=== PATIENT | female | born 1960 | race African-American/Black ===

== ENCOUNTER 2018-06-10 22:26 | Inpatient (IN) | payer MEDICARE, MEDICAID | END 2018-06-14 14:00 | disposition home or self-care (01) | LOC: TELE-WESTW 22:26 | DX: I21.4 Non-ST elevation (NSTEMI) myocardial infarction (principal); I25.118 Atherosclerotic heart disease of native coronary artery with other forms of angina pectoris; I10 Essential (primary) hypertension; K22.4 Dyskinesia of esophagus; K29.00 Acute gastritis without bleeding ==

== ENCOUNTER 2018-07-08 05:13 | Inpatient (IN) | payer MEDICARE, MEDICAID | END 2018-07-11 11:03 | disposition home or self-care (01) | LOC: ER 05:13 → TELE 07:41 → TELE-CENTR 14:57 | DX: I21.4 Non-ST elevation (NSTEMI) myocardial infarction (principal); N39.0 Urinary tract infection, site not specified; I24.9 Acute ischemic heart disease, unspecified; E11.9 Type 2 diabetes mellitus without complications; I10 Essential (primary) hypertension; E78.00 Pure hypercholesterolemia, unspecified; M79.7 Fibromyalgia ==

== ENCOUNTER 2020-01-18 15:24 | Inpatient (IN) | payer MEDICARE, MEDICAID ==
[~2020-01-18] VITALS: Ht 165.1 cm; Wt 104.0 kg
[~2020-01-18 15:24] MED LIST: ALBUAER3 IN; ARIP1TAB5 PO; ATOR20TA50 PO; CELE200C PO; CLOP75TA41 PO; DIP005TP TOP; DOCU1CAP46 PO; HALO0.053 EX; LAMO100T44 PO; LORA0.5T20 PO; LOSA100T22 PO; METO25TA93 PO; MORP30TA5 PO; PANT40TA2 PO; PERCOT PO; VALS1TAB57 PO; VALS40TA2 PO
--- NOTE | 2020-01-18 15:39 | NUR ---
Direct Admit Note: CANDELARIA HOOVER admitted to Telemetry unit as a direct admit per MD order. Patient oriented to FRAN UMAÑA, RN primary RN, unit, room, bed, and unit policies regarding patient care and visiting hours. Patient now on continuous telemetry monitoring, tele box # 80 and telemetry reading on arrival to unit is SR 85. Patient placed on bedside oxygen 2 lpm, weighed by bedscale and encouraged to call if they need something. All questions and concerns addressed, patient verbalized understanding. MD notified of patients arrival and admit orders received.
[2020-01-18] MEDS ORDERED: NITROGLYCERIN 0.4 MG SL TAB SL PRN (16:00)
[2020-01-18] MEDS ORDERED: MORPHINE SULF INJ 2 MG/ML SYRINGE 1ML IV PRN (16:00)
[2020-01-18] MEDS ORDERED: ALUM & MAG HYDROX-SIMETH LIQ(MAALOX) 30 ML PO PRN (16:00)
[2020-01-18] MEDS ORDERED: METF750T54 PO (16:37)
[2020-01-18] MEDS ORDERED: HYDR-3682 PO (16:37)
[2020-01-18] MEDS ORDERED: MUPI2CRE17 EX (16:37)
[2020-01-18] MEDS ORDERED: MORP1CAP31 PO (16:37)
[2020-01-18] MEDS ORDERED: OXYC-102 PO (16:37)
[2020-01-18] MEDS ORDERED: NITR0.4D3 TD (16:37)
[2020-01-18] MEDS ORDERED: CHOL500023 PO (16:37)
[2020-01-18] MEDS ORDERED: NIFE1TAB30 PO (16:37)
[2020-01-18] MEDS ORDERED: CALC-317 PO (16:37)
[2020-01-18] MEDS ORDERED: ROSU1TAB13 PO (16:37)
[2020-01-18] MEDS ORDERED: CLON0.5T3 PO (16:37)
[2020-01-18 16:39] VITALS: BP 178/91
--- NOTE | 2020-01-18 16:40 | NUR ---
PER MD ORDER EKG OBTAINED.
[2020-01-18 17:00] VITALS: BP 178/91
--- NOTE | 2020-01-18 17:00 | NUR ---
WOUND PHOTOS OBTAINED
[2020-01-18 17:39] LABS: Basophils # (auto) 0 10 ^3/uL (0-0.2); Basophils % (auto) 0.7 % (0.0-2.0); Eosinophils # (auto) 0.1 10 ^3/uL (0-0.8); Hemoglobin 11.8 g/dL (12.2-16.2); Monocytes # (auto) 0.1 10 ^3/uL (0-1.3); Nucleated Red Blood Cells % 0.1 %; Red Cell Distribution Width 15.3 % (11.8-14.3); White Blood Cell 6.3 10^3/uL (4.4-10.8)
[2020-01-18 17:41] LABS: Eosinophils % (auto) 2.4 % (0.0-7.0); Lymphocytes # (auto) 0.8 10 ^3/uL (0.4-5.4); Lymphocytes % (auto) 13.5 % (10.0-50.0); Mean Corpuscular Hemoglobin 25.1 pg (28.0-32.0); Mean Corpuscular Hgb Conc. 31.8 g/dL (32.0-36.0); Mean Corpuscular Volume 78.8 fL (80.0-100.0); Monocytes % (auto) 2.2 % (0.0-12.0); Neutrophils # (auto) 5.1 10 ^3/uL (1.6-8.6); Neutrophils % (auto) 81.2 % (37.0-80.0); Platelet Count (auto) 229 10^3/uL (140-450)
[2020-01-18] MEDS ORDERED: hydrOXYzine HCL 25 MG/ML VL IM PRN (17:45)
[2020-01-18] MEDS ORDERED: ONDANSETRON HCL 4 MG/2 ML VIAL IV PRN (17:45)
--- NOTE | 2020-01-18 17:45 | NUR ---
PATIENT PROVIDED WITH SPECIMEN CUP FOR SPUTUM AND URINE
[2020-01-18 17:46] LABS: Albumin 3.7 g/dL (3.4-5.0); Calcium 8.6 mg/dL (8.5-10.1)
[2020-01-18 17:50] LABS: BUN/Creatinine Ratio 13.8
[2020-01-18 17:53] LABS: Bilirubin, Total 0.2 mg/dL (0.2-1.0); Total Protein 7.7 g/dL (6.4-8.2)
--- NOTE | 2020-01-18 18:19 | NUR ---
BP AT THIS TIME IS 178/91 NO PRN MEDICATIONS AVAILABLE. 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 AWAITING CALL BACK.
--- NOTE | 2020-01-18 18:37 | NUR ---
IV insertion: IV access obtained, via clean sterile technique by inserting 22 gauge catheter at left forearm after 2 attempt. IV secured properly. No trauma to site. Patient tolerated well.
--- NOTE | 2020-01-18 18:45 | NUR ---
CLOSING NOTE: PATIENT RESTING IN BED. NO S/S OF DISTRESS. CARE ENDORSED.
--- NOTE | 2020-01-18 19:00 | NUR ---
PAGED DR. CARDOZO AT THIS TIME REGARDING BP AWAITING CALL BACK.
[2020-01-18] MEDS: ALBUTEROL SULF 2.5 MG/0.5ML(0.5%) NEB SOLN NEB SCH (19:03)
[2020-01-18] MEDS ORDERED: VALSARTAN 80 MG TAB PO ONE (19:30)
--- NOTE | 2020-01-18 19:30 | NUR ---
Blood Pressure Medication Dr. Hammad cote and was updated on the patient Blood Pressure. Dr. Charles ordered Diovan 160 mg PO once. Repeat orders to verified.
--- NOTE | 2020-01-18 19:45 | NUR ---
Opening Shift Note Assumed care of patient, awake and alert. No S/S of distress/SOB or pain. Instructed on POC and to call for assist PRN, will continue to monitor for changes Q1hr and PRN.
[2020-01-18] MEDS: SOD CHL 0.45% 1,000 ML IV SCH (19:50)
--- NOTE | 2020-01-18 19:50 | NUR ---
Medication Refused Patient refused blood pressure medication due to normal blood pressure. Blood pressure taken twice 119/56 heart rate 68.Educated patient but still refused.
[2020-01-18] MEDS: OXYCODONE W/ ACETAMINOPHEN 5/325MG TABLET PO PRN (20:07)
[2020-01-18 20:45] VITALS: BP 119/56
[2020-01-18] MEDS: PANTOPRAZOLE 40 MG/10 ML VIAL INJ IV SCH (20:59)
[2020-01-18] MEDS: cefTRIAXone 1GM/50ML D5W 50 ML IV SCH (20:59)
[2020-01-18] MEDS: methylPREDNISolone SOD SUCC 40 MG/ML VL IV SCH (21:00)
[2020-01-18] MEDS: METOPROLOL TARTRATE 25 MG TAB PO SCH (21:01)
[2020-01-18] MEDS: lamoTRIgine 100 MG TAB PO SCH (21:01)
[2020-01-18] MEDS: PRAVASTATIN SODIUM 20 MG TAB PO SCH (21:02)
--- NOTE | 2020-01-18 21:20 | NUR ---
IV insertion IV access obtained, via clean sterile technique by inserting 22 gauge catheter at after 3 attempts. IV secured properly. No trauma to site. Patient tolerated well.
[2020-01-18 22:00] VITALS: BP 155/85
[2020-01-18] MEDS: PSEUDOEPHEDRINE HCL 30 MG TAB PO SCH (22:00)
[2020-01-18] MEDS: ALBUTEROL SULF 2.5 MG/0.5ML(0.5%) NEB SOLN NEB PRN (23:06)
[2020-01-18 23:38] LABS: Urine Amorphous Crystal FEW /hpf (None Seen); Urine Bacteria FEW /hpf (None Seen); Urine Blood Negative /uL (Negative); Urine Mucus FEW (None Seen); Urine Specific Gravity 1.019 (1.001-1.035); Urine WBC 21 /hpf (0 - 5)
[2020-01-19] MEDS: OXYCODONE W/ ACETAMINOPHEN 5/325MG TABLET PO PRN ×2 (04:08→17:17)
[2020-01-19] MEDS: ALBUTEROL SULF 2.5 MG/0.5ML(0.5%) NEB SOLN NEB PRN (04:22)
[2020-01-19 05:42] VITALS: BP 149/79
[2020-01-19] MEDS: PSEUDOEPHEDRINE HCL 30 MG TAB PO SCH ×4 (05:50→21:47)
[2020-01-19] MEDS: methylPREDNISolone SOD SUCC 40 MG/ML VL IV SCH ×4 (05:51→21:45)
[2020-01-19 06:10] LABS: Basophils # (auto) 0 10 ^3/uL (0-0.2); Basophils % (auto) 0.2 % (0.0-2.0); Eosinophils # (auto) 0 10 ^3/uL (0-0.8); Hematocrit 38.2 % (36.0-46.0); Hemoglobin 12.2 g/dL (12.2-16.2); Lymphocytes # (auto) 1.1 10 ^3/uL (0.4-5.4); Lymphocytes % (auto) 15.8 % (10.0-50.0); Mean Corpuscular Hemoglobin 25.1 pg (28.0-32.0); Mean Corpuscular Hgb Conc. 31.9 g/dL (32.0-36.0); Mean Corpuscular Volume 78.6 fL (80.0-100.0); Monocytes # (auto) 0.1 10 ^3/uL (0-1.3); Monocytes % (auto) 1.8 % (0.0-12.0); Neutrophils # (auto) 5.7 10 ^3/uL (1.6-8.6); Neutrophils % (auto) 82.2 % (37.0-80.0); Nucleated Red Blood Cells % 0.1 %; Platelet Count (auto) 240 10^3/uL (140-450); Red Blood Cells 4.86 10^6/uL (4.0-5.20); Red Cell Distribution Width 15.6 % (11.8-14.3)
[2020-01-19 06:34] LABS: Potassium 4.4 mmol/L (3.5-5.1)
[2020-01-19 06:38] LABS: BUN/Creatinine Ratio 18.6; Calcium 9.1 mg/dL (8.5-10.1)
[2020-01-19] MEDS: ALBUTEROL SULF 2.5 MG/0.5ML(0.5%) NEB SOLN NEB SCH ×3 (06:45→18:49)
--- NOTE | 2020-01-19 07:15 | NUR ---
Opening Shift Note: Assumed care of patient, awake and alert. No S/S of distress/SOB or pain. Patient states "I feel much better than I did yesterday." Bed in lowest locked position, side rails up x 2, call light within reach. Patient instructed on POC and to call for assist PRN, will continue to monitor for changes Q1hr and PRN.
[2020-01-19] MEDS: SOD CHL 0.45% 1,000 ML IV SCH ×2 (08:00→12:15)
[2020-01-19 09:00] VITALS: BP 141/75
[2020-01-19] MEDS: cefTRIAXone 1GM/50ML D5W 50 ML IV SCH (09:18)
[2020-01-19] MEDS: PANTOPRAZOLE 40 MG/10 ML VIAL INJ IV SCH ×2 (09:18→21:45)
[2020-01-19] MEDS: lamoTRIgine 100 MG TAB PO SCH ×2 (09:19→21:46)
[2020-01-19] MEDS: CLOPIDOGREL BISULFATE 75 MG TAB PO SCH (09:23)
[2020-01-19] MEDS: VALSARTAN 80 MG TAB PO SCH (09:23)
[2020-01-19] MEDS: METOPROLOL TARTRATE 25 MG TAB PO SCH (09:24)
--- NOTE | 2020-01-19 10:45 | NUR ---
WOUND CARE NOTE: NOTED WOUND PHOTOS FROM OVERNIGHT ASSESSMENT, TAKEN BY BEDSIDE NURSE. PATIENT ADMITTED TO [facility] WITH DIAGNOSIS OF COPD. CURRENT BRODY SCORE IS 21. PATIENT HAS HISTORY WITH EXCEMA, WITH MULTIPLE LESIONS NOTED. PATIENT HAS SCRATCHED OPEN A SMALL AREA ON HIS BACK AND RLE. PATIENT WOULD BENEFIT FROM EOD/PRN DRESSING CHANGE TO OPEN WOUNDS AT THIS TIME. SKIN/WOUND CARE PLAN IMPLEMENTED. NO FURTHER WOUND CARE NEEDED.
[2020-01-19] MEDS ORDERED: PATIENTS OWN MEDICATION (Cholecalciferol (Vitamin D3) 1 TAB) PO SCH (12:00)
[2020-01-19] MEDS ORDERED: hydrOXYzine 25 MG TAB or CAP PO ONE (12:00)
[2020-01-19] MEDS ORDERED: ALBUTEROL SULF HFA 90MCG INH 200DOSE IN SCH (12:00)
[2020-01-19] MEDS ORDERED: hydrOXYzine 25 MG TAB or CAP PO PRN (12:00)
[2020-01-19] MEDS ORDERED: ALBUTEROL SULF 2.5 MG/0.5ML(0.5%) NEB SOLN NEB PRN (12:30)
[2020-01-19 13:00] VITALS: BP 126/65
[2020-01-19 17:00] VITALS: BP 122/74
[2020-01-19] MEDS: INSULIN LISPRO (HUMAN) 100 UNITS/ML ML SC SCH ×2 (17:11→21:49)
[2020-01-19] MEDS: clonazePAM 0.5 MG TAB PO SCH (17:11)
[2020-01-19] MEDS: metFORMIN HYDROCHLORIDE 850 MG TAB PO SCH (17:11)
[2020-01-19] MEDS ORDERED: ALBUTEROL SULF 2.5 MG/0.5ML(0.5%) NEB SOLN NEB SCH (18:00)
[2020-01-19] MEDS ORDERED: PATIENTS OWN MEDICATION (Nifedipine (Nifedipine Er) 1 TAB) PO SCH (18:00)
--- NOTE | 2020-01-19 18:17 | NUR ---
PAGED DR. CARDOZO AT THIS TIME REGARDING PATIENT PAIN LEVEL. AWAITING CALL BACK.
--- NOTE | 2020-01-19 18:48 | NUR ---
RECEIVED CALL FROM DR. CARDOZO. NEW ORDERS, READ BACK AND VERIFIED.
--- NOTE | 2020-01-19 18:49 | NUR ---
CLOSING NOTE: PATIENT RESTING IN BED. NO DISTRESS NOTED.
[2020-01-19] MEDS ORDERED: KETOROLAC TROMETH 30 MG/ML 1ML VIAL IV ONE (19:15)
--- NOTE | 2020-01-19 19:55 | NUR ---
Opening Shift Note Assumed care of patient, awake and alert. No S/S of distress/SOB. Patient c/o pain 12/02. Instructed on POC and to call for assist PRN, will continue to monitor for changes Q1hr and PRN.
[2020-01-19 20:00] VITALS: BP 134/76
[2020-01-19] MEDS: PRAVASTATIN SODIUM 20 MG TAB PO SCH (21:47)
[2020-01-19] MEDS: MUPIROCIN 2% OINT 15gm or 22gm TOP SCH (21:48)
[2020-01-19] MEDS: METOPROLOL SUCCINATE XL 50 MG TAB PO SCH (21:48)
[2020-01-19 22:00] VITALS: BP 134/76
[2020-01-19] MEDS ORDERED: METFORMIN HYDROCHLORIDE PO SCH (22:00)
[2020-01-19] MEDS ORDERED: PATIENTS OWN MEDICATION (Metoprolol Succinate (Metoprolol Succinate Er) 1 TAB) PO SCH (22:00)
[2020-01-19] MEDS ORDERED: MUPIROCIN CALCIUM 2% EX SCH (22:00)
[2020-01-20 05:00] VITALS: BP 131/68
[2020-01-20] MEDS: methylPREDNISolone SOD SUCC 40 MG/ML VL IV SCH ×3 (06:15→21:30)
[2020-01-20] MEDS: PSEUDOEPHEDRINE HCL 30 MG TAB PO SCH ×3 (06:15→21:31)
[2020-01-20] MEDS: INSULIN LISPRO (HUMAN) 100 UNITS/ML ML SC SCH ×4 (06:28→21:50)
[2020-01-20] MEDS: ALBUTEROL SULF 2.5 MG/0.5ML(0.5%) NEB SOLN NEB SCH (07:12)
[2020-01-20 08:00] VITALS: BP 148/82
[2020-01-20] MEDS: KETOROLAC TROMETH 30 MG/ML 1ML VIAL IV PRN ×2 (08:28→14:51)
[2020-01-20] MEDS: metFORMIN HYDROCHLORIDE 850 MG TAB PO SCH ×2 (08:29→18:02)
[2020-01-20 09:00] VITALS: BP 148/82
[2020-01-20] MEDS: CALCIUM CARB 500 MG CHEW TAB PO SCH (09:34)
[2020-01-20] MEDS: METOPROLOL SUCCINATE XL 50 MG TAB PO SCH ×2 (09:35→21:30)
[2020-01-20] MEDS: NIFEdipine ER 30 MG TAB PO SCH (09:36)
[2020-01-20] MEDS: CLOPIDOGREL BISULFATE 75 MG TAB PO SCH (09:36)
[2020-01-20] MEDS: lamoTRIgine 100 MG TAB PO SCH ×2 (09:37→21:30)
[2020-01-20] MEDS: CELECOXIB 100 MG CAP PO SCH (09:38)
[2020-01-20] MEDS: VALSARTAN 80 MG TAB PO SCH (09:38)
[2020-01-20] MEDS: PANTOPRAZOLE 40 MG/10 ML VIAL INJ IV SCH ×2 (09:39→21:30)
[2020-01-20] MEDS: ABILIFY 10 MG PO SCH (09:40)
[2020-01-20] MEDS: MUPIROCIN 2% OINT 15gm or 22gm TOP SCH ×2 (09:41→21:31)
[2020-01-20] MEDS ORDERED: PATIENTS OWN MEDICATION (Aripiprazole (Abilify) 10 MG) PO SCH (10:00)
[2020-01-20] MEDS ORDERED: CALCIUM CARBONATE CHOLECALCIFE PO SCH (10:00)
[2020-01-20] MEDS ORDERED: CELECOXIB 200 MG PO SCH (10:00)
[2020-01-20] MEDS: SOD CHL 0.45% 1,000 ML IV SCH ×2 (12:15→13:40)
[2020-01-20 13:00] VITALS: BP 133/76
[2020-01-20] MEDS ORDERED: ALBUTEROL SULF 2.5 MG/0.5ML(0.5%) NEB SOLN NEB SCH (13:15)
[2020-01-20] MEDS ORDERED: DEXTROSE (50%) 50ML SYRG IV PRN (13:45)
[2020-01-20] MEDS: ACCU-CHEK COMFORT CURVE STRIP VI SCH ×2 (17:00→21:31)
[2020-01-20 17:34] VITALS: BP 132/76
[2020-01-20] MEDS: clonazePAM 0.5 MG TAB PO SCH (18:01)
--- NOTE | 2020-01-20 19:35 | NUR ---
Opening Shift Note Assumed care of patient, awake and alert. No S/S of distress/SOB. Updated on POC and to call for assist PRN, patient verbalized understanding. Bed in lowest position, call light within reach, will continue to monitor for changes Q1hr and PRN.
[2020-01-20] MEDS: ALBUTEROL SULF 2.5 MG/0.5ML(0.5%) NEB SOLN NEB PRN (19:41)
[2020-01-20] MEDS: OXYCODONE W/ ACETAMINOPHEN 5/325MG TABLET PO PRN (20:09)
[2020-01-20] MEDS: PRAVASTATIN SODIUM 20 MG TAB PO SCH (21:29)
[2020-01-21 05:00] VITALS: BP 134/59
[2020-01-21] MEDS: PSEUDOEPHEDRINE HCL 30 MG TAB PO SCH (06:01)
[2020-01-21] MEDS: ACCU-CHEK COMFORT CURVE STRIP VI SCH ×2 (06:02→11:30)
[2020-01-21] MEDS: INSULIN LISPRO (HUMAN) 100 UNITS/ML ML SC SCH ×2 (06:02→11:30)
--- NOTE | 2020-01-21 07:35 | NUR ---
Opening Shift Note Received report from noc shift rn, awake and alert, sitting up in bed and in good mood. Denies pain, no SOB or s/s distress noted. Patient verbalized readiness to go home. Plan of care discussed, encouraged to call for assist PRN. Bed in locked and lowest position with x2 rails up, call light and phone within reach. Will continue to monitor for changes Q1hr and PRN.
[2020-01-21 08:00] VITALS: BP 136/73
[2020-01-21] MEDS: metFORMIN HYDROCHLORIDE 850 MG TAB PO SCH (08:29)
[2020-01-21] MEDS: methylPREDNISolone SOD SUCC 40 MG/ML VL IV SCH (08:33)
[2020-01-21] MEDS: PANTOPRAZOLE 40 MG/10 ML VIAL INJ IV SCH (08:33)
[2020-01-21] MEDS: CLOPIDOGREL BISULFATE 75 MG TAB PO SCH (08:34)
[2020-01-21] MEDS: METOPROLOL SUCCINATE XL 50 MG TAB PO SCH (08:34)
[2020-01-21] MEDS: CELECOXIB 100 MG CAP PO SCH (08:35)
[2020-01-21] MEDS: NIFEdipine ER 30 MG TAB PO SCH (08:35)
[2020-01-21] MEDS: CALCIUM CARB 500 MG CHEW TAB PO SCH (08:36)
[2020-01-21] MEDS: VALSARTAN 80 MG TAB PO SCH (08:37)
[2020-01-21] MEDS: lamoTRIgine 100 MG TAB PO SCH (08:37)
[2020-01-21] MEDS: MUPIROCIN 2% OINT 15gm or 22gm TOP SCH (08:37)
[2020-01-21] MEDS: ABILIFY 10 MG PO SCH (08:38)
[2020-01-21 09:00] VITALS: BP 136/73
[2020-01-21] MEDS ORDERED: FLUT250M2 INH (11:32)
[2020-01-21] MEDS ORDERED: ALBU1.257 IN (11:32)
[2020-01-21] MEDS: SOD CHL 0.45% 1,000 ML IV SCH (12:19)
[2020-01-21 13:00] VITALS: BP 137/74
[2020-01-21 13:12] VITALS: BP 136/73
--- NOTE | 2020-01-21 14:00 | NUR ---
Patient discharged home per MD's order. A/O x4, no s/s distress. Verbalized understanding of discharge summary and follow up instructions. IV discontinued and tele monitor returned to ICU.
[2020-01-22] MEDS ORDERED: ERGOCALCIFEROL 50,000 UNIT(1.25MG) CAP PO SCH (12:30)
== END 2020-01-21 14:00 | disposition home or self-care (01) | DRG 202 ==
LOC: TELE-WESTW 15:24
PROVIDERS: ADMIT Specialist; ATTEND Specialist
DX: J45.901 Unspecified asthma with (acute) exacerbation (principal); J44.1 Chronic obstructive pulmonary disease with (acute) exacerbation; F11.20 Opioid dependence, uncomplicated; J06.9 Acute upper respiratory infection, unspecified; M79.7 Fibromyalgia; K22.4 Dyskinesia of esophagus; K21.9 Gastro-esophageal reflux disease without esophagitis; I10 Essential (primary) hypertension; E11.9 Type 2 diabetes mellitus without complications; E66.09 Other obesity due to excess calories; E86.1 Hypovolemia; F31.9 Bipolar disorder, unspecified; G89.29 Other chronic pain; I25.10 Atherosclerotic heart disease of native coronary artery without angina pectoris; I25.2 Old myocardial infarction; Z79.84 Long term (current) use of oral hypoglycemic drugs; Z82.49 Family history of ischemic heart disease and other diseases of the circulatory system; Z83.3 Family history of diabetes mellitus; Z86.73 Personal history of transient ischemic attack (TIA), and cerebral infarction without residual deficits; Z87.891 Personal history of nicotine dependence; Z68.37 Body mass index [BMI] 37.0-37.9, adult; Z88.8 Allergy status to other drugs, medicaments and biological substances; Z71.3 Dietary counseling and surveillance
CPT/HCPCS: 36415; 71045; 80048; 80053; 81001; 82962; 83036; 85025; 87070; 87205; 93005; 94640; C9113; G0378; J0696; J1815; J1885

== ENCOUNTER 2020-06-23 12:47 | Inpatient (IN) | payer MEDICARE, MEDICAID ==
[~2020-06-23] VITALS: Ht 165.1 cm; Wt 103.9 kg
[~2020-06-23 12:47] MED LIST changes: +ALBU1.257 IN; -ATOR20TA50 PO; +CALC-317 PO; +CHOL500023 PO; +CLON0.5T3 PO; -CLOP75TA41 PO; +CLOP75TA70 PO; -DIP005TP TOP; +FLUT250M2 INH; +HYDR-3682 PO; -LAMO100T44 PO; -LORA0.5T20 PO; -LOSA100T22 PO; +METF750T54 PO; +MORP1CAP31 PO; -MORP30TA5 PO; +MUPI2CRE17 EX; +NIFE1TAB30 PO; +NITR0.4D5 TD; +OXYC-102 PO; -PANT40TA2 PO; -PERCOT PO; +ROSU1TAB13 PO; -VALS1TAB57 PO; -VALS40TA2 PO
[2020-06-23] MEDS ORDERED: MORPHINE SULFATE 4 MG/ML SYR/VIAL IV ONE (13:30)
[2020-06-23] MEDS ORDERED: ONDANSETRON HCL 4 MG/2 ML VIAL IV ONE (13:30)
[2020-06-23 13:58] LABS: Eosinophils # (auto) 0.3 10 ^3/uL (0-0.8); Hemoglobin 11.6 g/dL (12.2-16.2); Lymphocytes # (auto) 0.9 10 ^3/uL (0.4-5.4); Monocytes # (auto) 0.5 10 ^3/uL (0-1.3); Neutrophils # (auto) 2.5 10 ^3/uL (1.6-8.6); Nucleated Red Blood Cells % 0.1 %; White Blood Cell 4.3 10^3/uL (4.4-10.8)
[2020-06-23 14:01] LABS: Basophils # (auto) 0.1 10 ^3/uL (0-0.2); Basophils % (auto) 1.4 % (0.0-2.0); Eosinophils % (auto) 6.9 % (0.0-7.0); Hematocrit 35.5 % (36.0-46.0); Lymphocytes % (auto) 21.1 % (10.0-50.0); Mean Corpuscular Hemoglobin 25.9 pg (28.0-32.0); Mean Corpuscular Hgb Conc. 32.7 g/dL (32.0-36.0); Mean Corpuscular Volume 79.2 fL (80.0-100.0); Monocytes % (auto) 12.8 % (0.0-12.0); Neutrophils % (auto) 57.8 % (37.0-80.0); Platelet Count (auto) 224 10^3/uL (140-450); Red Blood Cells 4.49 10^6/uL (4.0-5.20); Red Cell Distribution Width 15.3 % (11.8-14.3)
[2020-06-23 14:19] LABS: INR 0.98 (0.9-1.15); Partial Thromboplastin Time 28.1 sec (23.0-31.2)
[2020-06-23 14:24] LABS: Albumin 3.3 g/dL (3.4-5.0); Calcium 8.6 mg/dL (8.5-10.1); Magnesium 1.9 mg/dL (1.6-2.6); Potassium 4.1 mmol/L (3.5-5.1)
[2020-06-23 14:31] LABS: BUN/Creatinine Ratio 18.5; Bilirubin, Total 0.4 mg/dL (0.2-1.0); Total Protein 7.1 g/dL (6.4-8.2)
[2020-06-23] MEDS ORDERED: NITROGLYCERIN 0.4 MG SL TAB SL PRN (15:00)
[2020-06-23] MEDS ORDERED: DOCUSATE SOD 100 MG CAP PO PRN (15:00)
[2020-06-23] MEDS ORDERED: LORazepam 2MG/ML-1ML VIAL IV PRN (15:15)
[2020-06-23] MEDS ORDERED: ERGOCALCIFEROL 50,000 UNIT(1.25MG) CAP PO SCH (15:15)
[2020-06-23] MEDS ORDERED: SOD CHL 0.45% 1,000 ML IV ONE (15:15)
[2020-06-23] MEDS: MORPHINE SULF INJ 2 MG/ML SYRINGE 1ML IV PRN (16:43)
[2020-06-23] MEDS: INSULIN LISPRO (HUMAN) 100 UNITS/ML ML SC SCH ×2 (17:00→22:30)
[2020-06-23] MEDS: ACCU-CHEK COMFORT CURVE STRIP VI SCH ×2 (17:13→22:29)
[2020-06-23 17:16] VITALS: BP 123/51
[2020-06-23] MEDS ORDERED: ALBUTEROL SULF 90 MCG IN PRN (18:00)
[2020-06-23 18:11] VITALS: BP 137/80
[2020-06-23] MEDS: NIFEdipine ER 30 MG TAB PO SCH (18:49)
[2020-06-23] MEDS: clonazePAM 0.5 MG TAB PO SCH (18:49)
[2020-06-23] MEDS: HYDROmorphone HCL 2 MG/ML VL IV PRN (19:49)
[2020-06-23] MEDS: Fluticasone-Salmeterol (Advair Diskus 250/50) INHALER IN SCH (22:00)
[2020-06-23] MEDS: ACETAMINOPHEN PO SCH (22:00)
[2020-06-23] MEDS: OXYCODONE PO SCH (22:00)
[2020-06-23] MEDS: METOPROLOL SUCCINATE XL 50 MG TAB PO SCH (22:29)
[2020-06-23] MEDS: MUPIROCIN 2% OINT 15gm or 22gm TOP SCH (22:29)
[2020-06-24] MEDS: HYDROmorphone HCL 2 MG/ML VL IV PRN ×4 (02:50→22:19)
[2020-06-24 04:59] VITALS: BP 121/65
[2020-06-24] MEDS: OXYCODONE PO SCH ×3 (06:00→22:00)
[2020-06-24] MEDS: ACETAMINOPHEN PO SCH ×3 (06:00→22:00)
[2020-06-24 06:15] LABS: Basophils # (auto) 0 10 ^3/uL (0-0.2); Basophils % (auto) 0.8 % (0.0-2.0); Eosinophils # (auto) 0.3 10 ^3/uL (0-0.8); Hematocrit 34.8 % (36.0-46.0); Hemoglobin 11.3 g/dL (12.2-16.2); Lymphocytes # (auto) 1.1 10 ^3/uL (0.4-5.4); Lymphocytes % (auto) 31.5 % (10.0-50.0); Mean Corpuscular Hemoglobin 25.9 pg (28.0-32.0); Mean Corpuscular Hgb Conc. 32.6 g/dL (32.0-36.0); Mean Corpuscular Volume 79.7 fL (80.0-100.0); Monocytes # (auto) 0.6 10 ^3/uL (0-1.3); Monocytes % (auto) 15.5 % (0.0-12.0); Neutrophils # (auto) 1.6 10 ^3/uL (1.6-8.6); Neutrophils % (auto) 44.2 % (37.0-80.0); Nucleated Red Blood Cells % 0.1 %; Platelet Count (auto) 208 10^3/uL (140-450); Red Blood Cells 4.36 10^6/uL (4.0-5.20); Red Cell Distribution Width 15.4 % (11.8-14.3); White Blood Cell 3.6 10^3/uL (4.4-10.8)
[2020-06-24] MEDS: ACCU-CHEK COMFORT CURVE STRIP VI SCH ×4 (06:16→22:12)
[2020-06-24] MEDS: INSULIN LISPRO (HUMAN) 100 UNITS/ML ML SC SCH ×4 (06:16→22:00)
[2020-06-24 06:27] LABS: Potassium 4.1 mmol/L (3.5-5.1)
[2020-06-24 06:39] LABS: Albumin 3.2 g/dL (3.4-5.0); BUN/Creatinine Ratio 19.6; Bilirubin, Total 0.3 mg/dL (0.2-1.0); Calcium 8.5 mg/dL (8.5-10.1); Total Protein 6.6 g/dL (6.4-8.2)
[2020-06-24] MEDS: ALBUTEROL SULF 2.5 MG/0.5ML(0.5%) NEB SOLN NEB PRN (07:36)
[2020-06-24 08:48] VITALS: BP 118/53
[2020-06-24] MEDS: ROSUVASTATIN CALCIUM 10 MG PO SCH (10:00)
[2020-06-24] MEDS: Fluticasone-Salmeterol (Advair Diskus 250/50) INHALER IN SCH ×2 (10:00→22:00)
[2020-06-24] MEDS: CALCIUM CARBONATE CHOLECALCIFE PO SCH (10:00)
[2020-06-24] MEDS: cefTRIAXone 1GM/50ML D5W 50 ML IV SCH (10:20)
[2020-06-24] MEDS: NITROGLYCERIN 0.4MG/HR TOPICAL PATCH TD SCH (10:21)
[2020-06-24] MEDS: CLOPIDOGREL BISULFATE 75 MG TAB PO SCH (10:21)
[2020-06-24] MEDS: METOPROLOL SUCCINATE XL 50 MG TAB PO SCH ×2 (10:22→22:11)
[2020-06-24] MEDS: MUPIROCIN 2% OINT 15gm or 22gm TOP SCH ×2 (10:22→22:12)
[2020-06-24] MEDS ORDERED: KETOROLAC TROMETH 30 MG/ML 1ML VIAL IV ONE (10:30)
[2020-06-24 13:00] VITALS: BP 131/62
[2020-06-24] MEDS ORDERED: ALUM & MAG HYDROX-SIMETH LIQ(MAALOX) 30 ML PO PRN (15:30)
[2020-06-24] MEDS ORDERED: ALUM & MAG HYDROX-SIMETH LIQ(MAALOX) 30 ML PO ONE (15:30)
[2020-06-24] MEDS ORDERED: IOHEXOL 350 MG/ML 100ML IJ ONE (15:33)
[2020-06-24 16:51] VITALS: BP 134/68
[2020-06-24] MEDS ORDERED: KETOROLAC TROMETH 30 MG/ML 1ML VIAL IV PRN (18:30)
[2020-06-24] MEDS: clonazePAM 0.5 MG TAB PO SCH (18:33)
[2020-06-24] MEDS: NIFEdipine ER 30 MG TAB PO SCH (18:34)
[2020-06-24 22:09] VITALS: BP 124/62
[2020-06-24] MEDS: PANTOPRAZOLE 40 MG/10 ML VIAL INJ IV SCH (22:10)
[2020-06-25 05:00] VITALS: BP 132/76
[2020-06-25] MEDS: ACETAMINOPHEN PO SCH ×3 (05:55→21:28)
[2020-06-25] MEDS: OXYCODONE PO SCH ×3 (05:55→21:28)
[2020-06-25] MEDS: INSULIN LISPRO (HUMAN) 100 UNITS/ML ML SC SCH ×4 (06:29→21:29)
[2020-06-25] MEDS: ACCU-CHEK COMFORT CURVE STRIP VI SCH ×4 (06:31→21:31)
[2020-06-25] MEDS: ALBUTEROL SULF 2.5 MG/0.5ML(0.5%) NEB SOLN NEB PRN (07:58)
[2020-06-25 08:00] VITALS: BP 124/62
[2020-06-25] MEDS: HYDROmorphone HCL 2 MG/ML VL IV PRN ×2 (08:32→19:30)
[2020-06-25 09:00] VITALS: BP 133/76
[2020-06-25] MEDS: PANTOPRAZOLE 40 MG/10 ML VIAL INJ IV SCH ×2 (09:41→21:31)
[2020-06-25] MEDS: Fluticasone-Salmeterol (Advair Diskus 250/50) INHALER IN SCH ×2 (09:41→21:28)
[2020-06-25] MEDS: ROSUVASTATIN CALCIUM 10 MG PO SCH (09:42)
[2020-06-25] MEDS: CLOPIDOGREL BISULFATE 75 MG TAB PO SCH (09:42)
[2020-06-25] MEDS: CALCIUM CARBONATE CHOLECALCIFE PO SCH (09:42)
[2020-06-25] MEDS: cefTRIAXone 1GM/50ML D5W 50 ML IV SCH (09:42)
[2020-06-25] MEDS: NITROGLYCERIN 0.4MG/HR TOPICAL PATCH TD SCH (09:43)
[2020-06-25] MEDS: MUPIROCIN 2% OINT 15gm or 22gm TOP SCH ×2 (09:43→21:31)
[2020-06-25] MEDS: METOPROLOL SUCCINATE XL 50 MG TAB PO SCH ×2 (10:00→21:40)
[2020-06-25] MEDS ORDERED: CITALOPRAM HYDROBR 20 MG TAB PO ONE ×2 (11:30→11:45)
[2020-06-25 13:00] VITALS: BP 119/71
[2020-06-25] MEDS: clonazePAM 0.5 MG TAB PO SCH (16:58)
[2020-06-25 17:00] VITALS: BP 139/65
[2020-06-25] MEDS: NIFEdipine ER 30 MG TAB PO SCH (17:00)
[2020-06-25 22:00] VITALS: BP 132/76
[2020-06-26 05:13] VITALS: BP 117/61
[2020-06-26] MEDS: OXYCODONE PO SCH ×3 (06:00→21:18)
[2020-06-26] MEDS: ACETAMINOPHEN PO SCH ×3 (06:00→21:18)
[2020-06-26] MEDS: ACCU-CHEK COMFORT CURVE STRIP VI SCH ×4 (06:55→21:19)
[2020-06-26] MEDS: INSULIN LISPRO (HUMAN) 100 UNITS/ML ML SC SCH ×4 (06:55→21:18)
[2020-06-26 08:00] VITALS: BP 132/76
[2020-06-26] MEDS: MORPHINE SULF INJ 2 MG/ML SYRINGE 1ML IV PRN (08:52)
[2020-06-26 09:00] VITALS: BP 131/68
[2020-06-26] MEDS: Fluticasone-Salmeterol (Advair Diskus 250/50) INHALER IN SCH ×2 (09:17→21:17)
[2020-06-26] MEDS: NITROGLYCERIN 0.4MG/HR TOPICAL PATCH TD SCH (09:18)
[2020-06-26] MEDS: PANTOPRAZOLE 40 MG/10 ML VIAL INJ IV SCH ×2 (09:30→21:48)
[2020-06-26] MEDS: CITALOPRAM HYDROBR 20 MG TAB PO SCH (09:31)
[2020-06-26] MEDS: CLOPIDOGREL BISULFATE 75 MG TAB PO SCH (09:31)
[2020-06-26] MEDS: MUPIROCIN 2% OINT 15gm or 22gm TOP SCH ×2 (09:31→21:50)
[2020-06-26] MEDS: cefTRIAXone 1GM/50ML D5W 50 ML IV SCH (09:31)
[2020-06-26] MEDS: METOPROLOL SUCCINATE XL 50 MG TAB PO SCH ×2 (09:32→21:49)
[2020-06-26] MEDS: ROSUVASTATIN CALCIUM 10 MG PO SCH (10:00)
[2020-06-26] MEDS ORDERED: CITALOPRAM HYDROBR 20 MG TAB PO SCH (10:00)
[2020-06-26] MEDS: CALCIUM CARBONATE CHOLECALCIFE PO SCH (10:00)
[2020-06-26 13:00] VITALS: BP 153/82
[2020-06-26 17:00] VITALS: BP 129/94
[2020-06-26] MEDS: clonazePAM 0.5 MG TAB PO SCH (17:03)
[2020-06-26] MEDS: NIFEdipine ER 30 MG TAB PO SCH (17:05)
[2020-06-26] MEDS: HYDROmorphone HCL 2 MG/ML VL IV PRN ×2 (17:06→21:16)
[2020-06-26 21:55] VITALS: BP 141/79
[2020-06-27] VITALS (7 sets, daily range): BP systolic 107–145; BP diastolic 53–89
[2020-06-27] MEDS: ACETAMINOPHEN PO SCH ×2 (05:03→14:00)
[2020-06-27] MEDS: OXYCODONE PO SCH ×2 (05:03→14:00)
[2020-06-27] MEDS: INSULIN LISPRO (HUMAN) 100 UNITS/ML ML SC SCH ×2 (06:21→11:30)
[2020-06-27] MEDS: ACCU-CHEK COMFORT CURVE STRIP VI SCH ×2 (06:22→11:30)
[2020-06-27] MEDS: HYDROmorphone HCL 2 MG/ML VL IV PRN (08:41)
[2020-06-27] MEDS ORDERED: ADENOSINE 87 MG in GIVE UN-DILUTED 0 ML IV STA (08:44)
[2020-06-27] MEDS: CITALOPRAM HYDROBR 20 MG TAB PO SCH (10:00)
[2020-06-27] MEDS: ROSUVASTATIN CALCIUM 10 MG PO SCH (10:00)
[2020-06-27] MEDS: CALCIUM CARBONATE CHOLECALCIFE PO SCH (10:00)
[2020-06-27] MEDS: Fluticasone-Salmeterol (Advair Diskus 250/50) INHALER IN SCH (10:00)
[2020-06-27] MEDS ORDERED: ALBUTEROL SULF 2.5 MG/0.5ML(0.5%) NEB SOLN ONE (10:41)
[2020-06-27] MEDS: ALBUTEROL SULF 2.5 MG/0.5ML(0.5%) NEB SOLN NEB PRN (10:42)
[2020-06-27] MEDS: PANTOPRAZOLE 40 MG/10 ML VIAL INJ IV SCH (11:43)
[2020-06-27] MEDS: cefTRIAXone 1GM/50ML D5W 50 ML IV SCH (11:44)
[2020-06-27] MEDS: CLOPIDOGREL BISULFATE 75 MG TAB PO SCH (11:46)
[2020-06-27] MEDS: NITROGLYCERIN 0.4MG/HR TOPICAL PATCH TD SCH (11:47)
[2020-06-27] MEDS: METOPROLOL SUCCINATE XL 50 MG TAB PO SCH (11:47)
[2020-06-27] MEDS: MUPIROCIN 2% OINT 15gm or 22gm TOP SCH (11:48)
== END 2020-06-27 16:45 | disposition home or self-care (01) | DRG 303 ==
LOC: EDBD 12:47 → ER 12:47 → EDUNIT# 12:47 → TELE 12:48 → TELE-WESTW 17:50
PROVIDERS: ADMIT Specialist; ATTEND Specialist
DX: I25.119 Atherosclerotic heart disease of native coronary artery with unspecified angina pectoris (principal); N39.0 Urinary tract infection, site not specified; E11.9 Type 2 diabetes mellitus without complications; E78.00 Pure hypercholesterolemia, unspecified; I10 Essential (primary) hypertension; F31.9 Bipolar disorder, unspecified; M79.7 Fibromyalgia; E66.09 Other obesity due to excess calories; S41.102A Unspecified open wound of left upper arm, initial encounter; K22.4 Dyskinesia of esophagus; S41.101A Unspecified open wound of right upper arm, initial encounter; Z20.822 Contact with and (suspected) exposure to COVID-19; X58.XXXA Exposure to other specified factors, initial encounter; J44.9 Chronic obstructive pulmonary disease, unspecified; L30.9 Dermatitis, unspecified; Y93.89 Activity, other specified; Y92.89 Other specified places as the place of occurrence of the external cause; Y99.8 Other external cause status; Z68.34 Body mass index [BMI] 34.0-34.9, adult; Z88.2 Allergy status to sulfonamides; Z79.02 Long term (current) use of antithrombotics/antiplatelets; Z79.84 Long term (current) use of oral hypoglycemic drugs; Z79.899 Other long term (current) drug therapy; Z82.49 Family history of ischemic heart disease and other diseases of the circulatory system; Z83.3 Family history of diabetes mellitus; Z86.73 Personal history of transient ischemic attack (TIA), and cerebral infarction without residual deficits; Z79.82 Long term (current) use of aspirin; Z87.891 Personal history of nicotine dependence; Z90.710 Acquired absence of both cervix and uterus; Z91.14 Patient's other noncompliance with medication regimen; Z98.61 Coronary angioplasty status; I25.2 Old myocardial infarction
CPT/HCPCS: 36415; 71045; 78452; 78582; 80053; 80061; 82962; 83036; 83735; 83880; 84443; 84484; 85025; 85610; 85730; 87426; 93005; 93017; 93306; 94640; 96361; 96374; 96375; C9113; G0378; J0153; J0696; J2405

== ENCOUNTER 2020-07-11 19:49 | Inpatient (IN) | payer MEDICARE, MEDICAID ==
[~2020-07-11] VITALS: Ht 167.6 cm; Wt 104.4 kg
[~2020-07-11 19:49] MED LIST changes: -MUPI2CRE17 EX; +MUPI2CRE17 TOP
[2020-07-11 22:00] VITALS: BP 128/73
[2020-07-11] MEDS ORDERED: KETOROLAC TROMETH 30 MG/ML 1ML VIAL IV PRN (22:30)
[2020-07-11] MEDS ORDERED: ALBUTEROL SULF 2.5 MG/0.5ML(0.5%) NEB SOLN NEB PRN (22:30)
[2020-07-11] MEDS: methylPREDNISolone SOD SUCC 40 MG/ML VL IV SCH (22:49)
[2020-07-11] MEDS: SOD CHL 0.45% 1,000 ML IV SCH (22:50)
[2020-07-11] MEDS: cefTRIAXone 1GM/50ML D5W 50 ML IV SCH (22:50)
[2020-07-11 23:02] LABS: Basophils # (auto) 0.1 10 ^3/uL (0-0.2); Basophils % (auto) 1.4 % (0.0-2.0); Mean Corpuscular Hgb Conc. 31.7 g/dL (32.0-36.0); Monocytes # (auto) 0.7 10 ^3/uL (0-1.3); Neutrophils # (auto) 2.7 10 ^3/uL (1.6-8.6); Nucleated Red Blood Cells % 0.2 %
[2020-07-11 23:04] LABS: Eosinophils % (auto) 14.3 % (0.0-7.0); Hematocrit 37.7 % (36.0-46.0); Lymphocytes # (auto) 2.4 10 ^3/uL (0.4-5.4); Mean Corpuscular Hemoglobin 25.1 pg (28.0-32.0); Mean Corpuscular Volume 79.3 fL (80.0-100.0); Monocytes % (auto) 10.3 % (0.0-12.0); Platelet Count (auto) 257 10^3/uL (140-450); Red Blood Cells 4.76 10^6/uL (4.0-5.20); Red Cell Distribution Width 15.6 % (11.8-14.3); White Blood Cell 6.8 10^3/uL (4.4-10.8)
[2020-07-11 23:22] LABS: Albumin 3.4 g/dL (3.4-5.0); BUN/Creatinine Ratio 21.1; Calcium 8.3 mg/dL (8.5-10.1); Magnesium 1.9 mg/dL (1.6-2.6)
[2020-07-11 23:25] LABS: Bilirubin, Total 0.1 mg/dL (0.2-1.0); INR 1.02 (0.9-1.15); Partial Thromboplastin Time 28.4 sec (23.0-31.2); Total Protein 7.2 g/dL (6.4-8.2)
[2020-07-11] MEDS: HYDROmorphone HCL 2 MG/ML VL IV PRN (23:29)
[2020-07-12 02:31] LABS: Urine Bacteria NONE SEEN /hpf (None Seen); Urine Blood Negative /uL (Negative); Urine Mucus FEW (None Seen); Urine Specific Gravity 1.024 (1.001-1.035); Urine WBC 26 /hpf (0 - 5)
[2020-07-12] MEDS: ALBUTEROL SULF 2.5 MG/0.5ML(0.5%) NEB SOLN NEB SCH ×4 (02:51→21:39)
[2020-07-12 05:00] VITALS: BP 119/62
[2020-07-12] MEDS: methylPREDNISolone SOD SUCC 40 MG/ML VL IV SCH ×3 (05:06→22:11)
[2020-07-12] MEDS ORDERED: MORPHINE SULF INJ 2 MG/ML SYRINGE 1ML IV PRN (05:45)
[2020-07-12] MEDS ORDERED: NITROGLYCERIN 0.4 MG SL TAB SL PRN (05:45)
[2020-07-12 08:24] LABS: Basophils # (auto) 0 10 ^3/uL (0-0.2); Eosinophils # (auto) 0 10 ^3/uL (0-0.8); Eosinophils % (auto) 0.2 % (0.0-7.0); Lymphocytes # (auto) 0.9 10 ^3/uL (0.4-5.4); Monocytes # (auto) 0.1 10 ^3/uL (0-1.3); Neutrophils # (auto) 4.4 10 ^3/uL (1.6-8.6); White Blood Cell 5.4 10^3/uL (4.4-10.8)
[2020-07-12 08:26] LABS: Basophils % (auto) 0.5 % (0.0-2.0); Hematocrit 37.4 % (36.0-46.0); Lymphocytes % (auto) 16.3 % (10.0-50.0); Mean Corpuscular Hemoglobin 25.3 pg (28.0-32.0); Mean Corpuscular Hgb Conc. 32.2 g/dL (32.0-36.0); Mean Corpuscular Volume 78.7 fL (80.0-100.0); Monocytes % (auto) 1.4 % (0.0-12.0); Neutrophils % (auto) 81.6 % (37.0-80.0); Nucleated Red Blood Cells % 0.1 %; Platelet Count (auto) 253 10^3/uL (140-450); Red Blood Cells 4.75 10^6/uL (4.0-5.20); Red Cell Distribution Width 15.9 % (11.8-14.3)
[2020-07-12 08:45] LABS: Potassium 4.2 mmol/L (3.5-5.1)
[2020-07-12 08:52] LABS: Albumin 3.2 g/dL (3.4-5.0); Bilirubin, Total 0.3 mg/dL (0.2-1.0); Calcium 8.4 mg/dL (8.5-10.1)
[2020-07-12 09:15] VITALS: BP 135/85
[2020-07-12] MEDS: LORATADINE 10 MG TAB PO SCH (09:18)
[2020-07-12] MEDS: FLUTICASONE PROP NASAL SPR 0.05 % (50MCG) 16GM EACHNOSTRI SCH ×2 (09:18→22:21)
[2020-07-12] MEDS: levoFLOXacin 500 MG TAB PO SCH (09:19)
[2020-07-12] MEDS: HYDROmorphone HCL 2 MG/ML VL IV PRN ×2 (09:20→17:30)
[2020-07-12] MEDS ORDERED: ALBUTEROL SULF 2.5 MG/0.5ML(0.5%) NEB SOLN NEB SCH (10:00)
[2020-07-12] MEDS ORDERED: ESCI5TAB PO (10:11)
[2020-07-12] MEDS: PSEUDOEPHEDRINE HCL 30 MG TAB PO SCH ×2 (10:34→22:12)
[2020-07-12] MEDS ORDERED: PATIENTS OWN MEDICATION (Cholecalciferol (Vitamin D3) 1 TAB) PO SCH (11:45)
[2020-07-12] MEDS ORDERED: DOCUSATE SOD 100 MG CAP PO PRN (11:45)
[2020-07-12] MEDS ORDERED: ALBUTEROL SULF HFA 90MCG INH 200DOSE IN SCH (12:00)
[2020-07-12 13:00] VITALS: BP 131/89
[2020-07-12] MEDS: OXYCODONE W/ ACETAMINOPHEN 5/325MG TABLET PO SCH ×2 (13:49→22:10)
[2020-07-12] MEDS ORDERED: ACETAMINOPHEN PO SCH (14:00)
[2020-07-12] MEDS ORDERED: OXYCODONE PO SCH (14:00)
[2020-07-12] MEDS ORDERED: DEXTROSE (50%) 50ML SYRG IV PRN (14:00)
[2020-07-12 17:00] VITALS: BP 145/77
[2020-07-12] MEDS: ACCU-CHEK COMFORT CURVE STRIP VI SCH ×2 (17:06→22:13)
[2020-07-12] MEDS: InsuLIN REG 1unit/0.01ml Soln (100units/ml) SC SCH ×2 (17:07→22:04)
[2020-07-12] MEDS: NIFEdipine ER 30 MG TAB PO SCH (17:22)
[2020-07-12] MEDS ORDERED: ALBUTEROL SULF 2.5 MG/0.5ML(0.5%) NEB SOLN NEB PRN (18:00)
[2020-07-12] MEDS ORDERED: PATIENTS OWN MEDICATION (Nifedipine (Nifedipine Er) 1 TAB) PO SCH (18:00)
[2020-07-12] MEDS: cefTRIAXone 1GM/50ML D5W 50 ML IV SCH (19:54)
[2020-07-12] MEDS ORDERED: OXYC20TA69 PO (20:44)
[2020-07-12] MEDS ORDERED: QUET25TA46 PO (20:44)
[2020-07-12] MEDS ORDERED: MULT1TAB69 PO (20:44)
[2020-07-12] MEDS ORDERED: METO-289 PO (20:44)
[2020-07-12] MEDS ORDERED: PATIENTS OWN MEDICATION (Metoprolol Succinate (Metoprolol Succinate Er) 1 TAB) PO SCH (22:00)
[2020-07-12] MEDS ORDERED: METFORMIN HYDROCHLORIDE PO SCH (22:00)
[2020-07-12] MEDS: Fluticasone-Salmeterol (Advair Diskus 250/50) IN SCH (22:11)
[2020-07-12] MEDS: MUPIROCIN 2% OINT 15gm or 22gm TOP SCH (22:12)
[2020-07-12] MEDS: metFORMIN HYDROCHLORIDE 500 MG TAB PO SCH (22:12)
[2020-07-12] MEDS: HALOBETASOL PROPIONATE 0.05% TOP SCH (22:12)
[2020-07-12 22:14] VITALS: BP 143/82
[2020-07-12] MEDS: SOD CHL 0.45% 1,000 ML IV SCH (22:45)
[2020-07-13] MEDS: HYDROmorphone HCL 2 MG/ML VL IV PRN ×2 (01:28→13:15)
[2020-07-13] MEDS: ALBUTEROL SULF 2.5 MG/0.5ML(0.5%) NEB SOLN NEB SCH ×6 (02:00→22:11)
[2020-07-13] MEDS: OXYCODONE W/ ACETAMINOPHEN 5/325MG TABLET PO SCH ×2 (04:38→14:00)
[2020-07-13] MEDS: methylPREDNISolone SOD SUCC 40 MG/ML VL IV SCH ×4 (04:38→21:34)
[2020-07-13 05:30] VITALS: BP 119/64
[2020-07-13] MEDS: ACCU-CHEK COMFORT CURVE STRIP VI SCH ×4 (06:11→21:36)
[2020-07-13] MEDS: InsuLIN REG 1unit/0.01ml Soln (100units/ml) SC SCH ×4 (06:12→21:43)
[2020-07-13 09:00] VITALS: BP 144/87
[2020-07-13] MEDS: Fluticasone-Salmeterol (Advair Diskus 250/50) IN SCH ×2 (09:14→21:50)
[2020-07-13] MEDS: FLUTICASONE PROP NASAL SPR 0.05 % (50MCG) 16GM EACHNOSTRI SCH ×2 (09:14→21:50)
[2020-07-13] MEDS: ROSUVASTATIN CALCIUM 10 MG PO SCH (09:15)
[2020-07-13] MEDS: LORATADINE 10 MG TAB PO SCH (09:15)
[2020-07-13] MEDS: CELECOXIB 100 MG CAP PO SCH (09:15)
[2020-07-13] MEDS: HALOBETASOL PROPIONATE 0.05% TOP SCH ×2 (09:16→21:35)
[2020-07-13] MEDS: MUPIROCIN 2% OINT 15gm or 22gm TOP SCH ×2 (09:16→21:51)
[2020-07-13] MEDS: metFORMIN HYDROCHLORIDE 500 MG TAB PO SCH ×2 (09:16→21:50)
[2020-07-13] MEDS: CLOPIDOGREL BISULFATE 75 MG TAB PO SCH (09:16)
[2020-07-13] MEDS: levoFLOXacin 500 MG TAB PO SCH (09:16)
[2020-07-13] MEDS: PSEUDOEPHEDRINE HCL 30 MG TAB PO SCH ×2 (09:16→21:35)
[2020-07-13] MEDS ORDERED: ESCITALOPRAM OXALATE 5 MG PO SCH (10:00)
[2020-07-13] MEDS ORDERED: CHOLECALCIFEROL (VITD3) 2,000 UNIT CAP/TAB PO SCH (12:30)
[2020-07-13 13:00] VITALS: BP 143/77
[2020-07-13] MEDS ORDERED: ALUM & MAG HYDROX-SIMETH LIQ(MAALOX) 30 ML GT PRN (14:45)
[2020-07-13] MEDS: cefTRIAXone 1GM/50ML D5W 50 ML IV SCH ×2 (15:11→21:33)
[2020-07-13 17:00] VITALS: BP 149/86
[2020-07-13] MEDS: NIFEdipine ER 30 MG TAB PO SCH (17:40)
[2020-07-13] MEDS: PANTOPRAZOLE 40 MG/10 ML VIAL INJ IV SCH (21:34)
[2020-07-13] MEDS: KETOROLAC TROMETH 30 MG/ML 1ML VIAL IV PRN (21:37)
[2020-07-13 22:00] VITALS: BP 139/72
[2020-07-13] MEDS: SOD CHL 0.45% 1,000 ML IV SCH (22:39)
[2020-07-14] MEDS: ALBUTEROL SULF 2.5 MG/0.5ML(0.5%) NEB SOLN NEB SCH ×3 (02:00→09:57)
[2020-07-14 05:00] VITALS: BP 125/78
[2020-07-14] MEDS: ACCU-CHEK COMFORT CURVE STRIP VI SCH ×2 (06:31→11:35)
[2020-07-14] MEDS: InsuLIN REG 1unit/0.01ml Soln (100units/ml) SC SCH ×2 (06:33→11:30)
[2020-07-14 09:00] VITALS: BP 151/53
[2020-07-14] MEDS ORDERED: LORA-483 PO (09:16)
[2020-07-14] MEDS ORDERED: CEFA-122 PO ×2 (09:16→09:17)
[2020-07-14] MEDS ORDERED: FLUT110A INH (09:19)
[2020-07-14] MEDS ORDERED: FLUT50SP EACHNOSTRI (09:19)
[2020-07-14] MEDS: LORATADINE 10 MG TAB PO SCH (09:41)
[2020-07-14] MEDS: MUPIROCIN 2% OINT 15gm or 22gm TOP SCH (09:41)
[2020-07-14] MEDS: FLUTICASONE PROP NASAL SPR 0.05 % (50MCG) 16GM EACHNOSTRI SCH (09:41)
[2020-07-14] MEDS: CLOPIDOGREL BISULFATE 75 MG TAB PO SCH (09:42)
[2020-07-14] MEDS: PANTOPRAZOLE 40 MG/10 ML VIAL INJ IV SCH (09:42)
[2020-07-14] MEDS: CELECOXIB 100 MG CAP PO SCH (09:42)
[2020-07-14] MEDS: methylPREDNISolone SOD SUCC 40 MG/ML VL IV SCH (09:42)
[2020-07-14] MEDS: PSEUDOEPHEDRINE HCL 30 MG TAB PO SCH ×2 (09:43→09:53)
[2020-07-14] MEDS: KETOROLAC TROMETH 30 MG/ML 1ML VIAL IV PRN (09:43)
[2020-07-14] MEDS: ROSUVASTATIN CALCIUM 10 MG PO SCH (09:45)
[2020-07-14] MEDS: HALOBETASOL PROPIONATE 0.05% TOP SCH (09:45)
[2020-07-14] MEDS: Fluticasone-Salmeterol (Advair Diskus 250/50) IN SCH (09:45)
[2020-07-14 09:49] VITALS: BP 125/78
[2020-07-14] MEDS: metFORMIN HYDROCHLORIDE 500 MG TAB PO SCH (09:52)
[2020-07-14] MEDS ORDERED: ESCITALOPRAM OXALATE 5 MG PO SCH (10:00)
== END 2020-07-14 11:38 | disposition home or self-care (01) | DRG 191 ==
LOC: WEST WING 19:49
PROVIDERS: ADMIT Specialist; ATTEND Specialist
DX: J44.1 Chronic obstructive pulmonary disease with (acute) exacerbation (principal); N39.0 Urinary tract infection, site not specified; M79.7 Fibromyalgia; K22.4 Dyskinesia of esophagus; E11.9 Type 2 diabetes mellitus without complications; E66.09 Other obesity due to excess calories; L30.9 Dermatitis, unspecified; E86.0 Dehydration; Z20.822 Contact with and (suspected) exposure to COVID-19; I27.81 Cor pulmonale (chronic); I11.0 Hypertensive heart disease with heart failure; E78.00 Pure hypercholesterolemia, unspecified; F31.9 Bipolar disorder, unspecified; I25.10 Atherosclerotic heart disease of native coronary artery without angina pectoris; I25.2 Old myocardial infarction; Z79.02 Long term (current) use of antithrombotics/antiplatelets; Z79.84 Long term (current) use of oral hypoglycemic drugs; Z79.82 Long term (current) use of aspirin; Z79.899 Other long term (current) drug therapy; Z82.49 Family history of ischemic heart disease and other diseases of the circulatory system; Z83.3 Family history of diabetes mellitus; Z86.73 Personal history of transient ischemic attack (TIA), and cerebral infarction without residual deficits; Z87.891 Personal history of nicotine dependence; Z91.11 Patient's noncompliance with dietary regimen; Z91.14 Patient's other noncompliance with medication regimen; Z68.37 Body mass index [BMI] 37.0-37.9, adult
CPT/HCPCS: 36415; 71045; 80053; 81001; 82962; 83735; 85025; 85610; 85730; 87081; 87086; 87426; 94640; A4605; C9113; G0378; J0696; J1815; J1885

== ENCOUNTER 2020-08-27 06:15 | Inpatient (IN) | payer MEDICARE, MEDICAID ==
[~2020-08-27] VITALS: Ht 165.1 cm; Wt 104.5 kg
[~2020-08-27 06:15] MED LIST changes: -ALBU1.257 IN; -CALC-317 PO; +CEFA-122 PO; -CHOL500023 PO; -CLON0.5T3 PO; +ESCI5TAB PO; +FLUT110A INH; -FLUT250M2 INH; +FLUT50SP EACHNOSTRI; -HALO0.053 EX; +LORA-483 PO; +METO-289 PO; -METO25TA93 PO; -MORP1CAP31 PO; +MULT1TAB69 PO; -NIFE1TAB30 PO; -OXYC-102 PO; +OXYC20TA69 PO; +QUET25TA46 PO
[2020-08-27] MEDS ORDERED: ACETAMINOPHEN 500 MG TAB PO PRN ×2 (07:15→08:15)
[2020-08-27] MEDS ORDERED: ALBUTEROL SULF 2.5 MG/0.5ML(0.5%) NEB SOLN NEB PRN (07:15)
[2020-08-27] MEDS ORDERED: HYDROmorphone HCL 2 MG/ML VL IV PRN ×2 (07:15)
[2020-08-27] MEDS ORDERED: MORPHINE SULF INJ 2 MG/ML SYRINGE 1ML IV PRN (07:15)
[2020-08-27] MEDS ORDERED: NITROGLYCERIN 0.4 MG SL TAB SL PRN (07:15)
[2020-08-27] MEDS ORDERED: SOD CHL 0.45% 1,000 ML IV SCH ×2 (07:45→08:15)
[2020-08-27 08:59] LABS: Albumin 3.3 g/dL (3.4-5.0); BUN/Creatinine Ratio 30.5; Calcium 8.4 mg/dL (8.5-10.1); Potassium 3.7 mmol/L (3.5-5.1)
[2020-08-27 09:00] VITALS: BP 144/87
[2020-08-27] MEDS: cefTRIAXone 1GM/50ML D5W 50 ML IV SCH ×2 (09:00→11:15)
[2020-08-27 09:04] LABS: Bilirubin, Total 0.2 mg/dL (0.2-1.0); Total Protein 6.8 g/dL (6.4-8.2)
[2020-08-27 09:06] LABS: INR 0.97 (0.9-1.15); Partial Thromboplastin Time 26.4 sec (23.0-31.2)
[2020-08-27] MEDS: metFORMIN HYDROCHLORIDE 850 MG TAB PO SCH ×2 (09:11→17:31)
[2020-08-27] MEDS ORDERED: DEXTROSE (50%) 50ML SYRG IV PRN (09:30)
[2020-08-27] MEDS: VALSARTAN 80 MG TAB PO SCH (09:48)
[2020-08-27] MEDS: METOPROLOL SUCCINATE XL 50 MG TAB PO SCH ×2 (09:48→21:55)
[2020-08-27] MEDS: CLOPIDOGREL BISULFATE 75 MG TAB PO SCH (09:48)
[2020-08-27] MEDS: ENOXAPARIN SOD 40 MG/0.4 ML SYRINGE SC SCH (09:49)
[2020-08-27] MEDS: OXYCODONE W/ ACETAMINOPHEN 5/325MG TABLET PO PRN (09:49)
[2020-08-27] MEDS: CRESTOR 10MG PO SCH (09:51)
[2020-08-27] MEDS ORDERED: ZOCOR 20MG PO SCH (10:00)
[2020-08-27] MEDS: ALBUTEROL SULF 2.5 MG/0.5ML(0.5%) NEB SOLN NEB SCH ×4 (10:11→23:06)
[2020-08-27] MEDS: HYDROmorphone HCL 2 MG/ML VL IV PRN ×3 (11:15→23:36)
[2020-08-27] MEDS: ACCU-CHEK COMFORT CURVE STRIP VI SCH ×3 (11:23→21:55)
[2020-08-27] MEDS: INSULIN LISPRO (HUMAN) 100 UNITS/ML ML SC SCH ×2 (11:30→17:32)
[2020-08-27] MEDS ORDERED: INSULIN LISPRO (HUMAN) 100 UNITS/ML ML SC SCH ×3 (11:30→22:00)
[2020-08-27] MEDS: levoFLOXacin 500MG 100 ML IV SCH (12:24)
[2020-08-27 13:00] VITALS: BP 149/72
[2020-08-27] MEDS: methylPREDNISolone SOD SUCC 40 MG/ML VL IV SCH ×2 (13:58→21:54)
[2020-08-27] MEDS ORDERED: cloNIDine HCL 0.1 MG TAB PO ONE (14:15)
[2020-08-27 14:55] LABS: Urine Bacteria FEW /hpf (None Seen); Urine Blood TRACE /uL (Negative); Urine Mucus FEW (None Seen); Urine Specific Gravity 1.013 (1.001-1.035); Urine WBC 18 /hpf (0 - 5)
[2020-08-27 15:38] VITALS: BP 128/77
[2020-08-27 16:52] VITALS: BP 143/74
[2020-08-27] MEDS: SENNA 8.6 MG TAB PO SCH (21:54)
[2020-08-27 22:00] VITALS: BP 157/82
[2020-08-27 23:00] VITALS: BP 127/67
[2020-08-28 00:57] LABS: Basophils # (auto) 0 10 ^3/uL (0-0.2); Eosinophils # (auto) 0 10 ^3/uL (0-0.8); Eosinophils % (auto) 0.1 % (0.0-7.0); Monocytes # (auto) 0.2 10 ^3/uL (0-1.3); Red Cell Distribution Width 15.5 % (11.8-14.3); White Blood Cell 8.5 10^3/uL (4.4-10.8)
[2020-08-28 00:59] LABS: Basophils % (auto) 0.4 % (0.0-2.0); Hematocrit 38.3 % (36.0-46.0); Hemoglobin 12.4 g/dL (12.2-16.2); Lymphocytes # (auto) 1.1 10 ^3/uL (0.4-5.4); Lymphocytes % (auto) 12.6 % (10.0-50.0); Mean Corpuscular Hgb Conc. 32.3 g/dL (32.0-36.0); Mean Corpuscular Volume 80.5 fL (80.0-100.0); Monocytes % (auto) 2.5 % (0.0-12.0); Neutrophils # (auto) 7.1 10 ^3/uL (1.6-8.6); Neutrophils % (auto) 84.4 % (37.0-80.0); Nucleated Red Blood Cells % 0.1 %; Platelet Count (auto) 216 10^3/uL (140-450); Red Blood Cells 4.76 10^6/uL (4.0-5.20)
[2020-08-28] MEDS: ALBUTEROL SULF 2.5 MG/0.5ML(0.5%) NEB SOLN NEB SCH ×7 (01:52→22:00)
[2020-08-28] MEDS: SOD CHL 0.45% 1,000 ML IV SCH (02:32)
[2020-08-28] MEDS: HYDROmorphone HCL 2 MG/ML VL IV PRN ×3 (03:28→17:24)
[2020-08-28 05:00] VITALS: BP 142/70
[2020-08-28] MEDS: methylPREDNISolone SOD SUCC 40 MG/ML VL IV SCH ×3 (06:34→21:59)
[2020-08-28] MEDS: ACCU-CHEK COMFORT CURVE STRIP VI SCH ×4 (06:34→22:00)
[2020-08-28] MEDS: INSULIN LISPRO (HUMAN) 100 UNITS/ML ML SC SCH ×4 (06:45→22:00)
[2020-08-28 07:53] LABS: Basophils # (auto) 0 10 ^3/uL (0-0.2); Eosinophils # (auto) 0 10 ^3/uL (0-0.8); Hemoglobin 12.4 g/dL (12.2-16.2); Lymphocytes # (auto) 1.1 10 ^3/uL (0.4-5.4); Lymphocytes % (auto) 11.3 % (10.0-50.0); Mean Corpuscular Hemoglobin 25.8 pg (28.0-32.0); Monocytes # (auto) 0.4 10 ^3/uL (0-1.3); Monocytes % (auto) 4.1 % (0.0-12.0); Nucleated Red Blood Cells % 0.1 %; Red Cell Distribution Width 15.6 % (11.8-14.3)
[2020-08-28 07:54] LABS: Basophils % (auto) 0.5 % (0.0-2.0); Eosinophils % (auto) 0.1 % (0.0-7.0); Hematocrit 38.3 % (36.0-46.0); Mean Corpuscular Hgb Conc. 32.4 g/dL (32.0-36.0); Mean Corpuscular Volume 79.7 fL (80.0-100.0); Neutrophils # (auto) 8.5 10 ^3/uL (1.6-8.6); Platelet Count (auto) 230 10^3/uL (140-450); White Blood Cell 10.1 10^3/uL (4.4-10.8)
[2020-08-28 08:13] LABS: Albumin 3.2 g/dL (3.4-5.0); Calcium 8.8 mg/dL (8.5-10.1); Potassium 4.2 mmol/L (3.5-5.1)
[2020-08-28 08:18] LABS: BUN/Creatinine Ratio 18.1; Bilirubin, Total 0.2 mg/dL (0.2-1.0)
[2020-08-28] MEDS: metFORMIN HYDROCHLORIDE 850 MG TAB PO SCH ×2 (08:19→17:24)
[2020-08-28] MEDS: cefTRIAXone 1GM/50ML D5W 50 ML IV SCH (08:19)
[2020-08-28 09:00] VITALS: BP_SYST 101; BP_SYST 142; BP_DIAS 54; BP_DIAS 61
[2020-08-28] MEDS: OXYCODONE W/ ACETAMINOPHEN 5/325MG TABLET PO PRN (09:04)
[2020-08-28] MEDS: ESCITALOPRAM 5 MG PO SCH (09:44)
[2020-08-28] MEDS: CRESTOR 10MG PO SCH (09:44)
[2020-08-28] MEDS: levoFLOXacin 500MG 100 ML IV SCH (09:44)
[2020-08-28] MEDS: METOPROLOL SUCCINATE XL 50 MG TAB PO SCH ×2 (09:45→22:00)
[2020-08-28] MEDS: CLOPIDOGREL BISULFATE 75 MG TAB PO SCH (09:45)
[2020-08-28] MEDS: amLODIPine BESYLATE 5 MG TAB PO SCH (09:45)
[2020-08-28] MEDS: VALSARTAN 80 MG TAB PO SCH (09:45)
[2020-08-28] MEDS: ENOXAPARIN SOD 40 MG/0.4 ML SYRINGE SC SCH (09:46)
[2020-08-28 13:00] VITALS: BP 161/76
[2020-08-28] MEDS ORDERED: PANTOPRAZOLE 40 MG/10 ML VIAL INJ IV ONE (13:15)
[2020-08-28] MEDS ORDERED: ALUM & MAG HYDROX-SIMETH LIQ(MAALOX) 30 ML PO PRN (13:15)
[2020-08-28 16:56] VITALS: BP 124/62
[2020-08-28 21:58] VITALS: BP 126/65
[2020-08-28] MEDS: SENNA 8.6 MG TAB PO SCH (21:59)
[2020-08-29] MEDS: ALBUTEROL SULF 2.5 MG/0.5ML(0.5%) NEB SOLN NEB SCH ×5 (02:00→22:00)
[2020-08-29] MEDS: HYDROmorphone HCL 2 MG/ML VL IV PRN ×2 (02:07→16:56)
[2020-08-29] MEDS: SOD CHL 0.45% 1,000 ML IV SCH (02:34)
[2020-08-29 05:32] VITALS: BP 141/60
[2020-08-29 06:18] LABS: Basophils # (auto) 0.1 10 ^3/uL (0-0.2); Basophils % (auto) 0.4 % (0.0-2.0); Eosinophils # (auto) 0 10 ^3/uL (0-0.8); Hematocrit 38.2 % (36.0-46.0); Hemoglobin 12.5 g/dL (12.2-16.2); Lymphocytes # (auto) 1.2 10 ^3/uL (0.4-5.4); Lymphocytes % (auto) 9.9 % (10.0-50.0); Mean Corpuscular Hemoglobin 26.1 pg (28.0-32.0); Mean Corpuscular Hgb Conc. 32.8 g/dL (32.0-36.0); Mean Corpuscular Volume 79.4 fL (80.0-100.0); Monocytes # (auto) 0.8 10 ^3/uL (0-1.3); Monocytes % (auto) 6.4 % (0.0-12.0); Neutrophils # (auto) 10.3 10 ^3/uL (1.6-8.6); Neutrophils % (auto) 83.3 % (37.0-80.0); Platelet Count (auto) 235 10^3/uL (140-450); Red Blood Cells 4.81 10^6/uL (4.0-5.20); Red Cell Distribution Width 15.9 % (11.8-14.3); White Blood Cell 12.4 10^3/uL (4.4-10.8)
[2020-08-29] MEDS: methylPREDNISolone SOD SUCC 40 MG/ML VL IV SCH ×3 (06:20→23:00)
[2020-08-29] MEDS: ACCU-CHEK COMFORT CURVE STRIP VI SCH ×5 (06:22→22:45)
[2020-08-29] MEDS: INSULIN LISPRO (HUMAN) 100 UNITS/ML ML SC SCH ×5 (06:22→23:13)
[2020-08-29 06:38] LABS: Albumin 3.1 g/dL (3.4-5.0); Potassium 4.4 mmol/L (3.5-5.1)
[2020-08-29 06:41] LABS: BUN/Creatinine Ratio 22.1; Bilirubin, Total 0.2 mg/dL (0.2-1.0); Total Protein 6.8 g/dL (6.4-8.2)
[2020-08-29] MEDS: cefTRIAXone 1GM/50ML D5W 50 ML IV SCH (08:12)
[2020-08-29] MEDS: metFORMIN HYDROCHLORIDE 850 MG TAB PO SCH ×2 (08:12→17:17)
[2020-08-29 09:00] VITALS: BP 157/72
[2020-08-29] MEDS: levoFLOXacin 500MG 100 ML IV SCH (09:12)
[2020-08-29] MEDS: CRESTOR 10MG PO SCH (09:12)
[2020-08-29] MEDS: ESCITALOPRAM 5 MG PO SCH (09:12)
[2020-08-29] MEDS: amLODIPine BESYLATE 5 MG TAB PO SCH (09:13)
[2020-08-29] MEDS: CLOPIDOGREL BISULFATE 75 MG TAB PO SCH (09:13)
[2020-08-29] MEDS: VALSARTAN 80 MG TAB PO SCH (09:13)
[2020-08-29] MEDS: PANTOPRAZOLE 40 MG TAB PO SCH (09:14)
[2020-08-29] MEDS: METOPROLOL SUCCINATE XL 50 MG TAB PO SCH ×2 (09:14→23:00)
[2020-08-29] MEDS: ENOXAPARIN SOD 40 MG/0.4 ML SYRINGE SC SCH (09:15)
[2020-08-29 12:47] VITALS: BP 149/77
[2020-08-29 16:46] VITALS: BP 143/64
[2020-08-29] MEDS: OXYCODONE W/ ACETAMINOPHEN 5/325MG TABLET PO PRN (20:37)
[2020-08-29 22:00] VITALS: BP 157/80
[2020-08-29] MEDS: SENNA 8.6 MG TAB PO SCH (23:00)
[2020-08-30] VITALS (8 sets, daily range): BP systolic 136–179; BP diastolic 66–92
[2020-08-30] MEDS: HYDROmorphone HCL 2 MG/ML VL IV PRN ×3 (01:03→15:28)
[2020-08-30] MEDS: ALBUTEROL SULF 2.5 MG/0.5ML(0.5%) NEB SOLN NEB SCH ×7 (02:00→22:00)
[2020-08-30] MEDS: SOD CHL 0.45% 1,000 ML IV SCH ×2 (02:30→08:44)
[2020-08-30] MEDS: amLODIPine BESYLATE 5 MG TAB PO SCH (04:44)
[2020-08-30] MEDS: ACCU-CHEK COMFORT CURVE STRIP VI SCH ×4 (05:57→21:51)
[2020-08-30] MEDS: methylPREDNISolone SOD SUCC 40 MG/ML VL IV SCH ×3 (06:23→21:57)
[2020-08-30] MEDS: INSULIN LISPRO (HUMAN) 100 UNITS/ML ML SC SCH ×4 (06:41→21:55)
[2020-08-30] MEDS: metFORMIN HYDROCHLORIDE 850 MG TAB PO SCH ×2 (08:39→18:05)
[2020-08-30] MEDS: levoFLOXacin 500MG 100 ML IV SCH (08:39)
[2020-08-30] MEDS: cefTRIAXone 1GM/50ML D5W 50 ML IV SCH (08:39)
[2020-08-30] MEDS: ESCITALOPRAM 5 MG PO SCH (08:40)
[2020-08-30] MEDS: CRESTOR 10MG PO SCH (08:40)
[2020-08-30] MEDS: CLOPIDOGREL BISULFATE 75 MG TAB PO SCH (08:41)
[2020-08-30] MEDS: PANTOPRAZOLE 40 MG TAB PO SCH (08:41)
[2020-08-30] MEDS: ENOXAPARIN SOD 40 MG/0.4 ML SYRINGE SC SCH (08:43)
[2020-08-30] MEDS: VALSARTAN 80 MG TAB PO SCH (08:53)
[2020-08-30] MEDS: METOPROLOL SUCCINATE XL 50 MG TAB PO SCH ×2 (08:53→21:59)
[2020-08-30] MEDS ORDERED: CRESTOR 20MG PO SCH (18:00)
[2020-08-30] MEDS: OXYCODONE W/ ACETAMINOPHEN 5/325MG TABLET PO PRN (21:14)
[2020-08-30] MEDS: SENNA 8.6 MG TAB PO SCH (21:59)
[2020-08-31] MEDS: ALBUTEROL SULF 2.5 MG/0.5ML(0.5%) NEB SOLN NEB SCH ×4 (02:00→14:00)
[2020-08-31 05:00] VITALS: BP 170/98
[2020-08-31 05:35] VITALS: BP 139/71
[2020-08-31] MEDS: methylPREDNISolone SOD SUCC 40 MG/ML VL IV SCH ×2 (06:29→14:00)
[2020-08-31] MEDS: ACCU-CHEK COMFORT CURVE STRIP VI SCH ×2 (06:34→11:54)
[2020-08-31] MEDS: INSULIN LISPRO (HUMAN) 100 UNITS/ML ML SC SCH ×2 (06:48→11:30)
[2020-08-31] MEDS: metFORMIN HYDROCHLORIDE 850 MG TAB PO SCH (08:26)
[2020-08-31] MEDS: cefTRIAXone 1GM/50ML D5W 50 ML IV SCH (08:30)
[2020-08-31 09:00] VITALS: BP 137/69
[2020-08-31] MEDS: levoFLOXacin 500MG 100 ML IV SCH (10:14)
[2020-08-31] MEDS: ESCITALOPRAM 5 MG PO SCH (10:17)
[2020-08-31] MEDS: VALSARTAN 80 MG TAB PO SCH (10:18)
[2020-08-31] MEDS: CLOPIDOGREL BISULFATE 75 MG TAB PO SCH (10:21)
[2020-08-31] MEDS: PANTOPRAZOLE 40 MG TAB PO SCH (10:22)
[2020-08-31] MEDS: METOPROLOL SUCCINATE XL 50 MG TAB PO SCH (10:23)
[2020-08-31] MEDS: ENOXAPARIN SOD 40 MG/0.4 ML SYRINGE SC SCH (10:24)
[2020-08-31] MEDS: amLODIPine BESYLATE 5 MG TAB PO SCH (10:37)
[2020-08-31 13:00] VITALS: BP 141/74
== END 2020-08-31 16:18 | disposition home or self-care (01) | DRG 190 ==
LOC: TELE-WESTW 06:15
PROVIDERS: ADMIT Specialist; ATTEND Specialist
DX: J44.1 Chronic obstructive pulmonary disease with (acute) exacerbation (principal); I21.4 Non-ST elevation (NSTEMI) myocardial infarction; J45.901 Unspecified asthma with (acute) exacerbation; N39.0 Urinary tract infection, site not specified; M79.7 Fibromyalgia; Z20.822 Contact with and (suspected) exposure to COVID-19; E11.9 Type 2 diabetes mellitus without complications; E66.09 Other obesity due to excess calories; L30.9 Dermatitis, unspecified; E86.1 Hypovolemia; E86.0 Dehydration; I25.10 Atherosclerotic heart disease of native coronary artery without angina pectoris; E78.00 Pure hypercholesterolemia, unspecified; M19.90 Unspecified osteoarthritis, unspecified site; Z86.73 Personal history of transient ischemic attack (TIA), and cerebral infarction without residual deficits; Z79.84 Long term (current) use of oral hypoglycemic drugs; Z87.891 Personal history of nicotine dependence; Z88.8 Allergy status to other drugs, medicaments and biological substances; Z79.899 Other long term (current) drug therapy; Z68.36 Body mass index [BMI] 36.0-36.9, adult
CPT/HCPCS: 36415; 71046; 73562; 80053; 81001; 82962; 83880; 84443; 84484; 85025; 85610; 85730; 87426; 93306; 94640; C9113; G0378; J0696; J1815; J1956

== ENCOUNTER 2020-10-14 17:40 | Inpatient (IN) | payer MEDICARE, MEDICAID ==
[~2020-10-14] VITALS: Ht 165.1 cm; Wt 103.0 kg
[2020-10-14 22:00] VITALS: BP 130/65
[2020-10-14] MEDS ORDERED: ASPirin-EC 81 mg tab PO ONE (22:15)
[2020-10-14] MEDS ORDERED: cefTRIAXone 1GM/50ML D5W 50 ML IV ONE (22:15)
[2020-10-14] MEDS ORDERED: MORPHINE SULF INJ 2 MG/ML SYRINGE 1ML IV PRN ×2 (22:15)
[2020-10-14] MEDS ORDERED: NITROGLYCERIN 0.4 MG SL TAB SL PRN ×3 (22:15)
[2020-10-14] MEDS ORDERED: CLOPIDOGREL BISULFATE 75 MG TAB PO ONE (22:15)
[2020-10-14 22:36] VITALS: BP 130/65
[2020-10-14 22:41] LABS: Basophils # (auto) 0.1 10 ^3/uL (0-0.2); Eosinophils # (auto) 0.7 10 ^3/uL (0-0.8); Hemoglobin 11.9 g/dL (12.2-16.2); Monocytes # (auto) 0.8 10 ^3/uL (0-1.3); Neutrophils # (auto) 2.5 10 ^3/uL (1.6-8.6); Neutrophils % (auto) 38.5 % (37.0-80.0)
[2020-10-14 22:42] LABS: Basophils % (auto) 1.3 % (0.0-2.0); Lymphocytes # (auto) 2.4 10 ^3/uL (0.4-5.4); Lymphocytes % (auto) 37.3 % (10.0-50.0); Mean Corpuscular Hemoglobin 25.3 pg (28.0-32.0); Mean Corpuscular Hgb Conc. 32.2 g/dL (32.0-36.0); Mean Corpuscular Volume 78.7 fL (80.0-100.0); Monocytes % (auto) 12.9 % (0.0-12.0); Nucleated Red Blood Cells % 0.1 %; Red Cell Distribution Width 14.9 % (11.8-14.3); White Blood Cell 6.5 10^3/uL (4.4-10.8)
[2020-10-14 22:54] LABS: INR 1.04 (0.9-1.15); Partial Thromboplastin Time 28.8 sec (23.0-31.2)
[2020-10-14 22:58] LABS: Albumin 3.3 g/dL (3.4-5.0); BUN/Creatinine Ratio 21.7; Calcium 8.3 mg/dL (8.5-10.1); Potassium 3.4 mmol/L (3.5-5.1)
[2020-10-14 23:00] VITALS: BP 130/65
[2020-10-14 23:03] LABS: Bilirubin, Total 0.2 mg/dL (0.2-1.0); Total Protein 6.6 g/dL (6.4-8.2)
[2020-10-14] MEDS: MORPHINE SULF INJ 2 MG/ML SYRINGE 1ML IV PRN (23:03)
[2020-10-14] MEDS: SOD CHL 0.45% 1,000 ML IV SCH (23:03)
[2020-10-14] MEDS ORDERED: ONDANSETRON HCL 4 MG/2 ML VIAL IV PRN (23:45)
[2020-10-15] MEDS ORDERED: POTASSIUM CHL 20MEQ/100ML 100 ML IV ONE ×2 (02:15→08:30)
[2020-10-15] MEDS: KETOROLAC TROMETH 30 MG/ML 1ML VIAL IV PRN ×3 (02:55→17:17)
[2020-10-15 05:30] VITALS: BP 148/82
[2020-10-15 05:33] LABS: Urine Bacteria FEW /hpf (None Seen); Urine Blood 1+ /uL (Negative); Urine Hyaline Cast MOD /lpf (0 - 2); Urine Mucus MODERATE (None Seen); Urine Specific Gravity 1.027 (1.001-1.035); Urine WBC 693 /hpf (0 - 5); Urine WBC Clumps PRESENT /hpf (None Seen)
[2020-10-15] MEDS: SODIUM CHLOR 0.9% PF (SALINE LOCK) 10ML VIAL/SYR IV SCH ×3 (05:59→21:58)
[2020-10-15] MEDS: methylPREDNISolone SOD SUCC 40 MG/ML VL IV SCH ×3 (05:59→21:58)
[2020-10-15 08:10] LABS: Basophils # (auto) 0 10 ^3/uL (0-0.2); Lymphocytes # (auto) 1.6 10 ^3/uL (0.4-5.4); Monocytes # (auto) 0.5 10 ^3/uL (0-1.3); Neutrophils # (auto) 2.9 10 ^3/uL (1.6-8.6); Nucleated Red Blood Cells % 0.2 %; Red Cell Distribution Width 14.9 % (11.8-14.3); White Blood Cell 5.6 10^3/uL (4.4-10.8)
[2020-10-15 08:12] LABS: Basophils % (auto) 0.9 % (0.0-2.0); Eosinophils # (auto) 0.6 10 ^3/uL (0-0.8); Eosinophils % (auto) 9.9 % (0.0-7.0); Hematocrit 36.9 % (36.0-46.0); Hemoglobin 11.9 g/dL (12.2-16.2); Lymphocytes % (auto) 29.1 % (10.0-50.0); Mean Corpuscular Hemoglobin 25.5 pg (28.0-32.0); Mean Corpuscular Hgb Conc. 32.2 g/dL (32.0-36.0); Mean Corpuscular Volume 79.2 fL (80.0-100.0); Monocytes % (auto) 9.4 % (0.0-12.0); Neutrophils % (auto) 50.7 % (37.0-80.0); Red Blood Cells 4.65 10^6/uL (4.0-5.20)
[2020-10-15 08:28] LABS: Potassium 3.7 mmol/L (3.5-5.1)
[2020-10-15 08:38] LABS: BUN/Creatinine Ratio 35.3; Bilirubin, Total 0.2 mg/dL (0.2-1.0); Calcium 8.2 mg/dL (8.5-10.1); Total Protein 6.5 g/dL (6.4-8.2)
[2020-10-15 08:59] VITALS: BP 160/80
[2020-10-15] MEDS: cefTRIAXone 1GM/50ML D5W 50 ML IV SCH (09:32)
[2020-10-15] MEDS: ASPirin-EC 81 mg tab PO SCH (09:33)
[2020-10-15] MEDS: VALSARTAN 80 MG TAB PO SCH (09:33)
[2020-10-15] MEDS: CLOPIDOGREL BISULFATE 75 MG TAB PO SCH (09:33)
[2020-10-15] MEDS: METOPROLOL SUCCINATE XL 50 MG TAB PO SCH (09:34)
[2020-10-15] MEDS: PANTOPRAZOLE 40 MG TAB PO SCH (09:34)
[2020-10-15] MEDS: CITALOPRAM HYDROBR 20 MG TAB PO SCH (09:46)
[2020-10-15] MEDS ORDERED: PATIENTS OWN MEDICATION PO SCH (10:00)
[2020-10-15] MEDS: ABILIFY 10 MG PO SCH (10:00)
[2020-10-15] MEDS: BUDESONIDE (INHALATION) 0.5 MG/2 ML NEB NEB SCH ×2 (12:38→22:11)
[2020-10-15 13:00] VITALS: BP 148/88
[2020-10-15] MEDS ORDERED: oxyCODONE HCL 5MG TAB PO SCH (13:44)
[2020-10-15] MEDS ORDERED: POTASSIUM CHL 20 Meq TABLET PO ONE ×2 (13:45→16:30)
[2020-10-15] MEDS ORDERED: ACETAMINOPHEN 500 MG TAB PO PRN ×3 (13:45→16:45)
[2020-10-15 17:00] VITALS: BP 160/75
[2020-10-15] MEDS: SOD CHL 0.45% 1,000 ML IV SCH (17:18)
[2020-10-15 22:00] VITALS: BP 159/72
[2020-10-15] MEDS: ALBUTEROL SULF 2.5 MG/0.5ML(0.5%) NEB SOLN NEB PRN (22:11)
[2020-10-15 22:48] VITALS: BP 151/76
[2020-10-15] MEDS ORDERED: HCTZ 25 MG TAB PO ONE (23:15)
[2020-10-15] MEDS ORDERED: cloNIDine HCL 0.1 MG TAB PO ONE (23:15)
[2020-10-16] MEDS: MORPHINE SULF INJ 2 MG/ML SYRINGE 1ML IV PRN (00:20)
[2020-10-16 04:32] VITALS: BP 152/78
[2020-10-16] MEDS: SODIUM CHLOR 0.9% PF (SALINE LOCK) 10ML VIAL/SYR IV SCH ×3 (05:43→20:20)
[2020-10-16] MEDS: methylPREDNISolone SOD SUCC 40 MG/ML VL IV SCH ×2 (05:43→14:03)
[2020-10-16] MEDS: BUDESONIDE (INHALATION) 0.5 MG/2 ML NEB NEB SCH ×3 (05:59→18:19)
[2020-10-16 08:30] VITALS: BP 151/81
[2020-10-16] MEDS: cefTRIAXone 1GM/50ML D5W 50 ML IV SCH (09:55)
[2020-10-16] MEDS: ABILIFY 10 MG PO SCH (09:56)
[2020-10-16] MEDS: VALSARTAN 80 MG TAB PO SCH (09:56)
[2020-10-16] MEDS: cloNIDine HCL 0.1 MG TAB PO SCH ×2 (09:56→21:56)
[2020-10-16] MEDS: CITALOPRAM HYDROBR 20 MG TAB PO SCH (09:56)
[2020-10-16] MEDS: HCTZ 25 MG TAB PO SCH (09:57)
[2020-10-16] MEDS: METOPROLOL SUCCINATE XL 50 MG TAB PO SCH (09:57)
[2020-10-16] MEDS: ASPirin-EC 81 mg tab PO SCH (09:57)
[2020-10-16] MEDS: CLOPIDOGREL BISULFATE 75 MG TAB PO SCH (09:57)
[2020-10-16] MEDS: PANTOPRAZOLE 40 MG TAB PO SCH (09:57)
[2020-10-16] MEDS: ALBUTEROL SULF 2.5 MG/0.5ML(0.5%) NEB SOLN NEB PRN ×2 (12:49→18:19)
[2020-10-16 12:52] VITALS: BP 158/76
[2020-10-16] MEDS: SOD CHL 0.45% 1,000 ML IV SCH (14:04)
[2020-10-16] MEDS: KETOROLAC TROMETH 30 MG/ML 1ML VIAL IV PRN (16:33)
[2020-10-16 17:28] VITALS: BP 152/75
[2020-10-16] MEDS ORDERED: ENOXAPARIN SOD 40 MG/0.4 ML SYRINGE SC ONE (19:30)
[2020-10-16] MEDS ORDERED: methylPREDNISolone SOD SUCC 40 MG/ML VL IV ONE (20:00)
[2020-10-16] MEDS ORDERED: MORPHINE SULFATE 4 MG/ML SYR/VIAL IV ONE (20:00)
[2020-10-16] MEDS ORDERED: MORPHINE SULFATE 4 MG/ML SYR/VIAL IV PRN (20:15)
[2020-10-16 22:00] VITALS: BP 144/76
[2020-10-17 05:00] VITALS: BP 159/89
[2020-10-17] MEDS: SODIUM CHLOR 0.9% PF (SALINE LOCK) 10ML VIAL/SYR IV SCH ×3 (05:40→21:05)
[2020-10-17] MEDS: BUDESONIDE (INHALATION) 0.5 MG/2 ML NEB NEB SCH ×2 (06:37→22:00)
[2020-10-17] MEDS: ALBUTEROL SULF 2.5 MG/0.5ML(0.5%) NEB SOLN NEB PRN (06:37)
[2020-10-17 06:44] LABS: Basophils # (auto) 0 10 ^3/uL (0-0.2); Basophils % (auto) 0.2 % (0.0-2.0); Eosinophils # (auto) 0 10 ^3/uL (0-0.8); Hemoglobin 12.4 g/dL (12.2-16.2); Lymphocytes # (auto) 1.3 10 ^3/uL (0.4-5.4)
[2020-10-17 06:47] LABS: Hematocrit 37.1 % (36.0-46.0); Mean Corpuscular Hgb Conc. 33.4 g/dL (32.0-36.0); Mean Corpuscular Volume 77.7 fL (80.0-100.0); Monocytes # (auto) 0.8 10 ^3/uL (0-1.3); Monocytes % (auto) 6.5 % (0.0-12.0); Neutrophils % (auto) 82.3 % (37.0-80.0); Red Blood Cells 4.78 10^6/uL (4.0-5.20); Red Cell Distribution Width 14.6 % (11.8-14.3); White Blood Cell 12.2 10^3/uL (4.4-10.8)
[2020-10-17 06:59] LABS: Potassium 4.1 mmol/L (3.5-5.1)
[2020-10-17 07:19] LABS: Albumin 3.1 g/dL (3.4-5.0); Bilirubin, Total 0.2 mg/dL (0.2-1.0); CRP High Sensitivity 0.05 mg/dL (< 0.3); Calcium 8.7 mg/dL (8.5-10.1); Total Protein 6.8 g/dL (6.4-8.2)
[2020-10-17 09:00] VITALS: BP 152/72
[2020-10-17] MEDS: ABILIFY 10 MG PO SCH (10:00)
[2020-10-17] MEDS: METOPROLOL SUCCINATE XL 50 MG TAB PO SCH (10:00)
[2020-10-17] MEDS: cefTRIAXone 1GM/50ML D5W 50 ML IV SCH (10:07)
[2020-10-17] MEDS: methylPREDNISolone SOD SUCC 40 MG/ML VL IV SCH ×2 (10:07→21:06)
[2020-10-17] MEDS: cloNIDine HCL 0.1 MG TAB PO SCH ×2 (10:08→21:14)
[2020-10-17] MEDS: CITALOPRAM HYDROBR 20 MG TAB PO SCH (10:08)
[2020-10-17] MEDS: CLOPIDOGREL BISULFATE 75 MG TAB PO SCH (10:11)
[2020-10-17] MEDS: PANTOPRAZOLE 40 MG TAB PO SCH (10:11)
[2020-10-17] MEDS: ASPirin-EC 81 mg tab PO SCH (10:11)
[2020-10-17] MEDS: VALSARTAN 80 MG TAB PO SCH (10:11)
[2020-10-17] MEDS: SOD CHL 0.45% 1,000 ML IV SCH (10:13)
[2020-10-17] MEDS: ENOXAPARIN SOD 40 MG/0.4 ML SYRINGE SC SCH (10:13)
[2020-10-17] MEDS: HCTZ 25 MG TAB PO SCH (10:27)
[2020-10-17 13:00] VITALS: BP 147/72
[2020-10-17] MEDS: oxyCODONE HCL 5MG TAB PO PRN ×2 (15:32→23:28)
[2020-10-17 17:00] VITALS: BP 167/83
[2020-10-17] MEDS ORDERED: cloNIDine HCL 0.1 MG TAB PO PRN (17:30)
[2020-10-17] MEDS: cloNIDine HCL 0.1 MG TAB PO PRN (18:57)
[2020-10-17 22:00] VITALS: BP 128/68
[2020-10-18] MEDS: ALBUTEROL SULF 2.5 MG/0.5ML(0.5%) NEB SOLN NEB PRN ×3 (00:56→19:32)
[2020-10-18 05:00] VITALS: BP 152/74
[2020-10-18 05:33] VITALS: BP 161/70
[2020-10-18 06:03] LABS: Basophils # (auto) 0 10 ^3/uL (0-0.2); Basophils % (auto) 0.1 % (0.0-2.0); Eosinophils # (auto) 0 10 ^3/uL (0-0.8); Monocytes # (auto) 0.6 10 ^3/uL (0-1.3)
[2020-10-18 06:06] LABS: Hematocrit 38.9 % (36.0-46.0); Hemoglobin 12.7 g/dL (12.2-16.2); Lymphocytes # (auto) 1.6 10 ^3/uL (0.4-5.4); Lymphocytes % (auto) 15.7 % (10.0-50.0); Mean Corpuscular Hemoglobin 25.7 pg (28.0-32.0); Mean Corpuscular Hgb Conc. 32.6 g/dL (32.0-36.0); Mean Corpuscular Volume 78.6 fL (80.0-100.0); Monocytes % (auto) 6.2 % (0.0-12.0); Neutrophils # (auto) 7.8 10 ^3/uL (1.6-8.6); Nucleated Red Blood Cells % 0.1 %; Red Blood Cells 4.95 10^6/uL (4.0-5.20); Red Cell Distribution Width 14.8 % (11.8-14.3)
[2020-10-18] MEDS: SODIUM CHLOR 0.9% PF (SALINE LOCK) 10ML VIAL/SYR IV SCH ×3 (06:13→22:48)
[2020-10-18] MEDS: SOD CHL 0.45% 1,000 ML IV SCH (06:14)
[2020-10-18 06:18] LABS: Albumin 3.2 g/dL (3.4-5.0); Calcium 8.7 mg/dL (8.5-10.1); Potassium 4.1 mmol/L (3.5-5.1)
[2020-10-18 06:23] LABS: BUN/Creatinine Ratio 27.4; Bilirubin, Total 0.3 mg/dL (0.2-1.0); Total Protein 7.1 g/dL (6.4-8.2)
[2020-10-18] MEDS: methylPREDNISolone SOD SUCC 40 MG/ML VL IV SCH ×2 (08:58→21:51)
[2020-10-18 09:00] VITALS: BP 134/82
[2020-10-18] MEDS: PANTOPRAZOLE 40 MG TAB PO SCH (09:00)
[2020-10-18] MEDS: CITALOPRAM HYDROBR 20 MG TAB PO SCH (09:00)
[2020-10-18] MEDS: VALSARTAN 80 MG TAB PO SCH (09:00)
[2020-10-18] MEDS: METOPROLOL SUCCINATE XL 50 MG TAB PO SCH ×2 (09:00→09:05)
[2020-10-18] MEDS: CLOPIDOGREL BISULFATE 75 MG TAB PO SCH (09:01)
[2020-10-18] MEDS: ASPirin-EC 81 mg tab PO SCH (09:01)
[2020-10-18] MEDS: HCTZ 25 MG TAB PO SCH (09:01)
[2020-10-18] MEDS: ABILIFY 10 MG PO SCH (09:02)
[2020-10-18] MEDS: cloNIDine HCL 0.1 MG TAB PO SCH ×2 (09:02→11:44)
[2020-10-18] MEDS: cefTRIAXone 1GM/50ML D5W 50 ML IV SCH (09:02)
[2020-10-18] MEDS: ENOXAPARIN SOD 40 MG/0.4 ML SYRINGE SC SCH (10:00)
[2020-10-18] MEDS: BUDESONIDE (INHALATION) 0.5 MG/2 ML NEB NEB SCH ×2 (10:39→19:32)
[2020-10-18] MEDS: oxyCODONE HCL 5MG TAB PO PRN ×2 (11:30→21:52)
[2020-10-18 12:44] VITALS: BP 113/53
[2020-10-18 16:45] VITALS: BP 161/80
[2020-10-18] MEDS: cloNIDine HCL 0.1 MG TAB PO PRN (17:55)
[2020-10-18 22:00] VITALS: BP 165/83
[2020-10-19 05:00] VITALS: BP 138/79
[2020-10-19] MEDS: SODIUM CHLOR 0.9% PF (SALINE LOCK) 10ML VIAL/SYR IV SCH (05:18)
[2020-10-19] MEDS: SOD CHL 0.45% 1,000 ML IV SCH (05:18)
[2020-10-19] MEDS: cefTRIAXone 1GM/50ML D5W 50 ML IV SCH (08:58)
[2020-10-19] MEDS: oxyCODONE HCL 5MG TAB PO PRN (08:58)
[2020-10-19] MEDS: ABILIFY 10 MG PO SCH (08:59)
[2020-10-19] MEDS: methylPREDNISolone SOD SUCC 40 MG/ML VL IV SCH (08:59)
[2020-10-19 09:00] VITALS: BP 157/92
[2020-10-19] MEDS: CITALOPRAM HYDROBR 20 MG TAB PO SCH (09:00)
[2020-10-19] MEDS: cloNIDine HCL 0.1 MG TAB PO SCH (09:00)
[2020-10-19] MEDS: HCTZ 25 MG TAB PO SCH (09:01)
[2020-10-19] MEDS: PANTOPRAZOLE 40 MG TAB PO SCH (09:01)
[2020-10-19] MEDS: METOPROLOL SUCCINATE XL 50 MG TAB PO SCH (09:01)
[2020-10-19] MEDS: CLOPIDOGREL BISULFATE 75 MG TAB PO SCH (09:01)
[2020-10-19] MEDS: ASPirin-EC 81 mg tab PO SCH (09:02)
[2020-10-19] MEDS: VALSARTAN 80 MG TAB PO SCH (09:02)
[2020-10-19] MEDS: ENOXAPARIN SOD 40 MG/0.4 ML SYRINGE SC SCH (09:02)
[2020-10-19] MEDS: BUDESONIDE (INHALATION) 0.5 MG/2 ML NEB NEB SCH (09:50)
[2020-10-19 10:19] VITALS: BP 157/92
[2020-10-19 10:21] VITALS: BP 157/92
== END 2020-10-19 11:50 | disposition home or self-care (01) | DRG 190 ==
LOC: EAST 19:53 → TELE-EAST 22:04 → EAST 10-15 09:01 → TELE-EAST 10-16 01:04
PROVIDERS: ADMIT Specialist; ATTEND Specialist
DX: J44.1 Chronic obstructive pulmonary disease with (acute) exacerbation (principal); I21.4 Non-ST elevation (NSTEMI) myocardial infarction; N39.0 Urinary tract infection, site not specified; J45.998 Other asthma; Z20.822 Contact with and (suspected) exposure to COVID-19; E86.1 Hypovolemia; M79.7 Fibromyalgia; E11.9 Type 2 diabetes mellitus without complications; L30.9 Dermatitis, unspecified; E86.0 Dehydration; E66.09 Other obesity due to excess calories; E78.00 Pure hypercholesterolemia, unspecified; F31.9 Bipolar disorder, unspecified; I10 Essential (primary) hypertension; I25.10 Atherosclerotic heart disease of native coronary artery without angina pectoris; I65.22 Occlusion and stenosis of left carotid artery; K21.9 Gastro-esophageal reflux disease without esophagitis; M19.90 Unspecified osteoarthritis, unspecified site; I25.2 Old myocardial infarction; Z86.73 Personal history of transient ischemic attack (TIA), and cerebral infarction without residual deficits; Z87.891 Personal history of nicotine dependence; Z68.37 Body mass index [BMI] 37.0-37.9, adult; Z82.49 Family history of ischemic heart disease and other diseases of the circulatory system; Z83.3 Family history of diabetes mellitus; Z80.9 Family history of malignant neoplasm, unspecified; Z88.8 Allergy status to other drugs, medicaments and biological substances; Z79.4 Long term (current) use of insulin
CPT/HCPCS: 36415; 71045; 78582; 80053; 80061; 81001; 83036; 83880; 84484; 85025; 85379; 85610; 85730; 86141; 87070; 87205; 87426; 94640; G0378; J0696; J1885; J3480

== ENCOUNTER 2021-11-20 17:16 | Inpatient (IN) | payer MEDICARE, MEDICAID ==
[~2021-11-20] VITALS: Ht 165.1 cm; Wt 113.8 kg
[~2021-11-20 17:16] MED LIST changes: -CELE200C PO; -FLUT110A INH; -FLUT50SP EACHNOSTRI; -LORA-483 PO; +QUET1TAB11 PO; -QUET25TA46 PO
[2021-11-20 22:26] VITALS: BP 152/86
[2021-11-20] MEDS ORDERED: NITROGLYCERIN 0.4 MG SL TAB SL PRN (22:30)
[2021-11-20] MEDS ORDERED: MORPHINE SULFATE INJ 2 MG/ml SYRG IV PRN (22:30)
[2021-11-20] MEDS ORDERED: PATIENTS OWN MEDICATION (Hydroxyzine Hcl 25 MG) PO PRN (23:00)
[2021-11-20] MEDS ORDERED: PSEUDOEPHEDRINE HCL 30 MG TAB PO PRN (23:00)
[2021-11-20] MEDS ORDERED: OXYCODONE HCL 20 MG PO PRN (23:00)
[2021-11-20] MEDS: SOD CHL 0.45% 1,000 ML IV SCH (23:00)
[2021-11-20] MEDS ORDERED: ALBUTEROL SULF HFA 90MCG INH 200DOSE IN PRN (23:00)
[2021-11-20] MEDS ORDERED: DOCUSATE SOD 100 MG CAP PO PRN (23:00)
[2021-11-20] MEDS ORDERED: ACETAMINOPHEN 500 MG TAB PO PRN (23:15)
[2021-11-20] MEDS ORDERED: ALBUTEROL SULF 2.5 MG/0.5ML(0.5%) NEB SOLN NEB PRN ×2 (23:15)
[2021-11-20 23:37] LABS: Basophils # (auto) 0 10 ^3/uL (0-0.2); Basophils % (auto) 0.7 % (0.0-2.0); Eosinophils # (auto) 0 10 ^3/uL (0-0.8); Hemoglobin 12.3 g/dL (12.2-16.2); Lymphocytes # (auto) 0.8 10 ^3/uL (0.4-5.4); Mean Corpuscular Volume 80.8 fL (80.0-100.0)
[2021-11-20 23:38] LABS: Hematocrit 39.8 % (36.0-46.0); Lymphocytes % (auto) 15.1 % (10.0-50.0); Monocytes # (auto) 0.1 10 ^3/uL (0-1.3); Monocytes % (auto) 1.2 % (0.0-12.0); Neutrophils # (auto) 4.2 10 ^3/uL (1.6-8.6); Red Blood Cells 4.93 10^6/uL (4.0-5.20); Red Cell Distribution Width 15.1 % (11.8-14.3)
[2021-11-20 23:54] LABS: Albumin 3.4 g/dL (3.4-5.0); BUN/Creatinine Ratio 7.8; Calcium 9.1 mg/dL (8.5-10.1); Magnesium 1.9 mg/dL (1.6-2.6); Potassium 4.1 mmol/L (3.5-5.1)
[2021-11-20 23:56] LABS: Bilirubin, Total 0.2 mg/dL (0.2-1.0); Total Protein 7.1 g/dL (6.4-8.2)
[2021-11-21] MEDS: INSULIN LISPRO (HUMAN) 100 UNITS/ML ML SC SCH ×5 (00:45→22:11)
[2021-11-21] MEDS ORDERED: MORPHINE SULFATE INJ 2 MG/ml SYRG IV PRN (02:30)
[2021-11-21] MEDS: MORPHINE SULFATE INJ 2 MG/ml SYRG IV PRN ×3 (03:07→20:07)
[2021-11-21 05:00] VITALS: BP 114/68
[2021-11-21] MEDS ORDERED: methylPREDNISolone SOD SUCC 40 MG/ML VL IV SCH (06:00)
[2021-11-21] MEDS: ACCU-CHEK COMFORT CURVE STRIP VI SCH ×4 (06:32→22:04)
[2021-11-21 06:51] LABS: Basophils # (auto) 0 10 ^3/uL (0-0.2); Eosinophils # (auto) 0 10 ^3/uL (0-0.8); Hemoglobin 11.8 g/dL (12.2-16.2); Lymphocytes # (auto) 1.2 10 ^3/uL (0.4-5.4); Monocytes # (auto) 0.3 10 ^3/uL (0-1.3); White Blood Cell 7.5 10^3/uL (4.4-10.8)
[2021-11-21 06:54] LABS: Basophils % (auto) 0.2 % (0.0-2.0); Hematocrit 37.6 % (36.0-46.0); Lymphocytes % (auto) 15.7 % (10.0-50.0); Mean Corpuscular Hemoglobin 25.1 pg (28.0-32.0); Mean Corpuscular Hgb Conc. 31.4 g/dL (32.0-36.0); Mean Corpuscular Volume 79.9 fL (80.0-100.0); Monocytes % (auto) 3.9 % (0.0-12.0); Neutrophils % (auto) 80.2 % (37.0-80.0); Red Blood Cells 4.71 10^6/uL (4.0-5.20); Red Cell Distribution Width 15.1 % (11.8-14.3)
[2021-11-21 06:57] LABS: Albumin 3.3 g/dL (3.4-5.0); BUN/Creatinine Ratio 14.7; Calcium 8.8 mg/dL (8.5-10.1); Potassium 3.9 mmol/L (3.5-5.1)
[2021-11-21 06:59] LABS: Bilirubin, Total 0.2 mg/dL (0.2-1.0); Total Protein 6.6 g/dL (6.4-8.2)
[2021-11-21] MEDS ORDERED: oxyCODONE HCL 5MG TAB PO PRN (07:15)
[2021-11-21] MEDS ORDERED: hydrOXYzine 25 MG TAB or CAP PO PRN (07:15)
[2021-11-21 09:00] VITALS: BP 149/78
[2021-11-21] MEDS ORDERED: GABA100C9 PO (09:37)
[2021-11-21] MEDS ORDERED: ROSU1TAB14 PO (09:37)
[2021-11-21] MEDS ORDERED: EZET10TA22 PO (09:37)
[2021-11-21] MEDS ORDERED: ESCI-34 PO (09:37)
[2021-11-21] MEDS ORDERED: NIFE1TAB30 PO (09:37)
[2021-11-21] MEDS ORDERED: EMPA1TAB PO (09:37)
[2021-11-21] MEDS ORDERED: PATIENTS OWN MEDICATION (Clopidogrel Bisulfate (Clopidogrel) 75 MG) PO SCH (10:00)
[2021-11-21] MEDS ORDERED: ESCITALOPRAM PO SCH (10:00)
[2021-11-21] MEDS ORDERED: Rosuvastatin 10 MG TAB PO SCH (10:00)
[2021-11-21] MEDS ORDERED: METFORMIN 750 MG PO SCH (10:00)
[2021-11-21] MEDS ORDERED: MUPIROCIN CALCIUM TOP SCH (10:00)
[2021-11-21] MEDS ORDERED: CELE200C PO (10:17)
[2021-11-21] MEDS ORDERED: OXYC30TA50 PO (10:17)
[2021-11-21] MEDS ORDERED: PANT40T PO (10:17)
[2021-11-21] MEDS ORDERED: FLUO0.054 TOP (10:17)
[2021-11-21] MEDS ORDERED: cloNIDine 0.2 mg/24hr 7DAY PATCH TD SCH (11:15)
[2021-11-21] MEDS: oxyCODONE HCL 5MG TAB PO PRN (11:35)
[2021-11-21] MEDS: CLOPIDOGREL BISULFATE 75 MG TAB PO SCH (11:36)
[2021-11-21] MEDS: PANTOPRAZOLE 40 MG TAB PO SCH ×2 (11:36→21:50)
[2021-11-21] MEDS: METOPROLOL SUCCINATE XL 50 MG TAB PO SCH (11:36)
[2021-11-21] MEDS: MULTIPLE VITAMINS W/ MINERALS TAB PO SCH (11:36)
[2021-11-21] MEDS: MUPIROCIN 2% OINT 15gm or 22gm TOP SCH ×2 (11:37→21:50)
[2021-11-21] MEDS: CEFTRIAXONE SODIUM 2 GM in D5W 5% 50 ML IV SCH (11:37)
[2021-11-21] MEDS: NITROGLYCERIN 0.4MG/HR TOPICAL PATCH TD SCH (11:40)
[2021-11-21 13:00] VITALS: BP 136/68
[2021-11-21] MEDS: methylPREDNISolone SOD SUCC 40 MG/ML VL IV SCH ×2 (14:30→21:50)
[2021-11-21 17:18] VITALS: BP 140/74
[2021-11-21] MEDS: SOD CHL 0.45% 1,000 ML IV SCH (17:30)
[2021-11-21] MEDS: METFORMIN 750 MG PO SCH (18:30)
[2021-11-21] MEDS: Rosuvastatin 20 MG TAB PO SCH (21:50)
[2021-11-21 22:00] VITALS: BP 127/53
[2021-11-21] MEDS ORDERED: INSULIN LISPRO (HUMAN) 100 UNITS/ML ML SC SCH (22:00)
[2021-11-22] MEDS: MORPHINE SULFATE INJ 2 MG/ml SYRG IV PRN ×2 (01:09→13:58)
[2021-11-22 05:00] VITALS: BP 125/57
[2021-11-22] MEDS: methylPREDNISolone SOD SUCC 40 MG/ML VL IV SCH ×3 (05:49→22:00)
[2021-11-22] MEDS: METFORMIN 750 MG PO SCH (05:50)
[2021-11-22] MEDS: ACCU-CHEK COMFORT CURVE STRIP VI SCH ×4 (05:50→22:00)
[2021-11-22] MEDS: INSULIN LISPRO (HUMAN) 100 UNITS/ML ML SC SCH ×3 (05:51→17:52)
[2021-11-22 09:00] VITALS: BP 140/64
[2021-11-22] MEDS: CEFTRIAXONE SODIUM 2 GM in D5W 5% 50 ML IV SCH (09:57)
[2021-11-22] MEDS: MULTIPLE VITAMINS W/ MINERALS TAB PO SCH (09:58)
[2021-11-22] MEDS: ESCITALOPRAM 20 MG PO SCH (09:58)
[2021-11-22] MEDS: CLOPIDOGREL BISULFATE 75 MG TAB PO SCH (09:59)
[2021-11-22] MEDS: PANTOPRAZOLE 40 MG TAB PO SCH ×2 (09:59→22:00)
[2021-11-22] MEDS: METOPROLOL SUCCINATE XL 50 MG TAB PO SCH (09:59)
[2021-11-22] MEDS: NITROGLYCERIN 0.4MG/HR TOPICAL PATCH TD SCH (10:00)
[2021-11-22] MEDS: MUPIROCIN 2% OINT 15gm or 22gm TOP SCH ×2 (10:01→22:00)
[2021-11-22] MEDS: oxyCODONE HCL 5MG TAB PO PRN (10:17)
[2021-11-22] MEDS: INSULIN LANTUS (GLARGINE) 1 /0.01ml (100units/ml) SC SCH (12:09)
[2021-11-22 12:31] LABS: Eosinophils # (auto) 0 10 ^3/uL (0-0.8); Hematocrit 40.8 % (36.0-46.0); Hemoglobin 12.5 g/dL (12.2-16.2); Mean Corpuscular Hemoglobin 24.7 pg (28.0-32.0); Monocytes # (auto) 0.6 10 ^3/uL (0-1.3); Red Blood Cells 5.05 10^6/uL (4.0-5.20); Red Cell Distribution Width 15.2 % (11.8-14.3)
[2021-11-22 12:33] LABS: Basophils # (auto) 0 10 ^3/uL (0-0.2); Basophils % (auto) 0.3 % (0.0-2.0); Lymphocytes # (auto) 1.4 10 ^3/uL (0.4-5.4); Lymphocytes % (auto) 10.2 % (10.0-50.0); Mean Corpuscular Hgb Conc. 30.5 g/dL (32.0-36.0); Mean Corpuscular Volume 80.9 fL (80.0-100.0); Monocytes % (auto) 4.3 % (0.0-12.0); Neutrophils # (auto) 11.9 10 ^3/uL (1.6-8.6); Neutrophils % (auto) 85.2 % (37.0-80.0)
[2021-11-22 13:00] VITALS: BP 140/74
[2021-11-22] MEDS: SOD CHL 0.45% 1,000 ML IV SCH (15:52)
[2021-11-22 16:49] VITALS: BP 103/61
[2021-11-22 20:00] VITALS: BP 121/61
[2021-11-22 22:00] VITALS: BP 151/77
[2021-11-22] MEDS: Rosuvastatin 20 MG TAB PO SCH (22:00)
[2021-11-23] VITALS (8 sets, daily range): BP systolic 103–167; BP diastolic 64–86
[2021-11-23] MEDS: MORPHINE SULFATE INJ 2 MG/ml SYRG IV PRN ×2 (01:36→21:32)
[2021-11-23] MEDS: INSULIN LISPRO (HUMAN) 100 UNITS/ML ML SC SCH ×5 (06:39→21:44)
[2021-11-23] MEDS: ACCU-CHEK COMFORT CURVE STRIP VI SCH ×4 (07:09→21:53)
[2021-11-23] MEDS: oxyCODONE HCL 5MG TAB PO PRN ×2 (08:30→16:55)
[2021-11-23] MEDS: CEFTRIAXONE SODIUM 2 GM in D5W 5% 50 ML IV SCH (10:26)
[2021-11-23] MEDS: methylPREDNISolone SOD SUCC 40 MG/ML VL IV SCH ×2 (10:27→21:46)
[2021-11-23] MEDS: MULTIPLE VITAMINS W/ MINERALS TAB PO SCH (10:28)
[2021-11-23] MEDS: ESCITALOPRAM 20 MG PO SCH (10:28)
[2021-11-23] MEDS: CLOPIDOGREL BISULFATE 75 MG TAB PO SCH (10:28)
[2021-11-23] MEDS: MUPIROCIN 2% OINT 15gm or 22gm TOP SCH ×2 (10:29→21:51)
[2021-11-23] MEDS: METOPROLOL SUCCINATE XL 50 MG TAB PO SCH (10:29)
[2021-11-23] MEDS: PANTOPRAZOLE 40 MG TAB PO SCH ×2 (10:29→21:47)
[2021-11-23] MEDS: NITROGLYCERIN 0.4MG/HR TOPICAL PATCH TD SCH (10:30)
[2021-11-23] MEDS: INSULIN LANTUS (GLARGINE) 1 /0.01ml (100units/ml) SC SCH (10:37)
[2021-11-23] MEDS: SOD CHL 0.45% 1,000 ML IV SCH (12:49)
[2021-11-23] MEDS: cloNIDine HCL 0.1 MG TAB PO PRN (16:54)
[2021-11-23] MEDS: Rosuvastatin 20 MG TAB PO SCH (21:46)
[2021-11-24] MEDS ORDERED: SOD CHL 0.45% 1,000 ML IV SCH (00:15)
[2021-11-24 04:51] VITALS: BP 159/81
[2021-11-24 05:13] LABS: Basophils # (auto) 0 10 ^3/uL (0-0.2); Basophils % (auto) 0.2 % (0.0-2.0); Eosinophils # (auto) 0 10 ^3/uL (0-0.8); Lymphocytes # (auto) 1.1 10 ^3/uL (0.4-5.4); Mean Corpuscular Hemoglobin 25.5 pg (28.0-32.0); Monocytes # (auto) 0.4 10 ^3/uL (0-1.3)
[2021-11-24 05:15] LABS: Hematocrit 37.8 % (36.0-46.0); Lymphocytes % (auto) 15.4 % (10.0-50.0); Mean Corpuscular Hgb Conc. 31.9 g/dL (32.0-36.0); Mean Corpuscular Volume 80.1 fL (80.0-100.0); Monocytes % (auto) 5.1 % (0.0-12.0); Neutrophils # (auto) 5.8 10 ^3/uL (1.6-8.6); Neutrophils % (auto) 79.3 % (37.0-80.0); Nucleated Red Blood Cells % 0.1 %; Red Blood Cells 4.72 10^6/uL (4.0-5.20); Red Cell Distribution Width 15.4 % (11.8-14.3); White Blood Cell 7.3 10^3/uL (4.4-10.8)
[2021-11-24 05:28] LABS: Potassium 4.2 mmol/L (3.5-5.1)
[2021-11-24 05:34] LABS: Albumin 2.9 g/dL (3.4-5.0); BUN/Creatinine Ratio 28.4; Bilirubin, Total 0.1 mg/dL (0.2-1.0); Calcium 8.8 mg/dL (8.5-10.1)
[2021-11-24] MEDS: ACCU-CHEK COMFORT CURVE STRIP VI SCH ×2 (06:13→11:30)
[2021-11-24] MEDS: INSULIN LISPRO (HUMAN) 100 UNITS/ML ML SC SCH ×2 (06:18→11:30)
[2021-11-24] MEDS ORDERED: NIFEdipine ER 30 MG TAB PO ONE (08:00)
[2021-11-24 09:02] VITALS: BP 188/91
[2021-11-24] MEDS: CEFTRIAXONE SODIUM 2 GM in D5W 5% 50 ML IV SCH ×2 (10:00→10:07)
[2021-11-24] MEDS: methylPREDNISolone SOD SUCC 40 MG/ML VL IV SCH ×2 (10:00→10:07)
[2021-11-24] MEDS: METOPROLOL SUCCINATE XL 50 MG TAB PO SCH (10:08)
[2021-11-24] MEDS: PANTOPRAZOLE 40 MG TAB PO SCH (10:08)
[2021-11-24] MEDS: MULTIPLE VITAMINS W/ MINERALS TAB PO SCH (10:08)
[2021-11-24] MEDS: CLOPIDOGREL BISULFATE 75 MG TAB PO SCH (10:08)
[2021-11-24] MEDS: ESCITALOPRAM 20 MG PO SCH (10:08)
[2021-11-24] MEDS: NITROGLYCERIN 0.4MG/HR TOPICAL PATCH TD SCH (10:10)
[2021-11-24] MEDS: MUPIROCIN 2% OINT 15gm or 22gm TOP SCH (10:10)
[2021-11-24] MEDS: INSULIN LANTUS (GLARGINE) 1 /0.01ml (100units/ml) SC SCH (10:20)
[2021-11-24] MEDS: cloNIDine HCL 0.1 MG TAB PO PRN (11:47)
[2021-11-24] MEDS: oxyCODONE HCL 5MG TAB PO PRN (11:52)
[2021-11-24 13:00] VITALS: BP 188/86
== END 2021-11-24 15:01 | disposition home or self-care (01) | DRG 191 ==
LOC: UNDOADMIN 21:10 → TELE-CENTR 21:10
PROVIDERS: ADMIT Specialist; ATTEND Specialist
DX: J44.1 Chronic obstructive pulmonary disease with (acute) exacerbation (principal); E66.2 Morbid (severe) obesity with alveolar hypoventilation; E78.00 Pure hypercholesterolemia, unspecified; F31.9 Bipolar disorder, unspecified; I25.10 Atherosclerotic heart disease of native coronary artery without angina pectoris; K21.9 Gastro-esophageal reflux disease without esophagitis; I10 Essential (primary) hypertension; R20.2 Paresthesia of skin; Z20.822 Contact with and (suspected) exposure to COVID-19; I25.2 Old myocardial infarction; Z86.73 Personal history of transient ischemic attack (TIA), and cerebral infarction without residual deficits; Z87.891 Personal history of nicotine dependence; T78.3XXA Angioneurotic edema, initial encounter; Z83.3 Family history of diabetes mellitus; Z68.37 Body mass index [BMI] 37.0-37.9, adult; Z91.14 Patient's other noncompliance with medication regimen; Z88.8 Allergy status to other drugs, medicaments and biological substances
CPT/HCPCS: 36415; 70470; 70492; 71046; 80053; 82962; 83735; 85025; 86160; 87070; 87205; G0378; J0696; J1815; J7060

== ENCOUNTER 2022-01-15 17:06 | Inpatient (IN) | payer MEDICARE, MEDICAID ==
[~2022-01-15] VITALS: Ht 165.1 cm; Wt 113.0 kg
[~2022-01-15 17:06] MED LIST changes: -CEFA-122 PO; +CELE200C PO; +EMPA1TAB PO; +ESCI-34 PO; -ESCI5TAB PO; +EZET10TA22 PO; +GABA100C9 PO; -HYDR-3682 PO; -MULT1TAB69 PO; +NIFE1TAB30 PO; -NITR0.4D5 TD; -OXYC20TA69 PO; +OXYC30TA50 PO; +PANT40T PO; -QUET1TAB11 PO; -ROSU1TAB13 PO; +ROSU1TAB14 PO
[2022-01-15 18:28] LABS: Basophils # (auto) 0 10 ^3/uL (0-0.2); Basophils % (auto) 0.6 % (0.0-2.0); Eosinophils # (auto) 0.2 10 ^3/uL (0-0.8); Eosinophils % (auto) 2.2 % (0.0-7.0); Hematocrit 40.8 % (36.0-46.0); Lymphocytes # (auto) 2.1 10 ^3/uL (0.4-5.4); Mean Corpuscular Hemoglobin 25.8 pg (28.0-32.0); Mean Corpuscular Hgb Conc. 31.9 g/dL (32.0-36.0); Mean Corpuscular Volume 80.9 fL (80.0-100.0); Monocytes # (auto) 0.9 10 ^3/uL (0-1.3); Monocytes % (auto) 11.4 % (0.0-12.0); Neutrophils # (auto) 4.7 10 ^3/uL (1.6-8.6); Neutrophils % (auto) 58.8 % (37.0-80.0); Red Blood Cells 5.04 10^6/uL (4.0-5.20); White Blood Cell 7.9 10^3/uL (4.4-10.8)
[2022-01-15 18:37] LABS: Calcium 8.5 mg/dL (8.5-10.1); Magnesium 1.8 mg/dL (1.6-2.6); Potassium 4.7 mmol/L (3.5-5.1)
[2022-01-15 18:42] LABS: Albumin 3.2 g/dL (3.4-5.0); Bilirubin, Total 0.2 mg/dL (0.2-1.0); Total Protein 6.9 g/dL (6.4-8.2)
[2022-01-15 18:47] LABS: INR 0.92 (0.9-1.15); Partial Thromboplastin Time 30.3 sec (24.6-33.4)
[2022-01-15] MEDS ORDERED: cefTRIAXone SOD 500 MG VL IV ONE (19:30)
[2022-01-15] MEDS ORDERED: methylPREDNISolone SOD SUCC 125 MG/2 ML VL IV ONE (19:30)
[2022-01-15] MEDS ORDERED: MORPHINE SULFATE 4 MG/ML SYR/VIAL IV ONE (19:30)
[2022-01-15] MEDS ORDERED: ALBUTEROL SULF 2.5 MG/0.5ML(0.5%) NEB SOLN NEB ONE (19:30)
[2022-01-15] MEDS ORDERED: IPRATROPIUM BROM 0.5 MG/2.5ML INH SOL NEB ONE (19:30)
[2022-01-15] MEDS ORDERED: cefTRIAXone 1GM/50ML D5W 50 ML IV ONE (19:30)
[2022-01-15] MEDS ORDERED: ASPirin-EC 325mg tab PO ONE (19:45)
[2022-01-15] MEDS ORDERED: NITROGLYCERIN 0.4 MG SL TAB SL ONE (19:45)
[2022-01-15] MEDS ORDERED: MORPHINE SULFATE INJ 2 MG/ml SYRG IV PRN (20:30)
[2022-01-15] MEDS ORDERED: DOCUSATE SOD 100 MG CAP PO PRN (20:30)
[2022-01-15] MEDS ORDERED: NITROGLYCERIN 0.4 MG SL TAB SL PRN (20:30)
[2022-01-15] MEDS ORDERED: ALBUTEROL SULF HFA 90MCG INH 200DOSE IN PRN (20:30)
[2022-01-15 20:53] VITALS: BP 167/80
[2022-01-15] MEDS ORDERED: SOD CHL 0.45% 1,000 ML IV ONE (21:00)
[2022-01-15] MEDS: KETOROLAC TROMETH 30 MG/ML 1ML VIAL IV SCH (22:00)
[2022-01-15] MEDS: GABAPENTIN 100 MG CAP PO SCH (23:23)
[2022-01-15] MEDS: cefTRIAXone 1GM/50ML D5W 50 ML IV SCH (23:23)
[2022-01-15] MEDS: ATORVASTATIN 20 MG TAB PO SCH (23:23)
[2022-01-15] MEDS: NIFEdipine ER 30 MG TAB PO SCH (23:24)
[2022-01-15] MEDS: METOPROLOL SUCCINATE XL 50 MG TAB PO SCH (23:25)
[2022-01-16] MEDS: ALBUTEROL SULF 2.5 MG/0.5ML(0.5%) NEB SOLN NEB PRN (04:17)
[2022-01-16] MEDS: KETOROLAC TROMETH 30 MG/ML 1ML VIAL IV SCH ×3 (06:09→19:26)
[2022-01-16] MEDS: PANTOPRAZOLE 40 MG TAB PO SCH (06:55)
[2022-01-16] MEDS ORDERED: methylPREDNISolone SOD SUCC 40 MG/ML VL IV SCH (09:00)
[2022-01-16] MEDS ORDERED: cefTRIAXone 1GM/50ML D5W 50 ML IV SCH (10:00)
[2022-01-16] MEDS: ARIPIPRAZOLE 10 MG PO SCH (10:00)
[2022-01-16] MEDS: CITALOPRAM HYDROBR 20 MG TAB PO SCH (10:34)
[2022-01-16] MEDS: NIFEdipine ER 30 MG TAB PO SCH ×2 (10:34→23:23)
[2022-01-16] MEDS: METOPROLOL SUCCINATE XL 50 MG TAB PO SCH ×2 (10:34→23:24)
[2022-01-16] MEDS: CLOPIDOGREL BISULFATE 75 MG TAB PO SCH (10:35)
[2022-01-16] MEDS: MUPIROCIN 2% OINT 15gm or 22gm TOP SCH ×2 (11:11→23:28)
[2022-01-16 16:18] VITALS: BP 167/82
[2022-01-16] MEDS ORDERED: HYDROmorphone HCL 2 MG/ML VL/or syr IV PRN (17:45)
[2022-01-16] MEDS: methylPREDNISolone SOD SUCC 40 MG/ML VL IV SCH (18:57)
[2022-01-16] MEDS: INSULIN LISPRO (HUMAN) 100 UNITS/ML ML SC SCH ×2 (19:28→23:59)
[2022-01-16] MEDS: cefTRIAXone 1GM/50ML D5W 50 ML IV SCH (21:25)
[2022-01-16 22:00] VITALS: BP 133/71
[2022-01-16] MEDS: ATORVASTATIN 20 MG TAB PO SCH (22:00)
[2022-01-16] MEDS: GABAPENTIN 100 MG CAP PO SCH (23:23)
[2022-01-17] MEDS: KETOROLAC TROMETH 30 MG/ML 1ML VIAL IV SCH ×4 (02:15→18:47)
[2022-01-17 05:00] VITALS: BP 149/62
[2022-01-17] MEDS: PANTOPRAZOLE 40 MG TAB PO SCH (06:08)
[2022-01-17] MEDS: INSULIN LISPRO (HUMAN) 100 UNITS/ML ML SC SCH ×4 (07:00→23:13)
[2022-01-17 09:00] VITALS: BP 107/41
[2022-01-17] MEDS: ARIPIPRAZOLE 10 MG PO SCH (10:00)
[2022-01-17] MEDS: CITALOPRAM HYDROBR 20 MG TAB PO SCH (10:10)
[2022-01-17] MEDS: METOPROLOL SUCCINATE XL 50 MG TAB PO SCH ×2 (10:11→22:00)
[2022-01-17] MEDS: CLOPIDOGREL BISULFATE 75 MG TAB PO SCH (10:12)
[2022-01-17] MEDS: NIFEdipine ER 30 MG TAB PO SCH ×2 (10:12→22:59)
[2022-01-17] MEDS: HYDROmorphone HCL 2 MG/ML VL/or syr IV PRN ×2 (10:13→20:15)
[2022-01-17] MEDS: methylPREDNISolone SOD SUCC 40 MG/ML VL IV SCH ×3 (10:28→23:23)
[2022-01-17] MEDS: MUPIROCIN 2% OINT 15gm or 22gm TOP SCH ×2 (10:30→23:16)
[2022-01-17 13:00] VITALS: BP 104/71
[2022-01-17 16:40] VITALS: BP 146/63
[2022-01-17] MEDS: cefTRIAXone 1GM/50ML D5W 50 ML IV SCH (21:03)
[2022-01-17] MEDS: ATORVASTATIN 20 MG TAB PO SCH (22:00)
[2022-01-17 22:03] VITALS: BP 145/69
[2022-01-17] MEDS: GABAPENTIN 100 MG CAP PO SCH (22:59)
[2022-01-18] MEDS: KETOROLAC TROMETH 30 MG/ML 1ML VIAL IV SCH ×4 (00:34→17:26)
[2022-01-18] MEDS: ALBUTEROL SULF 2.5 MG/0.5ML(0.5%) NEB SOLN NEB PRN (01:02)
[2022-01-18 05:00] VITALS: BP 132/63
[2022-01-18] MEDS: PANTOPRAZOLE 40 MG TAB PO SCH (06:09)
[2022-01-18] MEDS: INSULIN LISPRO (HUMAN) 100 UNITS/ML ML SC SCH ×4 (06:22→22:00)
[2022-01-18 06:55] LABS: Basophils # (auto) 0 10 ^3/uL (0-0.2); Eosinophils # (auto) 0 10 ^3/uL (0-0.8); Hemoglobin 13.1 g/dL (12.2-16.2); Mean Corpuscular Hemoglobin 26.1 pg (28.0-32.0); Monocytes # (auto) 0.3 10 ^3/uL (0-1.3)
[2022-01-18 06:57] LABS: Basophils % (auto) 0.5 % (0.0-2.0); Lymphocytes # (auto) 0.9 10 ^3/uL (0.4-5.4); Lymphocytes % (auto) 11.4 % (10.0-50.0); Mean Corpuscular Hgb Conc. 32.7 g/dL (32.0-36.0); Mean Corpuscular Volume 79.8 fL (80.0-100.0); Monocytes % (auto) 4.6 % (0.0-12.0); Neutrophils # (auto) 6.3 10 ^3/uL (1.6-8.6); Neutrophils % (auto) 83.5 % (37.0-80.0); Nucleated Red Blood Cells % 0.1 %; Red Blood Cells 5.02 10^6/uL (4.0-5.20); Red Cell Distribution Width 14.8 % (11.8-14.3); White Blood Cell 7.5 10^3/uL (4.4-10.8)
[2022-01-18 07:08] LABS: Calcium 9.3 mg/dL (8.5-10.1); Potassium 4.2 mmol/L (3.5-5.1)
[2022-01-18 07:14] LABS: Albumin 2.9 g/dL (3.4-5.0); BUN/Creatinine Ratio 36.5; Bilirubin, Total 0.2 mg/dL (0.2-1.0); Total Protein 6.8 g/dL (6.4-8.2)
[2022-01-18 09:00] VITALS: BP 156/84
[2022-01-18] MEDS: methylPREDNISolone SOD SUCC 40 MG/ML VL IV SCH (09:52)
[2022-01-18] MEDS: CLOPIDOGREL BISULFATE 75 MG TAB PO SCH (09:53)
[2022-01-18] MEDS: NIFEdipine ER 30 MG TAB PO SCH ×2 (09:53→23:30)
[2022-01-18] MEDS: CITALOPRAM HYDROBR 20 MG TAB PO SCH (09:53)
[2022-01-18] MEDS: METOPROLOL SUCCINATE XL 50 MG TAB PO SCH ×2 (09:55→22:00)
[2022-01-18] MEDS: ARIPIPRAZOLE 10 MG PO SCH (09:55)
[2022-01-18] MEDS: HYDROmorphone HCL 2 MG/ML VL/or syr IV PRN (10:09)
[2022-01-18] MEDS: MUPIROCIN 2% OINT 15gm or 22gm TOP SCH ×2 (10:10→23:30)
[2022-01-18 13:00] VITALS: BP 148/63
[2022-01-18 16:38] VITALS: BP 148/73
[2022-01-18] MEDS: cefTRIAXone 1GM/50ML D5W 50 ML IV SCH (20:45)
[2022-01-18 21:14] VITALS: BP 148/73
[2022-01-18 22:00] VITALS: BP 146/74
[2022-01-18] MEDS: ATORVASTATIN 20 MG TAB PO SCH (23:30)
[2022-01-18] MEDS: GABAPENTIN 100 MG CAP PO SCH (23:30)
[2022-01-19] MEDS: KETOROLAC TROMETH 30 MG/ML 1ML VIAL IV SCH ×4 (02:08→18:24)
[2022-01-19 05:16] VITALS: BP 155/64
[2022-01-19] MEDS: INSULIN LISPRO (HUMAN) 100 UNITS/ML ML SC SCH ×4 (06:24→21:54)
[2022-01-19] MEDS: PANTOPRAZOLE 40 MG TAB PO SCH (06:24)
[2022-01-19] MEDS: HYDROmorphone HCL 2 MG/ML VL/or syr IV PRN (08:42)
[2022-01-19] MEDS: CITALOPRAM HYDROBR 20 MG TAB PO SCH (08:42)
[2022-01-19] MEDS: NIFEdipine ER 30 MG TAB PO SCH ×2 (08:42→21:42)
[2022-01-19] MEDS: CLOPIDOGREL BISULFATE 75 MG TAB PO SCH (08:43)
[2022-01-19] MEDS: METOPROLOL SUCCINATE XL 50 MG TAB PO SCH ×2 (08:43→21:41)
[2022-01-19] MEDS: ARIPIPRAZOLE 10 MG PO SCH (08:53)
[2022-01-19] MEDS: MUPIROCIN 2% OINT 15gm or 22gm TOP SCH ×2 (08:53→21:39)
[2022-01-19 09:00] VITALS: BP 139/80
[2022-01-19 13:00] VITALS: BP 125/74
[2022-01-19] MEDS ORDERED: DIPHENOXYLATE W/ATROPINE 2.5 MG TAB PO PRN (13:00)
[2022-01-19] MEDS: SOD CHL 0.45% 1,000 ML IV SCH (13:18)
[2022-01-19] MEDS: metroNIDAZOLE 500 MG TAB PO SCH ×2 (14:42→21:41)
[2022-01-19 16:35] VITALS: BP 143/64
[2022-01-19] MEDS: cefTRIAXone 1GM/50ML D5W 50 ML IV SCH (21:00)
[2022-01-19] MEDS: GABAPENTIN 100 MG CAP PO SCH (21:41)
[2022-01-19] MEDS: ATORVASTATIN 20 MG TAB PO SCH (21:41)
[2022-01-19 22:00] VITALS: BP 136/63
[2022-01-20 05:00] VITALS: BP 135/79
[2022-01-20] MEDS: KETOROLAC TROMETH 30 MG/ML 1ML VIAL IV SCH ×4 (05:56→17:16)
[2022-01-20] MEDS: INSULIN LISPRO (HUMAN) 100 UNITS/ML ML SC SCH ×3 (05:57→17:00)
[2022-01-20] MEDS: PANTOPRAZOLE 40 MG TAB PO SCH (05:58)
[2022-01-20] MEDS: metroNIDAZOLE 500 MG TAB PO SCH ×2 (05:58→13:54)
[2022-01-20] MEDS: ARIPIPRAZOLE 10 MG PO SCH (08:41)
[2022-01-20] MEDS: CITALOPRAM HYDROBR 20 MG TAB PO SCH (08:41)
[2022-01-20] MEDS: NIFEdipine ER 30 MG TAB PO SCH (08:42)
[2022-01-20] MEDS: METOPROLOL SUCCINATE XL 50 MG TAB PO SCH (08:42)
[2022-01-20] MEDS: CLOPIDOGREL BISULFATE 75 MG TAB PO SCH (08:42)
[2022-01-20] MEDS: MUPIROCIN 2% OINT 15gm or 22gm TOP SCH (08:43)
[2022-01-20 09:00] VITALS: BP 134/82
[2022-01-20] MEDS: SOD CHL 0.45% 1,000 ML IV SCH (09:15)
[2022-01-20 13:00] VITALS: BP 146/74
[2022-01-20 17:00] VITALS: BP 144/60
[2022-01-20] MEDS ORDERED: CEFA-122 PO (18:41)
[2022-01-20] MEDS ORDERED: LORA-483 GT (18:41)
[2022-01-20] MEDS ORDERED: ALB5IS NEB (18:41)
[2022-01-20 20:35] VITALS: BP 134/82
[2022-01-20] MEDS: cefTRIAXone 1GM/50ML D5W 50 ML IV SCH (21:00)
== END 2022-01-20 21:15 | disposition home or self-care (01) | DRG 191 ==
LOC: ER 17:06 → TELE 20:32 → TELE-WESTW 01-16 15:03
PROVIDERS: ADMIT Specialist; ATTEND Specialist
DX: J44.1 Chronic obstructive pulmonary disease with (acute) exacerbation (principal); I24.9 Acute ischemic heart disease, unspecified; R07.81 Pleurodynia; E86.1 Hypovolemia; E86.0 Dehydration; E11.9 Type 2 diabetes mellitus without complications; E78.00 Pure hypercholesterolemia, unspecified; I10 Essential (primary) hypertension; F31.9 Bipolar disorder, unspecified; E66.09 Other obesity due to excess calories; I25.10 Atherosclerotic heart disease of native coronary artery without angina pectoris; I25.2 Old myocardial infarction; M79.7 Fibromyalgia; Z86.73 Personal history of transient ischemic attack (TIA), and cerebral infarction without residual deficits; Z87.891 Personal history of nicotine dependence; Z90.710 Acquired absence of both cervix and uterus; Z83.3 Family history of diabetes mellitus; Z68.37 Body mass index [BMI] 37.0-37.9, adult; Z88.8 Allergy status to other drugs, medicaments and biological substances
CPT/HCPCS: 36415; 71046; 73721; 80053; 80061; 82962; 83036; 83735; 83880; 84484; 85025; 85379; 85610; 85730; 87426; 93005; 94640; 96365; 96375; 99291; G0378; J0696; J1815; J1885

== ENCOUNTER 2022-04-02 18:46 | Inpatient (IN) | payer MEDICARE, MEDICAID ==
[~2022-04-02] VITALS: Ht 30.5 cm; Wt 107.9 kg
[~2022-04-02 18:46] MED LIST changes: +ALB5IS NEB; +CEFA-122 PO; +LORA-483 GT
[2022-04-02 22:00] VITALS: BP 156/93
[2022-04-02 22:19] VITALS: BP 159/97
[2022-04-02] MEDS ORDERED: ALBUTEROL SULF 2.5 MG/0.5ML(0.5%) NEB SOLN NEB PRN (22:45)
[2022-04-02 22:50] LABS: Basophils # (auto) 0.1 10 ^3/uL (0-0.2); Eosinophils # (auto) 0.3 10 ^3/uL (0-0.8); Hemoglobin 12.6 g/dL (12.2-16.2); Nucleated Red Blood Cells % 0.1 %; White Blood Cell 7.6 10^3/uL (4.4-10.8)
[2022-04-02 22:51] LABS: Basophils % (auto) 1.2 % (0.0-2.0); Eosinophils % (auto) 4.3 % (0.0-7.0); Hematocrit 38.9 % (36.0-46.0); Lymphocytes # (auto) 2.1 10 ^3/uL (0.4-5.4); Lymphocytes % (auto) 26.9 % (10.0-50.0); Mean Corpuscular Hgb Conc. 32.4 g/dL (32.0-36.0); Mean Corpuscular Volume 80.3 fL (80.0-100.0); Monocytes # (auto) 0.8 10 ^3/uL (0-1.3); Monocytes % (auto) 10.7 % (0.0-12.0); Neutrophils # (auto) 4.3 10 ^3/uL (1.6-8.6); Neutrophils % (auto) 56.9 % (37.0-80.0); Red Blood Cells 4.85 10^6/uL (4.0-5.20); Red Cell Distribution Width 14.8 % (11.8-14.3)
[2022-04-02 23:05] LABS: BUN/Creatinine Ratio 17.5; Calcium 8.7 mg/dL (8.5-10.1); Potassium 4.3 mmol/L (3.5-5.1)
[2022-04-02] MEDS: cefTRIAXone 1GM/50ML D5W 50 ML IV SCH (23:27)
[2022-04-02] MEDS: HYDROmorphone HCL 2 MG/ML VL/or syr IV PRN (23:28)
[2022-04-02] MEDS: methylPREDNISolone SOD SUCC 40 MG/ML VL IV SCH (23:28)
[2022-04-03] VITALS (7 sets, daily range): BP systolic 133–167; BP diastolic 70–93
[2022-04-03] MEDS ORDERED: HYDROmorphone HCL 2 MG/ML VL/or syr IV PRN ×2 (00:15)
[2022-04-03] MEDS ORDERED: hydrOXYzine 25 MG TAB or CAP PO PRN (00:15)
[2022-04-03] MEDS ORDERED: NITROGLYCERIN 0.4 MG SL TAB SL PRN (00:15)
[2022-04-03] MEDS: SOD CHL 0.45% 1,000 ML IV SCH (02:03)
[2022-04-03] MEDS: PANTOPRAZOLE 40 MG/10 ML VIAL INJ IV SCH ×3 (02:03→22:22)
[2022-04-03] MEDS: HYDROmorphone HCL 2 MG/ML VL/or syr IV PRN ×2 (03:45→15:46)
[2022-04-03] MEDS: EMPAGLIFLOZIN 10 MG TAB PO SCH (06:54)
[2022-04-03 07:06] LABS: Basophils # (auto) 0 10 ^3/uL (0-0.2); Eosinophils # (auto) 0 10 ^3/uL (0-0.8); Lymphocytes # (auto) 0.7 10 ^3/uL (0.4-5.4); Lymphocytes % (auto) 8.7 % (10.0-50.0); Monocytes # (auto) 0.1 10 ^3/uL (0-1.3); Monocytes % (auto) 1.1 % (0.0-12.0); Neutrophils % (auto) 89.9 % (37.0-80.0)
[2022-04-03 07:08] LABS: Basophils % (auto) 0.2 % (0.0-2.0); Eosinophils % (auto) 0.1 % (0.0-7.0); Hematocrit 40.1 % (36.0-46.0); Hemoglobin 12.6 g/dL (12.2-16.2); Mean Corpuscular Hemoglobin 25.4 pg (28.0-32.0); Mean Corpuscular Hgb Conc. 31.4 g/dL (32.0-36.0); Mean Corpuscular Volume 80.9 fL (80.0-100.0); Neutrophils # (auto) 6.8 10 ^3/uL (1.6-8.6); Nucleated Red Blood Cells % 0.1 %; Red Blood Cells 4.95 10^6/uL (4.0-5.20); White Blood Cell 7.5 10^3/uL (4.4-10.8)
[2022-04-03 07:40] LABS: BUN/Creatinine Ratio 15.5; Calcium 8.4 mg/dL (8.5-10.1)
[2022-04-03] MEDS ORDERED: ARIP1TAB7 PO (07:46)
[2022-04-03] MEDS ORDERED: ESCI-34 PO (07:46)
[2022-04-03] MEDS ORDERED: ROSU20TA14 PO (07:46)
[2022-04-03] MEDS: methylPREDNISolone SOD SUCC 40 MG/ML VL IV SCH ×3 (09:01→23:08)
[2022-04-03] MEDS: metFORMIN HYDROCHLORIDE 850 MG TAB PO SCH ×2 (09:02→17:41)
[2022-04-03] MEDS: cloNIDine HCL 0.1 MG TAB PO SCH ×2 (09:03→22:23)
[2022-04-03] MEDS: CLOPIDOGREL BISULFATE 75 MG TAB PO SCH (09:03)
[2022-04-03] MEDS: NIFEdipine ER 30 MG TAB PO SCH ×2 (09:04→22:24)
[2022-04-03] MEDS: METOPROLOL SUCCINATE XL 50 MG TAB PO SCH ×2 (09:04→22:24)
[2022-04-03] MEDS: FLUOCINONIDE 0.05% TOP CREAM 15GM TOP SCH ×2 (10:00→22:00)
[2022-04-03] MEDS: KETOROLAC TROMETH 30 MG/ML 1ML VIAL IV PRN ×2 (12:14→23:16)
[2022-04-03] MEDS: cefTRIAXone 1GM/50ML D5W 50 ML IV SCH (22:23)
[2022-04-03] MEDS: GABAPENTIN 300 MG CAP PO SCH (22:24)
[2022-04-03] MEDS ORDERED: ONDANSETRON HCL 4 MG/2 ML VIAL IV PRN (22:45)
[2022-04-04] MEDS: SOD CHL 0.45% 1,000 ML IV SCH (01:31)
[2022-04-04 05:00] VITALS: BP 129/70
[2022-04-04 05:57] LABS: Basophils # (auto) 0 10 ^3/uL (0-0.2); Eosinophils # (auto) 0 10 ^3/uL (0-0.8); Lymphocytes # (auto) 1.2 10 ^3/uL (0.4-5.4); Monocytes # (auto) 0.2 10 ^3/uL (0-1.3); Neutrophils % (auto) 85.9 % (37.0-80.0)
[2022-04-04 06:00] LABS: Basophils % (auto) 0.2 % (0.0-2.0); Hematocrit 39.2 % (36.0-46.0); Hemoglobin 12.9 g/dL (12.2-16.2); Lymphocytes % (auto) 11.5 % (10.0-50.0); Mean Corpuscular Hemoglobin 26.4 pg (28.0-32.0); Mean Corpuscular Hgb Conc. 32.9 g/dL (32.0-36.0); Monocytes % (auto) 2.4 % (0.0-12.0); Neutrophils # (auto) 8.6 10 ^3/uL (1.6-8.6); Red Blood Cells 4.89 10^6/uL (4.0-5.20)
[2022-04-04 06:23] LABS: Potassium 4.4 mmol/L (3.5-5.1)
[2022-04-04 06:35] LABS: BUN/Creatinine Ratio 29.8; Bilirubin, Total 0.3 mg/dL (0.2-1.0); Calcium 8.7 mg/dL (8.5-10.1); Total Protein 6.5 g/dL (6.4-8.2)
[2022-04-04] MEDS: EMPAGLIFLOZIN 10 MG TAB PO SCH (06:37)
[2022-04-04 07:58] VITALS: BP 113/53
[2022-04-04 09:00] VITALS: BP 113/53
[2022-04-04] MEDS: metFORMIN HYDROCHLORIDE 850 MG TAB PO SCH ×2 (09:55→17:27)
[2022-04-04] MEDS: methylPREDNISolone SOD SUCC 40 MG/ML VL IV SCH (09:56)
[2022-04-04] MEDS: PANTOPRAZOLE 40 MG/10 ML VIAL INJ IV SCH ×2 (09:56→21:55)
[2022-04-04] MEDS: KETOROLAC TROMETH 30 MG/ML 1ML VIAL IV PRN (09:56)
[2022-04-04] MEDS: NIFEdipine ER 30 MG TAB PO SCH ×2 (09:57→21:54)
[2022-04-04] MEDS: METOPROLOL SUCCINATE XL 50 MG TAB PO SCH ×2 (09:57→21:55)
[2022-04-04] MEDS: CLOPIDOGREL BISULFATE 75 MG TAB PO SCH (09:57)
[2022-04-04] MEDS: cloNIDine HCL 0.1 MG TAB PO SCH ×2 (10:00→21:54)
[2022-04-04] MEDS: FLUOCINONIDE 0.05% TOP CREAM 15GM TOP SCH ×2 (11:38→22:00)
[2022-04-04 13:00] VITALS: BP 124/65
[2022-04-04] MEDS: HYDROmorphone HCL 2 MG/ML VL/or syr IV PRN ×2 (15:37→22:19)
[2022-04-04 17:00] VITALS: BP 131/71
[2022-04-04] MEDS: SUCRALFATE 1 GM TAB PO SCH ×2 (17:27→21:55)
[2022-04-04] MEDS ORDERED: POLYETHYLENE GLYCOL 17 GM PWDR PO ONE ×2 (18:45→22:15)
[2022-04-04] MEDS: cefTRIAXone 1GM/50ML D5W 50 ML IV SCH (21:53)
[2022-04-04] MEDS: GABAPENTIN 300 MG CAP PO SCH (21:55)
[2022-04-04 22:00] VITALS: BP 150/75
[2022-04-05] VITALS (7 sets, daily range): BP systolic 121–135; BP diastolic 69–77
[2022-04-05] MEDS: EMPAGLIFLOZIN 10 MG TAB PO SCH (06:21)
[2022-04-05] MEDS: SUCRALFATE 1 GM TAB PO SCH ×4 (06:21→22:08)
[2022-04-05] MEDS: metFORMIN HYDROCHLORIDE 850 MG TAB PO SCH ×2 (08:46→17:52)
[2022-04-05] MEDS: HYDROmorphone HCL 2 MG/ML VL/or syr IV PRN ×2 (09:03→17:51)
[2022-04-05] MEDS: cloNIDine HCL 0.1 MG TAB PO SCH ×2 (10:00→22:00)
[2022-04-05] MEDS: LACTULOSE 20Gm/30ML SOLN PO SCH (10:00)
[2022-04-05] MEDS: METOPROLOL SUCCINATE XL 50 MG TAB PO SCH ×2 (10:00→22:00)
[2022-04-05] MEDS: PANTOPRAZOLE 40 MG/10 ML VIAL INJ IV SCH ×2 (10:21→22:09)
[2022-04-05] MEDS: CLOPIDOGREL BISULFATE 75 MG TAB PO SCH (10:21)
[2022-04-05] MEDS: NIFEdipine ER 30 MG TAB PO SCH ×2 (10:22→22:09)
[2022-04-05] MEDS: FLUOCINONIDE 0.05% TOP CREAM 15GM TOP SCH ×2 (10:22→22:00)
[2022-04-05 13:56] LABS: Hepatitis C Antibody Negative (Negative)
[2022-04-05] MEDS ORDERED: CITALOPRAM HYDROBR 20 MG TAB PO ONE (16:15)
[2022-04-05] MEDS ORDERED: ESCITALOPRAM 20MG PO ONE (16:30)
[2022-04-05] MEDS: SOD CHL 0.45% 1,000 ML IV SCH ×2 (17:59)
[2022-04-05] MEDS: GABAPENTIN 300 MG CAP PO SCH (22:08)
[2022-04-05] MEDS: cefTRIAXone 1GM/50ML D5W 50 ML IV SCH (22:09)
[2022-04-06 05:00] VITALS: BP 141/66
[2022-04-06] MEDS: EMPAGLIFLOZIN 10 MG TAB PO SCH (06:15)
[2022-04-06] MEDS: SUCRALFATE 1 GM TAB PO SCH (06:15)
[2022-04-06] MEDS: metFORMIN HYDROCHLORIDE 850 MG TAB PO SCH (08:12)
[2022-04-06] MEDS: HYDROmorphone HCL 2 MG/ML VL/or syr IV PRN (08:44)
[2022-04-06 09:00] VITALS: BP 131/55
[2022-04-06] MEDS: METOPROLOL SUCCINATE XL 50 MG TAB PO SCH (10:00)
[2022-04-06] MEDS ORDERED: CITALOPRAM HYDROBR 20 MG TAB PO SCH (10:00)
[2022-04-06] MEDS: cloNIDine HCL 0.1 MG TAB PO SCH (10:00)
[2022-04-06] MEDS ORDERED: ESCITALOPRAM 20MG PO SCH (10:00)
[2022-04-06] MEDS: LACTULOSE 20Gm/30ML SOLN PO SCH (10:00)
[2022-04-06] MEDS: NIFEdipine ER 30 MG TAB PO SCH (10:00)
[2022-04-06] MEDS ORDERED: ABILIFY 10 MG PO SCH (10:00)
[2022-04-06] MEDS: PANTOPRAZOLE 40 MG/10 ML VIAL INJ IV SCH (10:09)
[2022-04-06] MEDS: CLOPIDOGREL BISULFATE 75 MG TAB PO SCH (10:10)
[2022-04-06] MEDS: FLUOCINONIDE 0.05% TOP CREAM 15GM TOP SCH (10:10)
[2022-04-06 10:36] VITALS: BP 131/55
== END 2022-04-06 12:12 | disposition home or self-care (01) | DRG 191 ==
LOC: TELE-CENTR 20:40 → UNDOADMIN 20:40 → TELE-CENTR 04-03 01:21
PROVIDERS: ADMIT Internal Medicine Infectious Disease; ATTEND Internal Medicine Infectious Disease
DX: J44.1 Chronic obstructive pulmonary disease with (acute) exacerbation (principal); N39.0 Urinary tract infection, site not specified; E11.9 Type 2 diabetes mellitus without complications; E78.00 Pure hypercholesterolemia, unspecified; F31.9 Bipolar disorder, unspecified; I10 Essential (primary) hypertension; I25.10 Atherosclerotic heart disease of native coronary artery without angina pectoris; Z20.822 Contact with and (suspected) exposure to COVID-19; E66.09 Other obesity due to excess calories; Z86.73 Personal history of transient ischemic attack (TIA), and cerebral infarction without residual deficits; M79.7 Fibromyalgia; E86.0 Dehydration; E86.1 Hypovolemia; L30.9 Dermatitis, unspecified; J44.0 Chronic obstructive pulmonary disease with (acute) lower respiratory infection; K59.00 Constipation, unspecified; Z96.641 Presence of right artificial hip joint; I25.2 Old myocardial infarction; Z88.8 Allergy status to other drugs, medicaments and biological substances; Z68.38 Body mass index [BMI] 38.0-38.9, adult; Z71.3 Dietary counseling and surveillance; Z79.82 Long term (current) use of aspirin; Z79.84 Long term (current) use of oral hypoglycemic drugs; Z79.899 Other long term (current) drug therapy; Z82.49 Family history of ischemic heart disease and other diseases of the circulatory system; Z83.3 Family history of diabetes mellitus; Z87.891 Personal history of nicotine dependence; Z91.14 Patient's other noncompliance with medication regimen
CPT/HCPCS: 36415; 71045; 80048; 80053; 80061; 82270; 83036; 84484; 85025; 86803; 87070; 87205; 87340; 87426; 93005; 94640; 96361; 96374; C9113; G0378; J0696; J1885; J2405

== ENCOUNTER 2022-09-05 09:33 | Inpatient (IN) | payer MEDICARE, MEDICAID ==
[~2022-09-05] VITALS: Ht 170.2 cm; Wt 115.0 kg
[~2022-09-05 09:33] MED LIST changes: +ARIP1TAB7 PO; -ESCI-34 PO; +ESCI1TAB37 PO; +GABA-1308 PO; -GABA100C9 PO; +ROSU20TA14 PO
[2022-09-05 10:16] LABS: Basophils # (auto) 0.1 10 ^3/uL (0-0.2); Basophils % (auto) 0.9 % (0.0-2.0); Eosinophils # (auto) 0.5 10 ^3/uL (0-0.8); Eosinophils % (auto) 7.6 % (0.0-7.0); Hematocrit 42.4 % (36.0-46.0); Lymphocytes # (auto) 2.1 10 ^3/uL (0.4-5.4); Lymphocytes % (auto) 33.1 % (10.0-50.0); Mean Corpuscular Hemoglobin 24.3 pg (28.0-32.0); Mean Corpuscular Hgb Conc. 30.8 g/dL (32.0-36.0); Monocytes # (auto) 0.6 10 ^3/uL (0-1.3); Monocytes % (auto) 9.9 % (0.0-12.0); Neutrophils # (auto) 3.1 10 ^3/uL (1.6-8.6); Neutrophils % (auto) 48.5 % (37.0-80.0); Nucleated Red Blood Cells % 0.1 %; Red Blood Cells 5.37 10^6/uL (4.0-5.20); White Blood Cell 6.5 10^3/uL (4.4-10.8)
[2022-09-05 10:29] LABS: Albumin 3.4 g/dL (3.4-5.0); Calcium 8.6 mg/dL (8.5-10.1); Potassium 3.9 mmol/L (3.5-5.1)
[2022-09-05 10:30] LABS: BUN/Creatinine Ratio 13.2 (10.0-20.0); Bilirubin, Total 0.2 mg/dL (0.2-1.0); Total Protein 6.7 g/dL (6.4-8.2)
[2022-09-05] MEDS ORDERED: ENOXAPARIN SOD 120 MG/0.8 ML SYRINGE SC ONE (11:30)
[2022-09-05] MEDS ORDERED: MORPHINE SULFATE INJ 2 MG/ml SYRG IV PRN (12:30)
[2022-09-05] MEDS ORDERED: SOD CHL 0.45% 1,000 ML IV ONE (12:30)
[2022-09-05] MEDS ORDERED: ALBUTEROL SULF 2.5 MG/0.5ML(0.5%) NEB SOLN NEB PRN (12:30)
[2022-09-05] MEDS ORDERED: DOCUSATE SOD 100 MG CAP PO PRN (12:30)
[2022-09-05] MEDS ORDERED: NITROGLYCERIN 0.4 MG SL TAB SL PRN (12:30)
[2022-09-05] MEDS ORDERED: ALBUTEROL SULF HFA 90MCG INH 200DOSE IN PRN (12:30)
[2022-09-05] MEDS ORDERED: HYDROmorphone HCL 2 MG/ML VL/or syr IV PRN ×2 (12:30)
[2022-09-05 15:36] LABS: Urine Bacteria NONE SEEN /hpf (None Seen); Urine Blood 1+ /uL (Negative); Urine Mucus FEW (None Seen); Urine WBC 897 /hpf (0 - 5); Urine WBC Clumps PRESENT /hpf (None Seen)
[2022-09-05 16:03] VITALS: BP 172/82
[2022-09-05] MEDS ORDERED: Rosuvastatin Calcium 20 MG PO SCH (18:00)
[2022-09-05] MEDS ORDERED: GABAPENTIN 100 MG CAP PO SCH (22:00)
[2022-09-05] MEDS ORDERED: MUPIROCIN 2% OINT 15gm or 22gm TOP SCH (22:00)
[2022-09-05] MEDS ORDERED: CELECOXIB 100 MG CAP PO SCH (22:00)
[2022-09-06] MEDS ORDERED: PANTOPRAZOLE 40 MG TAB PO SCH (07:00)
[2022-09-06] MEDS ORDERED: CITALOPRAM HYDROBR 20 MG TAB PO SCH (10:00)
[2022-09-06] MEDS ORDERED: EZETIMIBE PO SCH (10:00)
[2022-09-06] MEDS ORDERED: PATIENTS OWN MEDICATION (Escitalopram Oxalate 1 TAB) PO SCH (10:00)
[2022-09-06] MEDS ORDERED: METOPROLOL SUCCINATE XL 50 MG TAB PO SCH (10:00)
[2022-09-06] MEDS ORDERED: CLOPIDOGREL BISULFATE 75 MG TAB PO SCH (10:00)
[2022-09-06] MEDS ORDERED: METFORMIN HYDROCHLORIDE PO SCH (10:00)
[2022-09-06] MEDS ORDERED: LORATADINE 10 MG TAB GT SCH (10:00)
[2022-09-06] MEDS ORDERED: EMPAGLIFLOZIN 10 MG TAB PO SCH (10:00)
[2022-09-06] MEDS ORDERED: ARIPIPRAZOLE PO SCH (10:00)
[2022-09-06] MEDS ORDERED: PATIENTS OWN MEDICATION (Rosuvastatin Calcium (Crestor) 1 TAB) PO SCH (10:00)
== END 2022-09-06 02:40 | disposition left against medical advice (07) | DRG 191 ==
LOC: ER 09:33 → TELE 12:26
PROVIDERS: ADMIT Internal Medicine; ATTEND Internal Medicine
DX: J44.1 Chronic obstructive pulmonary disease with (acute) exacerbation (principal); Z68.41 Body mass index [BMI] 40.0-44.9, adult; R10.13 Epigastric pain; M79.7 Fibromyalgia; E78.00 Pure hypercholesterolemia, unspecified; Z86.73 Personal history of transient ischemic attack (TIA), and cerebral infarction without residual deficits; E66.01 Morbid (severe) obesity due to excess calories; L30.9 Dermatitis, unspecified; E11.65 Type 2 diabetes mellitus with hyperglycemia; Z53.21 Procedure and treatment not carried out due to patient leaving prior to being seen by health care provider; I25.118 Atherosclerotic heart disease of native coronary artery with other forms of angina pectoris; I10 Essential (primary) hypertension; Z96.641 Presence of right artificial hip joint; E86.1 Hypovolemia; F31.9 Bipolar disorder, unspecified; I25.2 Old myocardial infarction; Z79.82 Long term (current) use of aspirin; Z79.899 Other long term (current) drug therapy; Z87.891 Personal history of nicotine dependence; Z90.710 Acquired absence of both cervix and uterus; Z91.119 Patient's noncompliance with dietary regimen due to unspecified reason; Z88.8 Allergy status to other drugs, medicaments and biological substances
CPT/HCPCS: 36415; 71045; 80053; 81001; 83690; 84484; 85025; 93005; 99291; G0378

== ENCOUNTER 2023-01-29 05:12 | Inpatient (IN) | payer MEDICARE, MEDICAID ==
[~2023-01-29] VITALS: Ht 165.1 cm; Wt 104.5 kg
[~2023-01-29 05:12] MED LIST changes: -ARIP1TAB5 PO; -NIFE1TAB30 PO
[2023-01-29 06:36] LABS: Basophils # (auto) 0 10 ^3/uL (0-0.2); Eosinophils # (auto) 0.8 10 ^3/uL (0-0.8); Lymphocytes % (auto) 33.5 % (10.0-50.0); Mean Corpuscular Hgb Conc. 31.5 g/dL (32.0-36.0); Monocytes # (auto) 0.8 10 ^3/uL (0-1.3); Neutrophils # (auto) 2.4 10 ^3/uL (1.6-8.6)
[2023-01-29 06:37] LABS: Alanine Aminotransferase 15 U/L (7-40); Albumin 4.1 g/dL (3.2-4.8); Alkaline Phosphatase 104 U/L (46-116); Anion Gap 5 (5-15); Aspartate Aminotransferase 14 U/L (13-40); BUN/Creatinine Ratio 15.1 (10.0-20.0); Bilirubin, Total 0.2 mg/dL (0.2-1.0); Blood Urea Nitrogen 11 mg/dL (9-23); Calcium 8.9 mg/dL (8.5-10.1); Carbon Dioxide 27 mmol/L (20-30); Chloride 110 mmol/L (98-107); Glucose 112 mg/dL (74-106); Potassium 4.2 mmol/L (3.5-5.1); Sodium 142 mmol/L (136-145); Total Protein 6.7 g/dL (5.7-8.2)
[2023-01-29 06:38] LABS: Basophils % (auto) 0.6 % (0.0-2.0); Eosinophils % (auto) 13.6 % (0.0-7.0); Hematocrit 38.1 % (36.0-46.0); Mean Corpuscular Volume 79.4 fL (80.0-100.0); Monocytes % (auto) 13.1 % (0.0-12.0); Neutrophils % (auto) 39.2 % (37.0-80.0); Red Cell Distribution Width 15.5 % (11.8-14.3)
[2023-01-29 06:47] LABS: INR 0.98 (0.9-1.15); Partial Thromboplastin Time 30.2 SEC (24.5-34.5); Prothrombin Time 10.3 sec (9.3-11.8)
[2023-01-29 06:51] LABS: Magnesium 1.8 mg/dL (1.6-2.6)
[2023-01-29] MEDS ORDERED: NITROGLYCERIN 0.4 MG SL TAB SL ONE (07:30)
[2023-01-29] MEDS ORDERED: ASPirin 325 MG TAB PO ONE (07:30)
[2023-01-29] MEDS: SOD CHL 0.45% 1,000 ML IV SCH (08:15)
[2023-01-29] MEDS ORDERED: ACETAMINOPHEN 325 MG TAB PO PRN (08:15)
[2023-01-29] MEDS ORDERED: ALBUTEROL SULF 2.5 MG/0.5ML(0.5%) NEB SOLN NEB PRN (08:15)
[2023-01-29] MEDS ORDERED: IPRATROPIUM BROM 0.5 MG/2.5ML INH SOL NEB PRN ×2 (08:15→09:15)
[2023-01-29] MEDS ORDERED: MAALOX PLUS or MAALOX 30 ML PO ONE (08:15)
[2023-01-29] MEDS ORDERED: LORazepam 0.5 MG TAB PO PRN (08:15)
[2023-01-29] MEDS ORDERED: ALBUTEROL SULF HFA 90MCG INH 200DOSE IN PRN (08:15)
[2023-01-29] MEDS ORDERED: ONDANSETRON HCL 4 MG/2 ML VIAL IV PRN (08:15)
[2023-01-29] MEDS ORDERED: PNEUMOCOCCAL VACC POLYS 25 MCG/0.5 ML VIAL IM ONE (08:15)
[2023-01-29] MEDS ORDERED: DEXTROSE (50%) 50ML SYRG IV PRN (08:15)
[2023-01-29] MEDS ORDERED: ZOLPIDEM TARTRATE 5 MG TAB PO PRN (08:15)
[2023-01-29] MEDS ORDERED: LOSARTAN POTASSIUM 25 MG TAB PO SCH (10:00)
[2023-01-29] MEDS ORDERED: PATIENTS OWN MEDICATION (Escitalopram Oxalate 1 TAB) PO SCH (10:00)
[2023-01-29] MEDS ORDERED: METFORMIN HYDROCHLORIDE PO SCH (10:00)
[2023-01-29] MEDS: CITALOPRAM HYDROBR 20 MG TAB PO SCH (10:40)
[2023-01-29] MEDS: ENOXAPARIN SOD 40 MG/0.4 ML SYRINGE SC SCH (10:40)
[2023-01-29] MEDS: metFORMIN HYDROCHLORIDE 500 MG TAB PO SCH (10:41)
[2023-01-29] MEDS: CLOPIDOGREL BISULFATE 75 MG TAB PO SCH (10:42)
[2023-01-29] MEDS: LORATADINE 10 MG TAB PO SCH (10:43)
[2023-01-29] MEDS: EMPAGLIFLOZIN 10 MG TAB PO SCH (10:43)
[2023-01-29] MEDS: METOPROLOL SUCCINATE XL 50 MG TAB PO SCH (10:45)
[2023-01-29 10:58] VITALS: BP 118/78; PULSE 74; RESP 18; TEMP 99; O2SAT 99
[2023-01-29 11:02] VITALS: O2SAT 99
[2023-01-29] MEDS ORDERED: HYDROcodone-ACET 5/325MG TAB ONE (11:16)
[2023-01-29] MEDS: LOSARTAN POTASSIUM 50 MG TAB PO SCH ×2 (11:30→13:00)
[2023-01-29] MEDS: ACCU-CHEK COMFORT CURVE STRIP VI SCH ×2 (11:30→17:00)
[2023-01-29] MEDS: MUPIROCIN 2% OINT 15gm or 22gm TOP SCH (13:01)
[2023-01-29] MEDS: HYDROcodone-ACET 5/325MG TAB PO PRN (17:45)
[2023-01-29 19:36] VITALS: O2SAT 97
[2023-01-30] VITALS (10 sets, daily range): BP systolic 130–146; BP diastolic 53–87; PULSE 52–77; RESP 16–22; TEMP 97.8–98.4; O2SAT 93–98
[2023-01-30] MEDS: ACCU-CHEK COMFORT CURVE STRIP VI SCH ×5 (02:09→22:27)
[2023-01-30] MEDS: ROSUVASTATIN 20 MG PO SCH ×2 (02:13→22:00)
[2023-01-30] MEDS: METOPROLOL SUCCINATE XL 50 MG TAB PO SCH ×3 (02:20→22:27)
[2023-01-30] MEDS: MUPIROCIN 2% OINT 15gm or 22gm TOP SCH ×3 (02:20→22:00)
[2023-01-30] MEDS: GABAPENTIN 100 MG CAP PO SCH ×2 (02:20→22:32)
[2023-01-30] MEDS: HYDROcodone-ACET 5/325MG TAB PO PRN ×3 (02:21→17:31)
[2023-01-30 06:13] LABS: Hemoglobin 11.6 g/dL (12.2-16.2); Monocytes # (auto) 0.9 10 ^3/uL (0-1.3); Neutrophils # (auto) 2.5 10 ^3/uL (1.6-8.6); Nucleated Red Blood Cells % 0.1 %
[2023-01-30 06:19] LABS: Basophils # (auto) 0 10 ^3/uL (0-0.2); Basophils % (auto) 0.7 % (0.0-2.0); Eosinophils # (auto) 0.8 10 ^3/uL (0-0.8); Eosinophils % (auto) 13.3 % (0.0-7.0); Hematocrit 36.4 % (36.0-46.0); Lymphocytes # (auto) 1.9 10 ^3/uL (0.4-5.4); Lymphocytes % (auto) 30.8 % (10.0-50.0); Mean Corpuscular Hemoglobin 25.3 pg (28.0-32.0); Mean Corpuscular Hgb Conc. 31.9 g/dL (32.0-36.0); Mean Corpuscular Volume 79.3 fL (80.0-100.0); Monocytes % (auto) 14.9 % (0.0-12.0); Neutrophils % (auto) 40.3 % (37.0-80.0); Red Blood Cells 4.59 10^6/uL (4.0-5.20); Red Cell Distribution Width 15.9 % (11.8-14.3); White Blood Cell 6.2 10^3/uL (4.4-10.8)
[2023-01-30 06:20] LABS: Albumin 3.9 g/dL (3.2-4.8); Alkaline Phosphatase 91 U/L (46-116); Anion Gap 5 (5-15); Aspartate Aminotransferase 13 U/L (13-40); BUN/Creatinine Ratio 13.2 (10.0-20.0); Blood Urea Nitrogen 9 mg/dL (9-23); Calcium 8.9 mg/dL (8.5-10.1); Carbon Dioxide 27 mmol/L (20-30); Chloride 109 mmol/L (98-107); Cholesterol 112 mg/dL (< 200); Glucose 108 mg/dL (74-106); LDL Cholesterol 64 mg/dL (< 100); Potassium 3.8 mmol/L (3.5-5.1); Sodium 141 mmol/L (136-145); Triglycerides 108 mg/dL (< 150)
[2023-01-30 06:21] LABS: Bilirubin, Total 0.2 mg/dL (0.2-1.0); HDL Cholesterol 33 mg/dL (40-59); Total Protein 6.7 g/dL (5.7-8.2)
[2023-01-30 06:25] LABS: Alanine Aminotransferase 9 U/L (7-40)
[2023-01-30] MEDS: PANTOPRAZOLE 40 MG TAB PO SCH (06:58)
[2023-01-30] MEDS: SOD CHL 0.45% 1,000 ML IV SCH (09:44)
[2023-01-30] MEDS: LOSARTAN POTASSIUM 50 MG TAB PO SCH (09:45)
[2023-01-30] MEDS: CITALOPRAM HYDROBR 20 MG TAB PO SCH (09:45)
[2023-01-30] MEDS: CLOPIDOGREL BISULFATE 75 MG TAB PO SCH (09:48)
[2023-01-30] MEDS: LORATADINE 10 MG TAB PO SCH (09:48)
[2023-01-30] MEDS: metFORMIN HYDROCHLORIDE 500 MG TAB PO SCH (09:48)
[2023-01-30] MEDS: EMPAGLIFLOZIN 10 MG TAB PO SCH (09:49)
[2023-01-30] MEDS: ENOXAPARIN SOD 40 MG/0.4 ML SYRINGE SC SCH (09:49)
[2023-01-30] MEDS ORDERED: LOSARTAN POTASSIUM 50 MG TAB PO SCH (10:00)
[2023-01-30 10:39] LABS: Urine Bacteria FEW /hpf (None Seen); Urine Blood 1+ /uL (Negative); Urine Clarity HAZY (Clear); Urine Color Yellow (Yellow); Urine Hyaline Cast FEW /lpf (0 - 2); Urine Mucus FEW (None Seen); Urine Protein, UAD TRACE (Negative); Urine Specific Gravity 1.032 (1.001-1.035); Urine Urobilinogen Normal (Negative); Urine WBC 206 /hpf (0 - 5); Urine pH 5.5 (5.0-8.0)
[2023-01-30] MEDS ORDERED: BACTRIM 5MG/KG Q8HR PER RX 10 ML IV SCH (12:45)
[2023-01-30] MEDS: SULFAMETH-TRIMETH 80/16MG-ML 20 ML in D5W 5% 500 ML IV SCH (15:49)
[2023-01-30] MEDS: NITROGLYCERIN 0.4 MG SL TAB SL PRN ×3 (20:00→20:17)
[2023-01-30] MEDS ORDERED: HYDROcodone-ACET 5/325MG TAB PO ONE (20:30)
[2023-01-30] MEDS ORDERED: MORPHINE SULFATE INJ 2 MG/ml SYRG IV PRN (20:45)
[2023-01-31] VITALS (11 sets, daily range): BP systolic 119–146; BP diastolic 51–66; PULSE 58–73; RESP 17–21; TEMP 97.5–99; O2SAT 95–100
[2023-01-31] MEDS: HYDROcodone-ACET 5/325MG TAB PO PRN ×3 (04:38→16:11)
[2023-01-31] MEDS: SULFAMETH-TRIMETH 80/16MG-ML 20 ML in D5W 5% 500 ML IV SCH ×2 (05:04→16:35)
[2023-01-31] MEDS ORDERED: ALBUTEROL MEDNEB 2.5 mg/3ml NEB ONE (06:30)
[2023-01-31] MEDS: ACCU-CHEK COMFORT CURVE STRIP VI SCH ×4 (06:44→22:10)
[2023-01-31] MEDS: PANTOPRAZOLE 40 MG TAB PO SCH (06:46)
[2023-01-31] MEDS: SOD CHL 0.45% 1,000 ML IV SCH (08:15)
[2023-01-31] MEDS: MUPIROCIN 2% OINT 15gm or 22gm TOP SCH ×2 (10:00→22:00)
[2023-01-31] MEDS: EMPAGLIFLOZIN 10 MG TAB PO SCH (10:30)
[2023-01-31] MEDS: metFORMIN HYDROCHLORIDE 500 MG TAB PO SCH (10:30)
[2023-01-31] MEDS: CITALOPRAM HYDROBR 20 MG TAB PO SCH (10:30)
[2023-01-31] MEDS: LOSARTAN POTASSIUM 50 MG TAB PO SCH (10:34)
[2023-01-31] MEDS: CLOPIDOGREL BISULFATE 75 MG TAB PO SCH (10:34)
[2023-01-31] MEDS: METOPROLOL SUCCINATE XL 50 MG TAB PO SCH ×2 (10:35→22:08)
[2023-01-31] MEDS: LORATADINE 10 MG TAB PO SCH (10:36)
[2023-01-31] MEDS: ENOXAPARIN SOD 40 MG/0.4 ML SYRINGE SC SCH (10:37)
[2023-01-31] MEDS: DOCUSATE SOD 100 MG CAP PO PRN (16:11)
[2023-01-31] MEDS: ROSUVASTATIN 20 MG PO SCH (22:00)
[2023-01-31] MEDS: GABAPENTIN 100 MG CAP PO SCH (22:08)
[2023-01-31] MEDS ORDERED: SOD CHL 0.45% 1,000 ML IV SCH (22:15)
[2023-02-01 05:00] VITALS: BP 154/72; PULSE 64; RESP 18; TEMP 98.6; O2SAT 95
[2023-02-01] MEDS ORDERED: SULFAMETH-TRIMETH 80/16MG-ML 20 ML in D5W 5% 500 ML IV SCH ×2 (06:00→14:30)
[2023-02-01] MEDS: HYDROcodone-ACET 5/325MG TAB PO PRN (06:03)
[2023-02-01] MEDS: PANTOPRAZOLE 40 MG TAB PO SCH (06:03)
[2023-02-01] MEDS: ACCU-CHEK COMFORT CURVE STRIP VI SCH ×2 (06:14→11:27)
[2023-02-01 06:37] LABS: Basophils # (auto) 0 10 ^3/uL (0-0.2); Lymphocytes # (auto) 1.1 10 ^3/uL (0.4-5.4); Monocytes # (auto) 0.7 10 ^3/uL (0-1.3); Neutrophils # (auto) 2.8 10 ^3/uL (1.6-8.6); White Blood Cell 5.4 10^3/uL (4.4-10.8)
[2023-02-01 06:42] LABS: Basophils % (auto) 0.5 % (0.0-2.0); Eosinophils # (auto) 0.8 10 ^3/uL (0-0.8); Eosinophils % (auto) 13.9 % (0.0-7.0); Hematocrit 37.5 % (36.0-46.0); Hemoglobin 12.2 g/dL (12.2-16.2); Lymphocytes % (auto) 21.2 % (10.0-50.0); Mean Corpuscular Hemoglobin 25.7 pg (28.0-32.0); Mean Corpuscular Hgb Conc. 32.5 g/dL (32.0-36.0); Mean Corpuscular Volume 79.2 fL (80.0-100.0); Monocytes % (auto) 12.4 % (0.0-12.0); Red Blood Cells 4.74 10^6/uL (4.0-5.20); Red Cell Distribution Width 15.5 % (11.8-14.3)
[2023-02-01 06:54] LABS: Albumin 3.7 g/dL (3.2-4.8); Alkaline Phosphatase 81 U/L (46-116); Anion Gap 6 (5-15); Aspartate Aminotransferase 14 U/L (13-40); Bilirubin, Total 0.3 mg/dL (0.2-1.0); Blood Urea Nitrogen 6 mg/dL (9-23); Calcium 8.8 mg/dL (8.5-10.1); Carbon Dioxide 24 mmol/L (20-30); Chloride 109 mmol/L (98-107); Glucose 86 mg/dL (74-106); Potassium 3.9 mmol/L (3.5-5.1); Sodium 139 mmol/L (136-145); Total Protein 6.4 g/dL (5.7-8.2)
[2023-02-01 07:29] LABS: Alanine Aminotransferase < 9 U/L (7-40)
[2023-02-01 08:00] VITALS: PULSE 57
[2023-02-01] MEDS: ENOXAPARIN SOD 40 MG/0.4 ML SYRINGE SC SCH (09:03)
[2023-02-01] MEDS: DOCUSATE SOD 100 MG CAP PO PRN (09:05)
[2023-02-01] MEDS: EMPAGLIFLOZIN 10 MG TAB PO SCH (09:05)
[2023-02-01] MEDS: CITALOPRAM HYDROBR 20 MG TAB PO SCH (09:06)
[2023-02-01] MEDS: metFORMIN HYDROCHLORIDE 500 MG TAB PO SCH (09:06)
[2023-02-01] MEDS: CLOPIDOGREL BISULFATE 75 MG TAB PO SCH (09:07)
[2023-02-01] MEDS: METOPROLOL SUCCINATE XL 50 MG TAB PO SCH (09:08)
[2023-02-01] MEDS: LORATADINE 10 MG TAB PO SCH (09:08)
[2023-02-01] MEDS: LOSARTAN POTASSIUM 50 MG TAB PO SCH (09:09)
[2023-02-01] MEDS: MUPIROCIN 2% OINT 15gm or 22gm TOP SCH (09:10)
[2023-02-01 10:41] VITALS: BP 122/59; PULSE 59; RESP 19; TEMP 98.7; O2SAT 95
[2023-02-01 11:17] VITALS: BP 122/59; PULSE 59; RESP 18; O2SAT 100; O2SAT 98; O2SAT 99
[2023-02-01 13:30] VITALS: BP 140/79; PULSE 97; RESP 18; TEMP 98.2; O2SAT 99
[2023-02-01] MEDS ORDERED: BACTRIM 5MG/KG Q8HR PER RX 10 ML IV ONE (14:00)
== END 2023-02-01 17:00 | disposition home health service (06) | DRG 202 ==
LOC: ER 05:12 → TELE 09:01 → TELE-EAST 01-30 08:34
PROVIDERS: ADMIT Specialist; ATTEND Specialist
DX: J20.9 Acute bronchitis, unspecified (principal); N39.0 Urinary tract infection, site not specified; Z68.41 Body mass index [BMI] 40.0-44.9, adult; R07.89 Other chest pain; M79.7 Fibromyalgia; I10 Essential (primary) hypertension; E66.01 Morbid (severe) obesity due to excess calories; L30.9 Dermatitis, unspecified; K21.9 Gastro-esophageal reflux disease without esophagitis; E11.9 Type 2 diabetes mellitus without complications; E78.00 Pure hypercholesterolemia, unspecified; Z23 Encounter for immunization; E86.1 Hypovolemia; E87.8 Other disorders of electrolyte and fluid balance, not elsewhere classified; F31.9 Bipolar disorder, unspecified; I25.10 Atherosclerotic heart disease of native coronary artery without angina pectoris; J44.89 Other specified chronic obstructive pulmonary disease; Z96.641 Presence of right artificial hip joint; M75.52 Bursitis of left shoulder; Z79.82 Long term (current) use of aspirin; Z82.49 Family history of ischemic heart disease and other diseases of the circulatory system; Z83.3 Family history of diabetes mellitus; I25.2 Old myocardial infarction; Z86.73 Personal history of transient ischemic attack (TIA), and cerebral infarction without residual deficits; Z87.891 Personal history of nicotine dependence; Z79.899 Other long term (current) drug therapy; Z98.61 Coronary angioplasty status; Z88.8 Allergy status to other drugs, medicaments and biological substances
CPT/HCPCS: 36415; 71045; 73030; 78582; 80053; 80061; 81001; 82962; 83735; 83880; 84484; 85025; 85610; 85730; 87040; 87086; 93005; 93306; 94640; G0378; J3490

== ENCOUNTER 2023-02-09 05:51 | Emergency (ER) | payer MEDICARE, MEDICAID ==
[~2023-02-09] VITALS: Ht 165.1 cm; Wt 106.9 kg
[~2023-02-09 05:51] MED LIST changes: -CEFA-122 PO
[2023-02-09] MEDS ORDERED: PROMETHAZINE HCL 25 MG/ML 1ML IM ONE (07:30)
[2023-02-09] MEDS ORDERED: MORPHINE SULFATE INJ 2 MG/ml SYRG IM ONE (07:30)
[2023-02-09 08:34] VITALS: O2SAT 96
[2023-02-09 08:35] VITALS: BP 133/78; PULSE 87; RESP 19
== END 2023-02-09 08:43 | disposition home or self-care (01) ==
LOC: ER 05:51
DX: S46.092D Other injury of muscle(s) and tendon(s) of the rotator cuff of left shoulder, subsequent encounter (principal); E11.9 Type 2 diabetes mellitus without complications; I10 Essential (primary) hypertension; Z90.710 Acquired absence of both cervix and uterus; Z88.6 Allergy status to analgesic agent; X58.XXXD Exposure to other specified factors, subsequent encounter
CPT/HCPCS: 96372; 99284; J2270; J2550

== ENCOUNTER 2023-03-19 21:39 | Inpatient (IN) | payer MEDICARE, MEDICAID ==
[~2023-03-19] VITALS: Ht 153.7 cm; Wt 66.1 kg
[~2023-03-19 21:39] MED LIST changes: +CEFA-122 PO
[2023-03-19] MEDS ORDERED: NITROGLYCERIN 0.4 MG SL TAB SL PRN (23:30)
[2023-03-19] MEDS ORDERED: MORPHINE SULFATE INJ 2 MG/ml SYRG IV PRN (23:30)
[2023-03-19] MEDS ORDERED: ALBUTEROL SULF 2.5 MG/0.5ML(0.5%) NEB SOLN NEB PRN (23:30)
[2023-03-19] MEDS ORDERED: ALBUTEROL SULF HFA 90MCG INH 200DOSE IN PRN (23:30)
[2023-03-19] MEDS ORDERED: DOCUSATE SOD 100 MG CAP PO PRN (23:30)
[2023-03-19] MEDS ORDERED: ONDANSETRON HCL 4 MG/2 ML VIAL IV PRN (23:45)
[2023-03-19] MEDS ORDERED: MAALOX PLUS or MAALOX 30 ML PO PRN (23:45)
[2023-03-19] MEDS ORDERED: HYDROmorphone HCL 2 MG/ML VL/or syr IV PRN (23:45)
[2023-03-20] VITALS (9 sets, daily range): BP systolic 111–170; BP diastolic 65–78; PULSE 53–61; RESP 14–20; TEMP 97.5–98.3; O2SAT 95–99
[2023-03-20] MEDS: SOD CHL 0.45% 1,000 ML IV SCH ×2 (00:44→19:41)
[2023-03-20] MEDS: HYDROmorphone HCL 2 MG/ML VL/or syr IV PRN ×2 (00:46→11:02)
[2023-03-20 00:48] LABS: Basophils # (auto) 0.1 10 ^3/uL (0-0.2); Eosinophils # (auto) 0.6 10 ^3/uL (0-0.8); Lymphocytes # (auto) 2.1 10 ^3/uL (0.4-5.4); Mean Corpuscular Hemoglobin 24.5 pg (28.0-32.0); Mean Corpuscular Volume 79.2 fL (80.0-100.0); Monocytes # (auto) 0.8 10 ^3/uL (0-1.3); Monocytes % (auto) 11.8 % (0.0-12.0)
[2023-03-20 00:50] LABS: Basophils % (auto) 0.9 % (0.0-2.0); Eosinophils % (auto) 9.5 % (0.0-7.0); Lymphocytes % (auto) 32.5 % (10.0-50.0); Mean Corpuscular Hgb Conc. 30.9 g/dL (32.0-36.0); Neutrophils % (auto) 45.3 % (37.0-80.0); Red Blood Cells 4.92 10^6/uL (4.0-5.20); Red Cell Distribution Width 15.6 % (11.8-14.3); White Blood Cell 6.6 10^3/uL (4.4-10.8)
[2023-03-20 01:02] LABS: Alanine Aminotransferase 15 U/L (7-40); Albumin 4.3 g/dL (3.2-4.8); Alkaline Phosphatase 121 U/L (46-116); Anion Gap 4 (5-15); Aspartate Aminotransferase 10 U/L (13-40); BUN/Creatinine Ratio 17.6 (10.0-20.0); Bilirubin, Total 0.2 mg/dL (0.2-1.0); Blood Urea Nitrogen 18 mg/dL (9-23); Calcium 9.2 mg/dL (8.7-10.4); Carbon Dioxide 27 mmol/L (20-30); Chloride 106 mmol/L (98-107); Glucose 136 mg/dL (74-106); Phosphorus 3.1 mg/dL (2.4-5.1); Potassium 3.8 mmol/L (3.5-5.1); Sodium 137 mmol/L (136-145)
[2023-03-20 01:03] LABS: Total Protein 7.4 g/dL (5.7-8.2)
[2023-03-20] MEDS: KETOROLAC TROMETH 30 MG/ML 1ML VIAL IV SCH ×3 (06:09→21:09)
[2023-03-20] MEDS ORDERED: PANTOPRAZOLE 40 MG TAB PO SCH (07:00)
[2023-03-20 07:03] LABS: Eosinophils # (auto) 0.7 10 ^3/uL (0-0.8); Red Cell Distribution Width 15.4 % (11.8-14.3)
[2023-03-20 07:05] LABS: Basophils # (auto) 0.1 10 ^3/uL (0-0.2); Basophils % (auto) 0.9 % (0.0-2.0); Eosinophils % (auto) 9.3 % (0.0-7.0); Hematocrit 37.3 % (36.0-46.0); Hemoglobin 11.9 g/dL (12.2-16.2); Lymphocytes # (auto) 2.3 10 ^3/uL (0.4-5.4); Mean Corpuscular Hemoglobin 24.9 pg (28.0-32.0); Mean Corpuscular Hgb Conc. 31.9 g/dL (32.0-36.0); Mean Corpuscular Volume 78.1 fL (80.0-100.0); Monocytes # (auto) 0.9 10 ^3/uL (0-1.3); Monocytes % (auto) 12.6 % (0.0-12.0); Neutrophils # (auto) 3.1 10 ^3/uL (1.6-8.6); Neutrophils % (auto) 44.2 % (37.0-80.0); Nucleated Red Blood Cells % 0.1 %; Red Blood Cells 4.77 10^6/uL (4.0-5.20); White Blood Cell 7.1 10^3/uL (4.4-10.8)
[2023-03-20 07:06] LABS: Alanine Aminotransferase 12 U/L (7-40); Albumin 4.1 g/dL (3.2-4.8); Alkaline Phosphatase 114 U/L (46-116); Anion Gap 5 (5-15); Aspartate Aminotransferase 9 U/L (13-40); BUN/Creatinine Ratio 23.5 (10.0-20.0); Blood Urea Nitrogen 19 mg/dL (9-23); Calcium 8.9 mg/dL (8.7-10.4); Carbon Dioxide 27 mmol/L (20-30); Chloride 106 mmol/L (98-107); Glucose 112 mg/dL (74-106); Magnesium 1.9 mg/dL (1.6-2.6); Potassium 4.1 mmol/L (3.5-5.1); Sodium 138 mmol/L (136-145)
[2023-03-20 07:07] LABS: Bilirubin, Total 0.3 mg/dL (0.2-1.0); Phosphorus 2.7 mg/dL (2.4-5.1); Total Protein 7.1 g/dL (5.7-8.2)
[2023-03-20] MEDS: CLOPIDOGREL BISULFATE 75 MG TAB PO SCH (09:48)
[2023-03-20] MEDS: CITALOPRAM HYDROBR 20 MG TAB PO SCH (09:49)
[2023-03-20] MEDS: LORATADINE 10 MG TAB GT SCH (09:49)
[2023-03-20] MEDS: METOPROLOL SUCCINATE XL 50 MG TAB PO SCH (09:52)
[2023-03-20] MEDS: EMPAGLIFLOZIN 10 MG TAB PO SCH (09:52)
[2023-03-20] MEDS: PANTOPRAZOLE 40 MG/10 ML VIAL INJ IV SCH ×2 (09:53→21:09)
[2023-03-20] MEDS: ARIPIPRAZOLE 20 MG PO SCH (10:00)
[2023-03-20] MEDS: DexAMETHasone SOD PHOS 10MG/1ML VIAL INJ IV SCH (11:03)
[2023-03-20 20:08] LABS: Rapid Influenza A Negative (Negative); Rapid Influenza B Negative (Negative)
[2023-03-20 20:09] LABS: COVID19 ANTIGEN SOFIA FIA NEGATIVE (NEGATIVE); Respiratory Syncytial Virus Ag Negative
[2023-03-20] MEDS: ATORVASTATIN 20 MG TAB PO SCH (21:09)
[2023-03-20] MEDS: GABAPENTIN 100 MG CAP PO SCH (21:10)
[2023-03-21] VITALS (10 sets, daily range): BP systolic 143–189; BP diastolic 49–100; PULSE 50–72; RESP 17–20; TEMP 97.5–100.8; O2SAT 95–100
[2023-03-21] MEDS: KETOROLAC TROMETH 30 MG/ML 1ML VIAL IV SCH ×3 (05:30→21:23)
[2023-03-21 05:41] LABS: Urine Bacteria MANY /hpf (None Seen); Urine Blood 1+ /uL (Negative); Urine Clarity HAZY (Clear); Urine Color Yellow (Yellow); Urine Mucus FEW (None Seen); Urine Protein, UAD TRACE (Negative); Urine Specific Gravity 1.027 (1.001-1.035); Urine Urobilinogen Normal (Negative); Urine WBC 350 /hpf (0 - 5); Urine WBC Clumps PRESENT /hpf (None Seen)
[2023-03-21] MEDS: PANTOPRAZOLE 40 MG/10 ML VIAL INJ IV SCH ×2 (09:35→21:23)
[2023-03-21] MEDS: DexAMETHasone SOD PHOS 10MG/1ML VIAL INJ IV SCH (09:35)
[2023-03-21] MEDS: CITALOPRAM HYDROBR 20 MG TAB PO SCH (09:36)
[2023-03-21] MEDS: LORATADINE 10 MG TAB GT SCH (09:36)
[2023-03-21] MEDS: METOPROLOL SUCCINATE XL 50 MG TAB PO SCH (09:36)
[2023-03-21] MEDS: EMPAGLIFLOZIN 10 MG TAB PO SCH (09:36)
[2023-03-21] MEDS: CLOPIDOGREL BISULFATE 75 MG TAB PO SCH (09:36)
[2023-03-21] MEDS: cefTRIAXone 1GM/50ML D5W 50 ML IV SCH (09:37)
[2023-03-21] MEDS: ARIPIPRAZOLE 20 MG PO SCH (10:00)
[2023-03-21] MEDS: HYDROmorphone HCL 2 MG/ML VL/or syr IV PRN (10:09)
[2023-03-21] MEDS: SOD CHL 0.45% 1,000 ML IV SCH ×2 (15:30→19:57)
[2023-03-21] MEDS: GABAPENTIN 100 MG CAP PO SCH (21:22)
[2023-03-21] MEDS: ATORVASTATIN 20 MG TAB PO SCH (21:23)
[2023-03-21] MEDS: ALBUTEROL SULF 2.5 MG/0.5ML(0.5%) NEB SOLN NEB SCH (21:52)
[2023-03-22] VITALS (11 sets, daily range): BP systolic 104–177; BP diastolic 64–83; PULSE 52–85; RESP 15–20; TEMP 97.2–98.5; O2SAT 95–99
[2023-03-22] MEDS: HYDROmorphone HCL 2 MG/ML VL/or syr IV PRN ×2 (05:12→10:10)
[2023-03-22] MEDS: KETOROLAC TROMETH 30 MG/ML 1ML VIAL IV SCH ×3 (06:56→21:08)
[2023-03-22] MEDS: ALBUTEROL SULF 2.5 MG/0.5ML(0.5%) NEB SOLN NEB SCH ×2 (08:39→22:21)
[2023-03-22] MEDS: LORATADINE 10 MG TAB GT SCH (08:43)
[2023-03-22] MEDS: PANTOPRAZOLE 40 MG/10 ML VIAL INJ IV SCH ×2 (08:43→21:08)
[2023-03-22] MEDS: cefTRIAXone 1GM/50ML D5W 50 ML IV SCH (08:43)
[2023-03-22] MEDS: EMPAGLIFLOZIN 10 MG TAB PO SCH (08:43)
[2023-03-22] MEDS: CITALOPRAM HYDROBR 20 MG TAB PO SCH (08:43)
[2023-03-22] MEDS: CLOPIDOGREL BISULFATE 75 MG TAB PO SCH (08:43)
[2023-03-22] MEDS: METOPROLOL SUCCINATE XL 50 MG TAB PO SCH (08:49)
[2023-03-22] MEDS ORDERED: cloNIDine HCL 0.1 MG TAB PO ONE (18:15)
[2023-03-22] MEDS: SOD CHL 0.45% 1,000 ML IV SCH ×2 (20:12→21:08)
[2023-03-22] MEDS: ATORVASTATIN 20 MG TAB PO SCH (21:07)
[2023-03-22] MEDS: GABAPENTIN 100 MG CAP PO SCH (21:07)
[2023-03-22] MEDS ORDERED: VALSARTAN 80 MG TAB PO SCH (22:00)
[2023-03-23] VITALS (7 sets, daily range): BP systolic 143–173; BP diastolic 73–87; PULSE 52–91; RESP 20; TEMP 97.6–98.3; O2SAT 98–99
[2023-03-23] MEDS: ALBUTEROL SULF 2.5 MG/0.5ML(0.5%) NEB SOLN NEB SCH (05:55)
[2023-03-23] MEDS: KETOROLAC TROMETH 30 MG/ML 1ML VIAL IV SCH ×2 (05:58→14:00)
[2023-03-23] MEDS: CITALOPRAM HYDROBR 20 MG TAB PO SCH (09:57)
[2023-03-23] MEDS: cefTRIAXone 1GM/50ML D5W 50 ML IV SCH (09:57)
[2023-03-23] MEDS: PANTOPRAZOLE 40 MG/10 ML VIAL INJ IV SCH (09:59)
[2023-03-23] MEDS: CLOPIDOGREL BISULFATE 75 MG TAB PO SCH (09:59)
[2023-03-23] MEDS: EMPAGLIFLOZIN 10 MG TAB PO SCH (09:59)
[2023-03-23] MEDS: METOPROLOL SUCCINATE XL 50 MG TAB PO SCH (09:59)
[2023-03-23] MEDS ORDERED: LORATADINE 10 MG TAB PO SCH (10:00)
[2023-03-23] MEDS ORDERED: cloNIDine HCL 0.1 MG TAB PO ONE (10:00)
[2023-03-23] MEDS: HYDROmorphone HCL 2 MG/ML VL/or syr IV PRN (11:13)
== END 2023-03-23 15:43 | disposition home or self-care (01) | DRG 689 ==
LOC: TELE-CENTR 21:57 → UNDOADMIN 21:57 → TELE-CENTR 22:15
PROVIDERS: ADMIT Specialist; ATTEND Specialist
DX: N10 Acute pyelonephritis (principal); I21.A1 Myocardial infarction type 2; J44.1 Chronic obstructive pulmonary disease with (acute) exacerbation; Z68.41 Body mass index [BMI] 40.0-44.9, adult; N12 Tubulo-interstitial nephritis, not specified as acute or chronic; E11.9 Type 2 diabetes mellitus without complications; I16.0 Hypertensive urgency; E86.1 Hypovolemia; E66.01 Morbid (severe) obesity due to excess calories; L30.9 Dermatitis, unspecified; M79.7 Fibromyalgia; R09.02 Hypoxemia; K21.9 Gastro-esophageal reflux disease without esophagitis; Z96.642 Presence of left artificial hip joint; E88.819 Insulin resistance, unspecified; E78.00 Pure hypercholesterolemia, unspecified; J22 Unspecified acute lower respiratory infection; M17.0 Bilateral primary osteoarthritis of knee; Z83.3 Family history of diabetes mellitus; Z86.73 Personal history of transient ischemic attack (TIA), and cerebral infarction without residual deficits; Z87.440 Personal history of urinary (tract) infections; Z87.891 Personal history of nicotine dependence; Z82.49 Family history of ischemic heart disease and other diseases of the circulatory system; Z91.119 Patient's noncompliance with dietary regimen due to unspecified reason; Z98.61 Coronary angioplasty status; Z79.899 Other long term (current) drug therapy; E11.65 Type 2 diabetes mellitus with hyperglycemia; M16.0 Bilateral primary osteoarthritis of hip; I45.10 Unspecified right bundle-branch block
CPT/HCPCS: 36415; 71045; 80053; 81001; 83735; 84100; 84484; 85025; 87040; 87086; 87426; 87804; 87807; 94640; C9113; G0378; J1100; J1885

== ENCOUNTER 2023-04-19 14:21 | Inpatient (IN) | payer MEDICARE, MEDICAID ==
[~2023-04-19] VITALS: Ht 30.5 cm; Wt 111.8 kg
[~2023-04-19 14:21] MED LIST changes: -CEFA-122 PO; -OXYC30TA50 PO
[2023-04-19] MEDS ORDERED: MORPHINE SULFATE INJ 2 MG/ml SYRG IV PRN (16:15)
[2023-04-19] MEDS ORDERED: KETOROLAC TROMETH 30 MG/ML 1ML VIAL IV PRN (16:15)
[2023-04-19] MEDS ORDERED: NITROGLYCERIN 0.4 MG SL TAB SL PRN (16:15)
[2023-04-19] MEDS ORDERED: MAALOX PLUS or MAALOX 30 ML PO PRN (16:15)
[2023-04-19] MEDS ORDERED: DIPHENOXYLATE W/ATROPINE 2.5 MG TAB PO PRN (16:15)
[2023-04-19 16:28] VITALS: RESP 16
[2023-04-19 16:39] VITALS: BP 131/47; PULSE 93; RESP 20; TEMP 99.2; O2SAT 96
[2023-04-19 17:30] LABS: Basophils # (auto) 0 10 ^3/uL (0-0.2); Eosinophils # (auto) 1.1 10 ^3/uL (0-0.8); Hemoglobin 11.7 g/dL (12.2-16.2); Lymphocytes # (auto) 1.9 10 ^3/uL (0.4-5.4); Monocytes # (auto) 1.1 10 ^3/uL (0-1.3); Neutrophils # (auto) 6.3 10 ^3/uL (1.6-8.6); White Blood Cell 10.5 10^3/uL (4.4-10.8)
[2023-04-19 17:32] LABS: Basophils % (auto) 0.4 % (0.0-2.0); Eosinophils % (auto) 10.7 % (0.0-7.0); Hematocrit 37.2 % (36.0-46.0); Mean Corpuscular Hemoglobin 24.4 pg (28.0-32.0); Mean Corpuscular Hgb Conc. 31.4 g/dL (32.0-36.0); Mean Corpuscular Volume 77.7 fL (80.0-100.0); Monocytes % (auto) 10.8 % (0.0-12.0); Neutrophils % (auto) 60.1 % (37.0-80.0); Red Blood Cells 4.78 10^6/uL (4.0-5.20)
[2023-04-19 17:45] LABS: Alanine Aminotransferase 12 U/L (7-40); Albumin 4.2 g/dL (3.2-4.8); Alkaline Phosphatase 99 U/L (46-116); Anion Gap 5 (5-15); Aspartate Aminotransferase 9 U/L (13-40); BUN/Creatinine Ratio 17.1 (10.0-20.0); Bilirubin, Total 0.3 mg/dL (0.2-1.0); Blood Urea Nitrogen 13 mg/dL (9-23); Calcium 8.8 mg/dL (8.7-10.4); Carbon Dioxide 26 mmol/L (20-30); Chloride 104 mmol/L (98-107); Glucose 126 mg/dL (74-106); Potassium 3.2 mmol/L (3.5-5.1); Sodium 135 mmol/L (136-145); Total Protein 7.4 g/dL (5.7-8.2)
[2023-04-19] MEDS: LACTATED RINGER'S 1,000 ML IV SCH (17:46)
[2023-04-19] MEDS: CLOPIDOGREL BISULFATE 75 MG TAB PO SCH (18:05)
[2023-04-19 20:00] VITALS: PULSE 85
[2023-04-19 22:00] VITALS: BP 134/61; PULSE 84; RESP 20; TEMP 98.3; O2SAT 94
[2023-04-19] MEDS ORDERED: ATORVASTATIN 20 MG TAB PO SCH (22:00)
[2023-04-19 22:37] LABS: Urine Bacteria FEW /hpf (None Seen); Urine Blood Negative /uL (Negative); Urine Clarity Clear (Clear); Urine Color Yellow (Yellow); Urine Mucus FEW (None Seen); Urine Protein, UAD TRACE (Negative); Urine Specific Gravity 1.025 (1.001-1.035); Urine Urobilinogen Normal (Negative); Urine WBC 16 /hpf (0 - 5); Urine pH 5.5 (5.0-8.0)
[2023-04-20] VITALS (7 sets, daily range): BP systolic 128–157; BP diastolic 51–75; PULSE 71–93; RESP 16–19; TEMP 97.9–98.5; O2SAT 95–100
[2023-04-20] MEDS ORDERED: HYDROmorphone HCL 2 MG/ML VL/or syr IV PRN
[2023-04-20] MEDS: HYDROmorphone HCL 2 MG/ML VL/or syr IV PRN ×5 (00:31→22:47)
[2023-04-20] MEDS: ONDANSETRON HCL 4 MG/2 ML VIAL IV PRN ×2 (02:59→10:49)
[2023-04-20] MEDS: LACTATED RINGER'S 1,000 ML IV SCH ×2 (05:12→17:39)
[2023-04-20] MEDS ORDERED: POTASSIUM CHL 20MEQ/100ML 100 ML IV SCH (06:00)
[2023-04-20] MEDS: PANTOPRAZOLE 40 MG/10 ML VIAL INJ IV SCH (09:05)
[2023-04-20] MEDS: VALSARTAN 80 MG TAB PO SCH (09:11)
[2023-04-20] MEDS ORDERED: POTASSIUM CHL 20 Meq TABLET PO ONE (10:30)
[2023-04-20] MEDS: POTASSIUM CHL 20 Meq TABLET PO SCH ×2 (13:45→21:21)
[2023-04-20] MEDS: CLOPIDOGREL BISULFATE 75 MG TAB PO SCH (17:39)
[2023-04-20] MEDS: KETOROLAC TROMETH 30 MG/ML 1ML VIAL IV PRN (18:10)
[2023-04-20] MEDS: SULFAMETH-TRIMETH 80/16MG-ML 10 ML in D5W 5% 250 ML IV SCH ×2 (20:30→22:00)
[2023-04-21 05:00] VITALS: BP 158/77; PULSE 72; RESP 19; TEMP 98.4; O2SAT 97
[2023-04-21] MEDS: LACTATED RINGER'S 1,000 ML IV SCH ×2 (05:08→18:15)
[2023-04-21] MEDS: KETOROLAC TROMETH 30 MG/ML 1ML VIAL IV PRN ×2 (05:13→13:06)
[2023-04-21 08:00] VITALS: PULSE 86
[2023-04-21 09:00] VITALS: BP 141/83; PULSE 90; RESP 14; TEMP 98.6; O2SAT 96
[2023-04-21] MEDS: PANTOPRAZOLE 40 MG/10 ML VIAL INJ IV SCH (09:42)
[2023-04-21] MEDS: HYDROmorphone HCL 2 MG/ML VL/or syr IV PRN ×2 (09:42→18:31)
[2023-04-21] MEDS: VALSARTAN 80 MG TAB PO SCH (09:42)
[2023-04-21] MEDS: SULFAMETH-TRIMETH 80/16MG-ML 10 ML in D5W 5% 250 ML IV SCH ×2 (10:00→22:00)
[2023-04-21 13:00] VITALS: BP 161/84; PULSE 81; RESP 14; TEMP 98.4; O2SAT 97
[2023-04-21 17:00] VITALS: BP 157/82; PULSE 73; RESP 8; TEMP 97.6; O2SAT 97
[2023-04-21] MEDS: CLOPIDOGREL BISULFATE 75 MG TAB PO SCH (18:30)
[2023-04-21 20:00] VITALS: PULSE 82
[2023-04-21] MEDS ORDERED: LACTATED RINGER'S 1,000 ML IV SCH (21:15)
[2023-04-21 21:59] LABS: Chloride 109 mmol/L (98-107); Potassium 3.9 mmol/L (3.5-5.1); Sodium 138 mmol/L (136-145)
[2023-04-21 22:00] LABS: Anion Gap 3 (5-15); Carbon Dioxide 26 mmol/L (20-30)
[2023-04-21 22:01] LABS: Calcium 8.5 mg/dL (8.7-10.4)
[2023-04-21 22:05] LABS: Glucose 101 mg/dL (74-106)
[2023-04-21 22:06] LABS: BUN/Creatinine Ratio 13.8 (10.0-20.0); Blood Urea Nitrogen 9 mg/dL (9-23); Magnesium 1.5 mg/dL (1.6-2.6)
[2023-04-21 22:08] LABS: Phosphorus 2.7 mg/dL (2.4-5.1)
[2023-04-21] MEDS ORDERED: MAGNESIUM SULFATE 1GM/100ML 100 ML IV PRN (23:15)
[2023-04-22] MEDS: KETOROLAC TROMETH 30 MG/ML 1ML VIAL IV PRN
[2023-04-22 05:00] VITALS: BP 146/73; PULSE 75; RESP 19; TEMP 98.4; O2SAT 96
[2023-04-22] MEDS: HYDROmorphone HCL 2 MG/ML VL/or syr IV PRN ×2 (06:18→13:37)
[2023-04-22 06:20] LABS: Alanine Aminotransferase 16 U/L (7-40); Albumin 3.3 g/dL (3.2-4.8); Alkaline Phosphatase 77 U/L (46-116); Anion Gap 6 (5-15); Aspartate Aminotransferase 14 U/L (13-40); Bilirubin, Total 0.3 mg/dL (0.2-1.0); Blood Urea Nitrogen 8 mg/dL (9-23); Calcium 8.6 mg/dL (8.7-10.4); Carbon Dioxide 27 mmol/L (20-30); Chloride 109 mmol/L (98-107); Glucose 87 mg/dL (74-106); Potassium 3.8 mmol/L (3.5-5.1); Sodium 142 mmol/L (136-145); Total Protein 5.8 g/dL (5.7-8.2)
[2023-04-22] MEDS: ONDANSETRON HCL 4 MG/2 ML VIAL IV PRN (06:27)
[2023-04-22 08:00] VITALS: PULSE 66
[2023-04-22 09:00] VITALS: BP 153/88; PULSE 86; RESP 20; TEMP 98.3; O2SAT 98
[2023-04-22] MEDS: SULFAMETH-TRIMETH 80/16MG-ML 10 ML in D5W 5% 250 ML IV SCH (10:00)
[2023-04-22] MEDS: VALSARTAN 80 MG TAB PO SCH (10:04)
[2023-04-22] MEDS: PANTOPRAZOLE 40 MG/10 ML VIAL INJ IV SCH (10:04)
[2023-04-22] MEDS ORDERED: PRED1PAK9 PO ×2 (10:49)
[2023-04-22] MEDS ORDERED: METF750T54 PO (10:59)
[2023-04-22] MEDS ORDERED: cloNIDine HCL 0.1 MG TAB PO PRN (11:15)
[2023-04-22 13:00] VITALS: BP 142/69; PULSE 76; RESP 17; TEMP 98.3; O2SAT 98
[2023-04-22 14:07] VITALS: BP 142/69; PULSE 89; RESP 18
== END 2023-04-22 17:26 | disposition home or self-care (01) | DRG 556 ==
LOC: UNDOADMIN 15:51 → TELE-WESTW 15:51 → TELE-CENTR 04-21 21:15 → TELE-WESTW 04-21 23:11 → TELE-CENTR 04-21 23:20
PROVIDERS: ADMIT Specialist; ATTEND Specialist
DX: M79.7 Fibromyalgia (principal); N39.0 Urinary tract infection, site not specified; Z68.41 Body mass index [BMI] 40.0-44.9, adult; K52.9 Noninfective gastroenteritis and colitis, unspecified; E66.01 Morbid (severe) obesity due to excess calories; E78.00 Pure hypercholesterolemia, unspecified; E83.42 Hypomagnesemia; E88.819 Insulin resistance, unspecified; F31.9 Bipolar disorder, unspecified; J06.9 Acute upper respiratory infection, unspecified; M16.0 Bilateral primary osteoarthritis of hip; M17.0 Bilateral primary osteoarthritis of knee; R09.02 Hypoxemia; J44.9 Chronic obstructive pulmonary disease, unspecified; I10 Essential (primary) hypertension; E87.6 Hypokalemia; E86.1 Hypovolemia; E11.9 Type 2 diabetes mellitus without complications; I25.10 Atherosclerotic heart disease of native coronary artery without angina pectoris; Z96.642 Presence of left artificial hip joint; K21.9 Gastro-esophageal reflux disease without esophagitis; Z87.440 Personal history of urinary (tract) infections; Z87.891 Personal history of nicotine dependence; Z88.8 Allergy status to other drugs, medicaments and biological substances; Z79.899 Other long term (current) drug therapy; Z79.84 Long term (current) use of oral hypoglycemic drugs; Z91.119 Patient's noncompliance with dietary regimen due to unspecified reason; Z91.148 Patient's other noncompliance with medication regimen for other reason; Z86.73 Personal history of transient ischemic attack (TIA), and cerebral infarction without residual deficits; Z90.710 Acquired absence of both cervix and uterus
CPT/HCPCS: 36415; 80048; 80053; 81001; 83735; 84100; 85025; 87045; 87086; 87427; C9113; G0378; J1885; J2405; J3480; J3490; J7060

== ENCOUNTER 2023-05-12 09:56 | Inpatient (IN) | payer MEDICARE, MEDICAID ==
[~2023-05-12] VITALS: Ht 163.8 cm; Wt 116.4 kg
[2023-05-12] VITALS (10 sets, daily range): BP systolic 154–167; BP diastolic 62–83; PULSE 60–86; RESP 18–20; TEMP 98.4–99.5; O2SAT 95–100
[2023-05-12] MEDS ORDERED: NITROGLYCERIN 0.4 MG SL TAB SL PRN (12:15)
[2023-05-12] MEDS ORDERED: ALBUTEROL SULF HFA 90MCG INH 200DOSE IN PRN (12:15)
[2023-05-12] MEDS ORDERED: DOCUSATE SOD 100 MG CAP PO PRN (12:15)
[2023-05-12] MEDS ORDERED: MORPHINE SULFATE INJ 2 MG/ml SYRG IV PRN (12:15)
[2023-05-12] MEDS ORDERED: KETOROLAC TROMETH 30 MG/ML 1ML VIAL IV PRN (13:00)
[2023-05-12 13:16] LABS: Basophils # (auto) 0.1 10 ^3/uL (0-0.2); Hemoglobin 10.8 g/dL (12.2-16.2); Lymphocytes # (auto) 2.3 10 ^3/uL (0.4-5.4); Mean Corpuscular Hgb Conc. 30.4 g/dL (32.0-36.0); Red Blood Cells 4.57 10^6/uL (4.0-5.20)
[2023-05-12 13:19] LABS: Basophils % (auto) 0.7 % (0.0-2.0); Eosinophils # (auto) 0.9 10 ^3/uL (0-0.8); Eosinophils % (auto) 8.1 % (0.0-7.0); Hematocrit 35.4 % (36.0-46.0); Lymphocytes % (auto) 20.6 % (10.0-50.0); Mean Corpuscular Hemoglobin 23.6 pg (28.0-32.0); Mean Corpuscular Volume 77.5 fL (80.0-100.0); Monocytes # (auto) 1.5 10 ^3/uL (0-1.3); Monocytes % (auto) 13.3 % (0.0-12.0); Neutrophils # (auto) 6.5 10 ^3/uL (1.6-8.6); Neutrophils % (auto) 57.3 % (37.0-80.0); Red Cell Distribution Width 16.7 % (11.8-14.3); White Blood Cell 11.4 10^3/uL (4.4-10.8)
[2023-05-12 13:29] LABS: INR 1.04 (0.9-1.15); Prothrombin Time 10.9 sec (9.3-11.8)
[2023-05-12 13:33] LABS: Alanine Aminotransferase 13 U/L (7-40); Albumin 3.7 g/dL (3.2-4.8); Alkaline Phosphatase 78 U/L (46-116); Anion Gap 8 (5-15); Aspartate Aminotransferase 13 U/L (13-40); BUN/Creatinine Ratio 12.3 (10.0-20.0); Bilirubin, Total 0.3 mg/dL (0.2-1.0); Blood Urea Nitrogen 8 mg/dL (9-23); CRP High Sensitivity 0.42 mg/dL (<1.0); Carbon Dioxide 27 mmol/L (20-30); Chloride 105 mmol/L (98-107); Glucose 105 mg/dL (74-106); Potassium 3.3 mmol/L (3.5-5.1); Sodium 140 mmol/L (136-145); Total Protein 6.5 g/dL (5.7-8.2)
[2023-05-12] MEDS: SOD CHL 0.45% 1,000 ML IV SCH (14:02)
[2023-05-12] MEDS: HYDROmorphone HCL 2 MG/ML VL/or syr IV PRN ×2 (14:02→21:45)
[2023-05-12] MEDS ORDERED: METF750T54 PO (14:07)
[2023-05-12] MEDS: ALBUTEROL SULF 2.5 MG/0.5ML(0.5%) NEB SOLN NEB PRN (14:42)
[2023-05-12] MEDS: ENOXAPARIN SOD 40 MG/0.4 ML SYRINGE SC SCH (14:53)
[2023-05-12] MEDS: PANTOPRAZOLE 40 MG/10 ML VIAL INJ IV SCH (21:45)
[2023-05-12] MEDS: GABAPENTIN 100 MG CAP PO SCH (21:45)
[2023-05-12] MEDS: cloNIDine HCL 0.1 MG TAB PO ONE (23:42)
[2023-05-13] VITALS (13 sets, daily range): BP systolic 149–174; BP diastolic 73–128; PULSE 65–95; RESP 15–22; TEMP 97.3–98.8; O2SAT 93–100
[2023-05-13] MEDS ORDERED: PANTOPRAZOLE 40 MG TAB PO SCH (07:00)
[2023-05-13 07:02] LABS: LDL Cholesterol 50 mg/dL (< 100); Triglycerides 96 mg/dL (< 150)
[2023-05-13 07:03] LABS: Cholesterol 104 mg/dL (< 200)
[2023-05-13 07:04] LABS: HDL Cholesterol 37 mg/dL (40-59)
[2023-05-13] MEDS: EMPAGLIFLOZIN 10 MG TAB PO SCH (09:40)
[2023-05-13] MEDS: CLOPIDOGREL BISULFATE 75 MG TAB PO SCH (09:40)
[2023-05-13] MEDS: LORATADINE 10 MG TAB PO SCH (09:40)
[2023-05-13] MEDS: METOPROLOL SUCCINATE XL 50 MG TAB PO SCH (09:41)
[2023-05-13] MEDS: cefTRIAXone 2GM/50ML D5W 50 ML IV SCH (11:10)
[2023-05-13] MEDS: cloNIDine HCL 0.1 MG TAB PO ONE (23:54)
[2023-05-14] VITALS (8 sets, daily range): BP systolic 146–196; BP diastolic 74–91; PULSE 66–87; RESP 18–28; TEMP 97.5–98.6; O2SAT 97–100
[2023-05-14] MEDS: OXYCODONE W/ ACETAMINOPHEN 5/325MG TABLET PO PRN (08:51)
[2023-05-15] VITALS (14 sets, daily range): BP systolic 116–166; BP diastolic 65–84; PULSE 60–88; RESP 17–26; TEMP 98.5–98.7; O2SAT 96–100
[2023-05-15] MEDS ORDERED: ARIP10TA29 PO (12:02)
[2023-05-15] MEDS ORDERED: OXY5T PO (12:14)
[2023-05-15] MEDS ORDERED: ASCO500T6 PO (12:24)
[2023-05-15] MEDS ORDERED: VALS160T53 PO (12:24)
[2023-05-15] MEDS ORDERED: MELO-335 PO (12:24)
[2023-05-15] MEDS ORDERED: DUPI1INJ SC (12:24)
[2023-05-15] MEDS: KETOROLAC TROMETH 30 MG/ML 1ML VIAL IV PRN (14:58)
[2023-05-15 15:15] LABS: Eosinophils # (auto) 0.7 10 ^3/uL (0-0.8); Hemoglobin 10.8 g/dL (12.2-16.2); Nucleated Red Blood Cells % 0.1 %
[2023-05-15 15:17] LABS: Basophils # (auto) 0.1 10 ^3/uL (0-0.2); Basophils % (auto) 0.7 % (0.0-2.0); Hematocrit 34.7 % (36.0-46.0); Lymphocytes # (auto) 1.5 10 ^3/uL (0.4-5.4); Lymphocytes % (auto) 15.1 % (10.0-50.0); Mean Corpuscular Hemoglobin 23.8 pg (28.0-32.0); Mean Corpuscular Hgb Conc. 31.2 g/dL (32.0-36.0); Mean Corpuscular Volume 76.2 fL (80.0-100.0); Monocytes # (auto) 1.4 10 ^3/uL (0-1.3); Monocytes % (auto) 14.2 % (0.0-12.0); Neutrophils # (auto) 6.1 10 ^3/uL (1.6-8.6); Red Blood Cells 4.55 10^6/uL (4.0-5.20); Red Cell Distribution Width 16.7 % (11.8-14.3); White Blood Cell 9.7 10^3/uL (4.4-10.8)
[2023-05-15 15:33] LABS: Alanine Aminotransferase 15 U/L (7-40); Albumin 3.5 g/dL (3.2-4.8); Alkaline Phosphatase 70 U/L (46-116); Anion Gap 6 (5-15); Aspartate Aminotransferase 26 U/L (13-40); BUN/Creatinine Ratio 20.7 (10.0-20.0); Bilirubin, Total 0.3 mg/dL (0.2-1.0); Blood Urea Nitrogen 12 mg/dL (9-23); Carbon Dioxide 26 mmol/L (20-30); Chloride 105 mmol/L (98-107); Glucose 87 mg/dL (74-106); Potassium 4.1 mmol/L (3.5-5.1); Sodium 137 mmol/L (136-145); Total Protein 6.2 g/dL (5.7-8.2)
[2023-05-15] MEDS: methylPREDNISolone SOD SUCC 40 MG/ML VL IV SCH (21:09)
[2023-05-16] VITALS (11 sets, daily range): BP systolic 116–173; BP diastolic 65–90; PULSE 67–82; RESP 18–22; TEMP 97.8–98.2; O2SAT 92–98
[2023-05-16 06:39] LABS: Basophils # (auto) 0 10 ^3/uL (0-0.2); Eosinophils # (auto) 0 10 ^3/uL (0-0.8); Eosinophils % (auto) 0.1 % (0.0-7.0); Mean Corpuscular Hemoglobin 24.1 pg (28.0-32.0); Monocytes # (auto) 0.2 10 ^3/uL (0-1.3); Neutrophils # (auto) 7.7 10 ^3/uL (1.6-8.6)
[2023-05-16 06:41] LABS: Basophils % (auto) 0.2 % (0.0-2.0); Hematocrit 33.8 % (36.0-46.0); Hemoglobin 10.7 g/dL (12.2-16.2); Lymphocytes # (auto) 0.6 10 ^3/uL (0.4-5.4); Lymphocytes % (auto) 7.4 % (10.0-50.0); Mean Corpuscular Hgb Conc. 31.6 g/dL (32.0-36.0); Mean Corpuscular Volume 76.2 fL (80.0-100.0); Monocytes % (auto) 2.7 % (0.0-12.0); Neutrophils % (auto) 89.6 % (37.0-80.0); Red Blood Cells 4.43 10^6/uL (4.0-5.20); Red Cell Distribution Width 16.4 % (11.8-14.3); White Blood Cell 8.5 10^3/uL (4.4-10.8)
[2023-05-16 06:46] LABS: Alanine Aminotransferase 18 U/L (7-40); Albumin 3.6 g/dL (3.2-4.8); Alkaline Phosphatase 76 U/L (46-116); Anion Gap 8 (5-15); Aspartate Aminotransferase 28 U/L (13-40); BUN/Creatinine Ratio 22.7 (10.0-20.0); Bilirubin, Total 0.2 mg/dL (0.2-1.0); Blood Urea Nitrogen 15 mg/dL (9-23); Calcium 9.3 mg/dL (8.5-10.1); Carbon Dioxide 25 mmol/L (20-30); Chloride 105 mmol/L (98-107); Cholesterol 121 mg/dL (< 200); Glucose 188 mg/dL (74-106); HDL Cholesterol 36 mg/dL (40-59); LDL Cholesterol 65 mg/dL (< 100); Potassium 4.4 mmol/L (3.5-5.1); Sodium 138 mmol/L (136-145); Total Protein 6.4 g/dL (5.7-8.2); Triglycerides 70 mg/dL (< 150)
[2023-05-16] MEDS: MAALOX PLUS or MAALOX 30 ML PO PRN (13:21)
[2023-05-17] VITALS (9 sets, daily range): BP systolic 121–145; BP diastolic 38–77; PULSE 54–78; RESP 15–22; TEMP 97.9–98.2; O2SAT 96–100
[2023-05-17] MEDS ORDERED: LORazepam 2MG/ML-1ML VIAL IV PRN
[2023-05-17] MEDS: cloNIDine HCL 0.1 MG TAB PO ONE (00:44)
[2023-05-17] MEDS ORDERED: KETOROLAC TROMETH 30 MG/ML 1ML VIAL IV PRN (11:15)
[2023-05-17] MEDS ORDERED: HYDROmorphone HCL 2 MG/ML VL/or syr IV PRN ×2 (12:00)
[2023-05-17] MEDS ORDERED: KETOROLAC TROMETH 30 MG/ML 1ML VIAL IV SCH (12:00)
[2023-05-17] MEDS: KETOROLAC TROMETH 30 MG/ML 1ML VIAL IV SCH (18:00)
[2023-05-17] MEDS ORDERED: ATORVASTATIN 20 MG TAB PO SCH (22:00)
== END 2023-05-17 19:05 | disposition home or self-care (01) | DRG 202 ==
LOC: TELE-WESTW 10:48
PROVIDERS: ADMIT Specialist; ATTEND Specialist
DX: J20.9 Acute bronchitis, unspecified (principal); E66.2 Morbid (severe) obesity with alveolar hypoventilation; I24.9 Acute ischemic heart disease, unspecified; Z68.41 Body mass index [BMI] 40.0-44.9, adult; N39.0 Urinary tract infection, site not specified; J44.0 Chronic obstructive pulmonary disease with (acute) lower respiratory infection; M79.7 Fibromyalgia; M16.0 Bilateral primary osteoarthritis of hip; M17.0 Bilateral primary osteoarthritis of knee; K52.9 Noninfective gastroenteritis and colitis, unspecified; E87.8 Other disorders of electrolyte and fluid balance, not elsewhere classified; E87.6 Hypokalemia; E86.1 Hypovolemia; E11.9 Type 2 diabetes mellitus without complications; E78.00 Pure hypercholesterolemia, unspecified; I10 Essential (primary) hypertension; I25.10 Atherosclerotic heart disease of native coronary artery without angina pectoris; E88.819 Insulin resistance, unspecified; R09.02 Hypoxemia; F31.9 Bipolar disorder, unspecified; M54.50 Low back pain, unspecified; R29.810 Facial weakness; K21.9 Gastro-esophageal reflux disease without esophagitis; Z96.642 Presence of left artificial hip joint; Z79.84 Long term (current) use of oral hypoglycemic drugs; Z91.119 Patient's noncompliance with dietary regimen due to unspecified reason; Z91.148 Patient's other noncompliance with medication regimen for other reason; I25.2 Old myocardial infarction; Z79.82 Long term (current) use of aspirin; Z79.899 Other long term (current) drug therapy; Z86.73 Personal history of transient ischemic attack (TIA), and cerebral infarction without residual deficits; Z87.440 Personal history of urinary (tract) infections; Z90.710 Acquired absence of both cervix and uterus; Z82.49 Family history of ischemic heart disease and other diseases of the circulatory system; Z95.5 Presence of coronary angioplasty implant and graft; Z83.3 Family history of diabetes mellitus; Z79.02 Long term (current) use of antithrombotics/antiplatelets
CPT/HCPCS: 36415; 70450; 70551; 71045; 73030; 73502; 80053; 80061; 82746; 83735; 84100; 84443; 84484; 85025; 85379; 85610; 85730; 86141; 93005; 93886; 94640; C9113; G0378; J1885

== ENCOUNTER 2023-07-12 17:06 | Inpatient (IN) | payer MEDICARE, MEDICAID ==
[~2023-07-12] VITALS: Ht 165.1 cm; Wt 107.3 kg
[~2023-07-12 17:06] MED LIST changes: +ARIP10TA29 PO; -ARIP1TAB7 PO; +ASCO500T6 PO; +DUPI1INJ SC; +MELO15TA29 PO; +OXY5T PO; -ROSU1TAB14 PO; +VALS160T53 PO
[2023-07-12 17:47] VITALS: PULSE 72; RESP 20; O2SAT 99
[2023-07-12] MEDS ORDERED: DOCUSATE SOD 100 MG CAP PO PRN (18:15)
[2023-07-12] MEDS ORDERED: MORPHINE SULFATE INJ 2 MG/ml SYRG IV PRN (18:15)
[2023-07-12] MEDS ORDERED: NITROGLYCERIN 0.4 MG SL TAB SL PRN (18:15)
[2023-07-12] MEDS ORDERED: ALBUTEROL SULF HFA 90MCG INH 200DOSE IN PRN (18:15)
[2023-07-12] MEDS ORDERED: MAALOX PLUS or MAALOX 30 ML PO PRN (18:30)
[2023-07-12 18:49] VITALS: BP 153/68; PULSE 72; RESP 20; TEMP 98.7; O2SAT 99
[2023-07-12 19:39] VITALS: BP 113/53; PULSE 60; RESP 18; TEMP 98.7; O2SAT 99
[2023-07-12 20:00] VITALS: PULSE 61; O2SAT 98
[2023-07-12 20:13] LABS: Basophils # (auto) 0.1 10 ^3/uL (0-0.2); Basophils % (auto) 1.4 % (0.0-2.0); Eosinophils # (auto) 0.3 10 ^3/uL (0-0.8); Hemoglobin 10.7 g/dL (12.2-16.2); Mean Corpuscular Hemoglobin 24.2 pg (28.0-32.0); Monocytes # (auto) 0.7 10 ^3/uL (0-1.3); Nucleated Red Blood Cells % 0.1 %
[2023-07-12 20:15] LABS: Eosinophils % (auto) 5.9 % (0.0-7.0); Hematocrit 34.4 % (36.0-46.0); Lymphocytes # (auto) 2.3 10 ^3/uL (0.4-5.4); Lymphocytes % (auto) 41.6 % (10.0-50.0); Mean Corpuscular Hgb Conc. 31.2 g/dL (32.0-36.0); Mean Corpuscular Volume 77.5 fL (80.0-100.0); Monocytes % (auto) 11.9 % (0.0-12.0); Neutrophils # (auto) 2.2 10 ^3/uL (1.6-8.6); Neutrophils % (auto) 39.2 % (37.0-80.0); Red Blood Cells 4.43 10^6/uL (4.0-5.20); Red Cell Distribution Width 18.3 % (11.8-14.3); White Blood Cell 5.5 10^3/uL (4.4-10.8)
[2023-07-12] MEDS: KETOROLAC TROMETH 30 MG/ML 1ML VIAL IV PRN (20:23)
[2023-07-12 20:37] LABS: Alanine Aminotransferase 13 U/L (7-40); Albumin 3.8 g/dL (3.2-4.8); Alkaline Phosphatase 78 U/L (46-116); Anion Gap 8 (5-15); Aspartate Aminotransferase 12 U/L (13-40); BUN/Creatinine Ratio 11.4 (10.0-20.0); Bilirubin, Total 0.2 mg/dL (0.2-1.0); Blood Urea Nitrogen 9 mg/dL (9-23); Calcium 9.4 mg/dL (8.7-10.4); Carbon Dioxide 21 mmol/L (20-30); Chloride 110 mmol/L (98-107); Glucose 107 mg/dL (74-106); Magnesium 1.9 mg/dL (1.6-2.6); Potassium 3.6 mmol/L (3.5-5.1); Sodium 139 mmol/L (136-145); Total Protein 6.4 g/dL (5.7-8.2)
[2023-07-12] MEDS: ACCU-CHEK COMFORT CURVE STRIP VI SCH (21:47)
[2023-07-12] MEDS: ASCORBIC ACID 500 MG TAB PO SCH (21:47)
[2023-07-12] MEDS: GABAPENTIN 100 MG CAP PO SCH (21:47)
[2023-07-12] MEDS: INSULIN LISPRO (HUMAN) 100 UNITS/ML ML SC SCH (21:51)
[2023-07-13] VITALS (9 sets, daily range): BP systolic 103–122; BP diastolic 46–70; PULSE 57–73; RESP 18–19; TEMP 97.6–98.4; O2SAT 95–99
[2023-07-13] MEDS: HYDROmorphone HCL 2 MG/ML VL/or syr IV PRN ×2 (01:27→09:13)
[2023-07-13] MEDS: INSULIN LISPRO (HUMAN) 100 UNITS/ML ML SC SCH (06:47)
[2023-07-13] MEDS ORDERED: PANTOPRAZOLE 40 MG TAB PO SCH (07:00)
[2023-07-13] MEDS: cefTRIAXone 1GM/50ML D5W 50 ML IV SCH (09:38)
[2023-07-13] MEDS: LORATADINE 10 MG TAB PO SCH (09:40)
[2023-07-13] MEDS: PANTOPRAZOLE 40 MG TAB PO SCH (09:40)
[2023-07-13] MEDS: CLOPIDOGREL BISULFATE 75 MG TAB PO SCH (09:40)
[2023-07-13] MEDS: METOPROLOL SUCCINATE XL 50 MG TAB PO SCH (09:41)
[2023-07-13] MEDS: EMPAGLIFLOZIN 10 MG TAB PO SCH (09:46)
[2023-07-13] MEDS: VALSARTAN 80 MG TAB PO SCH (10:00)
[2023-07-14] VITALS (9 sets, daily range): BP systolic 110–155; BP diastolic 50–74; PULSE 54–78; RESP 16–20; TEMP 98–98.7; O2SAT 95–100
[2023-07-14] MEDS: KETOROLAC TROMETH 30 MG/ML 1ML VIAL IV PRN (03:21)
[2023-07-14] MEDS: SOD CHL 0.45% 1,000 ML IV SCH (06:15)
[2023-07-14 07:40] LABS: Basophils # (auto) 0 10 ^3/uL (0-0.2); Eosinophils # (auto) 0.3 10 ^3/uL (0-0.8); Hemoglobin 10.7 g/dL (12.2-16.2); Monocytes # (auto) 0.7 10 ^3/uL (0-1.3)
[2023-07-14 07:42] LABS: Basophils % (auto) 0.6 % (0.0-2.0); Eosinophils % (auto) 5.6 % (0.0-7.0); Hematocrit 34.2 % (36.0-46.0); Lymphocytes % (auto) 35.2 % (10.0-50.0); Mean Corpuscular Hgb Conc. 31.1 g/dL (32.0-36.0); Mean Corpuscular Volume 77.2 fL (80.0-100.0); Monocytes % (auto) 12.6 % (0.0-12.0); Neutrophils # (auto) 2.6 10 ^3/uL (1.6-8.6); Red Blood Cells 4.43 10^6/uL (4.0-5.20); Red Cell Distribution Width 18.3 % (11.8-14.3); White Blood Cell 5.6 10^3/uL (4.4-10.8)
[2023-07-14 07:57] LABS: Alanine Aminotransferase 10 U/L (7-40); Albumin 3.5 g/dL (3.2-4.8); Alkaline Phosphatase 69 U/L (46-116); Anion Gap 9 (5-15); Aspartate Aminotransferase < 8 U/L (13-40); BUN/Creatinine Ratio 16.2 (10.0-20.0); Bilirubin, Total 0.2 mg/dL (0.2-1.0); Blood Urea Nitrogen 11 mg/dL (9-23); Carbon Dioxide 24 mmol/L (20-30); Chloride 110 mmol/L (98-107); Glucose 105 mg/dL (74-106); Potassium 3.5 mmol/L (3.5-5.1); Sodium 143 mmol/L (136-145); Total Protein 5.9 g/dL (5.7-8.2)
[2023-07-14 08:32] LABS: Triglycerides 93 mg/dL (< 150)
[2023-07-14 08:33] LABS: LDL Cholesterol 118 mg/dL (< 100)
[2023-07-14 08:34] LABS: Cholesterol 164 mg/dL (< 200); HDL Cholesterol 33 mg/dL (40-59)
[2023-07-14] MEDS: HYDROmorphone HCL 2 MG/ML VL/or syr IV PRN (09:05)
[2023-07-14] MEDS: ALBUTEROL SULF 2.5 MG/0.5ML(0.5%) NEB SOLN NEB PRN (13:31)
[2023-07-15] VITALS (13 sets, daily range): BP systolic 142–159; BP diastolic 58–80; PULSE 55–78; RESP 14–19; TEMP 97.9–98.4; O2SAT 59–100
[2023-07-15] MEDS: KETOROLAC TROMETH 30 MG/ML 1ML VIAL IV PRN (00:19)
[2023-07-15] MEDS: HYDROmorphone HCL 2 MG/ML VL/or syr IV PRN (05:51)
[2023-07-15] MEDS: DexAMETHasone SOD PHOS 4 MG/1ML SDV INJ IV SCH (09:00)
[2023-07-15] MEDS: SOD CHL 0.45% 1,000 ML IV SCH (09:06)
[2023-07-16 01:00] VITALS: BP 157/79; PULSE 59; RESP 18; TEMP 98.1; O2SAT 93
[2023-07-16 01:05] VITALS: BP 147/77; PULSE 60
[2023-07-16] MEDS: SOD CHL 0.45% 1,000 ML IV SCH (02:13)
[2023-07-16] MEDS: KETOROLAC TROMETH 30 MG/ML 1ML VIAL IV PRN (06:06)
[2023-07-16 06:46] VITALS: O2SAT 97
[2023-07-16 08:00] VITALS: PULSE 55
[2023-07-16 09:00] VITALS: BP 167/87; PULSE 61; RESP 18; TEMP 97.9; O2SAT 98
[2023-07-16] MEDS: HYDROmorphone HCL 2 MG/ML VL/or syr IV PRN (09:03)
[2023-07-16 09:39] LABS: Albumin 3.7 g/dL (3.2-4.8); Alkaline Phosphatase 70 U/L (46-116); Anion Gap 7 (5-15); Aspartate Aminotransferase 11 U/L (13-40); BUN/Creatinine Ratio 16.2 (10.0-20.0); Bilirubin, Total 0.3 mg/dL (0.2-1.0); Blood Urea Nitrogen 11 mg/dL (9-23); Calcium 9.2 mg/dL (8.5-10.1); Carbon Dioxide 22 mmol/L (20-30); Chloride 108 mmol/L (98-107); Glucose 123 mg/dL (74-106); Sodium 137 mmol/L (136-145); Total Protein 6.6 g/dL (5.7-8.2)
[2023-07-16 09:42] LABS: Alanine Aminotransferase < 9 U/L (7-40)
[2023-07-16 09:47] LABS: Basophils # (auto) 0 10 ^3/uL (0-0.2); Basophils % (auto) 0.2 % (0.0-2.0); Eosinophils # (auto) 0 10 ^3/uL (0-0.8); Hemoglobin 11.1 g/dL (12.2-16.2); Mean Corpuscular Volume 77.6 fL (80.0-100.0); Nucleated Red Blood Cells % 0.1 %
[2023-07-16 09:51] LABS: Eosinophils % (auto) 0.1 % (0.0-7.0); Hematocrit 35.6 % (36.0-46.0); Lymphocytes # (auto) 1.3 10 ^3/uL (0.4-5.4); Lymphocytes % (auto) 18.8 % (10.0-50.0); Mean Corpuscular Hemoglobin 24.2 pg (28.0-32.0); Mean Corpuscular Hgb Conc. 31.2 g/dL (32.0-36.0); Monocytes # (auto) 0.4 10 ^3/uL (0-1.3); Monocytes % (auto) 5.3 % (0.0-12.0); Neutrophils # (auto) 5.3 10 ^3/uL (1.6-8.6); Neutrophils % (auto) 75.6 % (37.0-80.0); Red Blood Cells 4.59 10^6/uL (4.0-5.20); Red Cell Distribution Width 18.9 % (11.8-14.3)
[2023-07-16 10:05] VITALS: BP 150/77; PULSE 66; RESP 18
== END 2023-07-16 19:15 | disposition home or self-care (01) | DRG 191 ==
LOC: TELE-WESTW 17:24 → UNDOADMIN 17:24 → TELE-WESTW 18:21
PROVIDERS: ADMIT Specialist; ATTEND Specialist
DX: J44.1 Chronic obstructive pulmonary disease with (acute) exacerbation (principal); I25.110 Atherosclerotic heart disease of native coronary artery with unstable angina pectoris; N39.0 Urinary tract infection, site not specified; J45.901 Unspecified asthma with (acute) exacerbation; M79.7 Fibromyalgia; E66.01 Morbid (severe) obesity due to excess calories; I10 Essential (primary) hypertension; E78.00 Pure hypercholesterolemia, unspecified; E86.1 Hypovolemia; R09.02 Hypoxemia; I49.9 Cardiac arrhythmia, unspecified; Z96.642 Presence of left artificial hip joint; K21.9 Gastro-esophageal reflux disease without esophagitis; E11.620 Type 2 diabetes mellitus with diabetic dermatitis; E87.8 Other disorders of electrolyte and fluid balance, not elsewhere classified; F31.9 Bipolar disorder, unspecified; Z68.39 Body mass index [BMI] 39.0-39.9, adult; Z90.710 Acquired absence of both cervix and uterus; Z80.9 Family history of malignant neoplasm, unspecified; Z88.8 Allergy status to other drugs, medicaments and biological substances; Z79.899 Other long term (current) drug therapy; Z91.119 Patient's noncompliance with dietary regimen due to unspecified reason; Z79.82 Long term (current) use of aspirin; I25.2 Old myocardial infarction; Z79.84 Long term (current) use of oral hypoglycemic drugs; Z86.73 Personal history of transient ischemic attack (TIA), and cerebral infarction without residual deficits; Z87.440 Personal history of urinary (tract) infections
CPT/HCPCS: 36415; 71046; 78582; 80053; 80061; 82962; 83036; 83735; 84484; 85025; G0378; J1100; J1815; J1885

== ENCOUNTER 2023-09-12 18:13 | Inpatient (IN) | payer MEDICARE, MEDICAID ==
[~2023-09-12] VITALS: Ht 165.1 cm; Wt 107.4 kg
[2023-09-12 18:51] VITALS: BP 122/57; PULSE 80; RESP 20; TEMP 99.4; O2SAT 92
[2023-09-12] MEDS ORDERED: GABA-1250 PO (19:50)
[2023-09-12 20:00] VITALS: PULSE 68
[2023-09-12] MEDS ORDERED: OXY5T PO (20:03)
[2023-09-12 21:00] VITALS: BP 106/41; PULSE 71; RESP 18; TEMP 98.8; O2SAT 97
[2023-09-12] MEDS ORDERED: MORPHINE SULFATE INJ 2 MG/ml SYRG IV PRN (21:00)
[2023-09-12] MEDS: NITROGLYCERIN 0.4 MG SL TAB SL PRN (21:32)
[2023-09-12] MEDS: GABAPENTIN 300 MG CAP PO SCH (21:40)
[2023-09-12] MEDS: ATORVASTATIN 20 MG TAB PO SCH (21:41)
[2023-09-12] MEDS: MUPIROCIN 2% OINT 15gm or 22gm TOP SCH (22:00)
[2023-09-12 22:13] LABS: Basophils # (auto) 0.1 10 ^3/uL (0-0.2); Basophils % (auto) 0.9 % (0.0-2.0); Eosinophils # (auto) 0.2 10 ^3/uL (0-0.8); Eosinophils % (auto) 3.2 % (0.0-7.0); Hemoglobin 10.2 g/dL (12.2-16.2); Lymphocytes # (auto) 1.9 10 ^3/uL (0.4-5.4); Mean Corpuscular Hemoglobin 23.9 pg (28.0-32.0); Mean Corpuscular Hgb Conc. 30.8 g/dL (32.0-36.0); Mean Corpuscular Volume 77.5 fL (80.0-100.0); Monocytes # (auto) 1.1 10 ^3/uL (0-1.3); Monocytes % (auto) 13.9 % (0.0-12.0); Neutrophils # (auto) 4.4 10 ^3/uL (1.6-8.6); Nucleated Red Blood Cells % 0.1 %; Red Blood Cells 4.26 10^6/uL (4.0-5.20); Red Cell Distribution Width 15.9 % (11.8-14.3); White Blood Cell 7.6 10^3/uL (4.4-10.8)
[2023-09-12 22:34] LABS: Albumin 3.8 g/dL (3.2-4.8); Alkaline Phosphatase 77 U/L (46-116); Anion Gap 3 (5-15); Aspartate Aminotransferase 9 U/L (13-40); BUN/Creatinine Ratio 18.4 (10.0-20.0); Blood Urea Nitrogen 14 mg/dL (9-23); Calcium 9.3 mg/dL (8.5-10.1); Carbon Dioxide 28 mmol/L (20-30); Chloride 103 mmol/L (98-107); Glucose 97 mg/dL (74-106); Magnesium 1.9 mg/dL (1.6-2.6); Potassium 3.5 mmol/L (3.5-5.1); Sodium 134 mmol/L (136-145)
[2023-09-12 22:35] LABS: Bilirubin, Total 0.3 mg/dL (0.2-1.0); Phosphorus 3.1 mg/dL (2.4-5.1)
[2023-09-12 22:52] LABS: Alanine Aminotransferase < 9 U/L (7-40)
[2023-09-12] MEDS: HYDROmorphone HCL 2 MG/ML VL/or syr IV PRN (23:05)
[2023-09-13] VITALS (14 sets, daily range): BP systolic 100–122; BP diastolic 48–69; PULSE 60–80; RESP 14–20; TEMP 98.1–99.4; O2SAT 93–99
[2023-09-13] MEDS: ENOXAPARIN SOD 60 MG/0.6 ML SYRINGE SC ONE (03:14)
[2023-09-13 06:12] LABS: Basophils # (auto) 0.1 10 ^3/uL (0-0.2); Eosinophils # (auto) 0.3 10 ^3/uL (0-0.8); Lymphocytes # (auto) 1.9 10 ^3/uL (0.4-5.4); Mean Corpuscular Hemoglobin 24.3 pg (28.0-32.0); Red Cell Distribution Width 16.1 % (11.8-14.3)
[2023-09-13] MEDS: PANTOPRAZOLE 40 MG TAB PO SCH (06:14)
[2023-09-13 06:16] LABS: Basophils % (auto) 1.1 % (0.0-2.0); Hematocrit 31.9 % (36.0-46.0); Hemoglobin 10.1 g/dL (12.2-16.2); Lymphocytes % (auto) 26.4 % (10.0-50.0); Mean Corpuscular Hgb Conc. 31.7 g/dL (32.0-36.0); Mean Corpuscular Volume 76.6 fL (80.0-100.0); Monocytes # (auto) 1.1 10 ^3/uL (0-1.3); Monocytes % (auto) 14.4 % (0.0-12.0); Neutrophils % (auto) 54.1 % (37.0-80.0); Nucleated Red Blood Cells % 0.1 %; Red Blood Cells 4.17 10^6/uL (4.0-5.20); White Blood Cell 7.3 10^3/uL (4.4-10.8)
[2023-09-13 06:35] LABS: LDL Cholesterol 105 mg/dL (< 100); Triglycerides 93 mg/dL (< 150)
[2023-09-13 06:36] LABS: Cholesterol 147 mg/dL (< 200); HDL Cholesterol 32 mg/dL (40-59)
[2023-09-13] MEDS: metFORMIN HYDROCHLORIDE 500 MG TAB PO SCH (09:07)
[2023-09-13] MEDS: ARIPIPRAZOLE 10 MG PO SCH (10:00)
[2023-09-13] MEDS: EZETIMIBE 10 MG PO SCH (10:00)
[2023-09-13] MEDS ORDERED: LORATADINE 10 MG TAB GT SCH (10:00)
[2023-09-13] MEDS: MELOXICAM 15 MG PO SCH (10:00)
[2023-09-13] MEDS: VALSARTAN 80 MG TAB PO SCH (10:30)
[2023-09-13] MEDS: ENOXAPARIN SOD 60 MG/0.6 ML SYRINGE SC SCH (10:31)
[2023-09-13] MEDS: CLOPIDOGREL BISULFATE 75 MG TAB PO SCH (10:31)
[2023-09-13] MEDS: LORATADINE 10 MG TAB PO SCH (10:31)
[2023-09-13] MEDS: EMPAGLIFLOZIN 10 MG TAB PO SCH (10:31)
[2023-09-13] MEDS: METOPROLOL SUCCINATE XL 50 MG TAB PO SCH (10:31)
[2023-09-13] MEDS: HYDROmorphone HCL 2 MG/ML VL/or syr IV PRN (13:42)
[2023-09-13 22:23] LABS: Albumin 3.5 g/dL (3.2-4.8); Alkaline Phosphatase 78 U/L (46-116); Anion Gap 6 (5-15); Aspartate Aminotransferase 10 U/L (13-40); BUN/Creatinine Ratio 13.8 (10.0-20.0); Bilirubin, Total 0.2 mg/dL (0.2-1.0); Blood Urea Nitrogen 8 mg/dL (9-23); Calcium 9.1 mg/dL (8.5-10.1); Carbon Dioxide 27 mmol/L (20-30); Chloride 105 mmol/L (98-107); Glucose 90 mg/dL (74-106); Potassium 3.6 mmol/L (3.5-5.1); Sodium 138 mmol/L (136-145); Total Protein 6.6 g/dL (5.7-8.2)
[2023-09-13 22:26] LABS: Alanine Aminotransferase < 9 U/L (7-40)
[2023-09-14] VITALS (10 sets, daily range): BP systolic 106–148; BP diastolic 56–69; PULSE 68–94; RESP 16–20; TEMP 98.3–99.4; O2SAT 94–98
[2023-09-14] MEDS: PANTOPRAZOLE 40 MG TAB PO SCH (02:48)
[2023-09-14] MEDS: SOD CHL 0.45% WITH 20MEQ KCL 1,000 ML IV SCH (02:48)
[2023-09-14] MEDS: KETOROLAC TROMETH 30 MG/ML 1ML VIAL IV SCH (06:18)
[2023-09-14] MEDS: ENOXAPARIN SOD 40 MG/0.4 ML SYRINGE SC SCH (22:02)
[2023-09-14] MEDS: DOCUSATE SOD 100 MG CAP PO PRN (22:11)
[2023-09-15] VITALS (13 sets, daily range): BP systolic 112–152; BP diastolic 53–78; PULSE 63–88; RESP 16–24; TEMP 97.4–98.6; O2SAT 20–100
[2023-09-15] MEDS: ALBUTEROL SULF 2.5 MG/0.5ML(0.5%) NEB SOLN NEB PRN (02:52)
[2023-09-15 18:53] LABS: Urine Bacteria None Seen /hpf (None Seen)
[2023-09-15 19:15] LABS: Urine Blood 2+ /uL (Negative); Urine Budding Yeast OCCASIONAL /hpf (None Seen); Urine Clarity Turbid (Clear); Urine Color Yellow (Yellow); Urine Mucus FEW (None Seen); Urine Protein, UAD TRACE (Negative); Urine Specific Gravity 1.024 (1.001-1.035); Urine Urobilinogen 2 mg/dL (Negative); Urine WBC 65 /hpf (0 - 5)
[2023-09-15] MEDS: SULFAMETH-TRIMETH 80/16MG-ML 10 ML in D5W 5% 250 ML IV SCH (22:10)
[2023-09-16] VITALS (12 sets, daily range): BP systolic 132–148; BP diastolic 62–78; PULSE 62–76; RESP 17–20; TEMP 97.8–98.4; O2SAT 20–98
[2023-09-16 06:19] LABS: Lymphocytes # (auto) 1.4 10 ^3/uL (0.4-5.4); Neutrophils # (auto) 3.9 10 ^3/uL (1.6-8.6); White Blood Cell 6.7 10^3/uL (4.4-10.8)
[2023-09-16 06:23] LABS: Basophils # (auto) 0.1 10 ^3/uL (0-0.2); Basophils % (auto) 0.9 % (0.0-2.0); Eosinophils # (auto) 0.3 10 ^3/uL (0-0.8); Eosinophils % (auto) 4.6 % (0.0-7.0); Hematocrit 33.2 % (36.0-46.0); Hemoglobin 10.4 g/dL (12.2-16.2); Lymphocytes % (auto) 21.3 % (10.0-50.0); Mean Corpuscular Hemoglobin 23.7 pg (28.0-32.0); Mean Corpuscular Hgb Conc. 31.3 g/dL (32.0-36.0); Mean Corpuscular Volume 75.9 fL (80.0-100.0); Monocytes % (auto) 14.9 % (0.0-12.0); Neutrophils % (auto) 58.3 % (37.0-80.0); Red Blood Cells 4.38 10^6/uL (4.0-5.20); Red Cell Distribution Width 16.1 % (11.8-14.3)
[2023-09-16 06:35] LABS: Alanine Aminotransferase 23 U/L (7-40); Alkaline Phosphatase 85 U/L (46-116); Anion Gap 6 (5-15); BUN/Creatinine Ratio 27.1 (10.0-20.0); Blood Urea Nitrogen 16 mg/dL (9-23); Carbon Dioxide 26 mmol/L (20-30); Chloride 107 mmol/L (98-107); Glucose 85 mg/dL (74-106); Sodium 139 mmol/L (136-145)
[2023-09-16 06:36] LABS: Aspartate Aminotransferase 34 U/L (13-40)
[2023-09-16 06:37] LABS: Bilirubin, Total 0.4 mg/dL (0.2-1.0); Total Protein 6.1 g/dL (5.7-8.2)
[2023-09-17] VITALS (15 sets, daily range): BP systolic 116–163; BP diastolic 60–82; PULSE 66–81; RESP 17–22; TEMP 98.3–98.8; O2SAT 93–100
[2023-09-17] MEDS: FUROSEMIDE 20 MG/2 ML VIAL IV ONE (05:50)
[2023-09-17] MEDS: KETOROLAC TROMETH 30 MG/ML 1ML VIAL IV SCH (06:01)
[2023-09-17] MEDS: DULoxetine HCL 30 MG CAP PO SCH (08:50)
[2023-09-17] MEDS ORDERED: BACDST PO (19:26)
[2023-09-18 01:00] VITALS: BP 144/69; PULSE 75; RESP 17; TEMP 98.5; O2SAT 97
[2023-09-18 05:00] VITALS: BP 158/75; PULSE 74; RESP 18; TEMP 98.3; O2SAT 96
[2023-09-18 07:46] VITALS: BP 149/75; PULSE 74; RESP 18; TEMP 98.3; O2SAT 98
[2023-09-18 08:30] VITALS: BP 149/75; PULSE 73; RESP 18; TEMP 98.1; O2SAT 98
[2023-09-18 10:00] VITALS: O2SAT 98
[2023-09-18 10:16] VITALS: O2SAT 98
== END 2023-09-18 10:15 | disposition home or self-care (01) | DRG 192 ==
LOC: UNDOADMIN 18:21 → TELE-EAST 18:21
PROVIDERS: ADMIT Specialist; ATTEND Specialist
DX: J44.1 Chronic obstructive pulmonary disease with (acute) exacerbation (principal); E11.9 Type 2 diabetes mellitus without complications; E66.01 Morbid (severe) obesity due to excess calories; E78.00 Pure hypercholesterolemia, unspecified; E86.1 Hypovolemia; F31.9 Bipolar disorder, unspecified; I10 Essential (primary) hypertension; I25.118 Atherosclerotic heart disease of native coronary artery with other forms of angina pectoris; I25.2 Old myocardial infarction; J01.90 Acute sinusitis, unspecified; M16.0 Bilateral primary osteoarthritis of hip; M17.0 Bilateral primary osteoarthritis of knee; M79.7 Fibromyalgia; Z79.899 Other long term (current) drug therapy; Z82.49 Family history of ischemic heart disease and other diseases of the circulatory system; Z79.84 Long term (current) use of oral hypoglycemic drugs; Z96.642 Presence of left artificial hip joint; Z83.3 Family history of diabetes mellitus; Z91.119 Patient's noncompliance with dietary regimen due to unspecified reason; Z98.61 Coronary angioplasty status; Z87.891 Personal history of nicotine dependence; Z86.73 Personal history of transient ischemic attack (TIA), and cerebral infarction without residual deficits; Z68.39 Body mass index [BMI] 39.0-39.9, adult
CPT/HCPCS: 36415; 71045; 76775; 80053; 80061; 81001; 82962; 83036; 83735; 84100; 84443; 84484; 85025; 85379; 86141; 87086; 93005; 94640; 97110; 97116; 97163; 97530; G0378; J1885; J3490; J7060

== ENCOUNTER 2024-02-15 00:39 | Inpatient (IN) | payer MEDICARE, MEDICAID ==
[2024-02-15] VITALS (14 sets, daily range): BP systolic 121–175; BP diastolic 64–87; PULSE 56–83; RESP 18–24; TEMP 97.7–98.7; O2SAT 97–100
[~2024-02-15] VITALS: Ht 30.5 cm; Wt 106.8 kg
[~2024-02-15 00:39] MED LIST changes: -ASCO500T6 PO; +BACDST PO; -CELE200C PO; -DUPI1INJ SC; +GABA-1250 PO; -GABA-1308 PO
[2024-02-15] MEDS ORDERED: NITROGLYCERIN 0.4 MG SL TAB SL PRN (01:15)
[2024-02-15] MEDS ORDERED: DOCUSATE SOD 100 MG CAP PO PRN (01:15)
[2024-02-15] MEDS: cefTRIAXone 2GM/50ML D5W 50 ML IV SCH (01:30)
[2024-02-15] MEDS ORDERED: HYDROmorphone HCL 2 MG/ML VL/or syr IV PRN (01:30)
--- NOTE | 2024-02-15 01:56 | DVHHP2 ---
Admitting Diagnosis: Acute chest pain Shortness of breath Wheezing History of Present Illness 63 year-old middle-aged -Japanese female with a known history of COPD, hypertension, NIDDM, hypercholesterolemia, obesity and CAD status post PTCA 2007 and fibromyalgia is directly admitted for further eval and management of recurrent L lower rib cage chest pains, at times pleuritic in nature referring to back, attended with shortness of breaths On and off for past two days. She tried sublingual nitroglycerin without significant relief. Late This evening, patient had recurrence of L anterior Chest wall pain pleuritic in nature that woke her up. She also reports several additional symptoms of chest congestion cough and wheezing Upon receiving phone call from her spouse Mr. Cisco Fulton, I recommended patient to receive further evaluation at hospital settings Onset/duration: x 2 days-worse this morning Severity: 5-7/10 Location: Left lower rib cage, Anterior chest wall pains Characteristic: Pleuritic, chest tightness, wheezing Referral: Back Associated symptoms: Chest congestion shortness of breath wheezing Aggravated by: Deep inspiration, cough #1 Alleviated by: Bronchodilator Med-Neb treatment Risk factors: NIDDM, hypertension, CAD COPD, obesity Upon arrival to medical floor, she appeared to be in discomfort due to chest pains and SOB. She appeared to be hypertensive, tachypneic and hypovolemic Her 12-lead EKG was remarkable for ASMI Her troponins were reported to be in normal range ng/L. Given cardiac and pulmonary risk factors, I recommended her to receive hospitalization.. Following to my case discussion with household appliance installer, I admitted patient to medical floor with telemetry Past Medical History Past medical history records: Reviewed Cardiovascular history: Long history of hypertension complicated by hypertensive CAD Suffered acute IL and noted to have occlusive disease of RCA requiring PTCA followed by stent placement in the year 2007 Patient suffers chronic stable angina requiring multiple hospitalization She received multiple stress EKG test and angiographic study including last one in November 2021 Respiratory history: COPD, obesity hypoventilation syndrome Gastrointestinal history: GE reflux Genitourinary history: Recurrent UTI over the past 12 months Endocrine history: Fairly well-controlled NIDDM-hemoglobin A1c stays under 6.5% to 7% Currently on metformin Exogenous obesity-BMI 41 kg/m, verbally counseled to lose weight of 100 pounds through diet and exercise Hypercholesterolemia currently on Lipitor-and Ecotrin Neurology history: History of CVA with no residual focal deficit Musculoskeletal history: Severe osteoarthritis affecting hip and knees-followed by Dr. 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 History of smoking: Cigarettes: Never-admits to have exposure to the passive smoking History of smoking E cigarettes: Denies History of smoking marijuana: Denies History of drinking alcohol: Denies History of substance abuse: Denies Patient Family History: Cardiovascular disease G8 FATHER, Onset: - Diabetes mellitus FHx: cancer G8 MOTHER, Onset: - Hypertension G8 MOTHER, Onset: - G8 FATHER, Onset: - Allergies: Coded Allergies: Benzalkonium Chloride (Verified Allergy, Unknown, 07/08/18) Lisinopril (Verified Allergy, Unknown, 07/08/18) Home Meds Active Scripts Sulfamethoxazole W/Trimethopri (Bactrim Ds Tablet) 1 Tab Tb, 1 TAB PO BID for 7 Days, #14 TAB Prov:SULY CARDOZO MD 09/17/23 Loratadine (CLARITIN TABLET) 10 Mg Tb, 10 MG GT DAILY, #20 TAB Prov:SULY CARDOZO MD 01/20/22 Albuterol Sulfate (Ventolin) 2.5 Mg/0.5 Ml Nb, 2.5 MG NEB Q4HPRN PRN for 50 Days, #100 ML 1 Refill Prov:SULY CARDOZO MD 01/20/22 Reported Medications Oxycodone Hcl (OXYCODONE HCL) 5 Mg Tb, 30 MG PO BID, TAB 09/12/23 Gabapentin (Gabapentin) 300 Mg Cap, 1 CAP PO PRN PRN for MODERATE PAIN (4-6 PAIN SCALE), #90 CAP 5 Refills 09/12/23 Valsartan-Hydrochlorothiazide (Diovan Hct) 160 /12.5 Tab, 1 TAB PO DAILY 05/15/23 Meloxicam (Meloxicam) 15 Mg Tab, 1 TAB PO DAILY 05/15/23 Aripiprazole (Aripiprazole) 10 Mg Tab, 1 TAB PO DAILY 05/15/23 Metformin Hydrochloride (Metformin Hcl Er) 750 Mg Tab, 1 TAB PO DAILY, #90 TAB 3 Refills 05/12/23 Rosuvastatin Calcium (Crestor) 20 Mg Tab, 1 TAB PO DAILY for LOWER BAD CHOLESTEROL, #30 TAB 5 Refills 04/03/22 Pantoprazole Sodium Sesquihydr (Pantoprazole Sodium) 40 Mg Tab, 40 MG PO QAM for GERD, TAB PRIOR TO BREAKFAST PER PT SHOULD STILL BE ON THIS MEDICATION EVEN THOUGH NO P/UP HISTORY IN EXTERNAL MED 11/21/21 Ezetimibe (Zetia) 10 Mg Tab, 1 TAB PO DAILY for High Cholesterol, #30 TAB 5 Refills 11/21/21 Empagliflozin (Jardiance) 10 Mg Tab, 10 MG PO DAILY for DIABETES, TAB 11/21/21 Escitalopram Oxalate (ESCITALOPRAM OXALATE) 20 Mg Tab, 1 TAB PO DAILY for DEPRESSION, #30 TAB 5 Refills 11/21/21 Metoprolol Succinate (Metoprolol Succinate Er) 50 Mg Tab, 50 MG PO DAILY for BLOOD PRESSURE NEW DISCHARGE MED IS METOPROLOL SUCC ER 25 MG BID, BUT PATIENT HAS NOT STARTED TAKING YET AND WOULD LIKE TO BE KEPT ON 50 MG DAILY 07/12/20 Mupirocin Calcium (Topical) (MUPIROCIN) 2 % Cre, 1 APPLIC TOP BID for Skin infection PER PATIENT'S HOME MED LIST: APPLY TOPICALLY TO OPEN WOUNDS BID PT USES 2 GRAMS BID 01/18/20 Docusate Sodium (DOCQLACE) 100 Mg Cap, 100 MG PO DAILY PRN for FOR CONSTIPATION, CAP 06/04/18 Albuterol Sulfate (VENTOLIN MDI) 90 Mcg Ih, 2 PUFF IN Q6HPRN PRN for SHORTNESS OF BREATH EXTERNAL MED HX SAYS Q4HR. PATIENT USES Q6HR PRN 06/04/18 Clopidogrel Bisulfate (CLOPIDOGREL) 75 Mg Tab, 75 MG PO DAILY 06/04/18 Current Medications Current Medications Medications (Trade) Dose Ordered Sig/Kitty Route PRN Reason Start Time Stop Time Status Last Admin Nitroglycerin (Ntrostat Sublingual) 0.4 mg Q5MINP PRN SL FOR CHEST PAIN 02/15/24 01:15 Morphine Sulfate 2 mg Q30M PRN IV FOR CHEST PAIN 02/15/24 01:15 02/15/24 13:42 Albuterol (Ventolin Medneb) 2.5 mg Q4HPRN PRN NEB SWOB 02/15/24 01:15 02/15/24 03:08 Clopidogrel Bisulfate (Plavix) 75 mg DAILY PO 02/15/24 10:00 02/15/24 08:37 Docusate Sodium (Colace Capsule) 100 mg DAILY PRN PO FOR CONSTIPATION 02/15/24 01:15 Empaglifozin (Jardiance) 10 mg DAILY PO 02/15/24 10:00 EZETIMIBE (Zetia) 10 mg DAILY PO 02/15/24 10:00 02/15/24 08:37 Gabapentin (Neurontin Capsule) 300 mg BID PO 02/15/24 10:00 02/15/24 21:26 Loratadine (Claritin Tablet) 10 mg DAILY GT 02/15/24 10:00 02/15/24 08:37 Metoprolol Succinate (Toprol Xl) 50 mg DAILY PO 02/15/24 10:00 02/15/24 08:36 Pantoprazole Sodium (Protonix Tablet) 40 mg QAM PO 02/15/24 07:00 02/15/24 07:56 Patient Own Medication 1 tab DAILY PO 02/15/24 10:00 Patient Own Medication 1 tab DAILY PO 02/15/24 10:00 Ceftriaxone Sodium/Dextrose 50 ml @ 50 mls/hr DAILY IV 02/15/24 01:30 02/15/24 13:43 Hydromorphone HCl (Dilaudid Injection) 0.6 mg Q4HP PRN IV Moderate Pain(4-6/10) 02/15/24 01:30 Hold Hydromorphone HCl (Dilaudid Injection) 1 mg Q4HP PRN IV SEVERE PAIN (7-10 PAIN SCALE) 02/15/24 01:30 02/15/24 21:25 Sodium Chloride 1,000 ml @ 50 mls/hr Q20H IV 02/15/24 01:30 02/15/24 21:26 Methylprednisolone Sodium Succinate 20 mg/Sodium Chloride 100 ml @ 200 mls/hr Q8HR IV 02/15/24 01:30 02/15/24 21:26 Ketorolac Tromethamine (Toradol Injection) 15 mg Q6HPRN PRN IV MODERATE PAIN (4-6 PAIN SCALE) 02/15/24 01:30 02/20/24 01:29 Insulin Human Lispro (HumaLOG) AC SC 02/15/24 07:00 02/15/24 13:52 Insulin Human Lispro (HumaLOG) [facility] 02/15/24 22:00 02/15/24 21:50 Review of Systems Constitutional: Reports generalized weakness, low-grade fever, chills, denies weight loss HEENT: Denies headache, nasal/maxillary sinus congestion, rhinorrhea, lacrimation Denies conjunctival pains, denies hearing or visual deficits NECK: No symptoms of neck pains or stiffness CHEST: Reports chest pains, cough congestion, shortness of breath costochondral tenderness, RS: Reports cough, chest congestion, wheezing, shortness of breath, pleurisy CVS: Reports angina, shortness of breath, denies palpitation, : Reports heartburn, GE reflux, abdominal pains, N/ V/D, melena : Denies symptoms of frequency, urgency, dysuria, hematuria BACK: Reports chronic back pains, radicular pains MS: Reports generalized aches and pains from fibromyalgia SKIN: Multiple scabbed wounds of upper and lower extremities EXTs: Multiple scabbed wounds no edema, no rash, no open wounds H[employer]AM[employer] WORKER: No altered mental status, focal deficits, no GTC seizures, weakness PSYCH: bipolar disorder -denies suicidal thoughts ENDO: Denies excessive thirst or urination, denies intolerance to cold or heat HEM/ONC: No symptoms of anemia, leukemia or multiple myeloma ALLERGY no symptoms of allergy Vital Signs Vital Signs Date Time Temp Pulse Resp B/P (MAP) Pulse Ox O2 Delivery O2 Flow Rate FiO2 02/15/24 21:25 67 20 171/87 02/15/24 21:00 97.7 97 97.7 02/15/24 09:46 Room Air 0.0 02/15/24 09:46 21 Physical Exam Physical Exam General appearance: Well-developed, morbidly obese middle-aged AA female Appears in discomfort due to chest pains, SOB Head: Normocephalic nontraumatic Eyes: EOMI, AMBAR, sclera nonicteric, conjunctive- pale ENT: Mild bilateral nasal congestion, bilateral TM mildly hyperemic NSL bilateral symmetrical, oral mucosa dry +2 Neck: Supple, carotid upstroke +2, trachea R off midline, JVD 1 cm No stridor, no goiter, no thyroid or lymph node enlargement No use of accessory muscles Chest: Emphysema, Bilateral symmetrical expansions of anterior wall, Costochondral tenderness at 6, 7, 8 ICS Breasts: I exam - Bilateral symmetrical, Lungs: clear breath sounds all over except reduced at bases A few late inspiratory rales at L lower base present CVS: PMI- 1 cm lateral to L MCL in fifth ICS , S1- S2 NSR no S3 GI: Abdomen soft, obese, bowel sounds normoactive No focal tenderness, no rebound tenderness No hepatosplenomegaly, no mass no hernia , : No CVA tenderness, no bladder mass palpable, genitalia-NE SKIN: Turgor -dry, color pale, no rash, no ic terus, Multiple scar of scabbed lesions No varicosity EXTs: No edema, color pink, no rash, no ecchymosis distal pulses +2 capillary refill <2 seconds, Scars of well healed scabbed lesions JOINTS; reduced range of motion BACK: No apparent lumbosacral spinal muscle tenderness, LYMPH NODES: No cervical, axillary or inguinal lymph nodes Neuro: Awake alert oriented 4, coherent, all cognitives- intact No pronator drift, no focal motor deficit, Changes of DPN, DTR +2, gait steady PSYCH: Affect mildly depressed-denies suicidal ideation Wounds Multiple scars of healed wounds over bilateral upper and lower extremities Wounds Multiple scabbed wounds over bilateral upper and lower extremities Results Labs Test 02/15/24 21:41 02/15/24 21:25 02/15/24 14:37 02/15/24 07:57 Range/Units POC Glucose 171 H 70-106 mg/dl White Blood Count 7.0 4.4-10.8 10^3/uL Red Blood Count 4.65 4.0-5.20 10^6/uL Hemoglobin 11.9 L 12.2-16.2 g/dL Hematocrit 37.3 36.0-46.0 % Mean Corpuscular Volume 80.3 80.0-100.0 fL Mean Corpuscular Hemoglobin 25.6 L 28.0-32.0 pg Mean Corpuscular Hemoglobin Concent 31.9 L 32.0-36.0 g/dL Red Cell Distribution Width 17.3 H 11.8-14.3 % Platelet Count 272 140-450 10^3/uL Mean Platelet Volume 7.9 6.9-10.8 fL Neutrophils (%) (Auto) 82.2 H 37.0-80.0 % Lymphocytes (%) (Auto) 14.5 10.0-50.0 % Monocytes (%) (Auto) 2.9 0.0-12.0 % Eosinophils (%) (Auto) 0.0 0.0-7.0 % Basophils (%) (Auto) 0.4 0.0-2.0 % Neutrophils # (Auto) 5.7 1.6-8.6 10 ^3/uL Lymphocytes # (Auto) 1.0 0.4-5.4 10 ^3/uL Monocytes # (Auto) 0.2 0-1.3 10 ^3/uL Eosinophils # (Auto) 0 0-0.8 10 ^3/uL Basophils # (Auto) 0 0-0.2 10 ^3/uL Nucleated Red Blood Cells 0.1 % Sodium Level 141 136-145 mmol/L Potassium Level 4.4 3.5-5.1 mmol/L Chloride Level 112 H 98-107 mmol/L Carbon Dioxide Level 21 20-31 mmol/L Anion Gap 8 5-15 Blood Urea Nitrogen 13 9-23 mg/dL Creatinine 0.59 0.550-1.02 mg/dL Glomerular Filtration Rate Calc 100 >90 mL/min BUN/Creatinine Ratio 22.0 H 10.0-20.0 Serum Glucose 167 H 74-106 mg/dL Calcium Level 9.6 8.7-10.4 mg/dL Total Bilirubin 0.3 0.2-1.0 mg/dL Aspartate Amino Transferase (AST) < 8 L 13-40 U/L Alanine Aminotransferase (ALT) 11 7-40 U/L Alkaline Phosphatase 95 46-116 U/L Total Protein 6.7 5.7-8.2 g/dL Albumin 4.0 3.2-4.8 g/dL Troponin I High Sensitivity 20 </=34 ng/L Urine Color Colorless Yellow Urine Clarity Clear Clear Urine pH 6.5 5.0-9.0 Urine Specific [place] 1.006 1.001-1.035 Urine Protein Negative Negative Urine Ketones Negative Negative Urine Blood Negative Negative /uL Urine Nitrite Negative Negative Urine Bilirubin Negative Negative Urine Urobilinogen Normal Negative mg/dL Urine Leukocyte Esterase 2+ Negative /uL Urine RBC 1 0 - 4 /hpf Urine WBC 24 0 - 5 /hpf Urine Squamous Epithelial Cells Few <5 /hpf Urine Bacteria Few H None Seen /hpf Urine Glucose Normal Normal mg/dL Test 02/15/24 02:15 Range/Units Phosphorus Level 2.8 2.4-5.1 mg/dL Magnesium Level 1.8 1.6-2.6 mg/dL Primary Diagnosis Primary Diagnosis Acute chest pain-rule out acute IL Vs pulmonary embolism Admitting Diagnosis: 1. Acute chest pain-rule out acute IL Vs pulmonary embolism 2. acute exacerabation of COPD from Acute asthmatic bronchitis 3. Pleurisy 2. Uncontrolled hypertension 3. Fairly well-controlled NIDDM 5. Hypercholesterolemia 2' Diagnosis/Comorbidities Morbid obesity in adult with current BMI Obesity hypoventilation Chronic osteoarthritis and back pains Chronic narcotic dependence Medical decision making Overall patient's hemodynamic condition appears to be clinically ill from development of acute chest pains * Pleuritic nature of the pain suggest possibility of lower respiratory tract infection with pleurisy * Given cardiac risk factors, recommended serial EKGs and enzymes Initial EKGs , troponins cardiac enzymes are unremarkable for acute IL She has received multiple cardiac workup including coronary angiogram The last coronary angiogram was in late summer of 2022. There was no in stent coronary artery stenosis. * For given symptoms of chest congestion, wheezing shortness of breath Will order chest x-ray to rule out pneumonia while starting patient on IV antibiotics, bronchodilator med neb Rx * The patient is considered immunocompromised host for given history of NIDDM, morbid obesity and COPD * Initial lab work next CBC CMP are pending * Chest x-ray shows * Also noticed uncontrolled hypertension-continue patient on valsartan, metoprolol * Reconciled patient's home medications * Education on long-term management of diabetes hypertension and obesity was given Diabetic education Recommended to comply with ADA 1800 calorie diet and exercise Recommended intentional weight loss of 100 lbs Rec. Monitoring of hemoglobin A1c, renal functions every 3-4 months Rec, biannual physical exam, annual dental eye and peripheral artery ultrasound Annual 24 hour microalbuminuria Obesity education Current BMI> 40 kg per m2 Recommended intentional weight loss of 100 diet and exercise Informed patient about morbid obesity related health problems such as Obesity hypoventilation, hypoxia, cardiac arrhythmias, embolic events leading to CVA Lifelong disability, diabetes, arthritis requiring arthroplasties and high vulnerability for COVID infections. Patient agrees to follow my recommendations Chronic narcotic dependence Discussed in length about narcotic dependence and health problems including Acute hypoxic respiratory failure, and fatal cardiac arrhythmias from hypoxia Encourage patient for alternative pain management Measures as tolerated The patient agrees to follow my recommendations to be some Plan Treatment plans as of today Admit to telemetry floor Obtain serial EKGs and enzymes Place patient on NTG, morphine Place patient on metoprolol XL, and Lipitor continue Ecotrin 81 mg by mouth daily Continue metoprolol 50 mg PO twice daily Recommend antiplatelet agent like Plavix and Lovenox Reconcile home medications Obtain sputum and blood cultures PRN temp >101.5 Place patient on broad-spectrum IV antibiotics and bronchodilator Med-Neb hilary tment Careful IV hydration VTE the precautions Local application of Bactroban over bilateral upper extremity patient and her have been well informed by me about 1. Admission diagnosis, treatment plans, side effects of medications, course of the disease and fair to guarded prognosis 2. Modification of risk factors including intentional weight loss for obesity, tight control of diabetes and hypertension 3. All patient's and concerns raised by patient or family are satisfactorily addressed by me Plan discussed with: Patient Plan discussed with: Patient, Spouse Code Visit Code Visit Total Time (mins): 120 SULY CARDOZO MD Feb 15, 2024 01:56
[2024-02-15 02:46] LABS: Magnesium 1.8 mg/dL (1.6-2.6); Phosphorus 2.8 mg/dL (2.4-5.1)
[2024-02-15] MEDS: methylPREDNISolone SOD SUCC 40 MG/ML VL ONE (03:02)
[2024-02-15] MEDS: ALBUTEROL SULF 2.5 MG/0.5ML(0.5%) NEB SOLN NEB PRN (03:08)
[2024-02-15] MEDS: KETOROLAC TROMETH 30 MG/ML 1ML VIAL IV ONE (03:13)
[2024-02-15] MEDS: SODIUM CHL 0.9% IV SCH (03:29)
[2024-02-15] MEDS: METHYLPREDNISOLONE SOD SUCC IV SCH (03:29)
[2024-02-15] MEDS: INSULIN LISPRO (HUMAN) 100 UNITS/ML ML SC SCH ×2 (07:00→21:50)
[2024-02-15] MEDS: PANTOPRAZOLE 40 MG TAB PO SCH (07:56)
[2024-02-15] MEDS: SOD CHL 0.45% 1,000 ML IV SCH (08:10)
[2024-02-15 08:16] LABS: Urine Bacteria FEW /hpf (None Seen); Urine Blood Negative /uL (Negative); Urine Clarity Clear (Clear); Urine Color Colorless (Yellow); Urine Protein, UAD Negative (Negative); Urine Specific Gravity 1.006 (1.001-1.035); Urine Urobilinogen Normal (Negative); Urine WBC 24 /hpf (0 - 5); Urine pH 6.5 (5.0-9.0)
[2024-02-15] MEDS: MORPHINE SULFATE INJ 2 MG/ml SYRG IV PRN (08:31)
[2024-02-15] MEDS: METOPROLOL SUCCINATE XL 50 MG TAB PO SCH (08:36)
[2024-02-15] MEDS: EZETIMIBE 10 MG TAB PO SCH (08:37)
[2024-02-15] MEDS: LORATADINE 10 MG TAB GT SCH (08:37)
[2024-02-15] MEDS: CLOPIDOGREL BISULFATE 75 MG TAB PO SCH (08:37)
[2024-02-15] MEDS: EMPAGLIFLOZIN 10 MG TAB PO SCH (10:00)
[2024-02-15] MEDS: ESCITALOPRAM OXALATE 20 MG PO SCH (10:00)
[2024-02-15] MEDS: ARIPIPRAZOLE 10 MG PO SCH (10:00)
--- NOTE | 2024-02-15 10:56 | DVH ---
XY CHEST TWO VIEWS ROUTINE, HISTORY: pNEUMONIA COMPARISON: XY CHEST TWO VIEWS ROUTINE on DOS: 07/13/23, CXR2 on DOS: 01/15/22, CHEST TWO VIEWS ROUTIN E on DOS: 01/15/22 XY CHEST TWO VIEWS ROUTINE on DOS: 07/13/23, CXR2 on DOS: 01/15/22, CHEST TWO VIEWS ROUTINE on DOS: TECHNICAL DATA: 2 view of the chest was obtained. FINDINGS: Lines and tubes: None Cardiomediastinal silhouette: normal Pulmonary vasculature: normal Lung expansion: normal Lung airspace: normal Lung interstitium: normal Pleura: normal Pneumothorax: no Bones: Unremarkable Other: no IMPRESSION: No acute intrathoracic abnormality.
[2024-02-15] MEDS: GABAPENTIN 300 MG CAP ONE (11:05)
[2024-02-15] MEDS: GABAPENTIN 300 MG CAP PO SCH (11:15)
[2024-02-15] MEDS: HYDROmorphone HCL 2 MG/ML VL/or syr IV PRN (21:25)
[2024-02-15 21:42] LABS: Basophils # (auto) 0 10 ^3/uL (0-0.2); Eosinophils # (auto) 0 10 ^3/uL (0-0.8); Monocytes # (auto) 0.2 10 ^3/uL (0-1.3); Nucleated Red Blood Cells % 0.1 %
[2024-02-15 21:43] LABS: Basophils % (auto) 0.4 % (0.0-2.0); Hematocrit 37.3 % (36.0-46.0); Hemoglobin 11.9 g/dL (12.2-16.2); Lymphocytes % (auto) 14.5 % (10.0-50.0); Mean Corpuscular Hemoglobin 25.6 pg (28.0-32.0); Mean Corpuscular Hgb Conc. 31.9 g/dL (32.0-36.0); Mean Corpuscular Volume 80.3 fL (80.0-100.0); Monocytes % (auto) 2.9 % (0.0-12.0); Neutrophils # (auto) 5.7 10 ^3/uL (1.6-8.6); Neutrophils % (auto) 82.2 % (37.0-80.0); Platelet Count (auto) 272 10^3/uL (140-450); Red Blood Cells 4.65 10^6/uL (4.0-5.20); Red Cell Distribution Width 17.3 % (11.8-14.3)
[2024-02-15 21:57] LABS: Alanine Aminotransferase 11 U/L (7-40); Alkaline Phosphatase 95 U/L (46-116); Anion Gap 8 (5-15); Aspartate Aminotransferase < 8 U/L (13-40); Bilirubin, Total 0.3 mg/dL (0.2-1.0); Blood Urea Nitrogen 13 mg/dL (9-23); Calcium 9.6 mg/dL (8.7-10.4); Carbon Dioxide 21 mmol/L (20-31); Chloride 112 mmol/L (98-107); Glucose 167 mg/dL (74-106); Potassium 4.4 mmol/L (3.5-5.1); Sodium 141 mmol/L (136-145); Total Protein 6.7 g/dL (5.7-8.2)
--- NOTE | 2024-02-15 22:38 | DVHHP2 ---
Admitting Diagnosis: Acute pleuritic chest pains Shortness of breath, wheezing Productive cough History of Present Illness 63 year-old middle-aged -[place] female with a known history of COPD, hypertension, NIDDM, hypercholesterolemia, obesity and CAD status post PTCA 2007 and fibromyalgia is directly admitted for further eval and management of recurrent L lower rib cage chest pains, at times pleuritic in nature referring to back, attended with shortness of breaths On and off for past two days. She tried sublingual nitroglycerin without significant relief. Late This evening, patient had recurrence of L anterior Chest wall pain pleuritic in nature that woke her up. She also reports several additional symptoms of chest congestion cough and wheezing Upon receiving phone call from her spouse Mr. Cisco Fulton, I recommended patient to receive further evaluation at hospital settings Onset/duration: x 2 days-worse this morning Severity: 5-7/10 Location: Left lower rib cage, Anterior chest wall pains Characteristic: Pleuritic, chest tightness, wheezing Referral: Back Associated symptoms: Chest congestion shortness of breath wheezing Aggravated by: Deep inspiration, cough #1 Alleviated by: Bronchodilator Med-Neb treatment Risk factors: NIDDM, hypertension, CAD COPD, obesity Upon arrival to medical floor, she appeared to be in discomfort due to chest pains and SOB. She appeared to be hypertensive, tachypneic and hypovolemic Her 12-lead EKG was remarkable for ASMI Her troponins were reported to be in normal range ng/L. Given cardiac and pulmonary risk factors, I recommended her to receive hospitalization.. Following to my case discussion with housekeeping department worker, I admitted patient to medical floor with telemetry Past Medical History Past medical history records: Reviewed Cardiovascular history: Long history of hypertension complicated by hypertensive CAD Suffered acute NC and noted to have occlusive disease of RCA requiring PTCA followed by stent placement in the year 2007 Patient suffers chronic stable angina requiring multiple hospitalization She received multiple stress EKG test and angiographic study including last one in November 2021 Respiratory history: COPD, obesity hypoventilation syndrome Gastrointestinal history: GE reflux Genitourinary history: Recurrent UTI over the past 12 months Endocrine history: Fairly well-controlled NIDDM-hemoglobin A1c stays under 6.5% to 7% Currently on metformin Exogenous obesity-BMI 41 kg/m, verbally counseled to lose weight of 100 pounds through diet and exercise Hypercholesterolemia currently on Lipitor-and Ecotrin Neurology history: History of CVA with no residual focal deficit Musculoskeletal history: Severe osteoarthritis affecting hip and knees- Received R total hip arthroplasty by Dr. 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 History of smoking: Cigarettes: Never-admits to have exposure to the passive smoking History of smoking E cigarettes: Denies History of smoking marijuana: Denies History of drinking alcohol: Denies History of substance abuse: Denies Patient Family History: Cardiovascular disease G8 FATHER, Onset: - Diabetes mellitus FHx: cancer G8 MOTHER, Onset: - Hypertension G8 MOTHER, Onset: - G8 FATHER, Onset: - Allergies: Coded Allergies: Benzalkonium Chloride (Verified Allergy, Unknown, 07/08/18) Lisinopril (Verified Allergy, Unknown, 07/08/18) Home Meds Active Scripts Sulfamethoxazole W/Trimethopri (Bactrim Ds Tablet) 1 Tab Tb, 1 TAB PO BID for 7 Days, #14 TAB Prov:SULY CARDOZO MD 09/17/23 Loratadine (CLARITIN TABLET) 10 Mg Tb, 10 MG GT DAILY, #20 TAB Prov:SULY CARDOZO MD 01/20/22 Albuterol Sulfate (Ventolin) 2.5 Mg/0.5 Ml Nb, 2.5 MG NEB Q4HPRN PRN for 50 Days, #100 ML 1 Refill Prov:SULY CARDOZO MD 01/20/22 Reported Medications Oxycodone Hcl (OXYCODONE HCL) 5 Mg Tb, 30 MG PO BID, TAB 09/12/23 Gabapentin (Gabapentin) 300 Mg Cap, 1 CAP PO PRN PRN for MODERATE PAIN (4-6 PAIN SCALE), #90 CAP 5 Refills 09/12/23 Valsartan-Hydrochlorothiazide (Diovan Hct) 160 /12.5 Tab, 1 TAB PO DAILY 05/15/23 Meloxicam (Meloxicam) 15 Mg Tab, 1 TAB PO DAILY 05/15/23 Aripiprazole (Aripiprazole) 10 Mg Tab, 1 TAB PO DAILY 05/15/23 Metformin Hydrochloride (Metformin Hcl Er) 750 Mg Tab, 1 TAB PO DAILY, #90 TAB 3 Refills 05/12/23 Rosuvastatin Calcium (Crestor) 20 Mg Tab, 1 TAB PO DAILY for LOWER BAD CHOLESTEROL, #30 TAB 5 Refills 04/03/22 Pantoprazole Sodium Sesquihydr (Pantoprazole Sodium) 40 Mg Tab, 40 MG PO QAM for GERD, TAB PRIOR TO BREAKFAST PER PT SHOULD STILL BE ON THIS MEDICATION EVEN THOUGH NO P/UP HISTORY IN EXTERNAL MED 11/21/21 Ezetimibe (Zetia) 10 Mg Tab, 1 TAB PO DAILY for High Cholesterol, #30 TAB 5 Refills 11/21/21 Empagliflozin (Jardiance) 10 Mg Tab, 10 MG PO DAILY for DIABETES, TAB 11/21/21 Escitalopram Oxalate (ESCITALOPRAM OXALATE) 20 Mg Tab, 1 TAB PO DAILY for DEPRESSION, #30 TAB 5 Refills 11/21/21 Metoprolol Succinate (Metoprolol Succinate Er) 50 Mg Tab, 50 MG PO DAILY for BLOOD PRESSURE NEW DISCHARGE MED IS METOPROLOL SUCC ER 25 MG BID, BUT PATIENT HAS NOT STARTED TAKING YET AND WOULD LIKE TO BE KEPT ON 50 MG DAILY 07/12/20 Mupirocin Calcium (Topical) (MUPIROCIN) 2 % Cre, 1 APPLIC TOP BID for Skin infection PER PATIENT'S HOME MED LIST: APPLY TOPICALLY TO OPEN WOUNDS BID PT USES 2 GRAMS BID 01/18/20 Docusate Sodium (DOCQLACE) 100 Mg Cap, 100 MG PO DAILY PRN for FOR CONSTIPATION, CAP 06/04/18 Albuterol Sulfate (VENTOLIN MDI) 90 Mcg Ih, 2 PUFF IN Q6HPRN PRN for SHORTNESS OF BREATH EXTERNAL MED HX SAYS Q4HR. PATIENT USES Q6HR PRN 06/04/18 Clopidogrel Bisulfate (CLOPIDOGREL) 75 Mg Tab, 75 MG PO DAILY 06/04/18 Current Medications Current Medications Medications (Trade) Dose Ordered Sig/Kitty Route PRN Reason Start Time Stop Time Status Last Admin Nitroglycerin (Ntrostat Sublingual) 0.4 mg Q5MINP PRN SL FOR CHEST PAIN 02/15/24 01:15 Morphine Sulfate 2 mg Q30M PRN IV FOR CHEST PAIN 02/15/24 01:15 02/15/24 13:42 Albuterol (Ventolin Medneb) 2.5 mg Q4HPRN PRN NEB SWOB 02/15/24 01:15 02/15/24 03:08 Clopidogrel Bisulfate (Plavix) 75 mg DAILY PO 02/15/24 10:00 02/15/24 08:37 Docusate Sodium (Colace Capsule) 100 mg DAILY PRN PO FOR CONSTIPATION 02/15/24 01:15 Empaglifozin (Jardiance) 10 mg DAILY PO 02/15/24 10:00 EZETIMIBE (Zetia) 10 mg DAILY PO 02/15/24 10:00 02/15/24 08:37 Gabapentin (Neurontin Capsule) 300 mg BID PO 02/15/24 10:00 02/15/24 11:15 Loratadine (Claritin Tablet) 10 mg DAILY GT 02/15/24 10:00 02/15/24 08:37 Metoprolol Succinate (Toprol Xl) 50 mg DAILY PO 02/15/24 10:00 02/15/24 08:36 Pantoprazole Sodium (Protonix Tablet) 40 mg QAM PO 02/15/24 07:00 02/15/24 07:56 Patient Own Medication 1 tab DAILY PO 02/15/24 10:00 Patient Own Medication 1 tab DAILY PO 02/15/24 10:00 Ceftriaxone Sodium/Dextrose 50 ml @ 50 mls/hr DAILY IV 02/15/24 01:30 02/15/24 13:43 Hydromorphone HCl (Dilaudid Injection) 0.6 mg Q4HP PRN IV Moderate Pain(4-6/10) 02/15/24 01:30 Hold Hydromorphone HCl (Dilaudid Injection) 1 mg Q4HP PRN IV SEVERE PAIN (7-10 PAIN SCALE) 02/15/24 01:30 Sodium Chloride 1,000 ml @ 50 mls/hr Q20H IV 02/15/24 01:30 02/15/24 08:10 Methylprednisolone Sodium Succinate 20 mg/Sodium Chloride 100 ml @ 200 mls/hr Q8HR IV 02/15/24 01:30 02/15/24 16:52 Ketorolac Tromethamine (Toradol Injection) 15 mg Q6HPRN PRN IV MODERATE PAIN (4-6 PAIN SCALE) 02/15/24 01:30 02/20/24 01:29 Insulin Human Lispro (HumaLOG) AC SC 02/15/24 07:00 02/15/24 13:52 Insulin Human Lispro (HumaLOG) [facility] [address] 02/15/24 22:00 Review of Systems Constitutional: Reports generalized weakness, low-grade fever, chills, denies weight loss HEENT: Denies headache, nasal/maxillary sinus congestion, rhinorrhea, lacrimation Denies conjunctival pains, denies hearing or visual deficits NECK: No symptoms of neck pains or stiffness CHEST: Reports chest pains, cough congestion, shortness of breath costochondral tenderness, RS: Reports cough, chest congestion, wheezing, shortness of breath, pleurisy CVS: Reports angina, shortness of breath, denies palpitation, : Reports heartburn, GE reflux, abdominal pains, N/ V/D, melena : Denies symptoms of frequency, urgency, dysuria, hematuria BACK: Reports chronic back pains, radicular pains MS: Reports generalized aches and pains from fibromyalgia SKIN: Multiple scabbed wounds of upper and lower extremities EXTs: Multiple scabbed wounds no edema, no rash, no open wounds MEDICAL AIDE: No altered mental status, focal deficits, no GTC seizures, weakness PSYCH: bipolar disorder -denies suicidal thoughts ENDO: Denies excessive thirst or urination, denies intolerance to cold or heat HEM/ONC: No symptoms of anemia, leukemia or multiple myeloma ALLERGY no symptoms of allergy Vital Signs Vital Signs Date Time Temp Pulse Resp B/P (MAP) Pulse Ox O2 Delivery O2 Flow Rate FiO2 02/15/24 16:42 98.7 61 18 143/67 (92) 99 98.7 02/15/24 09:46 Room Air 0.0 02/15/24 09:46 21 Physical Exam General appearance: Well-developed, morbidly obese middle-aged AA female Appears in discomfort due to chest pains, SOB Head: Normocephalic nontraumatic Eyes: EOMI, AMBAR, sclera nonicteric, conjunctive- pale ENT: Mild bilateral nasal congestion, bilateral TM mildly hyperemic NSL bilateral symmetrical, oral mucosa dry +2 Neck: Supple, carotid upstroke +2, trachea R off midline, JVD 1 cm No stridor, no goiter, no thyroid or lymph node enlargement No use of accessory muscles Chest: Emphysema, Bilateral symmetrical expansions of anterior wall, Costochondral tenderness at 6, 7, 8 ICS Breasts: I exam - Bilateral symmetrical, Lungs: clear breath sounds all over except reduced at bases A few late inspiratory rales at L lower base present CVS: PMI- 1 cm lateral to L MCL in fifth ICS , S1- S2 NSR no S3 GI: Abdomen soft, obese, bowel sounds normoactive No focal tenderness, no rebound tenderness No hepatosplenomegaly, no mass no hernia , : No CVA tenderness, no bladder mass palpable, genitalia-NE SKIN: Turgor -dry, color pale, no rash, no icterus, Multiple scar of scabbed lesions No varicosity EXTs: No edema, color pink, no rash, no ecchymosis distal pulses +2 capillary refill <2 seconds, Scars of well healed scabbed lesions JOINTS; reduced range of motion BACK: No apparent lumbosacral spinal muscle tenderness, LYMPH NODES: No cervical, axillary or inguinal lymph nodes Neuro: Awake alert oriented 4, coherent, all cognitives- intact No pronator drift, no focal motor deficit, Changes of DPN, DTR +2, gait steady PSYCH: Affect mildly depressed-denies suicidal ideation Wounds Multiple scars of healed wounds over bilateral upper and lower extremities Results Labs Test 02/15/24 19:19 02/15/24 14:37 02/15/24 07:57 02/15/24 02:15 Range/Units POC Glucose 118 H 70-106 mg/dl Troponin I High Sensitivity 20 </=34 ng/L Urine Color Colorless Yellow Urine Clarity Clear Clear Urine pH 6.5 5.0-9.0 Urine Specific [place] 1.006 1.001-1.035 Urine Protein Negative Negative Urine Ketones Negative Negative Urine Blood Negative Negative /uL Urine Nitrite Negative Negative Urine Bilirubin Negative Negative Urine Urobilinogen Normal Negative mg/dL Urine Leukocyte Esterase 2+ Negative /uL Urine RBC 1 0 - 4 /hpf Urine WBC 24 0 - 5 /hpf Urine Squamous Epithelial Cells Few <5 /hpf Urine Bacteria Few H None Seen /hpf Urine Glucose Normal Normal mg/dL Phosphorus Level 2.8 2.4-5.1 mg/dL Magnesium Level 1.8 1.6-2.6 mg/dL XY CHEST TWO VIEWS ROUTINE, HISTORY: pNEUMONIA COMPARISON: XY CHEST TWO VIEWS ROUTINE on DOS: 07/13/23, CXR2 on DOS: 01/15/22, CHEST TWO VIEWS ROUTINE on DOS: 01/15/22 XY CHEST TWO VIEWS ROUTINE on DOS: 07/13/23, CXR2 on DOS: 01/15/22, CHEST TWO VIEWS ROUTINE on DOS: 01/15/22 TECHNICAL DATA: 2 view of the chest was obtained. FINDINGS: Lines and tubes: None Cardiomediastinal silhouette: normal Pulmonary vasculature: normal Lung expansion: normal Lung airspace: normal Lung interstitium: normal Pleura: normal Pneumothorax: no Bones: Unremarkable Other: no IMPRESSION: No acute intrathoracic abnormality. ATED BY: EDMOND LUNA MD Primary Diagnosis Acute chest pains a. Rule out [place] b. Possible pneumonitis with pleurisy Acute exacerbation of COPD Admitting Diagnosis: 1. Acute chest pains a. Rule out [place] b. Possible pneumonitis with pleurisy 2. Acute exacerbation of COPD 3. Moderately severe hypovolemia 4. Uncontrolled hypertension 5. Fairly well controlled NIDDM 6. Hypercholesterolemia 2' Diagnosis/Comorbidities 1. Morbid obesity in a young adult with BMI> 40 kg per m2 2. Chronic back pains 3. Osteoarthritis of bilateral hips and knees 4. Chronic narcotic dependence Medical decision making Overall patient's hemodynamic condition appears to be clinically ill from development of acute chest pains * Pleuritic nature of the pain suggest possibility of lower respiratory tract infection with pleurisy * Given cardiac risk factors, recommended serial EKGs and enzymes Initial EKGs , troponins cardiac enzymes are unremarkable for acute [place] She has received multiple cardiac workup including coronary angiogram The last coronary angiogram was in late summer of 2022. There was no in stent coronary artery stenosis. * For given symptoms of chest congestion, wheezing shortness of breath Will order chest x-ray to rule out pneumonia while starting patient on IV antibiotics, bronchodilator med neb Rx * The patient is considered immunocompromised host for given history of NIDDM, morbid obesity and COPD * Initial lab work next CBC CMP are pending * Chest x-ray shows * Also noticed uncontrolled hypertension-continue patient on valsartan, metoprolol * Reconciled patient's home medications * Education on long-term management of diabetes hypertension and obesity was given Diabetic education Recommended to comply with ADA 1800 calorie diet and exercise Recommended intentional weight loss of 100 lbs Rec. Monitoring of hemoglobin A1c, renal functions every 3-4 months Rec, biannual physical exam, annual dental eye and peripheral artery ultrasound Annual 24 hour microalbuminuria Obesity education Current BMI> 40 kg per m2 Recommended intentional weight loss of 100 diet and exercise Informed patient about morbid obesity related health problems such as Obesity hypoventilation, hypoxia, cardiac arrhythmias, embolic events leading to CVA Lifelong disability, diabetes, arthritis requiring arthroplasties and high vulnerability for COVID infections. Patient agrees to follow my recommendations Chronic narcotic dependence Discussed in length about narcotic dependence and health problems including Acute hypoxic respiratory failure, and fatal cardiac arrhythmias from hypoxia Encourage patient for alternative pain management Measures as tolerated The patient agrees to follow my recommendations Plan Treatment plans as of today Admit to medical floor with telemetry Obtain sputum and blood cultures Chest x-ray PA and lateral view Place patient on IV antibiotics, bronchodilators med rec treatments Gentle IV hydration Serial EKGs and enzymes Continue NTG sublingual p.r.n. for angina Continue valsartan and metoprolol Continue Lipitor and Plavix Consider 2D echo exam Consider V/Q scan VTE precautions Update patient The patient and/or family is well informed by me about 1. Clinical impression, treatment plans, side effects of medications, course of the disease and guarded prognosis 2. All patient's question/ concerns raised by patient are satisfactorily addressed by me 3. Education on long-term management of morbid obesity, hypertension and diabetes-given Plan discussed with: Patient, Spouse Code Visit Code Visit Total Time (mins): 120 (Including critical care) SULY CARDOZO MD Feb 15, 2024 22:38
[2024-02-16] VITALS (11 sets, daily range): BP systolic 119–172; BP diastolic 53–74; PULSE 53–63; RESP 17–22; TEMP 97.5–98; O2SAT 95–100
[2024-02-16] MEDS: SODIUM CHL 0.9% IV SCH
[2024-02-16] MEDS: METHYLPREDNISOLONE SOD SUCC IV SCH
[2024-02-16] MEDS: VALSARTAN 80 MG TAB PO SCH (02:31)
[2024-02-16] MEDS: KETOROLAC TROMETH 30 MG/ML 1ML VIAL IV PRN (05:38)
[2024-02-16 07:15] LABS: Basophils # (auto) 0 10 ^3/uL (0-0.2); Basophils % (auto) 0.3 % (0.0-2.0); Eosinophils # (auto) 0 10 ^3/uL (0-0.8); Hematocrit 38.1 % (36.0-46.0); Lymphocytes # (auto) 1.2 10 ^3/uL (0.4-5.4); Lymphocytes % (auto) 16.6 % (10.0-50.0); Mean Corpuscular Hemoglobin 25.1 pg (28.0-32.0); Mean Corpuscular Hgb Conc. 31.6 g/dL (32.0-36.0); Mean Corpuscular Volume 79.4 fL (80.0-100.0); Monocytes # (auto) 0.3 10 ^3/uL (0-1.3); Monocytes % (auto) 3.6 % (0.0-12.0); Neutrophils # (auto) 5.7 10 ^3/uL (1.6-8.6); Neutrophils % (auto) 79.5 % (37.0-80.0); Nucleated Red Blood Cells % 0.1 %; Platelet Count (auto) 279 10^3/uL (140-450); Red Cell Distribution Width 17.5 % (11.8-14.3); White Blood Cell 7.1 10^3/uL (4.4-10.8)
[2024-02-16 07:40] LABS: Albumin 3.8 g/dL (3.2-4.8); Alkaline Phosphatase 89 U/L (46-116); Anion Gap 8 (5-15); Aspartate Aminotransferase < 8 U/L (13-40); Blood Urea Nitrogen 12 mg/dL (9-23); Calcium 9.7 mg/dL (8.7-10.4); Carbon Dioxide 22 mmol/L (20-31); Chloride 111 mmol/L (98-107); Cholesterol 198 mg/dL (< 200); Glucose 154 mg/dL (74-106); HDL Cholesterol 53 mg/dL (40-59); LDL Cholesterol 134 mg/dL (< 100); Potassium 4.2 mmol/L (3.5-5.1); Sodium 141 mmol/L (136-145); Triglycerides 79 mg/dL (< 150)
[2024-02-16 07:41] LABS: Bilirubin, Total 0.3 mg/dL (0.2-1.0); Total Protein 6.5 g/dL (5.7-8.2)
[2024-02-16 07:46] LABS: Alanine Aminotransferase < 9 U/L (7-40)
[2024-02-16] MEDS: cloNIDine HCL 0.1 MG TAB PO ONE (11:00)
[2024-02-16] MEDS ORDERED: LOSARTAN POTASSIUM 50 MG TAB PO ONE (11:00)
--- NOTE | 2024-02-16 23:51 | DVHPN2 ---
Progress Note - Dictate Date Seen: Feb 16, 2024 Has the PT tested + for MRSA If YES, has PT been informed?: No Medical Necessity Reason Pt with a Central, PICC or Fol: No Medical Necessity Reason IV antibiotics IV steroids Pain management Acute chest pains Subjective The patient is currently being evaluated and treated for symptoms of acute chest pains suggestive of possible cardiac origin VS developing pneumonitis Complicated by pleurisy. * Chest x-ray suggestive of infiltrate from chronic bronchitis and COPD * The patient was continued on IV antibiotics, steroids and bronchodilators med neb treatments * Moreover she reports to have chronic pains due to fibromyalgia Overnight events are reviewed through medical chart and case discussion with patient's assigned RN while making rounds on patient on the day of service vital signs Vital Sign Date Time Temp Pulse Resp B/P (MAP) Pulse Ox O2 Delivery O2 Flow Rate FiO2 02/16/24 20:09 62 19 124/76 02/16/24 20:00 100 Nasal Cannula* 2 28 02/16/24 17:00 98.0 98.0 Total Intake and Output 02/15/24 02/15/24 02/16/24 15:00 23:00 07:00 Intake Total 290 ml 900 ml 815 ml Output Total 1200 ml Balance 290 ml -300 ml 815 ml medications Current Medications Medications Dose Ordered Sig/Kitty Route Start Time Stop Time Status Last Admin Dose Admin Nitroglycerin 0.4 mg Q5MINP PRN SL 02/15/24 01:15 Morphine Sulfate 2 mg Q30M PRN IV 02/15/24 01:15 02/15/24 13:42 2 MG Albuterol 2.5 mg Q4HPRN PRN NEB 02/15/24 01:15 02/15/24 03:08 2.5 MG Clopidogrel Bisulfate 75 mg DAILY PO 02/15/24 10:00 02/16/24 09:46 75 MG Docusate Sodium 100 mg DAILY PRN PO 02/15/24 01:15 Empaglifozin 10 mg DAILY PO 02/15/24 10:00 02/16/24 09:46 10 MG EZETIMIBE 10 mg DAILY PO 02/15/24 10:00 02/16/24 09:46 10 MG Gabapentin 300 mg BID PO 02/15/24 10:00 02/16/24 21:38 300 MG Loratadine 10 mg DAILY GT 02/15/24 10:00 02/16/24 09:46 10 MG Metoprolol Succinate 50 mg DAILY PO 02/15/24 10:00 02/16/24 09:49 50 MG Pantoprazole Sodium 40 mg QAM PO 02/15/24 07:00 02/16/24 06:57 40 MG Patient Own Medication 1 tab DAILY PO 02/15/24 10:00 Patient Own Medication 1 tab DAILY PO 02/15/24 10:00 Ceftriaxone Sodium/Dextrose 50 ml @ 50 mls/hr DAILY IV 02/15/24 01:30 02/16/24 10:03 50 MLS/HR Hydromorphone HCl 0.6 mg Q4HP PRN IV 02/15/24 01:30 Hold Hydromorphone HCl 1 mg Q4HP PRN IV 02/15/24 01:30 02/16/24 20:09 1 MG Sodium Chloride 1,000 ml @ 50 mls/hr Q20H IV 02/15/24 01:30 02/15/24 21:26 50 MLS/HR Ketorolac Tromethamine 15 mg Q6HPRN PRN IV 02/15/24 01:30 02/20/24 01:29 02/16/24 05:38 15 MG Insulin Human Lispro AC SC 02/15/24 07:00 02/16/24 11:30 2 UNITS Insulin Human Lispro HS SC 02/15/24 22:00 02/15/24 21:50 2 UNITS Methylprednisolone Sodium Succinate 20 mg/Sodium Chloride 100 ml @ 200 mls/hr Q12HR IV 02/16/24 00:00 02/16/24 13:19 200 MLS/HR Valsartan 160 mg Q12H PO 02/17/24 08:00 objective physical Exam General appearance: Well-developed, morbidly obese middle-aged AA female Appears in discomfort due to chest pains, SOB Head: Normocephalic nontraumatic Eyes: EOMI, AMBAR, sclera nonicteric, conjunctive- pale ENT: Mild bilateral nasal congestion, bilateral TM mildly hyperemic NSL bilateral symmetrical, oral mucosa dry +2 Neck: Supple, carotid upstroke +2, trachea R off midline, JVD 1 cm No stridor, no goiter, no thyroid or lymph node enlargement No use of accessory muscles Chest: Emphysema, Bilateral symmetrical expansions of anterior wall, Costochondral tenderness at 6, 7, 8 ICS Breasts: Deferred Lungs: clear breath sounds all over except reduced at bases A few late inspiratory rales at L lower base present CVS: PMI- 1 cm lateral to L MCL in fifth ICS , S1- S2 NSR no S3 GI: Abdomen soft, obese, bowel sounds normoactive No focal tenderness, no rebound tenderness No hepatosplenomegaly, no mass no hernia , : No CVA tenderness, no bladder mass palpable, genitalia-NE SKIN: Turgor -dry, color pale, no rash, no icterus, Multiple scar of scabbed lesions No varicosity EXTs: No edema, color pink, no rash, no ecchymosis distal pulses +2 capillary refill <2 seconds, Scars of well healed scabbed lesions JOINTS; reduced range of motion BACK: No apparent lumbosacral spinal muscle tenderness, LYMPH NODES: No cervical, axillary or inguinal lymph nodes Neuro: Awake alert oriented 4, coherent, all cognitives- intact No pronator drift, no focal motor deficit, Changes of DPN, DTR +2, gait steady PSYCH: Affect mildly depressed-denies suicidal ideation laboratory and microbiology Laboratory Tests 02/16/24 06:40 Test 02/16/24 06:40 Range/Units Serum Glucose 154 H 74-106 mg/dL Problem List 1. Acute chest pains a. Rule out [place] b. Possible pneumonitis with pleurisy 2. Acute exacerbation of COPD 3. Moderately severe hypovolemia 4. Uncontrolled hypertension 5. Fairly well controlled NIDDM 6. Hypercholesterolemia 2' Diagnosis/Comorbidities 1. Morbid obesity in a young adult with BMI> 40 kg per m2 2. Chronic back pains 3. Osteoarthritis of bilateral hips and knees 4. Chronic narcotic dependence Medical decision making Overall patient's hemodynamic condition appears to be clinically ill from development of acute chest pains * Pleuritic nature of the pain suggest possibility of lower respiratory tract infection with pleurisy * Given cardiac risk factors, recommended serial EKGs and enzymes Her initial and serial EKGs/serum troponins have been unremarkable for acute [place] She has received multiple cardiac workup including coronary angiogram The last coronary angiogram was in late summer of 2022. There was no in stent coronary artery stenosis. * For given symptoms of chest congestion, wheezing shortness of breath She received chest x-ray which rules out pneumonia but infiltrative due to Chronic bronchitis. Patient is responding to current IV antibiotics IV steroids and bronchodilator med neb Rx * The patient is considered immunocompromised host for given history of NIDDM, morbid obesity and COPD * Also noticed uncontrolled hypertension-continue patient on valsartan, metoprolol * Reconciled patient's home medications * Education on long-term management of diabetes hypertension and obesity was given Diabetic education Recommended to comply with ADA 1800 calorie diet and exercise Recommended intentional weight loss of 100 lbs Rec. Monitoring of hemoglobin A1c, renal functions every 3-4 months Rec, biannual physical exam, annual dental eye and peripheral artery ultrasound Annual 24 hour microalbuminuria Obesity education Current BMI> 40 kg per m2 Recommended intentional weight loss of 100 diet and exercise Informed patient about morbid obesity related health problems such as Obesity hypoventilation, hypoxia, cardiac arrhythmias, embolic events leading to CVA Lifelong disability, diabetes, arthritis requiring arthroplasties and high vulnerability for COVID infections. Patient agrees to follow my recommendations Chronic narcotic dependence Discussed in length about narcotic dependence and health problems including Acute hypoxic respiratory failure, and fatal cardiac arrhythmias from hypoxia Encourage patient for alternative pain management Measures as tolerated The patient agrees to follow my recommendations Treatment plans as of today Admit to medical floor with telemetry Await sputum and blood cultures results Reviewed Chest x-ray PA and lateral view Place patient on IV antibiotics, bronchodilators med rec treatments Gentle IV hydration Reviewed results of Serial EKGs and enzymes-acute [place] ruled out Continue NTG sublingual p.r.n. for angina Continue valsartan and metoprolol Continue Lipitor and Plavix VTE precautions Update patient The patient and/or family is well informed by me about 1. Clinical impression, treatment plans, side effects of medications, course of the disease and guarded prognosis 2. All patient's question/ concerns raised by patient are satisfactorily addressed by me 3. Education on long-term management of morbid obesity, hypertension and diabetes-given Dietary Evaluation Review Recommendations by RD: Dietary education by RD, Decrease Calorie Intake Expected Outcomes/Goals: Intentional weight loss can help improve symptoms of sleep apnea and hypoxia Can also help improve symptoms of cor pulmonale Plan discussed with: Patient Total Time (mins): 45 SULY CARDOZO MD Feb 16, 2024 23:51
[2024-02-17] VITALS (13 sets, daily range): BP systolic 113–176; BP diastolic 68–89; PULSE 50–77; RESP 17–20; TEMP 97.3–98; O2SAT 96–100
[2024-02-17] MEDS: cloNIDine HCL 0.1 MG TAB PO ONE (05:16)
[2024-02-17] MEDS ORDERED: LOSARTAN POTASSIUM 50 MG TAB PO SCH (08:00)
[2024-02-17] MEDS: VALSARTAN 80 MG TAB PO SCH (10:32)
--- NOTE | 2024-02-17 14:29 | DVHPN2 ---
Progress Note - Dictate Date Seen: Feb 17, 2024 Has the PT tested + for MRSA If YES, has PT been informed?: No Medical Necessity Reason Pt with a Central, PICC or Fol: No Medical Necessity Reason IV antibiotics IV steroids Bronchodilators med neb treatments Subjective The patient is currently being treated for acute exacerbation of COPD * Continued patient on IV antibiotics, bronchodilators intravenous steroids * Also noted uncontrolled hypertension with systolic BP 180/95 * Recommended patient to receive clonidine * Overnight events are reviewed through medical chart and case discussion with patient's assigned RN while making rounds on patient on the day of service vital signs Vital Sign Date Time Temp Pulse Resp B/P (MAP) Pulse Ox O2 Delivery O2 Flow Rate FiO2 02/17/24 11:42 66 18 136/68 02/17/24 10:00 97 Room Air* 0 21 02/17/24 09:00 98.0 98.0 Total Intake and Output 02/16/24 02/16/24 02/17/24 15:00 23:00 07:00 Intake Total 290 ml 700 ml 650 ml Balance 290 ml 700 ml 650 ml medications Current Medications Medications Dose Ordered Sig/Kitty Route Start Time Stop Time Status Last Admin Dose Admin Nitroglycerin 0.4 mg Q5MINP PRN SL 02/15/24 01:15 Morphine Sulfate 2 mg Q30M PRN IV 02/15/24 01:15 02/15/24 13:42 2 MG Albuterol 2.5 mg Q4HPRN PRN NEB 02/15/24 01:15 02/15/24 03:08 2.5 MG Clopidogrel Bisulfate 75 mg DAILY PO 02/15/24 10:00 02/17/24 10:40 75 MG Docusate Sodium 100 mg DAILY PRN PO 02/15/24 01:15 Empaglifozin 10 mg DAILY PO 02/15/24 10:00 02/17/24 11:00 10 MG EZETIMIBE 10 mg DAILY PO 02/15/24 10:00 02/17/24 10:40 10 MG Gabapentin 300 mg BID PO 02/15/24 10:00 02/17/24 10:40 300 MG Loratadine 10 mg DAILY GT 02/15/24 10:00 02/17/24 10:40 10 MG Metoprolol Succinate 50 mg DAILY PO 02/15/24 10:00 02/16/24 09:49 50 MG Pantoprazole Sodium 40 mg QAM PO 02/15/24 07:00 02/17/24 05:16 40 MG Patient Own Medication 1 tab DAILY PO 02/15/24 10:00 Patient Own Medication 1 tab DAILY PO 02/15/24 10:00 Ceftriaxone Sodium/Dextrose 50 ml @ 50 mls/hr DAILY IV 02/15/24 01:30 02/17/24 10:48 50 MLS/HR Hydromorphone HCl 0.6 mg Q4HP PRN IV 02/15/24 01:30 Hold Hydromorphone HCl 1 mg Q4HP PRN IV 02/15/24 01:30 02/17/24 11:12 1 MG Sodium Chloride 1,000 ml @ 50 mls/hr Q20H IV 02/15/24 01:30 02/15/24 21:26 50 MLS/HR Ketorolac Tromethamine 15 mg Q6HPRN PRN IV 02/15/24 01:30 02/20/24 01:29 02/17/24 01:45 15 MG Insulin Human Lispro AC SC 02/15/24 07:00 02/16/24 11:30 2 UNITS Insulin Human Lispro HS SC 02/15/24 22:00 02/15/24 21:50 2 UNITS Methylprednisolone Sodium Succinate 20 mg/Sodium Chloride 100 ml @ 200 mls/hr Q12HR IV 02/16/24 00:00 02/17/24 10:00 200 MLS/HR Valsartan 160 mg Q12H PO 02/17/24 08:00 02/17/24 10:32 160 MG objective Physical Exam General appearance: Well-developed, morbidly obese middle-aged AA female Appears in discomfort due to chest pains, SOB Head: Normocephalic nontraumatic Eyes: EOMI, AMBAR, sclera nonicteric, conjunctive- pale ENT: Mild bilateral nasal congestion, bilateral TM mildly hyperemic NSL bilateral symmetrical, oral mucosa dry +2 Neck: Supple, carotid upstroke +2, trachea R off midline, JVD 1 cm No stridor, no goiter, no thyroid or lymph node enlargement No use of accessory muscles Chest: Emphysema, Bilateral symmetrical expansions of anterior wall, Costochondral tenderness at 6, 7, 8 ICS Breasts: I exam - Bilateral symmetrical, Lungs: clear breath sounds all over except reduced at bases IMPROVEMENT IN A few late inspiratory rales at L lower base present CVS: PMI- 1 cm lateral to L MCL in fifth ICS , S1- S2 NSR no S3 GI: Abdomen soft, obese, bowel sounds normoactive No focal /REBOUND tenderness, No hepatosplenomegaly, no mass no hernia , : No CVA tenderness, no bladder mass palpable, genitalia-NE SKIN: Turgor -dry, color pale, no rash, no icterus, Multiple scar of scabbed lesions No varicosity EXTs: No edema, color pink, no rash, no ecchymosis distal pulses +2 capillary refill <2 seconds, Scars of well healed scabbed lesions JOINTS; reduced range of motion BACK: No apparent lumbosacral spinal muscle tenderness, LYMPH NODES: No cervical, axillary or inguinal lymph nodes Neuro: Awake alert oriented 4, coherent, all cognitives- intact No pronator drift, no focal motor deficit, Changes of DPN, DTR +2, gait steady PSYCH: Affect mildly depressed-denies suicidal ideation laboratory and microbiology Laboratory Tests 02/16/24 06:40 Test 02/16/24 06:40 Range/Units Serum Glucose 154 H 74-106 mg/dL Problem List 1. Acute chest pains........................................ Unimproved a. Ruled out AL b. Possible pneumonitis with pleurisy 2. Acute exacerbation of COPD.......................... Improving 3. Moderately severe hypovolemia 4. Uncontrolled hypertension............................. Unimproved 5. Fairly well controlled NIDDM 6. Hypercholesterolemia 2' Diagnosis/Comorbidities 1. Morbid obesity in a young adult with BMI> 40 kg per m2 2. Chronic back pains 3. Osteoarthritis of bilateral hips and knees 4. Chronic narcotic dependence Assessment/Plan Medical decision making Overall patient's hemodynamic condition appears relatively stable today For improvement in chest congestion cough and shortness of breaths As a result patient is being tapered off from IV Solu-Medrol while continuing On bronchodilators med neb treatment and IV antibiotics Her chest x-ray shows chronic infiltrate * Her serial EKGs and enzymes have been unremarkable for acute AL * Further cardiac workup is not warranted since reason most coronary angiogram as of late summer was unremarkable for occlusive disease Uncontrolled hypertension * Also noticed uncontrolled hypertension-continue patient on valsartan, metoprolol * Reconciled patient's home medications * Education on long-term management of diabetes hypertension and obesity was given Diabetic education Recommended to comply with ADA 1800 calorie diet and exercise Recommended intentional weight loss of 100 lbs Rec. Monitoring of hemoglobin A1c, renal functions every 3-4 months Rec, biannual physical exam, annual dental eye and peripheral artery ultrasound Annual 24 hour microalbuminuria Obesity education Current BMI> 40 kg per m2 Recommended intentional weight loss of 100 diet and exercise Informed patient about morbid obesity related health problems such as Obesity hypoventilation, hypoxia, cardiac arrhythmias, embolic events leading to CVA Lifelong disability, diabetes, arthritis requiring arthroplasties and high vulnerability for COVID infections. Patient agrees to follow my recommendations Chronic narcotic dependence Discussed in length about narcotic dependence and health problems including Acute hypoxic respiratory failure, and fatal cardiac arrhythmias from hypoxia Encourage patient for alternative pain management Measures as tolerated The patient agrees to follow my recommendations Plan Treatment plans as of today Admit to medical floor with telemetry Continue patient on IV antibiotics, bronchodilators med rec treatments Start tapering patient off steroids Continue Gentle IV hydration Add clonidine for management of urgent uncontrolled hypertension Continue NTG sublingual p.r.n. for angina Continue valsartan and metoprolol Continue Lipitor and Plavix VTE precautions Update patient The patient and/or family is well informed by me about 1. Clinical impression, treatment plans, side effects of medications, course of the disease and fair to guarded prognosis 2. All patient's question/ concerns raised by patient are satisfactorily addressed by me 3. Education on long-term management of morbid obesity, hypertension and diabetes-given Prognosis FAIR Dietary Evaluation Review Recommendations by RD: Dietary education by RD, Decrease Calorie Intake Expected Outcomes/Goals: INTENTIONAL WEIGHT LOSS CAN HELP IMPROVE SLEEP APNEA PULMONARY HYPERTENSION Plan discussed with: Patient, Spouse Critical Care Time(min): 45 SULY CARDOZO MD Feb 17, 2024 14:29
[2024-02-17] MEDS: SODIUM CHL 0.9% IV SCH (14:30)
[2024-02-17] MEDS: METHYLPREDNISOLONE SOD SUCC IV SCH (14:30)
[2024-02-17] MEDS: CLOPIDOGREL BISULFATE 75 MG TAB PO SCH (14:45)
[2024-02-17] MEDS: SOD CHL 0.45% 1,000 ML IV SCH (14:45)
[2024-02-17] MEDS: OXYCODONE W/ ACETAMINOPHEN 5/325MG TABLET PO SCH (17:57)
[2024-02-18] VITALS (12 sets, daily range): BP systolic 127–174; BP diastolic 62–88; PULSE 50–72; RESP 18–19; TEMP 97.4–98; O2SAT 92–100
[2024-02-18] MEDS: KETOROLAC TROMETH 30 MG/ML 1ML VIAL IV PRN (03:17)
[2024-02-18] MEDS: cloNIDine HCL 0.1 MG TAB PO PRN (05:42)
[2024-02-18] MEDS: HYDROmorphone HCL 2 MG/ML VL/or syr IV PRN (10:44)
--- NOTE | 2024-02-18 17:58 | MEDREC ---
[facility] ASP Intervention Section I [facility] ASP Intervention: Review courses of therapy (PLEASE CONSIDER REVIEWING COURSE OF THERAPY ACCORDING TO CULTURE RESULTS ) MARLY RINALDI PHARMACIST Feb 18, 2024 17:58
--- NOTE | 2024-02-18 23:52 | DVHPN2 ---
Progress Note - Dictate Date Seen: Feb 18, 2024 Has the PT tested + for MRSA If YES, has PT been informed?: No Medical Necessity Reason Pt with a Central, PICC or Fol: No Medical Necessity Reason IV ANTIBIOTICS IV STEROIDS MANAGEMENT OF UNCONTROLLED HYPERTENSION PAIN MANAGEMENT Subjective The patient seems to be recovering from symptoms of acute exacerbation Of COPD. Patient currently receives IV antibiotics, IV steroids and Bronchodilators med neb treatments. She reports improvement in state of chest congestion and productive cough * She is being tapered off from IV steroids * She continues to have pleuritic chest pains requiring parenteral toradol * Patient also reports to have drowsiness. * Questionable finding of bradycardia and sinus pause * Nurse Ronit clarified to me about wrong patient Overnight events are reviewed through medical chart and case discussion with patient's assigned RN while making rounds on patient on the day of service vital signs Vital Sign Date Time Temp Pulse Resp B/P (MAP) Pulse Ox O2 Delivery O2 Flow Rate FiO2 02/18/24 21:32 133/74 02/18/24 20:00 72 18 Nasal Cannula* 2 28 02/18/24 19:56 94 02/18/24 17:00 98.0 98.0 Total Intake and Output 02/17/24 02/17/24 02/18/24 15:00 23:00 07:00 Intake Total 150 ml 1300 ml 900 ml Balance 150 ml 1300 ml 900 ml medications Current Medications Medications Dose Ordered Sig/Kitty Route Start Time Stop Time Status Last Admin Dose Admin Nitroglycerin 0.4 mg Q5MINP PRN SL 02/15/24 01:15 Morphine Sulfate 2 mg Q30M PRN IV 02/15/24 01:15 02/15/24 13:42 2 MG Albuterol 2.5 mg Q4HPRN PRN NEB 02/15/24 01:15 02/15/24 03:08 2.5 MG Docusate Sodium 100 mg DAILY PRN PO 02/15/24 01:15 Empaglifozin 10 mg DAILY PO 02/15/24 10:00 02/18/24 10:33 10 MG EZETIMIBE 10 mg DAILY PO 02/15/24 10:00 02/18/24 10:35 10 MG Gabapentin 300 mg BID PO 02/15/24 10:00 02/18/24 21:31 300 MG Loratadine 10 mg DAILY GT 02/15/24 10:00 02/18/24 10:35 10 MG Metoprolol Succinate 50 mg DAILY PO 02/15/24 10:00 02/16/24 09:49 50 MG Pantoprazole Sodium 40 mg QAM PO 02/15/24 07:00 02/18/24 06:34 40 MG Patient Own Medication 1 tab DAILY PO 02/15/24 10:00 Patient Own Medication 1 tab DAILY PO 02/15/24 10:00 02/18/24 10:00 1 TAB Ceftriaxone Sodium/Dextrose 50 ml @ 50 mls/hr DAILY IV 02/15/24 01:30 02/18/24 10:27 50 MLS/HR Hydromorphone HCl 0.6 mg Q4HP PRN IV 02/15/24 01:30 Hold Insulin Human Lispro AC SC 02/15/24 07:00 02/18/24 16:40 5 UNITS Insulin Human Lispro HS SC 02/15/24 22:00 02/18/24 21:53 2 UNITS Valsartan 160 mg Q12H PO 02/17/24 08:00 02/18/24 21:32 160 MG Methylprednisolone Sodium Succinate 20 mg/Sodium Chloride 100 ml @ 200 mls/hr Q12HR IV 02/17/24 14:30 02/18/24 21:32 200 MLS/HR Ketorolac Tromethamine 30 mg Q8HR PRN IV 02/17/24 14:30 02/20/24 01:29 02/18/24 03:17 30 MG Oxycodone/ Acetaminophen 2 tab Q6HR PO 02/17/24 18:00 02/18/24 18:11 2 TAB Sodium Chloride 1,000 ml @ 30 mls/hr Q24H IV 02/17/24 14:45 02/17/24 14:45 30 MLS/HR Clopidogrel Bisulfate 75 mg DAILY@LUNCH PO 02/17/24 14:45 02/18/24 11:50 75 MG Hydromorphone HCl 1.2 mg Q4HP PRN IV 02/17/24 14:45 02/18/24 10:44 1.2 MG Clonidine HCl 0.1 mg UD PRN PO 02/17/24 14:45 02/18/24 12:15 0.1 MG objective Physical exam General appearance: Well-developed, morbidly obese middle-aged AA female Appears no apparent distress Head: Normocephalic nontraumatic Eyes: EOMI, AMBAR, sclera nonicteric, conjunctive- pale ENT: Improving ENT congestion NSL bilateral symmetrical, oral mucosa wet Neck: Supple, carotid upstroke +2, trachea R off midline, JVD 1 cm No stridor, no goiter, no thyroid or lymph node enlargement No use of accessory muscles Chest: Emphysema, Bilateral symmetrical expansions of anterior wall, Costochondral tenderness at 6, 7, 8 ICS Breasts: I exam - Bilateral symmetrical, Lungs: clear breath sounds all over except reduced at bases A few late inspiratory rales at L lower base present CVS: PMI- 1 cm lateral to L MCL in fifth ICS , S1- S2 NSR no S3 GI: Abdomen soft, obese, bowel sounds normoactive No focal tenderness, no rebound tenderness No hepatosplenomegaly, no mass no hernia , : No CVA tenderness, no bladder mass palpable, genitalia-NE SKIN: Turgor -dry, color pale, no rash, no icterus, Multiple scar of scabbed lesions No varicosity EXTs: No edema, color pink, no rash, no ecchymosis distal pulses +2 capillary refill <2 seconds, Scars of well healed scabbed lesions JOINTS; reduced range of motion BACK: No apparent lumbosacral spinal muscle tenderness, LYMPH NODES: No cervical, axillary or inguinal lymph nodes Neuro: Drowsy but awakenable oriented 4, coherent, all cognitives- intact No pronator drift, no focal motor deficit, Changes of DPN, DTR +2, gait steady PSYCH: Affect mildly depressed-denies suicidal ideation laboratory and microbiology Laboratory Tests 02/16/24 06:40 Test 02/16/24 06:40 Range/Units Serum Glucose 154 H 74-106 mg/dL Problem List 1. Altered mental status from inadvertent effect of narcotic analgesics 2. Uncontrolled systolic hypertension 3. Acute exacerbation of COPD......................... Improving 4. Acute chest pains......... Improving a. Ruled out AL b. Lower respiratory tract infection c Pleurisy 5. Moderately severe hypovolemia.................... Corrected 6. Fairly well controlled NIDDM 6. Hypercholesterolemia 2' Diagnosis/Comorbidities 1. Morbid obesity in a young adult with BMI> 40 kg per m2 2. Chronic back pains 3. Osteoarthritis of bilateral hips and knees 4. Chronic narcotic dependence Assessment/Plan Medical decision making Overall patient's hemodynamic condition appears to be improving * Noted improvement in chest congestion, shortness of breath and wheezing * Continued tapering patient of IV steroids * Continued patient on IV antibiotics, * No results on sputum or blood cultures * Chest x-ray shows or respiratory infection with chronic infiltrate * Serial EKGs enzymes have been unremarkable for acute AL Uncontrolled hypertension * Continued should on antihypertensive medications * Continued patient on clonidine * Revised dose of valsartan acute flare-up of fibromyalgia * Revised dose of Toradol * Altered mental status From inadvertent effect of narcotic analgesics * Patient was noted to be drowsy but easily awakenable * Dose of IV Dilaudid is revised * Withheld oral Percocet Diabetic education Recommended to comply with ADA 1800 calorie diet and exercise Recommended intentional weight loss of 100 lbs Rec. Monitoring of hemoglobin A1c, renal functions every 3-4 months Rec, biannual physical exam, annual dental eye and peripheral artery ultrasound Annual 24 hour microalbuminuria Obesity education Current BMI> 40 kg per m2 Recommended intentional weight loss of 100 diet and exercise Informed patient about morbid obesity related health problems such as Obesity hypoventilation, hypoxia, cardiac arrhythmias, embolic events leading to CVA Lifelong disability, diabetes, arthritis requiring arthroplasties and high vulnerability for COVID infections. Patient agrees to follow my recommendations Chronic narcotic dependence Discussed in length about narcotic dependence and health problems including Acute hypoxic respiratory failure, and fatal cardiac arrhythmias from hypoxia Encourage patient for alternative pain management Measures as tolerated The patient agrees to follow my recommendations Treatment plans as of today Continue hospital stay at medical floor with telemetry Revised dose of IV Dilaudid and Toradol Continue IV Rocephin, bronchodilators med neb treatments Continued tapering patient off steroids Gentle IV hydration Continue NTG sublingual p.r.n. for angina Continue valsartan and metoprolol Continue Lipitor and Plavix VTE precautions Update patient The patient and/or family is well informed by me about 1. Clinical impression, treatment plans, side effects of medications, course of the disease and fair prognosis 2. All patient's question/ concerns raised by patient are satisfactorily addressed by me 3. Education on long-term management of morbid obesity, hypertension and diabetes-given Prognosis Fair Dietary Evaluation Review Recommendations by RD: Dietary education by RD, Decrease Calorie Intake Comments: Recommended 1800 calorie ADA diet Recommended intentional weight loss through diet and exercise Expected Outcomes/Goals: Improve intentional weight loss and thereby reduce frequency of sleep apnoea Plan discussed with: Patient, Spouse Total Time (mins): 45 SULY CARDOZO MD Feb 18, 2024 23:51
[2024-02-19] VITALS (11 sets, daily range): BP systolic 145–185; BP diastolic 67–87; PULSE 48–70; RESP 17–19; TEMP 97.5–98.3; O2SAT 96–100
[2024-02-19] MEDS ORDERED: OXYCODONE W/ ACETAMINOPHEN 5/325MG TABLET PO PRN (22:00)
[2024-02-19] MEDS: SOD CHL 0.45% 1,000 ML IV SCH (22:06)
--- NOTE | 2024-02-19 23:16 | DVHPN2 ---
Progress Note - Dictate Date Seen: Feb 19, 2024 Has the PT tested + for MRSA If YES, has PT been informed?: No Medical Necessity Reason Pt with a Central, PICC or Fol: No Medical Necessity Reason IV antibiotics Bronchodilators med neb treatments Pain management Subjective The patient seems to be recovering from symptoms of acute exacerbation Of COPD. Patient currently receives IV antibiotics and Bronchodilators med neb treatments While being tapered off from IV steroids. * She reports significant improvement in chest congestion and productive cough * She reports some improvement in pleuritic chest pains with help of parenteral toradol * Patient also reports to have improvement in drowsiness Overnight events are reviewed through medical chart and case discussion with patient's assigned RN while making rounds on patient on the day of service vital signs Vital Sign Date Time Temp Pulse Resp B/P (MAP) Pulse Ox O2 Delivery O2 Flow Rate FiO2 02/19/24 20:52 58 14 143/68 02/19/24 20:48 97.7 100 97.7 02/19/24 10:10 Nasal Cannula* 2 28 Total Intake and Output 02/18/24 02/18/24 02/19/24 15:00 23:00 07:00 Intake Total 150 ml 1000 ml 975 ml Balance 150 ml 1000 ml 975 ml medications Current Medications Medications Dose Ordered Sig/Kitty Route Start Time Stop Time Status Last Admin Dose Admin Nitroglycerin 0.4 mg Q5MINP PRN SL 02/15/24 01:15 Albuterol 2.5 mg Q4HPRN PRN NEB 02/15/24 01:15 02/15/24 03:08 2.5 MG Docusate Sodium 100 mg DAILY PRN PO 02/15/24 01:15 Empaglifozin 10 mg DAILY PO 02/15/24 10:00 02/19/24 08:52 10 MG EZETIMIBE 10 mg DAILY PO 02/15/24 10:00 02/19/24 08:50 10 MG Gabapentin 300 mg BID PO 02/15/24 10:00 02/19/24 21:13 300 MG Loratadine 10 mg DAILY GT 02/15/24 10:00 02/19/24 08:52 10 MG Metoprolol Succinate 50 mg DAILY PO 02/15/24 10:00 02/16/24 09:49 50 MG Pantoprazole Sodium 40 mg QAM PO 02/15/24 07:00 02/19/24 06:04 40 MG Patient Own Medication 1 tab DAILY PO 02/15/24 10:00 Patient Own Medication 1 tab DAILY PO 02/15/24 10:00 02/19/24 08:48 1 TAB Ceftriaxone Sodium/Dextrose 50 ml @ 50 mls/hr DAILY IV 02/15/24 01:30 02/19/24 08:55 50 MLS/HR Insulin Human Lispro AC SC 02/15/24 07:00 02/19/24 17:19 2 UNITS Insulin Human Lispro HS SC 02/15/24 22:00 02/19/24 21:10 2 UNITS Valsartan 160 mg Q12H PO 02/17/24 08:00 02/19/24 20:48 160 MG Ketorolac Tromethamine 30 mg Q8HR PRN IV 02/17/24 14:30 02/20/24 01:29 02/19/24 06:03 30 MG Clopidogrel Bisulfate 75 mg DAILY@LUNCH PO 02/17/24 14:45 02/19/24 12:09 75 MG Hydromorphone HCl 1.2 mg Q4HP PRN IV 02/17/24 14:45 02/19/24 20:22 1.2 MG Clonidine HCl 0.1 mg UD PRN PO 02/17/24 14:45 02/19/24 14:20 0.1 MG Sodium Chloride 1,000 ml @ 10 mls/hr Q24H IV 02/19/24 22:00 02/19/24 22:06 10 MLS/HR Oxycodone/ Acetaminophen 1 tab Q6HR PRN PO 02/19/24 22:00 objective Physical exam General appearance: Well-developed, morbidly obese middle-aged AA female Appears no apparent distress Head: Normocephalic nontraumatic Eyes: EOMI, AMBAR, sclera nonicteric, conjunctive- pale ENT: Improving ENT congestion NSL bilateral symmetrical, oral mucosa wet Neck: Supple, carotid upstroke +2, trachea R off midline, JVD 1 cm No stridor, no goiter, no thyroid or lymph node enlargement No use of accessory muscles Chest: Emphysema, Bilateral symmetrical expansions of anterior wall, Costochondral tenderness at 6, 7, 8 ICS Breasts: I exam - Bilateral symmetrical, Lungs: clear breath sounds all over except reduced at bases Min' late inspiratory rales at L lower base present CVS: PMI- 1 cm lateral to L MCL in fifth ICS , S1- S2 NSR no S3 GI: Abdomen soft, obese, bowel sounds normoactive No focal tenderness, no rebound tenderness No hepatosplenomegaly, no mass no hernia , : No CVA tenderness, no bladder mass palpable, genitalia-NE SKIN: Turgor -dry, color pale, no rash, no icterus, Multiple scar of scabbed lesions No varicosity EXTs: No edema, color pink, no rash, no ecchymosis distal pulses +2 capillary refill <2 seconds, Scars of well healed scabbed lesions JOINTS; reduced range of motion BACK: No apparent lumbosacral spinal muscle tenderness, LYMPH NODES: No cervical, axillary or inguinal lymph nodes Neuro: Awake alert, oriented 4, coherent, all cognitives- intact No pronator drift, no focal motor deficit, Changes of DPN, DTR +2, gait steady PSYCH: Affect mildly depressed-denies suicidal ideation laboratory and microbiology Laboratory Tests 02/16/24 06:40 Test 02/16/24 06:40 Range/Units Serum Glucose 154 H 74-106 mg/dL Problem List 1. Altered mental status................................. Improved from inadvertent effect of narcotic analgesics 2. Uncontrolled systolic hypertension................. Improving 3. Acute exacerbation of COPD......................... Improving 4. Acute chest pains....................................... Improving a. Ruled out [place] b. Lower respiratory tract infection c Pleurisy 5. Acute flare-up of fibromyalgia......................... Improving 6. Fairly well controlled NIDDM 6. Hypercholesterolemia 2' Diagnosis/Comorbidities 1. Morbid obesity in a young adult with BMI> 40 kg per m2 2. Chronic back pains 3. Osteoarthritis of bilateral hips and knees 4. Chronic narcotic dependence Assessment/Plan Medical decision making Overall patient's hemodynamic condition appears to be improving * Noted improvement in chest congestion, shortness of breath and wheezing * Tapered patient off IV steroids * Continued patient on IV antibiotics, * Encouraged patient to be up and out of bed Uncontrolled hypertension............................................ Improving * Continued patient on revised dose of valsartan, metoprolol * Continued patient on clonidine acute flare-up of fibromyalgia........................................ Improving * Generalized pains due to fibromyalgia are improving with help of revised dose of Toradol * Altered mental status...................................................... Improved From inadvertent effect of narcotic analgesics * Altered mental status improves with revised dose of Dilaudid and Percocet Diabetic education Recommended to comply with ADA 1800 calorie diet and exercise Recommended intentional weight loss of 100 lbs Rec. Monitoring of hemoglobin A1c, renal functions every 3-4 months Rec, biannual physical exam, annual dental eye and peripheral artery ultrasound Annual 24 hour microalbuminuria Obesity education Current BMI> 40 kg per m2 Recommended intentional weight loss of 100 diet and exercise Informed patient about morbid obesity related health problems such as Obesity hypoventilation, hypoxia, cardiac arrhythmias, embolic events leading to CVA Lifelong disability, diabetes, arthritis requiring arthroplasties and high vulnerability for COVID infections. Patient agrees to follow my recommendations Chronic narcotic dependence Discussed in length about narcotic dependence and health problems including Acute hypoxic respiratory failure, and fatal cardiac arrhythmias from hypoxia Encourage patient for alternative pain management Measures as tolerated The patient agrees to follow my recommendations Treatment plans as of today Continue hospital stay at medical floor with telemetry Revised dose of IV Dilaudid and Toradol Continue IV Rocephin, bronchodilators med neb treatments Continued tapering patient off steroids Gentle IV hydration Continue NTG sublingual p.r.n. for angina Continue valsartan and metoprolol Continue Lipitor and Plavix Discharge planning for morning VTE precautions Update patient The patient and/or family is well informed by me about 1. Clinical impression, treatment plans, side effects of medications, course of the disease and fair prognosis 2. All patient's question/ concerns raised by patient are satisfactorily addressed by me 3. Education on long-term management of morbid obesity, hypertension and diabetes-given Prognosis Fair Dietary Evaluation Review Recommendations by RD: Dietary education by RD, Decrease Calorie Intake Comments: Recommended 1800 calorie ADA diet Recommended intentional weight loss through diet and exercise Expected Outcomes/Goals: Improve intentional weight loss and thereby reduce frequency of sleep apnoea Plan discussed with: Patient Total Time (mins): 45 SULY CARDOZO MD Feb 19, 2024 23:16
[2024-02-20] VITALS (8 sets, daily range): BP systolic 127–160; BP diastolic 68–86; PULSE 55–67; RESP 17–19; TEMP 37.1; O2SAT 96–98
--- NOTE | 2024-02-20 13:26 | DVHPN2 ---
Progress Note - Dictate Date Seen: Feb 20, 2024 Has the PT tested + for MRSA If YES, has PT been informed?: No Medical Necessity Reason Pt with a Central, PICC or Fol: No Medical Necessity Reason Continued on IV antibiotics until discharge Being discharged home today Subjective The patient seems to be recovering from symptoms of acute exacerbation Of COPD. She reports significant improvement in chest congestion and productive cough * She denies new symptoms. She is being discharged home today * Continued patient on IV antibiotics and Bronchodilators med neb treatments * Full discharge education is given Overnight events are reviewed through medical chart and case discussion with patient's assigned RN while making rounds on patient on the day of service vital signs Vital Sign Date Time Temp Pulse Resp B/P (MAP) Pulse Ox O2 Delivery O2 Flow Rate FiO2 02/20/24 12:06 69 16 160/75 02/20/24 08:38 97.1 97 97.1 02/20/24 07:36 Room Air* 0 21 Total Intake and Output 02/19/24 02/19/24 02/20/24 15:00 23:00 07:00 Intake Total 1250 ml 475 ml Balance 1250 ml 475 ml medications Current Medications Medications Dose Ordered Sig/Kitty Route Start Time Stop Time Status Last Admin Dose Admin Nitroglycerin 0.4 mg Q5MINP PRN SL 02/15/24 01:15 Docusate Sodium 100 mg DAILY PRN PO 02/15/24 01:15 Empaglifozin 10 mg DAILY PO 02/15/24 10:00 02/20/24 09:49 10 MG EZETIMIBE 10 mg DAILY PO 02/15/24 10:00 02/20/24 09:49 10 MG Gabapentin 300 mg BID PO 02/15/24 10:00 02/20/24 09:49 300 MG Loratadine 10 mg DAILY GT 02/15/24 10:00 02/20/24 09:49 10 MG Metoprolol Succinate 50 mg DAILY PO 02/15/24 10:00 02/20/24 09:49 50 MG Pantoprazole Sodium 40 mg QAM PO 02/15/24 07:00 02/20/24 06:38 40 MG Patient Own Medication 1 tab DAILY PO 02/15/24 10:00 02/20/24 09:51 1 TAB Patient Own Medication 1 tab DAILY PO 02/15/24 10:00 02/20/24 09:52 1 TAB Ceftriaxone Sodium/Dextrose 50 ml @ 50 mls/hr DAILY IV 02/15/24 01:30 02/20/24 09:54 50 MLS/HR Insulin Human Lispro AC SC 02/15/24 07:00 02/19/24 17:19 2 UNITS Insulin Human Lispro HS SC 02/15/24 22:00 02/19/24 21:10 2 UNITS Valsartan 160 mg Q12H PO 02/17/24 08:00 02/20/24 09:54 160 MG Clopidogrel Bisulfate 75 mg DAILY@LUNCH PO 02/17/24 14:45 02/20/24 12:01 75 MG Hydromorphone HCl 1.2 mg Q4HP PRN IV 02/17/24 14:45 02/20/24 12:06 1.2 MG Clonidine HCl 0.1 mg UD PRN PO 02/17/24 14:45 02/19/24 14:20 0.1 MG Sodium Chloride 1,000 ml @ 10 mls/hr Q24H IV 02/19/24 22:00 02/19/24 22:06 10 MLS/HR Oxycodone/ Acetaminophen 1 tab Q6HR PRN PO 02/19/24 22:00 objective Physical exam General appearance: Well-developed, morbidly obese middle-aged AA female Appears no apparent distress Head: Normocephalic nontraumatic Eyes: EOMI, AMBAR, sclera nonicteric, conjunctive- pale ENT: ENT congestion-improved NSL bilateral symmetrical, oral mucosa wet Neck: Supple, carotid upstroke +2, trachea R off midline, JVD 1 cm No stridor, no goiter, no thyroid or lymph node enlargement No use of accessory muscles Chest: Emphysema, Bilateral symmetrical expansions of anterior wall, No Costochondral tenderness at 6, 7, 8 ICS Breasts: I exam - Bilateral symmetrical, Lungs: clear breath sounds all over except reduced at bases No rales or rhonchi at L lower base present CVS: PMI- 1 cm lateral to L MCL in fifth ICS , S1- S2 NSR no S3 GI: Abdomen soft, obese, bowel sounds normoactive No focal tenderness, no rebound tenderness No hepatosplenomegaly, no mass no hernia , : No CVA tenderness, no bladder mass palpable, genitalia-NE SKIN: Turgor -WNL, color pale, no rash, no icterus, Multiple scar of scabbed lesions No varicosity EXTs: No edema, color pink, no rash, no ecchymosis distal pulses +2 capillary refill <2 seconds, Scars of well healed scabbed lesions JOINTS; reduced range of motion BACK: No apparent lumbosacral spinal muscle tenderness, LYMPH NODES: No cervical, axillary or inguinal lymph nodes Neuro: Awake alert, oriented 4, coherent, all cognitives- intact No pronator drift, no focal motor deficit, Changes of DPN, DTR +2, gait steady PSYCH: Affect mildly depressed-denies suicidal ideation laboratory and microbiology Laboratory Tests 02/16/24 06:40 Test 02/16/24 06:40 Range/Units Serum Glucose 154 H 74-106 mg/dL Problem List 1. Altered mental status.............................. ......Improved from inadvertent effect of narcotic analgesics 2. Uncontrolled systolic hypertension................. Improving 3. Acute exacerbation of COPD......................... Improved 4. Acute chest pains....................................... Improving a. Ruled out [place] b. Lower respiratory tract infection c Pleurisy 5. Acute flare-up of fibromyalgia......................... Improving 6. Fairly well controlled NIDDM 6. Hypercholesterolemia 2' Diagnosis/Comorbidities 1. Morbid obesity in a young adult with BMI> 40 kg per m2 2. Chronic back pains 3. Osteoarthritis of bilateral hips and knees 4. Chronic narcotic dependence Assessment/Plan Medical decision making Overall patient's hemodynamic condition appears to be improving * Noted significant recovery from symptoms of chest congestion, shortness of breath and wheezing * Tapered patient off IV steroids for past 24 hours * Continued patient on IV antibiotics until discharge * We will switch to oral antibiotics * Encouraged patient to be up and out of bed Uncontrolled hypertension............................................ Improving * Continued patient on revised dose of valsartan, metoprolol * Continued patient on clonidine * Encouraged patient to go her daily walk, attends stress reduction classes acute flare-up of fibromyalgia........................................ Improving * Generalized pains due to fibromyalgia are improving with help of revised dose of Toradol * Altered mental status...................................................... Improved From inadvertent effect of narcotic analgesics * Noted back to normal baseline mental status on physical exam * The patient has been on revised doses of IV Dilaudid and Percocet Diabetic education Recommended to comply with ADA 1800 calorie diet and exercise Recommended intentional weight loss of 100 lbs Rec. Monitoring of hemoglobin A1c, renal functions every 3-4 months Rec, biannual physical exam, annual dental eye and peripheral artery ultrasound Annual 24 hour microalbuminuria Obesity education Current BMI> 40 kg per m2 Recommended intentional weight loss of 100 lb as through 1800 calorie ADA diet and exercise Informed patient about morbid obesity related health problems such as Obesity hypoventilation, hypoxia, cardiac arrhythmias, embolic events leading to CVA Lifelong disability, diabetes, arthritis requiring arthroplasties and high vulnerability for COVID infections. Patient agrees to follow my recommendations Chronic narcotic dependence Discussed in length about narcotic dependence and health problems including Acute hypoxic respiratory failure, and fatal cardiac arrhythmias from hypoxia Encourage patient for alternative pain management Measures as tolerated The patient agrees to follow my recommendations Treatment plans as of today Discharge patient home today Discontinue IV Dilaudid and Toradol Continue IV Rocephin, bronchodilators med neb treatments until discharge, Continued tapering patient off steroids Gentle IV hydration Continue NTG sublingual p.r.n. for angina Continue valsartan and metoprolol Continue Lipitor and Plavix Recommended discharge follow-up in next five days Update patient The patient and/or family is well informed by me about 1. Clinical impression, treatment plans, side effects of medications, course of the disease and fair prognosis 2. All patient's question/ concerns raised by patient are satisfactorily addressed by me 3. Education on long-term management of morbid obesity, hypertension and diabetes-given Prognosis Fair to good Dietary Evaluation Review Recommendations by RD: Dietary education by RD, Decrease Calorie Intake Comments: Recommended 1800 calorie ADA diet Recommended intentional weight loss through diet and exercise Expected Outcomes/Goals: Improve intentional weight loss and thereby reduce frequency of sleep apnoea Plan discussed with: Patient Total Time (mins): 60 SULY CARDOZO MD Feb 20, 2024 13:26
[2024-02-20] MEDS ORDERED: GABA-1250 PO (13:44)
[2024-02-20] MEDS ORDERED: VALS1TAB57 PO (13:44)
--- NOTE | 2024-02-23 14:43 | ECG ---
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
--- NOTE | 2024-02-23 15:08 | ECG ---
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
--- NOTE | 2024-02-23 15:08 | ECG ---
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
== END 2024-02-20 17:14 | disposition home or self-care (01) | DRG 177 ==
LOC: TELE-WESTW 00:39
PROVIDERS: ADMIT Specialist; ATTEND Specialist
DX: J15.69 Pneumonia due to other Gram-negative bacteria (principal); J96.01 Acute respiratory failure with hypoxia; J44.1 Chronic obstructive pulmonary disease with (acute) exacerbation; E66.2 Morbid (severe) obesity with alveolar hypoventilation; F11.20 Opioid dependence, uncomplicated; Z68.41 Body mass index [BMI] 40.0-44.9, adult; E11.9 Type 2 diabetes mellitus without complications; E78.00 Pure hypercholesterolemia, unspecified; I50.9 Heart failure, unspecified; Z20.822 Contact with and (suspected) exposure to COVID-19; E86.1 Hypovolemia; G89.29 Other chronic pain; I10 Essential (primary) hypertension; M16.0 Bilateral primary osteoarthritis of hip; M17.0 Bilateral primary osteoarthritis of knee; Z96.643 Presence of artificial hip joint, bilateral; I25.10 Atherosclerotic heart disease of native coronary artery without angina pectoris; M79.7 Fibromyalgia; K21.9 Gastro-esophageal reflux disease without esophagitis; I25.2 Old myocardial infarction; Z87.440 Personal history of urinary (tract) infections; Z88.8 Allergy status to other drugs, medicaments and biological substances; Z90.710 Acquired absence of both cervix and uterus; Z86.73 Personal history of transient ischemic attack (TIA), and cerebral infarction without residual deficits; Z79.899 Other long term (current) drug therapy; Z79.84 Long term (current) use of oral hypoglycemic drugs; Z79.82 Long term (current) use of aspirin
CPT/HCPCS: 36415; 71046; 80053; 80061; 81001; 82962; 83036; 83735; 84100; 84484; 85025; 87070; 87086; 87088; 87186; 87205; 93005; 94640; G0378; J1815; J1885

== ENCOUNTER 2024-04-27 20:55 | Inpatient (IN) | payer MEDICARE, MEDICAID ==
[~2024-04-27] VITALS: Ht 165.1 cm; Wt 105.2 kg
[~2024-04-27 20:55] MED LIST changes: -BACDST PO; -OXY5T PO; +VALS1TAB57 PO
[2024-04-27 21:04] VITALS: BP 155/80; PULSE 67; RESP 18; TEMP 97.8; O2SAT 97
[2024-04-27 22:15] VITALS: PULSE 63; RESP 20; O2SAT 96
[2024-04-27] MEDS ORDERED: ALBUTEROL SULF HFA 90MCG INH 200DOSE IN PRN (22:30)
[2024-04-27] MEDS ORDERED: MORPHINE SULFATE INJ 2 MG/ml SYRG IV PRN (22:30)
[2024-04-27] MEDS ORDERED: DOCUSATE SOD 100 MG CAP PO PRN (22:30)
[2024-04-27] MEDS: ALBUTEROL SULF 2.5 MG/0.5ML(0.5%) NEB SOLN ONE (22:49)
--- NOTE | 2024-04-27 22:51 | DVHHP2 ---
History of Present Illness 63 year-old middle-aged -British female with a known history of hypertension, NIDDM, hypercholesterolemia, obesity and CAD status post PTCA 2007 as well as known history of COPD, fibromyalgia is directly is directly admitted for further eval and management of recurrent Mid substernal pressure-like chest pain at times pleuritic in nature referring to Bob vitale recommended by mild shortness of breath for the past 3 days She tried sublingual nitroglycerin without significant relief. As of this morning, she woke up with chest pain. Upon receiving phone call from her spouse Mr. Cisco Fulton, I requested her to visit to local ER. Instead patient Presented to my office with symptoms of chest pain, chest congestion, shortness of breath and wheezing Onset/duration: x 3-4 days-worse this morning Severity: Anterior chest wall pains Location: Mid substernal Characteristic: Pressure-like, chest tightness, wheezing Referral: L shoulder Associated symptoms: Chest congestion shortness of breath wheezing Aggravated by: Deep inspiration, cough #1 Alleviated by: Bronchodilator Med-Neb treatment Risk factors: NIDDM, hypertension, CAD COPD, obesity Upon arrival to medical floor, she appeared to be symptomatic for chest pains and SOB. She appeared to be hypertensive, tachypneic and hypovolemic as well. Her 12-lead EKG was remarkable for ASMI, ST depression in lateral chowdhury Her troponins were reported to be in normal range ng/L. Given cardiac and pulmonary risk factors, I recommended her to receive hospitalization.. Following to my case discussion with warehouse administrative assistant, I admitted patient to medical floor with telemetry Current Medications Current Medications Medications (Trade) Dose Ordered Sig/Kitty Route PRN Reason Start Time Stop Time Status Last Admin Clopidogrel Bisulfate (Plavix) 75 mg DAILY PO 07/13/23 10:00 07/13/23 09:40 Empaglifozin (Jardiance) 10 mg DAILY PO 07/13/23 10:00 07/13/23 09:46 Loratadine (Claritin Tablet) 10 mg DAILY PO 07/13/23 10:00 07/13/23 09:40 Metoprolol Succinate (Toprol Xl) 50 mg DAILY PO 07/13/23 10:00 Pantoprazole Sodium (Protonix Tablet) 40 mg QAM PO 07/13/23 07:00 07/12/23 19:39 DC Insulin Human Lispro (HumaLOG) AC SC 07/13/23 07:00 07/13/23 17:05 Valsartan (Diovan) 160 mg DAILY PO 07/13/23 10:00 Pantoprazole Sodium (Protonix Tablet) 40 mg DAILY PO 07/13/23 10:00 07/13/23 09:40 Ceftriaxone Sodium 50 ml @ 100 mls/hr DAILY@09 IV 07/13/23 09:00 07/13/23 09:38 Sodium Chloride 1,000 ml @ 50 mls/hr Q20H IV 07/13/23 22:15 Hydromorphone HCl (Dilaudid Injection) 0.6 mg Q3HP PRN IV SEVERE PAIN (7-10 PAIN SCALE) 07/13/23 22:15 UNV Ketorolac Tromethamine (Toradol Injection) 30 mg Q8HR PRN IV MODERATE PAIN (4-6 PAIN SCALE) 07/13/23 22:15 07/17/23 18:29 UNV Vital Signs Vital Signs Date Time Temp Pulse Resp B/P (MAP) Pulse Ox O2 Delivery O2 Flow Rate FiO2 07/13/23 22:00 68 18 112/58 07/13/23 19:55 96 Room Air* 0 21 07/13/23 17:00 98.3 98.3 Physical Exam Physical Exam Vitals Vital Signs Date Time Temp Pulse Resp B/P (MAP) Pulse Ox O2 Delivery FiO2 Location 07/11/2418: 39 98.7 60 18 113/53 99% 2L Med Floor 07/11/2417: 49 98.4 72 20 153/68 (96) 99% 2L 07/12/23 17:47 98.5 72 20 97% 2L Med Floor 07/12/23 12:00 99.5 86 20 163/83 (109) 97% 2L office Wounds Multiple scabbed wounds over bilateral upper and lower extremities Results Labs Test 07/13/23 21:27 07/12/23 20:50 07/12/23 20:00 Range/Units POC Glucose 182 H 70-106 mg/dl Troponin I High Sensitivity 34 </=34 ng/L White Blood Count 5.5 4.4-10.8 10^3/uL Red Blood Count 4.43 4.0-5.20 10^6/uL Hemoglobin 10.7 L 12.2-16.2 g/dL Hematocrit 34.4 L 36.0-46.0 % Mean Corpuscular Volume 77.5 L 80.0-100.0 fL Mean Corpuscular Hemoglobin 24.2 L 28.0-32.0 pg Mean Corpuscular Hemoglobin Concent 31.2 L 32.0-36.0 g/dL Red Cell Distribution Width 18.3 H 11.8-14.3 % Platelet Count 268 140-450 10^3/uL Mean Platelet Volume 7.8 6.9-10.8 fL Neutrophils (%) (Auto) 39.2 37.0-80.0 % Lymphocytes (%) (Auto) 41.6 10.0-50.0 % Monocytes (%) (Auto) 11.9 0.0-12.0 % Eosinophils (%) (Auto) 5.9 0.0-7.0 % Basophils (%) (Auto) 1.4 0.0-2.0 % Neutrophils # (Auto) 2.2 1.6-8.6 10 ^3/uL Lymphocytes # (Auto) 2.3 0.4-5.4 10 ^3/uL Monocytes # (Auto) 0.7 0-1.3 10 ^3/uL Eosinophils # (Auto) 0.3 0-0.8 10 ^3/uL Basophils # (Auto) 0.1 0-0.2 10 ^3/uL Nucleated Red Blood Cells 0.1 % Sodium Level 139 136-145 mmol/L Potassium Level 3.6 3.5-5.1 mmol/L Chloride Level 110 H 98-107 mmol/L Carbon Dioxide Level 21 20-30 mmol/L Anion Gap 8 5-15 Blood Urea Nitrogen 9 9-23 mg/dL Creatinine 0.79 0.550-1.02 mg/dL Glomerular Filtration Rate Calc 83 >90 mL/min BUN/Creatinine Ratio 11.4 10.0-20.0 Serum Glucose 107 H 74-106 mg/dL Calcium Level 9.4 8.7-10.4 mg/dL Magnesium Level 1.9 1.6-2.6 mg/dL Total Bilirubin 0.2 0.2-1.0 mg/dL Aspartate Amino Transferase (AST) 12 L 13-40 U/L Alanine Aminotransferase (ALT) 13 7-40 U/L Alkaline Phosphatase 78 46-116 U/L Total Protein 6.4 5.7-8.2 g/dL Albumin 3.8 3.2-4.8 g/dL ORDERING PHYSICIAN: SULY CARDOZO MD PROCEDURE(s): CXR2 - CHEST TWO VIEWS ROUTINE REASON: pneumonia ORDER NUMBER(s): [id number], ACCESSION NUMBER(s): [id number] CHEST TWO VIEWS ROUTINE CLINICAL HISTORY: "pneumonia" COMPARISON: None TECHNIQUE: Frontal and lateral view of the chest was obtained FINDINGS: Lines and Tubes: None Lungs: No focal consolidation. Pleura: No effusion. No pneumothorax. Cardiomediastinal contours:Cardiomegaly Bones: No acute osseous abnormality. IMPRESSION: No acute cardiopulmonary disease. Past Medical History Past Medical History Past medical history records: Reviewed Cardiovascular history: Long history of hypertension complicated by hypertensive CAD Suffered acute [place] and noted to have occlusive disease of RCA requiring PTCA followed by stent placement in the year 2007 Patient suffers chronic stable angina requiring multiple hospitalization She received multiple stress EKG test and angiographic study including last one in November 2021 Respiratory history: COPD, obesity hypoventilation syndrome Gastrointestinal history: GE reflux Genitourinary history: Recurrent UTI over the past 12 months Endocrine history: Fairly well-controlled NIDDM-hemoglobin A1c stays under 6.5% to 7% Currently on metformin Exogenous obesity-BMI 41 kg/m, verbally counseled to lose weight of 100 pounds through diet and exercise Hypercholesterolemia currently on Lipitor-and Ecotrin Neurology history: History of CVA with no residual focal deficit Musculoskeletal history: Severe osteoarthritis affecting hip and knees-followed by Dr. Chandler Dermatitis affecting bilateral lower extremities Psychiatric history: Bipolar disorder-currently on Lamictal, Abilify Patient Family History: Cardiovascular disease G8 FATHER, Onset:25's - 30 Diabetes mellitus FHx: cancer G8 MOTHER, Onset: - Hypertension G8 MOTHER, Onset: - G8 FATHER, Onset: Past Surgical History Past Surgical History Total L hip arthroplasty Hysterectomy 1999 Left breast lump resection Patient Family History: Cardiovascular disease G8 FATHER, Onset:25's - 30 Diabetes mellitus FHx: cancer G8 MOTHER, Onset: - Hypertension G8 MOTHER, Onset: - G8 FATHER, Onset:30's - 40 Allergies: Coded Allergies: Benzalkonium Chloride (Verified Allergy, Unknown, 07/08/18) Lisinopril (Verified Allergy, Unknown, 07/08/18) Home Meds Active Scripts Valsartan (Valsartan) 80 Mg Tab, 160 MG PO DAILY@18 for 90 Days, TAB Hold if systolic BP < 110, angioedema Call PMD if angioedema of lips/tongue Prov:SULY CARDOZO MD 02/20/24 Gabapentin (Gabapentin) 300 Mg Cap, 1 CAP PO QHS PRN for MODERATE PAIN (4-6 PAIN SCALE), #90 CAP 5 Refills Prov:SULY CARDOZO MD 02/20/24 Loratadine (CLARITIN TABLET) 10 Mg Tb, 10 MG GT DAILY, #20 TAB Prov:SULY CARDOZO MD 01/20/22 Albuterol Sulfate (Ventolin) 2.5 Mg/0.5 Ml Nb, 2.5 MG NEB Q4HPRN PRN for 50 Days, #100 ML 1 Refill Prov:SULY CARDOZO MD 01/20/22 Reported Medications Valsartan-Hydrochlorothiazide (Diovan Hct) 160 /12.5 Tab, 1 TAB PO DAILY 05/15/23 Meloxicam (Meloxicam) 15 Mg Tab, 1 TAB PO DAILY 05/15/23 Aripiprazole (Aripiprazole) 10 Mg Tab, 1 TAB PO DAILY 05/15/23 Metformin Hydrochloride (Metformin Hcl Er) 750 Mg Tab, 1 TAB PO DAILY, #90 TAB 3 Refills 05/12/23 Rosuvastatin Calcium (Crestor) 20 Mg Tab, 1 TAB PO DAILY for LOWER BAD CHOLESTEROL, #30 TAB 5 Refills 04/03/22 Pantoprazole Sodium Sesquihydr (Pantoprazole Sodium) 40 Mg Tab, 40 MG PO QAM for GERD, TAB PRIOR TO BREAKFAST PER PT SHOULD STILL BE ON THIS MEDICATION EVEN THOUGH NO P/UP HISTORY IN EXTERNAL MED 11/21/21 Ezetimibe (Zetia) 10 Mg Tab, 1 TAB PO DAILY for High Cholesterol, #30 TAB 5 Refills 11/21/21 Empagliflozin (Jardiance) 10 Mg Tab, 10 MG PO DAILY for DIABETES, TAB 11/21/21 Escitalopram Oxalate (ESCITALOPRAM OXALATE) 20 Mg Tab, 1 TAB PO DAILY for DEPRESSION, #30 TAB 5 Refills 11/21/21 Metoprolol Succinate (Metoprolol Succinate Er) 50 Mg Tab, 50 MG PO DAILY for BLOOD PRESSURE NEW DISCHARGE MED IS METOPROLOL SUCC ER 25 MG BID, BUT PATIENT HAS NOT STARTED TAKING YET AND WOULD LIKE TO BE KEPT ON 50 MG DAILY 07/12/20 Mupirocin Calcium (Topical) (MUPIROCIN) 2 % Cre, 1 APPLIC TOP BID for Skin infection PER PATIENT'S HOME MED LIST: APPLY TOPICALLY TO OPEN WOUNDS BID PT USES 2 GRAMS BID 01/18/20 Docusate Sodium (DOCQLACE) 100 Mg Cap, 100 MG PO DAILY PRN for FOR CONSTIPATION, CAP 06/04/18 Albuterol Sulfate (VENTOLIN MDI) 90 Mcg Ih, 2 PUFF IN Q6HPRN PRN for SHORTNESS OF BREATH EXTERNAL MED HX SAYS Q4HR. PATIENT USES Q6HR PRN 06/04/18 Clopidogrel Bisulfate (CLOPIDOGREL) 75 Mg Tab, 75 MG PO DAILY 06/04/18 Current Medications Current Medications Medications (Trade) Dose Ordered Sig/Kitty Route PRN Reason Start Time Stop Time Status Last Admin Nitroglycerin (Ntrostat Sublingual) 0.4 mg Q5MINP PRN SL FOR CHEST PAIN 04/27/24 22:30 UNV Morphine Sulfate 2 mg Q30M PRN IV FOR CHEST PAIN 04/27/24 22:30 UNV Albuterol (Ventolin Hfa) 90 mcg Q6HPRN PRN IN SHORTNESS OF BREATH 04/27/24 22:30 UNV Albuterol (Ventolin Medneb) 2.5 mg Q4HPRN PRN NEB WSOB 04/27/24 22:30 UNV Clopidogrel Bisulfate (Plavix) 75 mg DAILY PO 04/28/24 10:00 UNV Docusate Sodium (Colace Capsule) 100 mg DAILY PRN PO FOR CONSTIPATION 04/27/24 22:30 UNV Empaglifozin (Jardiance) 10 mg DAILY PO 04/28/24 10:00 UNV EZETIMIBE (Zetia) 10 mg DAILY PO 04/28/24 10:00 UNV Gabapentin (Neurontin Capsule) 300 mg BID PO 04/28/24 10:00 UNV Loratadine (Claritin Tablet) 10 mg DAILY GT 04/28/24 10:00 UNV Metoprolol Succinate (Toprol Xl) 50 mg DAILY PO 04/28/24 10:00 UNV Pantoprazole Sodium (Protonix Tablet) 40 mg QAM PO 04/28/24 07:00 UNV Valsartan (Diovan) 160 mg DAILY PO 04/28/24 10:00 UNV Patient Own Medication 1 tab DAILY PO 04/28/24 10:00 UNV Patient Own Medication 1 tab DAILY PO 04/28/24 10:00 UNV Patient Own Medication 1 tab DAILY PO 04/28/24 10:00 UNV Patient Own Medication 1 tab DAILY PO 04/28/24 10:00 UNV Patient Own Medication 1 tab DAILY PO 04/28/24 10:00 UNV Ceftriaxone Sodium/Dextrose 50 ml @ 50 mls/hr DAILY IV 04/28/24 10:00 UNV Review of Systems Review of Systems Constitutional: Reports generalized weakness, low-grade fever, chills, denies weight loss HEENT: Denies headache, nasal/maxillary sinus congestion, rhinorrhea, l acrimation Denies conjunctival pains, denies hearing or visual deficits NECK: No symptoms of neck pains or stiffness CHEST: Reports chest pains, cough congestion, shortness of breath costochondral tenderness, RS: Reports cough, chest congestion, wheezing, shortness of breath, pleurisy CVS: Reports angina, shortness of breath, denies palpitation, : Reports heartburn, GE reflux, abdominal pains, N/ V/D, melena : Denies symptoms of frequency, urgency, dysuria, hematuria BACK: Reports chronic back pains, radicular pains MS: Reports generalized aches and pains from fibromyalgia SKIN: Multiple scabbed wounds of upper and lower extremities EXTs: Multiple scabbed wounds no edema, no rash, no open wounds 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 appearance: Well-developed obese built middle-aged -[place] female appears to be hypovolemic, short of breath, reports chest discomfort HEENT Head normocephalic nontraumatic, Eyes-eyeball shrunken +2 Eyes EOMI, PERRLA, conjunctiva -pale, sclera nonicteric ENT-mild nasal congestion, no hyperemia of TM, Tongue/mucous membranes dry NECK: Supple, trachea R off midline , carotid upstroke +2, JVD 1 cm, No thyroid or lymph node enlargement, no use of accessory muscles L-[id number] muscle tenderness present, ROM at C-spine full CHEST: Emphysematous, costochondral tenderness Hypoventilation at bilateral bases RS: Clear breath sounds at anterior lung [place] Reduced breath sounds at bilateral bases Scattered late inspiratory wheezes posterior bases CVS: PMI-2 cm lateral to L MCL line in the sixth ICS, S1-S2/A1-A2 normal sinus accentuated no gallop no murmur GI: Abdomen soft, obese +3, bowel sounds normoactive No focal tenderness, no mass or hernia, no hepatosplenomegaly Rectal: Stool OB negative no mass normal sphincter tone Genitourinary: Normal genitalia, no discharge, no focal lesions Back: CVA tenderness minimal, bilateral lumbosacral spinal muscle tenderness present Bilateral suprascapular point tenderness present Straight leg raising test negative EXTs: Wounds Bilateral upper extremities-multiple pigmented spots of varying geographic shapes due to dermatitis Pulses:Distal pulses +2, no rash, no edema, capillary refill instant, Feels peripherally warm Joints: Reduced ROM at bilateral hips and knee Neuro: Patient is awake alert oriented 3, affect depressed cognitive intact DTR +2, No focal motor deficit, changes of diabetic peripheral neuropathy, gait steady Primary Diagnosis Primary Diagnosis Acute chest pain-rule out acute AZ Vs pulmonary embolism Admitting Diagnosis: 1. Acute chest pain-rule out acute AZ Vs pulmonary embolism 2. Uncontrolled hypertension 3. Acute asthmatic bronchitis with COPD exacerbation 4. Fairly well-controlled NIDDM 5. Hypercholesterolemia 2' Diagnosis/Comorbidities 1. Morbid obesity Plan discussed with: Patient Plan Comprehensive clinical assessment and treatment plans (1) Acute chest pains- a. Unstable angina b. Rule out acute non ELMER AZ vs pulmonary embolism vs myocardial strain from uncontrolled hypertension c. Extensive cardiac history and risk factors-HTN, NIDDM, hypercholester olemia, obesity Status: Acute Present at the time of admission: Yes Problem specific AP The patient presents with recurrent mid substernal pressure-like Chest pains referring to L shoulder attended with shortness of breath * Part of her current symptoms could be triggered from acute asthmatic bronchitis With COPD exacerbation wheezing and chest tightness * Noted costochondral tenderness and late inspiratory wheezes at posterior lung calh[place] * She failed to respond to outpatient measures * Her initial EKG and serum troponins are unremarkable for old ASMI, * She has significant cardiac risk factors-hypertension, NIDDM, hypercholesterolemia CAD * Differential diagnosis could be -pulmonary embolism, acute flareup of fibromyalgia * Recommended patient to receive hospitalization * Recommended serial EKGs and enzymes, 2D echo * Her warper creeler is Dr. Bull. * Recommend patient SL NTG, morphine, Plavix, Lovenox * Recommend to continue metoprolol, ARBS 2) Acute asthmatic bronchitis with acute exacerbation of COPD Status: Acute Present at the time of admission: Yes Problem specific AP Patient reports to have chest congestion and shortness of breath * Noted scattered late inspiratory wheezes at bilateral bases * Known history of COPD from passive exposure to smoking * Recommended sputum and blood cultures, IV antibiotics and bronchodilator Med-Neb treatments, IV steroids as tolerated (3) Acute flare-up of fibromyalgia Triggered by lower respiratory infection Status: Acute on chronic Assessment & Plan: Known history of fibromyalgia * Acute flare up triggered by acute asthmatic bronchitis * the patient reports to have generalized aches and pains including upper and Lower back * Recommended IV nonsteroidals, pain management (4) Hypovolemia Status: Acute Assessment & Plan: The patient is noted to have hypovolemia on physical exam * Recommended IV hypotonic saline with potassium and magnesium supplement riders (5) Hypercholesterolemia Status: Chronic Assessment & Plan: Known history of hypercholesterolemia Recommended patient to receive low-cholesterol diet and Lipitor Ecotrin. Side effects of medications are discussed with the patient (6) Uncontrolled hypertension Status: Chronic Assessment & Plan: Known history of hypertension for long time Complicated by severe concentric LVH on 2D echo-09/11/2020 Currently on beta-blockers Patient does not tolerate ACEI, recommend ARBs (7) Well controlled diabetes mellitus Status: Chronic Assessment & Plan: Her diabetes remains under fair control. Her hemoglobin A1c runs between 6.5 to 7% * Discussed with patient about all pertinent etiologic causes of uncontrolled NIDDM a. Obesity and insulin resistance b. Noncompliance with diet and medications c stress from acute AZ, UTI Recommended patient a, 1800-calorie ADA diet b. Combination of basal and short acting insulin therapy c. Intentional weight loss of 100 lbs is through diet and exercise d. Monitoring hemoglobin A1c,, CMP every 3 months lipid panel every 6 months 24-hour urine check for microalbuminuria on annual basis e. Recommended annual physical exam by dentist, billet grinder and eye doctor f. Report to podiatry for any sign of inflammation or injury to foot (8) Morbid obesity in adult with current BMI >35-39 Kg/m Status: Chronic Assessment & Plan Her current BMI is high at 38 kg/m reflecting Her current body weight exceeds by 7588 LBS to ideal body weight Informed patient about complications of obesity which includes but not limited to a. Hypoxia, cardiac arrhythmias, pulmonary embolism, embolic CVA, sudden cardiac The patient is recommended weight loss of 80 pounds through Low-carb low calorie 1800-calorie diet and aerobic exercises as tolerated Recommended patient to follow a. daily weight, b. ADA 1800-calorie diet-40% calories from breakfast 30% calories from lunch and dinner each, avoid carbonated soda c. Recommended aerobic exercises like walking 1-5 miles per day, riding on a stationary bike for 1-2 hours (9) Exogenous dermatitis Status: Chronic Assessment & Plan: Status: Preexistent The patient will be treated with help of local application of betamethasone over dermatitis area, and Bactroban application or open wounds Plan Treatment plans as of today Admit to telemetry floor Obtain serial EKGs and enzymes Place patient on NTG, morphine Place patient on metoprolol XL, and Lipitor continue Ecotrin 81 mg by mouth daily Continue metoprolol 50 mg PO twice daily Recommend antiplatelet agent like Plavix and Lovenox Reconcile home medications Obtain sputum and blood cultures PRN temp >101.5 Place patient on broad-spectrum IV antibiotics and bronchodilator Med-Neb treatment Careful IV hydration VTE the precautions Local application of Bactroban over bilateral upper extremity patient and her have been well informed by me about 1. Admission diagnosis, treatment plans, side effects of medications, course of the disease and fair to guarded prognosis 2. Modification of risk factors including intentional weight loss for obesity, tight control of diabetes and hypertension 3. All patient's and concerns raised by patient or family are satisfactorily addressed by me SULY CARDOZO MD Apr 27, 2024 22:51
[2024-04-27 22:55] VITALS: BP 155/80; PULSE 67; TEMP 97.8; O2SAT 97
[2024-04-27 23:26] LABS: Basophils # (auto) 0.1 10 ^3/uL (0-0.2); Hemoglobin 12.5 g/dL (12.2-16.2); Lymphocytes # (auto) 3.2 10 ^3/uL (0.4-5.4); Monocytes # (auto) 0.9 10 ^3/uL (0-1.3); Neutrophils # (auto) 3.5 10 ^3/uL (1.6-8.6)
[2024-04-27 23:28] LABS: Basophils % (auto) 1.1 % (0.0-2.0); Eosinophils # (auto) 0.5 10 ^3/uL (0-0.8); Eosinophils % (auto) 6.4 % (0.0-7.0); Hematocrit 39.1 % (36.0-46.0); Lymphocytes % (auto) 38.8 % (10.0-50.0); Mean Corpuscular Hemoglobin 25.6 pg (28.0-32.0); Mean Corpuscular Hgb Conc. 32.1 g/dL (32.0-36.0); Mean Corpuscular Volume 79.6 fL (80.0-100.0); Monocytes % (auto) 11.3 % (0.0-12.0); Neutrophils % (auto) 42.4 % (37.0-80.0); Nucleated Red Blood Cells % 0.1 %; Platelet Count (auto) 269 10^3/uL (140-450); Red Blood Cells 4.91 10^6/uL (4.0-5.20); Red Cell Distribution Width 15.2 % (11.8-14.3); White Blood Cell 8.2 10^3/uL (4.4-10.8)
[2024-04-27 23:40] LABS: INR 0.99 (0.9-1.15); Partial Thromboplastin Time 29.9 SEC (24.5-34.5); Prothrombin Time 10.5 sec (9.3-11.8)
[2024-04-27 23:42] LABS: Alanine Aminotransferase 22 U/L (7-40); Albumin 4.1 g/dL (3.2-4.8); Alkaline Phosphatase 103 U/L (46-116); Anion Gap 8 (5-15); Aspartate Aminotransferase 14 U/L (13-40); BUN/Creatinine Ratio 18.6 (10.0-20.0); Bilirubin, Total 0.4 mg/dL (0.2-1.0); Blood Urea Nitrogen 13 mg/dL (9-23); Calcium 9.8 mg/dL (8.7-10.4); Carbon Dioxide 25 mmol/L (20-31); Magnesium 1.8 mg/dL (1.6-2.6); Phosphorus 2.9 mg/dL (2.4-5.1); Sodium 140 mmol/L (136-145)
[2024-04-27 23:45] LABS: Chloride 107 mmol/L (98-107); Glucose 108 mg/dL (74-106); Potassium 3.4 mmol/L (3.5-5.1)
[2024-04-28] VITALS (15 sets, daily range): BP systolic 100–149; BP diastolic 48–74; PULSE 59–86; RESP 16–20; TEMP 97.5–98.6; O2SAT 93–100
[2024-04-28] MEDS: HYDROmorphone HCL 2 MG/ML VL/or syr IV PRN (01:18)
[2024-04-28] MEDS: ALBUTEROL SULF 2.5 MG/0.5ML(0.5%) NEB SOLN NEB PRN (01:24)
[2024-04-28] MEDS: SOD CHL 0.45% 1,000 ML IV SCH (04:07)
[2024-04-28] MEDS: PANTOPRAZOLE 40 MG TAB PO SCH (05:17)
[2024-04-28] MEDS: KETOROLAC TROMETH 30 MG/ML 1ML VIAL IV PRN (05:17)
--- NOTE | 2024-04-28 06:54 | DVH ---
EXAM: XR Cervical Spine, 6 or More Views CLINICAL INDICATION: r/o pneumonia TECHNIQUE: Frontal, lateral, oblique and flexion/extension views of the cervical spine. COMPARISON: XY CHEST PORTABLE on DOS: 09/13/23, XY CHEST PORTABLE on DOS: 05/12/23, XY CHEST XRAY 1 V IEW on DOS: 03/20/23, XY CHEST PORTABLE on DOS: 01/29/23, XY CHEST PORTABLE on DOS: 09/05/22 FINDINGS: VERTEBRAE: Unremarkable. No acute fracture. Normal alignment. No instability. DISC SPACES: No acute findings. No significant narrowing. SOFT TISSUES: Unremarkable. HEART: Cardiomegaly with mild congestion. OTHER FINDINGS: . . . .. IMPRESSION: Cardiomegaly with mild congestion.
[2024-04-28 07:40] LABS: Basophils # (auto) 0.1 10 ^3/uL (0-0.2); Eosinophils # (auto) 0.5 10 ^3/uL (0-0.8); Hemoglobin 11.9 g/dL (12.2-16.2); Mean Corpuscular Hemoglobin 25.7 pg (28.0-32.0); Monocytes # (auto) 0.9 10 ^3/uL (0-1.3); Red Cell Distribution Width 15.5 % (11.8-14.3)
[2024-04-28 07:43] LABS: Eosinophils % (auto) 6.4 % (0.0-7.0); Hematocrit 37.2 % (36.0-46.0); Lymphocytes # (auto) 2.4 10 ^3/uL (0.4-5.4); Mean Corpuscular Hgb Conc. 32.1 g/dL (32.0-36.0); Mean Corpuscular Volume 79.9 fL (80.0-100.0); Monocytes % (auto) 12.6 % (0.0-12.0); Neutrophils # (auto) 3.6 10 ^3/uL (1.6-8.6); Nucleated Red Blood Cells % 0.1 %; Platelet Count (auto) 267 10^3/uL (140-450); Red Blood Cells 4.65 10^6/uL (4.0-5.20); White Blood Cell 7.4 10^3/uL (4.4-10.8)
[2024-04-28] MEDS: ATORVASTATIN 20 MG TAB PO SCH (09:10)
[2024-04-28] MEDS: cefTRIAXone 2GM/50ML D5W 50 ML IV SCH (09:10)
[2024-04-28] MEDS: GABAPENTIN 300 MG CAP PO SCH (09:10)
[2024-04-28] MEDS: metFORMIN HYDROCHLORIDE 500 MG TAB PO SCH (09:11)
[2024-04-28] MEDS: CITALOPRAM HYDROBR 20 MG TAB PO SCH (09:11)
[2024-04-28] MEDS: LORATADINE 10 MG TAB PO SCH (09:11)
[2024-04-28] MEDS: EMPAGLIFLOZIN 10 MG TAB PO SCH (09:12)
[2024-04-28] MEDS: VALSARTAN 80 MG TAB PO SCH (09:12)
[2024-04-28] MEDS: hydroCHLOROthiazide 25 MG TAB PO SCH (09:13)
[2024-04-28] MEDS: CLOPIDOGREL BISULFATE 75 MG TAB PO SCH (09:13)
[2024-04-28] MEDS: EZETIMIBE 10 MG TAB PO SCH (09:13)
[2024-04-28] MEDS: METOPROLOL SUCCINATE XL 50 MG TAB PO SCH (09:14)
[2024-04-28 09:25] LABS: Alanine Aminotransferase 20 U/L (7-40); Albumin 3.8 g/dL (3.2-4.8); Alkaline Phosphatase 93 U/L (46-116); Anion Gap 11 (5-15); Aspartate Aminotransferase 15 U/L (13-40); BUN/Creatinine Ratio 18.8 (10.0-20.0); Blood Urea Nitrogen 12 mg/dL (9-23); Calcium 9.3 mg/dL (8.7-10.4); Carbon Dioxide 22 mmol/L (20-31); Chloride 106 mmol/L (98-107); Potassium 3.5 mmol/L (3.5-5.1); Sodium 139 mmol/L (136-145)
[2024-04-28 09:26] LABS: Bilirubin, Total 0.4 mg/dL (0.2-1.0); Total Protein 6.5 g/dL (5.7-8.2)
[2024-04-28 09:35] LABS: Glucose 142 mg/dL (74-106)
[2024-04-28] MEDS ORDERED: PATIENTS OWN MEDICATION (Aripiprazole 1 TAB) PO SCH ×2 (10:00)
[2024-04-28] MEDS ORDERED: ARIPIPRAZOLE PO SCH (10:00)
[2024-04-28] MEDS ORDERED: hydroCHLOROthiazide 25 MG TAB PO SCH (10:00)
--- NOTE | 2024-04-28 10:44 | ECG ---
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
[2024-04-28 10:47] LABS: Triglycerides 126 mg/dL (< 150)
[2024-04-28 10:48] LABS: Cholesterol 153 mg/dL (< 200); LDL Cholesterol 92 mg/dL (< 100)
[2024-04-28 10:49] LABS: HDL Cholesterol 47 mg/dL (40-59)
[2024-04-28 11:22] LABS: Urine Bacteria None Seen /hpf (None Seen)
[2024-04-28 11:54] LABS: Urine Blood Negative /uL (Negative); Urine Clarity Clear (Clear); Urine Color Light-Yellow (Yellow); Urine Mucus FEW (None Seen); Urine Protein, UAD Negative (Negative); Urine Specific Gravity 1.017 (1.001-1.035); Urine Squamous Epithelial Cell FEW /hpf (<5); Urine Urobilinogen Normal (Negative); Urine WBC 13 /HPF (0-5); Urine pH 5.5 (5.0-9.0)
--- NOTE | 2024-04-28 23:30 | DVHPN2 ---
Progress Note - Dictate Date Seen: Apr 28, 2024 Subjective Currently being treated for symptoms of acute exacerbation of COPD, Musculoskeletal chest pains, acute flare-up of fibromyalgia. * Continued on IV antibiotics, parenteral analgesics * Continued on bronchodilators med neb treatments * Requested V/Q scan, 2D echo exam Overnight events are reviewed through medical chart and case discussion with patient's assigned RN while making rounds on patient on the day of service vital signs Vital Sign Date Time Temp Pulse Resp B/P (MAP) Pulse Ox O2 Delivery O2 Flow Rate FiO2 04/28/24 21:00 98.0 71 18 125/59 (81) 100 98.0 04/28/24 19:18 Room Air 0.0 04/28/24 19:18 21 Total Intake and Output 04/27/24 04/27/24 04/28/24 15:00 23:00 07:00 Intake Total 450 ml Balance 450 ml medications Current Medications Medications Dose Ordered Sig/Kitty Route Start Time Stop Time Status Last Admin Dose Admin Nitroglycerin 0.4 mg Q5MINP PRN SL 04/27/24 22:30 Albuterol 2.5 mg Q4HPRN PRN NEB 04/27/24 22:30 04/28/24 19:18 2.5 MG Clopidogrel Bisulfate 75 mg DAILY PO 04/28/24 10:00 04/28/24 09:13 75 MG Docusate Sodium 100 mg DAILY PRN PO 04/27/24 22:30 Empaglifozin 10 mg DAILY PO 04/28/24 10:00 04/28/24 09:12 10 MG EZETIMIBE 10 mg DAILY PO 04/28/24 10:00 04/28/24 09:13 10 MG Gabapentin 300 mg BID PO 04/28/24 10:00 04/28/24 21:10 300 MG Loratadine 10 mg DAILY PO 04/28/24 10:00 04/28/24 09:11 10 MG Metoprolol Succinate 50 mg DAILY PO 04/28/24 10:00 04/28/24 09:14 50 MG Pantoprazole Sodium 40 mg QAM PO 04/28/24 07:00 04/28/24 05:17 40 MG Valsartan 160 mg DAILY PO 04/28/24 10:00 04/28/24 09:12 160 MG Citalopram Hydrobromide 40 mg DAILY PO 04/28/24 10:00 04/28/24 09:11 40 MG Metformin HCl 750 mg DAILY PO 04/28/24 10:00 04/28/24 09:11 750 MG Atorvastatin Calcium 40 mg DAILY PO 04/28/24 10:00 04/28/24 09:10 40 MG Ceftriaxone Sodium/Dextrose 50 ml @ 50 mls/hr DAILY IV 04/28/24 10:00 04/28/24 09:10 50 MLS/HR Hydrochlorothiazide 12.5 mg DAILY PO 04/28/24 10:00 04/28/24 09:13 12.5 MG Oxycodone/ Acetaminophen 2 tab Q6HP PRN PO 04/27/24 23:00 Hydromorphone HCl 0.8 mg Q4HP PRN IV 04/27/24 23:00 04/28/24 16:12 0.8 MG Ketorolac Tromethamine 15 mg Q6HPRN PRN IV 04/27/24 23:15 05/02/24 23:14 04/28/24 05:17 15 MG Patient Own Medication 1 tab DAILY PO 04/28/24 10:00 Hold Sodium Chloride 1,000 ml @ 20 mls/hr Q24H IV 04/28/24 22:30 objective Physical Exam Gen. appearance: Well-developed obese built middle-aged -[place] female appears to be hypovolemic, short of breath, reports chest discomfort HEENT Head normocephalic nontraumatic, Eyes-eyeball shrunken +2 Eyes EOMI, PERRLA, conjunctiva -pale, sclera nonicteric ENT-mild nasal congestion, no hyperemia of TM, Tongue/mucous membranes dry NECK: Supple, trachea R off midline , carotid upstroke +2, JVD 1 cm, No thyroid or lymph node enlargement, no use of accessory muscles L-owysl-fuciqiwlct muscle tenderness present, ROM at C-spine full CHEST: Emphysematous, costochondral tenderness Hypoventilation at bilateral bases RS: Clear breath sounds at anterior lung calhoun Reduced breath sounds at bilateral bases Scattered late inspiratory wheezes posterior bases CVS: PMI-2 cm lateral to L MCL line in the sixth ICS, S1-S2/A1-A2 normal sinus accentuated no gallop no murmur GI: Abdomen soft, obese +3, bowel sounds normoactive No focal tenderness, no mass or hernia, no hepatosplenomegaly Rectal: Stool OB negative no mass normal sphincter tone Genitourinary: Normal genitalia, no discharge, no focal lesions Back: CVA tenderness minimal, bilateral lumbosacral spinal muscle tenderness present Bilateral suprascapular point tenderness present Straight leg raising test negative EXTs: Wounds Bilateral upper extremities-multiple pigmented spots of varying geographic shapes due to dermatitis Pulses:Distal pulses +2, no rash, no edema, capillary refill instant, Feels peripherally warm Joints: Reduced ROM at bilateral hips and knee Neuro: Patient is awake alert oriented 3, affect depressed cognitive intact DTR +2, No focal motor deficit, changes of diabetic peripheral neuropathy, gait steady laboratory and microbiology Laboratory Tests 04/28/24 06:48 Test 04/28/24 06:48 Range/Units Serum Glucose 142 H 74-106 mg/dL Problem List Admitting Diagnosis: 1. Acute exacerbation of COPD Triggered by acute asthmatic bronchitis 2. Acute chest pains Acute [place] ruled out 3. Fairly well-controlled NIDDM and hypertension 4. Hypercholesterolemia 2' Diagnosis/Comorbidities 1. Morbid obesity Comprehensive clinical assessment and treatment plans Acute asthmatic bronchitis with acute exacerbation of COPD Status: Acute Present at the time of admission: Yes Problem specific AP Patient reports to have chest congestion and shortness of breath * Noted scattered late inspiratory wheezes at bilateral bases * Known history of COPD from passive exposure to smoking * Recommended sputum and blood cultures, IV antibiotics and bronchodilator Med-Neb treatments, IV steroids as tolerated (1) Acute chest pains- a. Unstable angina b. Rule out acute non [place] vs pulmonary embolism vs myocardial strain from uncontrolled hypertension c. Extensive cardiac history and risk factors-HTN, NIDDM, hypercholesterolemia, obesity Status: Acute Present at the time of admission: Yes Problem specific AP The patient presents with recurrent mid substernal pressure-like Chest pains referring to L shoulder attended with shortness of breath * Part of her current symptoms could be triggered from acute asthmatic bronchitis With COPD exacerbation wheezing and chest tightness * Noted costochondral tenderness and late inspiratory wheezes at posterior lung calhoun * She failed to respond to outpatient measures * Her initial EKG and serum troponins are unremarkable for old ASMI, * She has significant cardiac risk factors-hypertension, NIDDM, hypercholesterolemia CAD * Differential diagnosis could be -pulmonary embolism, acute flareup of fibromyalgia * Recommended patient to receive hospitalization * Recommended serial EKGs and enzymes, 2D echo * Her tub rider is Dr. Bull. * Recommend patient SL NTG, morphine, Plavix, Lovenox * Recommend to continue metoprolol, ARBS 2) (3) Acute flare-up of fibromyalgia Triggered by lower respiratory infection Status: Acute on chronic Assessment & Plan: Known history of fibromyalgia * Acute flare up triggered by acute asthmatic bronchitis * the patient reports to have generalized aches and pains including upper and Lower back * Recommended IV nonsteroidals, pain management (4) Hypovolemia Status: Acute Assessment & Plan: The patient is noted to have hypovolemia on physical exam * Recommended IV hypotonic saline with potassium and magnesium supplement riders (5) Hypercholesterolemia Status: Chronic Assessment & Plan: Known history of hypercholesterolemia Recommended patient to receive low-cholesterol diet and Lipitor Ecotrin. Side effects of medications are discussed with the patient (6) Uncontrolled hypertension Status: Chronic Assessment & Plan: Known history of hypertension for long time Complicated by severe concentric LVH on 2D echo-09/11/2020 Currently on beta-blockers Patient does not tolerate ACEI, recommend ARBs (7) Well controlled diabetes mellitus Status: Chronic Assessment & Plan: Her diabetes remains under fair control. Her hemoglobin A1c runs between 6.5 to 7% * Discussed with patient about all pertinent etiologic causes of uncontrolled NIDDM a. Obesity and insulin resistance b. Noncompliance with diet and medications c stress from acute [place], UTI Recommended patient a, 1800-calorie ADA diet b. Combination of basal and short acting insulin therapy c. Intentional weight loss of 100 lbs is through diet and exercise d. Monitoring hemoglobin A1c,, CMP every 3 months lipid panel every 6 months 24-hour urine check for microalbuminuria on annual basis e. Recommended annual physical exam by dentist, electric golf cart repairers and eye doctor f. Report to podiatry for any sign of inflammation or injury to foot (8) Morbid obesity in adult with current BMI >35-39 Kg/m Status: Chronic Assessment & Plan Her current BMI is high at 38 kg/m reflecting Her current body weight exceeds by 7588 LBS to ideal body weight Informed patient about complications of obesity which includes but not limited to a. Hypoxia, cardiac arrhythmias, pulmonary embolism, embolic CVA, sudden cardiac The patient is recommended weight loss of 80 pounds through Low-carb low calorie 1800-calorie diet and aerobic exercises as tolerated Recommended patient to follow a. daily weight, b. ADA 1800-calorie diet-40% calories from breakfast 30% calories from lunch and dinner each, avoid carbonated soda c. Recommended aerobic exercises like walking 1-5 miles per day, riding on a stationary bike for 1-2 hours (9) Exogenous dermatitis Status: Chronic Assessment & Plan: Status: Preexistent The patient will be treated with help of local application of betamethasone over dermatitis area, and Bactroban application or open wounds Plan Treatment plans as of today Admit to telemetry floor Obtain serial EKGs and enzymes Place patient on NTG, morphine Place patient on metoprolol XL, and Lipitor continue Ecotrin 81 mg by mouth daily Continue metoprolol 50 mg PO twice daily Recommend antiplatelet agent like Plavix and Lovenox Reconcile home medications Obtain sputum and blood cultures PRN temp >101.5 Place patient on broad-spectrum IV antibiotics and bronchodilator Med-Neb treatment Careful IV hydration VTE the precautions Local application of Bactroban over bilateral upper extremity patient and her have been well informed by me about 1. Admission diagnosis, treatment plans, side effects of medications, course of the disease and fair to guarded prognosis 2. Modification of risk factors including intentional weight loss for obesity, tight control of diabetes and hypertension 3. All patient's and concerns raised by patient or family are satisfactorily addressed by me SULY CARDOZO MD Apr 28, 2024 23:30
[2024-04-29] VITALS (14 sets, daily range): BP systolic 121–141; BP diastolic 51–72; PULSE 60–84; RESP 16–20; TEMP 97.7–98.6; O2SAT 94–100
[2024-04-29] MEDS: SOD CHL 0.45% 1,000 ML IV SCH (02:50)
[2024-04-29] MEDS: OXYCODONE W/ ACETAMINOPHEN 5/325MG TABLET PO PRN (03:46)
--- NOTE | 2024-04-29 23:17 | DVHPN2 ---
Progress Note - Dictate Date Seen: Apr 29, 2024 Subjective Currently being treated for symptoms of acute exacerbation of COPD, CHEST CONGESTION, Musculoskeletal chest pains, acute flare-up of fibromyalgia. * Continued on IV antibiotics, parenteral analgesics * Continued on bronchodilators med neb treatments * Requested V/Q scan, 2D echo exam Overnight events are reviewed through medical chart and case discussion with patient's assigned RN while making rounds on patient on the day of service vital signs Vital Sign Date Time Temp Pulse Resp B/P (MAP) Pulse Ox O2 Delivery O2 Flow Rate FiO2 04/29/24 21:06 77 20 125/63 04/29/24 21:00 98.5 95 98.5 04/29/24 09:04 Room Air* 0 21 Total Intake and Output 04/28/24 04/28/24 04/29/24 15:00 23:00 07:00 Intake Total 250 ml 1490 ml 1255 ml Balance 250 ml 1490 ml 1255 ml medications Current Medications Medications Dose Ordered Sig/Kitty Route Start Time Stop Time Status Last Admin Dose Admin Nitroglycerin 0.4 mg Q5MINP PRN SL 04/27/24 22:30 Albuterol 2.5 mg Q4HPRN PRN NEB 04/27/24 22:30 04/29/24 19:06 2.5 MG Clopidogrel Bisulfate 75 mg DAILY PO 04/28/24 10:00 04/29/24 09:51 75 MG Docusate Sodium 100 mg DAILY PRN PO 04/27/24 22:30 Empaglifozin 10 mg DAILY PO 04/28/24 10:00 04/29/24 09:51 10 MG EZETIMIBE 10 mg DAILY PO 04/28/24 10:00 04/29/24 09:51 10 MG Gabapentin 300 mg BID PO 04/28/24 10:00 04/29/24 20:55 300 MG Loratadine 10 mg DAILY PO 04/28/24 10:00 04/29/24 09:51 10 MG Metoprolol Succinate 50 mg DAILY PO 04/28/24 10:00 04/29/24 09:53 50 MG Pantoprazole Sodium 40 mg QAM PO 04/28/24 07:00 04/29/24 06:17 40 MG Valsartan 160 mg DAILY PO 04/28/24 10:00 04/29/24 09:55 160 MG Citalopram Hydrobromide 40 mg DAILY PO 04/28/24 10:00 04/29/24 09:53 40 MG Metformin HCl 750 mg DAILY PO 04/28/24 10:00 04/29/24 09:53 750 MG Atorvastatin Calcium 40 mg DAILY PO 04/28/24 10:00 04/29/24 09:59 40 MG Ceftriaxone Sodium/Dextrose 50 ml @ 50 mls/hr DAILY IV 04/28/24 10:00 04/29/24 09:56 50 MLS/HR Hydrochlorothiazide 12.5 mg DAILY PO 04/28/24 10:00 04/29/24 09:55 12.5 MG Oxycodone/ Acetaminophen 2 tab Q6HP PRN PO 04/27/24 23:00 04/29/24 03:46 2 TAB Hydromorphone HCl 0.8 mg Q4HP PRN IV 04/27/24 23:00 04/29/24 21:06 0.8 MG Ketorolac Tromethamine 15 mg Q6HPRN PRN IV 04/27/24 23:15 05/02/24 23:14 04/28/24 05:17 15 MG Patient Own Medication 1 tab DAILY PO 04/28/24 10:00 Hold Hydrocortisone Sodium Succinate 50 mg Q8HR IV 04/30/24 06:00 UNV objective Physical Exam Gen. appearance: Well-developed obese built middle-aged -[place] female appears to be hypovolemic, short of breath, reports chest discomfort HEENT Head normocephalic nontraumatic, Eyes-eyeball shrunken +2 Eyes EOMI, PERRLA, conjunctiva -pale, sclera nonicteric ENT-mild nasal congestion, no hyperemia of TM, Tongue/mucous membranes dry NECK: Supple, trachea R off midline , carotid upstroke +2, JVD 1 cm, No thyroid or lymph node enlargement, no use of accessory muscles F-kivnk-lqiqxezjse muscle tenderness present, ROM at C-spine full CHEST: Emphysematous, costochondral tenderness Hypoventilation at bilateral bases RS: Clear breath sounds at anterior lung [place] Reduced breath sounds at bilateral bases Scattered late inspiratory wheezes posterior bases CVS: PMI-2 cm lateral to L MCL line in the sixth ICS, S1-S2/A1-A2 normal sinus accentuated no gallop no murmur GI: Abdomen soft, obese +3, bowel sounds normoactive No focal tenderness, no mass or hernia, no hepatosplenomegaly Rectal: Stool OB negative no mass normal sphincter tone Genitourinary: Normal genitalia, no discharge, no focal lesions Back: CVA tenderness minimal, bilateral lumbosacral spinal muscle tenderness present Bilateral suprascapular point tenderness present Straight leg raising test negative EXTs: Wounds Bilateral upper extremities-multiple pigmented spots of varying geographic shapes due to dermatitis Pulses:Distal pulses +2, no rash, no edema, capillary refill instant, Feels peripherally warm Joints: Reduced ROM at bilateral hips and knee Neuro: Patient is awake alert oriented 3, affect depressed cognitive intact DTR +2, No focal motor deficit, changes of diabetic peripheral neuropathy, gait steady laboratory and microbiology Laboratory Tests 04/28/24 06:48 Test 04/28/24 06:48 Range/Units Serum Glucose 142 H 74-106 mg/dL Problem List Admitting Diagnosis: 1. Acute exacerbation of COPD Triggered by acute asthmatic bronchitis 2. Acute chest pains Acute [place] ruled out 3. Fairly well-controlled NIDDM and hypertension 4. Hypercholesterolemia 2' Diagnosis/Comorbidities 1. Morbid obesity Comprehensive clinical assessment and treatment plans Acute asthmatic bronchitis with acute exacerbation of COPD Status: Acute Present at the time of admission: Yes Problem specific AP Patient reports to have chest congestion and shortness of breath * Noted scattered late inspiratory wheezes at bilateral bases * Known history of COPD from passive exposure to smoking * Recommended sputum and blood cultures, IV antibiotics and bronchodilator Med-Neb treatments, IV steroids as tolerated (1) Acute chest pains- a. Unstable angina b. Rule out acute non [place] vs pulmonary embolism vs myocardial strain from uncontrolled hypertension c. Extensive cardiac history and risk factors-HTN, NIDDM, hypercholesterolemia, obesity Status: Acute Present at the time of admission: Yes Problem specific AP The patient presents with recurrent mid substernal pressure-like Chest pains referring to L shoulder attended with shortness of breath * Part of her current symptoms could be triggered from acute asthmatic bronchitis With COPD exacerbation wheezing and chest tightness * Noted costochondral tenderness and late inspiratory wheezes at posterior lung calhoun * She failed to respond to outpatient measures * Her initial EKG and serum troponins are unremarkable for old ASMI, * She has significant cardiac risk factors-hypertension, NIDDM, hypercholesterolemia CAD * Differential diagnosis could be -pulmonary embolism, acute flareup of fibromyalgia * Recommended patient to receive hospitalization * Recommended serial EKGs and enzymes, 2D echo * Her associate designer is Dr. Bull. * Recommend patient SL NTG, morphine, Plavix, Lovenox * Recommend to continue metoprolol, ARBS 2) (3) Acute flare-up of fibromyalgia Triggered by lower respiratory infection Status: Acute on chronic Assessment & Plan: Known history of fibromyalgia * Acute flare up triggered by acute asthmatic bronchitis * the patient reports to have generalized aches and pains including upper and Lower back * Recommended IV nonsteroidals, pain management (4) Hypovolemia Status: Acute Assessment & Plan: The patient is noted to have hypovolemia on physical exam * Recommended IV hypotonic saline with potassium and magnesium supplement riders (5) Hypercholesterolemia Status: Chronic Assessment & Plan: Known history of hypercholesterolemia Recommended patient to receive low-cholesterol diet and Lipitor Ecotrin. Side effects of medications are discussed with the patient (6) Uncontrolled hypertension Status: Chronic Assessment & Plan: Known history of hypertension for long time Complicated by severe concentric LVH on 2D echo-09/11/2020 Currently on beta-blockers Patient does not tolerate ACEI, recommend ARBs (7) Well controlled diabetes mellitus Status: Chronic Assessment & Plan: Her diabetes remains under fair control. Her hemoglobin A1c runs between 6.5 to 7% * Discussed with patient about all pertinent etiologic causes of uncontrolled NIDDM a. Obesity and insulin resistance b. Noncompliance with diet and medications c stress from acute [place], UTI Recommended patient a, 1800-calorie ADA diet b. Combination of basal and short acting insulin therapy c. Intentional weight loss of 100 lbs is through diet and exercise d. Monitoring hemoglobin A1c,, CMP every 3 months lipid panel every 6 months 24-hour urine check for microalbuminuria on annual basis e. Recommended annual physical exam by dentist, linux unix engineer and eye doctor f. Report to podiatry for any sign of inflammation or injury to foot (8) Morbid obesity in adult with current BMI >35-39 Kg/m Status: Chronic Assessment & Plan Her current BMI is high at 38 kg/m reflecting Her current body weight exceeds by 7588 LBS to ideal body weight Informed patient about complications of obesity which includes but not limited to a. Hypoxia, cardiac arrhythmias, pulmonary embolism, embolic CVA, sudden cardiac The patient is recommended weight loss of 80 pounds through Low-carb low calorie 1800-calorie diet and aerobic exercises as tolerated Recommended patient to follow a. daily weight, b. ADA 1800-calorie diet-40% calories from breakfast 30% calories from lunch and dinner each, avoid carbonated soda c. Recommended aerobic exercises like walking 1-5 miles per day, riding on a stationary bike for 1-2 hours (9) Exogenous dermatitis Status: Chronic Assessment & Plan: Status: Preexistent The patient will be treated with help of local application of betamethasone over dermatitis area, and Bactroban application or open wounds Plan Treatment plans as of today Admit to telemetry floor rEC 2 d ECHO rEC vq SCAN Place patient on NTG, morphine Place patient on metoprolol XL, and Lipitor continue Ecotrin 81 mg by mouth daily Continue metoprolol 50 mg PO twice daily Recommend antiplatelet agent like Plavix and Lovenox Reconcile home medications Obtain sputum and blood cultures PRN temp >101.5 Place patient on broad-spectrum IV antibiotics and bronchodilator Med-Neb treatment Careful IV hydration VTE the precautions Local application of Bactroban over bilateral upper extremity patient and her have been well informed by me about 1. Admission diagnosis, treatment plans, side effects of medications, course of the disease and fair to guarded prognosis 2. Modification of risk factors including intentional weight loss for obesity, tight control of diabetes and hypertension 3. All patient's and concerns raised by patient or family are satisfactorily addressed by me SULY CARDOZO MD Apr 29, 2024 23:17
[2024-04-30] VITALS (16 sets, daily range): BP systolic 123–160; BP diastolic 61–86; PULSE 64–77; RESP 16–18; TEMP 97.3–98.9; O2SAT 92–100
[2024-04-30] MEDS: HYDROCORTISONE SOD SUCC 100 MG/2ML INJ VIAL IV SCH (06:28)
[2024-04-30] MEDS: FUROSEMIDE 20 MG/2 ML VIAL IV ONE (07:47)
--- NOTE | 2024-04-30 17:58 | DVHSR ---
APPROVED REPORT EXAM: LIMITED Two-dimensional echocardiogram with contrast. Blood Pressure: 132/77 mmHg INDICATION chf RISK FACTORS Obesity: Height: 5'5, Weight: 237 DIMENSIONS LVDd4.1 (3.8-5.7cm)LA (2D) (1.9-4.0cm)Aortic Root3.2 (2.0-3.7cm) LVDs2.3 (2.5-4.0cm)LA (MM) (1.9-4.0cm)Aortic Cusp Exc1.9 (1.5-2.0cm) EF (%) 70.0 (55-70%)Rt. Atrium (1.9-4.0cm)Asc. Aorta3.0 cm IVSd1.4 (0.7-1.1cm)RV (D) (1.8-2.4cm) PWd1.0 (0.7-1.1cm) Mitral Valve MitralMitral Stenosis E wave0.95m/sMV Mean GR.mmHg A wave0.82m/sMV Peak GR.69mmHg E/A ratio1.22D MVAcm2 DECEL [id number] 1/2 Timems Aortic Valve Aortic ValveAortic Stenosis V10.99m/Pascale Mean GR.10mmHg V22.10m/Pascale Peak GR.18mmHg LVOT Diameter2.1 (1.8-2.4cm)Doppler AVA1.63cm2 Pulmonic Valve V21.10m/s Tricuspid Valve TR Velocity2.65m/s [id number] Conclusion Sinus rhythm. Mild concentric LVH. Sigmoid septum. Proximal septum encroaching upon LV outflow tract. No signifi cant outflow tract obstruction discernible. Valves are normal. 65% ejection fraction with normal RV function. Mild TR. No pericardial effusion masses or vegetations.
[2024-04-30] MEDS: NITROGLYCERIN 0.4 MG SL TAB SL PRN (20:15)
[2024-05-01] VITALS (10 sets, daily range): BP systolic 123–154; BP diastolic 50–120; PULSE 63–80; RESP 13–18; TEMP 97.6–98.3; O2SAT 94–98
--- NOTE | 2024-05-01 08:31 | ECG ---
[facility] Test Date: 2024-04-30 Test Time: 20:00:48 Pat Name: CANDELARIA HOOVER Department: Room: 0292T A Gender: F [employer] Career Manager: MARICEL : 1960 Requested By: SULY CARDOZO Order Number: [id number] Reading MD: Ruslan Mayo Measurements Intervals Galvin Rate: 69 P: 44 SD: 155 QRS: 23 QRSD: 84 T: 121 QT: 403 QTc: 432 Interpretive Statements Sinus rhythm Probable left atrial enlargement Probable LVH with secondary repol abnrm Anterior Q waves, possibly due to LVH Abnormal T consider ischemia lateral leads Electronically Signed On 05-01-2024 12:08:45 PST by Ruslan Mayo Please click the below link to view image of tracing.
--- NOTE | 2024-05-01 10:54 | DVH ---
NUCLEAR MEDICINE VENTILATION/PERFUSION LUNG SCAN. INDICATION: PULMONARY EMBOLISM TECHNIQUE: Following intravenous demonstration of 6 millicuries of technetium 99m MAA, and inhalati on of 40 mCi of Tc 99m DTPA scintigrams were obtained in multiple projections of the lungs. FINDINGS: There is normal uptake of radionuclide on both the ventilation and perfusion portions of the examinat ion. No mismatched perfusion defects are demonstrated. Uptake is normally homogeneous. IMPRESSION: Low probability for PE.
--- NOTE | 2024-05-01 12:56 | DVHPN2 ---
Progress Note - Dictate Date Seen: May 01, 2024 Subjective Reports to have improvement in symptoms of chest pains, chest congestion acute exacerbation of COPD, Musculoskeletal chest pains and acute flare-up of fibromyalgia. * Continued on IV antibiotics, parenteral analgesics * Continued on bronchodilators med neb treatments * Received V/Q scan-low probability for pulmonary embolism * Reviewed results of 2D echo exam Overnight events are reviewed through medical chart and case discussion with patient's assigned RN while making rounds on patient on the day of service vital signs Vital Sign Date Time Temp Pulse Resp B/P (MAP) Pulse Ox O2 Delivery O2 Flow Rate FiO2 05/01/24 10:26 139/64 05/01/24 10:00 57 05/01/24 09:48 97 Room Air 0.0 05/01/24 09:48 21 05/01/24 09:00 98.2 17 98.2 Total Intake and Output 04/30/24 04/30/24 05/01/24 15:00 23:00 07:00 Intake Total 50 ml 773 ml 850 ml Balance 50 ml 773 ml 850 ml medications Current Medications Medications Dose Ordered Sig/Kitty Route Start Time Stop Time Status Last Admin Dose Admin Nitroglycerin 0.4 mg Q5MINP PRN SL 04/27/24 22:30 04/30/24 20:15 0.4 MG Albuterol 2.5 mg Q4HPRN PRN NEB 04/27/24 22:30 04/30/24 19:35 2.5 MG Clopidogrel Bisulfate 75 mg DAILY PO 04/28/24 10:00 05/01/24 10:24 75 MG Docusate Sodium 100 mg DAILY PRN PO 04/27/24 22:30 Empaglifozin 10 mg DAILY PO 04/28/24 10:00 05/01/24 10:25 10 MG EZETIMIBE 10 mg DAILY PO 04/28/24 10:00 05/01/24 10:23 10 MG Gabapentin 300 mg BID PO 04/28/24 10:00 05/01/24 10:23 300 MG Loratadine 10 mg DAILY PO 04/28/24 10:00 05/01/24 10:23 10 MG Metoprolol Succinate 50 mg DAILY PO 04/28/24 10:00 04/30/24 09:57 50 MG Pantoprazole Sodium 40 mg QAM PO 04/28/24 07:00 05/01/24 05:56 40 MG Valsartan 160 mg DAILY PO 04/28/24 10:00 05/01/24 10:26 160 MG Citalopram Hydrobromide 40 mg DAILY PO 04/28/24 10:00 05/01/24 10:23 40 MG Metformin HCl 750 mg DAILY PO 04/28/24 10:00 05/01/24 10:28 750 MG Atorvastatin Calcium 40 mg DAILY PO 04/28/24 10:00 05/01/24 10:22 40 MG Ceftriaxone Sodium/Dextrose 50 ml @ 50 mls/hr DAILY IV 04/28/24 10:00 05/01/24 10:27 50 MLS/HR Hydrochlorothiazide 12.5 mg DAILY PO 04/28/24 10:00 05/01/24 10:24 12.5 MG Oxycodone/ Acetaminophen 2 tab Q6HP PRN PO 04/27/24 23:00 04/29/24 03:46 2 TAB Hydromorphone HCl 0.8 mg Q4HP PRN IV 04/27/24 23:00 05/01/24 04:47 0.8 MG Ketorolac Tromethamine 15 mg Q6HPRN PRN IV 04/27/24 23:15 05/02/24 23:14 04/30/24 04:04 15 MG Patient Own Medication 1 tab DAILY PO 04/28/24 10:00 Hold Hydrocortisone Sodium Succinate 50 mg Q8HR IV 04/30/24 06:00 05/01/24 05:56 50 MG objective Physical Exam Gen. appearance: Well-developed obese built middle-aged -[place] female appears to be hypovolemic, short of breath, reports chest discomfort HEENT Head normocephalic nontraumatic, Eyes-eyeball shrunken +2 Eyes EOMI, PERRLA, conjunctiva -pale, sclera nonicteric ENT-mild nasal congestion, no hyperemia of TM, Tongue/mucous membranes dry NECK: Supple, trachea R off midline , carotid upstroke +2, JVD 1 cm, No thyroid or lymph node enlargement, no use of accessory muscles X-haotx-osmxzlhcfy muscle tenderness present, ROM at C-spine full CHEST: Emphysematous, costochondral tenderness Hypoventilation at bilateral bases RS: Clear breath sounds at anterior lung [place] Reduced breath sounds at bilateral bases Scattered late inspiratory wheezes posterior bases CVS: PMI-2 cm lateral to L MCL line in the sixth ICS, S1-S2/A1-A2 normal sinus accentuated no gallop no murmur GI: Abdomen soft, obese +3, bowel sounds normoactive No focal tenderness, no mass or hernia, no hepatosplenomegaly Rectal: Stool OB negative no mass normal sphincter tone Genitourinary: Normal genitalia, no discharge, no focal lesions Back: CVA tenderness minimal, bilateral lumbosacral spinal muscle tenderness present Bilateral suprascapular point tenderness present Straight leg raising test negative EXTs: Wounds Bilateral upper extremities-multiple pigmented spots of varying geographic shapes due to dermatitis Pulses:Distal pulses +2, no rash, no edema, capillary refill instant, Feels peripherally warm Joints: Reduced ROM at bilateral hips and knee Neuro: Patient is awake alert oriented 3, affect depressed cognitive intact DTR +2, No focal motor deficit, changes of diabetic peripheral neuropathy, gait steady laboratory and microbiology Laboratory Tests 04/28/24 06:48 Test 04/28/24 06:48 Range/Units Serum Glucose 142 H 74-106 mg/dL Problem List Admitting Diagnosis: 1. Acute exacerbation of COPD Triggered by acute asthmatic bronchitis 2. Acute chest pains Acute OH ruled out 3. Fairly well-controlled NIDDM and hypertension 4. Hypercholesterolemia 2' Diagnosis/Comorbidities 1. Morbid obesity Comprehensive clinical assessment and treatment plans Acute asthmatic bronchitis with acute exacerbation of COPD Status: Acute Present at the time of admission: Yes Problem specific AP Patient reports to have chest congestion and shortness of breath * Noted scattered late inspiratory wheezes at bilateral bases * Known history of COPD from passive exposure to smoking * Recommended sputum and blood cultures, IV antibiotics and bronchodilator Med-Neb treatments, IV steroids as tolerated (1) Acute chest pains- a. Unstable angina b. Rule out acute non [place] OH vs pulmonary embolism vs myocardial strain from uncontrolled hypertension c. Extensive cardiac history and risk factors-HTN, NIDDM, hypercholesterolemia, obesity Status: Acute Present at the time of admission: Yes Problem specific AP The patient presents with recurrent mid substernal pressure-like Chest pains referring to L shoulder attended with shortness of breath * Part of her current symptoms could be triggered from acute asthmatic bronchitis With COPD exacerbation wheezing and chest tightness * Noted costochondral tenderness and late inspiratory wheezes at posterior lung [place] * She failed to respond to outpatient measures * Her initial EKG and serum troponins are unremarkable for old ASMI, * She has significant cardiac risk factors-hypertension, NIDDM, hypercholesterolemia CAD * Differential diagnosis could be -pulmonary embolism, acute flareup of fibromyalgia * Recommended patient to receive hospitalization * Recommended serial EKGs and enzymes, 2D echo * Her education trainer is Dr. Bull. * Recommend patient SL NTG, morphine, Plavix, Lovenox * Recommend to continue metoprolol, ARBS 2) (3) Acute flare-up of fibromyalgia Triggered by lower respiratory infection Status: Acute on chronic Assessment & Plan: Known history of fibromyalgia * Acute flare up triggered by acute asthmatic bronchitis * the patient reports to have generalized aches and pains including upper and Lower back * Recommended IV nonsteroidals, pain management (4) Hypovolemia Status: Acute Assessment & Plan: The patient is noted to have hypovolemia on physical exam * Recommended IV hypotonic saline with potassium and magnesium supplement riders (5) Hypercholesterolemia Status: Chronic Assessment & Plan: Known history of hypercholesterolemia Recommended patient to receive low-cholesterol diet and Lipitor Ecotrin. Side effects of medications are discussed with the patient (6) Uncontrolled hypertension Status: Chronic Assessment & Plan: Known history of hypertension for long time Complicated by severe concentric LVH on 2D echo-09/11/2020 Currently on beta-blockers Patient does not tolerate ACEI, recommend ARBs (7) Well controlled diabetes mellitus Status: Chronic Assessment & Plan: Her diabetes remains under fair control. Her hemoglobin A1c runs between 6.5 to 7% * Discussed with patient about all pertinent etiologic causes of uncontrolled NIDDM a. Obesity and insulin resistance b. Noncompliance with diet and medications c stress from acute OH, UTI Recommended patient a, 1800-calorie ADA diet b. Combination of basal and short acting insulin therapy c. Intentional weight loss of 100 lbs is through diet and exercise d. Monitoring hemoglobin A1c,, CMP every 3 months lipid panel every 6 months 24-hour urine check for microalbuminuria on annual basis e. Recommended annual physical exam by dentist, culinary assistant and eye doctor f. Report to podiatry for any sign of inflammation or injury to foot (8) Morbid obesity in adult with current BMI >35-39 Kg/m Status: Chronic Assessment & Plan Her current BMI is high at 38 kg/m reflecting Her current body weight exceeds by 7588 LBS to ideal body weight Informed patient about complications of obesity which includes but not limited to a. Hypoxia, cardiac arrhythmias, pulmonary embolism, embolic CVA, sudden cardiac The patient is recommended weight loss of 80 pounds through Low-carb low calorie 1800-calorie diet and aerobic exercises as tolerated Recommended patient to follow a. daily weight, b. ADA 1800-calorie diet-40% calories from breakfast 30% calories from lunch and dinner each, avoid carbonated soda c. Recommended aerobic exercises like walking 1-5 miles per day, riding on a stationary bike for 1-2 hours (9) Exogenous dermatitis Status: Chronic Assessment & Plan: Status: Preexistent The patient will be treated with help of local application of betamethasone over dermatitis area, and Bactroban application or open wounds Plan Treatment plans as of today Admit to telemetry floor rEC 2 d ECHO rEC vq SCAN Place patient on NTG, morphine Place patient on metoprolol XL, and Lipitor continue Ecotrin 81 mg by mouth daily Continue metoprolol 50 mg PO twice daily Recommend antiplatelet agent like Plavix and Lovenox Reconcile home medications Obtain sputum and blood cultures PRN temp >101.5 Place patient on broad-spectrum IV antibiotics and bronchodilator Med-Neb treatment Careful IV hydration VTE the precautions Local application of Bactroban over bilateral upper extremity patient and her have been well informed by me about 1. Admission diagnosis, treatment plans, side effects of medications, course of the disease and fair to guarded prognosis 2. Modification of risk factors including intentional weight loss for obesity, tight control of diabetes and hypertension 3. All patient's and concerns raised by patient or family are satisfactorily addressed by me SULY CARDOZO MD May 01, 2024 12:55
[2024-05-02] VITALS (11 sets, daily range): BP systolic 99–147; BP diastolic 49–81; PULSE 54–90; RESP 12–20; TEMP 98.4–98.7; O2SAT 93–100
== END 2024-05-02 14:05 | disposition home or self-care (01) | DRG 202 ==
LOC: WEST WING 20:55 → TELE-WESTW 04-28 04:46
PROVIDERS: ADMIT Specialist; ATTEND Specialist
DX: J45.901 Unspecified asthma with (acute) exacerbation (principal); J44.1 Chronic obstructive pulmonary disease with (acute) exacerbation; N39.0 Urinary tract infection, site not specified; M79.7 Fibromyalgia; E86.1 Hypovolemia; E78.00 Pure hypercholesterolemia, unspecified; I10 Essential (primary) hypertension; L30.9 Dermatitis, unspecified; E11.9 Type 2 diabetes mellitus without complications; E66.01 Morbid (severe) obesity due to excess calories; E88.819 Insulin resistance, unspecified; I25.10 Atherosclerotic heart disease of native coronary artery without angina pectoris; K21.9 Gastro-esophageal reflux disease without esophagitis; F31.9 Bipolar disorder, unspecified; Z96.642 Presence of left artificial hip joint; Z79.84 Long term (current) use of oral hypoglycemic drugs; Z79.82 Long term (current) use of aspirin; Z79.899 Other long term (current) drug therapy; Z98.61 Coronary angioplasty status; Z91.119 Patient's noncompliance with dietary regimen due to unspecified reason; Z91.148 Patient's other noncompliance with medication regimen for other reason; Z86.73 Personal history of transient ischemic attack (TIA), and cerebral infarction without residual deficits; Z87.440 Personal history of urinary (tract) infections; Z90.710 Acquired absence of both cervix and uterus; Z68.38 Body mass index [BMI] 38.0-38.9, adult
CPT/HCPCS: 36415; 71045; 78582; 80053; 80061; 81001; 83036; 83735; 84100; 84484; 85025; 85379; 85610; 85730; 87070; 87086; 87205; 93005; 93306; 94640; G0378; J1885

== ENCOUNTER 2024-05-29 15:36 | Inpatient (IN) | payer MEDICARE, MEDICAID ==
[~2024-05-29] VITALS: Ht 165.1 cm; Wt 105.7 kg
[2024-05-29 16:30] VITALS: BP 148/86; PULSE 60; RESP 20; TEMP 98.3; O2SAT 95
[2024-05-29 16:57] VITALS: BP 148/86; PULSE 60; RESP 20; TEMP 98.3; O2SAT 98
[2024-05-29] MEDS ORDERED: HYDROmorphone HCL 2 MG/ML VL/or syr IV PRN ×2 (17:30→18:00)
[2024-05-29] MEDS ORDERED: ALBUTEROL SULF HFA 90MCG INH 200DOSE IN PRN (17:30)
[2024-05-29] MEDS ORDERED: cloNIDine HCL 0.1 MG TAB PO PRN ×2 (17:30)
[2024-05-29] MEDS ORDERED: MORPHINE SULFATE INJ 2 MG/ml SYRG IV PRN (17:30)
[2024-05-29] MEDS ORDERED: NITROGLYCERIN 0.4 MG SL TAB SL PRN (17:30)
[2024-05-29] MEDS ORDERED: DOCUSATE SOD 100 MG CAP PO PRN (17:30)
[2024-05-29] MEDS: GABAPENTIN 300 MG CAP PO PRN (17:38)
[2024-05-29] MEDS: VALSARTAN 80 MG TAB PO SCH (17:38)
[2024-05-29 17:48] VITALS: PULSE 57; RESP 18; O2SAT 100
[2024-05-29] MEDS: ALBUTEROL SULF 2.5 MG/0.5ML(0.5%) NEB SOLN NEB PRN (17:49)
--- NOTE | 2024-05-29 17:56 | DVHHP2 ---
Admitting Diagnosis: Acute exacerbation of COPD Acute asthmatic bronchitis Acute flare-up of fibromyalgia History of Present Illness Patient contact: 05/29/2024 9:00 p.m. 63 year-old middle-aged -[place] female with a known history of hypertension, NIDDM, hypercholesterolemia, obesity and CAD status post PTCA 2007 as well as known history of COPD, fibromyalgia is directly admitted for further eval and management of progressive worsening of URI followed by chest congestion, productive cough shortness of breaths over past five days despite her receiving IV and oral antibiotics as outpatient Accompanying to these, patient also has symptoms of generalized aches and pains all over body to a point that she is not able to be up and around Her current symptoms become worse this morning, attended by me at the office this afternoon and recommended patient to receive hospitalization Onset/duration: x 5 days-worse this morning Severity: severe five to 7/10 Location: All over chest Characteristic: Achy pains Referral: L shoulder Associated symptoms: Chest congestion shortness of breath wheezing Aggravated by: Deep inspiration, cough #1 Alleviated by: Bronchodilator Med-Neb yet dialysis calvarial MRI is treatment Risk factors: COPD, obesity The patient is admitted to medical floor for further eval and management of acute exacerbation of asthmatic bronchitis/COPD Past Medical History Past medical history records: Reviewed Cardiovascular history: Long history of hypertension complicated by hypertensive CAD Suffered acute LA and noted to have occlusive disease of RCA requiring PTCA followed by stent placement in the year 2007 Patient suffers chronic stable angina requiring multiple hospitalization She received multiple stress EKG test and a ngiographic study including last one in November 2021 Respiratory history: COPD, obesity hypoventilation syndrome Gastrointestinal history: GE reflux Genitourinary history: Recurrent UTI over the past 12 months Endocrine history: Fairly well-controlled NIDDM-hemoglobin A1c stays under 6.5% to 7% Currently on metformin Exogenous obesity-BMI 41 kg/m, verbally counseled to lose weight of 100 pounds through diet and exercise Hypercholesterolemia currently on Lipitor-and Ecotrin Neurology history: History of CVA with no residual focal deficit Musculoskeletal history: Severe osteoarthritis affecting hip and knees-followed by Dr. Chandler Dermatitis affecting bilateral lower extremities Psychiatric history: Bipolar disorder-currently on Lamictal, Abilify Past Surgical History Total R hip replacement by Dr. Chandler Social History , lives with her spouse History of smoking: Cigarettes: Exposure to passive smoking for many years- father and spouse History of smoking E cigarettes: Never History of smoking marijuana: Never History of drinking alcohol: sober drinking on social occasions History of substance abuse: Never Patient Family History: Cardiovascular disease G8 FATHER, Onset: Diabetes mellitus FHx: cancer G8 MOTHER, Onset: Hypertension G8 MOTHER, Onset: G8 FATHER, Onset: Allergies: Coded Allergies: Benzalkonium Chloride (Verified Allergy, Unknown, 07/08/18) Dupilumab (Verified Allergy, Unknown, 05/30/24) Lisinopril (Verified Allergy, Unknown, 07/08/18) Sorbitan (Verified Allergy, Unknown, 05/30/24) Home Meds Active Scripts Valsartan (Valsartan) 80 Mg Tab, 160 MG PO DAILY@18 for 90 Days, TAB Hold if systolic BP < 110, angioedema Call PMD if angioedema of lips/tongue Prov:SULY CARDOZO MD 02/20/24 Gabapentin (Gabapentin) 300 Mg Cap, 1 CAP PO QHS PRN for MODERATE PAIN (4-6 PAIN SCALE), #90 CAP 5 Refills Prov:SULY CARDOZO MD 02/20/24 Loratadine (CLARITIN TABLET) 10 Mg Tb, 10 MG GT DAILY, #20 TAB Prov:SULY CARDOZO MD 01/20/22 Albuterol Sulfate (Ventolin) 2.5 Mg/0.5 Ml Nb, 2.5 MG NEB Q4HPRN PRN for 50 Days, #100 ML 1 Refill Prov:SULY CARDOZO MD 01/20/22 Reported Medications Multiple Vitamin (Multivitamins) Tab, 1 TAB PO DAILY, #90 TAB 3 Refills 05/29/24 Celecoxib (Celebrex) 200 Mg Cap, 200 MG PO HS, CAP 05/29/24 Betamethasone Dipropionate (Betamethasone Dipropionat) 0.05 % Oin, 1 APPLIC TD BID 05/29/24 Duloxetine HCl (Duloxetine HCl) 30 Mg Cap, 30 MG PO DAILY 05/29/24 Tizanidine Hydrochloride (Tizanidine Hcl) 4 Mg Tab, 4 MG PO BID 05/29/24 Oxybutynin Chloride (Oxybutynin Chloride) 5 Mg Tab, 10 MG PO DAILY 05/29/24 Oxycodone HCl (Oxycodone Hydrochloride) 20 Mg Tab, 20 MG PO Q8HPRN PRN for PAIN SCALE 7 THRU 10 05/29/24 Valsartan-Hydrochlorothiazide (Diovan Hct) 160 /12.5 Tab, 1 TAB PO DAILY 05/15/23 Meloxicam (Meloxicam) 15 Mg Tab, 1 TAB PO DAILY 05/15/23 Aripiprazole (Aripiprazole) 10 Mg Tab, 1 TAB PO DAILY 05/15/23 Metformin Hydrochloride (Metformin Hcl Er) 750 Mg Tab, 1 TAB PO DAILY, #90 TAB 3 Refills 05/12/23 Rosuvastatin Calcium (Crestor) 20 Mg Tab, 1 TAB PO DAILY for LOWER BAD CHOLESTEROL, #30 TAB 5 Refills 04/03/22 Pantoprazole Sodium Sesquihydr (Pantoprazole Sodium) 40 Mg Tab, 40 MG PO QAM for GERD, TAB PRIOR TO BREAKFAST PER PT SHOULD STILL BE ON THIS MEDICATION EVEN THOUGH NO P/UP HISTORY IN EXTERNAL MED 11/21/21 Ezetimibe (Zetia) 10 Mg Tab, 1 TAB PO DAILY for High Cholesterol, #30 TAB 5 Refills 11/21/21 Empagliflozin (Jardiance) 10 Mg Tab, 10 MG PO DAILY for DIABETES, TAB 11/21/21 Escitalopram Oxalate (ESCITALOPRAM OXALATE) 20 Mg Tab, 1 TAB PO DAILY for DEPRESSION, #30 TAB 5 Refills 11/21/21 Metoprolol Succinate (Metoprolol Succinate Er) 50 Mg Tab, 50 MG PO DAILY for BLOOD PRESSURE NEW DISCHARGE MED IS METOPROLOL SUCC ER 25 MG BID, BUT PATIENT HAS NOT STARTED TAKING YET AND WOULD LIKE TO BE KEPT ON 50 MG DAILY 07/12/20 Mupirocin Calcium (Topical) (MUPIROCIN) 2 % Cre, 1 APPLIC TOP BID for Skin infection PER PATIENT'S HOME MED LIST: APPLY TOPICALLY TO OPEN WOUNDS BID PT USES 2 GRAMS BID 01/18/20 Docusate Sodium (DOCQLACE) 100 Mg Cap, 100 MG PO DAILY PRN for FOR CONSTIPATION, CAP 06/04/18 Albuterol Sulfate (VENTOLIN MDI) 90 Mcg Ih, 2 PUFF IN Q6HPRN PRN for SHORTNESS O F BREATH EXTERNAL MED HX SAYS Q4HR. PATIENT USES Q6HR PRN 06/04/18 Clopidogrel Bisulfate (CLOPIDOGREL) 75 Mg Tab, 75 MG PO DAILY 06/04/18 Current Medications Current Medications Medications (Trade) Dose Ordered Sig/Kitty Route PRN Reason Start Time Stop Time Status Last Admin Clopidogrel Bisulfate (Plavix) 75 mg DAILY@1400 PO 05/30/24 14:00 Empaglifozin (Jardiance) 10 mg DAILY PO 05/30/24 10:00 EZETIMIBE (Zetia) 10 mg DAILY PO 05/30/24 10:00 05/30/24 09:10 Loratadine (Claritin Tablet) 10 mg DAILY PO 05/30/24 10:00 05/30/24 09:10 Metoprolol Succinate (Toprol Xl) 50 mg DAILY PO 05/30/24 10:00 05/30/24 09:11 Pantoprazole Sodium (Protonix Tablet) 40 mg QAM PO 05/30/24 07:00 05/30/24 06:03 Patient Own Medication 1 tab DAILY PO 05/30/24 10:00 Diagnostic Test (Pha) (Accu-Chek Comfort Curve T) 1 strip ACHS 05/29/24 22:00 05/30/24 17:11 Insulin Human Lispro (HumaLOG) AC SC 05/30/24 07:00 Insulin Human Lispro (HumaLOG) HS SC 05/29/24 22:00 05/29/24 21:44 Ketorolac Tromethamine (Toradol Injection) 30 mg Q8HPRN PRN IV MILD PAIN (1-5 PAIN SCALE) 05/30/24 00:00 06/04/24 00:00 05/30/24 06:10 Guaifenesin/ Codeine Phosphate (Robitussin/ Codeine Liq) 10 ml Q6HR PRN PO FOR COUGH 05/30/24 04:10 05/30/24 20:04 Potassium Chloride 100 ml @ 50 mls/hr Q12HR IV 05/30/24 22:00 Review of Systems Constitutional: Reports generalized weakness, low-grade fever, chills, denies weight loss HEENT: Denies headache, nasal/maxillary sinus congestion, rhinorrhea, lacrimation Denies conjunctival pains, denies hearing or visual deficits NECK: No symptoms of neck pains or stiffness CHEST: Reports chest pains, cough congestion, shortness of breath costochondral tenderness, RS: Reports cough, chest congestion, wheezing, shortness of breath, pleurisy CVS: Denies angina, shortness of breath, denies palpitation, : Denies heartburn, GE reflux, abdominal pains, N/V/D, melena : Denies symptoms of frequency, urgency, dysuria, hematuria BACK: Reports chronic back pains, radicular pains MS: Reports generalized aches and pains from fibromyalgia SKIN: Multiple scabbed wounds of upper and lower extremities EXTs: Multiple scabbed wounds no edema, no rash, no open wounds TRAIN CONTROLLER: No altered mental status, focal deficits, no GTC seizures, weakness PSYCH: bipolar disorder -denies suicidal thoughts ENDO: Denies excessive thirst or urination, denies intolerance to cold or heat HEM/ONC: No symptoms of anemia, leukemia or multiple myeloma ALLERGY no symptoms of allergy Vital Signs Vital Signs Date Time Temp Pulse Resp B/P (MAP) Pulse Ox O2 Delivery O2 Flow Rate FiO2 05/30/24 19:37 64 18 100 05/30/24 19:30 Room Air 0.0 05/30/24 19:30 21 05/30/24 17:22 112/54 05/30/24 16:33 97.8 97.8 Physical Exam Vital Sign Date Time Temp Pulse Resp B/P (MAP) Pulse Ox O2 Delivery O2 Flow Rate FiO2 05/29/24 19:06 60 18 141/82 (102) 100 05/29/24 21:00 98 70 20 137/69 (91) 94 Room air 21 Gen. appearance: Well-developed obese built middle-aged -[place] female appears to be hypovolemic, short of breath, reports chest discomfort HEENT Head normocephalic nontraumatic, Eyes-eyeball shrunken +2 Eyes EOMI, PERRLA, conjunctiva -pale, sclera nonicteric ENT-mild nasal congestion, no hyperemia of TM, Tongue/mucous membranes dry NECK: Supple, trachea R off midline , carotid upstroke +2, JVD 1 cm, No thyroid or lymph node enlargement, no use of accessory muscles [id number]-[id number] muscle tenderness present, ROM at C-spine full CHEST: Emphysematous, costochondral tenderness, Hypoventilation at bilateral bases RS: Clear breath sounds at anterior lung [place],Reduced breath sounds at bilateral bases Scattered late inspiratory wheezes, rales at posterior bases CVS: PMI-2 cm lateral to L MCL line in the sixth ICS, S1-S2/A1-A2 normal sinus accentuated no gallop no murmur GI: Abdomen soft, obese +3, bowel sounds normoactive, no focal tenderness no mass or hernia, no hepatosplenomegaly Rectal: Stool OB negative no mass normal sphincter tone Genitourinary: Normal genitalia, no discharge, no focal lesions Back: CVA tenderness minimal, bilateral lumbosacral spinal muscle tenderness present Bilateral suprascapular point tenderness present, Straight leg raising test negative EXTs: Wounds Bilateral upper extremities-multiple pigmented scabs of varying size Pulses:Distal pulses +2, no rash, no edema, capillary refill instant, Feels peripherally warm Joints: Reduced ROM at bilateral hips and knee Neuro: Patient is awake alert oriented 3, affect depressed cognitive intact DTR +2, No focal motor deficit, changes of diabetic peripheral neuropathy, ga it steady Results Labs Test 05/30/24 17:10 05/29/24 22:57 05/29/24 18:47 Range/Units POC Glucose 116 H 70-106 mg/dl Urine Color Light-yellow Yellow Urine Clarity Clear Clear Urine pH 5.0 5.0-9.0 Urine Specific [place] 1.009 1.001-1.035 Urine Protein Negative Negative Urine Ketones Negative Negative Urine Blood Negative Negative /uL Urine Nitrite Negative Negative Urine Bilirubin Negative Negative Urine Urobilinogen Normal Negative mg/dL Urine Leukocyte Esterase 2+ Negative /uL Urine RBC 2 0 - 4 /hpf Urine Microscopic WBC 48 H 0-5 /HPF Urine Squamous Epithelial Cells Few <5 /hpf Urine Bacteria None seen None Seen /hpf Urine Yeast (Budding) Many None Seen /hpf Urine Glucose 3+ H Normal mg/dL White Blood Count 8.0 4.4-10.8 10^3/uL Red Blood Count 4.74 4.0-5.20 10^6/uL Hemoglobin 12.5 12.2-16.2 g/dL Hematocrit 38.1 36.0-46.0 % Mean Corpuscular Volume 80.4 80.0-100.0 fL Mean Corpuscular Hemoglobin 26.3 L 28.0-32.0 pg Mean Corpuscular Hemoglobin Concent 32.7 32.0-36.0 g/dL Red Cell Distribution Width 15.5 H 11.8-14.3 % Platelet Count 320 140-450 10^3/uL Mean Platelet Volume 7.7 6.9-10.8 fL Neutrophils (%) (Auto) 45.9 37.0-80.0 % Lymphocytes (%) (Auto) 37.3 10.0-50.0 % Monocytes (%) (Auto) 12.1 H 0.0-12.0 % Eosinophils (%) (Auto) 3.5 0.0-7.0 % Basophils (%) (Auto) 1.2 0.0-2.0 % Neutrophils # (Auto) 3.7 1.6-8.6 10 ^3/uL Lymphocytes # (Auto) 3.0 0.4-5.4 10 ^3/uL Monocytes # (Auto) 1.0 0-1.3 10 ^3/uL Eosinophils # (Auto) 0.3 0-0.8 10 ^3/uL Basophils # (Auto) 0.1 0-0.2 10 ^3/uL Nucleated Red Blood Cells 0.1 % Sodium Level 140 136-145 mmol/L Potassium Level 3.5 3.5-5.1 mmol/L Chloride Level 106 98-107 mmol/L Carbon Dioxide Level 26 20-31 mmol/L Anion Gap 8 5-15 Blood Urea Nitrogen 10 9-23 mg/dL Creatinine 0.68 0.550-1.02 mg/dL Glomerular Filtration Rate Calc 96 >90 mL/min BUN/Creatinine Ratio 14.7 10.0-20.0 Serum Glucose 87 74-106 mg/dL Calcium Level 10.0 8.7-10.4 mg/dL Total Bilirubin 0.5 0.2-1.0 mg/dL Aspartate Amino Transferase (AST) 13 13-40 U/L Alanine Aminotransferase (ALT) 15 7-40 U/L Alkaline Phosphatase 101 46-116 U/L Total Protein 7.0 5.7-8.2 g/dL Albumin 4.3 3.2-4.8 g/dL Microbiology Date/Time Source Procedure Growth Status 05/29/24 19:12 Nose MRSA Screen - Final Complete 05/29/24 18:47 Blood Blood Culture - Preliminary NO GROWTH AFTER 24 HOURS OF INCUBATION. Resulted Primary Diagnosis Acute exacerbation of COPD Acute asthmatic bronchitis Admitting Diagnosis: Acute exacerbation of COPD Acute asthmatic bronchitis Failed to oral antibiotics Hypovolemia Acute flare-up of fibromyalgia 2' Diagnosis/Comorbidities Comprehensive clinical assessment 1) Acute asthmatic bronchitis Acute exacerbation of COPD Status: Acute Present at the time of admission: Yes Problem specific AP: - Based on history and physical exam-late inspiratory wheezes at bilateral bases Known history of COPD from passive exposure to smoking * Recommended sputum and blood cultures, * Recommended patient to receive IV antibiotics and bronchodilator Med-Neb treatments, IV steroids as tolerated (2) Acute flare-up of fibromyalgia Triggered by lower respiratory infection Status: Acute on chronic Assessment & Plan: Known history of fibromyalgia * Acute flare up triggered by viral upper respiratory infection * Reports severe generalized aches and pains including chest upper and Lower back * Recommended IV steroids, nonsteroidals, pain management (3) Hypovolemia Status: Acute Assessment & Plan: The patient is noted to have hypovolemia on physical exam * Recommended IV hypotonic saline with potassium supplement riders (4) Hypercholesterolemia Status: Chronic Assessment & Plan: Known history of hypercholesterolemia Recommended patient to receive low-cholesterol diet and Lipitor Ecotrin. Side effects of medications are discussed with the patient (5) Uncontrolled hypertension Status: Chronic Assessment & Plan: Known history of hypertension for long time Complicated by severe concentric LVH on 2D echo-09/11/2020 Currently on beta-blockers Recommend ARBs since patient had allergic reactions to Canelo I (7) Well controlled diabetes mellitus Status: Chronic Assessment & Plan: Her diabetes remains under fair control. Her hemoglobin A1c runs between 6.5 to 7% a. Obesity and insulin resistance b. Noncompliance with diet and medications c stress from acute LA, UTI Discussed with patient about all pertinent etiologic causes of uncontrolled NIDDM Full diabetic education is given to patient a, 1800-calorie ADA diet b. Combination of basal and short acting insulin therapy c. Intentional weight loss of 75 lbs is through diet and exercise d. Monitoring hemoglobin A1c,, CMP every 3 months lipid panel every 6 months 24-hour urine check for microalbuminuria on annual basis e. Recommended annual physical exam by dentist, water and fire technician and eye doctor f. Report to podiatry for any sign of inflammation or injury to foot (8) Morbid obesity in adult with current BMI >35-39 Kg/m Status: Chronic Assessment & Plan Her current BMI is high at 38 kg/m reflecting Her current body weight exceeds by 75 LBS to ideal body weight Informed patient about complications of obesity which includes but not limited to a. Hypoxia, cardiac arrhythmias, pulmonary embolism, embolic CVA, sudden cardiac The patient is recommended weight loss of 80 pounds through Low-carb low calorie 1800-calorie diet and aerobic exercises as tolerated Recommended patient to follow a. daily weight, b. ADA 1800-calorie diet-40% calories from breakfast 30% calories from lunch and dinner each, avoid carbonated soda c. Recommended aerobic exercises like walking 1-5 miles per day, riding on a stationary bike for 1-2 hours Treatment plans as of today Admit to telemetry floor Obtain EKGs p.r.n. chest pain Place patient on NTG, morphine Place patient on Lipitor and Plavix Continue metoprolol 50 mg PO twice daily Recommend antiplatelet agent like Lovenox Reconcile home medications Obtain sputum and blood cultures PRN temp >101.5 Place patient on broad-spectrum IV antibiotics and bronchodilator Med-Neb treatment Careful IV hydration Accu-Chek q.a.c. and HS Humalog sliding scale VTE the precautions Local application of Bactroban over bilateral upper extremity patient and her have been well informed by me about 1. Admission diagnosis, treatment plans, side effects of medications, course of the disease and fair to guarded prognosis 2. Modification of risk factors including intentional weight loss for obesity, tight control of diabetes and hypertension 3. All patient's and concerns raised by patient or family are satisfactorily addressed by me Plan discussed with: Patient Code Visit Code Visit Total Time (mins): 100 SULY CARDOZO MD May 29, 2024 17:56
[2024-05-29] MEDS: SOD CHL 0.45% 1,000 ML IV SCH (18:00)
[2024-05-29] MEDS: cefTRIAXone 1GM/50ML D5W 50 ML IV SCH (18:33)
[2024-05-29] MEDS: KETOROLAC TROMETH 30 MG/ML 1ML VIAL IV ONE (18:33)
[2024-05-29] MEDS: HYDROmorphone HCL 2 MG/ML VL/or syr IV PRN (19:06)
[2024-05-29 19:13] LABS: Basophils # (auto) 0.1 10 ^3/uL (0-0.2); Basophils % (auto) 1.2 % (0.0-2.0); Eosinophils # (auto) 0.3 10 ^3/uL (0-0.8); Eosinophils % (auto) 3.5 % (0.0-7.0); Hematocrit 38.1 % (36.0-46.0); Hemoglobin 12.5 g/dL (12.2-16.2); Lymphocytes % (auto) 37.3 % (10.0-50.0); Mean Corpuscular Hemoglobin 26.3 pg (28.0-32.0); Mean Corpuscular Hgb Conc. 32.7 g/dL (32.0-36.0); Mean Corpuscular Volume 80.4 fL (80.0-100.0); Monocytes % (auto) 12.1 % (0.0-12.0); Neutrophils # (auto) 3.7 10 ^3/uL (1.6-8.6); Neutrophils % (auto) 45.9 % (37.0-80.0); Nucleated Red Blood Cells % 0.1 %; Platelet Count (auto) 320 10^3/uL (140-450); Red Blood Cells 4.74 10^6/uL (4.0-5.20); Red Cell Distribution Width 15.5 % (11.8-14.3)
[2024-05-29 19:27] LABS: Alanine Aminotransferase 15 U/L (7-40); Albumin 4.3 g/dL (3.2-4.8); Alkaline Phosphatase 101 U/L (46-116); Anion Gap 8 (5-15); Aspartate Aminotransferase 13 U/L (13-40); BUN/Creatinine Ratio 14.7 (10.0-20.0); Bilirubin, Total 0.5 mg/dL (0.2-1.0); Blood Urea Nitrogen 10 mg/dL (9-23); Carbon Dioxide 26 mmol/L (20-31); Chloride 106 mmol/L (98-107); Glucose 87 mg/dL (74-106); Sodium 140 mmol/L (136-145)
[2024-05-29 19:39] LABS: Potassium 3.5 mmol/L (3.5-5.1)
[2024-05-29 19:42] VITALS: BP 141/82; PULSE 57; RESP 18; O2SAT 99
[2024-05-29 20:00] VITALS: PULSE 133
[2024-05-29 21:00] VITALS: BP 137/69; PULSE 70; RESP 20; TEMP 98; O2SAT 94
[2024-05-29] MEDS ORDERED: OXYC20TA72 PO (21:20)
[2024-05-29] MEDS: ACCU-CHEK COMFORT CURVE STRIP VI SCH (21:44)
[2024-05-29] MEDS: INSULIN LISPRO (HUMAN) 100 UNITS/ML ML SC SCH (21:44)
[2024-05-29] MEDS ORDERED: OXYB5TAB14 PO (22:13)
[2024-05-29] MEDS ORDERED: BETA0.0534 TD (22:23)
[2024-05-29] MEDS ORDERED: DULO1CAP5 PO (22:23)
[2024-05-29] MEDS ORDERED: TIZA-142 PO (22:23)
[2024-05-29] MEDS ORDERED: CELE200C PO (22:25)
[2024-05-29] MEDS ORDERED: MULT-1018 PO (22:28)
[2024-05-29 22:58] LABS: Urine Bacteria None Seen /hpf (None Seen)
[2024-05-29 23:28] LABS: Urine Blood Negative /uL (Negative); Urine Budding Yeast MANY /hpf (None Seen); Urine Clarity Clear (Clear); Urine Color Light-Yellow (Yellow); Urine Protein, UAD Negative (Negative); Urine Specific Gravity 1.009 (1.001-1.035); Urine Squamous Epithelial Cell FEW /hpf (<5); Urine Urobilinogen Normal (Negative); Urine WBC 48 /HPF (0-5)
[2024-05-30] VITALS (17 sets, daily range): BP systolic 104–140; BP diastolic 49–76; PULSE 59–82; RESP 17–24; TEMP 97.6–98.3; O2SAT 92–100
[2024-05-30] MEDS: guaiFENesin-CODEINE Liq 5 ML UD PO PRN (04:34)
[2024-05-30] MEDS: PANTOPRAZOLE 40 MG TAB PO SCH (06:03)
[2024-05-30] MEDS: KETOROLAC TROMETH 30 MG/ML 1ML VIAL IV PRN (06:10)
[2024-05-30] MEDS: INSULIN LISPRO (HUMAN) 100 UNITS/ML ML SC SCH (06:35)
[2024-05-30] MEDS: EMPAGLIFLOZIN 10 MG TAB PO SCH (09:06)
[2024-05-30] MEDS: ARIPIPRAZOLE 10 MG PO SCH (09:06)
[2024-05-30] MEDS: EZETIMIBE 10 MG TAB PO SCH (09:10)
[2024-05-30] MEDS: LORATADINE 10 MG TAB PO SCH (09:10)
[2024-05-30] MEDS: METOPROLOL SUCCINATE XL 50 MG TAB PO SCH (09:11)
--- NOTE | 2024-05-30 09:16 | DVH ---
EXAM: XR Chest, 2 Views CLINICAL INDICATION: R/o pneumonia TECHNIQUE: Frontal and lateral views of the chest. COMPARISON: XY CHEST TWO VIEWS ROUTINE on DOS: 02/15/24, XY CHEST TWO VIEWS ROUTINE on DOS: 07/13/23 , CXR2 on DOS: 01/15/22, CHEST TWO VIEWS ROUTINE on DOS: 01/15/22, CXR2 on DOS: 11/21/21 FINDINGS: LUNGS AND PLEURAL SPACES: Unremarkable. No consolidation. No pneumothorax. HEART: Unremarkable. No cardiomegaly. MEDIASTINUM: Unremarkable. Normal mediastinal contour. BONES/JOINTS: Unremarkable. No acute fracture. OTHER FINDINGS: . None. IMPRESSION: No acute cardiopulmonary process.
--- NOTE | 2024-05-30 11:35 | ECG ---
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
[2024-05-30] MEDS: CLOPIDOGREL BISULFATE 75 MG TAB PO SCH (13:32)
--- NOTE | 2024-05-30 20:48 | DVHPN2 ---
Progress Note - Dictate Date Seen: May 30, 2024 Has the PT tested + for MRSA If YES, has PT been informed?: No Medical Necessity Reason Pt with a Central, PICC or Fol: No Medical Necessity Reason IV antibiotics IV steroids, IV nonsteroidals Subjective The patient is currently being treated for progressive worsening of chest congestion Wheezing from acute exacerbation of acute asthmatic bronchitis/COPD * Currently receives IV antibiotics steroids and bronchodilators med neb Rx * Chest x-ray rules out pneumonia * Overnight events are reviewed through medical chart and case discussion with patient's assigned RN while making rounds on patient on the day of service vital signs Vital Sign Date Time Temp Pulse Resp B/P (MAP) Pulse Ox O2 Delivery O2 Flow Rate FiO2 05/30/24 19:37 64 18 100 05/30/24 19:30 Room Air 0.0 05/30/24 19:30 21 05/30/24 17:22 112/54 05/30/24 16:33 97.8 97.8 Total Intake and Output 05/29/24 05/29/24 05/30/24 15:00 23:00 07:00 Intake Total 50 ml 1700 ml Output Total 0 ml Balance 50 ml 1700 ml medications Current Medications Medications Dose Ordered Sig/Kitty Route Start Time Stop Time Status Last Admin Dose Admin Nitroglycerin 0.4 mg Q5MINP PRN SL 05/29/24 17:30 Morphine Sulfate 2 mg Q30M PRN IV 05/29/24 17:30 Albuterol 2.5 mg Q4HPRN PRN NEB 05/29/24 17:30 05/30/24 19:33 2.5 MG Clopidogrel Bisulfate 75 mg DAILY@1400 PO 05/30/24 14:00 Docusate Sodium 100 mg DAILY PRN PO 05/29/24 17:30 Empaglifozin 10 mg DAILY PO 05/30/24 10:00 EZETIMIBE 10 mg DAILY PO 05/30/24 10:00 05/30/24 09:10 10 MG Gabapentin 300 mg BID PRN PO 05/29/24 17:30 05/30/24 04:34 300 MG Loratadine 10 mg DAILY PO 05/30/24 10:00 05/30/24 09:10 10 MG Metoprolol Succinate 50 mg DAILY PO 05/30/24 10:00 05/30/24 09:11 50 MG Pantoprazole Sodium 40 mg QAM PO 05/30/24 07:00 05/30/24 06:03 40 MG Valsartan 160 mg DAILY@1800 PO 05/29/24 18:00 05/30/24 17:22 160 MG Patient Own Medication 1 tab DAILY PO 05/30/24 10:00 Diagnostic Test (Pha) 1 strip ACHS 05/29/24 22:00 05/30/24 17:11 1 STRIP Insulin Human Lispro AC SC 05/30/24 07:00 Insulin Human Lispro HS SC 05/29/24 22:00 05/29/24 21:44 2 UNITS Hydromorphone HCl 0.8 mg Q4HP PRN IV 05/29/24 17:30 05/30/24 16:03 0.8 MG Clonidine HCl 0.3 mg Q6HPRN PRN PO 05/29/24 17:30 Clonidine HCl 0.2 mg Q6H PRN PO 05/29/24 17:30 Clonidine HCl 0.1 mg Q6HP PRN PO 05/29/24 17:30 Ceftriaxone Sodium 50 ml @ 100 mls/hr DAILY@09 IV 05/29/24 17:48 05/30/24 09:10 100 MLS/HR Sodium Chloride 1,000 ml @ 50 mls/hr Q20H IV 05/29/24 18:00 05/30/24 13:43 50 MLS/HR Ketorolac Tromethamine 30 mg Q8HPRN PRN IV 05/30/24 00:00 06/04/24 00:00 05/30/24 06:10 30 MG Hydromorphone HCl 0.6 mg Q4HP PRN IV 05/29/24 18:15 Guaifenesin/ Codeine Phosphate 10 ml Q6HR PRN PO 05/30/24 04:10 05/30/24 20:04 10 ML Potassium Chloride 100 ml @ 50 mls/hr Q12HR IV 05/30/24 22:00 objective Gen. appearance: Well-developed obese built middle-aged -[place] female appears to be hypovolemic, chest congestion HEENT Head normocephalic nontraumatic, Eyes-eyeball shrunken +1 Eyes EOMI, PERRLA, conjunctiva -pale, sclera nonicteric ENT-mild nasal congestion, no hyperemia of TM, Tongue/mucous membranes dry NECK: Supple, trachea R off midline , carotid upstroke +2, JVD 1 cm, No thyroid or lymph node enlargement, no use of accessory muscles A-rsura-rbwnwrmdnm muscle tenderness present, ROM at C-spine full CHEST: Emphysematous, Hypoventilation at bilateral bases RS: Clear breath sounds at anterior lung calhoun, reduced at bases Scattered late inspiratory wheezes posterior bases CVS: PMI-2 cm lateral to L MCL line in the sixth ICS, S1-S2/A1-A2 normal sinus accentuated no gallop no murmur GI: Abdomen soft, obese +3, bowel sounds normoactive No focal tenderness, no mass or hernia, no hepatosplenomegaly Genitourinary: Deferred Back: CVA tenderness minimal, bilateral lumbosacral spinal muscle tenderness present Bilateral suprascapular point tenderness present, Straight leg raising test negative EXTs: Wounds-multiple scabs Pulses:Distal pulses +2, no rash, no edema, capillary refill instant, Feels peripherally warm Joints: Reduced ROM at bilateral hips and knee Neuro: Awake alert oriented 3, affect depressed cognitive intact DTR +2, No focal motor deficit, changes of diabetic peripheral neuropathy, gait steady laboratory and microbiology Lower Laboratory Tests 05/29/24 18:47 Test 05/29/24 18:47 Range/Units Serum Glucose 87 74-106 mg/dL EXAM: XR Chest, 2 Views CLINICAL INDICATION: R/o pneumonia TECHNIQUE: Frontal and lateral views of the chest. COMPARISON: XY CHEST TWO VIEWS ROUTINE on DOS: 02/15/24, XY CHEST TWO VIEWS ROUTINE on DOS: 07/13/23, CXR2 on DOS: 01/15/22, CHEST TWO VIEWS ROUTINE on DOS: 01/15/22, CXR2 on DOS: 11/21/21 FINDINGS: LUNGS AND PLEURAL SPACES: Unremarkable. No consolidation. No pneumothorax. HEART: Unremarkable. No cardiomegaly. MEDIASTINUM: Unremarkable. Normal mediastinal contour. BONES/JOINTS: Unremarkable. No acute fracture. OTHER FINDINGS: . None. IMPRESSION: No acute cardiopulmonary process. Problem List Acute exacerbation of COPD Acute asthmatic bronchitis Failed to oral antibiotics Hypovolemia Acute flare-up of fibromyalgia 2' Diagnosis/Comorbidities Exogenous obesity in adult with current BMI > 35-39 kg/m2 Assessment/Plan Comprehensive clinical assessment 1) Acute asthmatic bronchitis Acute exacerbation of COPD Status: Acute Present at the time of admission: Yes Problem specific AP: - Based on history and physical exam-late inspiratory wheezes at bilateral bases Known history of COPD from passive exposure to smoking * Awaiting sputum and blood cultures, * Continued patient to receive IV antibiotics and bronchodilator Med-Neb treatments, IV steroids as tolerated (2) Acute flare-up of fibromyalgia Triggered by lower respiratory infection Status: Acute on chronic Assessment & Plan: Known history of fibromyalgia * Acute flare up triggered by viral upper respiratory infection * Reports severe generalized aches and pains including chest upper and Lower back -seems to be responding to IV Toradol * Continued IV steroids, nonsteroidals, pain management (3) Hypovolemia Status: Acute Assessment & Plan: The patient is noted to have hypovolemia on physical exam * Continued IV hypotonic saline with potassium supplement riders (4) Hypercholesterolemia Status: Chronic Assessment & Plan: Known history of hypercholesterolemia Continued patient to receive low-cholesterol diet and Lipitor Ecotrin. Side effects of medications are discussed with the patient (5) Uncontrolled hypertension Status: Chronic Assessment & Plan: Known history of hypertension for long time Complicated by severe concentric LVH on 2D echo-09/11/2020 Currently on beta-blockers Recommend ARBs since patient had allergic reactions to Canelo I (7) Well controlled diabetes mellitus Status: Chronic Assessment & Plan: Her diabetes remains under fair control. Her hemoglobin A1c runs between 6.5 to 7% a. Obesity and insulin resistance b. Noncompliance with diet and medications c stress from acute [place], UTI Discussed with patient about all pertinent etiologic causes of uncontrolled NIDDM Recommended Accu-Chek q.a.c. and Recommended oral hypoglycemics and Humalog to sliding scale Full diabetic education is given to patient a, 1800-calorie ADA diet b. Combination of basal and short acting insulin therapy c. Intentional weight loss of 75 lbs is through diet and exercise d. Monitoring hemoglobin A1c,, CMP every 3 months lipid panel every 6 months 24-hour urine check for microalbuminuria on annual basis e. Recommended annual physical exam by dentist, lpn per diem and eye doctor f. Report to podiatry for any sign of inflammation or injury to foot (8) Morbid obesity in adult with current BMI >35-39 Kg/m Status: Chronic Assessment & Plan Her current BMI is high at 38 kg/m reflecting Her current body weight exceeds by 75 LBS to ideal body weight Informed patient about complications of obesity which includes but not limited to a. Hypoxia, cardiac arrhythmias, pulmonary embolism, embolic CVA, sudden cardiac The patient is recommended weight loss of 80 pounds through Low-carb low calorie 1800-calorie diet and aerobic exercises as tolerated Recommended patient to follow a. daily weight, b. ADA 1800-calorie diet-40% calories from breakfast 30% calories from lunch and dinner each, avoid carbonated soda c. Recommended aerobic exercises like walking 1-5 miles per day, riding on a stationary bike for 1-2 hours Treatment plans as of today Admit to telemetry floor Continue patient on NTG, morphine Continue patient on Lipitor and Plavix Continue metoprolol 50 mg PO twice daily Recommend antiplatelet agent like Lovenox Reconciled home medications Await for sputum and blood cultures PRN temp >101.5 Place patient on broad-spectrum IV antibiotics and bronchodilator Med-Neb treatment Careful IV hydration Accu-Chek q.a.c. and HS Humalog sliding scale VTE the precautions Local application of Bactroban over bilateral upper extremity patient and her have been well informed by me about 1. Admission diagnosis, treatment plans, side effects of medications, course of the disease and fair to guarded prognosis 2. Modification of risk factors including intentional weight loss for obesity, tight control of diabetes and hypertension 3. All patient's and concerns raised by patient or family are satisfactorily addressed by me Prognosis Fair to guarded Dietary Evaluation Review Recommendations by RD: Decrease Calorie Intake Comments: Recommended patient to receive 2000 calorie low carb high-protein diet Expected Outcomes/Goals: Recommended patient to intentionally lose 75 lbs through diet and exercise Interpretation of weight loss: up to 10% in 6 months Plan discussed with: Patient Total Time (mins): 45 SULY CARDOZO MD May 30, 2024 20:48
[2024-05-30] MEDS: POTASSIUM CHL 20MEQ/100ML 100 ML IV SCH (22:49)
[2024-05-31] VITALS (13 sets, daily range): BP systolic 118–156; BP diastolic 68–80; PULSE 56–75; RESP 14–20; TEMP 97.6–98.4; O2SAT 94–100
[2024-05-31 07:00] LABS: Alanine Aminotransferase 11 U/L (7-40); Albumin 3.8 g/dL (3.2-4.8); Alkaline Phosphatase 86 U/L (46-116); Anion Gap 5 (5-15); BUN/Creatinine Ratio 11.3 (10.0-20.0); Calcium 9.1 mg/dL (8.7-10.4); Carbon Dioxide 26 mmol/L (20-31); LDL Cholesterol 87 mg/dL (< 100); Magnesium 1.8 mg/dL (1.6-2.6); Potassium 3.6 mmol/L (3.5-5.1); Sodium 141 mmol/L (136-145); Total Protein 6.3 g/dL (5.7-8.2); Triglycerides 101 mg/dL (< 150)
[2024-05-31 07:01] LABS: Aspartate Aminotransferase 10 U/L (13-40); Bilirubin, Total 0.2 mg/dL (0.2-1.0); Blood Urea Nitrogen 8 mg/dL (9-23); Chloride 110 mmol/L (98-107); Cholesterol 138 mg/dL (< 200); Glucose 134 mg/dL (74-106); HDL Cholesterol 37 mg/dL (40-59); Phosphorus 2.5 mg/dL (2.4-5.1)
--- NOTE | 2024-05-31 17:23 | DVHPN2 ---
Progress Note - Dictate Date Seen: May 31, 2024 Has the PT tested + for MRSA If YES, has PT been informed?: No Medical Necessity Reason Pt with a Central, PICC or Fol: No Medical Necessity Reason Acute chest pain Abnormal EKG Chest congestion shortness of breath Subjective This evening patient developed symptoms of acute chest pains Her 12 lead EKG was remarkable for inverted T-waves in lateral leads * Patient has a known history of CAD Patient received sublingual nitroglycerin and morphine for pain management Refer patient to Dr. Rios * Continues to have symptoms of chest congestion, wheezing and shortness of breaths * Continued patient on IV antibiotics and bronchodilators med neb Rx * Chest x-ray ruled out pneumonia Overnight events are reviewed through medical chart and case discussion with patient's assigned RN while making rounds on patient on the day of service vital signs Vital Sign Date Time Temp Pulse Resp B/P (MAP) Pulse Ox O2 Delivery O2 Flow Rate FiO2 05/31/24 16:50 98.4 68 20 153/76 (101) 95 98.4 05/31/24 14:21 Room Air 0.0 05/31/24 14:21 21 Total Intake and Output 05/30/24 05/30/24 05/31/24 15:00 23:00 07:00 Intake Total 1960 ml 1050 ml Output Total 1000 ml 0 ml Balance 960 ml 1050 ml medications Current Medications Medications Dose Ordered Sig/Kitty Route Start Time Stop Time Status Last Admin Dose Admin Nitroglycerin 0.4 mg Q5MINP PRN SL 05/29/24 17:30 Morphine Sulfate 2 mg Q30M PRN IV 05/29/24 17:30 Albuterol 2.5 mg Q4HPRN PRN NEB 05/29/24 17:30 05/31/24 14:20 2.5 MG Clopidogrel Bisulfate 75 mg DAILY@1400 PO 05/30/24 14:00 Docusate Sodium 100 mg DAILY PRN PO 05/29/24 17:30 Empaglifozin 10 mg DAILY PO 05/30/24 10:00 EZETIMIBE 10 mg DAILY PO 05/30/24 10:00 05/31/24 10:38 10 MG Gabapentin 300 mg BID PRN PO 05/29/24 17:30 05/30/24 21:16 300 MG Loratadine 10 mg DAILY PO 05/30/24 10:00 05/31/24 09:00 10 MG Metoprolol Succinate 50 mg DAILY PO 05/30/24 10:00 05/31/24 09:00 50 MG Pantoprazole Sodium 40 mg QAM PO 05/30/24 07:00 05/31/24 05:14 40 MG Valsartan 160 mg DAILY@1800 PO 05/29/24 18:00 05/30/24 17:22 160 MG Patient Own Medication 1 tab DAILY PO 05/30/24 10:00 Diagnostic Test (Pha) 1 strip ACHS 05/29/24 22:00 05/31/24 11:37 1 STRIP Insulin Human Lispro AC SC 05/30/24 07:00 05/31/24 11:45 300 UNITS Insulin Human Lispro HS SC 05/29/24 22:00 05/30/24 21:47 4 UNITS Hydromorphone HCl 0.8 mg Q4HP PRN IV 05/29/24 17:30 05/31/24 09:23 0.8 MG Clonidine HCl 0.3 mg Q6HPRN PRN PO 05/29/24 17:30 Clonidine HCl 0.2 mg Q6H PRN PO 05/29/24 17:30 Clonidine HCl 0.1 mg Q6HP PRN PO 05/29/24 17:30 Ceftriaxone Sodium 50 ml @ 100 mls/hr DAILY@09 IV 05/29/24 17:48 05/31/24 09:00 100 MLS/HR Sodium Chloride 1,000 ml @ 50 mls/hr Q20H IV 05/29/24 18:00 05/31/24 10:00 50 MLS/HR Ketorolac Tromethamine 30 mg Q8HPRN PRN IV 05/30/24 00:00 06/04/24 00:00 05/31/24 06:29 30 MG Hydromorphone HCl 0.6 mg Q4HP PRN IV 05/29/24 18:15 Guaifenesin/ Codeine Phosphate 10 ml Q6HR PRN PO 05/30/24 04:10 05/31/24 09:23 10 ML Potassium Chloride 100 ml @ 50 mls/hr Q12HR IV 05/30/24 22:00 05/31/24 10:00 50 MLS/HR objective Gen. appearance: Well-developed obese built middle-aged -[place] female Reports to have chest pains, chest congestion and hypovolemia HEENT Head normocephalic nontraumatic, Eyes-eyeball shrunken +1 Eyes EOMI, PERRLA, conjunctiva -pale, sclera nonicteric ENT-mild nasal congestion, TM-WNL, tongue/mucous membrane-dry NECK: Supple, trachea R off midline , carotid upstroke +2, JVD 1 cm, No thyroid or lymph node enlargement, no use of accessory muscles J-yivpl-pjrncwybhl muscle tenderness present, ROM at C-spine full CHEST: Emphysematous, Hypoventilation at bilateral bases Costochondral tenderness present RS: Clear breath sounds at anterior lung [place], reduced at bases Scattered late inspiratory wheezes posterior bases CVS: PMI-2 cm lateral to L MCL line in the sixth ICS, S1-S2/A1-A2 normal sinus accentuated no gallop no murmur GI: Abdomen soft, obese +3, bowel sounds normoactive No focal tenderness, no mass or hernia, no hepatosplenomegaly Genitourinary: Deferred Back: CVA tenderness minimal, bilateral lumbosacral spinal muscle tenderness present Bilateral suprascapular point tenderness present, Straight leg raising test negative EXTs: Wounds-multiple scabs Pulses:Distal pulses +2, no rash, no edema, capillary refill instant Feels peripherally warm Joints: Reduced ROM at bilateral hips and knee Neuro: Awake alert oriented 3, affect depressed cognitive intact DTR +2, No focal motor deficit, changes of diabetic peripheral neuropathy, gait steady laboratory and microbiology Laboratory Tests 05/31/24 06:11 05/29/24 18:47 Test 05/31/24 06:11 Range/Units Serum Glucose 134 H 74-106 mg/dL Problem List Acute chest pain-rule out [place] Acute exacerbation of COPD Acute asthmatic bronchitis Failed to oral antibiotics Hypovolemia Acute flare-up of fibromyalgia 2' Diagnosis/Comorbidities Exogenous obesity in adult with current BMI > 35-39 kg/m2 Assessment/Plan Comprehensive clinical assessment 1) Acute chest pain -rule out [place] Status: Acute Present at the time of admission: no Problem specific AP: * Patient reported sudden onset of nonexertional chest pain Relieved by sublingual nitroglycerin and morphine 2 mg * Costochondral tenderness present at L fifth ICS * 12 lead EKG shows inverted T-waves in lateral leads * Serum troponins of pitting normal limits * Referred patient to Dr. Rios, Cardiolite 2) Acute asthmatic bronchitis Acute exacerbation of COPD Status: Acute Present at the time of admission: Yes Problem specific AP: - Based on history and physical exam-late inspiratory wheezes at bilateral bases Known history of COPD from passive exposure to smoking * Seems to be responding to IV antibiotics and bronchodilator Med-Neb treatments, * Awaiting sputum and blood cultures, (3) Acute flare-up of fibromyalgia Triggered by lower respiratory infection Status: Acute on chronic Assessment & Plan: Known history of fibromyalgia * Acute flare up triggered by viral upper respiratory infection * Reports severe generalized aches and pains including chest upper and Lower back -seems to be responding to IV Toradol and IV Dilaudid (3) Hypovolemia Status: Acute Assessment & Plan: The patient is noted to have hypovolemia on physical exam * Continued IV hypotonic saline with potassium supplement riders (4) Hypercholesterolemia Status: Chronic Assessment & Plan: Known history of hypercholesterolemia Continued patient to receive low-cholesterol diet and Lipitor Ecotrin. Side effects of medications are discussed with the patient (5) Uncontrolled hypertension Status: Chronic Assessment & Plan: Known history of hypertension for long time Complicated by severe concentric LVH on 2D echo-09/11/2020 Currently on beta-blockers Recommend ARBs since patient had allergic reactions to Canelo I (6) Well controlled diabetes mellitus Status: Chronic Assessment & Plan: Her diabetes remains under fair control. Her hemoglobin A1c runs between 6.5 to 7% a. Obesity and insulin resistance b. Noncompliance with diet and medications c stress from acute [place], UTI Discussed with patient about all pertinent etiologic causes of uncontrolled NIDDM Recommended Accu-Chek q.a.c. and Recommended oral hypoglycemics and Humalog to sliding scale Full diabetic education is given to patient a, 1800-calorie ADA diet b. Combination of basal and short acting insulin therapy c. Intentional weight loss of 75 lbs is through diet and exercise d. Monitoring hemoglobin A1c,, CMP every 3 months lipid panel every 6 months 24-hour urine check for microalbuminuria on annual basis e. Recommended annual physical exam by dentist, book packer and eye doctor f. Report to podiatry for any sign of inflammation or injury to foot (7) Morbid obesity in adult with current BMI >35-39 Kg/m Status: Chronic Assessment & Plan Her current BMI is high at 38 kg/m reflecting Her current body weight exceeds by 75 LBS to ideal body weight Informed patient about complications of obesity which includes but not limited to a. Hypoxia, cardiac arrhythmias, pulmonary embolism, embolic CVA, sudden cardiac The patient is recommended weight loss of 75 pounds through Low-carb low calorie 1800-calorie diet and aerobic exercises as tolerated Recommended patient to follow a. daily weight, b. ADA 1800-calorie diet-40% calories from breakfast 30% calories from lunch and dinner each, avoid carbonated soda c. Recommended aerobic exercises like walking 1-5 miles per day, riding on a stationary bike for 1-2 hours Treatment plans as of today Continue hospital stay at telemetry floor Continue patient on NTG, morphine Repeat EKGs and serum troponins Refer to Dr. Rios Continue patient on Lipitor and Plavix Continue metoprolol 50 mg PO twice daily Recommend antiplatelet agent like Lovenox Await for sputum and blood cultures PRN temp >101.5 Continue IV Rocephin and bronchodilator Med-Neb treatment Careful IV hydration Accu-Chek q.a.c. and HS Humalog sliding scale VTE the precautions Local application of Bactroban over bilateral upper extremity patient and her have been well informed by me about 1. Admission diagnosis, treatment plans, side effects of medications, course of the disease and fair to guarded prognosis 2. Modification of risk factors including intentional weight loss for obesity, tight control of diabetes and hypertension 3. All patient's and concerns raised by patient or family are satisfactorily addressed by me Prognosis Fair Dietary Evaluation Review Recommendations by RD: Decrease Calorie Intake Comments: Recommended patient to receive 2000 calorie low carb high-protein diet Expected Outcomes/Goals: Recommended patient to intentionally lose 75 lbs through diet and exercise Goal is to avoid obesity related comorbidities such as obesity hypoventilation, Cardiac arrhythmias Interpretation of weight loss: up to 10% in 6 months Plan discussed with: Patient Total Time (mins): 45 SULY CARDOZO MD May 31, 2024 17:23
[2024-05-31] MEDS ORDERED: SOD CHL 0.45% 1,000 ML IV SCH (17:30)
[2024-05-31] MEDS: SOD CHL 0.45% 1,000 ML IV SCH (18:49)
[2024-05-31] MEDS: POTASSIUM CHL 20MEQ/100ML 100 ML IV SCH (18:50)
[2024-06-01] VITALS (12 sets, daily range): BP systolic 121–179; BP diastolic 54–95; PULSE 53–75; RESP 15–19; TEMP 97.6–98.1; O2SAT 96–100
--- NOTE | 2024-06-01 09:30 | DVHINCON2 ---
LIZ VAZQUEZ [facility] 06/01/24 0929: Date Seen: Jun 01, 2024 Referring Physician MD Melvin Reason for Consultation Acute angina History of Present Illness This is 64-year-old female who presented as a direct admission to the hospital found for a chief complaint of chest pain for two weeks. Describes her chest pain as substernal, sharp in nature, radiating to her right shoulder where she acknowledges an injury, non provoked, and associated with mild SOB and a productive cough. She underwent multiple 12 lead electrocardiogram revealing a sinus rhythm with ST segment depression to lateral leads progressing to lead V4 on latest ECG. Serial troponin levels are negative. Follows up in the outpatient setting with primary director biostatistics Dr. Bull undergoing a recent transthoracic echocardiogram and Cardiolite stress test at [facility] on 05/26/2024. She has an upcoming follow-up appointment for results on 07/07/2024. Stress test results were accessed by Dr. Bray revealing no evidence of ischemia and intact LV function. Significant medical history includes coronary artery disease status post PTCA to the RCA x1 RACHELE in 2009, hypertension, dyslipidemia, fibromyalgia, arthritis, COPD with O2 dependence, gxy-frnxhoc-[id number] diabetes mellitus, bipolar disorder, obesity, and remote history of tobacco use. Past Medical History Past medical history reviewed. No other significant than mentioned above. Past Surgical History PTCA with a stent placement to the RCA x1 RACHELE, 2009 Left breast lumpectomy, 1989 Right hip replacement, 2013 Hysterectomy, 1998 Left knee, 2018 Right knee, 2016 Family History: Cardiovascular disease G8 FATHER, Onset:25's - 30 Diabetes mellitus FHx: cancer G8 MOTHER, Onset:s - 40 Hypertension G8 MOTHER, Onset:30s - 40 G8 FATHER, Onset:30's - 40 Family History Denies the use of illicit drugs, alcohol, or tobacco use. Social History Denies the use of illicit drugs, alcohol, or tobacco use. Allergies: Coded Allergies: Benzalkonium Chloride (Verified Allergy, Unknown, 07/08/18) Dupilumab (Verified Allergy, Unknown, 05/30/24) Lisinopril (Verified Allergy, Unknown, 07/08/18) Sorbitan (Verified Allergy, Unknown, 05/30/24) Home Meds Active Scripts Valsartan (Valsartan) 80 Mg Tab, 160 MG PO DAILY@18 for 90 Days, TAB Hold if systolic BP < 110, angioedema Call PMD if angioedema of lips/tongue Prov:SULY CARDOZO MD 02/20/24 Gabapentin (Gabapentin) 300 Mg Cap, 1 CAP PO QHS PRN for MODERATE PAIN (4-6 PAIN SCALE), #90 CAP 5 Refills Prov:SULY CARDOZO MD 02/20/24 Loratadine (CLARITIN TABLET) 10 Mg Tb, 10 MG GT DAILY, #20 TAB Prov:SULY CARDOZO MD 01/20/22 Albuterol Sulfate (Ventolin) 2.5 Mg/0.5 Ml Nb, 2.5 MG NEB Q4HPRN PRN for 50 Days, #100 ML 1 Refill Prov:SULY CARDOZO MD 01/20/22 Reported Medications Multiple Vitamin (Multivitamins) Tab, 1 TAB PO DAILY, #90 TAB 3 Refills 05/29/24 Celecoxib (Celebrex) 200 Mg Cap, 200 MG PO HS, CAP 05/29/24 Betamethasone Dipropionate (Betamethasone Dipropionat) 0.05 % Oin, 1 APPLIC TD BID 05/29/24 Duloxetine HCl (Duloxetine HCl) 30 Mg Cap, 30 MG PO DAILY 05/29/24 Tizanidine Hydrochloride (Tizanidine Hcl) 4 Mg Tab, 4 MG PO BID 05/29/24 Oxybutynin Chloride (Oxybutynin Chloride) 5 Mg Tab, 10 MG PO DAILY 05/29/24 Oxycodone HCl (Oxycodone Hydrochloride) 20 Mg Tab, 20 MG PO Q8HPRN PRN for PAIN SCALE 7 THRU 10 05/29/24 Valsartan-Hydrochlorothiazide (Diovan Hct) 160 /12.5 Tab, 1 TAB PO DAILY 05/15/23 Meloxicam (Meloxicam) 15 Mg Tab, 1 TAB PO DAILY 05/15/23 Aripiprazole (Aripiprazole) 10 Mg Tab, 1 TAB PO DAILY 05/15/23 Metformin Hydrochloride (Metformin Hcl Er) 750 Mg Tab, 1 TAB PO DAILY, #90 TAB 3 Refills 05/12/23 Rosuvastatin Calcium (Crestor) 20 Mg Tab, 1 TAB PO DAILY for LOWER BAD CHOLESTEROL, #30 TAB 5 Refills 04/03/22 Pantoprazole Sodium Sesquihydr (Pantoprazole Sodium) 40 Mg Tab, 40 MG PO QAM for GERD, TAB PRIOR TO BREAKFAST PER PT SHOULD STILL BE ON THIS MEDICATION EVEN THOUGH NO P/UP HISTORY IN EXTERNAL MED 11/21/21 Ezetimibe (Zetia) 10 Mg Tab, 1 TAB PO DAILY for High Cholesterol, #30 TAB 5 Refills 11/21/21 Empagliflozin (Jardiance) 10 Mg Tab, 10 MG PO DAILY for DIABETES, TAB 11/21/21 Escitalopram Oxalate (ESCITALOPRAM OXALATE) 20 Mg Tab, 1 TAB PO DAILY for DEPRESSION, #30 TAB 5 Refills 11/21/21 Metoprolol Succinate (Metoprolol Succinate Er) 50 Mg Tab, 50 MG PO DAILY for BLOOD PRESSURE NEW DISCHARGE MED IS METOPROLOL SUCC ER 25 MG BID, BUT PATIENT HAS NOT STARTED TAKING YET AND WOULD LIKE TO BE KEPT ON 50 MG DAILY 07/12/20 Mupirocin Calcium (Topical) (MUPIROCIN) 2 % Cre, 1 APPLIC TOP BID for Skin infection PER PATIENT'S HOME MED LIST: APPLY TOPICALLY TO OPEN WOUNDS BID PT USES 2 GRAMS BID 01/18/20 Docusate Sodium (DOCQLACE) 100 Mg Cap, 100 MG PO DAILY PRN for FOR CONSTIPATION, CAP 06/04/18 Albuterol Sulfate (VENTOLIN MDI) 90 Mcg Ih, 2 PUFF IN Q6HPRN PRN for SHORTNESS OF BREATH EXTERNAL MED HX SAYS Q4HR. PATIENT USES Q6HR PRN 06/04/18 Clopidogrel Bisulfate (CLOPIDOGREL) 75 Mg Tab, 75 MG PO DAILY 06/04/18 Home Meds Home medications reviewed. Current Medications Current Medications Medications (Trade) Dose Ordered Sig/Kitty Route PRN Reason Start Time Stop Time Status Last Admin Sodium Chloride 1,000 ml @ 50 mls/hr Q20H IV 05/31/24 17:30 05/31/24 17:30 DC Potassium Chloride 100 ml @ 50 mls/hr Q12HR IV 05/31/24 17:30 06/01/24 12:00 05/31/24 22:01 Sodium Chloride 1,000 ml @ 80 mls/hr [id number] IV 05/31/24 17:30 06/01/24 05:44 Review of Systems Constitutional: No symptom reported Ears, Nose, & Throat: No symptom reported Eyes: No symptom reported Neurological: No symptoms reported Pulmonary/Respiratory: SOB, productive cough Cardiovascular: Chest pain Gastrointestinal: No symptom reported Genitourinary: No symptom reported Musculoskeletal: No symptom reported Skin: No symptom reported Psychiatric: No symptom reported Endocrine: No symptom reported Hemotologic/Lymphatic: No symptom reported Vital Signs Vital Signs Date Time Temp Pulse Resp B/P (MAP) Pulse Ox O2 Delivery O2 Flow Rate FiO2 06/01/24 08:18 58 16 154/75 06/01/24 08:00 Room Air* 0 21 06/01/24 06:23 97 06/01/24 05:00 97.9 97.9 Physical Exam General Appearance: Cooperative. Well developed. Obese. In no acute distress Head Exam: Normal inspection Neck Exam: Normal inspection. Non-tender. Normal alignment Pulmonary/Respiratory: Chest non-tender. Clear bilateral breath sounds Cardiovascular/Chest: Regular rate and rhythm. S1, S2. Sinus rhythm with ST depression to lateral leads and V4. No murmurs. No JVD. Peripheral Pulses: 2+ Radial (R). 2+ Radial (L). 2+ Pedal (R). 2+ Pedal (L) Abdominal Exam: Normal bowel sounds. Soft. Nontender. No hepatospenomegaly. No masses Ankle Exam: Negative ankle edema Lower extremities: Negative lower extremity edema Neuro/Mental Status: A&O x4. Coherent Thoughts/Psych: Normal thought pattern. Appropriate mood and affect. Good judgement and insight Appearance: In no acute distress Skin Exam: Hyperpigmentation present. Warm. Dry Labs/Diagnostic Data Labs Test 05/31/24 21:09 05/31/24 21:08 05/31/24 06:11 05/29/24 22:57 Range/Units Troponin I High Sensitivity 20 </=34 ng/L POC Glucose 108 H 70-106 mg/dl Sodium Level 141 136-145 mmol/L Potassium Level 3.6 3.5-5.1 mmol/L Chloride Level 110 H 98-107 mmol/L Carbon Dioxide Level 26 20-31 mmol/L Anion Gap 5 5-15 Blood Urea Nitrogen 8 L 9-23 mg/dL Creatinine 0.71 0.550-1.02 mg/dL Glomerular Filtration Rate Calc 94 >90 mL/min BUN/Creatinine Ratio 11.3 10.0-20.0 Serum Glucose 134 H 74-106 mg/dL Hemoglobin A1c 6.5 H <5.7 % A1C Calcium Level 9.1 8.7-10.4 mg/dL Phosphorus Level 2.5 2.4-5.1 mg/dL Magnesium Level 1.8 1.6-2.6 mg/dL Total Bilirubin 0.2 0.2-1.0 mg/dL Aspartate Amino Transferase (AST) 10 L 13-40 U/L Alanine Aminotransferase (ALT) 11 7-40 U/L Alkaline Phosphatase 86 46-116 U/L Total Protein 6.3 5.7-8.2 g/dL Albumin 3.8 3.2-4.8 g/dL Triglycerides Level 101 < 150 mg/dL Cholesterol Level 138 < 200 mg/dL LDL Cholesterol 87 < 100 mg/dL HDL Cholesterol 37 L 40-59 mg/dL Urine Color Light-yellow Yellow Urine Clarity Clear Clear Urine pH 5.0 5.0-9.0 Urine Specific [place] 1.009 1.001-1.035 Urine Protein Negative Negative Urine Ketones Negative Negative Urine Blood Negative Negative /uL Urine Nitrite Negative Negative Urine Bilirubin Negative Negative Urine Urobilinogen Normal Negative mg/dL Urine Leukocyte Esterase 2+ Negative /uL Urine RBC 2 0 - 4 /hpf Urine Microscopic WBC 48 H 0-5 /HPF Urine Squamous Epithelial Cells Few <5 /hpf Urine Bacteria None seen None Seen /hpf Urine Yeast (Budding) Many None Seen /hpf Urine Glucose 3+ H Normal mg/dL Test 05/29/24 18:47 Range/Units White Blood Count 8.0 4.4-10.8 10^3/uL Red Blood Count 4.74 4.0-5.20 10^6/uL Hemoglobin 12.5 12.2-16.2 g/dL Hematocrit 38.1 36.0-46.0 % Mean Corpuscular Volume 80.4 80.0-100.0 fL Mean Corpuscular Hemoglobin 26.3 L 28.0-32.0 pg Mean Corpuscular Hemoglobin Concent 32.7 32.0-36.0 g/dL Red Cell Distribution Width 15.5 H 11.8-14.3 % Platelet Count 320 140-450 10^3/uL Mean Platelet Volume 7.7 6.9-10.8 fL Neutrophils (%) (Auto) 45.9 37.0-80.0 % Lymphocytes (%) (Auto) 37.3 10.0-50.0 % Monocytes (%) (Auto) 12.1 H 0.0-12.0 % Eosinophils (%) (Auto) 3.5 0.0-7.0 % Basophils (%) (Auto) 1.2 0.0-2.0 % Neutrophils # (Auto) 3.7 1.6-8.6 10 ^3/uL Lymphocytes # (Auto) 3.0 0.4-5.4 10 ^3/uL Monocytes # (Auto) 1.0 0-1.3 10 ^3/uL Eosinophils # (Auto) 0.3 0-0.8 10 ^3/uL Basophils # (Auto) 0.1 0-0.2 10 ^3/uL Nucleated Red Blood Cells 0.1 % Microbiology Date/Time Source Procedure Growth Status 05/29/24 22:57 Voided Urine Urine Culture - Preliminary Resulted 05/29/24 19:12 Nose MRSA Screen - Final Complete 05/29/24 18:47 Blood Blood Culture - Preliminary NO GROWTH AFTER 48 HOURS OF INCUBATION. Resulted Assessment COPD exacerbation Coronary artery disease status post PTCA to the RCA x1 RACHELE (2009) Hypertension Dyslipidemia Fht-ypnatgz-zswhlfdri diabetes mellitus Obesity Plan/Recommendation (Dr. Bray) Case discussed in full detail with Dr. Bray. The patient presents with non-c ardiac chest pain and negative troponin levels. She underwent a recent transthoracic echocardiogram and cardiolite stress test at [facility] on 05/26/2024. Nuclear scan revealed no evidence of ischemia with optimal left ventricular function. Continue follow-up with Dr. Alvarado as scheduled or sooner if deemed to be necessary. In the meantime, continue Plavix therapy and lipid- lowering agent. There is no further cardiac work-up indicated at this time. Kindly call if in need to re-consult. Thank you for allowing us to participate in this patient's care. Please call if you have any questions or concerns. This medical document was created using an electronic medical record system with voice recognition software and computerized dictation system. Although this document has been carefully reviewed, there might still be some phonetic and typographical errors. Occasional wrong-word or ``sound-alike substitutions may have occurred due to the inherent limitations of voice recognition software. These areas are purely typographical due to imperfections of the software programs and do not reflect any compromise in the patient's medical care. Please read the chart carefully and recognize, using context, where these substitutions have occurred. Plan discussed with: Patient, Other NYHA Physical activity limitations: NA Date of Service: Jun 01, 2024 Billing Provider: LIZ VAZQUEZ Cardiology Common Codes: [id number] INP/OBS CARE (High) PAULA BRAY MD 06/01/24 1625: Family History: Cardiovascular disease G8 FATHER, Onset: - Diabetes mellitus FHx: cancer G8 MOTHER, Onset: - Hypertension G8 MOTHER, Onset: - G8 FATHER, Onset: - Allergies: Coded Allergies: Benzalkonium Chloride (Verified Allergy, Unknown, 07/08/18) Dupilumab (Verified Allergy, Unknown, 05/30/24) Lisinopril (Verified Allergy, Unknown, 07/08/18) Sorbitan (Verified Allergy, Unknown, 05/30/24) Home Meds Active Scripts Valsartan (Valsartan) 80 Mg Tab, 160 MG PO DAILY@18 for 90 Days, TAB Hold if systolic BP < 110, angioedema Call PMD if angioedema of lips/tongue Prov:SULY CARDOZO MD 02/20/24 Gabapentin (Gabapentin) 300 Mg Cap, 1 CAP PO QHS PRN for MODERATE PAIN (4-6 PAIN SCALE), #90 CAP 5 Refills Prov:SULY CARDOZO MD 02/20/24 Loratadine (CLARITIN TABLET) 10 Mg Tb, 10 MG GT DAILY, #20 TAB Prov:SULY CARDOZO MD 01/20/22 Albuterol Sulfate (Ventolin) 2.5 Mg/0.5 Ml Nb, 2.5 MG NEB Q4HPRN PRN for 50 Days, #100 ML 1 Refill Prov:SULY CARDOZO MD 01/20/22 Reported Medications Multiple Vitamin (Multivitamins) Tab, 1 TAB PO DAILY, #90 TAB 3 Refills 05/29/24 Celecoxib (Celebrex) 200 Mg Cap, 200 MG PO HS, CAP 05/29/24 Betamethasone Dipropionate (Betamethasone Dipropionat) 0.05 % Oin, 1 APPLIC TD BID 05/29/24 Duloxetine HCl (Duloxetine HCl) 30 Mg Cap, 30 MG PO DAILY 05/29/24 Tizanidine Hydrochloride (Tizanidine Hcl) 4 Mg Tab, 4 MG PO BID 05/29/24 Oxybutynin Chloride (Oxybutynin Chloride) 5 Mg Tab, 10 MG PO DAILY 05/29/24 Oxycodone HCl (Oxycodone Hydrochloride) 20 Mg Tab, 20 MG PO Q8HPRN PRN for PAIN SCALE 7 THRU 10 05/29/24 Valsartan-Hydrochlorothiazide (Diovan Hct) 160 /12.5 Tab, 1 TAB PO DAILY 05/15/23 Meloxicam (Meloxicam) 15 Mg Tab, 1 TAB PO DAILY 05/15/23 Aripiprazole (Aripiprazole) 10 Mg Tab, 1 TAB PO DAILY 05/15/23 Metformin Hydrochloride (Metformin Hcl Er) 750 Mg Tab, 1 TAB PO DAILY, #90 TAB 3 Refills 05/12/23 Rosuvastatin Calcium (Crestor) 20 Mg Tab, 1 TAB PO DAILY for LOWER BAD CHOLESTEROL, #30 TAB 5 Refills 04/03/22 Pantoprazole Sodium Sesquihydr (Pantoprazole Sodium) 40 Mg Tab, 40 MG PO QAM for GERD, TAB PRIOR TO BREAKFAST PER PT SHOULD STILL BE ON THIS MEDICATION EVEN THOUGH NO P/UP HISTORY IN EXTERNAL MED 11/21/21 Ezetimibe (Zetia) 10 Mg Tab, 1 TAB PO DAILY for High Cholesterol, #30 TAB 5 Refills 11/21/21 Empagliflozin (Jardiance) 10 Mg Tab, 10 MG PO DAILY for DIABETES, TAB 11/21/21 Escitalopram Oxalate (ESCITALOPRAM OXALATE) 20 Mg Tab, 1 TAB PO DAILY for DEPRESSION, #30 TAB 5 Refills 11/21/21 Metoprolol Succinate (Metoprolol Succinate Er) 50 Mg Tab, 50 MG PO DAILY for BLOOD PRESSURE NEW DISCHARGE MED IS METOPROLOL SUCC ER 25 MG BID, BUT PATIENT HAS NOT STARTED TAKING YET AND WOULD LIKE TO BE KEPT ON 50 MG DAILY 07/12/20 Mupirocin Calcium (Topical) (MUPIROCIN) 2 % Cre, 1 APPLIC TOP BID for Skin infection PER PATIENT'S HOME MED LIST: APPLY TOPICALLY TO OPEN WOUNDS BID PT USES 2 GRAMS BID 01/18/20 Docusate Sodium (DOCQLACE) 100 Mg Cap, 100 MG PO DAILY PRN for FOR CONSTIPATION, CAP 06/04/18 Albuterol Sulfate (VENTNEERAJ SINGLETARY) 90 Mcg Ih, 2 PUFF IN Q6HPRN PRN for SHORTNESS OF BREATH EXTERNAL MED HX SAYS Q4HR. PATIENT USES Q6HR PRN 06/04/18 Clopidogrel Bisulfate (CLOPIDOGREL) 75 Mg Tab, 75 MG PO DAILY 06/04/18 Plan/Recommendation stress report personally reviewed by myself pt has appt to see her cards can fu with him for fu cont her current meds can add isosorbide on outpt Plan discussed with: Patient LIZ VAZQUEZ Jun 01, 2024 09:29 PAULA BRAY MD Jun 01, 2024 16:25
[2024-06-01] MEDS: cloNIDine HCL 0.1 MG TAB PO PRN (10:57)
[2024-06-01] MEDS ORDERED: ONDANSETRON HCL 4 MG/2 ML VIAL IV PRN (15:30)
[2024-06-01] MEDS: HYDROmorphone HCL 2 MG/ML VL/or syr IV PRN (18:16)
[2024-06-01] MEDS: PANTOPRAZOLE 40 MG TAB PO SCH (21:28)
[2024-06-01] MEDS: ATORVASTATIN 20 MG TAB PO SCH (21:29)
--- NOTE | 2024-06-01 23:58 | DVHPN2 ---
Progress Note - Dictate Date Seen: Jun 01, 2024 Has the PT tested + for MRSA If YES, has PT been informed?: No Medical Necessity Reason Pt with a Central, PICC or Fol: No Medical Necessity Reason Evaluation of the chest pain New symptoms of abdominal pain nausea Subjective The patient reported symptoms of chest pain last night Her serial EKGs enzymes are unremarkable for acute [place] Patient is seen by EVS MANAGER of Dr. Rios Patient is recommended medical management This afternoon patient reported symptoms of abdominal pains nausea Recommended patient to receive combination of Protonix Maalox Recommended patient to receive Zofran if Protonix pains Recommended tapering of Toradol Continued patient on IV antibiotics and bronchodilators med neb treatments Overnight events are reviewed through medical chart and case discussion with patient's assigned RN while making rounds on patient on the day of service vital signs Vital Sign Date Time Temp Pulse Resp B/P (MAP) Pulse Ox O2 Delivery O2 Flow Rate FiO2 06/01/24 20:43 97.9 58 17 121/54 (76) 98 97.9 06/01/24 20:00 Room Air* 0 21 Total Intake and Output 05/31/24 05/31/24 06/01/24 15:00 23:00 07:00 Intake Total 150 ml 1200 ml 1200 ml Output Total 1700 ml Balance 150 ml 1200 ml -500 ml medications Current Medications Medications Dose Ordered Sig/Kitty Route Start Time Stop Time Status Last Admin Dose Admin Nitroglycerin 0.4 mg Q5MINP PRN SL 05/29/24 17:30 Morphine Sulfate 2 mg Q30M PRN IV 05/29/24 17:30 Albuterol 2.5 mg Q4HPRN PRN NEB 05/29/24 17:30 06/01/24 11:58 2.5 MG Clopidogrel Bisulfate 75 mg DAILY@1400 PO 05/30/24 14:00 Docusate Sodium 100 mg DAILY PRN PO 05/29/24 17:30 Empaglifozin 10 mg DAILY PO 05/30/24 10:00 EZETIMIBE 10 mg DAILY PO 05/30/24 10:00 06/01/24 10:47 10 MG Gabapentin 300 mg BID PRN PO 05/29/24 17:30 05/30/24 21:16 300 MG Loratadine 10 mg DAILY PO 05/30/24 10:00 06/01/24 10:47 10 MG Metoprolol Succinate 50 mg DAILY PO 05/30/24 10:00 06/01/24 10:49 50 MG Valsartan 160 mg DAILY@1800 PO 05/29/24 18:00 06/01/24 18:11 160 MG Patient Own Medication 1 tab DAILY PO 05/30/24 10:00 Diagnostic Test (Pha) 1 strip ACHS 05/29/24 22:00 06/01/24 21:34 1 STRIP Insulin Human Lispro AC SC 05/30/24 07:00 05/31/24 17:26 300 UNITS Insulin Human Lispro HS SC 05/29/24 22:00 05/30/24 21:47 4 UNITS Hydromorphone HCl 0.8 mg Q4HP PRN IV 05/29/24 17:30 06/01/24 08:18 0.8 MG Clonidine HCl 0.3 mg Q6HPRN PRN PO 05/29/24 17:30 Clonidine HCl 0.2 mg Q6H PRN PO 05/29/24 17:30 Clonidine HCl 0.1 mg Q6HP PRN PO 05/29/24 17:30 06/01/24 10:57 0.1 MG Ceftriaxone Sodium 50 ml @ 100 mls/hr DAILY@09 IV 05/29/24 17:48 06/01/24 10:46 100 MLS/HR Ketorolac Tromethamine 30 mg Q8HPRN PRN IV 05/30/24 00:00 06/04/24 00:00 06/01/24 21:30 30 MG Hydromorphone HCl 0.6 mg Q4HP PRN IV 05/29/24 18:15 06/01/24 18:16 0.6 MG Guaifenesin/ Codeine Phosphate 10 ml Q6HR PRN PO 05/30/24 04:10 05/31/24 09:23 10 ML Sodium Chloride 1,000 ml @ 80 mls/hr [id number] IV 05/31/24 17:30 06/01/24 05:44 80 MLS/HR Atorvastatin Calcium 40 mg HS PO 06/01/24 22:00 06/01/24 21:29 40 MG Pantoprazole Sodium 40 mg BID PO 06/01/24 22:00 06/01/24 21:28 40 MG Ondansetron HCl 4 mg Q6HPRN PRN IV 06/01/24 15:30 objective Gen. appearance: Well-developed obese built middle-aged -[place] female appears to be hypovolemic, chest congestion HEENT Head normocephalic nontraumatic, Eyes-eyeball shrunken +1 Eyes EOMI, PERRLA, conjunctiva -pale, sclera nonicteric ENT-mild nasal congestion, no hyperemia of TM, Tongue/mucous membranes dry NECK: Supple, trachea R off midline , carotid upstroke +2, JVD 1 cm, No thyroid or lymph node enlargement, no use of accessory muscles Q-klbng-ibcevrcswk muscle tenderness present, ROM at C-spine full CHEST: Emphysematous, Hypoventilation at bilateral bases RS: Clear breath sounds at anterior lung [place], reduced at bases Scattered late inspiratory wheezes posterior bases CVS: PMI-2 cm lateral to L MCL line in the sixth ICS, S1-S2/A1-A2 normal sinus accentuated no gallop no murmur GI: Abdomen soft, obese +3, bowel sounds normoactive No focal tenderness, no mass or hernia, no hepatosplenomegaly Genitourinary: Deferred Back: CVA tenderness minimal, bilateral lumbosacral spinal muscle tenderness present Bilateral suprascapular point tenderness present, Straight leg raising test negative EXTs: Wounds-multiple scabs Pulses:Distal pulses +2, no rash, no edema, capillary refill instant, Feels peripherally warm Joints: Reduced ROM at bilateral hips and knee Neuro: Awake alert oriented 3, affect depressed cognitive intact DTR +2, No focal motor deficit, changes of diabetic peripheral neuropathy, gait steady laboratory and microbiology Laboratory Tests 05/31/24 06:11 05/29/24 18:47 Test 05/31/24 06:11 Range/Units Serum Glucose 134 H 74-106 mg/dL Problem List Acute chest pain-............................... Improved Acute [place]-ruled out Acute epigastric pains.......................... Improving From acute gastritis Acute exacerbation of COPD.................. Improving Acute asthmatic bronchitis.................... Improving Failed to oral antibiotics Hypovolemia...................................... corrected Acute flare-up of fibromyalgia................ Improving 2' Diagnosis/Comorbidities Exogenous obesity in adult with current BMI > 35-39 kg/m2 Assessment/Plan Comprehensive clinical assessment 1) Acute chest pain -acute [place] ruled out Status: Acute Present at the time of admission: no Problem specific AP: * Noted improvement in symptoms chest pains-no acute [place] on 12 lead EKG * 12 lead EKG-no acute ischemia, inverted T-waves due to LV strain from hypertension * Patient is seen by FRONT END ASSISTANT associate of Dr. Rios * Recommended medical management based on unremarkable recent most Lexiscan stress EKG test done last week at [facility] Last coronary angiogram-unremarkable for occlusive disease as of 11/2021 2) acute abdominal pain with nausea Acute gastritis Status: Acute Present at the time of admission: no Problem specific AP: * Reported symptoms of epigastric abdominal pains * Recommended patient to receive combination of Protonix and Maalox * Taper the dose of IV Toradol 3) Acute asthmatic bronchitis Acute exacerbation of COPD Status: Acute Present at the time of admission: Yes Problem specific AP: - noted improvement in current symptoms of-late inspiratory wheezes at bilateral bases Known history of COPD from passive exposure to smoking * Seems to be responding IV Rocephin and bronchodilators med neb (4) Acute flare-up of fibromyalgia Triggered by lower respiratory infection Status: Acute on chronic Assessment & Plan: Known history of fibromyalgia * Acute flare up triggered by viral upper respiratory infection * Reports severe generalized aches and pains including chest upper and Lower back -seems to be responding to IV Toradol and IV Dilaudid * Being tapered off IV Dilaudid and Toradol (5) Hypovolemia Status: Acute Assessment & Plan: The patient is noted to have correction in state of hypovolemia on physical exam * Reduce rate of IV hypotonic saline infusion (6) Hypercholesterolemia Status: Chronic Assessment & Plan: Known history of hypercholesterolemia Continued patient to receive low-cholesterol diet and Lipitor Ecotrin. Side effects of medications are discussed with the patient (7) Well controlled hypertension Status: Chronic Assessment & Plan: Known history of hypertension for long time Complicated by severe concentric LVH on 2D echo-09/11/2020 Currently on beta-blockers and ARBs (8) Well controlled diabetes mellitus Status: Chronic Assessment & Plan: Her diabetes remains under fair control. Her hemoglobin A1c runs between 6.5 to 7% a. Obesity and insulin resistance b. Noncompliance with diet and medications c stress from acute [place], UTI Discussed with patient about all pertinent etiologic causes of uncontrolled NIDDM Recommended Accu-Chek q.a.c. and HS Recommended oral hypoglycemics and Humalog to sliding scale Full diabetic education is given to patient a, 1800-calorie ADA diet b. Combination of basal and short acting insulin therapy c. Intentional weight loss of 75 lbs is through diet and exercise d. Monitoring hemoglobin A1c,, CMP every 3 months lipid panel every 6 months 24-hour urine check for microalbuminuria on annual basis e. Recommended annual physical exam by dentist, sheather and eye weight f. Report to podiatry for any sign of inflammation or injury to foot (9) Morbid obesity in adult with current BMI >35-39 Kg/m Status: Chronic Assessment & Plan Her current BMI is high at 38 kg/m reflecting Her current body weight exceeds by 75 LBS to ideal body weight Dietary recommendations reviewed with the patient Informed patient about complications of obesity which includes but not limited to a. Hypoxia, cardiac arrhythmias, pulmonary embolism, embolic CVA, sudden cardiac The patient is recommended weight loss of 75 pounds through Low-carb low calorie 1800-calorie diet and aerobic exercises as tolerated Recommended patient to follow a. daily weight, b. ADA 1800-calorie diet-40% calories from breakfast 30% calories from lunch and dinner each, avoid carbonated soda c. Recommended aerobic exercises like walking 1-5 miles per day, riding on a stationary bike for 1-2 hours Treatment plans as of today Continue hospital stay at telemetry floor Continue patient on NTG, morphine Continue patient on Lipitor and Plavix Continue metoprolol 50 mg PO twice daily Add ad Protonix and Maalox Taper dose of IV Toradol Continue IV Rocephin and bronchodilator Med-Neb treatment Careful IV hydration Accu-Chek q.a.c. and HS Humalog sliding scale VTE the precautions Local application of Bactroban over bilateral upper extremity patient and her have been well informed by me about 1. Admission diagnosis, treatment plans, side effects of medications, course of the disease and fair prognosis 2. Modification of risk factors including intentional weight loss for obesity, tight control of diabetes and hypertension 3. All patient's and concerns raised by patient or family are satisfactorily addressed by me Prognosis Fair Dietary Evaluation Review Recommendations by RD: Decrease Calorie Intake Comments: Continue current plan of care Expected Outcomes/Goals: Pt will meet >75% estimated needs Fu 3-5 days Interpretation of weight loss: up to 10% in 6 months Plan discussed with: Patient Total Time (mins): 45 SULY CARDOZO MD Jun 01, 2024 23:57
[2024-06-02] VITALS (10 sets, daily range): BP systolic 130–166; BP diastolic 48–79; PULSE 51–66; RESP 16–20; TEMP 97.6–98.3; O2SAT 96–100
[2024-06-02] MEDS: SOD CHL 0.45% 1,000 ML IV SCH (02:04)
[2024-06-02] MEDS: KETOROLAC TROMETH 30 MG/ML 1ML VIAL IV PRN (03:21)
[2024-06-02] MEDS: HYDROmorphone HCL 2 MG/ML VL/or syr IV PRN ×2 (04:46→10:09)
[2024-06-02] MEDS ORDERED: hydrALAZINE HCL 20 MG/ML VL IV PRN (11:45)
[2024-06-02] MEDS: hydrALAZINE HCL 20 MG/ML VL IV ONE (13:33)
--- NOTE | 2024-06-04 05:16 | DVHDS2 ---
Discharge Summary Date of Admission May 29, 2024 at 16:20 Date of Discharge: Jun 02, 2024 Admitting Diagnosis Acute exacerbation of COPD Acute asthmatic bronchitis Failed to oral antibiotics Hypovolemia Acute flare-up of fibromyalgia Wounds: Multiple scabs over bilateral upper extremities Labs/Diagnostic Data: Laboratory Results Test 06/02/24 11:27 05/31/24 21:09 05/31/24 06:11 05/29/24 22:57 POC Glucose 116 mg/dl (70-106) Troponin I High Sensitivity 20 ng/L (</=34) Sodium Level 141 mmol/L (136-145) Potassium Level 3.6 mmol/L (3.5-5.1) Chloride Level 110 mmol/L (98-107) Carbon Dioxide Level 26 mmol/L (20-31) Anion Gap 5 (5-15) Blood Urea Nitrogen 8 mg/dL (9-23) Creatinine 0.71 mg/dL (0.550-1.02) Glomerular Filtration Rate Calc 94 mL/min (>90) BUN/Creatinine Ratio 11.3 (10.0-20.0) Serum Glucose 134 mg/dL (74-106) Hemoglobin A1c 6.5 % A1C (<5.7) Calcium Level 9.1 mg/dL (8.7-10.4) Phosphorus Level 2.5 mg/dL (2.4-5.1) Magnesium Level 1.8 mg/dL (1.6-2.6) Total Bilirubin 0.2 mg/dL (0.2-1.0) Aspartate Amino Transferase (AST) 10 U/L (13-40) Alanine Aminotransferase (ALT) 11 U/L (7-40) Alkaline Phosphatase 86 U/L (46-116) Total Protein 6.3 g/dL (5.7-8.2) Albumin 3.8 g/dL (3.2-4.8) Triglycerides Level 101 mg/dL (< 150) Cholesterol Level 138 mg/dL (< 200) LDL Cholesterol 87 mg/dL (< 100) HDL Cholesterol 37 mg/dL (40-59) Urine Color Light-yellow (Yellow) Urine Clarity Clear (Clear) Urine pH 5.0 (5.0-9.0) Urine Specific [place] 1.009 (1.001-1.035) Urine Protein Negative (Negative) Urine Ketones Negative (Negative) Urine Blood Negative /uL (Negative) Urine Nitrite Negative (Negative) Urine Bilirubin Negative (Negative) Urine Urobilinogen Normal mg/dL (Negative) Urine Leukocyte Esterase 2+ /uL (Negative) Urine RBC 2 /hpf (0 - 4) Urine Microscopic WBC 48 /HPF (0-5) Urine Squamous Epithelial Cells Few /hpf (<5) Urine Bacteria None seen /hpf (None Seen) Urine Yeast (Budding) Many /hpf (None Seen) Urine Glucose 3+ mg/dL (Normal) Test 05/29/24 18:47 White Blood Count 8.0 10^3/uL (4.4-10.8) Red Blood Count 4.74 10^6/uL (4.0-5.20) Hemoglobin 12.5 g/dL (12.2-16.2) Hematocrit 38.1 % (36.0-46.0) Mean Corpuscular Volume 80.4 fL (80.0-100.0) Mean Corpuscular Hemoglobin 26.3 pg (28.0-32.0) Mean Corpuscular Hemoglobin Concent 32.7 g/dL (32.0-36.0) Red Cell Distribution Width 15.5 % (11.8-14.3) Platelet Count 320 10^3/uL (140-450) Mean Platelet Volume 7.7 fL (6.9-10.8) Neutrophils (%) (Auto) 45.9 % (37.0-80.0) Lymphocytes (%) (Auto) 37.3 % (10.0-50.0) Monocytes (%) (Auto) 12.1 % (0.0-12.0) Eosinophils (%) (Auto) 3.5 % (0.0-7.0) Basophils (%) (Auto) 1.2 % (0.0-2.0) Neutrophils # (Auto) 3.7 10 ^3/uL (1.6-8.6) Lymphocytes # (Auto) 3.0 10 ^3/uL (0.4-5.4) Monocytes # (Auto) 1.0 10 ^3/uL (0-1.3) Eosinophils # (Auto) 0.3 10 ^3/uL (0-0.8) Basophils # (Auto) 0.1 10 ^3/uL (0-0.2) Nucleated Red Blood Cells 0.1 % Other Laboratory Tests 05/31/24 06:11 05/29/24 18:47 Brief Hx & Hospital Course: History of Present Illness Patient contact: 05/29/2024 9:00 p.m. 63 year-old middle-aged -Malaysian female with a known history of hypertension, NIDDM, hypercholesterolemia, obesity and CAD status post PTCA 2007 as well as known history of COPD, fibromyalgia is directly admitted for further eval and management of progressive worsening of URI followed by chest congestion, productive cough shortness of breaths over past five days despite her receiving IV and oral antibiotics as outpatient Accompanying to these, patient also has symptoms of generalized aches and pains all over body to a point that she is not able to be up and around Her current symptoms become worse this morning, attended by me at the office this afternoon and recommended patient to receive hospitalization Onset/duration: x 5 days-worse this morning Severity: severe five to 7/10 Location: All over chest Characteristic: Achy pains Referral: L shoulder Associated symptoms: Chest congestion shortness of breath wheezing Aggravated by: Deep inspiration, cough #1 Alleviated by: Bronchodilator Med-Neb yet dialysis calvarial MRI is treatment Risk factors: COPD, obesity The patient is admitted to medical floor for further eval and management of acute exacerbation of asthmatic bronchitis/COPD Hospital Course Based on patient given history physical findings he was admitted to medical floor with telemetry. She was treated for medical conditions as listed below Comprehensive clinical assessment 1) Acute asthmatic bronchitis Acute exacerbation of COPD Status: Acute Present at the time of admission: Yes Problem specific AP: - Based on history and physical exam-late inspiratory wheezes at bilateral bases Known history of COPD from passive exposure to smoking in past * Responded to broad-spectrum IV Rocephin and bronchodilator Med-Neb treatments * Patient was symptom free at the time of discharge (2) Acute flare-up of fibromyalgia Triggered by lower respiratory infection Status: Acute on chronic Assessment & Plan: Known history of fibromyalgia * Acute flare up triggered by viral upper respiratory infection * Reports severe generalized aches and pains including chest upper and Lower back * Responded to IV nonsteroidals, pain management * The patient was symptom free at the time of discharge * (3)Acute chest pain -acute [place] ruled out Status: Acute on chronic Assessment & Plan: * Treated on a line of anginal pains * 12 lead EKG was unremarkable for acute ischemia but LV strain * Refer patient to Dr. Rios, Cardiology * Patient was seen by MEDICAL OFFICE SCHEDULER who had case discussion with Dr. Rios and recommendation was medical management based on the negative Lexiscan Cardiolite stress EKG test done last week at [facility] as well as Coronary angiogram reflecting nonocclusive CAD as of 11/2021 and patent stent in RCA * Patient was symptom-free for chest pain at the time of discharge (4) Acute epigastric abdominal pains * Acute gastritis Status: Acute on chronic Assessment & Plan: * Patient reported symptoms of acute epigastric abdominal pains at later part of hospital stay By exam she was tender at epigastric area There was no sign of occult GI bleeding * She was treated with combination of Protonix and Maalox while tapering her off nonsteroidals * She was symptom-free for abdominal pains prior to discharge (5) Hypovolemia Status: Acute Assessment & Plan: The patient is noted to have hypovolemia on physical exam * Responded to IV hypotonic saline with potassium supplement riders * Her state of hypovolemia was corrected prior to discharge (6) Hypercholesterolemia Status: Chronic Assessment & Plan: Known history of hypercholesterolemia Recommended patient to receive low-cholesterol diet and Lipitor Ecotrin. Side effects of medications are discussed with the patient (7) Uncontrolled hypertension Status: Chronic Assessment & Plan: Known history of hypertension for long time Complicated by severe concentric LVH on 2D echo-09/11/2020 Responded to beta-blockers and ARBs Her blood pressure improved to 120s/70 (8) Well controlled diabetes mellitus Status: Chronic Assessment & Plan: Her diabetes remains under fair control. Her hemoglobin A1c runs between 6.5 % a. Obesity and insulin resistance b. Noncompliance with diet and medications c stress from acute [place], UTI Discussed with patient about all pertinent etiologic causes of uncontrolled NIDDM Full diabetic education is given to patient a, 1800-calorie ADA diet b. Combination of basal and short acting insulin therapy c. Intentional weight loss of 75 lbs is through diet and exercise d. Monitoring hemoglobin A1c,, CMP every 3 months lipid panel every 6 months 24-hour urine check for microalbuminuria on annual basis e. Recommended annual physical exam by dentist, junior php developer and eye doctor f. Report to podiatry for any sign of inflammation or injury to foot (9) Morbid obesity in adult with current BMI >35-39 Kg/m Status: Chronic Assessment & Plan Her current BMI is high at 38 kg/m reflecting Her current body weight exceeds by 75 LBS to ideal body weight Informed patient about complications of obesity which includes but not limited to a. Hypoxia, cardiac arrhythmias, pulmonary embolism, embolic CVA, sudden cardiac The patient is recommended weight loss of 75 pounds through Low-carb low calorie 1800-calorie diet and aerobic exercises as tolerated Recommended patient to follow a. daily weight, b. ADA 1800-calorie diet-40% calories from breakfast 30% calories from lunch and dinner each, avoid carbonated soda c. Recommended aerobic exercises like walking 1-5 miles per day, riding on a stationary bike for 1-2 hours Consults/Reason for consult Dr. Rios, cardiology for acute chest pain Condition at Discharge: Good Final Diagnosis/Problems List 1. Acute asthmatic bronchitis Complicated by Acute exacerbation of COPD 2. Acute flare-up of fibromyalgia 3. Failed to outpatient oral antibiotics and pain management 4. Acute chest pain-acute [place] ruled out 5. Acute epigastric pains- from acute gastritis From inadvertent effect of nonsteroidals 6. Hypovolemia Secondary Diagnosis: 1. Hypercholesterolemia 2. Fairly well-controlled NIDDM and hypertension 3. Exogenous obesity with current BMI > 35-40 kg per m2 Discharge Disposition: Home Discharge Instruct/Medications Diet: Consistent carbohydrate, Cardiac 2g Na,low cholest Diet comment: 2000 calorie low carb low-cholesterol diet Activity: Light activity Follow Up/Referral: Dr. Melvin Mckay 06/08/2024 Dr. Bull in one week Medications: Refer to discharge medication rec 60 Discharge Statement: "Patient was advised to return to the ER or call 911 if any headaches, dizziness, shortness of breath, chest pain, abdominal pain, bleeding, fevers, or worsening of medical condition. Patient was counseled about treatment plan, medications, possible side effects, patientverbalized understanding. All questions were answered to the best of my ability. This discharge took greater then 30 minutes in planning, reviewing documentation, counseling the patient, and discussing with other team members." ASSESSMENT ASSESSMENT Assessment Acute asthmatic bronchitis Acute exacerbation of COPD Acute flare-up of fibromyalgia SULY CARDOZO MD Jun 04, 2024 05:16
== END 2024-06-02 14:25 | disposition home or self-care (01) | DRG 191 ==
LOC: TELE-WESTW 16:20
PROVIDERS: ADMIT Specialist; ATTEND Specialist
DX: J44.1 Chronic obstructive pulmonary disease with (acute) exacerbation (principal); E66.2 Morbid (severe) obesity with alveolar hypoventilation; M79.7 Fibromyalgia; I10 Essential (primary) hypertension; E11.9 Type 2 diabetes mellitus without complications; E86.1 Hypovolemia; E78.00 Pure hypercholesterolemia, unspecified; F31.9 Bipolar disorder, unspecified; E88.819 Insulin resistance, unspecified; K21.9 Gastro-esophageal reflux disease without esophagitis; I25.118 Atherosclerotic heart disease of native coronary artery with other forms of angina pectoris; Z96.641 Presence of right artificial hip joint; Z77.22 Contact with and (suspected) exposure to environmental tobacco smoke (acute) (chronic); Z87.891 Personal history of nicotine dependence; Z88.8 Allergy status to other drugs, medicaments and biological substances; Z79.899 Other long term (current) drug therapy; Z79.891 Long term (current) use of opiate analgesic; Z79.01 Long term (current) use of anticoagulants; Z79.84 Long term (current) use of oral hypoglycemic drugs; Z99.81 Dependence on supplemental oxygen; Z98.61 Coronary angioplasty status; Z90.710 Acquired absence of both cervix and uterus; Z82.49 Family history of ischemic heart disease and other diseases of the circulatory system; Z83.3 Family history of diabetes mellitus; Z91.148 Patient's other noncompliance with medication regimen for other reason; Z91.119 Patient's noncompliance with dietary regimen due to unspecified reason; I25.2 Old myocardial infarction; Z79.02 Long term (current) use of antithrombotics/antiplatelets; Z86.73 Personal history of transient ischemic attack (TIA), and cerebral infarction without residual deficits; Z87.440 Personal history of urinary (tract) infections; Z68.37 Body mass index [BMI] 37.0-37.9, adult
CPT/HCPCS: 36415; 71046; 80053; 80061; 81001; 82962; 83036; 83735; 84100; 84484; 85025; 87040; 87081; 87086; 93005; 94640; G0378; J1815; J1885; J3480

== ENCOUNTER 2024-06-09 07:25 | Inpatient (IN) | payer MEDICARE, MEDICAID ==
[~2024-06-09] VITALS: Ht 165.1 cm; Wt 106.7 kg
[2024-06-09] VITALS (10 sets, daily range): BP systolic 136–149; BP diastolic 72–86; PULSE 105–129; RESP 13–20; TEMP 97.3; O2SAT 94–100
[~2024-06-09 07:25] MED LIST changes: +BETA0.0534 TD; +CELE200C PO; +DULO1CAP5 PO; -EZET10TA22 PO; -GABA-1250 PO; -LORA-483 GT; -MELO15TA29 PO; +MULT-1018 PO; +OXYB5TAB14 PO; +OXYC20TA72 PO; +TIZA-142 PO; -VALS1TAB57 PO
[2024-06-09] MEDS: ceFAZolin 2 GM/D5W100ml 100 ML IV ONE (08:20)
[2024-06-09] MEDS ORDERED: fentaNYL CITRATE 100 MCG/2 ML VL ONE ×3 (08:34→11:05)
[2024-06-09] MEDS ORDERED: ONDANSETRON HCL 4 MG/2 ML VIAL ONE (09:57)
[2024-06-09] MEDS ORDERED: DexAMETHasone SOD PHOS 10MG/1ML VIAL INJ ONE (09:57)
[2024-06-09] MEDS ORDERED: PROPOFOL 10 MG/ML 20 ML IV ONE (09:57)
[2024-06-09] MEDS ORDERED: ePHEDrine SULFATE 50 MG/ML AMP ONE (10:05)
[2024-06-09] MEDS ORDERED: MEPERIDINE HCL (25 MG/ML) 1ML VIAL ONE (10:29)
[2024-06-09] MEDS ORDERED: hydrALAZINE HCL 20 MG/ML VL ONE (10:34)
[2024-06-09] MEDS: BUPIVACAINE 0.5% MPF INJ 30ML SDV IJ ONE (12:10)
--- NOTE | 2024-06-09 12:18 | DVHOP2 ---
Operative Report - 2 Report Details Date: 06/09/24 Preop Diagnosis: Left shoulder rotator cuff tear with subacromial impingement Postop Diagnosis: Left shoulder rotator cuff tear with subacromial impingement Surgeon: Enedelia Farrell MD Nailing Machine Feeder: JESUS Garcia Anesthesiologist: Dr Gann Anesthesia: General Implant: Arthrex FiberTak x1, osseo anchor x1 Consent: The patient was informed of the risks and benefits of the procedure. These include but are not limited to complications of anesthesia, postoperative infection, incomplete relief of symptoms, recurrence of symptoms, damage to blood vessels, nerves and tendons, deep venous thrombosis, pulmonary embolism and possible need for repeat surgery in the future. Complications: None Estimated Blood Loss: Less than 10 mL Indications for Surgery: The patient is a 64-year-old female who presented to the clinic with a history of left shoulder pain. Clinical and radiological evaluation demonstrated near complete rotator cuff tear. Nonoperative and operative management options were discussed. She had failed thorough nonoperative management and surgery in the form of shoulder arthroscopy with rotator cuff repair was discussed with her. Benefits, risks and treatment alternatives were discussed. Specific complications of the surgery such as neurovascular injury, infection, arthrofibrosis, loss of limb or life were discussed. She decided to proceed with the surgical option Name of Procedure Performed Left shoulder arthroscopy with rotator cuff repair and subacromial decompression Procedure Details Procedure Details: The patient was identified in the preoperative holding area and the surgical site was marked. The consent was verified. The patient was brought into the operating room and placed supine on the operating table. General anesthesia was administered. The beachchair attachment was applied to the operating table. The patient was now brought up into the beachchair position, approximately 60 degrees. The arm was prepped and draped in the usual sterile manner. The arm was placed in the attachment for the spyder, mechanical arm covarrubias. The extremity was examined under anesthesia and was found to have good passive range of motion. A timeout was performed to confirm the identity of the patient, the nature of surgery, the site of surgery, the available of implants and x-rays and allergies to medications A standard posterior portal established. A 30 degree scope was inserted A standard anterior portal was established. A probe was inserted and the findings are as follows: 1. Intact subscapularis tendon 2. Normal biceps tendon 3. Circumferential degenerative labral tear 4. Grade I-II chondromalacia 5. Significant synovitis 6. Near Full-thickness rotator cuff tear, small-sized with no retraction High-grade partial articular tear was noted. This was 90% of the footprint. This was completed. The subacromial space was entered. Decompression was carried out with bursectomy. The rotator cuff tear was visualized. This was a small size tear. I decided to repair it with a double row technique because of the patient's body habitus and large arm. A triple loaded medial row all suture anchor was inserted. This was an Arthrex anchor. This was deployed. Excellent fixation was noted. All sutures were passed through the rotator cuff tendons. The six sutures were now tied. Excellent medial row coverage was noted. All sutures were now inserted through the lateral row anchor. This was now inserted into the lateral footprint. A tap was used for this. Next the anchor was inserted. This was an osseo anchor. Excellent footprint coverage was noted. Subacromial decompression was completed with acromioplasty to remove approximately 5 mm of acromion as it was downsloping in nature. Irrigation was given and the skin portals were closed with 2-0 nylon Sterile dressing was applied. Local anesthetic was given. Shoulder immobilizer was applied Disposition: Good, the patient was extubated and taken to recovery without any complications. The patient was examined in the recovery and had intact neurovascular exam Plan: To remain in the brace. Follow-up in 1 week. Condition Good Disposition Home ENEDELIA FARRELL MD Jun 09, 2024 12:18
[2024-06-09] MEDS ORDERED: MEPERIDINE HCL (25 MG/ML) 1ML VIAL IV PRN (12:45)
[2024-06-09] MEDS: HYDROmorphone HCL 2 MG/ML VL/or syr IV PRN ×2 (12:53→17:04)
[2024-06-09] MEDS: EPINEPHrine HCL 1 MG/1 ML AMP ONE (12:53)
[2024-06-09] MEDS: SUCCINYLCHOLINE CHLORIDE 20 MG/ML 10ML VIAL IV ONE (12:54)
[2024-06-09] MEDS: ACETAMINOPHEN IV 1000 MG/100ML (10MG/ML) IV PRN (12:55)
[2024-06-09] MEDS: hydrALAZINE HCL 20 MG/ML VL IV PRN (12:59)
[2024-06-09] MEDS: KETOROLAC TROMETH 30 MG/ML 1ML VIAL IV ONE (13:17)
[2024-06-09] MEDS: ONDANSETRON HCL 4 MG/2 ML VIAL IV ONE (13:18)
[2024-06-09] MEDS: oxyCODONE HCL 5MG TAB PO ONE ×2 (14:17→15:36)
[2024-06-09] MEDS ORDERED: DEXTROSE (50%) 50ML SYRG IV PRN (16:30)
[2024-06-09] MEDS ORDERED: MORPHINE SULFATE INJ 2 MG/ml SYRG IV PRN (16:30)
[2024-06-09] MEDS ORDERED: ONDANSETRON HCL 4 MG/2 ML VIAL IV PRN (16:30)
[2024-06-09] MEDS ORDERED: OXYCODONE W/ ACETAMINOPHEN 5/325MG TABLET PO PRN (16:30)
[2024-06-09] MEDS ORDERED: NITROGLYCERIN 0.4 MG SL TAB SL PRN (16:30)
--- NOTE | 2024-06-09 16:49 | DVHHP ---
ADMIT DATE: 06/09/2024 HISTORY OF PRESENT ILLNESS: The patient is a 64-year-old lady who was admitted after she underwent surgery on the left shoulder for rotator cuff injury. The patient has a significant pain in the left shoulder. No chest pain or shortness of breath. No nausea or vomiting. REVIEW OF SYSTEMS: Review of rest of systems is otherwise currently negative. PAST MEDICAL HISTORY: Significant for COPD, fibromyalgia, diabetes mellitus, chronic pain, depression, anxiety, hyperlipidemia, hypertension. MEDICATIONS: Include Celexa, metformin, Plavix, metoprolol, Abilify, rosuvastatin, oxycodone, Protonix, Jardiance, oxybutynin, duloxetine, Celebrex, valsartan. ALLERGIES: TO DUPILUMAB, LISINOPRIL, AND SORBITAN. SOCIAL HISTORY: No history of smoking or alcohol. Lives with family. FAMILY HISTORY: Negative. PHYSICAL EXAMINATION: GENERAL: The patient is awake, alert. VITAL SIGNS: Temperature of 98.2, pulse of 112 per minute, blood pressure 137/59. SHEENT: Unremarkable. NECK: There is no JVD, no pedal edema. LUNGS: Equal bilaterally. No added sounds. CARDIOVASCULAR SYSTEM: S1, S2 is regular. No murmurs. ABDOMEN: Soft. There is no organomegaly. NEUROLOGIC: Nonfocal. MUSCULOSKELETAL: The left shoulder is currently in a splint. ASSESSMENT AND PLAN: * Diabetes mellitus. She will be placed on sliding scale insulin. * Hypertension, for which the patient will be resumed on her home medication. * Acute pain, for which she will be placed on pain medication. * Fibromyalgia. * Obesity. * Chronic obstructive pulmonary disease, for which she will be placed on bronchodilators. * Hypertension. * Hyperlipidemia. * Depression/anxiety. * Coronary artery disease, status post PTCA. * Status post left shoulder surgery for rotator cuff injury, for which she will be followed up by Dr. Farrell. ADVANCE CARE PLANNING: The patient is a full code. Time spent was 19 minutes. MD PERLA Kim/AGUSTIN TID: [id number] RECEIPT: [id number]
[2024-06-09] MEDS: ACETAMINOPHEN 325 MG TAB PO PRN (17:02)
[2024-06-09] MEDS ORDERED: cloNIDine HCL 0.1 MG TAB PO ONE (17:45)
[2024-06-09] MEDS: ACCU-CHEK COMFORT CURVE STRIP VI SCH (17:52)
[2024-06-09] MEDS: InsuLIN REG 1unit/0.01ml Soln (100units/ml) SC SCH (17:53)
[2024-06-09] MEDS: DULoxetine HCL 30 MG CAP PO ONE (17:53)
[2024-06-09] MEDS: ALBUTEROL SULF 2.5 MG/0.5ML(0.5%) NEB SOLN NEB SCH (19:09)
[2024-06-09] MEDS: IPRATROPIUM BROM 0.5 MG/2.5ML INH SOL NEB SCH (19:13)
[2024-06-09] MEDS: OXYBUTYNIN CHL 5 MG TAB PO SCH (21:05)
[2024-06-09 21:26] LABS: Urine Bacteria None Seen /hpf (None Seen)
[2024-06-09 21:42] LABS: Urine Blood TRACE /uL (Negative); Urine Budding Yeast OCCASIONAL /hpf (None Seen); Urine Clarity Clear (Clear); Urine Color Light-Yellow (Yellow); Urine Protein, UAD Negative (Negative); Urine Specific Gravity 1.012 (1.001-1.035); Urine Squamous Epithelial Cell FEW /hpf (<5); Urine Urobilinogen Normal (Negative); Urine WBC 18 /HPF (0-5); Urine pH 5.5 (5.0-9.0)
[2024-06-10] VITALS (8 sets, daily range): BP systolic 150–169; BP diastolic 72–80; PULSE 90–117; RESP 16–20; TEMP 97.6–98.6; O2SAT 94–100
[2024-06-10] MEDS: PANTOPRAZOLE 40 MG TAB PO SCH (05:54)
[2024-06-10] MEDS: DOCUSATE SOD 100 MG CAP PO PRN (05:55)
[2024-06-10 06:02] LABS: Eosinophils # (auto) 0 10 ^3/uL (0-0.8); Lymphocytes # (auto) 1.1 10 ^3/uL (0.4-5.4); Monocytes # (auto) 0.8 10 ^3/uL (0-1.3)
[2024-06-10 06:05] LABS: Basophils # (auto) 0 10 ^3/uL (0-0.2); Basophils % (auto) 0.4 % (0.0-2.0); Hematocrit 33.2 % (36.0-46.0); Lymphocytes % (auto) 10.7 % (10.0-50.0); Mean Corpuscular Hemoglobin 26.6 pg (28.0-32.0); Mean Corpuscular Hgb Conc. 33.2 g/dL (32.0-36.0); Mean Corpuscular Volume 80.3 fL (80.0-100.0); Monocytes % (auto) 7.4 % (0.0-12.0); Neutrophils # (auto) 8.3 10 ^3/uL (1.6-8.6); Neutrophils % (auto) 81.5 % (37.0-80.0); Nucleated Red Blood Cells % 0.1 %; Platelet Count (auto) 286 10^3/uL (140-450); Red Blood Cells 4.14 10^6/uL (4.0-5.20); Red Cell Distribution Width 15.4 % (11.8-14.3); White Blood Cell 10.2 10^3/uL (4.4-10.8)
[2024-06-10 06:13] LABS: Alanine Aminotransferase 13 U/L (7-40); Albumin 4.1 g/dL (3.2-4.8); Alkaline Phosphatase 83 U/L (46-116); Anion Gap 7 (5-15); Aspartate Aminotransferase 24 U/L (13-40); BUN/Creatinine Ratio 19.7 (10.0-20.0); Blood Urea Nitrogen 14 mg/dL (9-23); Calcium 9.4 mg/dL (8.7-10.4); Carbon Dioxide 26 mmol/L (20-31); Chloride 106 mmol/L (98-107); Sodium 139 mmol/L (136-145); Total Protein 6.9 g/dL (5.7-8.2)
[2024-06-10 06:17] LABS: Bilirubin, Total 0.3 mg/dL (0.2-1.0); Glucose 162 mg/dL (74-106)
--- NOTE | 2024-06-10 07:10 | DVH ---
EXAM: XR Chest, 1 View CLINICAL INDICATION: COPD TECHNIQUE: Frontal view of the chest. COMPARISON: XY CHEST XRAY 1 VIEW on DOS: 04/28/24, XY CHEST PORTABLE on DOS: 09/13/23, XY CHEST PORTAB LE on DOS: 05/12/23, XY CHEST XRAY 1 VIEW on DOS: 03/20/23, XY CHEST PORTABLE on DOS: 01/29/23 FINDINGS: LUNGS AND PLEURAL SPACES: Mild pulmonary congestion. No consolidation. No pneumothorax. HEART: Unremarkable. No cardiomegaly. MEDIASTINUM: Unremarkable. Normal mediastinal contour. BONES/JOINTS: Unremarkable. No acute fracture. OTHER FINDINGS: . IMPRESSION: Mild pulmonary congestion.
[2024-06-10] MEDS: CITALOPRAM HYDROBR 20 MG TAB PO SCH (09:50)
[2024-06-10] MEDS: EMPAGLIFLOZIN 10 MG TAB PO SCH (09:51)
[2024-06-10] MEDS: DULoxetine HCL 30 MG CAP PO SCH (09:51)
[2024-06-10] MEDS: VALSARTAN 80 MG TAB PO SCH (09:51)
[2024-06-10] MEDS: METOPROLOL SUCCINATE XL 50 MG TAB PO SCH (09:52)
--- NOTE | 2024-06-10 09:59 | DVHDS2 ---
Discharge Summary Date of Admission Jun 09, 2024 at 16:20 Date of Discharge: Jun 10, 2024 Labs/Diagnostic Data: Laboratory Results Test 06/10/24 05:49 06/10/24 05:38 06/09/24 20:25 POC Glucose 191 mg/dl (70-106) White Blood Count 10.2 10^3/uL (4.4-10.8) Red Blood Count 4.14 10^6/uL (4.0-5.20) Hemoglobin 11.0 g/dL (12.2-16.2) Hematocrit 33.2 % (36.0-46.0) Mean Corpuscular Volume 80.3 fL (80.0-100.0) Mean Corpuscular Hemoglobin 26.6 pg (28.0-32.0) Mean Corpuscular Hemoglobin Concent 33.2 g/dL (32.0-36.0) Red Cell Distribution Width 15.4 % (11.8-14.3) Platelet Count 286 10^3/uL (140-450) Mean Platelet Volume 7.7 fL (6.9-10.8) Neutrophils (%) (Auto) 81.5 % (37.0-80.0) Lymphocytes (%) (Auto) 10.7 % (10.0-50.0) Monocytes (%) (Auto) 7.4 % (0.0-12.0) Eosinophils (%) (Auto) 0.0 % (0.0-7.0) Basophils (%) (Auto) 0.4 % (0.0-2.0) Neutrophils # (Auto) 8.3 10 ^3/uL (1.6-8.6) Lymphocytes # (Auto) 1.1 10 ^3/uL (0.4-5.4) Monocytes # (Auto) 0.8 10 ^3/uL (0-1.3) Eosinophils # (Auto) 0 10 ^3/uL (0-0.8) Basophils # (Auto) 0 10 ^3/uL (0-0.2) Nucleated Red Blood Cells 0.1 % Sodium Level 139 mmol/L (136-145) Potassium Level 4.0 mmol/L (3.5-5.1) Chloride Level 106 mmol/L (98-107) Carbon Dioxide Level 26 mmol/L (20-31) Anion Gap 7 (5-15) Blood Urea Nitrogen 14 mg/dL (9-23) Creatinine 0.71 mg/dL (0.550-1.02) Glomerular Filtration Rate Calc 94 mL/min (>90) BUN/Creatinine Ratio 19.7 (10.0-20.0) Serum Glucose 162 mg/dL (74-106) Calcium Level 9.4 mg/dL (8.7-10.4) Total Bilirubin 0.3 mg/dL (0.2-1.0) Aspartate Amino Transferase (AST) 24 U/L (13-40) Alanine Aminotransferase (ALT) 13 U/L (7-40) Alkaline Phosphatase 83 U/L (46-116) Total Protein 6.9 g/dL (5.7-8.2) Albumin 4.1 g/dL (3.2-4.8) Urine Color Light-yellow (Yellow) Urine Clarity Clear (Clear) Urine pH 5.5 (5.0-9.0) Urine Specific [place] 1.012 (1.001-1.035) Urine Protein Negative (Negative) Urine Ketones 1+ (Negative) Urine Blood Trace /uL (Negative) Urine Nitrite Negative (Negative) Urine Bilirubin Negative (Negative) Urine Urobilinogen Normal mg/dL (Negative) Urine Leukocyte Esterase 2+ /uL (Negative) Urine RBC 4 /hpf (0 - 4) Urine Microscopic WBC 18 /HPF (0-5) Urine Squamous Epithelial Cells Few /hpf (<5) Urine Bacteria None seen /hpf (None Seen) Urine Yeast (Budding) Occasional /hpf (None Urine Glucose 4+ mg/dL (Normal) Other Laboratory Tests 06/10/24 05:38 Brief Hx & Hospital Course: Patient was brought to the hospital yesterday to undergo a left arthroscopic rotator cuff repair and subacromial decompression, she tolerated the procedure well without complications and was kept overnight for postoperative evaluation and better pain control as she was complaining of severe pain after surgery. Patient notes that the pain has improved since surgery although it is still pretty bad only minimally improved with the help of pain medication. Patient is otherwise feeling well denying any other complaint or concern during my evaluation and is ready to go home. Condition at Discharge: Good Final Diagnosis/Problems List Left shoulder rotator cuff tear with subacromial impingement Discharge Disposition: Home Discharge Instruct/Medications Diet: Cardiac 2g Na,low cholest Activity: See Comment Activity comment: Patient is to remain in her shoulder immobilizer for six weeks from the date of surgery Follow Up/Referral: I instructed the patient to follow up with our office in 10-14 days for her 1st postoperative evaluation Medications: Rx sent via our outpatient EMR system Discharge Statement: "Patient was advised to return to the ER or call 911 if any headaches, dizziness, shortness of breath, chest pain, abdominal pain, bleeding, fevers, or worsening of medical condition. Patient was counseled about treatment plan, medications, possible side effects, patientverbalized understanding. All questions were answered to the best of my ability. This discharge took greater then 30 minutes in planning, reviewing documentation, counseling the patient, and discussing with other team members." ASSESSMENT ASSESSMENT Assessment Left shoulder rotator cuff tear with subacromial impingement AZAEL HAWK Jun 10, 2024 09:59
--- NOTE | 2024-06-10 10:01 | DVHPN2 ---
Progress Note - Dictate Date Seen: Jun 10, 2024 Medical Necessity Reason Pt with a Central, PICC or Fol: No Subjective Patient was lying comfortably in bed during my evaluation reports some postoperative shoulder pain that is being minimally improved with the help of pain medication although it is better than yesterday. Patient reports that she has not yet gotten up and walked and has remained in her shoulder immobilizer since surgery. Patient is otherwise feeling well denying any other complaint or concerns during my evaluation and would like to go home. vital signs Vital Sign Date Time Temp Pulse Resp B/P (MAP) Pulse Ox O2 Delivery O2 Flow Rate FiO2 06/10/24 09:52 97 169/72 06/10/24 09:52 18 06/10/24 08:56 98.6 96 98.6 06/10/24 08:00 Room Air* 0 21 Total Intake and Output 06/09/24 06/09/24 06/10/24 15:00 23:00 07:00 Intake Total 100 ml 450 ml Balance 100 ml 450 ml medications Current Medications Medications Dose Ordered Sig/Kitty Route Start Time Stop Time Status Last Admin Dose Admin Nitroglycerin 0.4 mg Q5MINP PRN SL 06/09/24 16:30 Morphine Sulfate 2 mg Q30M PRN IV 06/09/24 16:30 Diagnostic Test (Pha) 1 strip ACHS 06/09/24 17:00 06/10/24 06:11 1 STRIP Insulin Human Regular ACHS SC 06/09/24 17:00 06/10/24 06:12 3 UNITS Dextrose 50 ml UD PRN IV 06/09/24 16:30 Citalopram Hydrobromide 20 mg DAILY PO 06/10/24 10:00 06/10/24 09:50 20 MG Hydromorphone HCl 1 mg Q4HPRN PRN IV 06/09/24 16:30 06/10/24 09:52 1 MG Metoprolol Succinate 50 mg DAILY PO 06/10/24 10:00 06/10/24 09:52 50 MG Duloxetine HCl 30 mg DAILY PO 06/10/24 10:00 06/10/24 09:51 30 MG Oxycodone/ Acetaminophen 1 tab Q6HP PRN PO 06/09/24 16:30 Acetaminophen 650 mg Q6HP PRN PO 06/09/24 16:30 06/09/24 17:02 650 MG Ondansetron HCl 4 mg Q6HPRN PRN IV 06/09/24 16:30 Empaglifozin 10 mg DAILY PO 06/10/24 10:00 06/10/24 09:51 10 MG Pantoprazole Sodium 40 mg DAILY@0600 PO 06/10/24 06:00 06/10/24 05:54 40 MG Oxybutynin Chloride 5 mg Q12HR PO 06/09/24 22:00 06/10/24 09:51 5 MG Valsartan 80 mg DAILY PO 06/10/24 10:00 06/10/24 09:51 80 MG Docusate Sodium 100 mg BIDPRN PRN PO 06/09/24 16:30 06/10/24 05:55 100 MG Albuterol 2.5 mg Q6HWA NEB 06/09/24 18:00 06/10/24 06:17 2.5 MG Ipratropium [place] 0.5 mg Q6HWA NEB 06/09/24 18:00 06/10/24 06:17 0.5 MG objective A&O x4 in no acute distress Shoulder range of motion not fully evaluated as patient remains in shoulder immobilizer Dressing clean, dry, and intact No distal edema or calf tenderness to palpation Neurovascularly intact to bilateral upper extremities with cap refill less than 2 seconds laboratory and microbiology Laboratory Tests 06/10/24 05:38 Test 06/10/24 05:38 Range/Units Serum Glucose 162 H 74-106 mg/dL Assessment/Plan Patient to be discharged home and advised to remain in shoulder immobilizer for six weeks from date of surgery. I also instructed the patient to follow up with our office in 10-14 days for her 1st postoperative evaluation. I advised the patient to maintain her dressings clean, dry, and intact and to call our office if she has any questions or concerns. Rx sent via our outpatient EMR system. She understood and agreed. Plan discussed with: Patient AZAEL HAWK Jun 10, 2024 10:01
--- NOTE | 2024-06-10 11:05 | DVHHP2 ---
Review of Systems Allergies: Coded Allergies: Benzalkonium Chloride (Verified Allergy, Unknown, 07/08/18) Dupilumab (Verified Allergy, Unknown, 05/30/24) Lisinopril (Verified Allergy, Unknown, 07/08/18) Sorbitan (Verified Allergy, Unknown, 05/30/24) Medications Current Medications Medications Dose Ordered Sig/Kitty Route Start Time Stop Time Status Last Admin Dose Admin Nitroglycerin 0.4 mg Q5MINP PRN SL 06/09/24 16:30 Morphine Sulfate 2 mg Q30M PRN IV 06/09/24 16:30 Diagnostic Test (Pha) 1 strip ACHS 06/09/24 17:00 06/10/24 06:11 1 STRIP Insulin Human Regular ACHS SC 06/09/24 17:00 06/10/24 06:12 3 UNITS Dextrose 50 ml UD PRN IV 06/09/24 16:30 Citalopram Hydrobromide 20 mg DAILY PO 06/10/24 10:00 06/10/24 09:50 20 MG Hydromorphone HCl 1 mg Q4HPRN PRN IV 06/09/24 16:30 06/10/24 09:52 1 MG Metoprolol Succinate 50 mg DAILY PO 06/10/24 10:00 06/10/24 09:52 50 MG Duloxetine HCl 30 mg DAILY PO 06/10/24 10:00 06/10/24 09:51 30 MG Oxycodone/ Acetaminophen 1 tab Q6HP PRN PO 06/09/24 16:30 Acetaminophen 650 mg Q6HP PRN PO 06/09/24 16:30 06/09/24 17:02 650 MG Ondansetron HCl 4 mg Q6HPRN PRN IV 06/09/24 16:30 Empaglifozin 10 mg DAILY PO 06/10/24 10:00 06/10/24 09:51 10 MG Pantoprazole Sodium 40 mg DAILY@0600 PO 06/10/24 06:00 06/10/24 05:54 40 MG Oxybutynin Chloride 5 mg Q12HR PO 06/09/24 22:00 06/10/24 09:51 5 MG Valsartan 80 mg DAILY PO 06/10/24 10:00 06/10/24 09:51 80 MG Docusate Sodium 100 mg BIDPRN PRN PO 06/09/24 16:30 06/10/24 05:55 100 MG Albuterol 2.[address] [facility] 06/09/24 18:00 06/10/24 06:17 2.5 MG Ipratropium [place] 0.[address] [facility] 06/09/24 18:00 06/10/24 06:17 0.5 MG Exam Vital Signs Vital Signs Date Time Temp Pulse Resp B/P (MAP) Pulse Ox O2 Delivery O2 Flow Rate FiO2 06/10/24 10:56 97 06/10/24 09:52 169/72 06/10/24 09:52 18 06/10/24 08:56 98.6 96 98.6 06/10/24 08:00 Room Air* 0 21 Labs/Xrays Labs Test 06/10/24 05:49 06/10/24 05:38 06/09/24 20:25 Range/Units POC Glucose 191 H 70-106 mg/dl White Blood Count 10.2 4.4-10.8 10^3/uL Red Blood Count 4.14 4.0-5.20 10^6/uL Hemoglobin 11.0 L 12.2-16.2 g/dL Hematocrit 33.2 L 36.0-46.0 % Mean Corpuscular Volume 80.3 80.0-100.0 fL Mean Corpuscular Hemoglobin 26.6 L 28.0-32.0 pg Mean Corpuscular Hemoglobin Concent 33.2 32.0-36.0 g/dL Red Cell Distribution Width 15.4 H 11.8-14.3 % Platelet Count 286 140-450 10^3/uL Mean Platelet Volume 7.7 6.9-10.8 fL Neutrophils (%) (Auto) 81.5 H 37.0-80.0 % Lymphocytes (%) (Auto) 10.7 10.0-50.0 % Monocytes (%) (Auto) 7.4 0.0-12.0 % Eosinophils (%) (Auto) 0.0 0.0-7.0 % Basophils (%) (Auto) 0.4 0.0-2.0 % Neutrophils # (Auto) 8.3 1.6-8.6 10 ^3/uL Lymphocytes # (Auto) 1.1 0.4-5.4 10 ^3/uL Monocytes # (Auto) 0.8 0-1.3 10 ^3/uL Eosinophils # (Auto) 0 0-0.8 10 ^3/uL Basophils # (Auto) 0 0-0.2 10 ^3/uL Nucleated Red Blood Cells 0.1 % Sodium Level 139 136-145 mmol/L Potassium Level 4.0 3.5-5.1 mmol/L Chloride Level 106 98-107 mmol/L Carbon Dioxide Level 26 20-31 mmol/L Anion Gap 7 5-15 Blood Urea Nitrogen 14 9-23 mg/dL Creatinine 0.71 0.550-1.02 mg/dL Glomerular Filtration Rate Calc 94 >90 mL/min BUN/Creatinine Ratio 19.7 10.0-20.0 Serum Glucose 162 H 74-106 mg/dL Calcium Level 9.4 8.7-10.4 mg/dL Total Bilirubin 0.3 0.2-1.0 mg/dL Aspartate Amino Transferase (AST) 24 13-40 U/L Alanine Aminotransferase (ALT) 13 7-40 U/L Alkaline Phosphatase 83 46-116 U/L Total Protein 6.9 5.7-8.2 g/dL Albumin 4.1 3.2-4.8 g/dL Urine Color Light-yellow Yellow Urine Clarity Clear Clear Urine pH 5.5 5.0-9.0 Urine Specific [place] 1.012 1.001-1.035 Urine Protein Negative Negative Urine Ketones 1+ H Negative Urine Blood Trace H Negative /uL Urine Nitrite Negative Negative Urine Bilirubin Negative Negative Urine Urobilinogen Normal Negative mg/dL Urine Leukocyte Esterase 2+ Negative /uL Urine RBC 4 0 - 4 /hpf Urine Microscopic WBC 18 H 0-5 /HPF Urine Squamous Epithelial Cells Few <5 /hpf Urine Bacteria None seen None Seen /hpf Urine Yeast (Budding) Occasional None Seen /hpf Urine Glucose 4+ H Normal mg/dL Assessment/Plan Assessment/Plan see dictated note Plan discussed with: Patient My Orders Orders - DIMAS URIAS MD Procedure Category Date Status Time Admit ADMIT 06/09/24 Transmitted 16:20 Nitroglycerin PHA 06/09/24 In Process Sublingual (Ntrostat 16:30 Morphine Sulfate PHA 06/09/24 In Process Injection 16:30 Stat Ekg For Chest ZOE 06/09/24 In Process Pain 16:20 Notify Of Changes ZOE 06/09/24 In Process From Base 16:20 [employer] For ZOE 06/09/24 In Process 24 Hours 16:20 Emergency Dysrhythmia ZOE 06/09/24 In Process Protocol 16:20 Rhythm Strips Once ZOE 06/09/24 In Process Every Shift 16:20 Oxygen By Nasal RT 06/09/24 Transmitted Cannula 16:20 Consistent DIET 06/09/24 Transmitted Carb(Ccho)Diabetes Dinner Glucose Blood PHA 06/09/24 In Process (Accu-Chek Comfort 17:00 Insulin R (Human) PHA 06/09/24 In Process (Insulin R) 17:00 Dextrose 50% Syringe PHA 06/09/24 In Process 16:30 Citalopram Tablet PHA 06/10/24 In Process (Celexa Tablet) 10:00 Hydromorphone PHA 06/09/24 In Process Injection (Dilaudid 16:30 Metoprolol Xl PHA 06/10/24 In Process Succinate (Toprol Xl) 10:00 Duloxetine Hcl PHA 06/10/24 In Process Capsule (Cymbalta 10:00 Oxycodone W/ Acet PHA 06/09/24 In Process 5/325mg Tab (Percocet 16:30 Acetaminophen Tablet PHA 06/09/24 In Process (Tylenol Tablet) 16:30 Ondansetron Hcl PHA 06/09/24 In Process (Zofran) 16:30 Empagliflozin PHA 06/10/24 In Process (Jardiance) 10:00 Pantoprazole Tablet PHA 06/10/24 In Process (Protonix Tablet) 06:00 Oxybutynin Chloride PHA 06/09/24 In Process Tablet (Ditropan Tab 22:00 Valsartan (Diovan) PHA 06/10/24 In Process 10:00 Docusate Sodium PHA 06/09/24 In Process Capsule (Colace 16:30 Urinalysis LAB 06/09/24 Logged 20:40 Albuterol Medneb PHA 06/09/24 In Process (Ventolin Medneb) 18:00 Ipratropium Medneb PHA 06/09/24 In Process (Atrovent Medneb) 18:00 Chest Portable XY 06/10/24 Resulted 06:00 Date of Service: Jun 10, 2024 Billing Provider: DIMAS URIAS MD Common Visit Codes: [id number] INP/OBS CARE (HIGH) Secondary Visit Codes: [id number] CARE PLAN 30 MINUTES DIMAS URIAS MD Jun 10, 2024 11:05
--- NOTE | 2024-06-10 11:06 | DVHPN2 ---
Progress Note Date Seen: Jun 10, 2024 Medical Necessity Reason Pt with a Central, PICC or Fol: No Subjective Patient reports: No new complaints Review of Systems: HEENT:Normal, CVS:Normal, RESPIRATORY:Normal, GI:Normal, :Normal, MSK:Normal, NEURO:Normal Objective vital signs Vital Sign Date Time Temp Pulse Resp B/P (MAP) Pulse Ox O2 Delivery O2 Flow Rate FiO2 06/10/24 10:56 97 06/10/24 09:52 169/72 06/10/24 09:52 18 06/10/24 08:56 98.6 96 98.6 06/10/24 08:00 Room Air* 0 21 Total Intake and Output 06/09/24 06/09/24 06/10/24 15:00 23:00 07:00 Intake Total 100 ml 450 ml Balance 100 ml 450 ml medications Current Medications Medications Dose Ordered Sig/Kitty Route Start Time Stop Time Status Last Admin Dose Admin Nitroglycerin 0.4 mg Q5MINP PRN SL 06/09/24 16:30 Morphine Sulfate 2 mg Q30M PRN IV 06/09/24 16:30 Diagnostic Test (Pha) 1 strip ACHS 06/09/24 17:00 06/10/24 06:11 1 STRIP Insulin Human Regular ACHS SC 06/09/24 17:00 06/10/24 06:12 3 UNITS Dextrose 50 ml UD PRN IV 06/09/24 16:30 Citalopram Hydrobromide 20 mg DAILY PO 06/10/24 10:00 06/10/24 09:50 20 MG Hydromorphone HCl 1 mg Q4HPRN PRN IV 06/09/24 16:30 06/10/24 09:52 1 MG Metoprolol Succinate 50 mg DAILY PO 06/10/24 10:00 06/10/24 09:52 50 MG Duloxetine HCl 30 mg DAILY PO 06/10/24 10:00 06/10/24 09:51 30 MG Oxycodone/ Acetaminophen 1 tab Q6HP PRN PO 06/09/24 16:30 Acetaminophen 650 mg Q6HP PRN PO 06/09/24 16:30 06/09/24 17:02 650 MG Ondansetron HCl 4 mg Q6HPRN PRN IV 06/09/24 16:30 Empaglifozin 10 mg DAILY PO 06/10/24 10:00 06/10/24 09:51 10 MG Pantoprazole Sodium 40 mg DAILY@0600 PO 06/10/24 06:00 06/10/24 05:54 40 MG Oxybutynin Chloride 5 mg Q12HR PO 06/09/24 22:00 06/10/24 09:51 5 MG Valsartan 80 mg DAILY PO 06/10/24 10:00 06/10/24 09:51 80 MG Docusate Sodium 100 mg BIDPRN PRN PO 06/09/24 16:30 06/10/24 05:55 100 MG Albuterol 2.5 mg Q6HWA NEB 06/09/24 18:00 06/10/24 06:17 2.5 MG Ipratropium [place] 0.5 mg Q6HWA NEB 06/09/24 18:00 06/10/24 06:17 0.5 MG Examination: GENERAL:Normal, HEENT:Normal, NECK:Normal, LUNGS:Normal, CVS:Normal, ABDOMEN:Normal, MSK:Normal, MSK:Abnormal (left shoulder sling), SKIN:Normal, NEURO:Normal, :Normal laboratory and microbiology Laboratory Tests 06/10/24 05:38 Test 06/10/24 05:38 Range/Units Serum Glucose 162 H 74-106 mg/dL Problem List/Assessment/Plan Problem List/Assessment/Plan * Diabetes mellitus. She will be placed on sliding scale insulin. * Hypertension, for which the patient will be resumed on her home medication. * Acute pain, for which she will be placed on pain medication. * Fibromyalgia. * Obesity. * Chronic obstructive pulmonary disease, for which she will be placed on bronchodilators. * Hypertension. * Hyperlipidemia. * Depression/anxiety. * Coronary artery disease, status post PTCA. * Status post left shoulder surgery for rotator cuff injury, for which she will be followed up by Dr. Farrell. dc plan to home today Plan discussed with: Patient My Orders My Orders Orders - DIMAS URIAS MD Procedure Category Date Status Time Admit ADMIT 06/09/24 Transmitted 16:20 Nitroglycerin PHA 06/09/24 In Process Sublingual (Ntrostat 16:30 Morphine Sulfate PHA 06/09/24 In Process Injection 16:30 Stat Ekg For Chest ZOE 06/09/24 In Process Pain 16:20 Notify Of Changes ZOE 06/09/24 In Process From Base 16:20 Produce Clerk For ZOE 06/09/24 In Process 24 Hours 16:20 Emergency Dysrhythmia ZOE 06/09/24 In Process Protocol 16:20 Rhythm Strips Once ZOE 06/09/24 In Process Every Shift 16:20 Oxygen By Nasal RT 06/09/24 Transmitted Cannula 16:20 Consistent DIET 06/09/24 Transmitted Carb(Ccho)Diabetes Dinner Glucose Blood PHA 06/09/24 In Process (Accu-Chek Comfort 17:00 Insulin R (Human) PHA 06/09/24 In Process (Insulin R) 17:00 Dextrose 50% Syringe PHA 06/09/24 In Process 16:30 Citalopram Tablet PHA 06/10/24 In Process (Celexa Tablet) 10:00 Hydromorphone PHA 06/09/24 In Process Injection (Dilaudid 16:30 Metoprolol Xl PHA 06/10/24 In Process Succinate (Toprol Xl) 10:00 Duloxetine Hcl PHA 06/10/24 In Process Capsule (Cymbalta 10:00 Oxycodone W/ Acet PHA 06/09/24 In Process 5/325mg Tab (Percocet 16:30 Acetaminophen Tablet PHA 06/09/24 In Process (Tylenol Tablet) 16:30 Ondansetron Hcl PHA 06/09/24 In Process (Zofran) 16:30 Empagliflozin PHA 06/10/24 In Process (Jardiance) 10:00 Pantoprazole Tablet PHA 06/10/24 In Process (Protonix Tablet) 06:00 Oxybutynin Chloride PHA 06/09/24 In Process Tablet (Ditropan Tab 22:00 Valsartan (Diovan) PHA 06/10/24 In Process 10:00 Docusate Sodium PHA 06/09/24 In Process Capsule (Colace 16:30 Urinalysis LAB 06/09/24 Logged 20:40 Albuterol Medneb PHA 06/09/24 In Process (Ventolin Medneb) 18:00 Ipratropium Medneb PHA 06/09/24 In Process (Atrovent Medneb) 18:00 Chest Portable XY 06/10/24 Resulted 06:00 Date of Service: Jun 10, 2024 Billing Provider: DIMAS URIAS MD Common Visit Codes: [id number] INP/OBS CARE(HIGH) DIMAS URIAS MD Jun 10, 2024 11:06
--- NOTE | 2024-06-10 13:48 | DVHINCON2 ---
Date of service: Jun 09, 2024 History of Present Illness 63 year-old middle-aged -[place] female with a known history of hypertension, NIDDM, hypercholesterolemia, obesity and CAD status post PTCA 2007 as well as known history of COPD, fibromyalgia is Electively admitted for L shoulder rotator cuff repair surgery through L shoulder arthroscopy by Dr. Shahla Riojas orthopedic surgeon. Prior to surgery, patient was medically and cardiac cleared by me. Risks benefits Complications of surgery are well discussed by Dr. Shahla Riojas. The patient Gave informed consent. She received uneventful Left shoulder arthroscopy with rotator cuff repair and subacromial decompression. EBL was 10 mL The patient reports Postsurgical pains requiring parenteral analgesia. The patient is admitted to medical floor. At request of patient, I attended the patient I had case discussion with patient's assigned RN in recovery unit. Past Medical History Past medical history records: Reviewed Cardiovascular history: Long history of hypertension complicated by hypertensive CAD Suffered acute HI and noted to have occlusive disease of RCA requiring PTCA followed by stent placement in the year 2007 Patient suffers chronic stable angina requiring multiple hospitalization She received multiple stress EKG test and angiographic study including last one in November 2021 Respiratory history: COPD, obesity hypoventilation syndrome Gastrointestinal history: GE reflux Genitourinary history: Recurrent UTI over the past 12 months Endocrine history: Fairly well-controlled NIDDM-hemoglobin A1c stays under 6.5% to 7% Currently on metformin Exogenous obesity-BMI 41 kg/m, verbally counseled to lose weight of 100 pounds through diet and exercise Hypercholesterolemia currently on Lipitor-and Ecotrin Neurology history: History of CVA with no residual focal deficit Musculoskeletal history: Severe osteoarthritis affecting hip and knees-followed by Dr. Chandler Dermatitis affecting bilateral lower extremities Psychiatric history: Bipolar disorder-currently on Lamictal, Abilify Past Surgical History Total R hip replacement by Dr. Chandler Family History: Cardiovascular disease G8 FATHER, Onset:s - Diabetes mellitus FHx: cancer G8 MOTHER, Onset:s - Hypertension G8 MOTHER, Onset:s - G8 FATHER, Onset: - Social History , lives with her spouse History of smoking: Cigarettes: Exposure to passive smoking for many years- father and spouse History of smoking E cigarettes: Never History of smoking marijuana: Never History of drinking alcohol: sober drinking on social occasions History of substance abuse: Never Allergies: Coded Allergies: Benzalkonium Chloride (Verified Allergy, Unknown, 07/08/18) Dupilumab (Verified Allergy, Unknown, 05/30/24) Lisinopril (Verified Allergy, Unknown, 07/08/18) Sorbitan (Verified Allergy, Unknown, 05/30/24) Home Meds Active Scripts Albuterol Sulfate (Ventolin) 2.5 Mg/0.5 Ml Nb, 2.5 MG NEB Q4HPRN PRN for 50 Days, #100 ML 1 Refill Prov:SULY CARDOZO MD 01/20/22 Reported Medications Multiple Vitamin (Multivitamins) Tab, 1 TAB PO DAILY, #90 TAB 3 Refills 05/29/24 Celecoxib (Celebrex) 200 Mg Cap, 200 MG PO HS, CAP 05/29/24 Betamethasone Dipropionate (Betamethasone Dipropionat) 0.05 % Oin, 1 APPLIC TD BID 05/29/24 Duloxetine HCl (Duloxetine HCl) 30 Mg Cap, 30 MG PO DAILY 05/29/24 Tizanidine Hydrochloride (Tizanidine Hcl) 4 Mg Tab, 4 MG PO BID 05/29/24 Oxybutynin Chloride (Oxybutynin Chloride) 5 Mg Tab, 10 MG PO DAILY 05/29/24 Oxycodone HCl (Oxycodone Hydrochloride) 20 Mg Tab, 20 MG PO Q8HPRN PRN for PAIN SCALE 7 THRU 10 05/29/24 Valsartan-Hydrochlorothiazide (Diovan Hct) 160 /12.5 Tab, 1 TAB PO DAILY 05/15/23 Aripiprazole (Aripiprazole) 10 Mg Tab, 1 TAB PO DAILY 05/15/23 Metformin Hydrochloride (Metformin Hcl Er) 750 Mg Tab, 1 TAB PO DAILY, #90 TAB 3 Refills 05/12/23 Rosuvastatin Calcium (Crestor) 20 Mg Tab, 1 TAB PO DAILY for LOWER BAD CHOLESTEROL, #30 TAB 5 Refills 04/03/22 Pantoprazole Sodium Sesquihydr (Pantoprazole Sodium) 40 Mg Tab, 40 MG PO QAM for GERD, TAB PRIOR TO BREAKFAST PER PT SHOULD STILL BE ON THIS MEDICATION EVEN THOUGH NO P/UP HISTORY IN EXTERNAL MED 11/21/21 Empagliflozin (Jardiance) 10 Mg Tab, 10 MG PO DAILY for DIABETES, TAB 11/21/21 Escitalopram Oxalate (ESCITALOPRAM OXALATE) 20 Mg Tab, 1 TAB PO DAILY for DEPRESSION, #30 TAB 5 Refills 11/21/21 Metoprolol Succinate (Metoprolol Succinate Er) 50 Mg Tab, 50 MG PO DAILY for BLOOD PRESSURE NEW DISCHARGE MED IS METOPROLOL SUCC ER 25 MG BID, BUT PATIENT HAS NOT STARTED TAKING YET AND WOULD LIKE TO BE KEPT ON 50 MG DAILY 07/12/20 Mupirocin Calcium (Topical) (MUPIROCIN) 2 % Cre, 1 APPLIC TOP BID for Skin infection PER PATIENT'S HOME MED LIST: APPLY TOPICALLY TO OPEN WOUNDS BID PT USES 2 GRAMS BID 01/18/20 Docusate Sodium (DOCQLACE) 100 Mg Cap, 100 MG PO DAILY PRN for FOR CONSTIPATION, CAP 06/04/18 Albuterol Sulfate (VENTOLIN MDI) 90 Mcg Ih, 2 PUFF IN Q6HPRN PRN for SHORTNESS OF BREATH EXTERNAL MED HX SAYS Q4HR. PATIENT USES Q6HR PRN 06/04/18 Clopidogrel Bisulfate (CLOPIDOGREL) 75 Mg Tab, 75 MG PO DAILY 06/04/18 Current Medications Current Medications Medications (Trade) Dose Ordered Sig/Kitty Route PRN Reason Start Time Stop Time Status Last Admin Acetaminophen (Ofirmev) 1,000 mg [id number] PRN IV PAIN SCALE 1-3 OR TEMP>100.4 06/09/24 12:45 06/09/24 12:46 DC 06/09/24 12:55 Hydralazine HCl (Apresoline Injection) 5 mg Q10M PRN IV SBP>160 06/09/24 12:45 06/09/24 13:36 DC 06/09/24 13:23 Hydromorphone HCl (Dilaudid Injection) 0.5 mg Q10M PRN IV SEVERE PAIN (7-10 PAIN SCALE) 06/09/24 12:45 06/09/24 13:26 DC 06/09/24 13:38 Meperidine HCl (Demerol Injection) 25 mg Q10M PRN IV MODERATE PAIN (4-6 PAIN SCALE) 06/09/24 12:45 06/09/24 13:16 DC Nitroglycerin (Ntrostat Sublingual) 0.4 mg Q5MINP PRN SL FOR CHEST PAIN 06/09/24 16:30 06/10/24 12:27 DC Morphine Sulfate 2 mg Q30M PRN IV FOR CHEST PAIN 06/09/24 16:30 06/10/24 12:27 DC Diagnostic Test (Pha) (Accu-Chek Comfort Curve T) 1 strip ACHS 06/09/24 17:00 06/10/24 12:27 DC 06/10/24 06:11 Insulin Human Regular (InsuLIN R) ACHS SC 06/09/24 17:00 06/10/24 12:27 DC 06/10/24 06:12 Dextrose 50 ml UD PRN IV Blood Sugar LESS THAN 60 06/09/24 16:30 06/10/24 12:27 DC Citalopram Hydrobromide (CeleXA TABLET) 20 mg DAILY PO 06/10/24 10:00 06/10/24 12:27 DC 06/10/24 09:50 Hydromorphone HCl (Dilaudid Injection) 1 mg Q4HPRN PRN IV SEVERE PAIN (7-10 PAIN SCALE) 06/09/24 16:30 06/10/24 12:27 DC 06/10/24 09:52 Metoprolol Succinate (Toprol Xl) 50 mg DAILY PO 06/10/24 10:00 06/10/24 12:27 DC 06/10/24 09:52 Duloxetine HCl (Cymbalta Capsule) 30 mg DAILY PO 06/10/24 10:00 06/10/24 12:27 DC 06/10/24 09:51 Oxycodone/ Acetaminophen (Percocet 5/ 325MG Tablet) 1 tab Q6HP PRN PO MODERATE PAIN (4-6 PAIN SCALE) 06/09/24 16:30 06/10/24 12:27 DC Acetaminophen (Tylenol Tablet) 650 mg Q6HP PRN PO MILD PAIN (1-3 PAIN SCALE) 06/09/24 16:30 06/10/24 12:27 DC 06/09/24 17:02 Ondansetron HCl (Zofran) 4 mg Q6HPRN PRN IV NAUSEA / VOMITING 06/09/24 16:30 06/10/24 12:27 DC Empaglifozin (Jardiance) 10 mg DAILY PO 06/10/24 10:00 06/10/24 12:27 DC 06/10/24 09:51 Pantoprazole Sodium (Protonix Tablet) 40 mg DAILY@0600 PO 06/10/24 06:00 06/10/24 12:27 DC 06/10/24 05:54 Oxybutynin Chloride (Ditropan Tablet) 5 mg Q12HR PO 06/09/24 22:00 06/10/24 12:27 DC 06/10/24 09:51 Valsartan (Diovan) 80 mg DAILY PO 06/10/24 10:00 06/10/24 12:27 DC 06/10/24 09:51 Docusate Sodium (Colace Capsule) 100 mg BIDPRN PRN PO FOR CONSTIPATION 06/09/24 16:30 06/10/24 12:27 DC 06/10/24 05:55 Albuterol (Ventolin Medneb) 2.5 mg Q6HWA [facility] 06/09/24 18:00 06/10/24 12:27 DC 06/10/24 06:17 Ipratropium [employer] (Atrovent Medneb) 0.5 mg Q6HWA [facility] 06/09/24 18:00 06/10/24 12:27 DC 06/10/24 06:17 Review of Systems Constitutional: Reports generalized weakness, low-grade fever, chills, denies weight loss HEENT: Denies headache, nasal/maxillary sinus congestion, rhinorrhea, lacrimation Denies conjunctival pains, denies hearing or visual deficits NECK: No symptoms of neck pains or stiffness CHEST: Reports chest pains, cough congestion, shortness of breath costochondral tenderness, RS: Reports cough, chest congestion, wheezing, shortness of breath, pleurisy CVS: Denies angina, shortness of breath, denies palpitation, : Denies heartburn, GE reflux, abdominal pains, N/V/D, melena : Denies symptoms of frequency, urgency, dysuria, hematuria BACK: Reports chronic back pains, radicular pains MS: Reports generalized aches and pains from fibromyalgia SKIN: Multiple scabbed wounds of upper and lower extremities EXTs: Multiple scabbed wounds no edema, no rash, no open wounds 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: No altered mental status, focal deficits, no GTC seizures, weakness PSYCH: bipolar disorder -denies suicidal thoughts ENDO: Denies excessive thirst or urination, denies intolerance to cold or heat HEM/ONC: No symptoms of anemia, leukemia or multiple myeloma ALLERGY no symptoms of allergy Vital Signs Vital Signs Date Time Temp Pulse Resp B/P (MAP) Pulse Ox O2 Delivery O2 Flow Rate FiO2 06/10/24 17:25 97.3 129 18 136/86 (103) 98 06/09/24 13:42 112 19 137/89 (85) 96 06/09/24 13: 42 98.6 118 12 164/77 (106) 97 06/09/24 13:12 98.6 101 10 187/80 (115) 96 06/09/24 07:45 97.8 64 18 149/77 (101) 98 Room Air* 0 21 Physical Exam General appearance: Well-developed obese built middle-aged -[place] female appears to be hypovolemic, short of breath, reports chest discomfort HEENT Head normocephalic nontraumatic, Eyes-eyeball shrunken +2 Eyes EOMI, PERRLA, conjunctiva -pale, sclera nonicteric ENT-mild nasal congestion, no hyperemia of TM, Tongue/mucous membranes wet NECK: Supple, trachea R off midline , carotid upstroke +2, JVD 1 cm, No thyroid or lymph node enlargement, no use of accessory muscles [id number] muscle tenderness present, ROM at C-spine full CHEST: Emphysematous, costochondral tenderness, Hypoventilation at bilateral bases RS: Clear breath sounds at anterior lung [place],Reduced breath sounds at bilateral bases Scattered late inspiratory wheezes, rales at posterior bases CVS: PMI-2 cm lateral to L MCL line in the sixth ICS, S1-S2/A1-A2 NSR, No gallop no murmur GI: Abdo- soft, obese +3, bowel sounds normoactive, no focal tenderness, no mass or hernia Rectal: Stool OB negative no mass normal sphincter tone Genitourinary: deferred Back: CVA tenderness minimal, bilateral lumbosacral spinal muscle tenderness present EXTs: L shoulder: Surgical wound clean, L arm held in a sling Wounds Bilateral upper extremities-multiple pigmented scabs of varying size Pulses:Distal pulses +2, no rash, no edema, capillary refill instant, Feels peripherally warm Joints: Reduced ROM at bilateral hips and knee Neuro: Awake alert oriented 3, affect depressed cognitive intact DTR +2, No focal motor deficit, changes of diabetic peripheral neuropathy, gait steady Labs/Diagnostic Data Labs Test 06/10/24 11:06 06/10/24 05:38 06/09/24 20:25 Range/Units POC Glucose 139 H 70-106 mg/dl White Blood Count 10.2 4.4-10.8 10^3/uL Red Blood Count 4.14 4.0-5.20 10^6/uL Hemoglobin 11.0 L 12.2-16.2 g/dL Hematocrit 33.2 L 36.0-46.0 % Mean Corpuscular Volume 80.3 80.0-100.0 fL Mean Corpuscular Hemoglobin 26.6 L 28.0-32.0 pg Mean Corpuscular Hemoglobin Concent 33.2 32.0-36.0 g/dL Red Cell Distribution Width 15.4 H 11.8-14.3 % Platelet Count 286 140-450 10^3/uL Mean Platelet Volume 7.7 6.9-10.8 fL Neutrophils (%) (Auto) 81.5 H 37.0-80.0 % Lymphocytes (%) (Auto) 10.7 10.0-50.0 % Monocytes (%) (Auto) 7.4 0.0-12.0 % Eosinophils (%) (Auto) 0.0 0.0-7.0 % Basophils (%) (Auto) 0.4 0.0-2.0 % Neutrophils # (Auto) 8.3 1.6-8.6 10 ^3/uL Lymphocytes # (Auto) 1.1 0.4-5.4 10 ^3/uL Monocytes # (Auto) 0.8 0-1.3 10 ^3/uL Eosinophils # (Auto) 0 0-0.8 10 ^3/uL Basophils # (Auto) 0 0-0.2 10 ^3/uL Nucleated Red Blood Cells 0.1 % Sodium Level 139 136-145 mmol/L Potassium Level 4.0 3.5-5.1 mmol/L Chloride Level 106 98-107 mmol/L Carbon Dioxide Level 26 20-31 mmol/L Anion Gap 7 5-15 Blood Urea Nitrogen 14 9-23 mg/dL Creatinine 0.71 0.550-1.02 mg/dL Glomerular Filtration Rate Calc 94 >90 mL/min BUN/Creatinine Ratio 19.7 10.0-20.0 Serum Glucose 162 H 74-106 mg/dL Calcium Level 9.4 8.7-10.4 mg/dL Total Bilirubin 0.3 0.2-1.0 mg/dL Aspartate Amino Transferase (AST) 24 13-40 U/L Alanine Aminotransferase (ALT) 13 7-40 U/L Alkaline Phosphatase 83 46-116 U/L Total Protein 6.9 5.7-8.2 g/dL Albumin 4.1 3.2-4.8 g/dL Urine Color Light-yellow Yellow Urine Clarity Clear Clear Urine pH 5.5 5.0-9.0 Urine Specific [place] 1.012 1.001-1.035 Urine Protein Negative Negative Urine Ketones 1+ H Negative Urine Blood Trace H Negative /uL Urine Nitrite Negative Negative Urine Bilirubin Negative Negative Urine Urobilinogen Normal Negative mg/dL Urine Leukocyte Esterase 2+ Negative /uL Urine RBC 4 0 - 4 /hpf Urine Microscopic WBC 18 H 0-5 /HPF Urine Squamous Epithelial Cells Few <5 /hpf Urine Bacteria None seen None Seen /hpf Urine Yeast (Budding) Occasional None Seen /hpf Urine Glucose 4+ H Normal mg/dL Assessment Comprehensive clinical assessment and treatment plans 1. Postsurgical pains at L shoulder a. Status post arthroscopic repair of L shoulder rotator cuff injury b. Status post L acromial depression 2. Transient post surgery respiratory depression 2. Uncontrolled systolic hypertension 3. Fairly well-controlled NIDDM 4. Exogenous obesity in adult with current BMI 35-40 kg per m2 Medical decision making Apparently patient tolerated arthroscopic L shoulder surgery well Postsurgical pains and transient respiratory depression are anticipated medical problems * Patient recovered from respiratory depression as she recovered from Hypersomnolence due to anesthesia * She also recovered from systolic hypertension as her postsurgical pains are being treated area * Recommended antihypertensives-valsartan * Recommend Humalog through sliding scale for management of diabetes with hyperglycemia Treatment plans 1. Agree with inpatient hospitalization 2. Incentive spirometry exercises 3. Monitor blood sugar q.i.d. a.c. and HS 4. Moderate dose Humalog through sliding scale 5. Resume Valsartan 6. Pain management with cautious safe and rational use of narcotics 7. Check CBC CMP in the morning Update the patient The patient and/or family is well informed by me about 1. Clinical impression, treatment plans, side effects of medications, course of the disease And fair prognosis 2. All patient's and concerns raised by patient or family are satisfactorily addressed by me Total time spent 100 minutes 40% of time spent interviewing the patient and physical exam 30% of time spent in gathering lab datas and imaging studies 30 % of time is spent in patient education Plan discussed with: Patient SULY CARDOZO MD Jun 10, 2024 13:48
--- NOTE | 2024-06-10 13:50 | DVHPN2 ---
Progress Note - Dictate Date Seen: Jun 10, 2024 Medical Necessity Reason Pt with a Central, PICC or Fol: No Medical Necessity Reason Postsurgical pains Subjective The patient is seen on postop day one of her receiving arthroscopic Repair of L shoulder rotator cuff injury * Postsurgical pains are coming under good control with oral narcotics * Her state of diabetes and hypertension remained under good to fair control * Patient is currently being discharged home today * Patient was given full discharge education. Overnight events are reviewed through medical chart and case discussion with patient's assigned RN while making rounds on patient on the day of service vital signs Vital Sign Date Time Temp Pulse Resp B/P (MAP) Pulse Ox O2 Delivery O2 Flow Rate FiO2 06/10/24 10:56 97 06/10/24 10:22 20 155/99 06/10/24 08:56 98.6 96 98.6 06/10/24 08:00 Room Air* 0 21 Total Intake and Output 06/09/24 06/09/24 06/10/24 15:00 23:00 07:00 Intake Total 100 ml 450 ml Balance 100 ml 450 ml objective Physical Exam General appearance: Well-developed obese built middle-aged -[place] female appears to be hypovolemic, short of breath, reports chest discomfort HEENT Head normocephalic nontraumatic, Eyes-eyeball shrunken +2 Eyes EOMI, PERRLA, conjunctiva -pale, sclera nonicteric ENT-mild nasal congestion, no hyperemia of TM, Tongue/mucous membranes wet NECK: Supple, trachea R off midline , carotid upstroke +2, JVD 1 cm, No thyroid or lymph node enlargement, no use of accessory muscles [id number] muscle tenderness present, ROM at C-spine full CHEST: Emphysematous, costochondral tenderness, Hypoventilation at bilateral bases RS: Clear breath sounds at anterior lung [place],Reduced breath sounds at bilateral bases Scattered late inspiratory wheezes, rales at posterior bases CVS: PMI-2 cm lateral to L MCL line in the sixth ICS, S1-S2/A1-A2 NSR, No gallop no murmur GI: Abdo- soft, obese +3, bowel sounds normoactive, no focal tenderness, no mass or hernia Rectal: Stool OB negative no mass normal sphincter tone Genitourinary: deferred Back: CVA tenderness minimal, bilateral lumbosacral spinal muscle tenderness present EXTs: L shoulder: Surgical wound clean, L arm held in a sling Wounds Bilateral upper extremities-multiple pigmented scabs of varying size Pulses:Distal pulses +2, no rash, no edema, capillary refill instant, Feels peripherally warm Joints: Reduced ROM at bilateral hips and knee Neuro: Awake alert oriented 3, affect depressed cognitive intact DTR +2, No focal motor deficit, changes of diabetic peripheral neuropathy, gait steady laboratory and microbiology Laboratory Tests 06/10/24 05:38 Test 06/10/24 05:38 Range/Units Serum Glucose 162 H 74-106 mg/dL Assessment/Plan Comprehensive clinical assessment and treatment plans 1. Postsurgical pains at L shoulder.................................................. Improving a. Status post arthroscopic repair of L shoulder rotator cuff injury b. Status post L acromial depression 2. Transient post surgery respiratory depression............................... Improved 2. Fairly well controlled systolic hypertension 3. Fairly well-controlled NIDDM 4. Exogenous obesity in adult with current BMI 35-40 kg per m2 Medical decision making The patient is seen on postop day one of her receiving arthroscopic L shoulder surgery She reports improvement in her postsurgical pains with help of narcotic analgesics * She has recovered from respiratory depression as she recovered from Hypersomnolence due to anesthesia * She also recovered from systolic hypertension as responds to oral valsartan As well as she recovered from postsurgical pains with help of narcotic analgesics * Recommend Humalog through sliding scale for management of diabetes with hyperglycemia * Patient is being discharged home today * Full discharge education is given * Education for long-term management of diabetes, obesity and hypertension was given * Education on the safe and retinal use of oral narcotic analgesics to prevent respiratory depression and sudden Treatment plans 1. Agree with discharge to home today 2. Recommended to continue Incentive spirometry exercises 3. Recommended oral narcotic analgesics for pain management 4. Monitor blood sugar q.i.d. a.c. and HS 4. Moderate dose Humalog through sliding scale 5. Resume Valsartan 6. Outpatient follow-up with me on 3/24/25 Update the patient The patient and/or family is well informed by me about 1. Clinical impression, treatment plans, side effects of medications, course of the disease And fair prognosis 2. All patient's and concerns raised by patient or family are satisfactorily addressed by me Total time spent 60 minutes 40% of time spent interviewing the patient and physical exam 30% of time spent in gathering lab datas and imaging studies 30 % of time is spent in patient education Prognosis Fair Dietary Evaluation Review Recommendations by RD: Decrease Calorie Intake, Protein Supplementation Comments: Recommend 1800 calorie ADA low carb low-fat high-protein diet 120 g per day Recommended aerobic cardiovascular exercises and intentional weight loss of 75 lbs Expected Outcomes/Goals: to help prevent obesity related comorbidities such as obesity hypoventilation, tachy dysrhythmia, embolic phenomenon Including pulmonary embolism, cerebral embolism, lifelong disability and sudden cardiac Plan discussed with: Patient, Spouse Total Time (mins): 60 SULY CARDOZO MD Jun 10, 2024 13:50
== END 2024-06-10 11:30 | disposition home or self-care (01) | DRG 512 ==
LOC: SUR 07:25 → OVERFLOW 16:20 → TELE-EAST 17:49
PROVIDERS: ADMIT Internal Medicine; ATTEND Internal Medicine
PROC: 0RNK4ZZ Release Left Shoulder Joint, Percutaneous Endoscopic Approach (ICD-10-PCS; 2024-06-09)
PROC: 0LQ24ZZ Repair Left Shoulder Tendon, Percutaneous Endoscopic Approach (ICD-10-PCS; principal; 2024-06-09 10:37)
DX: M75.122 Complete rotator cuff tear or rupture of left shoulder, not specified as traumatic (principal); E11.9 Type 2 diabetes mellitus without complications; I10 Essential (primary) hypertension; M79.7 Fibromyalgia; J44.9 Chronic obstructive pulmonary disease, unspecified; E78.5 Hyperlipidemia, unspecified; F41.9 Anxiety disorder, unspecified; F31.9 Bipolar disorder, unspecified; G93.89 Other specified disorders of brain; E66.09 Other obesity due to excess calories; E78.00 Pure hypercholesterolemia, unspecified; G89.29 Other chronic pain; Z96.641 Presence of right artificial hip joint; G47.10 Hypersomnia, unspecified; K21.9 Gastro-esophageal reflux disease without esophagitis; I25.10 Atherosclerotic heart disease of native coronary artery without angina pectoris; M65.912 Unspecified synovitis and tenosynovitis, left shoulder; Z98.61 Coronary angioplasty status; Z68.38 Body mass index [BMI] 38.0-38.9, adult; Z88.8 Allergy status to other drugs, medicaments and biological substances; Z79.899 Other long term (current) drug therapy; Z82.49 Family history of ischemic heart disease and other diseases of the circulatory system; Z83.3 Family history of diabetes mellitus; Z87.891 Personal history of nicotine dependence; Z79.891 Long term (current) use of opiate analgesic; Z79.84 Long term (current) use of oral hypoglycemic drugs; I25.2 Old myocardial infarction; Z86.73 Personal history of transient ischemic attack (TIA), and cerebral infarction without residual deficits; Z87.440 Personal history of urinary (tract) infections
CPT/HCPCS: 36415; 71045; 80053; 81001; 82962; 85025; 94640; A4565; C1713; G0378; J0131; J0171; J0330; J1100; J1815; J1885; J2405; J2704; J3490

== ENCOUNTER 2024-07-06 03:40 | Inpatient (IN) | payer MEDICARE, MEDICAID ==
[~2024-07-06] VITALS: Ht 165.1 cm; Wt 104.4 kg
--- NOTE | 2024-07-06 04:27 | ED.PDOC ---
History of Present Illness HPI Comments 64-year-old female ANGIE presents with a chief complaint of right knee pain x 3 days. Patient states that her knee has been unable to hold her weight and she subsequently has not been able to ambulate on her own. Patient denies history of DVT and is currently taking 20mg Oxycodone at home for the pain, but states that it has not been helping her pain. Patient is crying upon assessment. Patient's denies any injury to the right lower extremity. She was also complaining of right shoulder pain and decreased range of motion which is chronic. Chief Complaint: Lower Extremity Time Seen by MD: 04:07 Primary Care Provider: vasu Reviewed Notes: Medications, Allergies Allergies: Coded Allergies: Benzalkonium Chloride (Verified Allergy, Unknown, 07/08/18) Dupilumab (Verified Allergy, Unknown, 05/30/24) Lisinopril (Verified Allergy, Unknown, 07/08/18) Sorbitan (Verified Allergy, Unknown, 05/30/24) Home Meds Active Scripts Albuterol Sulfate (Ventolin) 2.5 Mg/0.5 Ml Nb, 2.5 MG NEB Q4HPRN PRN for 50 Days, #100 ML 1 Refill Prov:SULY CARDOZO MD 01/20/22 Reported Medications Multiple Vitamin (Multivitamins) Tab, 1 TAB PO DAILY, #90 TAB 3 Refills 05/29/24 Celecoxib (Celebrex) 200 Mg Cap, 200 MG PO HS, CAP 05/29/24 Betamethasone Dipropionate (Betamethasone Dipropionat) 0.05 % Oin, 1 APPLIC TD BID 05/29/24 Duloxetine HCl (Duloxetine HCl) 30 Mg Cap, 30 MG PO DAILY 05/29/24 Tizanidine Hydrochloride (Tizanidine Hcl) 4 Mg Tab, 4 MG PO BID 05/29/24 Oxybutynin Chloride (Oxybutynin Chloride) 5 Mg Tab, 10 MG PO DAILY 05/29/24 Oxycodone HCl (Oxycodone Hydrochloride) 20 Mg Tab, 20 MG PO Q8HPRN PRN for PAIN SCALE 7 THRU 10 05/29/24 Valsartan-Hydrochlorothiazide (Diovan Hct) 160 /12.5 Tab, 1 TAB PO DAILY 05/15/23 Aripiprazole (Aripiprazole) 10 Mg Tab, 1 TAB PO DAILY 05/15/23 Metformin Hydrochloride (Metformin Hcl Er) 750 Mg Tab, 1 TAB PO DAILY, #90 TAB 3 Refills 05/12/23 Rosuvastatin Calcium (Crestor) 20 Mg Tab, 1 TAB PO DAILY for LOWER BAD CHOLESTEROL, #30 TAB 5 Refills 04/03/22 Pantoprazole Sodium Sesquihydr (Pantoprazole Sodium) 40 Mg Tab, 40 MG PO QAM for GERD, TAB PRIOR TO BREAKFAST PER PT SHOULD STILL BE ON THIS MEDICATION EVEN THOUGH NO P/UP HISTORY IN EXTERNAL MED 11/21/21 Empagliflozin (Jardiance) 10 Mg Tab, 10 MG PO DAILY for DIABETES, TAB 11/21/21 Escitalopram Oxalate (ESCITALOPRAM OXALATE) 20 Mg Tab, 1 TAB PO DAILY for DEPRESSION, #30 TAB 5 Refills 11/21/21 Metoprolol Succinate (Metoprolol Succinate Er) 50 Mg Tab, 50 MG PO DAILY for BLOOD PRESSURE NEW DISCHARGE MED IS METOPROLOL SUCC ER 25 MG BID, BUT PATIENT HAS NOT STARTED TAKING YET AND WOULD LIKE TO BE KEPT ON 50 MG DAILY 07/12/20 Mupirocin Calcium (Topical) (MUPIROCIN) 2 % Cre, 1 APPLIC TOP BID for Skin infection PER PATIENT'S HOME MED LIST: APPLY TOPICALLY TO OPEN WOUNDS BID PT USES 2 GRAMS BID 01/18/20 Docusate Sodium (DOCQLACE) 100 Mg Cap, 100 MG PO DAILY PRN for FOR CONSTIPATION, CAP 06/04/18 Albuterol Sulfate (VENTOLIN MDI) 90 Mcg Ih, 2 PUFF IN Q6HPRN PRN for SHORTNESS OF BREATH EXTERNAL MED HX SAYS Q4HR. PATIENT USES Q6HR PRN 06/04/18 Clopidogrel Bisulfate (CLOPIDOGREL) 75 Mg Tab, 75 MG PO DAILY 06/04/18 Information Source: Patient Mode of Arrival: EMS Severity: Moderate Timing: Days Duration: Since onset Prehospital treatment: None Review of Systems: REVIEW OF SYSTEMS: No fever, no chills, HEENT: No neck pain, no blurred vision Cardiac: No chest pain. No palpitations. Lungs: No shortness of breath, GI: No abdominal pain, no vomiting Musculoskeletal: Right knee pain, right shoulder pain, left shoulder injury Skin: No rash, no wound Neuro: No headache, no dizziness, no syncope Vital Signs Vital Signs Date Time Temp Pulse Resp B/P (MAP) Pulse Ox O2 Delivery O2 Flow Rate FiO2 07/06/24 07:29 98.6 07/06/24 06:38 71 16 96 Room Air* 0 21 07/06/24 06:36 131/72 (91) Physical Exam General: Awake, alert and oriented. No acute distress. Skin: Skin in warm, dry and intact without rashes or lesions. HEENT: The head is normocephalic and atraumatic. Conjunctivae are clear without exudates or hemorrhage. Sclera is non-icteric. Neck: Normal range of motion. No JVD. Cardiac: Regular rate Respiratory: No signs of respiratory distress. No Stridor. Extremities: Right lower extremity: Right knee is warm, tender, swollen. T enderness to palpation of posterior right calf. Right shoulder: Decreased range of motion, right shoulder. Right shoulder tender to palpation. Neurological: The patient is awake, alert and oriented to person, place, and time with normal speech. Speech is clear. There is no facial asymmetry. Past Medical History PAST MEDICAL HISTORY: CAD, DM, HTN Surgical History: Hysterectomy, PTCA BACKPACKERS MANAGER History: No Pertinent BACKPACKERS MANAGER History Family History Family History: Reviewed,noncontributory to illness Social History Smoker: Non-Smoker Alcohol: Denies ETOH Use Drugs: Denies Drug Use Lives In: Home Was a procedure done? Was a procedure done?: No Differential Dx Considerations may include: Arthritis, septic arthritis, fracture, ligamentous injury, other X-Ray, Labs, Meds, VS Vital Signs Date Time Temp Pulse Resp B/P (MAP) Pulse Ox O2 Delivery O2 Flow Rate FiO2 07/06/24 07:29 98.6 07/06/24 06:38 71 16 96 Room Air* 0 21 07/06/24 06:36 98.0 71 20 131/72 (91) 96 98.0 07/06/24 03:50 98.7 62 20 123/77 (92) 95 98.7 Lab Test 07/06/24 06:37 Range/Units White Blood Count 7.6 4.4-10.8 10^3/uL Red Blood Count 4.44 4.0-5.20 10^6/uL Hemoglobin 11.2 L 12.2-16.2 g/dL Hematocrit 35.5 L 36.0-46.0 % Mean Corpuscular Volume 79.9 L 80.0-100.0 fL Mean Corpuscular Hemoglobin 25.2 L 28.0-32.0 pg Mean Corpuscular Hemoglobin Concent 31.6 L 32.0-36.0 g/dL Red Cell Distribution Width 14.5 H 11.8-14.3 % Platelet Count 313 140-450 10^3/uL Mean Platelet Volume 7.5 6.9-10.8 fL Neutrophils (%) (Auto) 53.5 37.0-80.0 % Lymphocytes (%) (Auto) 24.2 10.0-50.0 % Monocytes (%) (Auto) 17.5 H 0.0-12.0 % Eosinophils (%) (Auto) 4.2 0.0-7.0 % Basophils (%) (Auto) 0.6 0.0-2.0 % Neutrophils # (Auto) 4.1 1.6-8.6 10 ^3/uL Lymphocytes # (Auto) 1.8 0.4-5.4 10 ^3/uL Monocytes # (Auto) 1.3 0-1.3 10 ^3/uL Eosinophils # (Auto) 0.3 0-0.8 10 ^3/uL Basophils # (Auto) 0 0-0.2 10 ^3/uL Nucleated Red Blood Cells 0.1 % Sodium Level 133 L 136-145 mmol/L Potassium Level 3.9 3.5-5.1 mmol/L Chloride Level 100 98-107 mmol/L Carbon Dioxide Level 26 20-31 mmol/L Anion Gap 7 5-15 Blood Urea Nitrogen 11 9-23 mg/dL Creatinine 0.73 0.550-1.02 mg/dL Glomerular Filtration Rate Calc 91 >90 mL/min BUN/Creatinine Ratio 15.1 10.0-20.0 Serum Glucose 156 H 74-106 mg/dL Calcium Level 9.6 8.7-10.4 mg/dL Current Medications Medications (Trade) Dose Ordered Sig/Kitty Route Start Time Stop Time Status Last Admin Ketorolac Tromethamine (Toradol Injection) 30 mg ONCE ONCE IM 07/06/24 04:30 07/06/24 04:31 DC 07/06/24 06:29 Acetaminophen (Tylenol Tablet) 650 mg ONCE ONCE PO 07/06/24 04:30 07/06/24 04:31 DC 07/06/24 06:29 Time of 1ST Reevaluation: 04:37 Reevaluation 1ST: Unchanged Patient Education/Counseling: Need For Follow Up Family Education/Counseling: No Family Present Change of Shift?: Yes (599: Signed out to Dr. Cartwright pending imaging results. ) Departure 1 Departure Time of Disposition: 06:00 Impression: Primary Impression: Right knee pain Additional Impression: Right shoulder pain Disposition: 30 STILL A PATIENT Condition: Stable Critical Care Note Critical Care Time?: No Stability Stability form required: No Heart Score Heart Score: Heart Score Response (Comments) Value History N/A 0 EKG N/A 0 Age N/A 0 Risk Factors N/A 0 Troponin N/A 0 Total 0 I personally scribed for DORIS JAMESON MD ([email or web address]) on 07/06/24 at 04:27. Electronically submitted by Manuel Jewell [email or web address]). DORIS JAMESON MD Jul 06, 2024 04:27
[2024-07-06] MEDS: KETOROLAC TROMETH 30 MG/ML 1ML VIAL IM ONE (06:29)
[2024-07-06] MEDS: ACETAMINOPHEN 325 MG TAB PO ONE (06:29)
--- NOTE | 2024-07-06 06:31 | DVH ---
CLINICAL INDICATION: Left knee pain TECHNIQUE: XY L KNEE 4V XRAY Comparison: None FINDINGS/IMPRESSION: : There is no evidence of acute fracture or dislocation. Moderate tricompartmental degenerative change. Joint space chondrocalcinosis is present. Small to moderate knee joint effusion.
--- NOTE | 2024-07-06 06:31 | DVH ---
EXAM: XR Right Shoulder Complete, 2 or More Views CLINICAL INDICATION: Right shoulder pain TECHNIQUE: Two or more views of the right shoulder. COMPARISON: XY L SHOULDER 2+ VIEW XRAY on DOS: 05/15/23, XY L SHOULDER 2+ VIEW XRAY on DOS: 01/31/23, XY L SHOULDER 2+ VIEW XRAY on DOS: 01/31/23, XY L SHOULDER 2+ VIEW XRAY on DOS: 01/31/23 FINDINGS: BONES/JOINTS: Unremarkable. No acute fracture. No dislocation. SOFT TISSUES: Unremarkable. OTHER FINDINGS: . None. IMPRESSION: No acute fracture.
[2024-07-06 06:38] VITALS: PULSE 71; RESP 16; O2SAT 96
[2024-07-06 07:01] LABS: Basophils # (auto) 0 10 ^3/uL (0-0.2); Basophils % (auto) 0.6 % (0.0-2.0); Eosinophils # (auto) 0.3 10 ^3/uL (0-0.8); Eosinophils % (auto) 4.2 % (0.0-7.0); Hematocrit 35.5 % (36.0-46.0); Hemoglobin 11.2 g/dL (12.2-16.2); Lymphocytes # (auto) 1.8 10 ^3/uL (0.4-5.4); Lymphocytes % (auto) 24.2 % (10.0-50.0); Mean Corpuscular Hemoglobin 25.2 pg (28.0-32.0); Mean Corpuscular Hgb Conc. 31.6 g/dL (32.0-36.0); Mean Corpuscular Volume 79.9 fL (80.0-100.0); Monocytes # (auto) 1.3 10 ^3/uL (0-1.3); Monocytes % (auto) 17.5 % (0.0-12.0); Neutrophils # (auto) 4.1 10 ^3/uL (1.6-8.6); Neutrophils % (auto) 53.5 % (37.0-80.0); Nucleated Red Blood Cells % 0.1 %; Platelet Count (auto) 313 10^3/uL (140-450); Red Blood Cells 4.44 10^6/uL (4.0-5.20); Red Cell Distribution Width 14.5 % (11.8-14.3); White Blood Cell 7.6 10^3/uL (4.4-10.8)
[2024-07-06 07:15] LABS: Chloride 100 mmol/L (98-107); Potassium 3.9 mmol/L (3.5-5.1)
[2024-07-06 07:16] LABS: Anion Gap 7 (5-15); Calcium 9.6 mg/dL (8.7-10.4); Carbon Dioxide 26 mmol/L (20-31)
[2024-07-06 07:21] LABS: BUN/Creatinine Ratio 15.1 (10.0-20.0); Blood Urea Nitrogen 11 mg/dL (9-23)
[2024-07-06 07:22] LABS: Glucose 156 mg/dL (74-106); Sodium 133 mmol/L (136-145)
--- NOTE | 2024-07-06 09:12 | DVHHP2 ---
Patient Family History: Cardiovascular disease G8 FATHER, Onset: Diabetes mellitus FHx: cancer G8 MOTHER, Onset: Hypertension G8 MOTHER, Onset: G8 FATHER, Onset: Allergies: Coded Allergies: Benzalkonium Chloride (Verified Allergy, Unknown, 07/08/18) Dupilumab (Verified Allergy, Unknown, 05/30/24) Lisinopril (Verified Allergy, Unknown, 07/08/18) Sorbitan (Verified Allergy, Unknown, 05/30/24) Home Meds Active Scripts Albuterol Sulfate (Ventolin) 2.5 Mg/0.5 Ml Nb, 2.5 MG NEB Q4HPRN PRN for 50 Days, #100 ML 1 Refill Prov:SULY CARDOZO MD 01/20/22 Reported Medications Multiple Vitamin (Multivitamins) Tab, 1 TAB PO DAILY, #90 TAB 3 Refills 05/29/24 Celecoxib (Celebrex) 200 Mg Cap, 200 MG PO HS, CAP 05/29/24 Betamethasone Dipropionate (Betamethasone Dipropionat) 0.05 % Oin, 1 APPLIC TD BID 05/29/24 Duloxetine HCl (Duloxetine HCl) 30 Mg Cap, 30 MG PO DAILY 05/29/24 Tizanidine Hydrochloride (Tizanidine Hcl) 4 Mg Tab, 4 MG PO BID 05/29/24 Oxybutynin Chloride (Oxybutynin Chloride) 5 Mg Tab, 10 MG PO DAILY 05/29/24 Oxycodone HCl (Oxycodone Hydrochloride) 20 Mg Tab, 20 MG PO Q8HPRN PRN for PAIN SCALE 7 THRU 10 05/29/24 Valsartan-Hydrochlorothiazide (Diovan Hct) 160 /12.5 Tab, 1 TAB PO DAILY 05/15/23 Aripiprazole (Aripiprazole) 10 Mg Tab, 1 TAB PO DAILY 05/15/23 Metformin Hydrochloride (Metformin Hcl Er) 750 Mg Tab, 1 TAB PO DAILY, #90 TAB 3 Refills 05/12/23 Rosuvastatin Calcium (Crestor) 20 Mg Tab, 1 TAB PO DAILY for LOWER BAD CHOLESTEROL, #30 TAB 5 Refills 04/03/22 Pantoprazole Sodium Sesquihydr (Pantoprazole Sodium) 40 Mg Tab, 40 MG PO QAM for GERD, TAB PRIOR TO BREAKFAST PER PT SHOULD STILL BE ON THIS MEDICATION EVEN THOUGH NO P/UP HISTORY IN EXTERNAL MED 11/21/21 Empagliflozin (Jardiance) 10 Mg Tab, 10 MG PO DAILY for DIABETES, TAB 11/21/21 Escitalopram Oxalate (ESCITALOPRAM OXALATE) 20 Mg Tab, 1 TAB PO DAILY for DEPRESSION, #30 TAB 5 Refills 11/21/21 Metoprolol Succinate (Metoprolol Succinate Er) 50 Mg Tab, 50 MG PO DAILY for BLOOD PRESSURE NEW DISCHARGE MED IS METOPROLOL SUCC ER 25 MG BID, BUT PATIENT HAS NOT STARTED TAKING YET AND WOULD LIKE TO BE KEPT ON 50 MG DAILY 07/12/20 Mupirocin Calcium (Topical) (MUPIROCIN) 2 % Cre, 1 APPLIC TOP BID for Skin infection PER PATIENT'S HOME MED LIST: APPLY TOPICALLY TO OPEN WOUNDS BID PT USES 2 GRAMS BID 01/18/20 Docusate Sodium (DOCQLACE) 100 Mg Cap, 100 MG PO DAILY PRN for FOR CONSTIPATION, CAP 06/04/18 Albuterol Sulfate (VENTOLIN MDI) 90 Mcg Ih, 2 PUFF IN Q6HPRN PRN for SHORTNESS OF BREATH EXTERNAL MED HX SAYS Q4HR. PATIENT USES Q6HR PRN 06/04/18 Clopidogrel Bisulfate (CLOPIDOGREL) 75 Mg Tab, 75 MG PO DAILY 06/04/18 Vital Signs Vital Signs Date Time Temp Pulse Resp B/P (MAP) Pulse Ox O2 Delivery O2 Flow Rate FiO2 07/06/24 06:38 71 16 96 Room Air* 0 21 07/06/24 06:36 98.0 131/72 (91) 98.0 Results Labs Test 07/06/24 06:37 Range/Units White Blood Count 7.6 4.4-10.8 10^3/uL Red Blood Count 4.44 4.0-5.20 10^6/uL Hemoglobin 11.2 L 12.2-16.2 g/dL Hematocrit 35.5 L 36.0-46.0 % Mean Corpuscular Volume 79.9 L 80.0-100.0 fL Mean Corpuscular Hemoglobin 25.2 L 28.0-32.0 pg Mean Corpuscular Hemoglobin Concent 31.6 L 32.0-36.0 g/dL Red Cell Distribution Width 14.5 H 11.8-14.3 % Platelet Count 313 140-450 10^3/uL Mean Platelet Volume 7.5 6.9-10.8 fL Neutrophils (%) (Auto) 53.5 37.0-80.0 % Lymphocytes (%) (Auto) 24.2 10.0-50.0 % Monocytes (%) (Auto) 17.5 H 0.0-12.0 % Eosinophils (%) (Auto) 4.2 0.0-7.0 % Basophils (%) (Auto) 0.6 0.0-2.0 % Neutrophils # (Auto) 4.1 1.6-8.6 10 ^3/uL Lymphocytes # (Auto) 1.8 0.4-5.4 10 ^3/uL Monocytes # (Auto) 1.3 0-1.3 10 ^3/uL Eosinophils # (Auto) 0.3 0-0.8 10 ^3/uL Basophils # (Auto) 0 0-0.2 10 ^3/uL Nucleated Red Blood Cells 0.1 % Sodium Level 133 L 136-145 mmol/L Potassium Level 3.9 3.5-5.1 mmol/L Chloride Level 100 98-107 mmol/L Carbon Dioxide Level 26 20-31 mmol/L Anion Gap 7 5-15 Blood Urea Nitrogen 11 9-23 mg/dL Creatinine 0.73 0.550-1.02 mg/dL Glomerular Filtration Rate Calc 91 >90 mL/min BUN/Creatinine Ratio 15.1 10.0-20.0 Serum Glucose 156 H 74-106 mg/dL Calcium Level 9.6 8.7-10.4 mg/dL SULY CARDOZO MD Jul 06, 2024 09:12
[2024-07-06] MEDS ORDERED: ALBUTEROL SULF HFA 90MCG INH 200DOSE IN PRN (09:15)
[2024-07-06] MEDS ORDERED: NITROGLYCERIN 0.4 MG SL TAB SL PRN (09:15)
--- NOTE | 2024-07-06 09:24 | DVH ---
Bilateral lower extremity venous duplex Clinical History: Leg swelling, pain, warmth Comparison: None Technique: Duplex Doppler evaluation of the deep venous systems of both lower extremities from the common femora l veins to the popliteal veins including color Doppler and spectral/pulsed waveform analysis was perf ormed. Findings: RIGHT SIDE: The common femoral vein demonstrates appropriate compressibility and waveform variability. There is compressibility/patency of the great saphenous vein at the proximal thigh. The femoral vein demonstrates appropriate compressibility and waveform variability. The deep femoral vein demonstrates appropriate compressibility and waveform variability. The popliteal vein demonstrates appropriate compressibility and waveform variability. There is normal compressibility at the tibioperoneal trunk. LEFT SIDE: The common femoral vein demonstrates appropriate compressibility and waveform variability. There is compressibility/patency of the great saphenous vein at the proximal thigh. The femoral vein demonstrates appropriate compressibility and waveform variability. The deep femoral vein demonstrates appropriate compressibility and waveform variability. The popliteal vein demonstrates appropriate compressibility and waveform variability. There is normal compressibility at the tibioperoneal trunk. Impression: No right or left femoropopliteal venous thrombosis.
[2024-07-06 09:45] VITALS: BP 97/54; PULSE 52; RESP 17; TEMP 98.6; O2SAT 96
[2024-07-06] MEDS: METOPROLOL SUCCINATE XL 50 MG TAB PO SCH (11:28)
[2024-07-06] MEDS: DULoxetine HCL 30 MG CAP PO SCH (12:45)
[2024-07-06] MEDS: MULTIPLE VITAMIN TAB PO SCH (12:46)
[2024-07-06] MEDS: OXYBUTYNIN CHL 5 MG TAB PO SCH (12:46)
[2024-07-06] MEDS: CLOPIDOGREL BISULFATE 75 MG TAB PO SCH (12:47)
[2024-07-06] MEDS: EMPAGLIFLOZIN 10 MG TAB PO SCH (13:19)
[2024-07-06 19:30] VITALS: PULSE 51; RESP 10; O2SAT 98
[2024-07-06] MEDS: KETOROLAC TROMETH 30 MG/ML 1ML VIAL IV PRN (20:11)
[2024-07-06] MEDS: ALBUTEROL SULF 2.5 MG/0.5ML(0.5%) NEB SOLN NEB PRN (20:51)
[2024-07-06] MEDS: MORPHINE SULFATE INJ 2 MG/ml SYRG IV PRN (21:19)
[2024-07-07] VITALS (12 sets, daily range): BP systolic 120–164; BP diastolic 61–84; PULSE 63–88; RESP 16–19; TEMP 97.5–99; O2SAT 98–99
[2024-07-07 03:49] LABS: Urine Bacteria MOD /hpf (None Seen); Urine Blood 2+ /uL (Negative); Urine Budding Yeast MODERATE /hpf (None Seen); Urine Clarity Ex.Turbid (Clear); Urine Color Light-Orange (Yellow); Urine Protein, UAD TRACE (Negative); Urine Squamous Epithelial Cell FEW /hpf (<5); Urine Urobilinogen Normal (Negative); Urine WBC 66 /HPF (0-5)
[2024-07-07] MEDS: PANTOPRAZOLE 40 MG TAB PO SCH (06:31)
--- NOTE | 2024-07-07 19:47 | DVHHP2 ---
Admitting Diagnosis: Date of Service: 07/06/2024 Knee pain, shoulder pain, cf septic arthritis Patient Family History: Cardiovascular disease G8 FATHER, Onset: Diabetes mellitus FHx: cancer G8 MOTHER, Onset: Hypertension G8 MOTHER, Onset: G8 FATHER, Onset: Allergies: Coded Allergies: Benzalkonium Chloride (Verified Allergy, Unknown, 07/08/18) Dupilumab (Verified Allergy, Unknown, 05/30/24) Lisinopril (Verified Allergy, Unknown, 07/08/18) Sorbitan (Verified Allergy, Unknown, 05/30/24) Home Meds Active Scripts Albuterol Sulfate (Ventolin) 2.5 Mg/0.5 Ml Nb, 2.5 MG NEB Q4HPRN PRN for 50 Days, #100 ML 1 Refill Prov:VIJAY CHARLES MD 01/20/22 Reported Medications Multiple Vitamin (Multivitamins) Tab, 1 TAB PO DAILY, #90 TAB 3 Refills 05/29/24 Celecoxib (Celebrex) 200 Mg Cap, 200 MG PO HS, CAP 05/29/24 Betamethasone Dipropionate (Betamethasone Dipropionat) 0.05 % Oin, 1 APPLIC TD BID 05/29/24 Duloxetine HCl (Duloxetine HCl) 30 Mg Cap, 30 MG PO DAILY 05/29/24 Tizanidine Hydrochloride (Tizanidine Hcl) 4 Mg Tab, 4 MG PO BID 05/29/24 Oxybutynin Chloride (Oxybutynin Chloride) 5 Mg Tab, 10 MG PO DAILY 05/29/24 Oxycodone HCl (Oxycodone Hydrochloride) 20 Mg Tab, 20 MG PO Q8HPRN PRN for PAIN SCALE 7 THRU 10 05/29/24 Valsartan-Hydrochlorothiazide (Diovan Hct) 160 /12.5 Tab, 1 TAB PO DAILY 05/15/23 Aripiprazole (Aripiprazole) 10 Mg Tab, 1 TAB PO DAILY 05/15/23 Metformin Hydrochloride (Metformin Hcl Er) 750 Mg Tab, 1 TAB PO DAILY, #90 TAB 3 Refills 05/12/23 Rosuvastatin Calcium (Crestor) 20 Mg Tab, 1 TAB PO DAILY for LOWER BAD CHOLESTEROL, #30 TAB 5 Refills 04/03/22 Pantoprazole Sodium Sesquihydr (Pantoprazole Sodium) 40 Mg Tab, 40 MG PO QAM for GERD, TAB PRIOR TO BREAKFAST PER PT SHOULD STILL BE ON THIS MEDICATION EVEN THOUGH NO P/UP HISTORY IN EXTERNAL MED 11/21/21 Empagliflozin (Jardiance) 10 Mg Tab, 10 MG PO DAILY for DIABETES, TAB 11/21/21 Escitalopram Oxalate (ESCITALOPRAM OXALATE) 20 Mg Tab, 1 TAB PO DAILY for DEPRES REDDY, #30 TAB 5 Refills 11/21/21 Metoprolol Succinate (Metoprolol Succinate Er) 50 Mg Tab, 50 MG PO DAILY for BLOOD PRESSURE NEW DISCHARGE MED IS METOPROLOL SUCC ER 25 MG BID, BUT PATIENT HAS NOT STARTED TAKING YET AND WOULD LIKE TO BE KEPT ON 50 MG DAILY 07/12/20 Mupirocin Calcium (Topical) (MUPIROCIN) 2 % Cre, 1 APPLIC TOP BID for Skin infection PER PATIENT'S HOME MED LIST: APPLY TOPICALLY TO OPEN WOUNDS BID PT USES 2 GRAMS BID 01/18/20 Docusate Sodium (DOCQLACE) 100 Mg Cap, 100 MG PO DAILY PRN for FOR CONSTIPATION, CAP 06/04/18 Albuterol Sulfate (VENTOLIN MDI) 90 Mcg Ih, 2 PUFF IN Q6HPRN PRN for SHORTNESS OF BREATH EXTERNAL MED HX SAYS Q4HR. PATIENT USES Q6HR PRN 06/04/18 Clopidogrel Bisulfate (CLOPIDOGREL) 75 Mg Tab, 75 MG PO DAILY 06/04/18 Current Medications Current Medications Medications (Trade) Dose Ordered Sig/Kitty Route PRN Reason Start Time Stop Time Status Last Admin Pantoprazole Sodium (Protonix Tablet) 40 mg QAM PO 07/07/24 07:00 07/07/24 06:31 Vital Signs Vital Signs Date Time Temp Pulse Resp B/P (MAP) Pulse Ox O2 Delivery O2 Flow Rate FiO2 07/07/24 19:25 99 Room Air* 0 21 07/07/24 16:20 99.0 84 19 143/61 (88) 99.0 Results Labs Test 07/07/24 02:58 07/06/24 06:37 Range/Units Urine Color Light-orange Yellow Urine Clarity Ex.turbid Clear Urine pH 5.0 5.0-9.0 Urine Specific [place] 1.010 1.001-1.035 Urine Protein Trace H Negative Urine Ketones Negative Negative Urine Blood 2+ H Negative /uL Urine Nitrite Negative Negative Urine Bilirubin Negative Negative Urine Urobilinogen Normal Negative mg/dL Urine Leukocyte Esterase 3+ Negative /uL Urine RBC 93 0 - 4 /hpf Urine Microscopic WBC 66 H 0-5 /HPF Urine Squamous Epithelial Cells Few <5 /hpf Urine Bacteria Mod H None Seen /hpf Urine Yeast (Budding) Moderate None Seen /hpf Urine Glucose 4+ H Normal mg/dL White Blood Count 7.6 4.4-10.8 10^3/uL Red Blood Count 4.44 4.0-5.20 10^6/uL Hemoglobin 11.2 L 12.2-16.2 g/dL Hematocrit 35.5 L 36.0-46.0 % Mean Corpuscular Volume 79.9 L 80.0-100.0 fL Mean Corpuscular Hemoglobin 25.2 L 28.0-32.0 pg Mean Corpuscular Hemoglobin Concent 31.6 L 32.0-36.0 g/dL Red Cell Distribution Width 14.5 H 11.8-14.3 % Platelet Count 313 140-450 10^3/uL Mean Platelet Volume 7.5 6.9-10.8 fL Neutrophils (%) (Auto) 53.5 37.0-80.0 % Lymphocytes (%) (Auto) 24.2 10.0-50.0 % Monocytes (%) (Auto) 17.5 H 0.0-12.0 % Eosinophils (%) (Auto) 4.2 0.0-7.0 % Basophils (%) (Auto) 0.6 0.0-2.0 % Neutrophils # (Auto) 4.1 1.6-8.6 10 ^3/uL Lymphocytes # (Auto) 1.8 0.4-5.4 10 ^3/uL Monocytes # (Auto) 1.3 0-1.3 10 ^3/uL Eosinophils # (Auto) 0.3 0-0.8 10 ^3/uL Basophils # (Auto) 0 0-0.2 10 ^3/uL Nucleated Red Blood Cells 0.1 % Sodium Level 133 L 136-145 mmol/L Potassium Level 3.9 3.5-5.1 mmol/L Chloride Level 100 98-107 mmol/L Carbon Dioxide Level 26 20-31 mmol/L Anion Gap 7 5-15 Blood Urea Nitrogen 11 9-23 mg/dL Creatinine 0.73 0.550-1.02 mg/dL Glomerular Filtration Rate Calc 91 >90 mL/min BUN/Creatinine Ratio 15.1 10.0-20.0 Serum Glucose 156 H 74-106 mg/dL Calcium Level 9.6 8.7-10.4 mg/dL Plan ASSESSMENT AND PLAN: ID Problem List: - Eczema flare up - cf R shoulder septic arthritis - cf R knee septic arthritis - Hypertension - Diabetes - Hypercholesterolemia - Obesity - Fibromyalgia - Coronary Artery Disease (CAD) - COPD - UTI/Pyelonephritis - Potential CHF exacerbation - Potential pneumonia Assessment This is a 63-year-old female with a past medical history significant for hypertension, diabetes, hypercholesterolemia, obesity, fibromyalgia, coronary artery disease (post-PCTA in 2007), and COPD. Presenting symptoms include diffuse body weakness, R shoulder pain and R knee pain for the last two weeks and ezcematous rash diffuse with open ulcers. patient has been out of steroid medications for the last 2 weeks. Admitted for concern for septic arthritis, exacerbation of fibromyalgia, and COPD. The patient endorses worsening wheezing but no significant sputum production, no fevers or chills noted. The symptoms have been ongoing for the last three to four days. Labs reveal a white count of 7.6, hemoglobin of 10.2, platelets at 305, sodium 138, creatinine 0.58, BUN 8, and a hemoglobin A1c of 6.5. Urinalysis shows few squamous cells, pyuria (65 WBCs), 2+ leukocyte esterase, hematuria, and is negative for nitrites. Urine culture yields mixed gram-positive anastacia. Chest X- ray shows no acute cardiac process, cardiomegaly with mild CHF, and potential pneumonia. Plan: - Infection: start ceftriaxone for septic arthritis - check blood cultures - Cardiopulmonary: Monitor for CHF and COPD exacerbation, check for COVID-19 and influenza. - Pain/Fibromyalgia: Continue home medications for pain management, monitor respiratory status closely. defer to Dr Vijay Charles for ongoing management starting tomorrow - Referral: consult ID for further evaluation of septic arthritis, recommend MRI of R shoulder and R knee. - betamethasone cream for eczematous rash diffuse. consider IV steroids if non- responsive or too large an area. - Isolation Precautions: Standard precautions. - Patient Education: Discuss diagnosis and treatment plan with the patient and address any concerns. Assessment and plan were discussed with the patient as written above. Plan is subject to change pending incorporation of new incoming information/diagnostics. Updates may be added as addendum at the bottom (OR TOP) of this note. Thank you for consulting. ID will continue to follow. Please contact Infectious Disease for any further questions or concerns. Humaira Charles M.D. [facility] --- History: The patient's chart and medications were reviewed in detail, and the patient was seen and examined. History obtained from: patient. Ratna Fulton is a 63-year-old female with a past medical history significant for hypertension, diabetes, hypercholesterolemia, obesity, fibromyalgia, coronary artery disease (post-PCTA in 2007), and COPD. The patient presents with diffuse body weakness, dysuria, and suprapubic pain. Review of Systems: A complete 10-system review of systems was completed and nega tive except as noted in the HPI or here. ROS: - CONSTITUTIONAL: Denies weight loss, fever, and chills. - HEENT: Denies changes in vision and hearing. - RESPIRATORY: Endorses worsening wheezing, denies cough. - CV: Denies palpitations and chest pain. - GI: Denies abdominal pain, nausea, vomiting, and diarrhea. - : Dysuria, suprapubic pain. - MSK: Denies myalgia and joint pain. - SKIN: Denies rash and pruritus. - NEUROLOGICAL: Denies headache and syncope. - PSYCHIATRIC: Denies recent changes in mood, denies anxiety and depression. Past Medical History: - Hypertension - Diabetes - Hypercholesterolemia - Obesity - Fibromyalgia - CAD (post-PCTA 2007) - COPD Past Surgical History: - Left total hip arthroplasty - PCTA in 2007 Home Medications: - Loratadine - Albuterol - Aripiprazole - Pantoprazole - Oxycodone/acetaminophen - Gabapentin - Cordelia primer - Rosuvastatin - Metoprolol - Metformin - Docusate - Albuterol - Plavix Allergies: - Lisinopril - Benzachromium chloride. Family History: - Cardiovascular disease, diabetes in the father. - Cancer and hypertension in the mother. Social History: - Marital status: - Smoking status: Never - Alcohol use: Never - Drug use: Never - Sexual activity: Not Currently Objective: Physical Exam: - General: NAD, patient is in bed stating significant pain with movement. - Neck: Supple. No masses. - HEENT: PERRL. Normal lids and conjunctiva. Moist mucous membranes. Oropharynx without lesions, exudates, or excessive erythema. Normal appearance of the external aspects of the nose and ears. - Heart: Regular rhythm, normal rate. No murmur. No lower extremity edema. - Lungs: Normal respiratory effort. Clear to auscultation bilaterally with mild wheezing and diminished breath sounds. - Abdomen: Soft. Non-tender. Non-distended. No masses or abdominal hernia. - Msk: No digital cyanosis. Normal strength and tone in all 4 limbs. No tender joints. - Skin: Warm and dry, diffuse eczematous rash - Neuro: Alert. No facial droop or slurred speech. Extra-ocular movements intact. Sensation intact to soft touch in all 4 limbs. - Psych: Appropriate mood. Full affect. Oriented to person, place, time, and sit uation. - Lines: Peripheral IV line in the left anterior upper arm, 20 gauge. Diagnostic Studies: Available diagnostic studies were reviewed personally. Significant relevant results and findings are outlined below or addressed in the Assessment and Plan above. Pertinent Imaging: Chest X-ray: - No acute cardiac process. - Cardiomegaly with mild CHF. - Potential pneumonia. Laboratory Studies: - WBC: 7.6 - Hemoglobin: 10.2 - Platelets: 305 - Sodium: 138 - Creatinine: 0.58 - BUN: 8 - Hemoglobin A1c: 6.5 - Urinalysis: Pyuria (65 WBCs), 2+ leukocyte esterase, hematuria, negative for nitrites. - Urine Culture: Mixed gram-positive anastacia. Plan discussed with: Patient Problems List: (1) Eczema Status: Acute (2) Right shoulder pain Status: Acute (3) Right knee pain Status: Acute (4) Injury of left rotator cuff Status: Acute (5) Pain management Status: Acute (6) Acute exacerbation of chronic obstructive pulmonary disease (COPD) Status: Acute (7) Fibromyalgia affecting multiple sites Status: Chronic HUMAIRA CHARLES MD Jul 07, 2024 19:47
--- NOTE | 2024-07-07 20:43 | DVHINCON2 ---
Date of service: Jul 07, 2024 Family History: Cardiovascular disease G8 FATHER, Onset: Diabetes mellitus FHx: cancer G8 MOTHER, Onset: Hypertension G8 MOTHER, Onset: G8 FATHER, Onset: Allergies: Coded Allergies: Benzalkonium Chloride (Verified Allergy, Unknown, 07/08/18) Dupilumab (Verified Allergy, Unknown, 05/30/24) Lisinopril (Verified Allergy, Unknown, 07/08/18) Sorbitan (Verified Allergy, Unknown, 05/30/24) Home Meds Active Scripts Albuterol Sulfate (Ventolin) 2.5 Mg/0.5 Ml Nb, 2.5 MG NEB Q4HPRN PRN for 50 Days, #100 ML 1 Refill Prov:SULY CHARLES MD 01/20/22 Reported Medications Multiple Vitamin (Multivitamins) Tab, 1 TAB PO DAILY, #90 TAB 3 Refills 05/29/24 Celecoxib (Celebrex) 200 Mg Cap, 200 MG PO HS, CAP 05/29/24 Betamethasone Dipropionate (Betamethasone Dipropionat) 0.05 % Oin, 1 APPLIC TD BID 05/29/24 Duloxetine HCl (Duloxetine HCl) 30 Mg Cap, 30 MG PO DAILY 05/29/24 Tizanidine Hydrochloride (Tizanidine Hcl) 4 Mg Tab, 4 MG PO BID 05/29/24 Oxybutynin Chloride (Oxybutynin Chloride) 5 Mg Tab, 10 MG PO DAILY 05/29/24 Oxycodone HCl (Oxycodone Hydrochloride) 20 Mg Tab, 20 MG PO Q8HPRN PRN for PAIN SCALE 7 THRU 10 05/29/24 Valsartan-Hydrochlorothiazide (Diovan Hct) 160 /12.5 Tab, 1 TAB PO DAILY 05/15/23 Aripiprazole (Aripiprazole) 10 Mg Tab, 1 TAB PO DAILY 05/15/23 Metformin Hydrochloride (Metformin Hcl Er) 750 Mg Tab, 1 TAB PO DAILY, #90 TAB 3 Refills 05/12/23 Rosuvastatin Calcium (Crestor) 20 Mg Tab, 1 TAB PO DAILY for LOWER BAD CHOLESTEROL, #30 TAB 5 Refills 04/03/22 Pantoprazole Sodium Sesquihydr (Pantoprazole Sodium) 40 Mg Tab, 40 MG PO QAM for GERD, TAB PRIOR TO BREAKFAST PER PT SHOULD STILL BE ON THIS MEDICATION EVEN THOUGH NO P/UP HISTORY IN EXTERNAL MED 11/21/21 Empagliflozin (Jardiance) 10 Mg Tab, 10 MG PO DAILY for DIABETES, TAB 11/21/21 Escitalopram Oxalate (ESCITALOPRAM OXALATE) 20 Mg Tab, 1 TAB PO DAILY for DEPRESSION, #30 TAB 5 Refills 11/21/21 Metoprolol Succinate (Metoprolol Succinate Er) 50 Mg Tab, 50 MG PO DAILY for BLOOD PRESSURE NEW DISCHARGE MED IS METOPROLOL SUCC ER 25 MG BID, BUT PATIENT HAS NOT STARTED TAKING YET AND WOULD LIKE TO BE KEPT ON 50 MG DAILY 07/12/20 Mupirocin Calcium (Topical) (MUPIROCIN) 2 % Cre, 1 APPLIC TOP BID for Skin infection PER PATIENT'S HOME MED LIST: APPLY TOPICALLY TO OPEN WOUNDS BID PT USES 2 GRAMS BID 01/18/20 Docusate Sodium (DOCQLACE) 100 Mg Cap, 100 MG PO DAILY PRN for FOR CONSTIPATION, CAP 06/04/18 Albuterol Sulfate (VENTOLIN MDI) 90 Mcg Ih, 2 PUFF IN Q6HPRN PRN for SHORTNESS OF BREATH EXTERNAL MED HX SAYS Q4HR. PATIENT USES Q6HR PRN 06/04/18 Clopidogrel Bisulfate (CLOPIDOGREL) 75 Mg Tab, 75 MG PO DAILY 06/04/18 Current Medications Current Medications Medications (Trade) Dose Ordered Sig/Kitty Route PRN Reason Start Time Stop Time Status Last Admin Pantoprazole Sodium (Protonix Tablet) 40 mg QAM PO 07/07/24 07:00 07/07/24 06:31 Vital Signs Vital Signs Date Time Temp Pulse Resp B/P (MAP) Pulse Ox O2 Delivery O2 Flow Rate FiO2 07/07/24 19:25 99 Room Air* 0 21 07/07/24 16:20 99.0 84 19 143/61 (88) 99.0 Labs/Diagnostic Data Labs Test 07/07/24 02:58 07/06/24 06:37 Range/Units Urine Color Light-orange Yellow Urine Clarity Ex.turbid Clear Urine pH 5.0 5.0-9.0 Urine Specific [place] 1.010 1.001-1.035 Urine Protein Trace H Negative Urine Ketones Negative Negative Urine Blood 2+ H Negative /uL Urine Nitrite Negative Negative Urine Bilirubin Negative Negative Urine Urobilinogen Normal Negative mg/dL Urine Leukocyte Esterase 3+ Negative /uL Urine RBC 93 0 - 4 /hpf Urine Microscopic WBC 66 H 0-5 /HPF Urine Squamous Epithelial Cells Few <5 /hpf Urine Bacteria Mod H None Seen /hpf Urine Yeast (Budding) Moderate None Seen /hpf Urine Glucose 4+ H Normal mg/dL White Blood Count 7.6 4.4-10.8 10^3/uL Red Blood Count 4.44 4.0-5.20 10^6/uL Hemoglobin 11.2 L 12.2-16.2 g/dL Hematocrit 35.5 L 36.0-46.0 % Mean Corpuscular Volume 79.9 L 80.0-100.0 fL Mean Corpuscular Hemoglobin 25.2 L 28.0-32.0 pg Mean Corpuscular Hemoglobin Concent 31.6 L 32.0-36.0 g/dL Red Cell Distribution Width 14.5 H 11.8-14.3 % Platelet Count 313 140-450 10^3/uL Mean Platelet Volume 7.5 6.9-10.8 fL Neutrophils (%) (Auto) 53.5 37.0-80.0 % Lymphocytes (%) (Auto) 24.2 10.0-50.0 % Monocytes (%) (Auto) 17.5 H 0.0-12.0 % Eosinophils (%) (Auto) 4.2 0.0-7.0 % Basophils (%) (Auto) 0.6 0.0-2.0 % Neutrophils # (Auto) 4.1 1.6-8.6 10 ^3/uL Lymphocytes # (Auto) 1.8 0.4-5.4 10 ^3/uL Monocytes # (Auto) 1.3 0-1.3 10 ^3/uL Eosinophils # (Auto) 0.3 0-0.8 10 ^3/uL Basophils # (Auto) 0 0-0.2 10 ^3/uL Nucleated Red Blood Cells 0.1 % Sodium Level 133 L 136-145 mmol/L Potassium Level 3.9 3.5-5.1 mmol/L Chloride Level 100 98-107 mmol/L Carbon Dioxide Level 26 20-31 mmol/L Anion Gap 7 5-15 Blood Urea Nitrogen 11 9-23 mg/dL Creatinine 0.73 0.550-1.02 mg/dL Glomerular Filtration Rate Calc 91 >90 mL/min BUN/Creatinine Ratio 15.1 10.0-20.0 Serum Glucose 156 H 74-106 mg/dL Calcium Level 9.6 8.7-10.4 mg/dL Problems(with codes): (1) Eczema (2) Right shoulder pain (3) Right knee pain (4) Acute pyelonephritis (5) URINARY TRACT INFECTION, SITE NOT SPECIFIED (6) Fibromyalgia affecting multiple sites (7) Injury of left rotator cuff (8) Acute exacerbation of chronic obstructive pulmonary disease (COPD) (9) Pain management Plan/Recommendation ASSESSMENT AND PLAN: ID Problem List: - Hypertension - Diabetes - Hypercholesterolemia - Obesity - Fibromyalgia - Coronary Artery Disease (CAD) - COPD - UTI/Pyelonephritis - Potential CHF exacerbation - Potential pneumonia Assessment This is a 63-year-old female with a past medical history significant for hypertension, diabetes, hypercholesterolemia, obesity, fibromyalgia, coronary artery disease (post-PCTA in 2007), and COPD. Presenting symptoms include diffuse body weakness, dysuria, and suprapubic pain. Admitted for concern for UTI, pyelonephritis, exacerbation of fibromyalgia, and COPD. The patient endorses worsening wheezing but no significant sputum production, no fevers or chills noted. The symptoms have been ongoing for the last three to four days. Labs reveal a white count of 7.6, hemoglobin of 10.2, platelets at 305, sodium 138, creatinine 0.58, BUN 8, and a hemoglobin A1c of 6.5. Urinalysis shows few squamous cells, pyuria (65 WBCs), 2+ leukocyte esterase, hematuria, and is negative for nitrites. Urine culture yields mixed gram-positive anastacia. Chest X- ray shows no acute cardiac process, cardiomegaly with mild CHF, and potential pneumonia. Plan: - Infection: Start ceftriaxone for UTI/pyelonephritis. - Cardiopulmonary: Monitor for CHF and COPD exacerbation, recommend renal ultrasound, and check for COVID-19 and influenza. - Pain/Fibromyalgia: Continue home medications for pain management, monitor respiratory status closely. - Referral: Follow-up with urine culture results. - Isolation Precautions: Standard precautions. - Patient Education: Discuss diagnosis and treatment plan with the patient and address any concerns. Assessment and plan were discussed with the patient as written above. Plan is subject to change pending incorporation of new incoming information/diagnostics. Updates may be added as addendum at the bottom (OR TOP) of this note. Thank you for consulting. ID will continue to follow. Please contact Infectious Disease for any further questions or concerns. Humaira Charles M.D. [facility] --- History: The patient's chart and medications were reviewed in detail, and the patient was seen and examined. History obtained from: patient. Ratna Fulton is a 63-year-old female with a past medical history significant for hypertension, diabetes, hypercholesterolemia, obesity, fibromyalgia, coronary artery disease (post-PCTA in 2007), and COPD. The patient presents with diffuse body weakness, dysuria, and suprapubic pain. Review of Systems: A complete 10-system review of systems was completed and negative except as noted in the HPI or here. ROS: - CONSTITUTIONAL: Denies weight loss, fever, and chills. - HEENT: Denies changes in vision and hearing. - RESPIRATORY: Endorses worsening wheezing, denies cough. - CV: Denies palpitations and chest pain. - GI: Denies abdominal pain, nausea, vomiting, and diarrhea. - : Dysuria, suprapubic pain. - MSK: Denies myalgia and joint pain. - SKIN: Denies rash and pruritus. - NEUROLOGICAL: Denies headache and syncope. - PSYCHIATRIC: Denies recent changes in mood, denies anxiety and depression. Past Medical History: - Hypertension - Diabetes - Hypercholesterolemia - Obesity - Fibromyalgia - CAD (post-PCTA 2007) - COPD Past Surgical History: - Left total hip arthroplasty - PCTA in 2007 Home Medications: - Loratadine - Albuterol - Aripiprazole - Pantoprazole - Oxycodone/acetaminophen - Gabapentin - Cordelia primer - Rosuvastatin - Metoprolol - Metformin - Docusate - Albuterol - Plavix Allergies: - Lisinopril - Benzachromium chloride. Family History: - Cardiovascular disease, diabetes in the father. - Cancer and hypertension in the mother. Social History: - Marital status: - Smoking status: Never - Alcohol use: Never - Drug use: Never - Sexual activity: Not Currently Objective: Vital Signs on Arrival: - Temp: 36.5C (97.7F) - BP: 163/98 - Pulse: 70 - Resp: 20 - SpO2: 98% Physical Exam: - General: NAD, patient is in bed stating significant pain with movement. - Neck: Supple. No masses. - HEENT: PERRL. Normal lids and conjunctiva. Moist mucous membranes. Oropharynx without lesions, exudates, or excessive erythema. Normal appearance of the external aspects of the nose and ears. - Heart: Regular rhythm, normal rate. No murmur. No lower extremity edema. - Lungs: Normal respiratory effort. Clear to auscultation bilaterally with mild wheezing and diminished breath sounds. - Abdomen: Soft. Non-tender. Non-distended. No masses or abdominal hernia. - Msk: No digital cyanosis. Normal strength and tone in all 4 limbs. No tender joints. - Skin: Warm and dry, no rashes. - Neuro: Alert. No facial droop or slurred speech. Extra-ocular movements intact. Sensation intact to soft touch in all 4 limbs. - Psych: Appropriate mood. Full affect. Oriented to person, place, time, and situation. - Lines: Peripheral IV line in the left anterior upper arm, 20 gauge. Diagnostic Studies: Available diagnostic studies were reviewed personally. Significant relevant results and findings are outlined below or addressed in the Assessment and Plan above. Pertinent Imaging: Chest X-ray: - No acute cardiac process. - Cardiomegaly with mild CHF. - Potential pneumonia. Laboratory Studies: - WBC: 7.6 - Hemoglobin: 10.2 - Platelets: 305 - Sodium: 138 - Creatinine: 0.58 - BUN: 8 - Hemoglobin A1c: 6.5 - Urinalysis: Pyuria (65 WBCs), 2+ leukocyte esterase, hematuria, negative for nitrites. - Urine Culture: Mixed gram-positive anastacia. Plan discussed with: Patient HUMAIRA CHARLES MD Jul 07, 2024 20:43
[2024-07-08] VITALS (11 sets, daily range): BP systolic 138–184; BP diastolic 70–87; PULSE 68–91; RESP 16–20; TEMP 97.9–98.8; O2SAT 97–99
[2024-07-08] MEDS: BETAMETHASONE DIPROP0.05% TOPICAL CREAM 15GM TOP SCH (10:00)
--- NOTE | 2024-07-08 18:54 | DVHINCON2 ---
Consult Note Consult Consult Note Patient: 64-year-old female Reason for Consult: Right knee pain Referring Team: Hospitalist service (admitted for UTI, pyelonephritis, COPD exacerbation, and fibromyalgia) Subjective: Patient referred for evaluation of right knee pain. Reports worsening pain and swelling in the right knee. No recent trauma reported. Objective: Inspection: Moderate Swelling noted over right knee with no erythema, skin eczema noted , no open skin lesion, discharge from knee Range of Motion: 0 to 90 degrees with minimal discomfort; pain increases significantly from 90 to 110 degrees Palpation: Moderate tenderness over joint line and diffuse anterior knee Procedure:oral consent obtained Right knee arthrocentesis performed under sterile technique. Local anesthesia with 2% lidocaine without Epi 2 ml administered Approximately 35 mL of synovial fluid aspirated Samples sent for: cell count with differential, gram stain, and culture 2% Lidocaine without Epi 5 ml also injected intra-articularly post-aspiration for pain relief Assessment: Right knee effusion, etiology pending (concern for septic arthritis vs inflammatory vs reactive) Plan: Await synovial fluid analysis and culture results Recommend continued pain management by hospitalist team Monitor for fever, increasing joint pain, or systemic signs of infection Will follow up once labs return to guide further orthopedic intervention case discussed with Dr. [place] All questions answered by patient. Plan discussed with: Patient, Other (bedside Nurse, Ortho Surgeon convolute tube winder Dr. Cuba) Visit Coding Surgery Date of Service if different f: Jul 08, 2024 Billing Provider: LACEY ZARCO Surgery Visit Codes: 34948 - INP CONSULT <80 MIN LACEY ZARCO Jul 08, 2024 18:54
[2024-07-08] MEDS: MELATONIN 5 MG TAB PO ONE (21:53)
[2024-07-08] MEDS: VALSARTAN 80 MG TAB PO STA (21:54)
[2024-07-09] VITALS (12 sets, daily range): BP systolic 141–168; BP diastolic 70–91; PULSE 61–88; RESP 16–19; TEMP 97.8–98.4; O2SAT 96–100
[2024-07-09] MEDS: cloNIDine HCL 0.1 MG TAB PO ONE (01:06)
[2024-07-09] MEDS: VALSARTAN 80 MG TAB PO SCH (05:53)
--- NOTE | 2024-07-09 06:48 | DVHPN2 ---
Consult Progress Note Date Seen: Jul 08, 2024 Subjective Patient reports: Feels better (no diarrhea or rash, ongoing eczema, improved knee pain) Objective vital signs Vital Sign Date Time Temp Pulse Resp B/P (MAP) Pulse Ox O2 Delivery O2 Flow Rate FiO2 07/09/24 05:53 141/85 07/09/24 05:00 98.3 68 18 96 98.3 07/08/24 20:00 Room Air* 0 21 Total Intake and Output 07/08/24 07/08/24 07/09/24 15:00 23:00 07:00 Intake Total 300 ml 850 ml Balance 300 ml 850 ml medications Current Medications Medications Dose Ordered Sig/Kitty Route Start Time Stop Time Status Last Admin Dose Admin Nitroglycerin 0.4 mg Q5MINP PRN SL 07/06/24 09:15 Morphine Sulfate 2 mg Q30M PRN IV 07/06/24 09:15 07/07/24 04:51 2 MG Albuterol 90 mcg Q6HPRN PRN IN 07/06/24 09:15 Albuterol 2.5 mg Q4HPRN PRN NEB 07/06/24 09:15 07/06/24 20:51 2.5 MG Clopidogrel Bisulfate 75 mg DAILY PO 07/06/24 10:00 07/08/24 09:08 75 MG Docusate Sodium 100 mg DAILY PRN PO 07/06/24 09:15 Duloxetine HCl 30 mg DAILY PO 07/06/24 10:00 07/08/24 09:08 30 MG Empaglifozin 10 mg DAILY PO 07/06/24 10:00 07/08/24 10:43 10 MG Metoprolol Succinate 50 mg DAILY PO 07/06/24 10:00 07/08/24 09:09 50 MG Multivitamins 1 tab DAILY PO 07/06/24 10:00 07/08/24 09:08 1 TAB Oxybutynin Chloride 10 mg DAILY PO 07/06/24 10:00 07/08/24 09:09 10 MG Pantoprazole Sodium 40 mg QAM PO 07/07/24 07:00 07/09/24 05:53 40 MG Ketorolac Tromethamine 15 mg Q6HPRN PRN IV 07/06/24 11:15 07/11/24 11:14 07/09/24 05:07 15 MG Betamethasone Dipropion Augmented 1 applic DAILY TOP 07/08/24 10:00 07/08/24 10:00 1 APPLIC Valsartan 160 mg DAILY PO 07/09/24 06:30 07/09/24 05:53 160 MG Physical Exam General: NAD, mild distress secondary to flank pain. Neck: Supple, no masses. HEENT: PERRL. Normal lids and conjunctiva. Moist mucous membranes. Oropharynx without lesions or erythema. Normal external nose/ears. Heart: Regular rate and rhythm; no murmurs; no LE edema. Lungs: Normal respiratory effort. Clear to auscultation bilaterally; no wheezes/crackles. Abdomen: Soft. Right flank and suprapubic tenderness to palpation. Non?distended. No palpable masses or hernia. Msk: No digital cyanosis. Normal strength and tone in all four limbs. Skin: Warm, dry; no rash. Neuro: Alert and oriented 4. Cranial nerves grossly intact. No motor or sensory deficit. Psych: Appropriate mood, full affect. laboratory and microbiology Laboratory Tests 07/06/24 06:37 Test 07/06/24 06:37 Range/Units Serum Glucose 156 H 74-106 mg/dL Problem List/Assessment/Plan Problem List/Assessment/Plan Problems(with codes): (1) Eczema (2) Right shoulder pain (3) Right knee pain (4) Acute pyelonephritis (5) URINARY TRACT INFECTION, SITE NOT SPECIFIED (6) Fibromyalgia affecting multiple sites (7) Injury of left rotator cuff (8) Acute exacerbation of chronic obstructive pulmonary disease (COPD) (9) Pain management Plan/Recommendation ASSESSMENT AND PLAN: ID Problem List: - Hypertension - Diabetes - Hypercholesterolemia - Obesity - Fibromyalgia - Coronary Artery Disease (CAD) - COPD - UTI/Pyelonephritis - Potential CHF exacerbation - Potential pneumonia Assessment This is a 63-year-old female with a past medical history significant for hypertension, diabetes, hypercholesterolemia, obesity, fibromyalgia, coronary artery disease (post-PCTA in 2007), and COPD. Presenting symptoms include diffuse body weakness, dysuria, and suprapubic pain. Admitted for concern for UTI, pyelonephritis, exacerbation of fibromyalgia, and COPD. The patient endorses worsening wheezing but no significant sputum production, no fevers or chills noted. The symptoms have been ongoing for the last three to four days. Labs reveal a white count of 7.6, hemoglobin of 10.2, platelets at 305, sodium 138, creatinine 0.58, BUN 8, and a hemoglobin A1c of 6.5. Urinalysis shows few squamous cells, pyuria (65 WBCs), 2+ leukocyte esterase, hematuria, and is negative for nitrites. Urine culture yields mixed gram-positive anastacia. Chest X- ray shows no acute cardiac process, cardiomegaly with mild CHF, and potential pneumonia. Plan: - Infection: Start ceftriaxone for UTI/pyelonephritis and possible septic arthritis -pending knee effusion aspiration -> please send of bacterial culture and protein, glucose, cell count analysis. - Cardiopulmonary: Monitor for CHF and COPD exacerbation, recommend renal ultrasound, and check for COVID-19 and influenza. - Pain/Fibromyalgia: Continue home medications for pain management and titrate prn for fibromyalgia related pain, monitor respiratory status closely. - Referral: Follow-up with urine culture results. - Isolation Precautions: Standard precautions. - Patient Education: Discuss diagnosis and treatment plan with the patient and address any concerns. Assessment and plan were discussed with the patient as written above. Plan is subject to change pending incorporation of new incoming information/diagnostics. Updates may be added as addendum at the bottom (OR TOP) of this note. Thank you for consulting. ID will continue to follow. Please contact Infectious Disease for any further questions or concerns. Humaira Charles M.D. [facility] Plan discussed with: Patient Dietary Evaluation Review Comments: 1) Advance to CCHO60 + cardiac diet 2) Continue current plan of care Expected Outcomes/Goals: to meet 75% estimated needs within 7 days fu 2-3 days HUMAIRA CHARLES MD Jul 09, 2024 06:48
--- NOTE | 2024-07-09 06:49 | DVHPN2 ---
Consult Progress Note Date Seen: Jul 09, 2024 Subjective Patient reports: Feels better (tolerating diet) Objective vital signs Vital Sign Date Time Temp Pulse Resp B/P (MAP) Pulse Ox O2 Delivery O2 Flow Rate FiO2 07/09/24 05:53 141/85 07/09/24 05:00 98.3 68 18 96 98.3 07/08/24 20:00 Room Air* 0 21 Total Intake and Output 07/08/24 07/08/24 07/09/24 15:00 23:00 07:00 Intake Total 300 ml 850 ml Balance 300 ml 850 ml medications Current Medications Medications Dose Ordered Sig/Kitty Route Start Time Stop Time Status Last Admin Dose Admin Nitroglycerin 0.4 mg Q5MINP PRN SL 07/06/24 09:15 Morphine Sulfate 2 mg Q30M PRN IV 07/06/24 09:15 07/07/24 04:51 2 MG Albuterol 90 mcg Q6HPRN PRN IN 07/06/24 09:15 Albuterol 2.5 mg Q4HPRN PRN NEB 07/06/24 09:15 07/06/24 20:51 2.5 MG Clopidogrel Bisulfate 75 mg DAILY PO 07/06/24 10:00 07/08/24 09:08 75 MG Docusate Sodium 100 mg DAILY PRN PO 07/06/24 09:15 Duloxetine HCl 30 mg DAILY PO 07/06/24 10:00 07/08/24 09:08 30 MG Empaglifozin 10 mg DAILY PO 07/06/24 10:00 07/08/24 10:43 10 MG Metoprolol Succinate 50 mg DAILY PO 07/06/24 10:00 07/08/24 09:09 50 MG Multivitamins 1 tab DAILY PO 07/06/24 10:00 07/08/24 09:08 1 TAB Oxybutynin Chloride 10 mg DAILY PO 07/06/24 10:00 07/08/24 09:09 10 MG Pantoprazole Sodium 40 mg QAM PO 07/07/24 07:00 07/09/24 05:53 40 MG Ketorolac Tromethamine 15 mg Q6HPRN PRN IV 07/06/24 11:15 07/11/24 11:14 07/09/24 05:07 15 MG Betamethasone Dipropion Augmented 1 applic DAILY TOP 07/08/24 10:00 07/08/24 10:00 1 APPLIC Valsartan 160 mg DAILY PO 07/09/24 06:30 07/09/24 05:53 160 MG Physical Exam General: NAD, mild distress secondary to flank pain. Neck: Supple, no masses. HEENT: PERRL. Normal lids and conjunctiva. Moist mucous membranes. Oropharynx without lesions or erythema. Normal external nose/ears. Heart: Regular rate and rhythm; no murmurs; no LE edema. Lungs: Normal respiratory effort. Clear to auscultation bilaterally; no wheezes/crackles. Abdomen: Soft. Right flank and suprapubic tenderness to palpation. Non?distended. No palpable masses or hernia. Msk: No digital cyanosis. Normal strength and tone in all four limbs. Skin: Warm, dry; no rash. Neuro: Alert and oriented 4. Cranial nerves grossly intact. No motor or sensory deficit. Psych: Appropriate mood, full affect. laboratory and microbiology Laboratory Tests 07/06/24 06:37 Test 07/06/24 06:37 Range/Units Serum Glucose 156 H 74-106 mg/dL Problem List/Assessment/Plan Problem List/Assessment/Plan Problems(with codes): (1) Eczema (2) Right shoulder pain (3) Right knee pain (4) Acute pyelonephritis (5) URINARY TRACT INFECTION, SITE NOT SPECIFIED (6) Fibromyalgia affecting multiple sites (7) Injury of left rotator cuff (8) Acute exacerbation of chronic obstructive pulmonary disease (COPD) (9) Pain management Plan/Recommendation ASSESSMENT AND PLAN: ID Problem List: - Hypertension - Diabetes - Hypercholesterolemia - Obesity - Fibromyalgia - Coronary Artery Disease (CAD) - COPD - UTI/Pyelonephritis - Potential CHF exacerbation - Potential pneumonia Assessment This is a 63-year-old female with a past medical history significant for hypertension, diabetes, hypercholesterolemia, obesity, fibromyalgia, coronary artery disease (post-PCTA in 2007), and COPD. Presenting symptoms include diffuse body weakness, dysuria, and suprapubic pain. Admitted for concern for UTI, pyelonephritis, exacerbation of fibromyalgia, and COPD. The patient endorses worsening wheezing but no significant sputum production, no fevers or chills noted. The symptoms have been ongoing for the last three to four days. Labs reveal a white count of 7.6, hemoglobin of 10.2, platelets at 305, sodium 138, creatinine 0.58, BUN 8, and a hemoglobin A1c of 6.5. Urinalysis shows few squamous cells, pyuria (65 WBCs), 2+ leukocyte esterase, hematuria, and is negative for nitrites. Urine culture yields mixed gram-positive anastacia. Chest X- ray shows no acute cardiac process, cardiomegaly with mild CHF, and potential pneumonia. 07/08: sp Approximately 35 mL of synovial fluid aspirated Samples sent for: cell count with differential, gram stain, and culture Plan: - Infection: Start ceftriaxone for UTI/pyelonephritis and possible septic arthritis -sp knee effusion aspiration -> will fu on bacterial culture and protein, glucose, cell count analysis. - Cardiopulmonary: Monitor for CHF and COPD exacerbation, recommend renal ultrasound, and check for COVID-19 and influenza. - Pain/Fibromyalgia: Continue home medications for pain management and titrate prn for fibromyalgia related pain, monitor respiratory status closely. - Referral: Follow-up with urine culture results. - Isolation Precautions: Standard precautions. - Patient Education: Discuss diagnosis and treatment plan with the patient and address any concerns. Assessment and plan were discussed with the patient as written above. Plan is subject to change pending incorporation of new incoming information/diagnostics. Updates may be added as addendum at the bottom (OR TOP) of this note. Thank you for consulting. ID will continue to follow. Please contact Infectious Disease for any further questions or concerns. Plan discussed with: Patient Dietary Evaluation Review Comments: 1) Advance to [facility] + cardiac diet 2) Continue current plan of care Expected Outcomes/Goals: to meet 75% estimated needs within 7 days fu 2-3 days HUMAIRA CARDOZO MD Jul 09, 2024 06:49
--- NOTE | 2024-07-09 21:24 | DVHPN2 ---
Progress Note - Dictate Date Seen: Jul 07, 2024 Subjective The patient is currently being evaluated and treated for symptoms of right knee effusion Pains and difficulty in ambulation. She runs low-grade fever * Patient denies mechanical fall or sprain injuries * Patient has been referred to Dr. Ed Charles for Infectious Disease eval For possible septic arthritis * The patient was referred to Dr. Araceli Cuba for orthopedic evaluation * Concurrently patient was noted to have UTI for which she receives IV antibiotics * * Overnight events are reviewed through medical chart and case discussion with patient's assigned RN while making rounds on patient on the day of service vital signs Vital Signs Date Time Temp Pulse Resp B/P (MAP) Pulse Ox O2 Delivery O2 Flow Rate FiO2 07/07/24 19:25 99 Room Air* 0 21 07/07/24 16:20 99.0 84 19 143/61 (88) 99.0 Labs/Diagnostic Data medications Current Medications Medications Dose Ordered Sig/Kitty Route Start Time Stop Time Status Last Admin Dose Admin Nitroglycerin 0.4 mg Q5MINP PRN SL 07/06/24 09:15 Morphine Sulfate 2 mg Q30M PRN IV 07/06/24 09:15 07/07/24 04:51 2 MG Albuterol 90 mcg Q6HPRN PRN IN 07/06/24 09:15 Albuterol 2.5 mg Q4HPRN PRN NEB 07/06/24 09:15 07/09/24 14:13 2.5 MG Clopidogrel Bisulfate 75 mg DAILY PO 07/06/24 10:00 07/09/24 08:43 75 MG Docusate Sodium 100 mg DAILY PRN PO 07/06/24 09:15 Duloxetine HCl 30 mg DAILY PO 07/06/24 10:00 07/09/24 08:40 30 MG Empaglifozin 10 mg DAILY PO 07/06/24 10:00 07/09/24 08:42 10 MG Metoprolol Succinate 50 mg DAILY PO 07/06/24 10:00 07/09/24 08:41 50 MG Multivitamins 1 tab DAILY PO 07/06/24 10:00 07/09/24 08:42 1 TAB Oxybutynin Chloride 10 mg DAILY PO 07/06/24 10:00 07/09/24 08:42 10 MG Pantoprazole Sodium 40 mg QAM PO 07/07/24 07:00 07/09/24 05:53 40 MG Ketorolac Tromethamine 15 mg Q6HPRN PRN IV 07/06/24 11:15 07/11/24 11:14 07/09/24 17:21 15 MG Betamethasone Dipropion Augmented 1 applic DAILY TOP 07/08/24 10:00 07/08/24 10:00 1 APPLIC Valsartan 160 mg DAILY PO 07/09/24 06:30 07/09/24 08:41 160 MG laboratory and microbiology Laboratory Tests 07/06/24 06:37 Test 07/06/24 06:37 Range/Units Serum Glucose 156 H 74-106 mg/dL Labs Test 07/07/24 02:58 07/06/24 06:37 Range/Units Urine Color Light-orange Yellow Urine Clarity Ex.turbid Clear Urine pH 5.0 5.0-9.0 Urine Specific Nichols 1.010 1.001-1.035 Urine Protein Trace H Negative Urine Ketones Negative Negative Urine Blood 2+ H Negative /uL Urine Nitrite Negative Negative Urine Bilirubin Negative Negative Urine Urobilinogen Normal Negative mg/dL Urine Leukocyte Esterase 3+ Negative /uL Urine RBC 93 0 - 4 /hpf Urine Microscopic WBC 66 H 0-5 /HPF Urine Squamous Epithelial Cells Few <5 /hpf Urine Bacteria Mod H None Seen /hpf Urine Yeast (Budding) Moderate None Seen /hpf Urine Glucose 4+ H Normal mg/dL White Blood Count 7.6 4.4-10.8 10^3/uL Red Blood Count 4.44 4.0-5.20 10^6/uL Hemoglobin 11.2 L 12.2-16.2 g/dL Hematocrit 35.5 L 36.0-46.0 % Mean Corpuscular Volume 79.9 L 80.0-100.0 fL Mean Corpuscular Hemoglobin 25.2 L 28.0-32.0 pg Mean Corpuscular Hemoglobin Concent 31.6 L 32.0-36.0 g/dL Red Cell Distribution Width 14.5 H 11.8-14.3 % Platelet Count 313 140-450 10^3/uL Mean Platelet Volume 7.5 6.9-10.8 fL Neutrophils (%) (Auto) 53.5 37.0-80.0 % Lymphocytes (%) (Auto) 24.2 10.0-50.0 % Monocytes (%) (Auto) 17.5 H 0.0-12.0 % Eosinophils (%) (Auto) 4.2 0.0-7.0 % Basophils (%) (Auto) 0.6 0.0-2.0 % Neutrophils # (Auto) 4.1 1.6-8.6 10 ^3/uL Lymphocytes # (Auto) 1.8 0.4-5.4 10 ^3/uL Monocytes # (Auto) 1.3 0-1.3 10 ^3/uL Eosinophils # (Auto) 0.3 0-0.8 10 ^3/uL Basophils # (Auto) 0 0-0.2 10 ^3/uL Nucleated Red Blood Cells 0.1 % Sodium Level 133 L 136-145 mmol/L Potassium Level 3.9 3.5-5.1 mmol/L Chloride Level 100 98-107 mmol/L Carbon Dioxide Level 26 20-31 mmol/L Anion Gap 7 5-15 Blood Urea Nitrogen 11 9-23 mg/dL Creatinine 0.73 0.550-1.02 mg/dL Glomerular Filtration Rate Calc 91 >90 mL/min BUN/Creatinine Ratio 15.1 10.0-20.0 Serum Glucose 156 H 74-106 mg/dL Calcium Level 9.6 8.7-10.4 mg/dL ORDERING PHYSICIAN: DORIS JAMESON MD PROCEDURE(s): BLDVT - BiLat Lower DVT REASON: Leg swelling, pain, warmth ORDER NUMBER(s): [id number], ACCESSION NUMBER(s): [id number] Bilateral lower extremity venous duplex Clinical History: Leg swelling, pain, warmth Comparison: None Technique: Duplex Doppler evaluation of the deep venous systems of both lower extremities from the common femoral veins to the popliteal veins including color Doppler and spectral/pulsed waveform analysis was performed. Findings: RIGHT SIDE: The common femoral vein demonstrates appropriate compressibility and waveform variability. There is compressibility/patency of the great saphenous vein at the proximal thigh. The femoral vein demonstrates appropriate compressibility and waveform variability. The deep femoral vein demonstrates appropriate compressibility and waveform variability. The popliteal vein demonstrates appropriate compressibility and waveform variability. There is normal compressibility at the tibioperoneal trunk. LEFT SIDE: The common femoral vein demonstrates appropriate compressibility and waveform variability. There is compressibility/patency of the great saphenous vein at the proximal thigh. The femoral vein demonstrates appropriate compressibility and waveform variability. The deep femoral vein demonstrates appropriate compressibility and waveform variability. The popliteal vein demonstrates appropriate compressibility and waveform variability. There is normal compressibility at the tibioperoneal trunk. Impression: No right or left femoropopliteal venous thrombosis. ICAL INDICATION: Left knee pain TECHNIQUE: XY L KNEE 4V XRAY Comparison: None FINDINGS/IMPRESSION: : There is no evidence of acute fracture or dislocation. Moderate tricompartmental degenerative change. Joint space chondrocalcinosis is present. Small to moderate knee joint effusion. ATED BY: JACEK RICHARDSON MD DICTATED DATE/TIME: 07/06/24628 EXAM: XR Right Shoulder Complete, 2 or More Views CLINICAL INDICATION: Right shoulder pain TECHNIQUE: Two or more views of the right shoulder. COMPARISON: XY L SHOULDER 2+ VIEW XRAY on DOS: 05/15/23, XY L SHOULDER 2+ VIEW XRAY on DOS: 01/31/23, XY L SHOULDER 2+ VIEW XRAY on DOS: 01/31/23, XY L SHOULDER 2+ VIEW XRAY on DOS: 01/31/23 FINDINGS: BONES/JOINTS: Unremarkable. No acute fracture. No dislocation. SOFT TISSUES: Unremarkable. OTHER FINDINGS: . None. IMPRESSION: No acute fracture. Problem List (1) Eczema (2) Right shoulder pain (3) Right knee pain (4) Acute pyelonephritis (5) URINARY TRACT INFECTION, SITE NOT SPECIFIED (6) Fibromyalgia affecting multiple sites (7) Injury of left rotator cuff (8) Acute exacerbation of chronic obstructive pulmonary disease (COPD) (9) Pain management Dietary Evaluation Review Comments: 1) Advance to [facility]CHO60 + cardiac diet 2) Continue current plan of care Expected Outcomes/Goals: to meet 75% estimated needs within 7 days fu 2-3 days SULY CHARLES MD Jul 09, 2024 21:24
--- NOTE | 2024-07-09 21:39 | DVHPN2 ---
Progress Note - Dictate Subjective The patient is currently being evaluated and treated for symptoms of right knee effusion Pains and difficulty in ambulation. She runs low-grade fever * Patient received uneventful aspiration of right knee joint * Patient's starts feeling better at the right knee joint with improvement in the range of motion * The patient was continued on IV antibiotics as per Dr. Ed Charles for Infectious Disease eval * The patient was seen by [employer]CEIVABLE CLERK associate of Dr. Araceli Cuba for orthopedic evaluation * Concurrently patient was noted to have UTI for which she receives IV antibiotics * Patient was also noted to have uncontrolled hypertension for which I have requested to place patient on valsartan 160 mg p.o. twice a day * Added clonidine as a p.r.n. antihypertensive * * Overnight events are reviewed through medical chart and case discussion with patient's assigned RN while making rounds on patient on the day of service vital signs Vital Sign Date Time Temp Pulse Resp B/P (MAP) Pulse Ox O2 Delivery O2 Flow Rate FiO2 07/09/24 20:00 64 16 Room Air* 0 21 07/09/24 16:40 98.1 155/80 (105) 100 98.1 Total Intake and Output 07/08/24 07/08/24 07/09/24 15:00 23:00 07:00 Intake Total 300 ml 850 ml Balance 300 ml 850 ml medications Current Medications Medications Dose Ordered Sig/Kitty Route Start Time Stop Time Status Last Admin Dose Admin Nitroglycerin 0.4 mg Q5MINP PRN SL 07/06/24 09:15 Morphine Sulfate 2 mg Q30M PRN IV 07/06/24 09:15 07/07/24 04:51 2 MG Albuterol 90 mcg Q6HPRN PRN IN 07/06/24 09:15 Albuterol 2.5 mg Q4HPRN PRN NEB 07/06/24 09:15 07/09/24 14:13 2.5 MG Clopidogrel Bisulfate 75 mg DAILY PO 07/06/24 10:00 07/09/24 08:43 75 MG Docusate Sodium 100 mg DAILY PRN PO 07/06/24 09:15 Duloxetine HCl 30 mg DAILY PO 07/06/24 10:00 07/09/24 08:40 30 MG Empaglifozin 10 mg DAILY PO 07/06/24 10:00 07/09/24 08:42 10 MG Metoprolol Succinate 50 mg DAILY PO 07/06/24 10:00 07/09/24 08:41 50 MG Multivitamins 1 tab DAILY PO 07/06/24 10:00 07/09/24 08:42 1 TAB Oxybutynin Chloride 10 mg DAILY PO 07/06/24 10:00 07/09/24 08:42 10 MG Pantoprazole Sodium 40 mg QAM PO 07/07/24 07:00 07/09/24 05:53 40 MG Ketorolac Tromethamine 15 mg Q6HPRN PRN IV 07/06/24 11:15 07/11/24 11:14 07/09/24 17:21 15 MG Betamethasone Dipropion Augmented 1 applic DAILY TOP 07/08/24 10:00 07/08/24 10:00 1 APPLIC Valsartan 160 mg DAILY PO 07/09/24 06:30 07/09/24 08:41 160 MG laboratory and microbiology Laboratory Tests 07/06/24 06:37 Test 07/06/24 06:37 Range/Units Serum Glucose 156 H 74-106 mg/dL Problem List (1) Eczema (2) Right shoulder pain (3) Right knee pain (4) Acute pyelonephritis (5) URINARY TRACT INFECTION, SITE NOT SPECIFIED (6) Fibromyalgia affecting multiple sites (7) Injury of left rotator cuff (8) Acute exacerbation of chronic obstructive pulmonary disease (COPD) (9) Pain management Dietary Evaluation Review Comments: 1) Advance to [id number] + cardiac diet 2) Continue current plan of care Expected Outcomes/Goals: to meet 75% estimated needs within 7 days fu 2-3 days SULY CHARLES MD Jul 09, 2024 21:39
--- NOTE | 2024-07-09 21:54 | DVHPN2 ---
Progress Note - Dictate Date Seen: Jul 08, 2024 Subjective The patient is currently being evaluated and treated for symptoms of right knee effusion Pains and difficulty in ambulation. She runs low-grade fever * Patient received uneventful aspiration of right knee joint * Patient's starts feeling better at the right knee joint with improvement in the range of motion * The patient was continued on IV antibiotics as per Dr. Ed Charles for Infectious Disease eval * The patient was seen by [employer] associate of Dr. Araceli [place] for orthopedic evaluation * Concurrently patient was noted to have UTI for which she receives IV antibiotics * Patient was also noted to have uncontrolled hypertension for which I have requested to place patient on valsartan 160 mg p.o. twice a day * Added clonidine as a p.r.n. antihypertensive * * Overnight events are reviewed through medical chart and case discussion with patient's assigned RN while making rounds on patient on the day of service vital signs In Vital Sign Date Time Temp Pulse Resp B/P (MAP) Pulse Ox O2 Delivery O2 Flow Rate FiO2 07/08/24 21:00 98.2 70 19 184/83 (116) 99 Room Air* 0 21 07/08/24 16:25 98.7 85 18 138/87 (104 no) 97 07/08/24 12: 25 98.3 91 18 162/83 (109 97 Total Intake and Output 07/08/24 07/08/24 07/09/24 15:00 23:00 07:00 Intake Total 300 ml 850 ml Balance 300 ml 850 ml medications Current Medications Medications Dose Ordered Sig/Kitty Route Start Time Stop Time Status Last Admin Dose Admin Nitroglycerin 0.4 mg Q5MINP PRN SL 07/06/24 09:15 Morphine Sulfate 2 mg Q30M PRN IV 07/06/24 09:15 07/07/24 04:51 2 MG Albuterol 90 mcg Q6HPRN PRN IN 07/06/24 09:15 Albuterol 2.5 mg Q4HPRN PRN NEB 07/06/24 09:15 07/09/24 14:13 2.5 MG Clopidogrel Bisulfate 75 mg DAILY PO 07/06/24 10:00 07/09/24 08:43 75 MG Docusate Sodium 100 mg DAILY PRN PO 07/06/24 09:15 Duloxetine HCl 30 mg DAILY PO 07/06/24 10:00 07/09/24 08:40 30 MG Empaglifozin 10 mg DAILY PO 07/06/24 10:00 07/09/24 08:42 10 MG Metoprolol Succinate 50 mg DAILY PO 07/06/24 10:00 07/09/24 08:41 50 MG Multivitamins 1 tab DAILY PO 07/06/24 10:00 07/09/24 08:42 1 TAB Oxybutynin Chloride 10 mg DAILY PO 07/06/24 10:00 07/09/24 08:42 10 MG Pantoprazole Sodium 40 mg QAM PO 07/07/24 07:00 07/09/24 05:53 40 MG Ketorolac Tromethamine 15 mg Q6HPRN PRN IV 07/06/24 11:15 07/11/24 11:14 07/09/24 17:21 15 MG Betamethasone Dipropion Augmented 1 applic DAILY TOP 07/08/24 10:00 07/08/24 10:00 1 APPLIC Valsartan 160 mg DAILY PO 07/09/24 06:30 07/09/24 08:41 160 MG laboratory and microbiology Laboratory Tests 07/06/24 06:37 Test 07/06/24 06:37 Range/Units Serum Glucose 156 H 74-106 mg/dL Problem List (1) Eczema (2) Right shoulder pain (3) Right knee pain (4) Acute pyelonephritis (5) URINARY TRACT INFECTION, SITE NOT SPECIFIED (6) Fibromyalgia affecting multiple sites (7) Injury of left rotator cuff (8) Acute exacerbation of chronic obstructive pulmonary disease (COPD) (9) Pain management Dietary Evaluation Review Comments: 1) Advance to CCHO60 + cardiac diet 2) Continue current plan of care Expected Outcomes/Goals: to meet 75% estimated needs within 7 days fu 2-3 days SULY CHARLES MD Jul 09, 2024 21:54
--- NOTE | 2024-07-09 21:57 | DVHPN2 ---
Progress Note - Dictate Date Seen: Jul 09, 2024 Subjective The patient is currently being evaluated and treated for symptoms of right knee effusion * Patient received uneventful respiration of R knee joint * R knee joint as patient fluid was sent to lab * G stain of the sample shows WBC no bacteria * Participate in physical therapy and was able to ambulate 20 * Her R knee pains are worse increase the dose of Toradol starts feeling better at the right knee joint with improvement in the range of motion * The patient was continued on IV antibiotics as per Dr. Ed Charles for Infectious Disease eval * The patient was seen by [employer] associate of Dr. Araceli [place] for orthopedic evaluation * Concurrently patient was noted to have UTI for which she receives IV antibiotics * Patient was also noted to have uncontrolled hypertension for which I have requested to place patient on valsartan 160 mg p.o. twice a day * Added clonidine as a p.r.n. antihypertensive * * Overnight events are reviewed through medical chart and case discussion with patient's assigned RN while making rounds on patient on the day of service vital signs Vital Sign Date Time Temp Pulse Resp B/P (MAP) Pulse Ox O2 Delivery O2 Flow Rate FiO2 07/09/24 20:00 64 16 Room Air* 0 21 07/09/24 16:40 98.1 155/80 (105) 100 98.1 Total Intake and Output 07/08/24 07/08/24 07/09/24 15:00 23:00 07:00 Intake Total 300 ml 850 ml Balance 300 ml 850 ml medications Current Medications Medications Dose Ordered Sig/Kitty Route Start Time Stop Time Status Last Admin Dose Admin Nitroglycerin 0.4 mg Q5MINP PRN SL 07/06/24 09:15 Morphine Sulfate 2 mg Q30M PRN IV 07/06/24 09:15 07/07/24 04:51 2 MG Albuterol 90 mcg Q6HPRN PRN IN 07/06/24 09:15 Albuterol 2.5 mg Q4HPRN PRN NEB 07/06/24 09:15 07/09/24 14:13 2.5 MG Clopidogrel Bisulfate 75 mg DAILY PO 07/06/24 10:00 07/09/24 08:43 75 MG Docusate Sodium 100 mg DAILY PRN PO 07/06/24 09:15 Duloxetine HCl 30 mg DAILY PO 07/06/24 10:00 07/09/24 08:40 30 MG Empaglifozin 10 mg DAILY PO 07/06/24 10:00 07/09/24 08:42 10 MG Metoprolol Succinate 50 mg DAILY PO 07/06/24 10:00 07/09/24 08:41 50 MG Multivitamins 1 tab DAILY PO 07/06/24 10:00 07/09/24 08:42 1 TAB Oxybutynin Chloride 10 mg DAILY PO 07/06/24 10:00 07/09/24 08:42 10 MG Pantoprazole Sodium 40 mg QAM PO 07/07/24 07:00 07/09/24 05:53 40 MG Ketorolac Tromethamine 15 mg Q6HPRN PRN IV 07/06/24 11:15 07/11/24 11:14 07/09/24 17:21 15 MG Betamethasone Dipropion Augmented 1 applic DAILY TOP 07/08/24 10:00 07/08/24 10:00 1 APPLIC Valsartan 160 mg DAILY PO 07/09/24 06:30 07/09/24 08:41 160 MG laboratory and microbiology Laboratory Tests 07/06/24 06:37 Test 07/06/24 06:37 Range/Units Serum Glucose 156 H 74-106 mg/dL Problem List (1) Eczema (2) Right shoulder pain (3) Right knee pain (4) Acute pyelonephritis (5) URINARY TRACT INFECTION, SITE NOT SPECIFIED (6) Fibromyalgia affecting multiple sites (7) Injury of left rotator cuff (8) Acute exacerbation of chronic obstructive pulmonary disease (COPD) (9) Pain management Dietary Evaluation Review Comments: 1) Advance to CCHO60 + cardiac diet 2) Continue current plan of care Expected Outcomes/Goals: to meet 75% estimated needs within 7 days fu 2-3 days SULY CHARLES MD Jul 09, 2024 21:57
[2024-07-09] MEDS: KETOROLAC TROMETH 30 MG/ML 1ML VIAL IV PRN (22:37)
[2024-07-09 23:28] LABS: Erythrocyte Sedimentation Rate 36 mm/hr (0-20)
[2024-07-10] VITALS (13 sets, daily range): BP systolic 117–162; BP diastolic 58–83; PULSE 60–83; RESP 16–22; TEMP 97.7–98.3; O2SAT 97–100
[2024-07-10] MEDS: DOCUSATE SOD 100 MG CAP PO PRN (09:47)
[2024-07-10 10:13] LABS: Basophils # (auto) 0.1 10 ^3/uL (0-0.2); Hemoglobin 11.3 g/dL (12.2-16.2); Mean Corpuscular Volume 79.4 fL (80.0-100.0)
[2024-07-10 10:14] LABS: Basophils % (auto) 1.5 % (0.0-2.0); Eosinophils % (auto) 12.3 % (0.0-7.0); Hematocrit 35.9 % (36.0-46.0); Lymphocytes % (auto) 25.4 % (10.0-50.0); Mean Corpuscular Hgb Conc. 31.5 g/dL (32.0-36.0); Monocytes # (auto) 0.8 10 ^3/uL (0-1.3); Monocytes % (auto) 9.9 % (0.0-12.0); Neutrophils # (auto) 4.1 10 ^3/uL (1.6-8.6); Neutrophils % (auto) 50.9 % (37.0-80.0); Platelet Count (auto) 360 10^3/uL (140-450); Red Blood Cells 4.52 10^6/uL (4.0-5.20); Red Cell Distribution Width 14.5 % (11.8-14.3)
[2024-07-10 10:31] LABS: Alanine Aminotransferase 24 U/L (7-40); Albumin 4.1 g/dL (3.2-4.8); Alkaline Phosphatase 100 U/L (46-116); Anion Gap 10 (5-15); Aspartate Aminotransferase 24 U/L (13-40); BUN/Creatinine Ratio 21.6 (10.0-20.0); Blood Urea Nitrogen 22 mg/dL (9-23); Calcium 9.8 mg/dL (8.7-10.4); Carbon Dioxide 22 mmol/L (20-31); Chloride 107 mmol/L (98-107); Cholesterol 126 mg/dL (< 200); LDL Cholesterol 76 mg/dL (< 100); Magnesium 2.1 mg/dL (1.6-2.6); Potassium 4.2 mmol/L (3.5-5.1); Sodium 139 mmol/L (136-145); Total Protein 7.3 g/dL (5.7-8.2); Triglycerides 112 mg/dL (< 150)
[2024-07-10 10:32] LABS: Bilirubin, Total 0.2 mg/dL (0.2-1.0); Glucose 165 mg/dL (74-106); HDL Cholesterol 28 mg/dL (40-59); Phosphorus 3.4 mg/dL (2.4-5.1)
[2024-07-10 10:41] LABS: CRP High Sensitivity 2.28 mg/dL (<1.0)
--- NOTE | 2024-07-10 23:59 | DVHPN2 ---
Progress Note - Dictate Subjective The patient is currently being evaluated and treated for symptoms of right knee effusion * Patient received uneventful respiration of R knee joint * R knee joint as patient fluid was sent to lab * G stain of the sample shows WBC no bacteria * Participate in physical therapy and was able to ambulate 20 * Her R knee pains are worse increase the dose of Toradol starts feeling better at the right knee joint with improvement in the range of motion * The patient was continued on IV antibiotics as per Dr. Ed Charles for Infectious Disease eval * The patient was seen by [employer] associate of Dr. Araceli [place] for orthopedic evaluation * Concurrently patient was noted to have UTI for which she receives IV antibiotics * Added dilaudid for pain * Patient was also noted to have uncontrolled hypertension for which I have requested to place patient on valsartan 160 mg p.o. twice a day * Added clonidine as a p.r.n. antihypertensive * * Overnight events are reviewed through medical chart and case discussion with patient's assigned RN while making rounds on patient on the day of service vital signs Vital Sign Date Time Temp Pulse Resp B/P (MAP) Pulse Ox O2 Delivery O2 Flow Rate FiO2 07/10/24 23:15 67 20 100 07/10/24 23:08 Nasal Cannula* 2 28 07/10/24 16:58 98.0 161/82 (108) 98.0 Total Intake and Output 07/09/24 07/09/24 07/10/24 15:00 23:00 07:00 Intake Total 358 ml 850 ml 575 ml Balance 358 ml 850 ml 575 ml medications Current Medications Medications Dose Ordered Sig/Kitty Route Start Time Stop Time Status Last Admin Dose Admin Nitroglycerin 0.4 mg Q5MINP PRN SL 07/06/24 09:15 Morphine Sulfate 2 mg Q30M PRN IV 07/06/24 09:15 07/07/24 04:51 2 MG Albuterol 2.5 mg Q4HPRN PRN NEB 07/06/24 09:15 07/10/24 23:08 2.5 MG Clopidogrel Bisulfate 75 mg DAILY PO 07/06/24 10:00 07/10/24 09:47 75 MG Docusate Sodium 100 mg DAILY PRN PO 07/06/24 09:15 Duloxetine HCl 30 mg DAILY PO 07/06/24 10:00 07/10/24 09:47 30 MG Empaglifozin 10 mg DAILY PO 07/06/24 10:00 07/10/24 09:47 10 MG Metoprolol Succinate 50 mg DAILY PO 07/06/24 10:00 07/10/24 09:48 50 MG Multivitamins 1 tab DAILY PO 07/06/24 10:00 07/10/24 09:47 1 TAB Oxybutynin Chloride 10 mg DAILY PO 07/06/24 10:00 07/10/24 09:47 10 MG Pantoprazole Sodium 40 mg QAM PO 07/07/24 07:00 07/10/24 06:05 40 MG Betamethasone Dipropion Augmented 1 applic DAILY TOP 07/08/24 10:00 07/10/24 09:49 1 APPLIC Valsartan 160 mg DAILY PO 07/09/24 06:30 07/10/24 09:48 160 MG Ketorolac Tromethamine 30 mg Q6HPRN PRN IV 07/09/24 22:00 07/11/24 11:14 07/10/24 20:01 30 MG laboratory and microbiology Laboratory Tests 07/10/24 09:56 Test 07/10/24 09:56 Range/Units Serum Glucose 165 H 74-106 mg/dL Problem List (1) Eczema (2) Right shoulder pain (3) Right knee pain (4) Acute pyelonephritis (5) URINARY TRACT INFECTION, SITE NOT SPECIFIED (6) Fibromyalgia affecting multiple sites (7) Injury of left rotator cuff (8) Acute exacerbation of chronic obstructive pulmonary disease (COPD) (9) Pain management Dietary Evaluation Review Comments: 1) Advance to [facility]60 + cardiac diet 2) Continue current plan of care Expected Outcomes/Goals: to meet 75% estimated needs within 7 days fu 2-3 days SULY CHARLES MD Jul 10, 2024 23:59
[2024-07-11] VITALS (12 sets, daily range): BP systolic 126–173; BP diastolic 61–83; PULSE 57–88; RESP 16–61; TEMP 97–98.3; O2SAT 95–100
[2024-07-11] MEDS: HYDROmorphone HCL 2 MG/ML VL/or syr IV PRN (01:19)
[2024-07-11 09:46] LABS: CRP High Sensitivity 1.73 mg/dL (<1.0)
[2024-07-11 09:52] LABS: Uric Acid 4.8 mg/dL (3.1-7.8)
[2024-07-11 14:03] LABS: Urine Bacteria MANY /hpf (None Seen); Urine Blood 3+ /uL (Negative); Urine Budding Yeast LOADED /hpf (None Seen); Urine Clarity Cloudy (Clear); Urine Color Yellow (Yellow); Urine Protein, UAD 1+ (Negative); Urine Specific Gravity 1.021 (1.001-1.035); Urine Squamous Epithelial Cell MOD /hpf (<5); Urine Urobilinogen Normal (Negative); Urine WBC 2908 /HPF (0-5); Urine WBC Clumps PRESENT /hpf (None Seen)
--- NOTE | 2024-07-11 15:17 | DVH ---
CLINICAL INFORMATION: Osteoarthritis, gout. TECHNIQUE: 3 views of the right knee were obtained. COMPARISON: No prior imaging of the right knee was available for comparison at the time of dictation. FINDINGS: No acute fracture or dislocation. Moderate joint space narrowing in all 3 compartments, gre atest in the medial and patellofemoral compartments. Mild subchondral sclerosis and small marginal o steophytes. Chondrocalcinosis in the medial and lateral compartments. Small joint effusion. No signif icant soft tissue swelling visualized. IMPRESSION: 1. No evidence of acute bony abnormality. 2. Arthritic changes and chondrocalcinosis. 3. Small joint effusion.
--- NOTE | 2024-07-11 16:44 | DVHPN2 ---
Progress Note - Dictate Date Seen: Jul 11, 2024 Subjective The patient is currently being evaluated and treated for symptoms of right knee effusion * Patient received uneventful respiration of R knee joint * R knee joint as patient fluid was sent to lab * G stain of the sample shows WBC no bacteria * Participate in physical therapy and was able to ambulate 20 * Her R knee pains are worse increase the dose of Toradol starts feeling better at the right knee joint with improvement in the range of motion * The patient was continued on IV antibiotics as per Dr. Ed Charles for Infectious Disease eval * The patient was seen by [employer] associate of Dr. Araceli [place] for orthopedic evaluation * Concurrently patient was noted to have UTI for which she receives IV antibiotics * Added dilaudid for pain * Patient was also noted to have uncontrolled hypertension for which I have requested to place patient on valsartan 160 mg p.o. twice a day * Added clonidine as a p.r.n. antihypertensive * * Overnight events are reviewed through medical chart and case discussion with patient's assigned RN while making rounds on patient on the day of service vital signs Vital Sign Date Time Temp Pulse Resp B/P (MAP) Pulse Ox O2 Delivery O2 Flow Rate FiO2 07/11/24 14:47 155/70 (98) 07/11/24 13:00 97.0 80 17 96 97.0 07/11/24 10:31 Nasal Cannula 2.0 07/11/24 10:31 28 Total Intake and Output 07/10/24 07/10/24 07/11/24 15:00 23:00 07:00 Intake Total 100 ml 1020 ml 500 ml Balance 100 ml 1020 ml 500 ml medications Current Medications Medications Dose Ordered Sig/Kitty Route Start Time Stop Time Status Last Admin Dose Admin Nitroglycerin 0.4 mg Q5MINP PRN SL 07/06/24 09:15 Albuterol 2.5 mg Q4HPRN PRN NEB 07/06/24 09:15 07/11/24 11:37 2.5 MG Clopidogrel Bisulfate 75 mg DAILY PO 07/06/24 10:00 07/11/24 11:32 75 MG Docusate Sodium 100 mg DAILY PRN PO 07/06/24 09:15 Duloxetine HCl 30 mg DAILY PO 07/06/24 10:00 07/11/24 11:32 30 MG Empaglifozin 10 mg DAILY PO 07/06/24 10:00 07/11/24 11:33 10 MG Metoprolol Succinate 50 mg DAILY PO 07/06/24 10:00 07/11/24 11:32 50 MG Multivitamins 1 tab DAILY PO 07/06/24 10:00 07/11/24 11:33 1 TAB Oxybutynin Chloride 10 mg DAILY PO 07/06/24 10:00 07/11/24 11:32 10 MG Pantoprazole Sodium 40 mg QAM PO 07/07/24 07:00 07/11/24 06:24 40 MG Betamethasone Dipropion Augmented 1 applic DAILY TOP 07/08/24 10:00 07/11/24 11:31 1 APPLIC Valsartan 160 mg DAILY PO 07/09/24 06:30 07/11/24 11:33 160 MG Hydromorphone HCl 0.8 mg Q6HP PRN IV 07/11/24 00:00 07/11/24 11:31 0.8 MG laboratory and microbiology Laboratory Tests 07/10/24 09:56 Test 07/10/24 09:56 Range/Units Serum Glucose 165 H 74-106 mg/dL Problem List (1) Eczema (2) Right shoulder pain (3) Right knee pain (4) Acute pyelonephritis (5) URINARY TRACT INFECTION, SITE NOT SPECIFIED (6) Fibromyalgia affecting multiple sites (7) Injury of left rotator cuff (8) Acute exacerbation of chronic obstructive pulmonary disease (COPD) (9) Pain management Dietary Evaluation Review Comments: 1) Advance to CCHO60 + cardiac diet 2) Continue current plan of care Expected Outcomes/Goals: to meet 75% estimated needs within 7 days fu 2-3 days SULY CHARLES MD Jul 11, 2024 16:44
[2024-07-11] MEDS: SULFAMETH-TRIMETH 80/16MG-ML 10 ML in D5W 5% 250 ML IV SCH (23:19)
[2024-07-12] VITALS (11 sets, daily range): BP systolic 117–165; BP diastolic 53–85; PULSE 71–97; RESP 16–97; TEMP 97.8–98.4; O2SAT 95–100
[2024-07-12] MEDS: diphenhdrAMINE HCL 25 MG CAP PO PRN (18:30)
--- NOTE | 2024-07-12 21:50 | DVHPN2 ---
Consult Progress Note Date Seen: Jul 10, 2024 Subjective Patient reports: Feels better (pain mildly improved), Other (endorsing some diffuse pains , worse on the right shoulder and leg . patient tolerating ceftriaxone but has a diffuse exematus rash that appears to be improving and coated in beta medicine cream ) Objective vital signs Vital Sign Date Time Temp Pulse Resp B/P (MAP) Pulse Ox O2 Delivery O2 Flow Rate FiO2 07/12/24 21:00 98.1 75 18 117/53 (74) 99 98.1 07/12/24 13:39 Nasal Cannula 1.0 07/12/24 13:39 24 Total Intake and Output 07/11/24 07/11/24 07/12/24 15:00 23:00 07:00 Intake Total 800 ml 1010 ml Balance 800 ml 1010 ml medications Current Medications Medications Dose Ordered Sig/Kitty Route Start Time Stop Time Status Last Admin Dose Admin Nitroglycerin 0.4 mg Q5MINP PRN SL 07/06/24 09:15 Albuterol 2.5 mg Q4HPRN PRN NEB 07/06/24 09:15 07/12/24 13:39 2.5 MG Clopidogrel Bisulfate 75 mg DAILY PO 07/06/24 10:00 07/12/24 11:43 75 MG Docusate Sodium 100 mg DAILY PRN PO 07/06/24 09:15 Duloxetine HCl 30 mg DAILY PO 07/06/24 10:00 07/12/24 11:42 30 MG Empaglifozin 10 mg DAILY PO 07/06/24 10:00 07/12/24 11:44 10 MG Metoprolol Succinate 50 mg DAILY PO 07/06/24 10:00 07/12/24 11:43 50 MG Multivitamins 1 tab DAILY PO 07/06/24 10:00 07/12/24 11:43 1 TAB Oxybutynin Chloride 10 mg DAILY PO 07/06/24 10:00 07/12/24 11:44 10 MG Pantoprazole Sodium 40 mg QAM PO 07/07/24 07:00 07/12/24 05:57 40 MG Betamethasone Dipropion Augmented 1 applic DAILY TOP 07/08/24 10:00 07/12/24 11:42 1 APPLIC Valsartan 160 mg DAILY PO 07/09/24 06:30 07/12/24 11:42 160 MG Hydromorphone HCl 0.8 mg Q6HP PRN IV 07/11/24 00:00 07/12/24 15:23 0.8 MG Trimethoprim/ Sulfamethoxazole 10 ml/Dextrose 260 ml @ 173.333 mls/hr Q8HR IV 07/11/24 22:00 07/12/24 21:19 173.333 MLS/HR Diphenhydramine HCl 25 mg Q6HP PRN PO 07/12/24 17:30 07/12/24 18:30 25 MG Physical Exam General: NAD, mild distress secondary to flank pain. Neck: Supple, no masses. HEENT: PERRL. Normal lids and conjunctiva. Moist mucous membranes. Oropharynx without lesions or erythema. Normal external nose/ears. Heart: Regular rate and rhythm; no murmurs; no LE edema. Lungs: Normal respiratory effort. Clear to auscultation bilaterally; no wheezes/crackles. Abdomen: Soft. Right flank and suprapubic tenderness to palpation. Non?distended. No palpable masses or hernia. Msk: No digital cyanosis. Normal strength and tone in all four limbs. Skin: Warm, dry; no rash. Neuro: Alert and oriented 4. Cranial nerves grossly intact. No motor or sensory deficit. Psych: Appropriate mood, full affect. laboratory and microbiology Laboratory Tests 07/10/24 09:56 Test 07/10/24 09:56 Range/Units Serum Glucose 165 H 74-106 mg/dL Problem List/Assessment/Plan Problems(with codes): (1) Acute coronary syndrome (2) Acute chest pain (3) NSTEMI (non-ST elevated myocardial infarction) (4) Right shoulder pain (5) Acute pyelonephritis (6) URINARY TRACT INFECTION, SITE NOT SPECIFIED (7) Injury of left rotator cuff Problem List/Assessment/Plan Problems(with codes): (1) Eczema (2) Right shoulder pain (3) Right knee pain (4) Acute pyelonephritis (5) URINARY TRACT INFECTION, SITE NOT SPECIFIED (6) Fibromyalgia affecting multiple sites (7) Injury of left rotator cuff (8) Acute exacerbation of chronic obstructive pulmonary disease (COPD) (9) Pain management Plan/Recommendation ASSESSMENT AND PLAN: ID Problem List: - Hypertension - Diabetes - Hypercholesterolemia - Obesity - Fibromyalgia - Coronary Artery Disease (CAD) - COPD - UTI/Pyelonephritis - Potential CHF exacerbation - Potential pneumonia Assessment This is a 63-year-old female with a past medical history significant for hypertension, diabetes, hypercholesterolemia, obesity, fibromyalgia, coronary artery disease (post-PCTA in 2007), and COPD. Presenting symptoms include diffuse body weakness, dysuria, and suprapubic pain. Admitted for concern for UTI, pyelonephritis, exacerbation of fibromyalgia, and COPD. The patient endorses worsening wheezing but no significant sputum production, no fevers or chills noted. The symptoms have been ongoing for the last three to four days. Labs reveal a white count of 7.6, hemoglobin of 10.2, platelets at 305, sodium 138, creatinine 0.58, BUN 8, and a hemoglobin A1c of 6.5. Urinalysis shows few squamous cells, pyuria (65 WBCs), 2+ leukocyte esterase, hematuria, and is negative for nitrites. Urine culture yields mixed gram-positive anastacia. Chest X- ray shows no acute cardiac process, cardiomegaly with mild CHF, and potential pneumonia. 07/08: sp Approximately 35 mL of synovial fluid aspirated Samples sent for: cell count with differential, gram stain, and culture 07/10: Tolerating beta medicine cream and rash is improving , leukocytosis is improving and S/P evaluation by orthopedic surgery for right knee aspiration , however unable to pull up any fluid analysis of knee aspirate Plan: - follow up on knee aspirate cultures - defer management of pain in right knee and shoulder to orthopedic team and primary team - Continue ceftriaxone for UTI/pyelonephritis and possible septic arthritis -sp knee effusion aspiration -> will fu on bacterial culture and protein, glucose, cell count analysis. - Cardiopulmonary: Monitor for CHF and COPD exacerbation, recommend renal ultrasound, and check for COVID-19 and influenza. - Pain/Fibromyalgia: Continue home medications for pain management and titrate prn for fibromyalgia related pain, monitor respiratory status closely. - Referral: Follow-up with urine culture results. - Isolation Precautions: Standard precautions. - Patient Education: Discuss diagnosis and treatment plan with the patient and address any concerns. Assessment and plan were discussed with the patient as written above. Plan is subject to change pending incorporation of new incoming information/diagnostics. Updates may be added as addendum at the bottom (OR TOP) of this note. Thank you for consulting. ID will continue to follow. Please contact Infectious Disease for any further questions or concerns. Plan discussed with: Other Dietary Evaluation Review Comments: 1) Advance to CCHO60 + cardiac diet 2) Continue current plan of care Expected Outcomes/Goals: to meet 75% estimated needs within 7 days fu 2-3 days HUMAIRA CARDOZO MD Jul 12, 2024 21:50
--- NOTE | 2024-07-12 21:50 | DVHPN2 ---
Consult Progress Note Date Seen: Jul 12, 2024 Subjective Patient reports: Other Objective vital signs Vital Sign Date Time Temp Pulse Resp B/P (MAP) Pulse Ox O2 Delivery O2 Flow Rate FiO2 07/12/24 21:00 98.1 75 18 117/53 (74) 99 98.1 07/12/24 13:39 Nasal Cannula 1.0 07/12/24 13:39 24 Total Intake and Output 07/11/24 07/11/24 07/12/24 15:00 23:00 07:00 Intake Total 800 ml 1010 ml Balance 800 ml 1010 ml medications Current Medications Medications Dose Ordered Sig/Kitty Route Start Time Stop Time Status Last Admin Dose Admin Nitroglycerin 0.4 mg Q5MINP PRN SL 07/06/24 09:15 Albuterol 2.5 mg Q4HPRN PRN NEB 07/06/24 09:15 07/12/24 13:39 2.5 MG Clopidogrel Bisulfate 75 mg DAILY PO 07/06/24 10:00 07/12/24 11:43 75 MG Docusate Sodium 100 mg DAILY PRN PO 07/06/24 09:15 Duloxetine HCl 30 mg DAILY PO 07/06/24 10:00 07/12/24 11:42 30 MG Empaglifozin 10 mg DAILY PO 07/06/24 10:00 07/12/24 11:44 10 MG Metoprolol Succinate 50 mg DAILY PO 07/06/24 10:00 07/12/24 11:43 50 MG Multivitamins 1 tab DAILY PO 07/06/24 10:00 07/12/24 11:43 1 TAB Oxybutynin Chloride 10 mg DAILY PO 07/06/24 10:00 07/12/24 11:44 10 MG Pantoprazole Sodium 40 mg QAM PO 07/07/24 07:00 07/12/24 05:57 40 MG Betamethasone Dipropion Augmented 1 applic DAILY TOP 07/08/24 10:00 07/12/24 11:42 1 APPLIC Valsartan 160 mg DAILY PO 07/09/24 06:30 07/12/24 11:42 160 MG Hydromorphone HCl 0.8 mg Q6HP PRN IV 07/11/24 00:00 07/12/24 15:23 0.8 MG Trimethoprim/ Sulfamethoxazole 10 ml/Dextrose 260 ml @ 173.333 mls/hr Q8HR IV 07/11/24 22:00 07/12/24 21:19 173.333 MLS/HR Diphenhydramine HCl 25 mg Q6HP PRN PO 07/12/24 17:30 07/12/24 18:30 25 MG Physical Exam General: NAD, mild distress secondary to flank pain. Neck: Supple, no masses. HEENT: PERRL. Normal lids and conjunctiva. Moist mucous membranes. Oropharynx without lesions or erythema. Normal external nose/ears. Heart: Regular rate and rhythm; no murmurs; no LE edema. Lungs: Normal respiratory effort. Clear to auscultation bilaterally; no wheezes/crackles. Abdomen: Soft. Right flank and suprapubic tenderness to palpation. Non?distended. No palpable masses or hernia. Msk: No digital cyanosis. Normal strength and tone in all four limbs. Skin: Warm, dry; no rash. Neuro: Alert and oriented 4. Cranial nerves grossly intact. No motor or sensory deficit. Psych: Appropriate mood, full affect. laboratory and microbiology Laboratory Tests 07/10/24 09:56 Test 07/10/24 09:56 Range/Units Serum Glucose 165 H 74-106 mg/dL Problem List/Assessment/Plan Problems(with codes): (1) NSTEMI (non-ST elevated myocardial infarction) (2) Acute chest pain (3) Acute coronary syndrome (4) URINARY TRACT INFECTION, SITE NOT SPECIFIED (5) Acute pyelonephritis (6) Fibromyalgia affecting multiple sites Problem List/Assessment/Plan Problems(with codes): (1) Eczema (2) Right shoulder pain (3) Right knee pain (4) Acute pyelonephritis (5) URINARY TRACT INFECTION, SITE NOT SPECIFIED (6) Fibromyalgia affecting multiple sites (7) Injury of left rotator cuff (8) Acute exacerbation of chronic obstructive pulmonary disease (COPD) (9) Pain management Plan/Recommendation ASSESSMENT AND PLAN: ID Problem List: - Hypertension - Diabetes - Hypercholesterolemia - Obesity - Fibromyalgia - Coronary Artery Disease (CAD) - COPD - UTI/Pyelonephritis - Potential CHF exacerbation - Potential pneumonia Assessment This is a 63-year-old female with a past medical history significant for hypertension, diabetes, hypercholesterolemia, obesity, fibromyalgia, coronary artery disease (post-PCTA in 2007), and COPD. Presenting symptoms include diffuse body weakness, dysuria, and suprapubic pain. Admitted for concern for UTI, pyelonephritis, exacerbation of fibromyalgia, and COPD. The patient endorses worsening wheezing but no significant sputum production, no fevers or chills noted. The symptoms have been ongoing for the last three to four days. Labs reveal a white count of 7.6, hemoglobin of 10.2, platelets at 305, sodium 138, creatinine 0.58, BUN 8, and a hemoglobin A1c of 6.5. Urinalysis shows few squamous cells, pyuria (65 WBCs), 2+ leukocyte esterase, hematuria, and is negative for nitrites. Urine culture yields mixed gram-positive anastacia. Chest X- ray shows no acute cardiac process, cardiomegaly with mild CHF, and potential pneumonia. 07/08: sp Approximately 35 mL of synovial fluid aspirated Samples sent for: cell count with differential, gram stain, and culture 07/10: Tolerating beta medicine cream and rash is improving , leukocytosis is improving and S/P evaluation by orthopedic surgery for right knee aspiration , however unable to pull up any fluid analysis of knee aspirate 07/11: Patient is suspected to having UTI and would confirm with urine culture and consider exchange of koch catheter 07/12: Patient has a UTI with E Coli that is mccabe sensitive with exception of levoqin and ciprofloxacin Plan: - continue IV Bactrum - monitor renal function closely - when ready for discharge recommend treating with oral bactrum 1 double strength daily x7 days - stop ceftriaxone - recommend exchange of koch catheter and check urine culture after catheter has been exchanged - follow up on knee aspirate cultures - defer management of pain in right knee and shoulder to orthopedic team and primary team -sp knee effusion aspiration -> will fu on bacterial culture and protein, glucose, cell count analysis. - Cardiopulmonary: Monitor for CHF and COPD exacerbation, recommend renal ultrasound, and check for COVID-19 and influenza. - Pain/Fibromyalgia: Continue home medications for pain management and titrate prn for fibromyalgia related pain, monitor respiratory status closely. - Referral: Follow-up with urine culture results. - Isolation Precautions: Standard precautions. - Patient Education: Discuss diagnosis and treatment plan with the patient and address any concerns. Assessment and plan were discussed with the patient as written above. Plan is subject to change pending incorporation of new incoming information/diagnostics. Updates may be added as addendum at the bottom (OR TOP) of this note. Thank you for consulting. ID will continue to follow. Please contact Infectious Disease for any further questions or concerns. Plan discussed with: Other Dietary Evaluation Review Comments: 1) Advance to [facility] + cardiac diet 2) Continue current plan of care Expected Outcomes/Goals: to meet 75% estimated needs within 7 days fu 2-3 days HUMAIRA CARDOZO MD Jul 12, 2024 21:50
--- NOTE | 2024-07-12 21:50 | DVHPN2 ---
Consult Progress Note Date Seen: Jul 11, 2024 Subjective Patient reports: Other (expressing dysuria and cloudy urine , has koch cath in place and placed during admission with some superpubic tenderness ) Objective vital signs Vital Sign Date Time Temp Pulse Resp B/P (MAP) Pulse Ox O2 Delivery O2 Flow Rate FiO2 07/12/24 21:00 98.1 75 18 117/53 (74) 99 98.1 07/12/24 13:39 Nasal Cannula 1.0 07/12/24 13:39 24 Total Intake and Output 07/11/24 07/11/24 07/12/24 15:00 23:00 07:00 Intake Total 800 ml 1010 ml Balance 800 ml 1010 ml medications Current Medications Medications Dose Ordered Sig/Kitty Route Start Time Stop Time Status Last Admin Dose Admin Nitroglycerin 0.4 mg Q5MINP PRN SL 07/06/24 09:15 Albuterol 2.5 mg Q4HPRN PRN NEB 07/06/24 09:15 07/12/24 13:39 2.5 MG Clopidogrel Bisulfate 75 mg DAILY PO 07/06/24 10:00 07/12/24 11:43 75 MG Docusate Sodium 100 mg DAILY PRN PO 07/06/24 09:15 Duloxetine HCl 30 mg DAILY PO 07/06/24 10:00 07/12/24 11:42 30 MG Empaglifozin 10 mg DAILY PO 07/06/24 10:00 07/12/24 11:44 10 MG Metoprolol Succinate 50 mg DAILY PO 07/06/24 10:00 07/12/24 11:43 50 MG Multivitamins 1 tab DAILY PO 07/06/24 10:00 07/12/24 11:43 1 TAB Oxybutynin Chloride 10 mg DAILY PO 07/06/24 10:00 07/12/24 11:44 10 MG Pantoprazole Sodium 40 mg QAM PO 07/07/24 07:00 07/12/24 05:57 40 MG Betamethasone Dipropion Augmented 1 applic DAILY TOP 07/08/24 10:00 07/12/24 11:42 1 APPLIC Valsartan 160 mg DAILY PO 07/09/24 06:30 07/12/24 11:42 160 MG Hydromorphone HCl 0.8 mg Q6HP PRN IV 07/11/24 00:00 07/12/24 15:23 0.8 MG Trimethoprim/ Sulfamethoxazole 10 ml/Dextrose 260 ml @ 173.333 mls/hr Q8HR IV 07/11/24 22:00 07/12/24 21:19 173.333 MLS/HR Diphenhydramine HCl 25 mg Q6HP PRN PO 07/12/24 17:30 07/12/24 18:30 25 MG Physical Exam General: NAD, mild distress secondary to flank pain. Neck: Supple, no masses. HEENT: PERRL. Normal lids and conjunctiva. Moist mucous membranes. Oropharynx without lesions or erythema. Normal external nose/ears. Heart: Regular rate and rhythm; no murmurs; no LE edema. Lungs: Normal respiratory effort. Clear to auscultation bilaterally; no wheezes/crackles. Abdomen: Soft. Right flank and suprapubic tenderness to palpation. Non?distended. No palpable masses or hernia. Msk: No digital cyanosis. Normal strength and tone in all four limbs. Skin: Warm, dry; no rash. Neuro: Alert and oriented 4. Cranial nerves grossly intact. No motor or sensory deficit. Psych: Appropriate mood, full affect. laboratory and microbiology Laboratory Tests 07/10/24 09:56 Test 07/10/24 09:56 Range/Units Serum Glucose 165 H 74-106 mg/dL Problem List/Assessment/Plan Problems(with codes): (1) NSTEMI (non-ST elevated myocardial infarction) (2) Acute coronary syndrome (3) Acute chest pain (4) URINARY TRACT INFECTION, SITE NOT SPECIFIED (5) Acute pyelonephritis (6) Fibromyalgia affecting multiple sites Problem List/Assessment/Plan Problems(with codes): (1) Eczema (2) Right shoulder pain (3) Right knee pain (4) Acute pyelonephritis (5) URINARY TRACT INFECTION, SITE NOT SPECIFIED (6) Fibromyalgia affecting multiple sites (7) Injury of left rotator cuff (8) Acute exacerbation of chronic obstructive pulmonary disease (COPD) (9) Pain management Plan/Recommendation ASSESSMENT AND PLAN: ID Problem List: - Hypertension - Diabetes - Hypercholesterolemia - Obesity - Fibromyalgia - Coronary Artery Disease (CAD) - COPD - UTI/Pyelonephritis - Potential CHF exacerbation - Potential pneumonia Assessment This is a 63-year-old female with a past medical history significant for hypertension, diabetes, hypercholesterolemia, obesity, fibromyalgia, coronary artery disease (post-PCTA in 2007), and COPD. Presenting symptoms include diffuse body weakness, dysuria, and suprapubic pain. Admitted for concern for UTI, pyelonephritis, exacerbation of fibromyalgia, and COPD. The patient endorses worsening wheezing but no significant sputum production, no fevers or chills noted. The symptoms have been ongoing for the last three to four days. Labs reveal a white count of 7.6, hemoglobin of 10.2, platelets at 305, sodium 138, creatinine 0.58, BUN 8, and a hemoglobin A1c of 6.5. Urinalysis shows few squamous cells, pyuria (65 WBCs), 2+ leukocyte esterase, hematuria, and is negative for nitrites. Urine culture yields mixed gram-positive anastacia. Chest X- ray shows no acute cardiac process, cardiomegaly with mild CHF, and potential pneumonia. 07/08: sp Approximately 35 mL of synovial fluid aspirated Samples sent for: cell count with differential, gram stain, and culture 07/10: Tolerating beta medicine cream and rash is improving , leukocytosis is improving and S/P evaluation by orthopedic surgery for right knee aspiration , however unable to pull up any fluid analysis of knee aspirate 07/11: Patient is suspected to having UTI and would confirm with urine culture and consider exchange of koch catheter Plan: - recommend exchange of koch catheter and check urine culture after catheter has been exchanged - follow up on knee aspirate cultures - defer management of pain in right knee and shoulder to orthopedic team and primary team - Continue ceftriaxone for UTI/pyelonephritis and possible septic arthritis - Cardiopulmonary: Monitor for CHF and COPD exacerbation, recommend renal ultrasound, and check for COVID-19 and influenza. - Pain/Fibromyalgia: Continue home medications for pain management and titrate prn for fibromyalgia related pain, monitor respiratory status closely. - Referral: Follow-up with urine culture results. - Isolation Precautions: Standard precautions. - Patient Education: Discuss diagnosis and treatment plan with the patient and address any concerns. Assessment and plan were discussed with the patient as written above. Plan is subject to change pending incorporation of new incoming information/diagnostics. Updates may be added as addendum at the bottom (OR TOP) of this note. Thank you for consulting. ID will continue to follow. Please contact Infectious Disease for any further questions or concerns. Plan discussed with: Other Dietary Evaluation Review Comments: 1) [facility] diet 2) Continue current plan of care Expected Outcomes/Goals: to meet 75% estimated needs within 7 days fu 2-3 days HUMAIRA CARDOZO MD Jul 12, 2024 21:50
--- NOTE | 2024-07-12 22:19 | DVHPN2 ---
Progress Note - Dictate Date Seen: Jul 12, 2024 Subjective Patient reports to have pruritus * Repeat Urine C & S comes again contaminated sample * Requested sample collection by ctheter method * referred to Dr Ervin Thomas for eval of urethral stricture and recurrebnt UTi The patient is currently being evaluated and treated for symptoms of right knee effusion, OA * Patient received uneventful aspiration of R knee joint * R knee joint as patient fluid was sent to lab * G stain of the sample shows WBC no bacteria * Participates in physical therapy and was able to ambulate 20 * Her R knee pains are worse increase the dose of Toradol starts feeling better at the right knee joint with improvement in the range of motion * The patient was continued on IV antibiotics as per Dr. Ed Charles for Infectious Disease eval * The patient was seen by [employer]PUTY [employer] associate of Dr. Araceli Cuba for orthopedic evaluation * Concurrently patient was noted to have UTI for which she receives IV antibiotics * Added dilaudid for pain * Patient was also noted to have uncontrolled hypertension for which I have requested to place patient on valsartan 160 mg p.o. twice a day * Added clonidine as a p.r.n. antihypertensive * * Overnight events are reviewed through medical chart and case discussion with patient's assigned RN while making rounds on patient on the day of service vital signs Vital Sign Date Time Temp Pulse Resp B/P (MAP) Pulse Ox O2 Delivery O2 Flow Rate FiO2 07/12/24 21:00 98.1 75 18 117/53 (74) 99 98.1 07/12/24 13:39 Nasal Cannula 1.0 07/12/24 13:39 24 Total Intake and Output 07/11/24 07/11/24 07/12/24 15:00 23:00 07:00 Intake Total 800 ml 1010 ml Balance 800 ml 1010 ml medications Current Medications Medications Dose Ordered Sig/Kitty Route Start Time Stop Time Status Last Admin Dose Admin Nitroglycerin 0.4 mg Q5MINP PRN SL 07/06/24 09:15 Albuterol 2.5 mg Q4HPRN PRN NEB 07/06/24 09:15 07/12/24 13:39 2.5 MG Clopidogrel Bisulfate 75 mg DAILY PO 07/06/24 10:00 07/12/24 11:43 75 MG Docusate Sodium 100 mg DAILY PRN PO 07/06/24 09:15 Duloxetine HCl 30 mg DAILY PO 07/06/24 10:00 07/12/24 11:42 30 MG Empaglifozin 10 mg DAILY PO 07/06/24 10:00 07/12/24 11:44 10 MG Metoprolol Succinate 50 mg DAILY PO 07/06/24 10:00 07/12/24 11:43 50 MG Multivitamins 1 tab DAILY PO 07/06/24 10:00 07/12/24 11:43 1 TAB Oxybutynin Chloride 10 mg DAILY PO 07/06/24 10:00 07/12/24 11:44 10 MG Pantoprazole Sodium 40 mg QAM PO 07/07/24 07:00 07/12/24 05:57 40 MG Betamethasone Dipropion Augmented 1 applic DAILY TOP 07/08/24 10:00 07/12/24 11:42 1 APPLIC Valsartan 160 mg DAILY PO 07/09/24 06:30 07/12/24 11:42 160 MG Hydromorphone HCl 0.8 mg Q6HP PRN IV 07/11/24 00:00 07/12/24 15:23 0.8 MG Trimethoprim/ Sulfamethoxazole 10 ml/Dextrose 260 ml @ 173.333 mls/hr Q8HR IV 07/11/24 22:00 07/12/24 21:19 173.333 MLS/HR Diphenhydramine HCl 25 mg Q6HP PRN PO 07/12/24 17:30 07/12/24 18:30 25 MG laboratory and microbiology Laboratory Tests 07/10/24 09:56 Test 07/10/24 09:56 Range/Units Serum Glucose 165 H 74-106 mg/dL Problem List (1) Eczema (2) Right shoulder pain (3) Right knee pain (4) Acute pyelonephritis (5) URINARY TRACT INFECTION, SITE NOT SPECIFIED (6) Fibromyalgia affecting multiple sites (7) Injury of left rotator cuff (8) Acute exacerbation of chronic obstructive pulmonary disease (COPD) (9) Pain management Dietary Evaluation Review Comments: 1[facility] 2) Continue current plan of care Expected Outcomes/Goals: to meet 75% estimated needs within 7 days fu 2-3 days SULY CHARLES MD Jul 12, 2024 22:19
[2024-07-13] VITALS (12 sets, daily range): BP systolic 111–151; BP diastolic 66–84; PULSE 65–95; RESP 16–19; TEMP 97.4–98.9; O2SAT 96–100
[2024-07-13 07:20] LABS: Basophils # (auto) 0.1 10 ^3/uL (0-0.2); Mean Corpuscular Volume 78.5 fL (80.0-100.0); Monocytes # (auto) 1.1 10 ^3/uL (0-1.3); Red Cell Distribution Width 14.9 % (11.8-14.3)
[2024-07-13 07:23] LABS: Basophils % (auto) 0.8 % (0.0-2.0); Eosinophils # (auto) 0.7 10 ^3/uL (0-0.8); Eosinophils % (auto) 8.2 % (0.0-7.0); Hematocrit 36.7 % (36.0-46.0); Hemoglobin 11.8 g/dL (12.2-16.2); Lymphocytes # (auto) 1.8 10 ^3/uL (0.4-5.4); Lymphocytes % (auto) 19.9 % (10.0-50.0); Mean Corpuscular Hemoglobin 25.2 pg (28.0-32.0); Mean Corpuscular Hgb Conc. 32.1 g/dL (32.0-36.0); Neutrophils # (auto) 5.3 10 ^3/uL (1.6-8.6); Neutrophils % (auto) 59.1 % (37.0-80.0); Platelet Count (auto) 375 10^3/uL (140-450); Red Blood Cells 4.68 10^6/uL (4.0-5.20); White Blood Cell 8.9 10^3/uL (4.4-10.8)
[2024-07-13 07:40] LABS: Alanine Aminotransferase 23 U/L (7-40); Albumin 4.4 g/dL (3.2-4.8); Alkaline Phosphatase 106 U/L (46-116); Anion Gap 11 (5-15); Aspartate Aminotransferase 21 U/L (13-40); Calcium 10.1 mg/dL (8.7-10.4); Carbon Dioxide 20 mmol/L (20-31); Chloride 105 mmol/L (98-107); Potassium 4.4 mmol/L (3.5-5.1); Total Protein 7.8 g/dL (5.7-8.2)
[2024-07-13 07:42] LABS: Sodium 136 mmol/L (136-145)
[2024-07-13 07:43] LABS: Bilirubin, Total 0.2 mg/dL (0.2-1.0); Blood Urea Nitrogen 9 mg/dL (9-23); Glucose 153 mg/dL (74-106)
--- NOTE | 2024-07-13 13:40 | DVHINCON2 ---
Date of service: Jul 13, 2024 Referring Physician vasu Mora Reason for Consultation Recurrent UTI History of Present Illness History Source: Patient, RN Notes, MD Notes Exam Limitations: No limitations HPI 64 yo female with lupus and recurrent UTI. She sees Dr. Gonzalez. Today no complaint of dysuria. Reports urine has been clear. Apparently they had trouble with straight catheter. Questionable stricture of the urethra Home Meds Active Scripts Albuterol Sulfate (Ventolin) 2.5 Mg/0.5 Ml Nb, 2.5 MG NEB Q4HPRN PRN for 50 Days, #100 ML 1 Refill Prov:SULY CARDOZO MD 01/20/22 Reported Medications Multiple Vitamin (Multivitamins) Tab, 1 TAB PO DAILY, #90 TAB 3 Refills 05/29/24 Celecoxib (Celebrex) 200 Mg Cap, 200 MG PO HS, CAP 05/29/24 Betamethasone Dipropionate (Betamethasone Dipropionat) 0.05 % Oin, 1 APPLIC TD BID 05/29/24 Duloxetine HCl (Duloxetine HCl) 30 Mg Cap, 30 MG PO DAILY 05/29/24 Tizanidine Hydrochloride (Tizanidine Hcl) 4 Mg Tab, 4 MG PO BID 05/29/24 Oxybutynin Chloride (Oxybutynin Chloride) 5 Mg Tab, 10 MG PO DAILY 05/29/24 Oxycodone HCl (Oxycodone Hydrochloride) 20 Mg Tab, 20 MG PO Q8HPRN PRN for PAIN SCALE 7 THRU 10 05/29/24 Valsartan-Hydrochlorothiazide (Diovan Hct) 160 /12.5 Tab, 1 TAB PO DAILY 05/15/23 Aripiprazole (Aripiprazole) 10 Mg Tab, 1 TAB PO DAILY 05/15/23 Metformin Hydrochloride (Metformin Hcl Er) 750 Mg Tab, 1 TAB PO DAILY, #90 TAB 3 Refills 05/12/23 Rosuvastatin Calcium (Crestor) 20 Mg Tab, 1 TAB PO DAILY for LOWER BAD CHOLESTEROL, #30 TAB 5 Refills 04/03/22 Pantoprazole Sodium Sesquihydr (Pantoprazole Sodium) 40 Mg Tab, 40 MG PO QAM for GERD, TAB PRIOR TO BREAKFAST PER PT SHOULD STILL BE ON THIS MEDICATION EVEN THOUGH NO P/UP HISTORY IN EXTERNAL MED 11/21/21 Empagliflozin (Jardiance) 10 Mg Tab, 10 MG PO DAILY for DIABETES, TAB 11/21/21 Escitalopram Oxalate (ESCITALOPRAM OXALATE) 20 Mg Tab, 1 TAB PO DAILY for DEPRESSION, #30 TAB 5 Refills 11/21/21 Metoprolol Succinate (Metoprolol Succinate Er) 50 Mg Tab, 50 MG PO DAILY for BLOOD PRESSURE NEW DISCHARGE MED IS METOPROLOL SUCC ER 25 MG BID, BUT PATIENT HAS NOT STARTED TAKING YET AND WOULD LIKE TO BE KEPT ON 50 MG DAILY 07/12/20 Mupirocin Calcium (Topical) (MUPIROCIN) 2 % Cre, 1 APPLIC TOP BID for Skin infection PER PATIENT'S HOME MED LIST: APPLY TOPICALLY TO OPEN WOUNDS BID PT USES 2 GRAMS BID 01/18/20 Docusate Sodium (DOCQLACE) 100 Mg Cap, 100 MG PO DAILY PRN for FOR CONSTIPATION, CAP 06/04/18 Albuterol Sulfate (VENTOLIN MDI) 90 Mcg Ih, 2 PUFF IN Q6HPRN PRN for SHORTNESS OF BREATH EXTERNAL MED HX SAYS Q4HR. PATIENT USES Q6HR PRN 06/04/18 Clopidogrel Bisulfate (CLOPIDOGREL) 75 Mg Tab, 75 MG PO DAILY 06/04/18 Past Medical History Patient Family History: Cardiovascular disease G8 FATHER, Onset: - Diabetes mellitus FHx: cancer G8 MOTHER, Onset: - Hypertension G8 MOTHER, Onset:s - G8 FATHER, Onset: - H&P Exam Vital Signs Vital Signs Date Time Temp Pulse Resp B/P (MAP) Pulse Ox O2 Delivery O2 Flow Rate FiO2 07/13/24 13:04 74 18 149/66 07/13/24 10:22 99 Room Air* 0 21 07/13/24 09:00 97.4 97.4 General Appeara: Well developed, Well nourished, Normal Appearance, Obese Neuro/Mental St: Alert, Oriented Appearance: Appropriate appearance, Appropriate insight Skin Exam: Normal inspection, Normal color, Warm/dry Labs/Xrays Labs Test 07/13/24 06:54 07/11/24 13:43 07/11/24 08:55 07/10/24 09:56 Range/Units White Blood Count 8.9 4.4-10.8 10^3/uL Red Blood Count 4.68 4.0-5.20 10^6/uL Hemoglobin 11.8 L 12.2-16.2 g/dL Hematocrit 36.7 36.0-46.0 % Mean Corpuscular Volume 78.5 L 80.0-100.0 fL Mean Corpuscular Hemoglobin 25.2 L 28.0-32.0 pg Mean Corpuscular Hemoglobin Concent 32.1 32.0-36.0 g/dL Red Cell Distribution Width 14.9 H 11.8-14.3 % Platelet Count 375 140-450 10^3/uL Mean Platelet Volume 7.7 6.9-10.8 fL Neutrophils (%) (Auto) 59.1 37.0-80.0 % Lymphocytes (%) (Auto) 19.9 10.0-50.0 % Monocytes (%) (Auto) 12.0 0.0-12.0 % Eosinophils (%) (Auto) 8.2 H 0.0-7.0 % Basophils (%) (Auto) 0.8 0.0-2.0 % Neutrophils # (Auto) 5.3 1.6-8.6 10 ^3/uL Lymphocytes # (Auto) 1.8 0.4-5.4 10 ^3/uL Monocytes # (Auto) 1.1 0-1.3 10 ^3/uL Eosinophils # (Auto) 0.7 0-0.8 10 ^3/uL Basophils # (Auto) 0.1 0-0.2 10 ^3/uL Nucleated Red Blood Cells 0.0 % Sodium Level 136 136-145 mmol/L Potassium Level 4.4 3.5-5.1 mmol/L Chloride Level 105 98-107 mmol/L Carbon Dioxide Level 20 20-31 mmol/L Anion Gap 11 5-15 Blood Urea Nitrogen 9 9-23 mg/dL Creatinine 0.90 0.550-1.02 mg/dL Glomerular Filtration Rate Calc 71 >90 mL/min BUN/Creatinine Ratio 10.0 10.0-20.0 Serum Glucose 153 H 74-106 mg/dL Calcium Level 10.1 8.7-10.4 mg/dL Total Bilirubin 0.2 0.2-1.0 mg/dL Aspartate Amino Transferase (AST) 21 13-40 U/L Alanine Aminotransferase (ALT) 23 7-40 U/L Alkaline Phosphatase 106 46-116 U/L Total Protein 7.8 5.7-8.2 g/dL Albumin 4.4 3.2-4.8 g/dL Urine Color Yellow Yellow Urine Clarity Cloudy H Clear Urine pH 5.0 5.0-9.0 Urine Specific Garrard 1.021 1.001-1.035 Urine Protein 1+ H Negative Urine Ketones Negative Negative Urine Blood 3+ H Negative /uL Urine Nitrite Negative Negative Urine Bilirubin Negative Negative Urine Urobilinogen Normal Negative mg/dL Urine Leukocyte Esterase 3+ Negative /uL Urine RBC 67 0 - 4 /hpf Urine WBC Clumps Present None Seen /hpf Urine Microscopic WBC 2908 H 0-5 /HPF Urine Squamous Epithelial Cells Mod <5 /hpf Urine Bacteria Many H None Seen /hpf Urine Yeast (Budding) Loaded None Seen /hpf Urine Glucose 4+ H Normal mg/dL Uric Acid 4.8 3.1-7.8 mg/dL C-Reactive Protein High Sensitivity 1.73 H <1.0 mg/dL Hemoglobin A1c 6.7 H <5.7 % A1C Phosphorus Level 3.4 2.4-5.1 mg/dL Magnesium Level 2.1 1.6-2.6 mg/dL Triglycerides Level 112 < 150 mg/dL Cholesterol Level 126 < 200 mg/dL LDL Cholesterol 76 < 100 mg/dL HDL Cholesterol 28 L 40-59 mg/dL Test 07/09/24 22:39 Range/Units Erythrocyte Sedimentation Rate 36 H 0-20 mm/hr Microbiology Date/Time Source Procedure Growth Status 07/11/24 13:43 Urine - Catheterized Urine Culture - Preliminary Escherichia coli Resulted 07/08/24 18:30 Knee Right Gram Stain - Final Complete 07/08/24 18:30 Knee Right Wound Culture - Final Complete 07/07/24 23:00 Blood Blood Culture - Final NO GROWTH AFTER 5 DAYS OF INCUBATION. Complete Assessment/Plan Problem List: (1) URINARY TRACT INFECTION, SITE NOT SPECIFIED (2) Acute pyelonephritis Plan outpt cystoscopy TBA with Dr Gonzalez recommend suppressive abx (keflex of macrobid) Plan discussed with: Patient, Other HEIDY COOK NP Jul 13, 2024 13:40
--- NOTE | 2024-07-13 23:39 | DVHPN2 ---
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 * recommended patient to receive out patient cystoscopy * Repeat Urine C & S comes again contaminated sample * Requested sample collection by ctheter method * referred to Dr Ervin Thomas for eval of urethral stricture and recurrebnt UTi The patient is currently being evaluated and treated for symptoms of right knee effusion, OA * Patient received uneventful aspiration of R knee joint * R knee joint as patient fluid was sent to lab * G stain of the sample shows WBC no bacteria * Participates in physical therapy and was able to ambulate 20 * Her R knee pains are worse increase the dose of Toradol starts feeling better at the right knee joint with improvement in the range of motion * The patient was continued on IV antibiotics as per Dr. Ed Charles for Infectious Disease eval * The patient was seen by [employer] associate of Dr. Araceli Cuba for orthopedic evaluation * Concurrently patient was noted to have UTI for which she receives IV antibiotics * Added dilaudid for pain * Patient was also noted to have uncontrolled hypertension for which I have requested to place patient on valsartan 160 mg p.o. twice a day * Added clonidine as a p.r.n. antihypertensive * * Overnight events are reviewed through medical chart and case discussion with patient's assigned RN while making rounds on patient on the day of service vital signs Vital Sign Date Time Temp Pulse Resp B/P (MAP) Pulse Ox O2 Delivery O2 Flow Rate FiO2 07/13/24 20:59 98.9 89 18 151/84 (106) 96 98.9 07/13/24 18:42 Room Air* 0 21 Total Intake and Output 07/12/24 07/12/24 07/13/24 15:00 23:00 07:00 Intake Total 725 ml 900 ml Balance 725 ml 900 ml medications Current Medications Medications Dose Ordered Sig/Kitty Route Start Time Stop Time Status Last Admin Dose Admin Nitroglycerin 0.4 mg Q5MINP PRN SL 07/06/24 09:15 Albuterol 2.5 mg Q4HPRN PRN NEB 07/06/24 09:15 07/12/24 13:39 2.5 MG Clopidogrel Bisulfate 75 mg DAILY PO 07/06/24 10:00 07/13/24 09:53 75 MG Docusate Sodium 100 mg DAILY PRN PO 07/06/24 09:15 Duloxetine HCl 30 mg DAILY PO 07/06/24 10:00 07/13/24 09:53 30 MG Empaglifozin 10 mg DAILY PO 07/06/24 10:00 07/13/24 09:53 10 MG Metoprolol Succinate 50 mg DAILY PO 07/06/24 10:00 07/13/24 09:56 50 MG Multivitamins 1 tab DAILY PO 07/06/24 10:00 07/13/24 09:54 1 TAB Oxybutynin Chloride 10 mg DAILY PO 07/06/24 10:00 07/13/24 09:53 10 MG Pantoprazole Sodium 40 mg QAM PO 07/07/24 07:00 07/13/24 06:19 40 MG Betamethasone Dipropion Augmented 1 applic DAILY TOP 07/08/24 10:00 07/12/24 11:42 1 APPLIC Valsartan 160 mg DAILY PO 07/09/24 06:30 07/13/24 09:54 160 MG Hydromorphone HCl 0.8 mg Q6HP PRN IV 07/11/24 00:00 07/13/24 20:26 0.8 MG Trimethoprim/ Sulfamethoxazole 10 ml/Dextrose 260 ml @ 173.333 mls/hr Q8HR IV 07/11/24 22:00 07/13/24 21:59 173.333 MLS/HR Diphenhydramine HCl 25 mg Q6HP PRN PO 07/12/24 17:30 07/12/24 18:30 25 MG laboratory and microbiology Laboratory Tests 07/13/24 06:54 Test 07/13/24 06:54 Range/Units Serum Glucose 153 H 74-106 mg/dL Problem List (1) Eczema (2) Right shoulder pain (3) Right knee pain (4) Acute pyelonephritis (5) URINARY TRACT INFECTION, SITE NOT SPECIFIED (6) Fibromyalgia affecting multiple sites (7) Injury of left rotator cuff (8) Acute exacerbation of chronic obstructive pulmonary disease (COPD) (9) Pain management Dietary Evaluation Review Comments: 1) Advance to CCHO60 + cardiac diet 2) Continue current plan of care Expected Outcomes/Goals: to meet 75% estimated needs within 7 days fu 2-3 days SULY CHARLES MD Jul 13, 2024 23:39
[2024-07-13] MEDS ORDERED: DIP005TP TOP (23:45)
--- NOTE | 2024-07-13 23:54 | DVHPN2 ---
Consult Progress Note Date Seen: Jul 13, 2024 Subjective Patient reports: Other (having less pain , diffusely , feeling her pain is under much better control . no more SOB or wheezing with clear lungs . Urine has cleared up after koch catheter exchange ) Objective vital signs Vital Sign Date Time Temp Pulse Resp B/P (MAP) Pulse Ox O2 Delivery O2 Flow Rate FiO2 07/13/24 20:59 98.9 89 18 151/84 (106) 96 98.9 07/13/24 18:42 Room Air* 0 21 Total Intake and Output 07/12/24 07/12/24 07/13/24 15:00 23:00 07:00 Intake Total 725 ml 900 ml Balance 725 ml 900 ml medications Current Medications Medications Dose Ordered Sig/Kitty Route Start Time Stop Time Status Last Admin Dose Admin Nitroglycerin 0.4 mg Q5MINP PRN SL 07/06/24 09:15 Albuterol 2.5 mg Q4HPRN PRN NEB 07/06/24 09:15 07/12/24 13:39 2.5 MG Clopidogrel Bisulfate 75 mg DAILY PO 07/06/24 10:00 07/13/24 09:53 75 MG Docusate Sodium 100 mg DAILY PRN PO 07/06/24 09:15 Duloxetine HCl 30 mg DAILY PO 07/06/24 10:00 07/13/24 09:53 30 MG Empaglifozin 10 mg DAILY PO 07/06/24 10:00 07/13/24 09:53 10 MG Metoprolol Succinate 50 mg DAILY PO 07/06/24 10:00 07/13/24 09:56 50 MG Multivitamins 1 tab DAILY PO 07/06/24 10:00 07/13/24 09:54 1 TAB Oxybutynin Chloride 10 mg DAILY PO 07/06/24 10:00 07/13/24 09:53 10 MG Pantoprazole Sodium 40 mg QAM PO 07/07/24 07:00 07/13/24 06:19 40 MG Betamethasone Dipropion Augmented 1 applic DAILY TOP 07/08/24 10:00 07/12/24 11:42 1 APPLIC Valsartan 160 mg DAILY PO 07/09/24 06:30 07/13/24 09:54 160 MG Hydromorphone HCl 0.8 mg Q6HP PRN IV 07/11/24 00:00 07/13/24 20:26 0.8 MG Trimethoprim/ Sulfamethoxazole 10 ml/Dextrose 260 ml @ 173.333 mls/hr Q8HR IV 07/11/24 22:00 07/13/24 21:59 173.333 MLS/HR Diphenhydramine HCl 25 mg Q6HP PRN PO 07/12/24 17:30 07/12/24 18:30 25 MG Physical Exam General: NAD, mild distress secondary to flank pain. Neck: Supple, no masses. HEENT: PERRL. Normal lids and conjunctiva. Moist mucous membranes. Oropharynx without lesions or erythema. Normal external nose/ears. Heart: Regular rate and rhythm; no murmurs; no LE edema. Lungs: Normal respiratory effort. Clear to auscultation bilaterally; no wheezes/crackles. Abdomen: Soft. Right flank and suprapubic tenderness to palpation. Non?distended. No palpable masses or hernia. Msk: No digital cyanosis. Normal strength and tone in all four limbs. Skin: Warm, dry; no rash. Neuro: Alert and oriented 4. Cranial nerves grossly intact. No motor or sensory deficit. Psych: Appropriate mood, full affect. laboratory and microbiology Laboratory Tests 07/13/24 06:54 Test 07/13/24 06:54 Range/Units Serum Glucose 153 H 74-106 mg/dL Problem List/Assessment/Plan Problems(with codes): (1) Fibromyalgia affecting multiple sites (2) Acute pyelonephritis (3) URINARY TRACT INFECTION, SITE NOT SPECIFIED (4) Acute coronary syndrome (5) Acute chest pain (6) NSTEMI (non-ST elevated myocardial infarction) Problem List/Assessment/Plan Problems(with codes): (1) Eczema (2) Right shoulder pain (3) Right knee pain (4) Acute pyelonephritis (5) URINARY TRACT INFECTION, SITE NOT SPECIFIED (6) Fibromyalgia affecting multiple sites (7) Injury of left rotator cuff (8) Acute exacerbation of chronic obstructive pulmonary disease (COPD) (9) Pain management Plan/Recommendation ASSESSMENT AND PLAN: ID Problem List: - Hypertension - Diabetes - Hypercholesterolemia - Obesity - Fibromyalgia - Coronary Artery Disease (CAD) - COPD - UTI/Pyelonephritis - Potential CHF exacerbation - Potential pneumonia Assessment This is a 63-year-old female with a past medical history significant for hypertension, diabetes, hypercholesterolemia, obesity, fibromyalgia, coronary artery disease (post-PCTA in 2007), and COPD. Presenting symptoms include diffuse body weakness, dysuria, and suprapubic pain. Admitted for concern for UTI, pyelonephritis, exacerbation of fibromyalgia, and COPD. The patient endorses worsening wheezing but no significant sputum production, no fevers or chills noted. The symptoms have been ongoing for the last three to four days. Labs reveal a white count of 7.6, hemoglobin of 10.2, platelets at 305, sodium 138, creatinine 0.58, BUN 8, and a hemoglobin A1c of 6.5. Urinalysis shows few squamous cells, pyuria (65 WBCs), 2+ leukocyte esterase, hematuria, and is negative for nitrites. Urine culture yields mixed gram-positive anastacia. Chest X- ray shows no acute cardiac process, cardiomegaly with mild CHF, and potential pneumonia. 07/08: sp Approximately 35 mL of synovial fluid aspirated Samples sent for: cell count with differential, gram stain, and culture 07/10: Tolerating beta medicine cream and rash is improving , leukocytosis is improving and S/P evaluation by orthopedic surgery for right knee aspiration , however unable to pull up any fluid analysis of knee aspirate 07/11: Patient is suspected to having UTI and would confirm with urine culture and consider exchange of koch catheter 07/12: Patient has a UTI with E Coli that is mccabe sensitive with exception of levoqin and ciprofloxacin 07/13: Patient appears to be improving from pain and UTI perspective , having several bowel movements with loose stools Plan: - continue IV Bactrum - monitor renal function closely - when ready for discharge recommend treating with oral bactrum 1 double strength daily x7 days - stop ceftriaxone - recommend exchange of koch catheter and check urine culture after catheter has been exchanged - follow up on knee aspirate cultures - defer management of pain in right knee and shoulder to orthopedic team and primary team -sp knee effusion aspiration -> will fu on bacterial culture and protein, glucose, cell count analysis. - Cardiopulmonary: Monitor for CHF and COPD exacerbation, recommend renal ultrasound, and check for COVID-19 and influenza. - Pain/Fibromyalgia: Continue home medications for pain management and titrate prn for fibromyalgia related pain, monitor respiratory status closely. - Referral: Follow-up with urine culture results. - Isolation Precautions: Standard precautions. - Patient Education: Discuss diagnosis and treatment plan with the patient and address any concerns. Assessment and plan were discussed with the patient as written above. Plan is subject to change pending incorporation of new incoming information/diagnostics. Updates may be added as addendum at the bottom (OR TOP) of this note. Thank you for consulting. ID will continue to follow. Please contact Infectious Disease for any further questions or concerns. Plan discussed with: Other Dietary Evaluation Review Comments: 1) Advance to CCHO60 + cardiac diet 2) Continue current plan of care Expected Outcomes/Goals: to meet 75% estimated needs within 7 days fu 2-3 days HUMAIRA CARDOZO MD Jul 13, 2024 23:53
[2024-07-14] VITALS (10 sets, daily range): BP systolic 111–132; BP diastolic 41–75; PULSE 70–92; RESP 14–19; TEMP 98–99.1; O2SAT 96–100
[2024-07-14 02:11] LABS: Urine Bacteria FEW /hpf (None Seen); Urine Blood 3+ /uL (Negative); Urine Budding Yeast MODERATE /hpf (None Seen); Urine Clarity Ex.Turbid (Clear); Urine Color Colorless (Yellow); Urine Protein, UAD 1+ (Negative); Urine Specific Gravity 1.005 (1.001-1.035); Urine Squamous Epithelial Cell FEW /hpf (<5); Urine Urobilinogen Normal (Negative); Urine WBC 1827 /HPF (0-5); Urine pH 6.5 (5.0-9.0)
[2024-07-14] MEDS ORDERED: DexAMETHasone INJECTION 10 MG in D5W 5% 50 ML IV ONE ×2 (06:45→07:00)
[2024-07-14] MEDS: DexAMETHasone INJECTION 10 MG in D5W 5% 50 ML IV ONE (08:53)
[2024-07-14] MEDS: KETOROLAC TROMETH 60MG/2ML VIAL IM ONE (09:47)
--- NOTE | 2024-07-14 19:28 | DVHPN2 ---
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 * recommended patient to receive out patient cystoscopy * Repeat Urine C & S comes again contaminated sample * Requested sample collection by ctheter method * referred to Dr Ervin Thomas for eval of urethral stricture and recurrebnt UTi The patient is currently being evaluated and treated for symptoms of right knee effusion, OA * Patient received uneventful aspiration of R knee joint * R knee joint as patient fluid was sent to lab * G stain of the sample shows WBC no bacteria * Participates in physical therapy and was able to ambulate 20 * Her R knee pains are worse increase the dose of Toradol starts feeling better at the right knee joint with improvement in the range of motion * The patient was continued on IV antibiotics as per Dr. Ed Charles for Infectious Disease eval * The patient was seen by [employer] associate of Dr. Araceli Cuba for orthopedic evaluation * Concurrently patient was noted to have UTI for which she receives IV antibiotics * Added dilaudid for pain * Patient was also noted to have uncontrolled hypertension for which I have requested to place patient on valsartan 160 mg p.o. twice a day * Added clonidine as a p.r.n. antihypertensive * * Overnight events are reviewed through medical chart and case discussion with patient's assigned RN while making rounds on patient on the day of service vital signs Vital Sign Date Time Temp Pulse Resp B/P (MAP) Pulse Ox O2 Delivery O2 Flow Rate FiO2 07/14/24 17:52 92 19 125/70 07/14/24 17:00 98.4 97 98.4 07/14/24 08:00 Room Air* 0 21 Total Intake and Output 07/13/24 07/13/24 07/14/24 15:00 23:00 07:00 Intake Total 220 ml 1033 ml 1320 ml Balance 220 ml 1033 ml 1320 ml medications Current Medications Medications Dose Ordered Sig/Kitty Route Start Time Stop Time Status Last Admin Dose Admin Nitroglycerin 0.4 mg Q5MINP PRN SL 07/06/24 09:15 Albuterol 2.5 mg Q4HPRN PRN NEB 07/06/24 09:15 07/14/24 06:46 2.5 MG Clopidogrel Bisulfate 75 mg DAILY PO 07/06/24 10:00 07/14/24 08:54 75 MG Docusate Sodium 100 mg DAILY PRN PO 07/06/24 09:15 Duloxetine HCl 30 mg DAILY PO 07/06/24 10:00 07/14/24 08:54 30 MG Empaglifozin 10 mg DAILY PO 07/06/24 10:00 07/14/24 08:55 10 MG Metoprolol Succinate 50 mg DAILY PO 07/06/24 10:00 07/14/24 08:54 50 MG Multivitamins 1 tab DAILY PO 07/06/24 10:00 07/14/24 08:54 1 TAB Oxybutynin Chloride 10 mg DAILY PO 07/06/24 10:00 07/14/24 08:53 10 MG Pantoprazole Sodium 40 mg QAM PO 07/07/24 07:00 07/14/24 06:57 40 MG Betamethasone Dipropion Augmented 1 applic DAILY TOP 07/08/24 10:00 07/14/24 08:55 1 APPLIC Valsartan 160 mg DAILY PO 07/09/24 06:30 07/14/24 08:54 160 MG Hydromorphone HCl 0.8 mg Q6HP PRN IV 07/11/24 00:00 07/14/24 17:52 0.8 MG Trimethoprim/ Sulfamethoxazole 10 ml/Dextrose 260 ml @ 173.333 mls/hr Q8HR IV 07/11/24 22:00 07/14/24 14:58 173.333 MLS/HR Diphenhydramine HCl 25 mg Q6HP PRN PO 07/12/24 17:30 07/12/24 18:30 25 MG laboratory and microbiology Laboratory Tests 07/13/24 06:54 Test 07/13/24 06:54 Range/Units Serum Glucose 153 H 74-106 mg/dL Problem List (1) Eczema (2) Right shoulder pain (3) Right knee pain (4) Acute pyelonephritis (5) URINARY TRACT INFECTION, SITE NOT SPECIFIED (6) Fibromyalgia affecting multiple sites (7) Injury of left rotator cuff (8) Acute exacerbation of chronic obstructive pulmonary disease (COPD) (9) Pain management Dietary Evaluation Review Comments: 1) Advance to CCHO60 + cardiac diet 2) Continue current plan of care Expected Outcomes/Goals: to meet 75% estimated needs within 7 days fu 2-3 days SULY CHARLES MD Jul 14, 2024 19:28
--- NOTE | 2024-07-14 19:28 | DVHDS2 ---
Discharge Summary Date of Admission Jul 06, 2024 at 09:06 Date of Discharge: Jul 14, 2024 Labs/Diagnostic Data: Laboratory Results Test 07/13/24 23:00 07/13/24 06:54 07/11/24 13:43 07/11/24 08:55 Urine Color Colorless (Yellow) Urine Clarity Ex.turbid (Clear) Urine pH 6.5 (5.0-9.0) Urine Specific [place] 1.005 (1.001-1.035) Urine Protein 1+ (Negative) Urine Ketones Negative (Negative) Urine Blood 3+ /uL (Negative) Urine Nitrite Negative (Negative) Urine Bilirubin Negative (Negative) Urine Urobilinogen Normal mg/dL (Negative) Urine Leukocyte Esterase 3+ /uL (Negative) Urine RBC 204 /hpf (0 - 4) Urine Microscopic WBC 1827 /HPF (0-5) Urine Squamous Epithelial Cells Few /hpf (<5) Urine Bacteria Few /hpf (None Seen) Urine Yeast (Budding) Moderate /hpf (None Seen) Urine Glucose 4+ mg/dL (Normal) White Blood Count 8.9 10^3/uL (4.4-10.8) Red Blood Count 4.68 10^6/uL (4.0-5.20) Hemoglobin 11.8 g/dL (12.2-16.2) Hematocrit 36.7 % (36.0-46.0) Mean Corpuscular Volume 78.5 fL (80.0-100.0) Mean Corpuscular Hemoglobin 25.2 pg (28.0-32.0) Mean Corpuscular Hemoglobin Concent 32.1 g/dL (32.0-36.0) Red Cell Distribution Width 14.9 % (11.8-14.3) Platelet Count 375 10^3/uL (140-450) Mean Platelet Volume 7.7 fL (6.9-10.8) Neutrophils (%) (Auto) 59.1 % (37.0-80.0) Lymphocytes (%) (Auto) 19.9 % (10.0-50.0) Monocytes (%) (Auto) 12.0 % (0.0-12.0) Eosinophils (%) (Auto) 8.2 % (0.0-7.0) Basophils (%) (Auto) 0.8 % (0.0-2.0) Neutrophils # (Auto) 5.3 10 ^3/uL (1.6-8.6) Lymphocytes # (Auto) 1.8 10 ^3/uL (0.4-5.4) Monocytes # (Auto) 1.1 10 ^3/uL (0-1.3) Eosinophils # (Auto) 0.7 10 ^3/uL (0-0.8) Basophils # (Auto) 0.1 10 ^3/uL (0-0.2) Nucleated Red Blood Cells 0.0 % Sodium Level 136 mmol/L (136-145) Potassium Level 4.4 mmol/L (3.5-5.1) Chloride Level 105 mmol/L (98-107) Carbon Dioxide Level 20 mmol/L (20-31) Anion Gap 11 (5-15) Blood Urea Nitrogen 9 mg/dL (9-23) Creatinine 0.90 mg/dL (0.550-1.02) Glomerular Filtration Rate Calc 71 mL/min (>90) BUN/Creatinine Ratio 10.0 (10.0-20.0) Serum Glucose 153 mg/dL (74-106) Calcium Level 10.1 mg/dL (8.7-10.4) Total Bilirubin 0.2 mg/dL (0.2-1.0) Aspartate Amino Transferase (AST) 21 U/L (13-40) Alanine Aminotransferase (ALT) 23 U/L (7-40) Alkaline Phosphatase 106 U/L (46-116) Total Protein 7.8 g/dL (5.7-8.2) Albumin 4.4 g/dL (3.2-4.8) Urine WBC Clumps Present /hpf (None Seen) Uric Acid 4.8 mg/dL (3.1-7.8) C-Reactive Protein High Sensitivity 1.73 mg/dL (<1.0) Test 07/10/24 09:56 07/09/24 22:39 Hemoglobin A1c 6.7 % A1C (<5.7) Phosphorus Level 3.4 mg/dL (2.4-5.1) Magnesium Level 2.1 mg/dL (1.6-2.6) Triglycerides Level 112 mg/dL (< 150) Cholesterol Level 126 mg/dL (< 200) LDL Cholesterol 76 mg/dL (< 100) HDL Cholesterol 28 mg/dL (40-59) Erythrocyte Sedimentation Rate 36 mm/hr (0-20) Other Laboratory Tests 07/13/24 06:54 Final Diagnosis/Problems List 1. Osteoarthritis of R knee with effusion 2. Recurrent UTI a. uretral stricture 3. acute flare up of fibromyagia 4. Fairly well controlled NIDDM and Hypertension 5. Morbid obesity in adult with current BMI 35-40 kg m2 Discharge Disposition: Home Discharge Instruct/Medications Diet: Consistent carbohydrate, Cardiac 2g Na,low cholest Diet comment: 2000 richie ADA low Na 2 g Activity: Light activity Activity comment: physical therapy for gait training Follow Up/Referral: Dr. Nely leone in 1-5 days Medications: Pl ref to d/c Med list Discharge Statement: "Patient was advised to return to the ER or call 911 if any headaches, dizziness, shortness of breath, chest pain, abdominal pain, bleeding, fevers, or worsening of medical condition. Patient was counseled about treatment plan, medications, possible side effects, patientverbalized understanding. All questions were answered to the best of my ability. This discharge took greater then 30 minutes in planning, reviewing documentation, counseling the patient, and discussing with other team members." ASSESSMENT ASSESSMENT Assessment 1. Osteoarthritis of R knee with effusion 2. Recurrent UTI a. uretral stricture 3. acute flare up of fibromyagia 4. Fairly well controlled NIDDM and Hypertension 5. Morbid obesity in adult with current BMI 35-40 kg m2 SULY LEONE MD Jul 14, 2024 19:28
[2024-07-14] MEDS ORDERED: AMPICILLIN SOD 2GM INJ 2 GM in SODIUM CHL 0.9% 100 ML IV ONE (19:30)
[2024-07-14] MEDS ORDERED: VALS1TAB57 PO (19:33)
[2024-07-14] MEDS ORDERED: AUG875T PO (19:33)
== END 2024-07-14 20:21 | disposition home or self-care (01) | DRG 549 ==
LOC: EDBD 03:40 → ER 03:40 → OVERFLOW 09:06 → TELE-WESTW 09:11
PROVIDERS: ADMIT Specialist; ATTEND Specialist
DX: M00.811 Arthritis due to other bacteria, right shoulder (principal); N12 Tubulo-interstitial nephritis, not specified as acute or chronic; I10 Essential (primary) hypertension; E66.01 Morbid (severe) obesity due to excess calories; Z68.35 Body mass index [BMI] 35.0-35.9, adult; L30.9 Dermatitis, unspecified; E11.9 Type 2 diabetes mellitus without complications; M79.7 Fibromyalgia; N35.92 Unspecified urethral stricture, female; M17.11 Unilateral primary osteoarthritis, right knee; K21.9 Gastro-esophageal reflux disease without esophagitis; I25.10 Atherosclerotic heart disease of native coronary artery without angina pectoris; E78.00 Pure hypercholesterolemia, unspecified; B96.20 Unspecified Escherichia coli [E. coli] as the cause of diseases classified elsewhere; S46.092A Other injury of muscle(s) and tendon(s) of the rotator cuff of left shoulder, initial encounter; Z96.642 Presence of left artificial hip joint; Z90.710 Acquired absence of both cervix and uterus; Z83.3 Family history of diabetes mellitus; Z87.440 Personal history of urinary (tract) infections; Z82.49 Family history of ischemic heart disease and other diseases of the circulatory system; Z79.899 Other long term (current) drug therapy; Z79.84 Long term (current) use of oral hypoglycemic drugs; Z79.02 Long term (current) use of antithrombotics/antiplatelets; Z88.8 Allergy status to other drugs, medicaments and biological substances; Z80.8 Family history of malignant neoplasm of other organs or systems; X58.XXXA Exposure to other specified factors, initial encounter; Y93.89 Activity, other specified; Y92.89 Other specified places as the place of occurrence of the external cause; Y99.8 Other external cause status; J44.9 Chronic obstructive pulmonary disease, unspecified
CPT/HCPCS: 36415; 73030; 73562; 73564; 80048; 80053; 80061; 81001; 83036; 83735; 84100; 84550; 85025; 85652; 86141; 87040; 87086; 87088; 87186; 87205; 93970; 94640; 96372; 97110; 97116; 97163; G0378; J1100; J1885; J3490; J7060

== ENCOUNTER 2024-07-29 18:48 | Inpatient (IN) | payer MEDICARE, MEDICAID ==
[~2024-07-29] VITALS: Ht 165.1 cm; Wt 118.2 kg
[~2024-07-29 18:48] MED LIST changes: +AUG875T PO; +DIP005TP TOP; +VALS1TAB57 PO
[2024-07-29 20:31] VITALS: BP 114/71; PULSE 73; RESP 20; TEMP 98.3; O2SAT 98
[2024-07-29] MEDS ORDERED: ALBUTEROL SULF HFA 90MCG INH 200DOSE IN PRN (21:00)
[2024-07-29] MEDS ORDERED: MORPHINE SULFATE INJ 2 MG/ml SYRG IV PRN (21:15)
[2024-07-29] MEDS ORDERED: NITROGLYCERIN 0.4 MG SL TAB SL PRN (21:15)
--- NOTE | 2024-07-29 21:32 | DVHHP2 ---
History of Present Illness 63-year-old female with a past medical history significant for hypertension, diabetes, hypercholesterolemia, obesity, fibromyalgia, coronary artery disease (post-PCTA in 2007), and COPD. Presenting symptoms include diffuse body weakness, R shoulder pain and R knee pain for the last two weeks and ezcematous rash diffuse with open ulcers. patient has been out of steroid medications for the last 2 weeks. Admitted for concern for septic arthritis, exacerbation of fibromyalgia, and COPD. The patient endorses worsening wheezing but no significant sputum production, no fevers or chills noted. The symptoms have been ongoing for the last three to four days. Labs reveal a white count of 7.6, hemoglobin of 10.2, platelets at 305, sodium 138, creatinine 0.58, BUN 8, and a hemoglobin A1c of 6.5. Urinalysis shows few squamous cells, pyuria (65 WBCs), 2+ leukocyte esterase, hematuria, and is negative for nitrites. Urine culture yields mixed gram-positive anastacia. Chest X- ray shows no acute cardiac process, cardiomegaly with mild CHF, and potential pneumonia. Patient Family History: Cardiovascular disease G8 FATHER, Onset: - Diabetes mellitus FHx: cancer G8 MOTHER, Onset: - Hypertension G8 MOTHER, Onset: - G8 FATHER, Onset: - Allergies: Coded Allergies: Benzalkonium Chloride (Verified Allergy, Unknown, 07/08/18) Dupilumab (Verified Allergy, Unknown, 05/30/24) Lisinopril (Verified Allergy, Unknown, 07/08/18) Sorbitan (Verified Allergy, Unknown, 05/30/24) Home Meds Active Scripts Valsartan (Valsartan) 80 Mg Tab, 160 MG PO DAILY for 90 Days, #180 TAB Prov:SULY CARDOZO MD 07/14/24 Amoxicillin & Pot Clavulanate (AUGMENTIN TABLET) 875 Mg Tb, 875 MG PO BID for 7 Days, #14 TAB Prov:SULY CARDOZO MD 07/14/24 Betamethasone Dipropionate (Betamethasone Dipropionat) 0.05 % Cre, 1 APPLIC TOP DAILY for 30 Days, #60 GM Prov:SULY CARDOZO MD 07/13/24 Albuterol Sulfate (Ventolin) 2.5 Mg/0.5 Ml Nb, 2.5 MG NEB Q4HPRN PRN for 50 Days, #100 ML 1 Refill Prov:SULY CARDOZO MD 01/20/22 Reported Medications Multiple Vitamin (Multivitamins) Tab, 1 TAB PO DAILY, #90 TAB 3 Refills 05/29/24 Celecoxib (Celebrex) 200 Mg Cap, 200 MG PO HS, CAP 05/29/24 Betamethasone Dipropionate (Betamethasone Dipropionat) 0.05 % Oin, 1 APPLIC TD BID 05/29/24 Duloxetine HCl (Duloxetine HCl) 30 Mg Cap, 30 MG PO DAILY 05/29/24 Tizanidine Hydrochloride (Tizanidine Hcl) 4 Mg Tab, 4 MG PO BID 05/29/24 Oxybutynin Chloride (Oxybutynin Chloride) 5 Mg Tab, 10 MG PO DAILY 05/29/24 Oxycodone HCl (Oxycodone Hydrochloride) 20 Mg Tab, 20 MG PO Q8HPRN PRN for PAIN SCALE 7 THRU 10 05/29/24 Valsartan-Hydrochlorothiazide (Diovan Hct) 160 /12.5 Tab, 1 TAB PO DAILY 05/15/23 Aripiprazole (Aripiprazole) 10 Mg Tab, 1 TAB PO DAILY 05/15/23 Metformin Hydrochloride (Metformin Hcl Er) 750 Mg Tab, 1 TAB PO DAILY, #90 TAB 3 Refills 05/12/23 Rosuvastatin Calcium (Crestor) 20 Mg Tab, 1 TAB PO DAILY for LOWER BAD CHOLESTEROL, #30 TAB 5 Refills 04/03/22 Pantoprazole Sodium Sesquihydr (Pantoprazole Sodium) 40 Mg Tab, 40 MG PO QAM for GERD, TAB PRIOR TO BREAKFAST PER PT SHOULD STILL BE ON THIS MEDICATION EVEN THOUGH NO P/UP HISTORY IN EXTERNAL MED 11/21/21 Empagliflozin (Jardiance) 10 Mg Tab, 10 MG PO DAILY for DIABETES, TAB 11/21/21 Escitalopram Oxalate (ESCITALOPRAM OXALATE) 20 Mg Tab, 1 TAB PO DAILY for DEPRESSION, #30 TAB 5 Refills 11/21/21 Metoprolol Succinate (Metoprolol Succinate Er) 50 Mg Tab, 50 MG PO DAILY for BLOOD PRESSURE NEW DISCHARGE MED IS METOPROLOL SUCC ER 25 MG BID, BUT PATIENT HAS NOT STARTED TAKING YET AND WOULD LIKE TO BE KEPT ON 50 MG DAILY 07/12/20 Mupirocin Calcium (Topical) (MUPIROCIN) 2 % Cre, 1 APPLIC TOP BID for Skin infection PER PATIENT'S HOME MED LIST: APPLY TOPICALLY TO OPEN WOUNDS BID PT USES 2 GRAMS BID 01/18/20 Docusate Sodium (DOCQLACE) 100 Mg Cap, 100 MG PO DAILY PRN for FOR CONSTIPATION, CAP 06/04/18 Albuterol Sulfate (VENTOLIN MDI) 90 Mcg Ih, 2 PUFF IN Q6HPRN PRN for SHORTNESS OF BREATH EXTERNAL MED HX SAYS Q4HR. PATIENT USES Q6HR PRN 06/04/18 Clopidogrel Bisulfate (CLOPIDOGREL) 75 Mg Tab, 75 MG PO DAILY 06/04/18 Current Medications Current Medications Medications (Trade) Dose Ordered Sig/Kitty Route PRN Reason Start Time Stop Time Status Last Admin Albuterol (Ventolin Hfa) 90 mcg Q6HPRN PRN IN SHORTNESS OF BREATH 07/29/24 21:00 07/29/24 21:21 DC Albuterol (Ventolin Medneb) 2.5 mg Q4HPRN PRN NEB [facility] 07/29/24 21:00 Betamethasone Dipropion Augmented (Diprosone 0.05% Cream) 1 applic DAILY TOP 07/30/24 10:00 Clopidogrel Bisulfate (Plavix) 75 mg DAILY PO 07/30/24 10:00 Docusate Sodium (Colace Capsule) 100 mg DAILY PRN PO FOR CONSTIPATION 07/29/24 21:00 Duloxetine HCl (Cymbalta Capsule) 30 mg DAILY PO 07/30/24 10:00 Empaglifozin (Jardiance) 10 mg DAILY PO 07/30/24 10:00 Metoprolol Succinate (Toprol Xl) 50 mg DAILY PO 07/30/24 10:00 Multivitamins (Mvi Tab) 1 tab DAILY PO 07/30/24 10:00 Oxybutynin Chloride (Ditropan Tablet) 10 mg DAILY PO 07/30/24 10:00 Pantoprazole Sodium (Protonix Tablet) 40 mg QAM PO 07/30/24 07:00 Valsartan (Diovan) 160 mg DAILY PO 07/30/24 10:00 UNV Patient Own Medication 1 tab DAILY PO 07/30/24 10:00 UNV Patient Own Medication 1 applic BID TD 07/29/24 22:00 07/29/24 21:22 DC Patient Own Medication 1 tab DAILY PO 07/30/24 10:00 UNV Patient Own Medication 1 applic BID TOP 07/29/24 22:00 UNV Patient Own Medication 20 mg Q8HPRN PRN PO PAIN SCALE 7 THRU 10 07/29/24 21:00 UNV Patient Own Medication 1 tab DAILY PO 07/30/24 10:00 UNV Patient Own Medication 4 mg BID PO 07/29/24 22:00 UNV Patient Own Medication 1 tab DAILY PO 07/30/24 10:00 UNV Nitroglycerin (Ntrostat Sublingual) 0.4 mg Q5MINP PRN SL FOR CHEST PAIN 07/29/24 21:15 Morphine Sulfate 2 mg Q30M PRN IV FOR CHEST PAIN 07/29/24 21:15 Vital Signs Vital Signs Date Time Temp Pulse Resp B/P (MAP) Pulse Ox O2 Delivery O2 Flow Rate FiO2 07/29/24 20:31 98.3 73 20 114/71 (85) 98 98.3 SULY CARDOZO MD July 29, 2024 21:32
[2024-07-29 21:36] VITALS: PULSE 64; RESP 16; O2SAT 97
[2024-07-29] MEDS: ALBUTEROL SULF 2.5 MG/0.5ML(0.5%) NEB SOLN NEB PRN (21:36)
[2024-07-29 21:42] VITALS: PULSE 67; RESP 16; O2SAT 100
[2024-07-29 21:47] LABS: Basophils # (auto) 0.1 10 ^3/uL (0-0.2); Nucleated Red Blood Cells % 0.1 %; Platelet Count (auto) 286 10^3/uL (140-450); Red Cell Distribution Width 15.7 % (11.8-14.3); White Blood Cell 11.5 10^3/uL (4.4-10.8)
[2024-07-29 21:49] LABS: Basophils % (auto) 0.9 % (0.0-2.0); Eosinophils % (auto) 8.4 % (0.0-7.0); Hematocrit 35.3 % (36.0-46.0); Hemoglobin 11.2 g/dL (12.2-16.2); Lymphocytes # (auto) 2.2 10 ^3/uL (0.4-5.4); Lymphocytes % (auto) 18.7 % (10.0-50.0); Mean Corpuscular Hemoglobin 24.8 pg (28.0-32.0); Mean Corpuscular Hgb Conc. 31.5 g/dL (32.0-36.0); Mean Corpuscular Volume 78.5 fL (80.0-100.0); Monocytes # (auto) 1.1 10 ^3/uL (0-1.3); Monocytes % (auto) 9.8 % (0.0-12.0); Neutrophils # (auto) 7.2 10 ^3/uL (1.6-8.6); Neutrophils % (auto) 62.2 % (37.0-80.0)
[2024-07-29 21:58] LABS: Potassium 3.6 mmol/L (3.5-5.1); Sodium 143 mmol/L (136-145)
[2024-07-29 21:59] VITALS: BP 114/71; PULSE 67; RESP 16; TEMP 98.7; O2SAT 97
[2024-07-29 21:59] LABS: Anion Gap 9 (5-15); Calcium 8.7 mg/dL (8.7-10.4); Carbon Dioxide 26 mmol/L (20-31)
[2024-07-29] MEDS ORDERED: BETAMETHASONE DIPROPIONATE TD SCH (22:00)
[2024-07-29 22:04] LABS: BUN/Creatinine Ratio 18.8 (10.0-20.0); Blood Urea Nitrogen 13 mg/dL (9-23)
[2024-07-29 22:15] LABS: Chloride 108 mmol/L (98-107); Glucose 111 mg/dL (74-106); Magnesium 1.6 mg/dL (1.6-2.6)
[2024-07-29] MEDS: oxyCODONE HCL 5MG TAB PO PRN (23:26)
[2024-07-30] VITALS (13 sets, daily range): BP systolic 110–150; BP diastolic 57–85; PULSE 61–79; RESP 16–20; TEMP 98.1–98.6; O2SAT 95–100
[2024-07-30] MEDS: PANTOPRAZOLE 40 MG TAB PO SCH (06:38)
[2024-07-30 08:01] LABS: Hematocrit 34.2 % (36.0-46.0); Hemoglobin 10.9 g/dL (12.2-16.2); Lymphocytes # (auto) 2.1 10 ^3/uL (0.4-5.4); Mean Corpuscular Hemoglobin 24.8 pg (28.0-32.0); Mean Corpuscular Hgb Conc. 31.9 g/dL (32.0-36.0); Mean Corpuscular Volume 77.8 fL (80.0-100.0); Monocytes # (auto) 0.9 10 ^3/uL (0-1.3); Monocytes % (auto) 9.2 % (0.0-12.0); Red Blood Cells 4.39 10^6/uL (4.0-5.20)
[2024-07-30 08:03] LABS: Basophils # (auto) 0.1 10 ^3/uL (0-0.2); Basophils % (auto) 0.6 % (0.0-2.0); Eosinophils # (auto) 1.3 10 ^3/uL (0-0.8); Eosinophils % (auto) 13.3 % (0.0-7.0); Lymphocytes % (auto) 20.7 % (10.0-50.0); Neutrophils # (auto) 5.7 10 ^3/uL (1.6-8.6); Neutrophils % (auto) 56.2 % (37.0-80.0); Platelet Count (auto) 289 10^3/uL (140-450); Red Cell Distribution Width 15.3 % (11.8-14.3); White Blood Cell 10.1 10^3/uL (4.4-10.8)
[2024-07-30 08:22] LABS: Alanine Aminotransferase 10 U/L (7-40); Albumin 3.7 g/dL (3.2-4.8); Alkaline Phosphatase 100 U/L (46-116); Anion Gap 8 (5-15); Aspartate Aminotransferase 12 U/L (13-40); BUN/Creatinine Ratio 19.7 (10.0-20.0); Blood Urea Nitrogen 12 mg/dL (9-23); Calcium 9.2 mg/dL (8.7-10.4); Carbon Dioxide 24 mmol/L (20-31); Chloride 108 mmol/L (98-107); Cholesterol 103 mg/dL (< 200); Glucose 122 mg/dL (74-106); LDL Cholesterol 56 mg/dL (< 100); Potassium 3.5 mmol/L (3.5-5.1); Sodium 140 mmol/L (136-145); Total Protein 6.8 g/dL (5.7-8.2); Triglycerides 109 mg/dL (< 150)
[2024-07-30 08:23] LABS: Bilirubin, Total 0.3 mg/dL (0.2-1.0); HDL Cholesterol 34 mg/dL (40-59)
--- NOTE | 2024-07-30 09:33 | DVH ---
XY CHEST TWO VIEWS ROUTINE CLINICAL HISTORY: COPD COMPARISON: XY CHEST TWO VIEWS ROUTINE on DOS: 05/30/24, XY CHEST TWO VIEWS ROUTINE on DOS: 02/15/24, X Y CHEST TWO VIEWS ROUTINE on DOS: 07/13/23, CXR2 on DOS: 01/15/22, CHEST TWO VIEWS ROUTINE on DOS: TECHNIQUE: Frontal and lateral view of the chest was obtained FINDINGS: Lines and Tubes: None Lungs: No focal consolidation. Pleura: No effusion. No pneumothorax. Cardiomediastinal contours: Unremarkable Bones: No acute osseous abnormality. IMPRESSION: No acute cardiopulmonary disease.
[2024-07-30] MEDS: ARIPIPRAZOLE 10 MG PO SCH (10:00)
[2024-07-30] MEDS: TIZANIDINE HYDROCHLORIDE 4 MG PO SCH (10:00)
[2024-07-30] MEDS: hydroCHLOROthiazide 25 MG TAB PO SCH (10:00)
[2024-07-30] MEDS: CLOPIDOGREL BISULFATE 75 MG TAB PO SCH (10:00)
[2024-07-30] MEDS: MUPIROCIN 2% OINT 15gm or 22gm TOP SCH (10:00)
[2024-07-30] MEDS: ATORVASTATIN 20 MG TAB PO SCH (10:32)
[2024-07-30] MEDS: CITALOPRAM HYDROBR 20 MG TAB PO SCH (10:32)
[2024-07-30] MEDS: MULTIPLE VITAMIN TAB PO SCH (10:33)
[2024-07-30] MEDS: LOSARTAN POTASSIUM 50 MG TAB PO SCH (10:33)
[2024-07-30] MEDS: VALSARTAN 80 MG TAB PO SCH (10:33)
[2024-07-30] MEDS: EMPAGLIFLOZIN 10 MG TAB PO SCH (10:34)
[2024-07-30] MEDS: DULoxetine HCL 30 MG CAP PO SCH (10:34)
[2024-07-30] MEDS: OXYBUTYNIN CHL 5 MG TAB PO SCH (10:34)
[2024-07-30] MEDS: METOPROLOL SUCCINATE XL 50 MG TAB PO SCH (10:35)
[2024-07-30 11:21] LABS: Urine Bacteria FEW /hpf (None Seen); Urine Blood TRACE /uL (Negative); Urine Clarity Turbid (Clear); Urine Color Light-Yellow (Yellow); Urine Mucus FEW (None Seen); Urine Protein, UAD 1+ (Negative); Urine Specific Gravity 1.017 (1.001-1.035); Urine Squamous Epithelial Cell FEW /hpf (<5); Urine Urobilinogen Normal (Negative); Urine WBC 265 /HPF (0-5); Urine pH 6.5 (5.0-9.0)
[2024-07-30] MEDS: BETAMETHASONE DIPROP0.05% TOPICAL CREAM 15GM TOP SCH (13:30)
--- NOTE | 2024-07-30 13:45 | DVH ---
EXAM: XY R KNEE 3V XRAY CLINICAL INDICATION: effusion TECHNIQUE: XY R KNEE 3V XRAY Comparison: XY R KNEE 3V XRAY on DOS: 07/11/24, XY L KNEE 4V XRAY on DOS: 07/06/24 FINDINGS/IMPRESSION: There is no evidence of acute fracture or dislocation. Moderate right knee osteoarthritis with chondrocalcinosis. Small joint effusion The alignment is anatomical. There is no radiopaque foreign body.
--- NOTE | 2024-07-30 23:58 | DVHPN2 ---
Progress Note - Dictate Medical Necessity Reason Medical Necessity Reason Right knee pains Subjective Patient continues to have pains in her right knee with soft tissue edema X-ray was remarkable for osteoarthritis with effusion Patient was been referred to Dr. [place] Patient receives pain management through IV Toradol and oxycodone vital signs Vital Sign Date Time Temp Pulse Resp B/P (MAP) Pulse Ox O2 Delivery O2 Flow Rate FiO2 07/30/24 21:00 98.3 68 16 129/66 (87) 100 98.3 07/30/24 19:15 Nasal Cannula 2.0 07/30/24 19:15 28 Total Intake and Output 07/29/24 07/29/24 07/30/24 15:00 23:00 07:00 Intake Total 170 ml Balance 170 ml medications Current Medications Medications Dose Ordered Sig/Kitty Route Start Time Stop Time Status Last Admin Dose Admin Albuterol 2.5 mg Q4HPRN PRN NEB 07/29/24 21:00 07/30/24 13:08 2.5 MG Betamethasone Dipropion Augmented 1 applic DAILY TOP 07/30/24 10:00 07/30/24 13:30 1 APPLIC Clopidogrel Bisulfate 75 mg DAILY PO 07/30/24 10:00 07/30/24 10:34 75 MG Docusate Sodium 100 mg DAILY PRN PO 07/29/24 21:00 Duloxetine HCl 30 mg DAILY PO 07/30/24 10:00 07/30/24 10:34 30 MG Empaglifozin 10 mg DAILY PO 07/30/24 10:00 07/30/24 10:34 10 MG Metoprolol Succinate 50 mg DAILY PO 07/30/24 10:00 07/30/24 10:35 50 MG Multivitamins 1 tab DAILY PO 07/30/24 10:00 07/30/24 10:33 1 TAB Oxybutynin Chloride 10 mg DAILY PO 07/30/24 10:00 07/30/24 10:34 10 MG Pantoprazole Sodium 40 mg QAM PO 07/30/24 07:00 07/30/24 06:38 40 MG Valsartan 160 mg DAILY PO 07/30/24 10:00 07/30/24 10:33 160 MG Patient Own Medication 1 tab DAILY PO 07/30/24 10:00 Citalopram Hydrobromide 40 mg DAILY PO 07/30/24 10:00 07/30/24 10:32 40 MG Oxycodone HCl 20 mg Q8HPRN PRN PO 07/29/24 23:00 07/30/24 23:18 20 MG Atorvastatin Calcium 40 mg DAILY PO 07/30/24 10:00 07/30/24 10:32 40 MG Patient Own Medication 4 mg BID PO 07/30/24 10:00 Losartan Potassium 100 mg DAILY PO 07/30/24 10:00 07/30/24 10:33 100 MG Nitroglycerin 0.4 mg Q5MINP PRN SL 07/29/24 21:15 Morphine Sulfate 2 mg Q30M PRN IV 07/29/24 21:15 Hydrochlorothiazide 12.5 mg DAILY PO 07/30/24 10:00 Mupirocin 1 applic BID TOP 07/31/24 10:00 UNV laboratory and microbiology Laboratory Tests 07/30/24 07:07 Test 07/30/24 07:07 Range/Units Serum Glucose 122 H 74-106 mg/dL Problem List acute asthmatic bronchitis Severe osteoarthritis of R knee with effusion Morbid obesity SULY CARDOZO MD July 30, 2024 23:58
[2024-07-31] VITALS (16 sets, daily range): BP systolic 133–155; BP diastolic 63–79; PULSE 59–91; RESP 12–30; TEMP 97.8–98.1; O2SAT 95–100
[2024-07-31] MEDS: INSULIN LISPRO (HUMAN) 100 UNITS/ML ML SC SCH ×2 (06:30→21:16)
[2024-07-31] MEDS: oxyCODONE HCL 5MG TAB PO PRN (10:00)
[2024-07-31] MEDS: ACETAMINOPHEN 325 MG TAB PO PRN (10:01)
[2024-07-31] MEDS: MUPIROCIN 2% OINT 15gm or 22gm TOP SCH (10:05)
--- NOTE | 2024-07-31 23:54 | DVHPN2 ---
Progress Note - Dictate Date Seen: July 31, 2024 Subjective Patient continues to have pains in her right knee with soft tissue edema X-ray was remarkable for osteoarthritis with effusion Patient was been referred to Dr. [place] Patient receives pain management through IV Toradol and oxycodone vital signs Vital Sign Date Time Temp Pulse Resp B/P (MAP) Pulse Ox O2 Delivery O2 Flow Rate FiO2 07/31/24 21:00 98.1 63 18 133/72 (92) 100 98.1 07/31/24 19:33 Room Air* 0 21 Total Intake and Output 07/30/24 07/30/24 07/31/24 15:00 23:00 07:00 Intake Total 1380 ml 300 ml Output Total 450 ml Balance 1380 ml -150 ml medications Current Medications Medications Dose Ordered Sig/Kitty Route Start Time Stop Time Status Last Admin Dose Admin Albuterol 2.5 mg Q4HPRN PRN NEB 07/29/24 21:00 07/31/24 19:32 2.5 MG Betamethasone Dipropion Augmented 1 applic DAILY TOP 07/30/24 10:00 07/31/24 10:05 1 APPLIC Clopidogrel Bisulfate 75 mg DAILY PO 07/30/24 10:00 07/30/24 10:34 75 MG Docusate Sodium 100 mg DAILY PRN PO 07/29/24 21:00 Duloxetine HCl 30 mg DAILY PO 07/30/24 10:00 07/31/24 10:01 30 MG Empaglifozin 10 mg DAILY PO 07/30/24 10:00 07/31/24 10:01 10 MG Metoprolol Succinate 50 mg DAILY PO 07/30/24 10:00 07/31/24 10:03 50 MG Multivitamins 1 tab DAILY PO 07/30/24 10:00 07/31/24 10:01 1 TAB Oxybutynin Chloride 10 mg DAILY PO 07/30/24 10:00 07/31/24 10:02 10 MG Pantoprazole Sodium 40 mg QAM PO 07/30/24 07:00 07/31/24 06:23 40 MG Valsartan 160 mg DAILY PO 07/30/24 10:00 07/31/24 10:02 160 MG Patient Own Medication 1 tab DAILY PO 07/30/24 10:00 Citalopram Hydrobromide 40 mg DAILY PO 07/30/24 10:00 07/31/24 09:59 40 MG Atorvastatin Calcium 40 mg DAILY PO 07/30/24 10:00 07/31/24 10:02 40 MG Patient Own Medication 4 mg BID PO 07/30/24 10:00 Losartan Potassium 100 mg DAILY PO 07/30/24 10:00 07/31/24 10:01 100 MG Nitroglycerin 0.4 mg Q5MINP PRN SL 07/29/24 21:15 Morphine Sulfate 2 mg Q30M PRN IV 07/29/24 21:15 Hydrochlorothiazide 12.5 mg DAILY PO 07/30/24 10:00 Mupirocin 1 applic BID TOP 07/31/24 10:00 07/31/24 10:05 1 APPLIC Oxycodone HCl 15 mg Q6HPRN PRN PO 07/31/24 00:00 07/31/24 21:27 15 MG Insulin Human Lispro AC SC 07/31/24 07:00 07/31/24 17:58 2 UNITS Insulin Human Lispro HS SC 07/31/24 22:00 Acetaminophen 650 mg Q6HP PRN PO 07/31/24 07:30 07/31/24 10:01 650 MG laboratory and microbiology Laboratory Tests 07/30/24 07:07 Test 07/30/24 07:07 Range/Units Serum Glucose 122 H 74-106 mg/dL Problem List acute asthmatic bronchitis Severe osteoarthritis of R knee with effusion Morbid obesity SULY CARDOZO MD July 31, 2024 23:54
[2024-08-01] VITALS (14 sets, daily range): BP systolic 109–135; BP diastolic 55–71; PULSE 61–88; RESP 16–20; TEMP 98.1–98.5; O2SAT 95–100
--- NOTE | 2024-08-01 11:59 | DVHINCON2 ---
Date of service: August 01, 2024 Reason for Consultation Right knee pain/swelling History of Present Illness 64 yo F with multiple medical issues with acute right knee pain x 2 weeks. She states this is worse then her baseline pain and has trouble bearing weight on this leg. Hx of open ulcers recently and has been on a steroid cream. No current fever/chills/cp/sob/abd pain Past Medical History hypertension, diabetes, hypercholesterolemia, obesity, fibromyalgia, coronary artery disease, COPD, chronic pain Family History: Cardiovascular disease G8 FATHER, Onset: - Diabetes mellitus FHx: cancer G8 MOTHER, Onset: - Hypertension G8 MOTHER, Onset: - G8 FATHER, Onset: Allergies: Coded Allergies: Benzalkonium Chloride (Verified Allergy, Unknown, 07/08/18) Dupilumab (Verified Allergy, Unknown, 05/30/24) Lisinopril (Verified Allergy, Unknown, 07/08/18) Sorbitan (Verified Allergy, Unknown, 05/30/24) Home Meds Active Scripts Valsartan (Valsartan) 80 Mg Tab, 160 MG PO DAILY for 90 Days, #180 TAB Prov:SULY CARDOZO MD 07/14/24 Amoxicillin & Pot Clavulanate (AUGMENTIN TABLET) 875 Mg Tb, 875 MG PO BID for 7 Days, #14 TAB Prov:SULY CARDOZO MD 07/14/24 Betamethasone Dipropionate (Betamethasone Dipropionat) 0.05 % Cre, 1 APPLIC TOP DAILY for 30 Days, #60 GM Prov:SULY CARDOZO MD 07/13/24 Albuterol Sulfate (Ventolin) 2.5 Mg/0.5 Ml Nb, 2.5 MG NEB Q4HPRN PRN for 50 Days, #100 ML 1 Refill Prov:SULY CARDOZO MD 01/20/22 Reported Medications Multiple Vitamin (Multivitamins) Tab, 1 TAB PO DAILY, #90 TAB 3 Refills 05/29/24 Celecoxib (Celebrex) 200 Mg Cap, 200 MG PO HS, CAP 05/29/24 Betamethasone Dipropionate (Betamethasone Dipropionat) 0.05 % Oin, 1 APPLIC TD BID 05/29/24 Duloxetine HCl (Duloxetine HCl) 30 Mg Cap, 30 MG PO DAILY 3/7/25 Tizanidine Hydrochloride (Tizanidine Hcl) 4 Mg Tab, 4 MG PO BID 05/29/24 Oxybutynin Chloride (Oxybutynin Chloride) 5 Mg Tab, 10 MG PO DAILY 05/29/24 Oxycodone HCl (Oxycodone Hydrochloride) 20 Mg Tab, 20 MG PO Q8HPRN PRN for PAIN SCALE 7 THRU 10 05/29/24 Valsartan-Hydrochlorothiazide (Diovan Hct) 160 /12.5 Tab, 1 TAB PO DAILY 05/15/23 Aripiprazole (Aripiprazole) 10 Mg Tab, 1 TAB PO DAILY 05/15/23 Metformin Hydrochloride (Metformin Hcl Er) 750 Mg Tab, 1 TAB PO DAILY, #90 TAB 3 Refills 05/12/23 Rosuvastatin Calcium (Crestor) 20 Mg Tab, 1 TAB PO DAILY for LOWER BAD CHOLESTEROL, #30 TAB 5 Refills 04/03/22 Pantoprazole Sodium Sesquihydr (Pantoprazole Sodium) 40 Mg Tab, 40 MG PO QAM for GERD, TAB PRIOR TO BREAKFAST PER PT SHOULD STILL BE ON THIS MEDICATION EVEN THOUGH NO P/UP HISTORY IN EXTERNAL MED 11/21/21 Empagliflozin (Jardiance) 10 Mg Tab, 10 MG PO DAILY for DIABETES, TAB 11/21/21 Escitalopram Oxalate (ESCITALOPRAM OXALATE) 20 Mg Tab, 1 TAB PO DAILY for DEPRESSION, #30 TAB 5 Refills 11/21/21 Metoprolol Succinate (Metoprolol Succinate Er) 50 Mg Tab, 50 MG PO DAILY for BLOOD PRESSURE NEW DISCHARGE MED IS METOPROLOL SUCC ER 25 MG BID, BUT PATIENT HAS NOT STARTED TAKING YET AND WOULD LIKE TO BE KEPT ON 50 MG DAILY 07/12/20 Mupirocin Calcium (Topical) (MUPIROCIN) 2 % Cre, 1 APPLIC TOP BID for Skin infection PER PATIENT'S HOME MED LIST: APPLY TOPICALLY TO OPEN WOUNDS BID PT USES 2 GRAMS BID 01/18/20 Docusate Sodium (DOCQLACE) 100 Mg Cap, 100 MG PO DAILY PRN for FOR CONSTIPATION, CAP 06/04/18 Albuterol Sulfate (VENTOLIN MDI) 90 Mcg Ih, 2 PUFF IN Q6HPRN PRN for SHORTNESS OF BREATH EXTERNAL MED HX SAYS Q4HR. PATIENT USES Q6HR PRN 06/04/18 Clopidogrel Bisulfate (CLOPIDOGREL) 75 Mg Tab, 75 MG PO DAILY 06/04/18 Current Medications Current Medications Medications (Trade) Dose Ordered Sig/Kitty Route PRN Reason Start Time Stop Time Status Last Admin Insulin Human Lispro (HumaLOG) HS SC 07/31/24 22:00 Review of Systems 10 point ROS is neg except per HPI Vital Signs Vital Signs Date Time Temp Pulse Resp B/P (MAP) Pulse Ox O2 Delivery O2 Flow Rate FiO2 08/01/24 10:00 97 Room Air* 0 21 08/01/24 09:52 124/66 08/01/24 09:52 73 08/01/24 08:14 98.2 17 98.2 Physical Exam NAD AOx3 verbal wn wd RLE +rash around leg +effusion Knee ROM 0-80 Labs/Diagnostic Data Labs Test 08/01/24 05:48 07/30/24 07:07 07/30/24 05:42 07/29/24 21:32 Range/Units POC Glucose 97 70-106 mg/dl White Blood Count 10.1 4.4-10.8 10^3/uL Red Blood Count 4.39 4.0-5.20 10^6/uL Hemoglobin 10.9 L 12.2-16.2 g/dL Hematocrit 34.2 L 36.0-46.0 % Mean Corpuscular Volume 77.8 L 80.0-100.0 fL Mean Corpuscular Hemoglobin 24.8 L 28.0-32.0 pg Mean Corpuscular Hemoglobin Concent 31.9 L 32.0-36.0 g/dL Red Cell Distribution Width 15.3 H 11.8-14.3 % Platelet Count 289 140-450 10^3/uL Mean Platelet Volume 7.9 6.9-10.8 fL Neutrophils (%) (Auto) 56.2 37.0-80.0 % Lymphocytes (%) (Auto) 20.7 10.0-50.0 % Monocytes (%) (Auto) 9.2 0.0-12.0 % Eosinophils (%) (Auto) 13.3 H 0.0-7.0 % Basophils (%) (Auto) 0.6 0.0-2.0 % Neutrophils # (Auto) 5.7 1.6-8.6 10 ^3/uL Lymphocytes # (Auto) 2.1 0.4-5.4 10 ^3/uL Monocytes # (Auto) 0.9 0-1.3 10 ^3/uL Eosinophils # (Auto) 1.3 H 0-0.8 10 ^3/uL Basophils # (Auto) 0.1 0-0.2 10 ^3/uL Nucleated Red Blood Cells 0.0 % Sodium Level 140 136-145 mmol/L Potassium Level 3.5 3.5-5.1 mmol/L Chloride Level 108 H 98-107 mmol/L Carbon Dioxide Level 24 20-31 mmol/L Anion Gap 8 5-15 Blood Urea Nitrogen 12 9-23 mg/dL Creatinine 0.61 0.550-1.02 mg/dL Glomerular Filtration Rate Calc 99 >90 mL/min BUN/Creatinine Ratio 19.7 10.0-20.0 Serum Glucose 122 H 74-106 mg/dL Calcium Level 9.2 8.7-10.4 mg/dL Total Bilirubin 0.3 0.2-1.0 mg/dL Aspartate Amino Transferase (AST) 12 L 13-40 U/L Alanine Aminotransferase (ALT) 10 7-40 U/L Alkaline Phosphatase 100 46-116 U/L Total Protein 6.8 5.7-8.2 g/dL Albumin 3.7 3.2-4.8 g/dL Triglycerides Level 109 < 150 mg/dL Cholesterol Level 103 < 200 mg/dL LDL Cholesterol 56 < 100 mg/dL HDL Cholesterol 34 L 40-59 mg/dL Urine Color Light-yellow Yellow Urine Clarity Turbid H Clear Urine pH 6.5 5.0-9.0 Urine Specific [place] 1.017 1.001-1.035 Urine Protein 1+ H Negative Urine Ketones Negative Negative Urine Blood Trace H Negative /uL Urine Nitrite Negative Negative Urine Bilirubin Negative Negative Urine Urobilinogen Normal Negative mg/dL Urine Leukocyte Esterase 3+ Negative /uL Urine RBC 26 0 - 4 /hpf Urine Microscopic WBC 265 H 0-5 /HPF Urine Squamous Epithelial Cells Few <5 /hpf Urine Bacteria Few H None Seen /hpf Urine Mucus Few None Seen Urine Glucose 4+ H Normal mg/dL D-Dimer, Quantitative 1.31 H 0.0-0.49 mg/L FEU Phosphorus Level 3.0 2.4-5.1 mg/dL Magnesium Level 1.6 1.6-2.6 mg/dL Microbiology Date/Time Source Procedure Growth Status 07/30/24 05:42 Nose MRSA Screen - Final Complete 07/30/24 05:42 Urine - Catheterized Urine Culture - Preliminary Resulted Plan/Recommendation 64 yo F with right knee effusion/ underlying arthritis 1. At this point we will rule out a septic knee 2. ESR/CRP -- if elevated will aspirate the knee 3. Pain control 4. continue to work on ROM Plan discussed with: Patient ANGELO DOUGLAS MD August 01, 2024 11:59
[2024-08-01 14:23] LABS: Erythrocyte Sedimentation Rate 28 mm/hr (0-20)
--- NOTE | 2024-08-01 20:52 | DVHPN2 ---
Progress Note - Dictate Date Seen: August 01, 2024 Subjective Patient continues to have pains in her right knee with soft tissue edema X-ray was remarkable for osteoarthritis with effusion Patient was been referred to Dr. [place] Patient receives pain management through IV Toradol and oxycodone vital signs Vital Sign Date Time Temp Pulse Resp B/P (MAP) Pulse Ox O2 Delivery O2 Flow Rate FiO2 08/01/24 16:44 98.1 66 17 135/66 (89) 95 98.1 08/01/24 11:38 Room Air 0.0 08/01/24 11:38 21 Total Intake and Output 07/31/24 07/31/24 08/01/24 15:00 23:00 07:00 Intake Total 980 ml 820 ml Balance 980 ml 820 ml medications Current Medications Medications Dose Ordered Sig/Kitty Route Start Time Stop Time Status Last Admin Dose Admin Albuterol 2.5 mg Q4HPRN PRN NEB 07/29/24 21:00 08/01/24 19:22 2.5 MG Betamethasone Dipropion Augmented 1 applic DAILY TOP 07/30/24 10:00 08/01/24 09:56 1 APPLIC Clopidogrel Bisulfate 75 mg DAILY PO 07/30/24 10:00 07/30/24 10:34 75 MG Docusate Sodium 100 mg DAILY PRN PO 07/29/24 21:00 Duloxetine HCl 30 mg DAILY PO 07/30/24 10:00 08/01/24 09:52 30 MG Empaglifozin 10 mg DAILY PO 07/30/24 10:00 08/01/24 09:53 10 MG Metoprolol Succinate 50 mg DAILY PO 07/30/24 10:00 08/01/24 09:52 50 MG Multivitamins 1 tab DAILY PO 07/30/24 10:00 08/01/24 09:52 1 TAB Oxybutynin Chloride 10 mg DAILY PO 07/30/24 10:00 08/01/24 09:52 10 MG Pantoprazole Sodium 40 mg QAM PO 07/30/24 07:00 08/01/24 05:57 40 MG Valsartan 160 mg DAILY PO 07/30/24 10:00 08/01/24 09:51 160 MG Patient Own Medication 1 tab DAILY PO 07/30/24 10:00 08/01/24 09:50 1 TAB Citalopram Hydrobromide 40 mg DAILY PO 07/30/24 10:00 08/01/24 09:51 40 MG Atorvastatin Calcium 40 mg DAILY PO 07/30/24 10:00 08/01/24 09:53 40 MG Patient Own Medication 4 mg BID PO 07/30/24 10:00 Losartan Potassium 100 mg DAILY PO 07/30/24 10:00 08/01/24 09:52 100 MG Nitroglycerin 0.4 mg Q5MINP PRN SL 07/29/24 21:15 Morphine Sulfate 2 mg Q30M PRN IV 07/29/24 21:15 Hydrochlorothiazide 12.5 mg DAILY PO 07/30/24 10:00 Mupirocin 1 applic BID TOP 07/31/24 10:00 07/31/24 10:05 1 APPLIC Oxycodone HCl 15 mg Q6HPRN PRN PO 07/31/24 00:00 08/01/24 17:11 15 MG Insulin Human Lispro AC SC 07/31/24 07:00 07/31/24 17:58 2 UNITS Insulin Human Lispro HS SC 07/31/24 22:00 Acetaminophen 650 mg Q6HP PRN PO 07/31/24 07:30 08/01/24 17:11 650 MG laboratory and microbiology Laboratory Tests 07/30/24 07:07 Test 07/30/24 07:07 Range/Units Serum Glucose 122 H 74-106 mg/dL Problem List Suspect septic arthritis of R knee acute asthmatic bronchitis Severe osteoarthritis of R knee with effusion Morbid obesity Dietary Evaluation Review Recommendations by RD: Dietary education by RD, Protein Supplementation Comments: 1) Initiate Glucerna @ 8 fl oz bid. Encourage optimal PO intake 2) Initiate vitamin C @ 500 mg bid and zinc sulfate @ 220 mg qd for 7-10 days 3) Refer to outpatient RD/[facility] for weight management 4) Follow-up with pulmonology and rheumatology 5) Continue to monitor I&O, labs, and skin integrity Expected Outcomes/Goals: 1) appetite and labs to improve 2) wound to improve 3) follow-up in 3-5 days SULY CARDOZO MD August 01, 2024 20:52
[2024-08-02] VITALS (15 sets, daily range): BP systolic 105–142; BP diastolic 45–67; PULSE 62–93; RESP 16–98; TEMP 98.1–98.7; O2SAT 92–100
[2024-08-02] MEDS: DOCUSATE SOD 100 MG CAP PO PRN (05:54)
--- NOTE | 2024-08-02 15:42 | DVHPN2 ---
Progress Note Date Seen: August 02, 2024 Medical Necessity Reason Pt with a Central, PICC or Fol: No Subjective Patient reports: No new complaints Objective vital signs Vital Sign Date Time Temp Pulse Resp B/P (MAP) Pulse Ox O2 Delivery O2 Flow Rate FiO2 08/02/24 15:26 77 18 98 08/02/24 15:26 Room Air 0.0 08/02/24 15:26 21 08/02/24 12:43 98.3 105/45 (65) 98.3 Total Intake and Output 08/01/24 08/01/24 08/02/24 15:00 23:00 07:00 Intake Total 600 ml Output Total 600 ml Balance 0 ml medications Current Medications Medications Dose Ordered Sig/Kitty Route Start Time Stop Time Status Last Admin Dose Admin Albuterol 2.5 mg Q4HPRN PRN NEB 07/29/24 21:00 08/02/24 15:26 2.5 MG Betamethasone Dipropion Augmented 1 applic DAILY TOP 07/30/24 10:00 08/02/24 10:02 1 APPLIC Clopidogrel Bisulfate 75 mg DAILY PO 07/30/24 10:00 07/30/24 10:34 75 MG Docusate Sodium 100 mg DAILY PRN PO 07/29/24 21:00 08/02/24 05:54 100 MG Duloxetine HCl 30 mg DAILY PO 07/30/24 10:00 08/02/24 09:56 30 MG Empaglifozin 10 mg DAILY PO 07/30/24 10:00 08/02/24 09:55 10 MG Metoprolol Succinate 50 mg DAILY PO 07/30/24 10:00 08/02/24 09:55 50 MG Multivitamins 1 tab DAILY PO 07/30/24 10:00 08/02/24 09:56 1 TAB Oxybutynin Chloride 10 mg DAILY PO 07/30/24 10:00 08/02/24 09:56 10 MG Pantoprazole Sodium 40 mg QAM PO 07/30/24 07:00 08/02/24 05:54 40 MG Valsartan 160 mg DAILY PO 07/30/24 10:00 08/02/24 09:57 160 MG Patient Own Medication 1 tab DAILY PO 07/30/24 10:00 08/02/24 09:57 1 TAB Citalopram Hydrobromide 40 mg DAILY PO 07/30/24 10:00 08/02/24 09:56 40 MG Atorvastatin Calcium 40 mg DAILY PO 07/30/24 10:00 08/02/24 09:56 40 MG Patient Own Medication 4 mg BID PO 07/30/24 10:00 Losartan Potassium 100 mg DAILY PO 07/30/24 10:00 08/02/24 09:57 100 MG Nitroglycerin 0.4 mg Q5MINP PRN SL 07/29/24 21:15 Morphine Sulfate 2 mg Q30M PRN IV 07/29/24 21:15 Hydrochlorothiazide 12.5 mg DAILY PO 07/30/24 10:00 Mupirocin 1 applic BID TOP 07/31/24 10:00 07/31/24 10:05 1 APPLIC Oxycodone HCl 15 mg Q6HPRN PRN PO 07/31/24 00:00 08/02/24 02:00 15 MG Insulin Human Lispro AC SC 07/31/24 07:00 07/31/24 17:58 2 UNITS Insulin Human Lispro HS SC 07/31/24 22:00 Acetaminophen 650 mg Q6HP PRN PO 07/31/24 07:30 08/01/24 17:11 650 MG Examination: GENERAL:Normal, MSK:Abnormal laboratory and microbiology Laboratory Tests 07/30/24 07:07 Test 07/30/24 07:07 Range/Units Serum Glucose 122 H 74-106 mg/dL Microbiology Date/Time Source Procedure Growth Status 07/30/24 05:42 Nose MRSA Screen - Final Complete 07/30/24 05:42 Urine - Catheterized Urine Culture - Final Complete Problem List/Assessment/Plan Problem List/Assessment/Plan Right knee effusion rule out septic knee 1. I had a long thorough discussion with the patient regarding her condition. 2. ESR and CRP are both elevated 3. Under sterile technique patient's right knee was aspirated 15 cc of yellow tinged fluid removed. We will send this fluid for a cell count, Gram stain, culture and sensitivity, crystals. 4. If any concern of infection we will plan on the surgery tomorrow. Patient and family understand and agree with the above plan. Plan discussed with: Patient My Orders My Orders Orders - ANGELO DOUGLAS MD Procedure Category Date Status Time Body Fluids, Diff. LAB 08/02/24 Logged Cell Count 15:22 Routine Bacterial PAUL 08/02/24 Logged Culture 15:22 Dietary Evaluation Review Recommendations by RD: Dietary education by RD, Protein Supplementation Comments: 1) Initiate Glucerna @ 8 fl oz bid. Encourage optimal PO intake 2) Initiate vitamin C @ 500 mg bid and zinc sulfate @ 220 mg qd for 7-10 days 3) Refer to outpatient RD/[facility] for weight management 4) Follow-up with pulmonology and rheumatology 5) Continue to monitor I&O, labs, and skin integrity Expected Outcomes/Goals: 1) appetite and labs to improve 2) wound to improve 3) follow-up in 3-5 days ANGELO DOUGLAS MD August 02, 2024 15:41
[2024-08-02 18:33] LABS: Body Fluid Red Blood Cells 1150 CUMM (0-2000); Body Fluid White Blood Cells 15500 CUMM (0-200)
--- NOTE | 2024-08-02 22:38 | DVHPN2 ---
Progress Note - Dictate Medical Necessity Reason Pt with a Central, PICC or Fol: No Subjective Patient continues to have pains in her right knee with soft tissue edema X-ray was remarkable for osteoarthritis with effusion Patient was been referred to Dr. [place] Patient receives pain management through IV Toradol and oxycodone vital signs Vital Sign Date Time Temp Pulse Resp B/P (MAP) Pulse Ox O2 Delivery O2 Flow Rate FiO2 08/02/24 18:58 98 Room Air* 0 21 08/02/24 17:00 98.6 85 98 126/55 (78) 98.6 Total Intake and Output 08/01/24 08/01/24 08/02/24 15:00 23:00 07:00 Intake Total 600 ml Output Total 600 ml Balance 0 ml medications Current Medications Medications Dose Ordered Sig/Kitty Route Start Time Stop Time Status Last Admin Dose Admin Albuterol 2.5 mg Q4HPRN PRN NEB 07/29/24 21:00 08/02/24 15:26 2.5 MG Betamethasone Dipropion Augmented 1 applic DAILY TOP 07/30/24 10:00 08/02/24 10:02 1 APPLIC Clopidogrel Bisulfate 75 mg DAILY PO 07/30/24 10:00 07/30/24 10:34 75 MG Docusate Sodium 100 mg DAILY PRN PO 07/29/24 21:00 08/02/24 21:08 100 MG Duloxetine HCl 30 mg DAILY PO 07/30/24 10:00 08/02/24 09:56 30 MG Empaglifozin 10 mg DAILY PO 07/30/24 10:00 08/02/24 09:55 10 MG Metoprolol Succinate 50 mg DAILY PO 07/30/24 10:00 08/02/24 09:55 50 MG Multivitamins 1 tab DAILY PO 07/30/24 10:00 08/02/24 09:56 1 TAB Oxybutynin Chloride 10 mg DAILY PO 07/30/24 10:00 08/02/24 09:56 10 MG Pantoprazole Sodium 40 mg QAM PO 07/30/24 07:00 08/02/24 05:54 40 MG Valsartan 160 mg DAILY PO 07/30/24 10:00 08/02/24 09:57 160 MG Patient Own Medication 1 tab DAILY PO 07/30/24 10:00 08/02/24 09:57 1 TAB Citalopram Hydrobromide 40 mg DAILY PO 07/30/24 10:00 08/02/24 09:56 40 MG Atorvastatin Calcium 40 mg DAILY PO 07/30/24 10:00 08/02/24 09:56 40 MG Patient Own Medication 4 mg BID PO 07/30/24 10:00 Losartan Potassium 100 mg DAILY PO 07/30/24 10:00 08/02/24 09:57 100 MG Nitroglycerin 0.4 mg Q5MINP PRN SL 07/29/24 21:15 Morphine Sulfate 2 mg Q30M PRN IV 07/29/24 21:15 Hydrochlorothiazide 12.5 mg DAILY PO 07/30/24 10:00 Mupirocin 1 applic BID TOP 07/31/24 10:00 07/31/24 10:05 1 APPLIC Oxycodone HCl 15 mg Q6HPRN PRN PO 07/31/24 00:00 08/02/24 17:30 15 MG Insulin Human Lispro AC SC 07/31/24 07:00 07/31/24 17:58 2 UNITS Insulin Human Lispro HS SC 07/31/24 22:00 Acetaminophen 650 mg Q6HP PRN PO 07/31/24 07:30 08/02/24 17:30 650 MG objective General appearance: Well-developed, well-nourished middle-aged female appears generally weak Awake alert oriented x3 , Appears in stated age group without respiratory distress Head: Normocephalic, non-traumatic Eyes: EOM-full, AMBAR, sclera non-icteric, conjunctive-pink, Eyeballs sunken 0, fundoscopic grade 1 AV changes ENT: ENT-No congestion, NSL bilateral symmetrical, oral mucosa wet Neck: Supple, carotid upstroke +2, trachea R off midline, loss of adipose tissue No goiter/lymph node enlargement JVD-3 cm, C spine- Full ROM Chest: Bilateral symmetrical expansions, No costochondral tenderness Breasts: deferred Lungs: clear breath sounds all over anterior and posterior lung [place] Reduced at L base> R base CVS: PMI-1.5 cm medial to L MCL in fifth ICS , S1-S2 NSR no S3 GI: Abdomen soft, obese, bowel sounds normoactive No focal/rebound tenderness, no organomegaly, no mass or hernia : No CVA tenderness, no bladder mass palpable, genitalia-NE SKIN: Turgor normal, color pale +1, no rash, no icterus, open wound proximal to L knee EXTs: No edema, color pale +1, no rash, no ecchymosis DP +2, capillary refill <2 seconds JOINTS: reduced from osteoarthritis of bilateral hip and knee joints BACK: No apparent lumbosacral spinal muscle tenderness, LYMPH NODES: No cervical, axillary or inguinal lymph nodes Neuro: Awake alert oriented 3, coherent, all cognitives- intact, cranial nerves 2-12 intact Motor- No pronator drift, no focal motor deficit, Sensory- changes of peripheral neuropathy DTR +2, gait steady PSYCH: Affect mildly depressed-denies suicidal ideation laboratory and microbiology Laboratory Tests 07/30/24 07:07 Test 07/30/24 07:07 Range/Units Serum Glucose 122 H 74-106 mg/dL Problem List Suspect septic arthritis of R knee acute asthmatic bronchitis Severe osteoarthritis of R knee with effusion Morbid obesity Assessment/Plan Treatment plans as of today Continue hospital stay at telemetry Continue IV antibiotics Await for L knee arthroscopy followed by debridement as per discretion of Dr. Caden Cbua Consider ID consult-refer to Dr. Ed Charles Dietary Evaluation Review Recommendations by RD: Dietary education by RD, Protein Supplementation Comments: 1) Initiate Glucerna @ 8 fl oz bid. Encourage optimal PO intake 2) Initiate vitamin C @ 500 mg bid and zinc sulfate @ 220 mg qd for 7-10 days 3) Refer to outpatient RD/[facility] for weight management 4) Follow-up with pulmonology and rheumatology 5) Continue to monitor I&O, labs, and skin integrity Expected Outcomes/Goals: 1) appetite and labs to improve 2) wound to improve 3) follow-up in 3-5 days SULY CHARLES MD August 02, 2024 22:38
[2024-08-03] VITALS (15 sets, daily range): BP systolic 109–133; BP diastolic 58–85; PULSE 59–69; RESP 16–20; TEMP 98–99; O2SAT 94–100
--- NOTE | 2024-08-03 07:31 | DVHPN2 ---
Progress Note Date Seen: August 03, 2024 Medical Necessity Reason Pt with a Central, PICC or Fol: No Subjective Patient reports: No new complaints Objective vital signs Vital Sign Date Time Temp Pulse Resp B/P (MAP) Pulse Ox O2 Delivery O2 Flow Rate FiO2 08/03/24 05:00 98.5 64 20 123/61 (81) 96 98.5 08/02/24 20:00 Room Air* 0 21 Total Intake and Output 08/02/24 08/02/24 08/03/24 15:00 23:00 07:00 Intake Total 120 ml 560 ml 500 ml Balance 120 ml 560 ml 500 ml medications Current Medications Medications Dose Ordered Sig/Kitty Route Start Time Stop Time Status Last Admin Dose Admin Albuterol 2.5 mg Q4HPRN PRN NEB 07/29/24 21:00 08/02/24 15:26 2.5 MG Betamethasone Dipropion Augmented 1 applic DAILY TOP 07/30/24 10:00 08/02/24 10:02 1 APPLIC Clopidogrel Bisulfate 75 mg DAILY PO 07/30/24 10:00 07/30/24 10:34 75 MG Docusate Sodium 100 mg DAILY PRN PO 07/29/24 21:00 08/02/24 21:08 100 MG Duloxetine HCl 30 mg DAILY PO 07/30/24 10:00 08/02/24 09:56 30 MG Empaglifozin 10 mg DAILY PO 07/30/24 10:00 08/02/24 09:55 10 MG Metoprolol Succinate 50 mg DAILY PO 07/30/24 10:00 08/02/24 09:55 50 MG Multivitamins 1 tab DAILY PO 07/30/24 10:00 08/02/24 09:56 1 TAB Oxybutynin Chloride 10 mg DAILY PO 07/30/24 10:00 08/02/24 09:56 10 MG Pantoprazole Sodium 40 mg QAM PO 07/30/24 07:00 08/03/24 05:21 40 MG Valsartan 160 mg DAILY PO 07/30/24 10:00 08/02/24 09:57 160 MG Patient Own Medication 1 tab DAILY PO 07/30/24 10:00 08/02/24 09:57 1 TAB Citalopram Hydrobromide 40 mg DAILY PO 07/30/24 10:00 08/02/24 09:56 40 MG Atorvastatin Calcium 40 mg DAILY PO 07/30/24 10:00 08/02/24 09:56 40 MG Patient Own Medication 4 mg BID PO 07/30/24 10:00 Losartan Potassium 100 mg DAILY PO 07/30/24 10:00 08/02/24 09:57 100 MG Nitroglycerin 0.4 mg Q5MINP PRN SL 07/29/24 21:15 Morphine Sulfate 2 mg Q30M PRN IV 07/29/24 21:15 Hydrochlorothiazide 12.5 mg DAILY PO 07/30/24 10:00 Mupirocin 1 applic BID TOP 07/31/24 10:00 07/31/24 10:05 1 APPLIC Oxycodone HCl 15 mg Q6HPRN PRN PO 07/31/24 00:00 08/03/24 00:38 15 MG Insulin Human Lispro AC SC 07/31/24 07:00 07/31/24 17:58 2 UNITS Insulin Human Lispro HS SC 07/31/24 22:00 Acetaminophen 650 mg Q6HP PRN PO 07/31/24 07:30 08/02/24 17:30 650 MG laboratory and microbiology Laboratory Tests 07/30/24 07:07 Test 07/30/24 07:07 Range/Units Serum Glucose 122 H 74-106 mg/dL Microbiology Date/Time Source Procedure Growth Status 07/30/24 05:42 Nose MRSA Screen - Final Complete 07/30/24 05:42 Urine - Catheterized Urine Culture - Final Complete Problem List/Assessment/Plan Problem List/Assessment/Plan Right knee effusion rule out septic knee 1. I had a long thorough discussion with the patient regarding her condition. 2. Knee fluid analysis - WBC at 15,500 which isnt consistent with a septic knee 3. continue to follow culture/sensitivity for knee if any growth Plan discussed with: Patient My Orders My Orders Orders - ANGELO DOUGLAS MD Procedure Category Date Status Time Body Fluid Culture W/ PAUL 08/02/24 In Process GS 16:33 Dietary Evaluation Review Recommendations by RD: Dietary education by RD, Protein Supplementation Comments: 1) Initiate Glucerna @ 8 fl oz bid. Encourage optimal PO intake 2) Initiate vitamin C @ 500 mg bid and zinc sulfate @ 220 mg qd for 7-10 days 3) Refer to outpatient RD/[facility] for weight management 4) Follow-up with pulmonology and rheumatology 5) Continue to monitor I&O, labs, and skin integrity Expected Outcomes/Goals: 1) appetite and labs to improve 2) wound to improve 3) follow-up in 3-5 days ANGELO DOUGLAS . August 03, 2024 07:31
--- NOTE | 2024-08-03 23:55 | DVHPN2 ---
Progress Note - Dictate Date Seen: August 03, 2024 Medical Necessity Reason Pt with a Central, PICC or Fol: No Subjective Patient continues to have pains in her right knee with soft tissue edema X-ray was remarkable for osteoarthritis with effusion Patient was been referred to Dr. [place] Patient receives pain management through IV Toradol and oxycodone vital signs Vital Sign Date Time Temp Pulse Resp B/P (MAP) Pulse Ox O2 Delivery O2 Flow Rate FiO2 08/03/24 21:00 99.0 62 19 109/58 (75) 98 99.0 08/03/24 20:00 Room Air* 0 21 Total Intake and Output 08/02/24 08/02/24 08/03/24 15:00 23:00 07:00 Intake Total 120 ml 560 ml 500 ml Balance 120 ml 560 ml 500 ml medications Current Medications Medications Dose Ordered Sig/Kitty Route Start Time Stop Time Status Last Admin Dose Admin Albuterol 2.5 mg Q4HPRN PRN NEB 07/29/24 21:00 08/03/24 19:55 2.5 MG Betamethasone Dipropion Augmented 1 applic DAILY TOP 07/30/24 10:00 08/03/24 10:03 1 APPLIC Clopidogrel Bisulfate 75 mg DAILY PO 07/30/24 10:00 07/30/24 10:34 75 MG Docusate Sodium 100 mg DAILY PRN PO 07/29/24 21:00 08/02/24 21:08 100 MG Duloxetine HCl 30 mg DAILY PO 07/30/24 10:00 08/03/24 09:48 30 MG Empaglifozin 10 mg DAILY PO 07/30/24 10:00 08/03/24 09:49 10 MG Metoprolol Succinate 50 mg DAILY PO 07/30/24 10:00 08/03/24 09:51 50 MG Multivitamins 1 tab DAILY PO 07/30/24 10:00 08/03/24 09:51 1 TAB Oxybutynin Chloride 10 mg DAILY PO 07/30/24 10:00 08/03/24 10:13 10 MG Pantoprazole Sodium 40 mg QAM PO 07/30/24 07:00 08/03/24 05:21 40 MG Valsartan 160 mg DAILY PO 07/30/24 10:00 08/03/24 09:50 160 MG Patient Own Medication 1 tab DAILY PO 07/30/24 10:00 08/03/24 09:54 1 TAB Citalopram Hydrobromide 40 mg DAILY PO 07/30/24 10:00 08/03/24 09:50 40 MG Atorvastatin Calcium 40 mg DAILY PO 07/30/24 10:00 08/03/24 09:50 40 MG Patient Own Medication 4 mg BID PO 07/30/24 10:00 Losartan Potassium 100 mg DAILY PO 07/30/24 10:00 08/03/24 09:51 100 MG Nitroglycerin 0.4 mg Q5MINP PRN SL 07/29/24 21:15 Morphine Sulfate 2 mg Q30M PRN IV 07/29/24 21:15 Hydrochlorothiazide 12.5 mg DAILY PO 07/30/24 10:00 Mupirocin 1 applic BID TOP 07/31/24 10:00 08/03/24 22:19 1 APPLIC Oxycodone HCl 15 mg Q6HPRN PRN PO 07/31/24 00:00 08/03/24 20:25 15 MG Insulin Human Lispro AC SC 07/31/24 07:00 08/03/24 18:01 5 UNITS Insulin Human Lispro HS SC 07/31/24 22:00 Acetaminophen 650 mg Q6HP PRN PO 07/31/24 07:30 08/03/24 17:59 650 MG objective General appearance: Well-developed, well-nourished middle-aged female appears generally weak Awake alert oriented x3 , Appears in stated age group without respiratory distress Head: Normocephalic, non-traumatic Eyes: EOM-full, AMBAR, sclera non-icteric, conjunctive-pink, Eyeballs sunken 0, fundoscopic grade 1 AV changes ENT: ENT-No congestion, NSL bilateral symmetrical, oral mucosa wet Neck: Supple, carotid upstroke +2, trachea R off midline, loss of adipose tissue No goiter/lymph node enlargement JVD-3 cm, C spine- Full ROM Chest: Bilateral symmetrical expansions, No costochondral tenderness Breasts: deferred Lungs: clear breath sounds all over anterior and posterior lung [place] Reduced at L base> R base CVS: PMI-1.5 cm medial to L MCL in fifth ICS , S1-S2 NSR no S3 GI: Abdomen soft, obese, bowel sounds normoactive No focal/rebound tenderness, no organomegaly, no mass or hernia : No CVA tenderness, no bladder mass palpable, genitalia-NE SKIN: Turgor normal, color pale +1, no rash, no icterus, open wound proximal to L knee EXTs: No edema, color pale +1, no rash, no ecchymosis DP +2, capillary refill <2 seconds JOINTS: reduced from osteoarthritis of bilateral hip and knee joints BACK: No apparent lumbosacral spinal muscle tenderness, LYMPH NODES: No cervical, axillary or inguinal lymph nodes Neuro: Awake alert oriented 3, coherent, all cognitives- intact, cranial nerves 2-12 intact Motor- No pronator drift, no focal motor deficit, Sensory- changes of peripheral neuropathy DTR +2, gait steady PSYCH: Affect mildly depressed-denies suicidal ideation laboratory and microbiology Laboratory Tests 07/30/24 07:07 Test 07/30/24 07:07 Range/Units Serum Glucose 122 H 74-106 mg/dL Problem List Suspect septic arthritis of R knee acute asthmatic bronchitis Severe osteoarthritis of R knee with effusion Morbid obesity Assessment/Plan Treatment plans as of today Continue hospital stay at telemetry Continue IV antibiotics Await for L knee arthroscopy followed by debridement as per discretion of Dr. Caden [place] Consider ID consult-refer to Dr. Ed Charles Dietary Evaluation Review Recommendations by RD: Dietary education by RD, Protein Supplementation Comments: 1) Initiate Glucerna @ 8 fl oz bid. Encourage optimal PO intake 2) Initiate vitamin C @ 500 mg bid and zinc sulfate @ 220 mg qd for 7-10 days 3) Refer to outpatient RD/[facility] for weight management 4) Follow-up with pulmonology and rheumatology 5) Continue to monitor I&O, labs, and skin integrity Expected Outcomes/Goals: 1) appetite and labs to improve 2) wound to improve 3) follow-up in 3-5 days SULY CHARLES MD August 03, 2024 23:55
[2024-08-04] VITALS (16 sets, daily range): BP systolic 121–149; BP diastolic 56–97; PULSE 60–75; RESP 16–22; TEMP 97.9–98.6; O2SAT 92–100
--- NOTE | 2024-08-04 14:56 | DVHINCON2 ---
Date of service: August 03, 2024 Family History: Cardiovascular disease G8 FATHER, Onset: Diabetes mellitus FHx: cancer G8 MOTHER, Onset: Hypertension G8 MOTHER, Onset: G8 FATHER, Onset: Allergies: Coded Allergies: Benzalkonium Chloride (Verified Allergy, Unknown, 07/08/18) Dupilumab (Verified Allergy, Unknown, 05/30/24) Lisinopril (Verified Allergy, Unknown, 07/08/18) Sorbitan (Verified Allergy, Unknown, 05/30/24) Home Meds Active Scripts Valsartan (Valsartan) 80 Mg Tab, 160 MG PO DAILY for 90 Days, #180 TAB Prov:SULY CHARLES MD 07/14/24 Amoxicillin & Pot Clavulanate (AUGMENTIN TABLET) 875 Mg Tb, 875 MG PO BID for 7 Days, #14 TAB Prov:SULY CHARLES MD 07/14/24 Betamethasone Dipropionate (Betamethasone Dipropionat) 0.05 % Cre, 1 APPLIC TOP DAILY for 30 Days, #60 GM Prov:SULY CHARLES MD 07/13/24 Albuterol Sulfate (Ventolin) 2.5 Mg/0.5 Ml Nb, 2.5 MG NEB Q4HPRN PRN for 50 Days, #100 ML 1 Refill Prov:SULY CHARLES MD 01/20/22 Reported Medications Multiple Vitamin (Multivitamins) Tab, 1 TAB PO DAILY, #90 TAB 3 Refills 05/29/24 Celecoxib (Celebrex) 200 Mg Cap, 200 MG PO HS, CAP 05/29/24 Betamethasone Dipropionate (Betamethasone Dipropionat) 0.05 % Oin, 1 APPLIC TD BID 05/29/24 Duloxetine HCl (Duloxetine HCl) 30 Mg Cap, 30 MG PO DAILY 05/29/24 Tizanidine Hydrochloride (Tizanidine Hcl) 4 Mg Tab, 4 MG PO BID 05/29/24 Oxybutynin Chloride (Oxybutynin Chloride) 5 Mg Tab, 10 MG PO DAILY 05/29/24 Oxycodone HCl (Oxycodone Hydrochloride) 20 Mg Tab, 20 MG PO Q8HPRN PRN for PAIN SCALE 7 THRU 10 05/29/24 Valsartan-Hydrochlorothiazide (Diovan Hct) 160 /12.5 Tab, 1 TAB PO DAILY 05/15/23 Aripiprazole (Aripiprazole) 10 Mg Tab, 1 TAB PO DAILY 05/15/23 Metformin Hydrochloride (Metformin Hcl Er) 750 Mg Tab, 1 TAB PO DAILY, #90 TAB 3 Refills 05/12/23 Rosuvastatin Calcium (Crestor) 20 Mg Tab, 1 TAB PO DAILY for LOWER BAD CHOLESTEROL, #30 TAB 5 Refills 04/03/22 Pantoprazole Sodium Sesquihydr (Pantoprazole Sodium) 40 Mg Tab, 40 MG PO QAM for GERD, TAB PRIOR TO BREAKFAST PER PT SHOULD STILL BE ON THIS MEDICATION EVEN THOUGH NO P/UP HISTORY IN EXTERNAL MED 11/21/21 Empagliflozin (Jardiance) 10 Mg Tab, 10 MG PO DAILY for DIABETES, TAB 11/21/21 Escitalopram Oxalate (ESCITALOPRAM OXALATE) 20 Mg Tab, 1 TAB PO DAILY for DEPRESSION, #30 TAB 5 Refills 11/21/21 Metoprolol Succinate (Metoprolol Succinate Er) 50 Mg Tab, 50 MG PO DAILY for BLOOD PRESSURE NEW DISCHARGE MED IS METOPROLOL SUCC ER 25 MG BID, BUT PATIENT HAS NOT STARTED TAKING YET AND WOULD LIKE TO BE KEPT ON 50 MG DAILY 07/12/20 Mupirocin Calcium (Topical) (MUPIROCIN) 2 % Cre, 1 APPLIC TOP BID for Skin infection PER PATIENT'S HOME MED LIST: APPLY TOPICALLY TO OPEN WOUNDS BID PT USES 2 GRAMS BID 01/18/20 Docusate Sodium (DOCQLACE) 100 Mg Cap, 100 MG PO DAILY PRN for FOR CONSTIPATION, CAP 06/04/18 Albuterol Sulfate (VENTOLIN MDI) 90 Mcg Ih, 2 PUFF IN Q6HPRN PRN for SHORTNESS OF BREATH EXTERNAL MED HX SAYS Q4HR. PATIENT USES Q6HR PRN 06/04/18 Clopidogrel Bisulfate (CLOPIDOGREL) 75 Mg Tab, 75 MG PO DAILY 06/04/18 Vital Signs Vital Signs Date Time Temp Pulse Resp B/P (MAP) Pulse Ox O2 Delivery O2 Flow Rate FiO2 08/04/24 10:43 149/68 08/04/24 10:41 61 08/04/24 10:00 16 100 08/04/24 09:54 Room Air* 0 21 08/04/24 09:00 98.3 98.3 Labs/Diagnostic Data Labs Test 08/04/24 13:10 08/02/24 15:20 08/01/24 13:35 07/30/24 07:07 Range/Units POC Glucose 153 H 70-106 mg/dl Body Fluid Source Knee fluid Body Fluid WBC (Manual) 51255 H 0-200 CUMM Body Fluid RBC (Manual) 1150 0-2000 CUMM Body Fluid Mononuclear Cells 5 % Body Fluid Polymorphonuclear Cells 95 H 0-25 % Bile Fluid Crystals Negative Erythrocyte Sedimentation Rate 28 H 0-20 mm/hr C-Reactive Protein High Sensitivity 3.42 H <1.0 mg/dL White Blood Count 10.1 4.4-10.8 10^3/uL Red Blood Count 4.39 4.0-5.20 10^6/uL Hemoglobin 10.9 L 12.2-16.2 g/dL Hematocrit 34.2 L 36.0-46.0 % Mean Corpuscular Volume 77.8 L 80.0-100.0 fL Mean Corpuscular Hemoglobin 24.8 L 28.0-32.0 pg Mean Corpuscular Hemoglobin Concent 31.9 L 32.0-36.0 g/dL Red Cell Distribution Width 15.3 H 11.8-14.3 % Platelet Count 289 140-450 10^3/uL Mean Platelet Volume 7.9 6.9-10.8 fL Neutrophils (%) (Auto) 56.2 37.0-80.0 % Lymphocytes (%) (Auto) 20.7 10.0-50.0 % Monocytes (%) (Auto) 9.2 0.0-12.0 % Eosinophils (%) (Auto) 13.3 H 0.0-7.0 % Basophils (%) (Auto) 0.6 0.0-2.0 % Neutrophils # (Auto) 5.7 1.6-8.6 10 ^3/uL Lymphocytes # (Auto) 2.1 0.4-5.4 10 ^3/uL Monocytes # (Auto) 0.9 0-1.3 10 ^3/uL Eosinophils # (Auto) 1.3 H 0-0.8 10 ^3/uL Basophils # (Auto) 0.1 0-0.2 10 ^3/uL Nucleated Red Blood Cells 0.0 % Sodium Level 140 136-145 mmol/L Potassium Level 3.5 3.5-5.1 mmol/L Chloride Level 108 H 98-107 mmol/L Carbon Dioxide Level 24 20-31 mmol/L Anion Gap 8 5-15 Blood Urea Nitrogen 12 9-23 mg/dL Creatinine 0.61 0.550-1.02 mg/dL Glomerular Filtration Rate Calc 99 >90 mL/min BUN/Creatinine Ratio 19.7 10.0-20.0 Serum Glucose 122 H 74-106 mg/dL Calcium Level 9.2 8.7-10.4 mg/dL Total Bilirubin 0.3 0.2-1.0 mg/dL Aspartate Amino Transferase (AST) 12 L 13-40 U/L Alanine Aminotransferase (ALT) 10 7-40 U/L Alkaline Phosphatase 100 46-116 U/L Total Protein 6.8 5.7-8.2 g/dL Albumin 3.7 3.2-4.8 g/dL Triglycerides Level 109 < 150 mg/dL Cholesterol Level 103 < 200 mg/dL LDL Cholesterol 56 < 100 mg/dL HDL Cholesterol 34 L 40-59 mg/dL Test 07/30/24 05:42 07/29/24 21:32 Range/Units Urine Color Light-yellow Yellow Urine Clarity Turbid H Clear Urine pH 6.5 5.0-9.0 Urine Specific [place] 1.017 1.001-1.035 Urine Protein 1+ H Negative Urine Ketones Negative Negative Urine Blood Trace H Negative /uL Urine Nitrite Negative Negative Urine Bilirubin Negative Negative Urine Urobilinogen Normal Negative mg/dL Urine Leukocyte Esterase 3+ Negative /uL Urine RBC 26 0 - 4 /hpf Urine Microscopic WBC 265 H 0-5 /HPF Urine Squamous Epithelial Cells Few <5 /hpf Urine Bacteria Few H None Seen /hpf Urine Mucus Few None Seen Urine Glucose 4+ H Normal mg/dL D-Dimer, Quantitative 1.31 H 0.0-0.49 mg/L FEU Phosphorus Level 3.0 2.4-5.1 mg/dL Magnesium Level 1.6 1.6-2.6 mg/dL Microbiology Date/Time Source Procedure Growth Status 08/02/24 15:20 Knee Fluid Right Gram Stain - Final Resulted 08/02/24 15:20 Knee Fluid Right Body Fluid Culture - Preliminary Resulted 07/30/24 05:42 Nose MRSA Screen - Final Complete 07/30/24 05:42 Urine - Catheterized Urine Culture - Final Complete Problems(with codes): (1) Osteoarthritis of right knee (2) Eczema (3) Right knee pain Plan/Recommendation ASSESSMENT AND PLAN: ID Problem List: - Hypertension - Diabetes - Hypercholesterolemia - Obesity - Fibromyalgia - Coronary Artery Disease (CAD) - COPD - UTI/Pyelonephritis - Potential CHF exacerbation - Potential pneumonia Assessment This is a 63-year-old female with a past medical history significant for hypertension, diabetes, hypercholesterolemia, obesity, fibromyalgia, coronary artery disease (post-PCTA in 2007), and COPD. Presenting symptoms include diffuse body weakness, dysuria, and suprapubic pain. Admitted for concern for UTI, pyelonephritis, exacerbation of fibromyalgia, and COPD. The patient endorses worsening wheezing but no significant sputum production, no fevers or chills noted. The symptoms have been ongoing for the last three to four days. treated last admission w/ effusion drainage and antibiotics sp knee aspiration: fluid analysis not cw infected knee joint Plan: - Infection: Start ceftriaxone until cultures return - Cardiopulmonary: Monitor for CHF and COPD exacerbation, recommend renal ultrasound, and check for COVID-19 and influenza. - Pain/Fibromyalgia: Continue home medications for pain management, monitor respiratory status closely. - Referral: Follow-up with urine culture results. - Isolation Precautions: Standard precautions. - Patient Education: Discuss diagnosis and treatment plan with the patient and address any concerns. Assessment and plan were discussed with the patient as written above. Plan is subject to change pending incorporation of new incoming information/diagnostics. Updates may be added as addendum at the bottom (OR TOP) of this note. Thank you for consulting. ID will continue to follow. Please contact Infectious Disease for any further questions or concerns. Humaira Charles M.D. [facility] --- History: The patient's chart and medications were reviewed in detail, and the patient was seen and examined. History obtained from: patient. Ratna Fulton is a 63-year-old female with a past medical history significant for hypertension, diabetes, hypercholesterolemia, obesity, fibromyalgia, coronary artery disease (post-PCTA in 2007), and COPD. The patient presents with diffuse body weakness, dysuria, and suprapubic pain. Review of Systems: A complete 10-system review of systems was completed and negative except as noted in the HPI or here. ROS: - CONSTITUTIONAL: Denies weight loss, fever, and chills. - HEENT: Denies changes in vision and hearing. - RESPIRATORY: Endorses worsening wheezing, denies cough. - CV: Denies palpitations and chest pain. - GI: Denies abdominal pain, nausea, vomiting, and diarrhea. - : Dysuria, suprapubic pain. - MSK: Denies myalgia and joint pain. - SKIN: Denies rash and pruritus. - NEUROLOGICAL: Denies headache and syncope. - PSYCHIATRIC: Denies recent changes in mood, denies anxiety and depression. Past Medical History: - Hypertension - Diabetes - Hypercholesterolemia - Obesity - Fibromyalgia - CAD (post-PCTA 2007) - COPD Past Surgical History: - Left total hip arthroplasty - PCTA in 2007 Home Medications: - Loratadine - Albuterol - Aripiprazole - Pantoprazole - Oxycodone/acetaminophen - Gabapentin - Cordelia primer - Rosuvastatin - Metoprolol - Metformin - Docusate - Albuterol - Plavix Allergies: - Lisinopril - Benzachromium chloride. Family History: - Cardiovascular disease, diabetes in the father. - Cancer and hypertension in the mother. Social History: - Marital status: - Smoking status: Never - Alcohol use: Never - Drug use: Never - Sexual activity: Not Currently Objective: Vital Signs on Arrival: - Temp: 36.5C (97.7F) - BP: 163/98 - Pulse: 70 - Resp: 20 - SpO2: 98% Physical Exam: - General: NAD, patient is in bed stating significant pain with movement. - Neck: Supple. No masses. - HEENT: PERRL. Normal lids and conjunctiva. Moist mucous membranes. Oropharynx without lesions, exudates, or excessive erythema. Normal appearance of the external aspects of the nose and ears. - Heart: Regular rhythm, normal rate. No murmur. No lower extremity edema. - Lungs: Normal respiratory effort. Clear to auscultation bilaterally with mild wheezing and diminished breath sounds. - Abdomen: Soft. Non-tender. Non-distended. No masses or abdominal hernia. - Msk: No digital cyanosis. Normal strength and tone in all 4 limbs. No tender joints. - Skin: Warm and dry, no rashes. - Neuro: Alert. No facial droop or slurred speech. Extra-ocular movements intact . Sensation intact to soft touch in all 4 limbs. - Psych: Appropriate mood. Full affect. Oriented to person, place, time, and si tuation. - Lines: Peripheral IV line in the left anterior upper arm, 20 gauge. Diagnostic Studies: Available diagnostic studies were reviewed personally. Significant relevant results and findings are outlined below or addressed in the Assessment and Plan above. Pertinent Imaging: Chest X-ray: - No acute cardiac process. - Cardiomegaly with mild CHF. - Potential pneumonia. Plan discussed with: Patient Plan discussed with: Patient HUMAIRA CHARLES MD August 04, 2024 14:56
--- NOTE | 2024-08-04 22:24 | DVHPN2 ---
Consult Progress Note Date Seen: August 05, 2024 Subjective Patient reports: Other (continues to have severe knee pain after spiration her right knee is nonswollen but is very tender and there is a exemitus rash diffusley across her body that encompassed the knee itself ) Objective vital signs Vital Sign Date Time Temp Pulse Resp B/P (MAP) Pulse Ox O2 Delivery O2 Flow Rate FiO2 08/04/24 21:28 71 18 98 21 08/04/24 20:21 Room Air* 0 08/04/24 17:00 98.2 125/56 (79) 98.2 Total Intake and Output 08/03/24 08/03/24 08/04/24 15:00 23:00 07:00 Intake Total 250 ml 700 ml Balance 250 ml 700 ml medications Current Medications Medications Dose Ordered Sig/Kitty Route Start Time Stop Time Status Last Admin Dose Admin Albuterol 2.5 mg Q4HPRN PRN NEB 07/29/24 21:00 08/04/24 20:17 2.5 MG Betamethasone Dipropion Augmented 1 applic DAILY TOP 07/30/24 10:00 08/04/24 10:45 1 APPLIC Clopidogrel Bisulfate 75 mg DAILY PO 07/30/24 10:00 07/30/24 10:34 75 MG Docusate Sodium 100 mg DAILY PRN PO 07/29/24 21:00 08/04/24 13:18 100 MG Duloxetine HCl 30 mg DAILY PO 07/30/24 10:00 08/04/24 10:40 30 MG Empaglifozin 10 mg DAILY PO 07/30/24 10:00 08/04/24 10:43 10 MG Metoprolol Succinate 50 mg DAILY PO 07/30/24 10:00 08/04/24 10:41 50 MG Multivitamins 1 tab DAILY PO 07/30/24 10:00 08/04/24 10:41 1 TAB Oxybutynin Chloride 10 mg DAILY PO 07/30/24 10:00 08/04/24 10:44 10 MG Pantoprazole Sodium 40 mg QAM PO 07/30/24 07:00 08/04/24 06:05 40 MG Valsartan 160 mg DAILY PO 07/30/24 10:00 08/04/24 10:42 160 MG Patient Own Medication 1 tab DAILY PO 07/30/24 10:00 08/04/24 10:44 1 TAB Citalopram Hydrobromide 40 mg DAILY PO 07/30/24 10:00 08/04/24 10:43 40 MG Atorvastatin Calcium 40 mg DAILY PO 07/30/24 10:00 08/04/24 10:43 40 MG Patient Own Medication 4 mg BID PO 07/30/24 10:00 Losartan Potassium 100 mg DAILY PO 07/30/24 10:00 08/04/24 10:43 100 MG Nitroglycerin 0.4 mg Q5MINP PRN SL 07/29/24 21:15 Morphine Sulfate 2 mg Q30M PRN IV 07/29/24 21:15 Hydrochlorothiazide 12.5 mg DAILY PO 07/30/24 10:00 Mupirocin 1 applic BID TOP 07/31/24 10:00 08/04/24 21:43 1 APPLIC Oxycodone HCl 15 mg Q6HPRN PRN PO 07/31/24 00:00 08/04/24 20:09 15 MG Insulin Human Lispro AC SC 07/31/24 07:00 08/04/24 18:22 2 UNITS Insulin Human Lispro HS SC 07/31/24 22:00 Acetaminophen 650 mg Q6HP PRN PO 07/31/24 07:30 08/03/24 17:59 650 MG Physical Exam: - General: NAD, patient is in bed stating significant pain with movement. - Neck: Supple. No masses. - HEENT: PERRL. Normal lids and conjunctiva. Moist mucous membranes. Oropharynx without lesions, exudates, or excessive erythema. Normal appearance of the external aspects of the nose and ears. - Heart: Regular rhythm, normal rate. No murmur. No lower extremity edema. - Lungs: Normal respiratory effort. Clear to auscultation bilaterally with mild wheezing and diminished breath sounds. - Abdomen: Soft. Non-tender. Non-distended. No masses or abdominal hernia. - Msk: No digital cyanosis. Normal strength and tone in all 4 limbs. No tender joints. - Skin: Warm and dry, no rashes. - Neuro: Alert. No facial droop or slurred speech. Extra-ocular movements intact. Sensation intact to soft touch in all 4 limbs. - Psych: Appropriate mood. Full affect. Oriented to person, place, time, and situation. - Lines: Peripheral IV line in the left anterior upper arm, 20 gauge. laboratory and microbiology Laboratory Tests 07/30/24 07:07 Test 07/30/24 07:07 Range/Units Serum Glucose 122 H 74-106 mg/dL Problem List/Assessment/Plan Problems(with codes): (1) Injury of left rotator cuff (2) Osteoarthritis of right knee (3) Right knee pain (4) Eczema (5) Acute exacerbation of chronic obstructive pulmonary disease (COPD) (6) NSTEMI (non-ST elevated myocardial infarction) (7) Acute chest pain Problem List/Assessment/Plan ASSESSMENT AND PLAN: ID Problem List: - Hypertension - Diabetes - Hypercholesterolemia - Obesity - Fibromyalgia - Coronary Artery Disease (CAD) - COPD - UTI/Pyelonephritis - Potential CHF exacerbation - Potential pneumonia Assessment This is a 63-year-old female with a past medical history significant for hypertension, diabetes, hypercholesterolemia, obesity, fibromyalgia, coronary artery disease (post-PCTA in 2007), and COPD. Presenting symptoms include diffuse body weakness, dysuria, and suprapubic pain. Admitted for concern for UTI, pyelonephritis, exacerbation of fibromyalgia, and COPD. The patient endorses worsening wheezing but no significant sputum production, no fevers or chills noted. The symptoms have been ongoing for the last three to four days. treated last admission w/ effusion drainage and antibiotics sp knee aspiration: fluid analysis not cw infected knee joint 08/05: cultures are negative and whitecount is 11.1 Plan: - Continue ceftriaxone - no need for antibiotics upon discharge - Cardiopulmonary: Monitor for CHF and COPD exacerbation, recommend renal ultrasound, and check for COVID-19 and influenza. - Pain/Fibromyalgia: Continue home medications for pain management, monitor respiratory status closely. - Referral: Follow-up with urine culture results. - Isolation Precautions: Standard precautions. - Patient Education: Discuss diagnosis and treatment plan with the patient and address any concerns. Plan discussed with: Other Dietary Evaluation Review Recommendations by RD: Dietary education by RD, Protein Supplementation Comments: 1) Initiate Glucerna @ 8 fl oz bid. Encourage optimal PO intake 2) Initiate vitamin C @ 500 mg bid and zinc sulfate @ 220 mg qd for 7-10 days 3) Refer to outpatient RD/CDCES for weight management 4) Follow-up with pulmonology and rheumatology 5) Continue to monitor I&O, labs, and skin integrity Expected Outcomes/Goals: 1) appetite and labs to improve 2) wound to improve 3) follow-up in 3-5 days HUMAIRA CARDOZO MD August 04, 2024 22:24
[2024-08-05] VITALS (13 sets, daily range): BP systolic 109–133; BP diastolic 50–72; PULSE 60–75; RESP 17–20; TEMP 98.1–99.2; O2SAT 95–100
--- NOTE | 2024-08-05 00:58 | DVHPN2 ---
Progress Note - Dictate Date Seen: August 04, 2024 Medical Necessity Reason Pt with a Central, PICC or Fol: No Subjective Patient continues to have pains in her right knee with soft tissue edema X-ray was remarkable for osteoarthritis with effusion Patient was been referred to Dr. [place] Patient receives pain management through IV Toradol and oxycodone vital signs Vital Sign Date Time Temp Pulse Resp B/P (MAP) Pulse Ox O2 Delivery O2 Flow Rate FiO2 08/04/24 21:28 71 18 98 21 08/04/24 21:00 98.2 121/66 (84) 98.2 08/04/24 20:21 Room Air* 0 Total Intake and Output 08/04/24 08/04/24 08/05/24 15:00 23:00 07:00 Intake Total 890 ml Balance 890 ml medications Current Medications Medications Dose Ordered Sig/Kitty Route Start Time Stop Time Status Last Admin Dose Admin Albuterol 2.5 mg Q4HPRN PRN NEB 07/29/24 21:00 08/04/24 20:17 2.5 MG Betamethasone Dipropion Augmented 1 applic DAILY TOP 07/30/24 10:00 08/04/24 10:45 1 APPLIC Clopidogrel Bisulfate 75 mg DAILY PO 07/30/24 10:00 07/30/24 10:34 75 MG Docusate Sodium 100 mg DAILY PRN PO 07/29/24 21:00 08/04/24 13:18 100 MG Duloxetine HCl 30 mg DAILY PO 07/30/24 10:00 08/04/24 10:40 30 MG Empaglifozin 10 mg DAILY PO 07/30/24 10:00 08/04/24 10:43 10 MG Metoprolol Succinate 50 mg DAILY PO 07/30/24 10:00 08/04/24 10:41 50 MG Multivitamins 1 tab DAILY PO 07/30/24 10:00 08/04/24 10:41 1 TAB Oxybutynin Chloride 10 mg DAILY PO 07/30/24 10:00 08/04/24 10:44 10 MG Pantoprazole Sodium 40 mg QAM PO 07/30/24 07:00 08/04/24 06:05 40 MG Valsartan 160 mg DAILY PO 07/30/24 10:00 08/04/24 10:42 160 MG Patient Own Medication 1 tab DAILY PO 07/30/24 10:00 08/04/24 10:44 1 TAB Citalopram Hydrobromide 40 mg DAILY PO 07/30/24 10:00 08/04/24 10:43 40 MG Atorvastatin Calcium 40 mg DAILY PO 07/30/24 10:00 08/04/24 10:43 40 MG Patient Own Medication 4 mg BID PO 07/30/24 10:00 Losartan Potassium 100 mg DAILY PO 07/30/24 10:00 08/04/24 10:43 100 MG Nitroglycerin 0.4 mg Q5MINP PRN SL 07/29/24 21:15 Morphine Sulfate 2 mg Q30M PRN IV 07/29/24 21:15 Hydrochlorothiazide 12.5 mg DAILY PO 07/30/24 10:00 Mupirocin 1 applic BID TOP 07/31/24 10:00 08/04/24 21:43 1 APPLIC Oxycodone HCl 15 mg Q6HPRN PRN PO 07/31/24 00:00 08/04/24 20:09 15 MG Insulin Human Lispro AC SC 07/31/24 07:00 08/04/24 18:22 2 UNITS Insulin Human Lispro HS SC 07/31/24 22:00 Acetaminophen 650 mg Q6HP PRN PO 07/31/24 07:30 08/03/24 17:59 650 MG Hydroxyzine Pamoate 25 mg Q6HP PRN PO 08/05/24 01:00 UNV objective General appearance: Well-developed, well-nourished middle-aged female appears generally weak Awake alert oriented x3 , Appears in stated age group without respiratory distress Head: Normocephalic, non-traumatic Eyes: EOM-full, AMBAR, sclera non-icteric, conjunctive-pink, Eyeballs sunken 0, fundoscopic grade 1 AV changes ENT: ENT-No congestion, NSL bilateral symmetrical, oral mucosa wet Neck: Supple, carotid upstroke +2, trachea R off midline, loss of adipose tissue No goiter/lymph node enlargement JVD-3 cm, C spine- Full ROM Chest: Bilateral symmetrical expansions, No costochondral tenderness Breasts: deferred Lungs: clear breath sounds all over anterior and posterior lung [place] Reduced at L base> R base CVS: PMI-1.5 cm medial to L MCL in fifth ICS , S1-S2 NSR no S3 GI: Abdomen soft, obese, bowel sounds normoactive No focal/rebound tenderness, no organomegaly, no mass or hernia : No CVA tenderness, no bladder mass palpable, genitalia-NE SKIN: Turgor normal, color pale +1, no rash, no icterus, open wound proximal to L knee EXTs: No edema, color pale +1, no rash, no ecchymosis DP +2, capillary refill <2 seconds JOINTS: reduced from osteoarthritis of bilateral hip and knee joints BACK: No apparent lumbosacral spinal muscle tenderness, LYMPH NODES: No cervical, axillary or inguinal lymph nodes Neuro: Awake alert oriented 3, coherent, all cognitives- intact, cranial nerves 2-12 intact Motor- No pronator drift, no focal motor deficit, Sensory- changes of peripheral neuropathy DTR +2, gait steady PSYCH: Affect mildly depressed-denies suicidal ideation laboratory and microbiology Laboratory Tests 07/30/24 07:07 Test 07/30/24 07:07 Range/Units Serum Glucose 122 H 74-106 mg/dL Problem List Suspect septic arthritis of R knee acute asthmatic bronchitis Severe osteoarthritis of R knee with effusion Morbid obesity Assessment/Plan Treatment plans as of today Continue hospital stay at telemetry Continue IV antibiotics Await for L knee arthroscopy followed by debridement as per discretion of Dr. Caden [place] Consider ID consult-refer to Dr. Ed Charles Dietary Evaluation Review Recommendations by RD: Dietary education by RD, Protein Supplementation Comments: 1) Initiate Glucerna @ 8 fl oz bid. Encourage optimal PO intake 2) Initiate vitamin C @ 500 mg bid and zinc sulfate @ 220 mg qd for 7-10 days 3) Refer to outpatient RD/CD[facility] for weight management 4) Follow-up with pulmonology and rheumatology 5) Continue to monitor I&O, labs, and skin integrity Expected Outcomes/Goals: 1) appetite and labs to improve 2) wound to improve 3) follow-up in 3-5 days SULY CHARLES MD August 05, 2024 00:58
[2024-08-05] MEDS: hydrOXYzine 25 MG TAB or CAP PO ONE (01:20)
[2024-08-05] MEDS: hydrOXYzine 25 MG TAB or CAP PO PRN (21:50)
--- NOTE | 2024-08-05 22:50 | DVHPN2 ---
Progress Note - Dictate Date Seen: August 05, 2024 Medical Necessity Reason Pt with a Central, PICC or Fol: No Subjective The patient is awaiting to receive orthopedic surgery Her pains in right knee are improving Patient is able to transfer out of the bed to [facility] only Tried to contact Dr. Bone about surgical treatment plans Patient receives pain management through IV Toradol and oxycodone vital signs Vital Sign Date Time Temp Pulse Resp B/P (MAP) Pulse Ox O2 Delivery O2 Flow Rate FiO2 08/05/24 20:00 70 19 98 Room Air* 0 21 08/05/24 17:00 99.0 109/59 (76) 99.0 Total Intake and Output 08/04/24 08/04/24 08/05/24 15:00 23:00 07:00 Intake Total 890 ml 750 ml Balance 890 ml 750 ml medications Current Medications Medications Dose Ordered Sig/Kitty Route Start Time Stop Time Status Last Admin Dose Admin Albuterol 2.5 mg Q4HPRN PRN NEB 07/29/24 21:00 08/05/24 15:02 2.5 MG Betamethasone Dipropion Augmented 1 applic DAILY TOP 07/30/24 10:00 08/05/24 08:47 1 APPLIC Clopidogrel Bisulfate 75 mg DAILY PO 07/30/24 10:00 07/30/24 10:34 75 MG Docusate Sodium 100 mg DAILY PRN PO 07/29/24 21:00 08/04/24 13:18 100 MG Duloxetine HCl 30 mg DAILY PO 07/30/24 10:00 08/05/24 08:45 30 MG Empaglifozin 10 mg DAILY PO 07/30/24 10:00 08/05/24 08:45 10 MG Metoprolol Succinate 50 mg DAILY PO 07/30/24 10:00 08/05/24 09:20 50 MG Multivitamins 1 tab DAILY PO 07/30/24 10:00 08/05/24 08:45 1 TAB Oxybutynin Chloride 10 mg DAILY PO 07/30/24 10:00 08/05/24 08:45 10 MG Pantoprazole Sodium 40 mg QAM PO 07/30/24 07:00 08/05/24 05:42 40 MG Valsartan 160 mg DAILY PO 07/30/24 10:00 08/05/24 09:19 160 MG Patient Own Medication 1 tab DAILY PO 07/30/24 10:00 08/04/24 10:44 1 TAB Citalopram Hydrobromide 40 mg DAILY PO 07/30/24 10:00 08/05/24 08:44 40 MG Atorvastatin Calcium 40 mg DAILY PO 07/30/24 10:00 08/05/24 08:45 40 MG Patient Own Medication 4 mg BID PO 07/30/24 10:00 Losartan Potassium 100 mg DAILY PO 07/30/24 10:00 08/05/24 09:20 100 MG Nitroglycerin 0.4 mg Q5MINP PRN SL 07/29/24 21:15 Morphine Sulfate 2 mg Q30M PRN IV 07/29/24 21:15 Hydrochlorothiazide 12.5 mg DAILY PO 07/30/24 10:00 Mupirocin 1 applic BID TOP 07/31/24 10:00 08/05/24 08:47 1 APPLIC Oxycodone HCl 15 mg Q6HPRN PRN PO 07/31/24 00:00 08/05/24 21:49 15 MG Insulin Human Lispro AC SC 07/31/24 07:00 08/05/24 05:52 2 UNITS Insulin Human Lispro HS SC 07/31/24 22:00 Acetaminophen 650 mg Q6HP PRN PO 07/31/24 07:30 08/05/24 12:20 650 MG Hydroxyzine Pamoate 25 mg Q6HP PRN PO 08/05/24 01:00 08/05/24 21:50 25 MG objective General appearance: Well-developed, well-nourished middle-aged female appears generally weak Awake alert oriented x3 , Appears in stated age group without respiratory distress Head: Normocephalic, non-traumatic Eyes: EOM-full, AMBAR, sclera non-icteric, conjunctive-pink, Eyeballs sunken 0, fundoscopic grade 1 AV changes ENT: ENT-No congestion, NSL bilateral symmetrical, oral mucosa wet Neck: Supple, carotid upstroke +2, trachea R off midline, loss of adipose tissue No goiter/lymph node enlargement JVD-3 cm, C spine- Full ROM Chest: Bilateral symmetrical expansions, No costochondral tenderness Breasts: deferred Lungs: clear breath sounds all over anterior and posterior lung [place] Reduced at L base> R base CVS: PMI-1.5 cm medial to L MCL in fifth ICS , S1-S2 NSR no S3 GI: Abdomen soft, obese, bowel sounds normoactive No focal/rebound tenderness, no organomegaly, no mass or hernia : No CVA tenderness, no bladder mass palpable, genitalia-NE SKIN: Turgor normal, color pale +1, no rash, no icterus, open wound proximal to L knee EXTs: No edema, color pale +1, no rash, no ecchymosis DP +2, capillary refill <2 seconds JOINTS: reduced from osteoarthritis of bilateral hip and knee joints BACK: No apparent lumbosacral spinal muscle tenderness, LYMPH NODES: No cervical, axillary or inguinal lymph nodes Neuro: Awake alert oriented 3, coherent, all cognitives- intact, cranial nerves 2-12 intact Motor- No pronator drift, no focal motor deficit, Sensory- changes of peripheral neuropathy DTR +2, gait steady PSYCH: Affect mildly depressed-denies suicidal ideation laboratory and microbiology Laboratory Tests 07/30/24 07:07 Test 07/30/24 07:07 Range/Units Serum Glucose 122 H 74-106 mg/dL Problem List Suspect septic arthritis of R knee acute asthmatic bronchitis Severe osteoarthritis of R knee with effusion Morbid obesity Assessment/Plan Treatment plans as of today Continue hospital stay at telemetry Continue IV antibiotics Await for L knee arthroscopy followed by debridement as per discretion of Dr. Caden [place] Consider ID consult-refer to Dr. Ed Charles Dietary Evaluation Review Recommendations by RD: Dietary education by RD, Protein Supplementation Comments: 1) Initiate Glucerna @ 8 fl oz bid. Encourage optimal PO intake 2) Initiate vitamin C @ 500 mg bid and zinc sulfate @ 220 mg qd for 7-10 days 3) Refer to outpatient RD/[facility] for weight management 4) Follow-up with pulmonology and rheumatology 5) Continue to monitor I&O, labs, and skin integrity Expected Outcomes/Goals: 1) appetite and labs to improve 2) wound to improve 3) follow-up in 3-5 days SULY CHARLES MD August 05, 2024 22:50
[2024-08-06] VITALS (15 sets, daily range): BP systolic 110–156; BP diastolic 53–72; PULSE 50–87; RESP 16–20; TEMP 98–98.6; O2SAT 93–100
[2024-08-06 07:33] LABS: Calcium 9.2 mg/dL (8.7-10.4)
[2024-08-06 07:34] LABS: Albumin 4.1 g/dL (3.2-4.8); Anion Gap 11 (5-15); BUN/Creatinine Ratio 16.4 (10.0-20.0); Bilirubin, Total 0.3 mg/dL (0.2-1.0); Blood Urea Nitrogen 11 mg/dL (9-23); Carbon Dioxide 24 mmol/L (20-31); Chloride 103 mmol/L (98-107); Potassium 3.5 mmol/L (3.5-5.1); Sodium 138 mmol/L (136-145); Total Protein 7.4 g/dL (5.7-8.2)
[2024-08-06 07:35] LABS: Alanine Aminotransferase 57 U/L (7-40); Alkaline Phosphatase 160 U/L (46-116); Aspartate Aminotransferase 79 U/L (13-40); Glucose 110 mg/dL (74-106)
[2024-08-06 07:46] LABS: Hematocrit 35.1 % (36.0-46.0); Hemoglobin 11.2 g/dL (12.2-16.2); Mean Corpuscular Hemoglobin 24.7 pg (28.0-32.0); Mean Corpuscular Hgb Conc. 31.9 g/dL (32.0-36.0); Mean Corpuscular Volume 77.5 fL (80.0-100.0); Platelet Count (auto) 350 10^3/uL (140-450); Red Blood Cells 4.53 10^6/uL (4.0-5.20); Red Cell Distribution Width 15.2 % (11.8-14.3); White Blood Cell 8.2 10^3/uL (4.4-10.8)
[2024-08-06 07:48] LABS: Band Neutrophils % (manual) 0; Basophils % (manual) 0 (0.0-2.0); Blast Cells 0; Metamyelocytes % 0; Myelocytes % 0; Promyelocytes % 0; Reactive Lymphocytes 0
[2024-08-06 08:52] LABS: Eosinophils % (manual) 15 (0-7); Hypochromia Slight; Lymphocytes % (manual) 19 (10.0-50.0); Monocytes % (manual) 11 (0-12); Platelet Estimate Adequate
--- NOTE | 2024-08-06 09:50 | DVHPN2 ---
Progress Note - Dictate Medical Necessity Reason Pt with a Central, PICC or Fol: No Subjective The case is discussed with Dr. Caden hoffman Since patient's knee joint does not have an bacterial growth, recommendation is to Administer home IV antibiotics- Rocephin for three weeks Patient is referred to psychiatric social worker The patient is awaiting to receive orthopedic surgery Her pains in right knee are improving Patient is able to transfer out of the bed to [facility] only Tried to contact Dr. Bone about surgical treatment plans Patient receives pain management through IV Toradol and oxycodone vital signs Vital Sign Date Time Temp Pulse Resp B/P (MAP) Pulse Ox O2 Delivery O2 Flow Rate FiO2 08/06/24 09:39 95 Room Air* 0 21 08/06/24 08:43 17 08/06/24 06:47 87 156/60 (92) 08/06/24 05:00 98.5 98.5 Total Intake and Output 08/05/24 08/05/24 08/06/24 15:00 23:00 07:00 Intake Total 1124 ml 350 ml Balance 1124 ml 350 ml medications Current Medications Medications Dose Ordered Sig/Kitty Route Start Time Stop Time Status Last Admin Dose Admin Albuterol 2.5 mg Q4HPRN PRN NEB 07/29/24 21:00 08/05/24 15:02 2.5 MG Betamethasone Dipropion Augmented 1 applic DAILY TOP 07/30/24 10:00 08/05/24 08:47 1 APPLIC Clopidogrel Bisulfate 75 mg DAILY PO 07/30/24 10:00 07/30/24 10:34 75 MG Docusate Sodium 100 mg DAILY PRN PO 07/29/24 21:00 08/04/24 13:18 100 MG Duloxetine HCl 30 mg DAILY PO 07/30/24 10:00 08/05/24 08:45 30 MG Empaglifozin 10 mg DAILY PO 07/30/24 10:00 08/05/24 08:45 10 MG Metoprolol Succinate 50 mg DAILY PO 07/30/24 10:00 08/05/24 09:20 50 MG Multivitamins 1 tab DAILY PO 07/30/24 10:00 08/05/24 08:45 1 TAB Oxybutynin Chloride 10 mg DAILY PO 07/30/24 10:00 08/05/24 08:45 10 MG Pantoprazole Sodium 40 mg QAM PO 07/30/24 07:00 08/06/24 05:54 40 MG Valsartan 160 mg DAILY PO 07/30/24 10:00 08/05/24 09:19 160 MG Patient Own Medication 1 tab DAILY PO 07/30/24 10:00 08/04/24 10:44 1 TAB Citalopram Hydrobromide 40 mg DAILY PO 07/30/24 10:00 08/05/24 08:44 40 MG Atorvastatin Calcium 40 mg DAILY PO 07/30/24 10:00 08/05/24 08:45 40 MG Patient Own Medication 4 mg BID PO 07/30/24 10:00 Losartan Potassium 100 mg DAILY PO 07/30/24 10:00 08/05/24 09:20 100 MG Nitroglycerin 0.4 mg Q5MINP PRN SL 07/29/24 21:15 Morphine Sulfate 2 mg Q30M PRN IV 07/29/24 21:15 Hydrochlorothiazide 12.5 mg DAILY PO 07/30/24 10:00 Mupirocin 1 applic BID TOP 07/31/24 10:00 08/05/24 08:47 1 APPLIC Oxycodone HCl 15 mg Q6HPRN PRN PO 07/31/24 00:00 08/06/24 06:36 15 MG Insulin Human Lispro AC SC 07/31/24 07:00 08/05/24 05:52 2 UNITS Insulin Human Lispro HS SC 07/31/24 22:00 Acetaminophen 650 mg Q6HP PRN PO 07/31/24 07:30 08/05/24 12:20 650 MG Hydroxyzine Pamoate 25 mg Q6HP PRN PO 08/05/24 01:00 08/05/24 21:50 25 MG objective General appearance: Well-developed, well-nourished middle-aged female appears generally weak Awake alert oriented x3 , Appears in stated age group without respiratory distress Head: Normocephalic, non-traumatic Eyes: EOM-full, AMBAR, sclera non-icteric, conjunctive-pink, Eyeballs sunken 0, fundoscopic grade 1 AV changes ENT: ENT-No congestion, NSL bilateral symmetrical, oral mucosa wet Neck: Supple, carotid upstroke +2, trachea R off midline, loss of adipose tissue No goiter/lymph node enlargement JVD-3 cm, C spine- Full ROM Chest: Bilateral symmetrical expansions, No costochondral tenderness Breasts: deferred Lungs: clear breath sounds all over anterior and posterior lung [place] Reduced at L base> R base CVS: PMI-1.5 cm medial to L MCL in fifth ICS , S1-S2 NSR no S3 GI: Abdomen soft, obese, bowel sounds normoactive No focal/rebound tenderness, no organomegaly, no mass or hernia : No CVA tenderness, no bladder mass palpable, genitalia-NE SKIN: Turgor normal, color pale +1, no rash, no icterus, open wound proximal to L knee EXTs: No edema, color pale +1, no rash, no ecchymosis DP +2, capillary refill <2 seconds JOINTS: reduced from osteoarthritis of bilateral hip and knee joints BACK: No apparent lumbosacral spinal muscle tenderness, LYMPH NODES: No cervical, axillary or inguinal lymph nodes Neuro: Awake alert oriented 3, coherent, all cognitives- intact, cranial nerves 2-12 intact Motor- No pronator drift, no focal motor deficit, Sensory- changes of peripheral neuropathy DTR +2, gait steady PSYCH: Affect mildly depressed-denies suicidal ideation laboratory and microbiology Laboratory Tests 08/06/24 06:50 Test 08/06/24 06:50 Range/Units Serum Glucose 110 H 74-106 mg/dL Problem List Suspect septic arthritis of R knee acute asthmatic bronchitis Severe osteoarthritis of R knee with effusion Morbid obesity Assessment/Plan Treatment plans as of today Continue hospital stay at telemetry Continue IV antibiotics Await for L knee arthroscopy followed by debridement as per discretion of Dr. Caden Hoffman Consider ID consult-refer to Dr. Ed Charles Dietary Evaluation Review Recommendations by RD: Dietary education by RD, Protein Supplementation Comments: 1) Initiate Glucerna @ 8 fl oz bid. Encourage optimal PO intake 2) Initiate vitamin C @ 500 mg bid and zinc sulfate @ 220 mg qd for 7-10 days 3) Refer to outpatient RD/[facility] for weight management 4) Follow-up with pulmonology and rheumatology 5) Continue to monitor I&O, labs, and skin integrity Expected Outcomes/Goals: 1) appetite and labs to improve 2) wound to improve 3) follow-up in 3-5 days SULY CHARLES MD August 06, 2024 09:50
[2024-08-06 10:26] LABS: INR 1.07 (0.9-1.15); Partial Thromboplastin Time 33.3 SEC (24.5-34.5); Prothrombin Time 11.3 sec (9.3-11.8)
[2024-08-07] VITALS (11 sets, daily range): BP systolic 104–145; BP diastolic 60–72; PULSE 57–77; RESP 15–19; TEMP 36.7; O2SAT 92–100
[2024-08-07] MEDS: KETOROLAC TROMETH 30 MG/ML 1ML VIAL IV ONE (02:04)
[2024-08-07] MEDS: BUPIVACAINE 0.25% INJ 50ML VIAL ONE (09:44)
[2024-08-07] MEDS: ceFAZolin 2 GM/D5W50ml 50 ML IV ONE (09:52)
[2024-08-07] MEDS ORDERED: fentaNYL CITRATE 100 MCG/2 ML VL ONE (09:55)
[2024-08-07] MEDS ORDERED: ONDANSETRON HCL 4 MG/2 ML VIAL ONE (10:22)
[2024-08-07] MEDS ORDERED: HYDROmorphone HCL 2 MG/ML VL/or syr ONE (10:23)
[2024-08-07] MEDS ORDERED: KETOROLAC TROMETH 30 MG/ML 1ML VIAL IV PRN (10:45)
[2024-08-07] MEDS ORDERED: MEPERIDINE HCL (25 MG/ML) 1ML VIAL IV PRN (11:15)
[2024-08-07] MEDS: ONDANSETRON HCL 4 MG/2 ML VIAL IV ONE (11:15)
[2024-08-07] MEDS: HYDROmorphone HCL 2 MG/ML VL/or syr IV PRN (11:20)
[2024-08-07] MEDS: ACETAMINOPHEN IV 1000 MG/100ML (10MG/ML) IV PRN (11:55)
--- NOTE | 2024-08-07 12:38 | DVHDS2 ---
Discharge Summary Date of Admission July 29, 2024 at 19:42 Date of Discharge: August 07, 2024 Labs/Diagnostic Data: Laboratory Results Test 08/07/24 06:13 08/06/24 06:50 08/02/24 15:20 08/01/24 13:35 POC Glucose 115 mg/dl (70-106) White Blood Count 8.2 10^3/uL (4.4-10.8) Red Blood Count 4.53 10^6/uL (4.0-5.20) Hemoglobin 11.2 g/dL (12.2-16.2) Hematocrit 35.1 % (36.0-46.0) Mean Corpuscular Volume 77.5 fL (80.0-100.0) Mean Corpuscular Hemoglobin 24.7 pg (28.0-32.0) Mean Corpuscular Hemoglobin Concent 31.9 g/dL (32.0-36.0) Red Cell Distribution Width 15.2 % (11.8-14.3) Platelet Count 350 10^3/uL (140-450) Mean Platelet Volume 7.9 fL (6.9-10.8) Neutrophils (%) (Auto) % (37.0-80.0) Lymphocytes (%) (Auto) % (10.0-50.0) Monocytes (%) (Auto) % (0.0-12.0) Eosinophils (%) (Auto) % (0.0-7.0) Basophils (%) (Auto) % (0.0-2.0) Neutrophils # (Auto) 10 ^3/uL (1.6-8.6) Lymphocytes # (Auto) 10 ^3/uL (0.4-5.4) Monocytes # (Auto) 10 ^3/uL (0-1.3) Differential Total Cells Counted 100.0 (100) Neutrophils % (Manual) 55 (37.0-80.0) Band Neutrophils % (Manual) 0 Lymphocytes % (Manual) 19 (10.0-50.0) Monocytes % (Manual) 11 (0-12) Eosinophils % (Manual) 15 (0-7) Basophils % (Manual) 0 (0.0-2.0) Metamyelocytes % (manual) 0 Myelocytes % (Manual) 0 Promyelocytes % (Manual) 0 Blast Cells % (Manual) 0 Reactive Lymphocytes 0 Platelet Estimate Adequate Hypochromasia (manual) Slight Microcytosis Slight Prothrombin Time 11.3 sec (9.3-11.8) Prothrombin Time INR 1.07 (0.9-1.15) Activated Partial Thromboplast Time 33.3 SEC (24.5-34.5) Sodium Level 138 mmol/L (136-145) Potassium Level 3.5 mmol/L (3.5-5.1) Chloride Level 103 mmol/L (98-107) Carbon Dioxide Level 24 mmol/L (20-31) Anion Gap 11 (5-15) Blood Urea Nitrogen 11 mg/dL (9-23) Creatinine 0.67 mg/dL (0.550-1.02) Glomerular Filtration Rate Calc 96 mL/min (>90) BUN/Creatinine Ratio 16.4 (10.0-20.0) Serum Glucose 110 mg/dL (74-106) Calcium Level 9.2 mg/dL (8.7-10.4) Total Bilirubin 0.3 mg/dL (0.2-1.0) Aspartate Amino Transferase (AST) 79 U/L (13-40) Alanine Aminotransferase (ALT) 57 U/L (7-40) Alkaline Phosphatase 160 U/L (46-116) Total Protein 7.4 g/dL (5.7-8.2) Albumin 4.1 g/dL (3.2-4.8) Body Fluid Source Knee fluid Body Fluid WBC (Manual) 80255 CUMM (0-200) Body Fluid RBC (Manual) 1150 CUMM (0-2000) Body Fluid Mononuclear Cells 5 % Body Fluid Polymorphonuclear Cells 95 % (0-25) Bile Fluid Crystals Negative Erythrocyte Sedimentation Rate 28 mm/hr (0-20) C-Reactive Protein High Sensitivity 3.42 mg/dL (<1.0) Test 07/30/24 07:07 07/30/24 05:42 07/29/24 21:32 Eosinophils # (Auto) 1.3 10 ^3/uL (0-0.8) Basophils # (Auto) 0.1 10 ^3/uL (0-0.2) Nucleated Red Blood Cells 0.0 % Triglycerides Level 109 mg/dL (< 150) Cholesterol Level 103 mg/dL (< 200) LDL Cholesterol 56 mg/dL (< 100) HDL Cholesterol 34 mg/dL (40-59) Urine Color Light-yellow (Yellow) Urine Clarity Turbid (Clear) Urine pH 6.5 (5.0-9.0) Urine Specific [place] 1.017 (1.001-1.035) Urine Protein 1+ (Negative) Urine Ketones Negative (Negative) Urine Blood Trace /uL (Negative) Urine Nitrite Negative (Negative) Urine Bilirubin Negative (Negative) Urine Urobilinogen Normal mg/dL (Negative) Urine Leukocyte Esterase 3+ /uL (Negative) Urine RBC 26 /hpf (0 - 4) Urine Microscopic WBC 265 /HPF (0-5) Urine Squamous Epithelial Cells Few /hpf (<5) Urine Bacteria Few /hpf (None Seen) Urine Mucus Few (None Seen) Urine Glucose 4+ mg/dL (Normal) D-Dimer, Quantitative 1.31 mg/L FEU (0.0-0.49) Phosphorus Level 3.0 mg/dL (2.4-5.1) Magnesium Level 1.6 mg/dL (1.6-2.6) Other Laboratory Tests 08/06/24 06:50 Final Diagnosis/Problems List 1. R knee pains a. Joint infection b. Osteoarthritis 2. Acute asthmatic bronchitis 3. Acute flare up of afibromyalgia Discharge Disposition: Home Discharge Instruct/Medications Diet: Consistent carbohydrate, Cardiac 2g Na,low cholest Diet comment: 1800 calorie ADA low Na 2g Low chol Activity: Light activity Follow Up/Referral: Dr. Charles in 1-5 days Medications: D/C Med rec Discharge Statement: "Patient was advised to return to the ER or call 911 if any headaches, dizziness, shortness of breath, chest pain, abdominal pain, bleeding, fevers, or worsening of medical condition. Patient was counseled about treatment plan, medications, possible side effects, patientverbalized understanding. All questions were answered to the best of my ability. This discharge took greater then 30 minutes in planning, reviewing documentation, counseling the patient, and discussing with other team members." ASSESSMENT ASSESSMENT Assessment 1. R knee pains a. Joint infection b. Osteoarthritis 2. Acute asthmatic bronchitis 3. Acute flare up of afibromyalgia SULY CHARLES MD August 07, 2024 12:38
--- NOTE | 2024-08-07 22:11 | DVHPN2 ---
Consult Progress Note Date Seen: August 07, 2024 Subjective Patient reports: Other (underwent operative debridement of knee and the wound is now packed and it is clean with no signs of blood or pus . no longer having significant amounts of pain in leg ) Objective vital signs Vital Sign Date Time Temp Pulse Resp B/P (MAP) Pulse Ox O2 Delivery O2 Flow Rate FiO2 08/07/24 13:23 36.7 77 08/07/24 12:15 15 117/67 (84) 96 08/07/24 12:10 Room Air 98 08/07/24 11:15 5.0 Total Intake and Output 08/06/24 08/06/24 08/07/24 15:00 23:00 07:00 Intake Total 0 ml 1080 ml 750 ml Balance 0 ml 1080 ml 750 ml medications Physical Exam: - General: NAD, patient is in bed stating significant pain with movement. - Neck: Supple. No masses. - HEENT: PERRL. Normal lids and conjunctiva. Moist mucous membranes. Oropharynx without lesions, exudates, or excessive erythema. Normal appearance of the external aspects of the nose and ears. - Heart: Regular rhythm, normal rate. No murmur. No lower extremity edema. - Lungs: Normal respiratory effort. Clear to auscultation bilaterally with mild wheezing and diminished breath sounds. - Abdomen: Soft. Non-tender. Non-distended. No masses or abdominal hernia. - Msk: No digital cyanosis. Normal strength and tone in all 4 limbs. No tender joints. - Skin: Warm and dry, no rashes. - Neuro: Alert. No facial droop or slurred speech. Extra-ocular movements intact. Sensation intact to soft touch in all 4 limbs. - Psych: Appropriate mood. Full affect. Oriented to person, place, time, and situation. laboratory and microbiology Laboratory Tests 08/06/24 06:50 Test 08/06/24 06:50 Range/Units Serum Glucose 110 H 74-106 mg/dL Problem List/Assessment/Plan Problems(with codes): (1) Injury of left rotator cuff (2) NSTEMI (non-ST elevated myocardial infarction) (3) Acute exacerbation of chronic obstructive pulmonary disease (COPD) (4) Acute chest pain (5) Osteoarthritis of right knee (6) Right knee pain (7) Eczema (8) Acute coronary syndrome (9) URINARY TRACT INFECTION, SITE NOT SPECIFIED Problem List/Assessment/Plan ASSESSMENT AND PLAN: ID Problem List: - Hypertension - Diabetes - Hypercholesterolemia - Obesity - Fibromyalgia - Coronary Artery Disease (CAD) - COPD - UTI/Pyelonephritis - Potential CHF exacerbation - Potential pneumonia Assessment This is a 63-year-old female with a past medical history significant for hypertension, diabetes, hypercholesterolemia, obesity, fibromyalgia, coronary artery disease (post-PCTA in 2007), and COPD. Presenting symptoms include diffuse body weakness, dysuria, and suprapubic pain. Admitted for concern for UTI, pyelonephritis, exacerbation of fibromyalgia, and COPD. The patient endorses worsening wheezing but no significant sputum production, no fevers or chills noted. The symptoms have been ongoing for the last three to four days. treated last admission w/ effusion drainage and antibiotics sp knee aspiration: fluid analysis not cw infected knee joint 08/05: cultures are negative and whitecount is 11.1 08/06: appears to not be responding to antibiotic therapy to improve pain 08/07: whitecount down to 8.2 Plan: - send home on oral cefdinir 300mg PO BID for 7 days after debridement - follow up with patient in 2 weeks - defer to surgery as patient may require debridement of the bursa and joint to improve infectious picture - Continue ceftriaxone - no need for antibiotics upon discharge - Cardiopulmonary: Monitor for CHF and COPD exacerbation, recommend renal ultrasound, and check for COVID-19 and influenza. - Pain/Fibromyalgia: Continue home medications for pain management, monitor respiratory status closely. - Referral: Follow-up with urine culture results. - Isolation Precautions: Standard precautions. - Patient Education: Discuss diagnosis and treatment plan with the patient and address any concerns. Plan discussed with: Other Dietary Evaluation Review Recommendations by RD: Dietary education by RD, Protein Supplementation Comments: 1) Initiate Glucerna @ 8 fl oz bid. Encourage optimal PO intake 2) Initiate vitamin C @ 500 mg bid and zinc sulfate @ 220 mg qd for 7-10 days 3) Refer to outpatient RD/[facility] for weight management 4) Follow-up with pulmonology and rheumatology 5) Continue to monitor I&O, labs, and skin integrity Expected Outcomes/Goals: 1) appetite and labs to improve 2) wound to improve 3) follow-up in 3-5 days HUMAIRA CARDOZO MD August 07, 2024 22:11
--- NOTE | 2024-08-07 22:11 | DVHPN2 ---
Consult Progress Note Date Seen: August 06, 2024 Subjective Patient reports: Other (still havign significants amounts of pain , no drainage or redness from the wound on her knee but it is still swollen . still has a diffuse rash across her body ) Objective vital signs Vital Sign Date Time Temp Pulse Resp B/P (MAP) Pulse Ox O2 Delivery O2 Flow Rate FiO2 08/07/24 13:23 36.7 77 08/07/24 12:15 15 117/67 (84) 96 08/07/24 12:10 Room Air 98 08/07/24 11:15 5.0 Total Intake and Output 08/06/24 08/06/24 08/07/24 15:00 23:00 07:00 Intake Total 0 ml 1080 ml 750 ml Balance 0 ml 1080 ml 750 ml medications Physical Exam: - General: NAD, patient is in bed stating significant pain with movement. - Neck: Supple. No masses. - HEENT: PERRL. Normal lids and conjunctiva. Moist mucous membranes. Oropharynx without lesions, exudates, or excessive erythema. Normal appearance of the external aspects of the nose and ears. - Heart: Regular rhythm, normal rate. No murmur. No lower extremity edema. - Lungs: Normal respiratory effort. Clear to auscultation bilaterally with mild wheezing and diminished breath sounds. - Abdomen: Soft. Non-tender. Non-distended. No masses or abdominal hernia. - Msk: No digital cyanosis. Normal strength and tone in all 4 limbs. No tender joints. - Skin: Warm and dry, no rashes. - Neuro: Alert. No facial droop or slurred speech. Extra-ocular movements intact. Sensation intact to soft touch in all 4 limbs. - Psych: Appropriate mood. Full affect. Oriented to person, place, time, and situation. laboratory and microbiology Laboratory Tests 08/06/24 06:50 Test 08/06/24 06:50 Range/Units Serum Glucose 110 H 74-106 mg/dL Problem List/Assessment/Plan Problems(with codes): (1) Injury of left rotator cuff (2) NSTEMI (non-ST elevated myocardial infarction) (3) Acute chest pain (4) Acute exacerbation of chronic obstructive pulmonary disease (COPD) (5) Osteoarthritis of right knee (6) Right knee pain (7) Eczema Problem List/Assessment/Plan ASSESSMENT AND PLAN: ID Problem List: - Hypertension - Diabetes - Hypercholesterolemia - Obesity - Fibromyalgia - Coronary Artery Disease (CAD) - COPD - UTI/Pyelonephritis - Potential CHF exacerbation - Potential pneumonia Assessment This is a 63-year-old female with a past medical history significant for hypertension, diabetes, hypercholesterolemia, obesity, fibromyalgia, coronary artery disease (post-PCTA in 2007), and COPD. Presenting symptoms include diffuse body weakness, dysuria, and suprapubic pain. Admitted for concern for UTI, pyelonephritis, exacerbation of fibromyalgia, and COPD. The patient endorses worsening wheezing but no significant sputum production, no fevers or chills noted. The symptoms have been ongoing for the last three to four days. treated last admission w/ effusion drainage and antibiotics sp knee aspiration: fluid analysis not cw infected knee joint 08/05: cultures are negative and whitecount is 11.1 08/06: appears to not be responding to antibiotic therapy to improve pain Plan: - defer to surgery as patient may require debridement of the bursa and joint to improve infectious picture - Continue ceftriaxone - no need for antibiotics upon discharge - Cardiopulmonary: Monitor for CHF and COPD exacerbation, recommend renal ultrasound, and check for COVID-19 and influenza. - Pain/Fibromyalgia: Continue home medications for pain management, monitor respiratory status closely. - Referral: Follow-up with urine culture results. - Isolation Precautions: Standard precautions. - Patient Education: Discuss diagnosis and treatment plan with the patient and address any concerns. Plan discussed with: Other Dietary Evaluation Review Recommendations by RD: Dietary education by RD, Protein Supplementation Comments: 1) Initiate Glucerna @ 8 fl oz bid. Encourage optimal PO intake 2) Initiate vitamin C @ 500 mg bid and zinc sulfate @ 220 mg qd for 7-10 days 3) Refer to outpatient RD/[facility] for weight management 4) Follow-up with pulmonology and rheumatology 5) Continue to monitor I&O, labs, and skin integrity Expected Outcomes/Goals: 1) appetite and labs to improve 2) wound to improve 3) follow-up in 3-5 days HUMAIRA CARDOZO MD August 07, 2024 22:11
--- NOTE | 2024-08-09 15:14 | DVHOP2 ---
Operative Report - 2 Report Details Date: 08/07/24 Preop Diagnosis: Right knee recurrent effusion with possible septic arthritis Postop Diagnosis: Right knee recurrent effusion with possible septic arthritis Surgeon: Jhonatan Cuba MD Senior Android Software Engineer: Reinier REYES Anesthesiologist: Ely FITCH Anesthesia: General Consent: The patient was informed of the risks and benefits of the procedure. These include but are not limited to complications of anesthesia, postoperative infection, incomplete relief of symptoms, recurrence of symptoms, damage to blood vessels, nerves and tendons, deep venous thrombosis, pulmonary embolism and possible need for repeat surgery in the future. Estimated Blood Loss: 2 cc Indications for Surgery: recurrent effusion, elevated PMN on aspiration, pain - has been on IV abx Name of Procedure Performed Right knee arthroscopy, irrigation and debridement, synovectomy, partial medial and lateral menisectomy, medial/patella/lateral chondroplasty Procedure Details Procedure Details: In the preoperative holding area, the consent was reviewed and the appropriate extremity was verified by the patient and marked with my initials. The patient was then transferred to the operating theatre. Appropriate anesthetia was induced. All bony prominences were well padded. A time out was performed verifying the side and site of surgery according to standard protocol. Preoperative antibiotics were given. A well padded thigh tourniquet was applied. The extremity was then prepped and draped in the usual sterile fashion. The extremity was exsanguinated and the tourniquet was inflated. Using an 11-blade scalpel with the blade up, we made a vertical parapatellar stab incision in the skin and capsule laterally. We introduced the obturator and trochar and then removed the trochar and introduced the arthroscopic camera. Patient noted to have about 80 cc of fluid removed. A diagnostic arthroscopy was performed as follows: A systematic examination of the knee beginning with the suprapatellar pouch, medial and lateral facets of the patella, patellofemoral articulation, trochlea, lateral gutter, lateral joint line, popliteus hiatus, medial gutter, medial compartment, notch including the ACL and PCL, posteromedial knee joint, lateral compartment, medial and lateral femoral condyles was undertaken. Synovectomy was performed with multiple areas of severe synovitis. We irrigated with 9L of normal saline. Under direct vision of the arthroscopic camera, we used spinal needle and then an 11-blade to make a medial stab incision and introduced a probe. The menisci were probed above and below, and excursion was checked. Using a combination of biters and the shaver, a partial medial and lateral menisectomy was performed bringing the meniscus back to stable margins. Were necessary, a chondroplasty was performed of the patella, trochlea medial and latearl condyle and tibial plateau with multiple areas of grade IV arthritis. The knee was then copiously irrigated and all instruments were removed. We drained the knee of all fluid. We closed our stab incisions with nylon. We released the tourniquet . We verified all lower extremity compartments were soft and compressible and that we had intact distal pulses. A sterile dressing was placed. The patient was allowed to wake up from anesthesia and was transferred to the recovery room in stable condition. Condition Fair Disposition Still a Patient JHONATAN CUBA MD August 09, 2024 15:14
== END 2024-08-07 16:15 | disposition home or self-care (01) | DRG 488 ==
LOC: TELE-WESTW 19:42
PROVIDERS: ADMIT Specialist; ATTEND Specialist
PROC: 05HF33Z Insertion of Infusion Device into Left Cephalic Vein, Percutaneous Approach (ICD-10-PCS; 2024-08-06)
PROC: B54NZZA Ultrasonography of Left Upper Extremity Veins, Guidance (ICD-10-PCS; 2024-08-06)
PROC: 0SBC4ZZ Excision of Right Knee Joint, Percutaneous Endoscopic Approach (ICD-10-PCS; 2024-08-07)
PROC: 0SBC4ZZ Excision of Right Knee Joint, Percutaneous Endoscopic Approach (ICD-10-PCS; principal; 2024-08-07 10:10)
DX: M17.11 Unilateral primary osteoarthritis, right knee (principal); J44.0 Chronic obstructive pulmonary disease with (acute) lower respiratory infection; Z68.41 Body mass index [BMI] 40.0-44.9, adult; J44.1 Chronic obstructive pulmonary disease with (acute) exacerbation; J20.9 Acute bronchitis, unspecified; E66.01 Morbid (severe) obesity due to excess calories; G89.29 Other chronic pain; E11.9 Type 2 diabetes mellitus without complications; E78.00 Pure hypercholesterolemia, unspecified; I10 Essential (primary) hypertension; Z96.642 Presence of left artificial hip joint; I25.10 Atherosclerotic heart disease of native coronary artery without angina pectoris; M79.7 Fibromyalgia; Z82.49 Family history of ischemic heart disease and other diseases of the circulatory system; Z83.3 Family history of diabetes mellitus; Z88.8 Allergy status to other drugs, medicaments and biological substances; Z79.84 Long term (current) use of oral hypoglycemic drugs; M11.261 Other chondrocalcinosis, right knee
CPT/HCPCS: 36415; 71046; 73562; 80048; 80053; 80061; 81001; 82962; 83735; 84100; 85007; 85025; 85027; 85379; 85610; 85652; 85730; 86141; 86850; 86900; 86901; 87081; 87086; 87205; 89051; 89060; 94640; G0378; J0131; J1815; J1885; J2405; J3490

== ENCOUNTER 2024-10-14 00:42 | Inpatient (IN) | payer MEDICARE, MEDICAID, OTHER ==
[2024-10-14] VITALS (16 sets, daily range): BP systolic 119–142; BP diastolic 54–96; PULSE 64–78; RESP 17–32; TEMP 97–98; O2SAT 95–100
[~2024-10-14] VITALS: Ht 165.1 cm; Wt 107.9 kg
[~2024-10-14 00:42] MED LIST changes: -AUG875T PO
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
[2024-10-14 01:13] LABS: Hematocrit 38.5 % (36.0-46.0); Hemoglobin 12.2 g/dL (12.2-16.2); Mean Corpuscular Hemoglobin 24.1 pg (28.0-32.0); Mean Corpuscular Volume 76.0 fL (80.0-100.0); Nucleated Red Blood Cells % 0.0 %
[2024-10-14 01:17] LABS: Potassium 3.6 mmol/L (3.5-5.1); Sodium 142 mmol/L (136-145)
[2024-10-14 01:18] LABS: Anion Gap 10 (5-15); Calcium 9.0 mg/dL (8.7-10.4); Carbon Dioxide 23 mmol/L (20-31); Chloride 109 mmol/L (98-107)
[2024-10-14 01:23] LABS: BUN/Creatinine Ratio 13.9 (10.0-20.0); Blood Urea Nitrogen 10 mg/dL (9-23)
[2024-10-14 01:24] LABS: Glucose 127 mg/dL (74-106)
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
[2024-10-14] MEDS ORDERED: NITROGLYCERIN 0.4 MG SL TAB SL PRN (04:15)
[2024-10-14] MEDS ORDERED: MORPHINE SULFATE INJ 2 MG/ml SYRG IV PRN (04:15)
[2024-10-14] MEDS ORDERED: ALBUTEROL SULF HFA 90MCG INH 200DOSE IN PRN (04:15)
[2024-10-14] MEDS ORDERED: DOCUSATE SOD 100 MG CAP PO PRN (04:15)
[2024-10-14] MEDS ORDERED: ALBUTEROL SULF 2.5 MG/0.5ML(0.5%) NEB SOLN NEB PRN (04:15)
[2024-10-14] MEDS ORDERED: ATORVASTATIN 20 MG TAB PO ONE (04:15)
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
[2024-10-14] MEDS: PANTOPRAZOLE 40 MG TAB PO SCH (06:09)
[2024-10-14] MEDS: ATORVASTATIN 20 MG TAB PO ONE (06:09)
[2024-10-14] MEDS: INSULIN LISPRO (HUMAN) 100 UNITS/ML ML SC SCH ×2 (06:58→21:59)
[2024-10-14] MEDS: ACCU-CHEK COMFORT CURVE STRIP VI ONE (07:00)
[2024-10-14] MEDS ORDERED: PANTOPRAZOLE 40 MG TAB PO SCH (07:00)
[2024-10-14] MEDS: SOD CHL 0.45% WITH 20MEQ KCL 1,000 ML IV ONE (07:45)
[2024-10-14] MEDS: CLOPIDOGREL BISULFATE 75 MG TAB PO SCH (07:49)
[2024-10-14] MEDS: cefTRIAXone 1GM/50ML D5W 50 ML IV ONE (08:39)
[2024-10-14] MEDS: HYDROmorphone HCL 2 MG/ML VL/or syr IV PRN ×2 (08:42→16:45)
[2024-10-14] MEDS: CITALOPRAM HYDROBR 20 MG TAB PO SCH (08:44)
[2024-10-14] MEDS: Tizanidine Hydrochloride 4 MG TABLET PO SCH (08:44)
[2024-10-14] MEDS: METFORMIN HYDROCHLORIDE PO SCH (08:44)
[2024-10-14] MEDS: VALSARTAN 80 MG TAB PO SCH (08:45)
[2024-10-14] MEDS: OXYBUTYNIN CHL 5 MG TAB PO SCH (08:45)
[2024-10-14] MEDS: EMPAGLIFLOZIN 10 MG TAB PO SCH (08:46)
[2024-10-14] MEDS: METOPROLOL SUCCINATE XL 50 MG TAB PO SCH (08:46)
[2024-10-14] MEDS: MULTIPLE VITAMIN TAB PO SCH (08:46)
[2024-10-14] MEDS: BETAMETHASONE DIPROP0.05% TOPICAL CREAM 15GM TOP SCH (09:53)
[2024-10-14] MEDS: MUPIROCIN 2% OINT 15gm or 22gm TOP SCH (09:53)
[2024-10-14] MEDS ORDERED: BETAMETHASONE DIPROPIONATE TD SCH (10:00)
[2024-10-14] MEDS ORDERED: VALSARTAN 80 MG TAB PO SCH (10:00)
[2024-10-14] MEDS ORDERED: MUPIROCIN CALCIUM TOP SCH (10:00)
[2024-10-14] MEDS ORDERED: EMPAGLIFLOZIN 10 MG TAB PO SCH (10:00)
[2024-10-14] MEDS ORDERED: MULTIPLE VITAMIN TAB PO SCH (10:00)
[2024-10-14] MEDS ORDERED: METOPROLOL SUCCINATE XL 50 MG TAB PO SCH (10:00)
[2024-10-14] MEDS ORDERED: PATIENTS OWN MEDICATION (Escitalopram Oxalate 1 TAB) PO SCH (10:00)
[2024-10-14] MEDS ORDERED: BETAMETHASONE DIPROP0.05% TOPICAL CREAM 15GM TOP SCH (10:00)
[2024-10-14] MEDS ORDERED: PATIENTS OWN MEDICATION (Aripiprazole 1 TAB) PO SCH (10:00)
[2024-10-14] MEDS ORDERED: METFORMIN HYDROCHLORIDE PO SCH (10:00)
[2024-10-14] MEDS ORDERED: TIZANIDINE HYDROCHLORIDE 4 MG PO SCH (10:00)
[2024-10-14] MEDS ORDERED: OXYBUTYNIN CHL 5 MG TAB PO SCH (10:00)
[2024-10-14] MEDS: ALBUTEROL SULF 2.5 MG/0.5ML(0.5%) NEB SOLN NEB PRN (13:57)
[2024-10-14] MEDS: ALBUTEROL SULF 2.5 MG/0.5ML(0.5%) NEB SOLN NEB SCH (23:20)
[2024-10-14] MEDS: HYDROCORTISONE SOD SUCC 100 MG/2ML INJ VIAL IV ONE (23:27)
[2024-10-15] VITALS (18 sets, daily range): BP systolic 131–165; BP diastolic 72–94; PULSE 68–104; RESP 16–22; TEMP 97.3–98.1; O2SAT 95–100
[2024-10-15] MEDS: PROMETHAZINE-DM 5 ML ORAL SYRUP GT PRN (04:04)
[2024-10-15 05:43] LABS: Hematocrit 34.9 % (36.0-46.0); Hemoglobin 11.5 g/dL (12.2-16.2); Mean Corpuscular Hemoglobin 25.1 pg (28.0-32.0); Mean Corpuscular Volume 76.1 fL (80.0-100.0); Nucleated Red Blood Cells % 0.1 %
[2024-10-15 05:45] LABS: Alanine Aminotransferase 10 U/L (7-40); Albumin 4.4 g/dL (3.2-4.8); Alkaline Phosphatase 114 U/L (46-116); Anion Gap 10 (5-15); BUN/Creatinine Ratio 19.4 (10.0-20.0); Blood Urea Nitrogen 13 mg/dL (9-23); Calcium 9.1 mg/dL (8.7-10.4); Carbon Dioxide 24 mmol/L (20-31); Chloride 107 mmol/L (98-107); Magnesium 2.0 mg/dL (1.6-2.6); Potassium 4.0 mmol/L (3.5-5.1); Sodium 141 mmol/L (136-145); Total Protein 7.4 g/dL (5.7-8.2)
[2024-10-15 05:46] LABS: Bilirubin, Total 0.3 mg/dL (0.2-1.0); Glucose 154 mg/dL (74-106)
[2024-10-15] MEDS: DOCUSATE SOD 100 MG CAP PO PRN (05:50)
--- NOTE | 2024-10-15 08:19 | DVH ---
CHEST RADIOGRAPH Indication: PNEUMONIA Technique: Single frontal view of the chest was obtained Comparison: XY CHEST PORTABLE on DOS: 10/14/24, XY CHEST PORTABLE on DOS: 06/10/24, XY CHEST XRAY 1 VIE W on DOS: 04/28/24, XY CHEST PORTABLE on DOS: 09/13/23, XY CHEST PORTABLE on DOS: 05/12/23 FINDINGS: Lines and Tubes: None Lungs: No focal consolidation. Pleura: No effusion. No pneumothorax. Cardiomediastinal contours: Unremarkable Bones: No acute osseous abnormality. IMPRESSION: No acute cardiopulmonary disease.
[2024-10-15] MEDS: KETOROLAC TROMETH 30 MG/ML 1ML VIAL IV PRN (09:03)
[2024-10-15] MEDS: VALSARTAN 80 MG TAB PO ONE (17:55)
[2024-10-15] MEDS: PROMETHAZINE-DM 5 ML ORAL SYRUP PO PRN (18:36)
[2024-10-15] MEDS: HYDROCORTISONE SOD SUCC 100 MG/2ML INJ VIAL IV SCH (23:27)
[2024-10-16] VITALS (17 sets, daily range): BP systolic 128–151; BP diastolic 64–93; PULSE 59–89; RESP 16–22; TEMP 97.9–99; O2SAT 94–100
--- NOTE | 2024-10-16 00:55 | DVHPN2 ---
Progress Note - Dictate Date Seen: Oct 15, 2024 Has the PT tested + for MRSA If YES, has PT been informed?: No Medical Necessity Reason Pt with a Central, PICC or Fol: No (Apathy out) Medical Necessity Reason IV antibiotics IV steroids Pain management Subjective The patient remains quite symptomatic shortness of breadth wheezing from acute exacerbation of COPD She is currently on IV antibiotics IV Solu-Cortef and bronchodilators med neb treatment During early evening hours patient also had uncontrolled hypertension BP 153- 164/83 Patient was due for valsartan which was given as a single dose during evening hours Consider increasing dose of valsartan to twice a day Overnight events are reviewed through medical chart and case discussion with patient's assigned RN while making rounds on patient on the day of service vital signs Vital Sign Date Time Temp Pulse Resp B/P (MAP) Pulse Ox O2 Delivery O2 Flow Rate FiO2 10/15/24 22:00 92 17 153/83 10/15/24 21:00 97.5 97 97.5 10/15/24 20:00 Nasal Cannula* 2 28 Total Intake and Output 10/15/24 10/15/24 10/16/24 15:00 23:00 07:00 Intake Total 640 ml Balance 640 ml medications Current Medications Medications Dose Ordered Sig/Kitty Route Start Time Stop Time Status Last Admin Dose Admin Nitroglycerin 0.4 mg Q5MINP PRN SL 10/14/24 04:15 Morphine Sulfate 2 mg Q30M PRN IV 10/14/24 04:15 Albuterol 90 mcg Q6HPRN PRN IN 10/14/24 04:15 Cancel Albuterol 2.5 mg Q4HPRN PRN NEB 10/14/24 04:15 Cancel Betamethasone Dipropion Augmented 1 applic DAILY TOP 10/14/24 10:00 10/15/24 09:02 1 APPLIC Hydromorphone HCl 0.6 mg Q4HP PRN IV 10/14/24 04:30 10/14/24 08:42 0.6 MG Hydromorphone HCl 0.8 mg Q4HP PRN IV 10/14/24 04:30 10/15/24 18:43 0.8 MG Ketorolac Tromethamine 30 mg [id number] PRN IV 10/14/24 04:30 10/19/24 04:29 10/15/24 09:03 30 MG Docusate Sodium 100 mg DAILY PRN PO 10/14/24 04:30 10/15/24 11:16 100 MG Duloxetine HCl 30 mg DAILY PO 10/14/24 10:00 10/15/24 09:06 30 MG Empaglifozin 10 mg DAILY PO 10/14/24 10:00 10/15/24 09:06 10 MG Metoprolol Succinate 50 mg DAILY PO 10/14/24 10:00 10/15/24 09:05 50 MG Multivitamins 1 tab DAILY PO 10/14/24 10:00 10/15/24 09:05 1 TAB Oxybutynin Chloride 10 mg DAILY PO 10/14/24 10:00 10/15/24 09:05 10 MG Pantoprazole Sodium 40 mg QAM PO 10/14/24 07:00 10/15/24 05:29 40 MG Valsartan 160 mg DAILY PO 10/14/24 10:00 10/15/24 09:04 160 MG Patient Own Medication 1 tab DAILY PO 10/14/24 10:00 Citalopram Hydrobromide 40 mg DAILY PO 10/14/24 10:00 10/15/24 09:06 40 MG Patient Own Medication 1 tab BID PO 10/14/24 10:00 Mupirocin 1 applic BID TOP 10/14/24 10:00 10/15/24 09:02 1 APPLIC Patient Own Medication 4 mg BID PO 10/14/24 10:00 Insulin Human Lispro AC [place] 10/14/24 07:00 10/15/24 16:49 2 UNITS Insulin Human Lispro HS [place] 10/14/24 22:00 10/15/24 22:01 2 UNITS Albuterol 2.5 mg Q4HWA NEB 10/14/24 23:00 10/15/24 19:39 2.5 MG Dexamethasone Sodium Phosphate 4 mg Q6HR IV 10/15/24 00:00 Hold 10/15/24 11:42 4 MG Hydrocortisone Sodium Succinate 100 mg Q6HP IV 10/16/24 00:00 10/15/24 23:27 100 MG Promethazine HCl/ Dextromethorphan 5 ml Q6HP PRN PO 10/15/24 18:30 10/15/24 18:36 5 ML objective Gen. appearance: Well-developed obese built middle-aged -[place] female appears to be hypovolemic, short of breath, reports chest discomfort HEENT Head normocephalic nontraumatic, Eyes-eyeball shrunken +2 Eyes EOMI, PERRLA, conjunctiva -pale, sclera nonicteric ENT-mild nasal congestion, no hyperemia of TM, Tongue/mucous membranes dry NECK: Supple, trachea R off midline , carotid upstroke +2, JVD 1 cm, No thyroid or lymph node enlargement, no use of accessory muscles [id number] muscle tenderness present, ROM at C-spine full CHEST: Emphysematous, costochondral tenderness, Hypoventilation at bilateral bases RS: Clear breath sounds at anterior lung calhoun,Reduced breath sounds at bilateral bases Diffuse late inspiratory wheezes, rales at posterior lung calhoun and bases CVS: PMI-2 cm lateral to L MCL line in the sixth ICS, S1-S2/A1-A2 normal sinus accentuated no gallop no murmur GI: Abdomen soft, obese +3, bowel sounds normoactive, no focal tenderness no mass or hernia, no hepatosplenomegaly Rectal: Stool OB negative no mass normal sphincter tone Genitourinary: Normal genitalia, no discharge, no focal lesions Back: CVA tenderness minimal, bilateral lumbosacral spinal muscle tenderness present Bilateral suprascapular point tenderness present, Straight leg raising test negative EXTs: Wounds Bilateral upper extremities-multiple pigmented scabs of varying size Pulses:Distal pulses +2, no rash, no edema, capillary refill instant, Feels peripherally warm Joints: Reduced ROM at bilateral hips and knee Neuro: Patient is awake alert oriented 3, affect depressed cognitive intact DTR +2, No focal motor deficit, changes of diabetic peripheral neuropathy, gait NE laboratory and microbiology Laboratory Tests 10/15/24 04:36 Test 10/15/24 04:36 Range/Units Serum Glucose 154 H 74-106 mg/dL Problem List Acute asthmatic bronchitis complicated by acute exacerbation of COPD Assessment/Plan 1) Acute asthmatic bronchitis complicated by Acute exacerbation of COPD Status: Acute Present at the time of admission: Yes Problem specific AP: - Based on history and physical exam-late inspiratory wheezes at bilateral bases Known history of COPD from passive exposure to smoking * Recommended sputum and blood cultures, * Recommended patient to receive [id number] bronchodilators med neb treatments q.4 hours when awake * Continued patient on IV antibiotics and IV Solu-Cortef as tolerated (2) Acute flare-up of fibromyalgia Triggered by lower respiratory infection Status: Acute on chronic Assessment & Plan: Known history of fibromyalgia * Acute flare up triggered by viral upper respiratory infection * Reports severe generalized aches and pains including chest upper and Lower back * Recommended IV steroids, nonsteroidals, pain management (3) Hypovolemia Status: Acute Assessment & Plan: The patient is noted to have hypovolemia on physical exam * Recommended IV hypotonic saline (4) Hypercholesterolemia Status: Chronic Assessment & Plan: Known history of hypercholesterolemia Recommended patient to receive low-cholesterol diet and Lipitor Ecotrin. Side effects of medications are discussed with the patient (5) Uncontrolled hypertension Status: Chronic Assessment & Plan: Known history of hypertension for long time Complicated by severe concentric LVH on 2D echo-09/11/2020 Currently on beta-blockers Recommend ARBs since patient had allergic reactions to Canelo I (7) Well controlled diabetes mellitus Status: Chronic Assessment & Plan: Her diabetes remains under fair control. Her hemoglobin A1c runs between 6.5 to 7% a. Obesity and insulin resistance b. Noncompliance with diet and medications c stress from acute VT, UTI Discussed with patient about all pertinent etiologic causes of uncontrolled NIDDM Full diabetic education is given to patient a, 1800-calorie ADA diet b. Combination of basal and short acting insulin therapy c. Intentional weight loss of 75 lbs is through diet and exercise d. Monitoring hemoglobin A1c,, CMP every 3 months lipid panel every 6 months 24-hour urine check for microalbuminuria on annual basis e. Recommended annual physical exam by dentist, family services coordinator and eye doctor f. Report to podiatry for any sign of inflammation or injury to foot (8) Morbid obesity in adult with current BMI >35-39 Kg/m Status: Chronic Assessment & Plan Her current BMI is high at 38 kg/m reflecting Her current body weight exceeds by 75 LBS to ideal body weight Informed patient about complications of obesity which includes but not limited to a. Hypoxia, cardiac arrhythmias, pulmonary embolism, embolic CVA, sudden cardiac The patient is recommended weight loss of 80 pounds through Low-carb low calorie 1800-calorie diet and aerobic exercises as tolerated Recommended patient to follow a. daily weight, b. ADA 1800-calorie diet-40% calories from breakfast 30% calories from lunch and dinner each, avoid carbonated soda c. Recommended aerobic exercises like walking 1-5 miles per day, riding on a stationary bike for 1-2 hours Treatment plans as of today Admit to telemetry floor Recommends sputum cultures Switch to IV Solu-Cortef Continue bronchodilators med neb treatments q.4 hours when awake Continue IV Rocephin Consider adding IV Zi Zithromax Recommend antiplatelet agent like Lovenox Reconcile home medications Obtain blood cultures PRN temp >101.5 Careful IV hydration Accu-Chek q.a.c. and HS Humalog sliding scale VTE the precautions Local application of Bactroban over bilateral upper extremity Patient education The patient and/or family is well informed by me about 1. Clinical impression, treatment plans, side effects of medications, course of the disease And guarded prognosis 2. All patient's and concerns raised by patient or family are satisfactorily addressed by me Prognosis Guarded Dietary Evaluation Review Recommendations by RD: Dietary education by RD, Decrease Calorie Intake, Protein Supplementation Comments: Morbidly obese-overweight of 100 lbs Expected Outcomes/Goals: Intentional weight loss of 5-6 lb per month for next 20-24 months Plan discussed with: Patient Total Time (mins): 60 SULY CARDOZO MD Oct 16, 2024 00:55
[2024-10-16] MEDS: VALSARTAN 80 MG TAB PO SCH (02:12)
[2024-10-16] MEDS: AZITHROMYCIN 500MG/ 250ML 250 ML IV SCH (10:46)
[2024-10-16 11:30] LABS: Hematocrit 35.3 % (36.0-46.0); Hemoglobin 11.2 g/dL (12.2-16.2); Mean Corpuscular Hemoglobin 24.0 pg (28.0-32.0); Mean Corpuscular Volume 75.6 fL (80.0-100.0); Nucleated Red Blood Cells % 0.1 %
[2024-10-16 11:41] LABS: Alanine Aminotransferase 10 U/L (7-40); Albumin 4.1 g/dL (3.2-4.8); Alkaline Phosphatase 102 U/L (46-116); Anion Gap 9 (5-15); BUN/Creatinine Ratio 29.6 (10.0-20.0); Blood Urea Nitrogen 21 mg/dL (9-23); Calcium 9.9 mg/dL (8.7-10.4); Carbon Dioxide 22 mmol/L (20-31); Potassium 4.7 mmol/L (3.5-5.1); Sodium 139 mmol/L (136-145); Total Protein 6.7 g/dL (5.7-8.2)
[2024-10-16 11:42] LABS: Bilirubin, Total 0.2 mg/dL (0.2-1.0); Chloride 108 mmol/L (98-107); Glucose 134 mg/dL (74-106)
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
[2024-10-17] VITALS (20 sets, daily range): BP systolic 135–157; BP diastolic 61–90; PULSE 55–83; RESP 16–20; TEMP 97.4–98.6; O2SAT 97–100
[2024-10-17] MEDS ORDERED: HYDROCORTISONE SOD SUCC 100 MG/2ML INJ VIAL IV SCH (21:00)
[2024-10-17] MEDS ORDERED: HYDROmorphone HCL 2 MG/ML VL/or syr IV PRN (21:00)
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
[2024-10-17] MEDS: HYDROCORTISONE SOD SUCC 100 MG/2ML INJ VIAL IV SCH (23:16)
[2024-10-18] VITALS (20 sets, daily range): BP systolic 151–174; BP diastolic 79–94; PULSE 53–79; RESP 16–20; TEMP 97.8–98.4; O2SAT 96–100
[2024-10-18] MEDS: HYDROmorphone HCL 2 MG/ML VL/or syr IV PRN (03:36)
--- NOTE | 2024-10-18 09:04 | DVH ---
CLINICAL INDICATION: Rotator cuff injury TECHNIQUE: XY L SHOULDER 2+ VIEW XRAY Comparison: XY R SHOULDER 2+ VIEW XRAY on DOS: 07/06/24, XY L SHOULDER 2+ VIEW XRAY on DOS: 05/15/23, X Y L SHOULDER 2+ VIEW XRAY on DOS: 01/31/23, XY L SHOULDER 2+ VIEW XRAY on DOS: 01/31/23, XY L SHOULDER 2+ VIEW XRAY on DOS: 01/31/23 FINDINGS/IMPRESSION: : There is no evidence of acute fracture or dislocation. Soft tissues are unremarkable. Diffuse degenerative changes.
[2024-10-18] MEDS: OXYBUTYNIN CHL 5 MG TAB PO ONE (18:34)
[2024-10-18] MEDS ORDERED: HYDROmorphone HCL 2 MG/ML VL/or syr IV PRN ×2 (19:30)
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
[2024-10-19] VITALS (13 sets, daily range): BP systolic 136–182; BP diastolic 63–98; PULSE 52–80; RESP 14–18; TEMP 36.7; O2SAT 55–100
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
[2024-10-19] MEDS ORDERED: PRED20TA2 PO (07:32)
[2024-10-19] MEDS ORDERED: CEFU500T43 PO (07:32)
[2024-10-19] MEDS: KETOROLAC TROMETH 30 MG/ML 1ML VIAL IV ONE (09:43)
[2024-10-19] MEDS: HYDROCORTISONE SOD SUCC 100 MG/2ML INJ VIAL IV SCH (09:44)
== END 2024-10-19 13:39 | disposition home or self-care (01) | DRG 191 ==
LOC: ER 00:42 → EDBD 00:42 → OVERFLOW 04:15 → ER 04:28 → TELE-WESTW 05:40
PROVIDERS: ADMIT Specialist; ATTEND Specialist
DX: J44.1 Chronic obstructive pulmonary disease with (acute) exacerbation (principal); E66.2 Morbid (severe) obesity with alveolar hypoventilation; M79.7 Fibromyalgia; I10 Essential (primary) hypertension; F31.9 Bipolar disorder, unspecified; E11.9 Type 2 diabetes mellitus without complications; E86.1 Hypovolemia; E78.00 Pure hypercholesterolemia, unspecified; K21.9 Gastro-esophageal reflux disease without esophagitis; I25.10 Atherosclerotic heart disease of native coronary artery without angina pectoris; E88.819 Insulin resistance, unspecified; J06.9 Acute upper respiratory infection, unspecified; S13.4XXA Sprain of ligaments of cervical spine, initial encounter; Z96.641 Presence of right artificial hip joint; Z77.22 Contact with and (suspected) exposure to environmental tobacco smoke (acute) (chronic); I25.2 Old myocardial infarction; Z68.38 Body mass index [BMI] 38.0-38.9, adult; Z83.3 Family history of diabetes mellitus; Z91.148 Patient's other noncompliance with medication regimen for other reason; Z91.119 Patient's noncompliance with dietary regimen due to unspecified reason; Z90.710 Acquired absence of both cervix and uterus; Z87.891 Personal history of nicotine dependence; Z87.440 Personal history of urinary (tract) infections; Z86.73 Personal history of transient ischemic attack (TIA), and cerebral infarction without residual deficits; Z79.899 Other long term (current) drug therapy; Z79.84 Long term (current) use of oral hypoglycemic drugs; Z82.49 Family history of ischemic heart disease and other diseases of the circulatory system; Z80.9 Family history of malignant neoplasm, unspecified; Z88.8 Allergy status to other drugs, medicaments and biological substances; Z95.5 Presence of coronary angioplasty implant and graft; Y93.89 Activity, other specified; Y92.89 Other specified places as the place of occurrence of the external cause; Y99.8 Other external cause status; V49.9XXA Car occupant (driver) (passenger) injured in unspecified traffic accident, initial encounter
CPT/HCPCS: 36415; 70450; 71045; 73030; 80048; 80053; 82962; 83036; 83735; 83880; 84100; 84484; 85025; 87070; 87205; 94640; 97163; G0378; J1100; J1815; J1885

== ENCOUNTER 2024-12-30 06:06 | Inpatient (IN) | payer MEDICARE, MEDICAID ==
[~2024-12-30] VITALS: Ht 167.6 cm; Wt 105.1 kg
[~2024-12-30 06:06] MED LIST changes: +CEFU500T43 PO; +PRED20TA2 PO
[2024-12-30 06:34] VITALS: PULSE 81; RESP 19; O2SAT 97
--- NOTE | 2024-12-30 07:08 | ED.PDOC ---
HPI Comments This is a 64 year old female ANGIE presenting to the ED with chief complaint of chest pain. Patient reports that she has been experiencing left sided chest pain that radiates to her left arm for the past 2 hours. Patient requests to see her doctor, Dr. Charles. Patient denies any SOB, dizziness, headache, N/V, or abdominal pain. Chief Complaint: Chest Pain Time Seen by MD: 07:07 Primary Care Provider: vasu Reviewed Notes: Nurses Notes, Fish Hatchery Assistant Notes, Medications, Allergies Allergies: Coded Allergies: Benzalkonium Chloride (Verified Allergy, Unknown, 07/08/18) Dupilumab (Verified Allergy, Unknown, 05/30/24) Lisinopril (Verified Allergy, Unknown, 07/08/18) Sorbitan (Verified Allergy, Unknown, 05/30/24) Dexamethasone (Verified Adverse Reaction, Intermediate, burning feeling in veins, 10/15/24) Home Meds Active Scripts Prednisone (Prednisone) 20 Mg Tab, 10 MG PO BID for 10 Days, MG Prov:SULY CHARLES MD 10/19/24 Cefuroxime Axetil (Cefuroxime Axetil) 500 Mg Tab, 1 TAB PO BID, #10 TAB Prov:SULY CHARLES MD 10/19/24 Valsartan (Valsartan) 80 Mg Tab, 160 MG PO DAILY for 90 Days, #180 TAB Prov:SULY CHARLES MD 07/14/24 Betamethasone Dipropionate (Betamethasone Dipropionat) 0.05 % Cre, 1 APPLIC TOP DAILY for 30 Days, #60 GM Prov:SULY CHARLES MD 07/13/24 Albuterol Sulfate (Ventolin) 2.5 Mg/0.5 Ml Nb, 2.5 MG NEB Q4HPRN PRN for 50 Days, #100 ML 1 Refill Prov:SULY CHARLES MD 01/20/22 Reported Medications Multiple Vitamin (Multivitamins) Tab, 1 TAB PO DAILY, #90 TAB 3 Refills 05/29/24 Celecoxib (Celebrex) 200 Mg Cap, 200 MG PO HS, CAP 05/29/24 Betamethasone Dipropionate (Betamethasone Dipropionat) 0.05 % Oin, 1 APPLIC TD BID 05/29/24 Duloxetine HCl (Duloxetine HCl) 30 Mg Cap, 30 MG PO DAILY 05/29/24 Tizanidine Hydrochloride (Tizanidine Hcl) 4 Mg Tab, 4 MG PO BID 05/29/24 Oxybutynin Chloride (Oxybutynin Chloride) 5 Mg Tab, 10 MG PO DAILY 05/29/24 Oxycodone HCl (Oxycodone Hydrochloride) 20 Mg Tab, 20 MG PO Q8HPRN PRN for PAIN SCALE 7 THRU 10 05/29/24 Valsartan-Hydrochlorothiazide (Diovan Hct) 160 /12.5 Tab, 1 TAB PO DAILY 05/15/23 Aripiprazole (Aripiprazole) 10 Mg Tab, 1 TAB PO DAILY 05/15/23 Metformin Hydrochloride (Metformin Hcl Er) 750 Mg Tab, 1 TAB PO DAILY, #90 TAB 3 Refills 05/12/23 Rosuvastatin Calcium (Crestor) 20 Mg Tab, 1 TAB PO DAILY for LOWER BAD CHOLEST IVÁN, #30 TAB 5 Refills 04/03/22 Pantoprazole Sodium Sesquihydr (Pantoprazole Sodium) 40 Mg Tab, 40 MG PO QAM for GERD, TAB PRIOR TO BREAKFAST PER PT SHOULD STILL BE ON THIS MEDICATION EVEN THOUGH NO P/UP HISTORY IN EXTERNAL MED 11/21/21 Empagliflozin (Jardiance) 10 Mg Tab, 10 MG PO DAILY for DIABETES, TAB 11/21/21 Escitalopram Oxalate (ESCITALOPRAM OXALATE) 20 Mg Tab, 1 TAB PO DAILY for DEPRESSION, #30 TAB 5 Refills 11/21/21 Metoprolol Succinate (Metoprolol Succinate Er) 50 Mg Tab, 50 MG PO DAILY for BLOOD PRESSURE NEW DISCHARGE MED IS METOPROLOL SUCC ER 25 MG BID, BUT PATIENT HAS NOT STARTED TAKING YET AND WOULD LIKE TO BE KEPT ON 50 MG DAILY 07/12/20 Mupirocin Calcium (Topical) (MUPIROCIN) 2 % Cre, 1 APPLIC TOP BID for Skin infection PER PATIENT'S HOME MED LIST: APPLY TOPICALLY TO OPEN WOUNDS BID PT USES 2 GRAMS BID 01/18/20 Docusate Sodium (DOCQLACE) 100 Mg Cap, 100 MG PO DAILY PRN for FOR CONSTIPATION, CAP 06/04/18 Albuterol Sulfate (VENTOLIN MDI) 90 Mcg Ih, 2 PUFF IN Q6HPRN PRN for SHORTNESS OF BREATH EXTERNAL MED HX SAYS Q4HR. 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: No Pertinent PACKING AND FINAL ASSEMBLY SUPERVISOR History Family History Family History: Reviewed,noncontributory to illness Social History Smoker: Non-Smoker Alcohol: Denies ETOH Use Drugs: Denies Drug Use Lives In: Home Constitutional: denies: chills, diaphoresis, fatigue, fever, malaise, sweats, weakness, others EENTM: denies: blurred vision, double vision, ear bleeding, ear discharge, ear drainage, ear pain, ear ringing, eye pain, eye redness, hearing loss, mouth pain, mouth swelling, nasal discharge, nose bleeding, nose congestion, nose pain, photophobia, tearing, throat pain, throat swelling, voice changes, others Respiratory: denies: cough, hemoptysis, orthopnea, SOB at rest, shortness of breath, SOB with excertion, stridor, wheezing, others Cardiovascular: reports: chest pain; denies: dizzy spells, diaphoresis, Dyspnea on exertion, edema, irregular heart beat, left arm pain, lightheadedness, palpitations, PND, syncope, others Gastrointestinal: denies: abdomen distended, abdominal pain, blood streaked bowels, constipated, diarrhea, dysphagia, difficulty swallowing, hematemesis, melena, nausea, poor appetite, poor fluid intake, rectal bleeding, rectal pain, vomiting, others Genitourinary: denies: abnormal vagina bleeding, burning, dyspareunia, dysuria, flank pain, frequency, hematuria, incontinence, pain, , vagina discharge, urgency, others Neurological: denies: dizziness, fainting, headache, left sided numbness, left sided weakness, numbness, paresthesia, pre-existing deficit, right sided numbness, right sided weakness, seizure, speech problems, tingling, tremors, weakness, others Musculoskeletal: denies: back pain, gout, joint pain, joint swelling, muscle pain, muscle stiffness, neck pain, others Integumetry: denies: bruises, change in color, change in hair/nails, dryness, laceration, lesions, lumps, rash, wounds, others Allergic/Immunocompromised: denies: Difficulty Healing, Frequent Infections, Hives, Itching, others Hematologic/Lymphatic: denies: anemia, blood clots, easy bleeding, easy bruising, swollen glands, others Endocrine: denies: excessive hunger, excessive sweating, excessive thirst, excessive urination, flushing, intolerance to cold, intolerance to heat, unexplained weight gain, unexplained weight loss, others Psychiatric: denies: anxiety, bipolar disorder, depression, hopeless, panic disorder, schizophrenia, sleepless, suicidal, others All Other Systems: Reviewed and Negative Physical Exam General Appearance: No Apparent Distress, Normal HEENT: Normal ENT Inspection, Pharynx Normal, TMs Normal Neck: Full Range of Motion, Non-Tender, Normal, Normal Inspection Respiratory: Chest Non-Tender, Lungs Clear, No Accessory Muscle Use, No Respiratory Distress, Normal Breath Sounds Cardiovascular: No Edema, No JVD, No Murmur, No Gallop, Normal Peripheral Pulses, Regular Rate/Rhythm Breast Exam: Deferred Gastrointestinal: No Organomegaly, Non Tender, No Pulsatile Mass, Normal Bowel Sounds, Soft Genitalia: Deferred Pelvic: Deferred Rectal: Deferred Extremities: No calf tenderness, Normal capillary refill, Normal inspection, Normal range of motion, Non-tender, No pedal edema Musculoskeletal : Apperance: Normal Neurologic: Alert, litigation counsel II-XII nml as Tested, No Motor Deficits, Normal Affect, Normal Mood, No Sensory Deficits Cerebellar Function: Normal Reflexes: Normal Skin: Dry, Normal Color, Warm Lymphatic: No Adenopathy Was a procedure done? Was a procedure done?: No CP Differential Dx Differential Diagnosis: AK, PAC's Differential Diagnosis: HTN Essential, HTN Accelerated Differential Diagnosis: Gastritis, Myocardial Infarction X-Ray, Labs, Meds, VS Vital Signs Date Time Temp Pulse Resp B/P (MAP) Pulse Ox O2 Delivery O2 Flow Rate FiO2 12/30/24 07:02 67 12/30/24 06:34 81 19 97 Room Air* 0 21 12/30/24 06:33 98.0 81 19 136/44 (74) 97 98.0 12/30/24 06:12 76 12/30/24 06:10 98.2 92 18 149/87 99 98.2 Lab Test 12/30/24 06:38 12/30/24 06:35 Range/Units Sodium Level 143 136-145 mmol/L Potassium Level 3.8 3.5-5.1 mmol/L Chloride Level 109 H 98-107 mmol/L Carbon Dioxide Level 22 20-31 mmol/L Anion Gap 12 5-15 Blood Urea Nitrogen 10 9-23 mg/dL Creatinine 0.67 0.550-1.02 mg/dL Glomerular Filtration Rate Calc 96 >90 mL/min BUN/Creatinine Ratio 14.9 10.0-20.0 Serum Glucose 125 H 74-106 mg/dL Calcium Level 9.0 8.7-10.4 mg/dL Total Bilirubin 0.2 0.2-1.0 mg/dL Aspartate Amino Transferase (AST) 13 13-40 U/L Alanine Aminotransferase (ALT) 11 7-40 U/L Alkaline Phosphatase 117 H 46-116 U/L Troponin I High Sensitivity 29 </=34 ng/L Total Protein 7.2 5.7-8.2 g/dL Albumin 4.2 3.2-4.8 g/dL White Blood Count 5.9 4.4-10.8 10^3/uL Red Blood Count 4.73 4.0-5.20 10^6/uL Hemoglobin 11.5 L 12.2-16.2 g/dL Hematocrit 36.8 36.0-46.0 % Mean Corpuscular Volume 77.8 L 80.0-100.0 fL Mean Corpuscular Hemoglobin 24.3 L 28.0-32.0 pg Mean Corpuscular Hemoglobin Concent 31.3 L 32.0-36.0 g/dL Red Cell Distribution Width 16.7 H 11.8-14.3 % Platelet Count 288 140-450 10^3/uL Mean Platelet Volume 7.9 6.9-10.8 fL Neutrophils (%) (Auto) 44.0 37.0-80.0 % Lymphocytes (%) (Auto) 35.3 10.0-50.0 % Monocytes (%) (Auto) 13.6 H 0.0-12.0 % Eosinophils (%) (Auto) 6.2 0.0-7.0 % Basophils (%) (Auto) 0.9 0.0-2.0 % Neutrophils # (Auto) 2.6 1.6-8.6 10 ^3/uL Lymphocytes # (Auto) 2.1 0.4-5.4 10 ^3/uL Monocytes # (Auto) 0.8 0-1.3 10 ^3/uL Eosinophils # (Auto) 0.4 0-0.8 10 ^3/uL Basophils # (Auto) 0.1 0-0.2 10 ^3/uL Nucleated Red Blood Cells 0.1 % Time of 1ST Reevaluation: 08:06 Reevaluation 1ST: Unchanged Patient Education/Counseling: Diagnosis, Treatment Family Education/Counseling: No Family Present SEPSIS Sepsis Screen Date sepsis recognized/suspect: Dec 30, 2024 Time Sepsis recognized/suspect: 618 Recent Procedure: No On Antibiotic Therapy: No Respiratory Rate >20: No Heart Rate >90: No Temp<36 C (96.8 F) or >38.3 C: No SBP <90 or MAP <65 mmHG: No New Acute Mental Status Change: No Is the patient on CPAP, BIPAP,: No Physician Orders Electrocardigram (12/30/24 06:16) Electrocardigram (12/30/24 07:16) Electrocardigram (12/30/24 09:16) Chest Portable (12/30/24 06:45) Vital Signs Date Time Temp Pulse Resp B/P (MAP) Pulse Ox O2 Delivery O2 Flow Rate FiO2 12/30/24 07:02 67 12/30/24 06:34 81 19 97 Room Air* 0 21 12/30/24 06:33 98.0 81 19 136/44 (74) 97 98.0 12/30/24 06:12 76 12/30/24 06:10 98.2 92 18 149/87 99 98.2 Laboratory Tests Test 12/30/24 06:35 White Blood Count 5.9 10^3/uL (4.4-10.8) Departure 1 Departure Time of Disposition: 04:42 (Patient presented with chest pain that was concerning for possible STEMI, ACS, PE, Pneumonia, Muscle Strain, COPD, Dissection. Data: 1. I ordered and reviewed the result of at least 3 labs including a CBC, BMP, and Troponin. 2. I independently interpreted the following tests: EKG which shows sinus arrhythmia and Chest X-ray which shows benign chest.Risk:This patient has a high risk of morbidity due to further diagnostic testing or treatment and may suffer from an acute cardiac or respiratory disorder. Workup reveals concern for ACS and patient should be admitted for further workup and possible expert consultation. ) Impression: Primary Impression: Acute chest pain Disposition: ADMITTED INPATIENT Admit to: Tele Condition: Guarded Critical Care Note Critical Care Time?: Yes Critical care comment: Acute chest pain Authorized and Performed by: William Lai MD Total critical care time: Approximately 39 minutes Due to a high probability of clinically significant, life threatening deterioration, the patient required my highest level of preparedness to intervene emergently and I personally spent this critical care time directly and personally managing the patient. This critical care time included obtaining a history; examining the patient; pulse oximetry; ordering and review of studies; arranging urgent treatment with development of a management plan; evaluation of patient's response to treatment; frequent reassessment; and, discussions with other providers. This critical care time was performed to assess and manage the high probability of imminent, life-threatening deterioration that could result in multi-organ failure. It was exclusive of separately billable procedures and treating other patients and teaching time. Please see my other sections and the rest of the note for further information on patient assessment and treatment. Stability Stability form required: No Heart Score Heart Score: Heart Score Response (Comments) Value History Moderate Suspicious 1 EKG Normal 0 Age >65 2 Risk Factors >3 or Hx ASHD 2 Troponin 1-2 x's Normal limit 1 Total 6 I personally scribed for WILLIAM LAI MD ([email or web address]) on 12/30/24 at 07:08. Electronically submitted by Ralph Joseph ([email or web address]). WILLIAM LAI MD Dec 30, 2024 07:08
[2024-12-30] MEDS ORDERED: ALBUTEROL SULF HFA 90MCG INH 200DOSE IN PRN (07:30)
[2024-12-30] MEDS ORDERED: MORPHINE SULFATE INJ 2 MG/ml SYRG IV PRN (07:30)
[2024-12-30] MEDS ORDERED: NITROGLYCERIN 0.4 MG SL TAB SL PRN (07:30)
[2024-12-30 07:37] LABS: Hemoglobin 11.5 g/dL (12.2-16.2)
[2024-12-30 07:39] LABS: Hematocrit 36.8 % (36.0-46.0); Mean Corpuscular Hemoglobin 24.3 pg (28.0-32.0); Mean Corpuscular Volume 77.8 fL (80.0-100.0); Nucleated Red Blood Cells % 0.1 %
[2024-12-30 07:43] LABS: Alanine Aminotransferase 11 U/L (7-40); Albumin 4.2 g/dL (3.2-4.8); Anion Gap 12 (5-15); BUN/Creatinine Ratio 14.9 (10.0-20.0); Blood Urea Nitrogen 10 mg/dL (9-23); Calcium 9.0 mg/dL (8.7-10.4); Carbon Dioxide 22 mmol/L (20-31); Potassium 3.8 mmol/L (3.5-5.1); Sodium 143 mmol/L (136-145); Total Protein 7.2 g/dL (5.7-8.2)
[2024-12-30 07:44] LABS: Alkaline Phosphatase 117 U/L (46-116); Bilirubin, Total 0.2 mg/dL (0.2-1.0); Chloride 109 mmol/L (98-107); Glucose 125 mg/dL (74-106)
--- NOTE | 2024-12-30 07:46 | DVH ---
INDICATION: chest pain TECHNIQUE: Single frontal view of the chest was obtained COMPARISON: XY CHEST XRAY 1 VIEW on DOS: 10/15/24, XY CHEST PORTABLE on DOS: 10/14/24, XY CHEST TWO VIE WS ROUTINE on DOS: 07/30/24, XY CHEST PORTABLE on DOS: 06/10/24, XY CHEST TWO VIEWS ROUTINE on DOS: , XY CHEST PORTABLE on DOS: 10/14/24 FINDINGS: Lines and Tubes: None Lungs: Moderate diffuse increased prominence of the pulmonary vasculature. No evidence of focal cons olidation. Pleura: No effusion. No pneumothorax. Cardiomediastinal contours: Cardiomegaly. Bones: Unremarkable IMPRESSION: 1. Cardiomegaly and moderate diffuse increased prominence of the pulmonary vasculature.
[2024-12-30] MEDS: ONDANSETRON HCL 4 MG/2 ML VIAL IV ONE (07:47)
[2024-12-30] MEDS: MORPHINE SULFATE 4 MG/ML SYR/VIAL IV ONE (07:48)
[2024-12-30 07:50] VITALS: BP 159/86; PULSE 76; RESP 20; TEMP 98; O2SAT 100; O2SAT 76
--- NOTE | 2024-12-30 07:56 | DVHHP2 ---
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 Upon received phone call from patient's , I refer patient to ER of this facility and discussed case with ER physician Onset/duration: x 2 hours-worse this morning Severity: 5-7/10 Location: Left Anterior chest wall pains Characteristic: Pleuritic to pressure-like chest tightness, wheezing Referral: LUE Associated symptoms: Chest congestion shortness of breath wheezing Aggravated by: Deep inspiration, cough #1, Alleviated by: Bronchodilator Med-Neb treatment Risk factors: NIDDM, hypertension, CAD COPD, obesity Upon arrival to ER, she appeared to be hypertensive, tachypneic and hypovolemic Her 12-lead EKG was remarkable for ASMI however her troponins were reported to be elevated. Given cardiopulmonary risk factors, I recommended her to receive hospitalization.. Following to my case discussion with ERP, I admitted patient to medical floor with telemetry Past Medical History Past medical history records: Reviewed Cardiovascular history: Long history of hypertension complicated by hypertensive CAD Suffered acute NE and noted to have occlusive disease of RCA requiring PTCA followed by stent placement in the year 2007 Patient suffers chronic stable angina requiring multiple hospitalization She received multiple stress EKG test and angiographic study including last one in November 2021 Respiratory history: COPD, obesity hypoventilation syndrome Gastrointestinal history: GE reflux Genitourinary history: Recurrent UTI over the past 12 months Endocrine history: Fairly well-controlled NIDDM-hemoglobin A1c stays under 6.5% to 7% Currently on metformin Exogenous obesity-BMI 41 kg/m, verbally counseled to lose weight of 100 pounds through diet and exercise Hypercholesterolemia currently on Lipitor-and Ecotrin Neurology history: History of CVA with no residual focal deficit Musculoskeletal history: Severe osteoarthritis affecting hip and knees-followed by Dr. 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 History of smoking: Cigarettes: Never-admits to have exposure to the passive smoking History of smoking E cigarettes: Denies History of smoking marijuana: Denies History of drinking alcohol: Denies History of substance abuse: Denies Patient Family History: Cardiovascular disease G8 FATHER, Onset: - Diabetes mellitus FHx: cancer G8 MOTHER, Onset: Hypertension G8 MOTHER, Onset: G8 FATHER, Onset: Allergies: Coded Allergies: Benzalkonium Chloride (Verified Allergy, Unknown, 07/08/18) Dupilumab (Verified Allergy, Unknown, 05/30/24) Lisinopril (Verified Allergy, Unknown, 07/08/18) Sorbitan (Verified Allergy, Unknown, 05/30/24) Dexamethasone (Verified Adverse Reaction, Intermediate, burning feeling in veins, 10/15/24) Home Meds Active Scripts Prednisone (Prednisone) 20 Mg Tab, 10 MG PO BID for 10 Days, MG Prov:SULY CARDOZO MD 10/19/24 Cefuroxime Axetil (Cefuroxime Axetil) 500 Mg Tab, 1 TAB PO BID, #10 TAB Prov:SULY CARDOZO MD 10/19/24 Valsartan (Valsartan) 80 Mg Tab, 160 MG PO DAILY for 90 Days, #180 TAB Prov:SULY CARDOZO MD 07/14/24 Betamethasone Dipropionate (Betamethasone Dipropionat) 0.05 % Cre, 1 APPLIC TOP DAILY for 30 Days, #60 GM Prov:SULY CARDOZO MD 07/13/24 Albuterol Sulfate (Ventolin) 2.5 Mg/0.5 Ml Nb, 2.5 MG NEB Q4HPRN PRN for 50 Days, #100 ML 1 Refill Prov:SULY CARDOZO MD 01/20/22 Reported Medications Multiple Vitamin (Multivitamins) Tab, 1 TAB PO DAILY, #90 TAB 3 Refills 05/29/24 Celecoxib (Celebrex) 200 Mg Cap, 200 MG PO HS, CAP 05/29/24 Betamethasone Dipropionate (Betamethasone Dipropionat) 0.05 % Oin, 1 APPLIC TD BID 05/29/24 Duloxetine HCl (Duloxetine HCl) 30 Mg Cap, 30 MG PO DAILY 05/29/24 Tizanidine Hydrochloride (Tizanidine Hcl) 4 Mg Tab, 4 MG PO BID 05/29/24 Oxybutynin Chloride (Oxybutynin Chloride) 5 Mg Tab, 10 MG PO DAILY 05/29/24 Oxycodone HCl (Oxycodone Hydrochloride) 20 Mg Tab, 20 MG PO Q8HPRN PRN for PAIN SCALE 7 THRU 10 05/29/24 Valsartan-Hydrochlorothiazide (Diovan Hct) 160 /12.5 Tab, 1 TAB PO DAILY 05/15/23 Aripiprazole (Aripiprazole) 10 Mg Tab, 1 TAB PO DAILY 05/15/23 Metformin Hydrochloride (Metformin Hcl Er) 750 Mg Tab, 1 TAB PO DAILY, #90 TAB 3 Refills 05/12/23 Rosuvastatin Calcium (Crestor) 20 Mg Tab, 1 TAB PO DAILY for LOWER BAD CHOLESTEROL, #30 TAB 5 Refills 04/03/22 Pantoprazole Sodium Sesquihydr (Pantoprazole Sodium) 40 Mg Tab, 40 MG PO QAM for GERD, TAB PRIOR TO BREAKFAST PER PT SHOULD STILL BE ON THIS MEDICATION EVEN THOUGH NO P/UP HISTORY IN EXTERNAL MED 11/21/21 Empagliflozin (Jardiance) 10 Mg Tab, 10 MG PO DAILY for DIABETES, TAB 11/21/21 Escitalopram Oxalate (ESCITALOPRAM OXALATE) 20 Mg Tab, 1 TAB PO DAILY for DEPRESSION, #30 TAB 5 Refills 11/21/21 Metoprolol Succinate (Metoprolol Succinate Er) 50 Mg Tab, 50 MG PO DAILY for BLOOD PRESSURE NEW DISCHARGE MED IS METOPROLOL SUCC ER 25 MG BID, BUT PATIENT HAS NOT STARTED TAKING YET AND WOULD LIKE TO BE KEPT ON 50 MG DAILY 07/12/20 Mupirocin Calcium (Topical) (MUPIROCIN) 2 % Cre, 1 APPLIC TOP BID for Skin infection PER PATIENT'S HOME MED LIST: APPLY TOPICALLY TO OPEN WOUNDS BID PT USES 2 GRAMS BID 01/18/20 Docusate Sodium (DOCQLACE) 100 Mg Cap, 100 MG PO DAILY PRN for FOR CONSTIPATION, CAP 06/04/18 Albuterol Sulfate (VENTOLIN MDI) 90 Mcg Ih, 2 PUFF IN Q6HPRN PRN for SHORTNESS OF BREATH EXTERNAL MED HX SAYS Q4HR. PATIENT USES Q6HR PRN 06/04/18 Clopidogrel Bisulfate (CLOPIDOGREL) 75 Mg Tab, 75 MG PO DAILY 06/04/18 Current Medications Current Medications Medications (Trade) Dose Ordered Sig/Kitty Route PRN Reason Start Time Stop Time Status Last Admin Pantoprazole Sodium (Protonix Tablet) 40 mg QAM PO 12/31/24 07:00 12/31/24 05:44 Citalopram Hydrobromide (CeleXA TABLET) 20 mg DAILY PO 12/31/24 10:00 Patient Own Medication 10 DAILY PO 12/31/24 10:00 12/31/24 10:29 Clopidogrel Bisulfate (Plavix) 75 mg DAILY PO 12/31/24 14:00 12/31/24 14:00 Patient Own Medication 10 mg DAILY PO 12/31/24 10:00 12/30/24 17:07 DC Patient Own Medication 20 mg DAILY PO 12/31/24 10:00 12/30/24 17:09 DC Review of Systems Constitutional: Reports generalized weakness, low-grade fever, chills, denies weight loss HEENT: Denies headache, nasal/maxillary sinus congestion, rhinorrhea, lacrimation Denies conjunctival pains, denies hearing or visual deficits NECK: No symptoms of neck pains or stiffness CHEST: Denies cough congestion, shortness of breath costochondral tenderness, RS: Reports cough, chest congestion, wheezing, shortness of breath, pleurisy CVS: Reports angina, shortness of breath, denies palpitation, : Reports heartburn, GE reflux, abdominal pains, N/ V/D, melena : Denies symptoms of frequency, urgency, dysuria, hematuria BACK: Reports chronic back pains, radicular pains MS: Reports generalized aches and pains from fibromyalgia SKIN: Multiple scabbed wounds of upper and lower extremities EXTs: Multiple scabbed wounds no edema, no rash, no open wounds 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 mental status, focal deficits, no GTC seizures, weakness PSYCH: bipolar disorder -denies suicidal thoughts ENDO: Denies excessive thirst or urination, denies intolerance to cold or heat HEM/ONC: No symptoms of anemia, leukemia or multiple myeloma ALLERGY no symptoms of allergy Vital Signs Vital Signs Date Time Temp Pulse Resp B/P (MAP) Pulse Ox O2 Delivery O2 Flow Rate FiO2 12/31/24 21:01 98.0 59 18 155/87 (109) 96 98.0 12/31/24 19:17 Room Air 12/31/24 19:17 0 21 21 Physical Exam Excuse me Vital Signs Date Time Temp Pulse Resp B/P (MAP) Pulse Ox O2 Delivery O2 Flow Rate FiO2 12/30/24 06:34 81 19 97 Room Air* 0 21 12/30/24 06:33 98.0 81 19 136/44 (74) 97 98.0 12/30/24 06:12 76 12/30/24 06:10 98.2 92 18 149/87 99 98.2 General appearance: Well-developed, morbidly obese middle-aged AA female Appears in discomfort due to chest pains, SOB Head: Normocephalic nontraumatic Eyes: EOMI, AMBAR, sclera nonicteric, conjunctive- pale ENT: Mild bilateral nasal congestion, bilateral TM mildly hyperemic NSL bilateral symmetrical, oral mucosa dry +2 Neck: Supple, carotid upstroke +2, trachea R off midline, JVD 1 cm No stridor, no goiter, no thyroid or lymph node enlargement No use of accessory muscles Chest: Emphysema, Bilateral symmetrical expansions of anterior wall, Costochondral tenderness at 6, 7, 8 ICS Breasts: I exam - Bilateral symmetrical, Lungs: clear breath sounds all over except reduced at bases A few late inspiratory rales at L lower base present CVS: PMI- 1 cm lateral to L MCL in fifth ICS , S1- S2 NSR no S3 GI: Abdomen soft, obese, bowel sounds normoactive No focal tenderness, no rebound tenderness No hepatosplenomegaly, no mass no hernia , : No CVA tenderness, no bladder mass palpable, genitalia-NE SKIN: Turgor -dry, color pale, no rash, no icterus, Multiple scar of scabbed lesions No varicosity EXTs: No edema, color pink, no rash, no ecchy mosis distal pulses +2 capillary refill <2 seconds, Scars of well healed scabbed lesions JOINTS; reduced range of motion BACK: No apparent lumbosacral spinal muscle tenderness, LYMPH NODES: No cervical, axillary or inguinal lymph nodes Neuro: Awake alert oriented 4, coherent, all cognitives- intact No pronator drift, no focal motor deficit, Changes of DPN, DTR +2, gait steady PSYCH: Affect mildly depressed-denies suicidal ideation SEPSIS Sepsis Screen Date sepsis recognized/suspect: Dec 30, 2024 Time Sepsis recognized/suspect: 618 Recent Procedure: No On Antibiotic Therapy: No Respiratory Rate >20: No Heart Rate >90: No Temp<36 C (96.8 F) or >38.3 C: No SBP <90 or MAP <65 mmHG: No New Acute Mental Status Change: No Is the patient on CPAP, BIPAP,: No Physician Orders Electrocardigram (12/30/24 09:16) Chest Portable (12/30/24 06:45) Admit (12/30/24 07:20) Nitroglycerin Sublingual (Ntrostat Subli (12/30/24 07:30) Morphine Sulfate Injection (12/30/24 07:30) Stat Ekg For Chest Pain (12/30/24 07:20) Notify Md Of Changes From Base (12/30/24 07:20) Hull Drafter For 24 Hours (12/30/24 07:20) Emergency Dysrhythmia Protocol (12/30/24 07:20) Rhythm Strips Once Every Shift (12/30/24 07:20) Oxygen By Nasal Cannula (12/30/24 07:20) Albuterol Medneb (Ventolin Medneb) (12/30/24 07:30) Betamethasone 0.05% Topical Cr (Diproson (12/30/24 10:00) Docusate Sodium Capsule (Colace Capsule) (12/30/24 07:30) Duloxetine Hcl Capsule (Cymbalta Capsule (12/30/24 10:00) Empagliflozin (Jardiance) (12/30/24 10:00) Metoprolol Xl Succinate (Toprol Xl) (12/30/24 10:00) Multiple Vitamin Tablet (Mvi Tab) (12/30/24 10:00) Oxybutynin Chloride Tablet (Ditropan Tab (12/30/24 10:00) Pantoprazole Tablet (Protonix Tablet) (12/31/24 07:00) Valsartan (Diovan) (12/30/24 10:00) Hydrocortisone Succinate Inj (Solu-Caleb (12/30/24 12:00) Ketorolac Injection (Toradol Injection) (12/30/24 14:00) Accucheck (12/30/24 11:30) Accucheck (12/30/24 17:00) Accucheck (12/30/24 22:00) Accucheck (12/31/24 07:00) Accucheck (12/31/24 11:30) Accucheck (12/31/24 17:00) Accucheck (12/31/24 22:00) Accucheck (01/01/25 07:00) Accucheck (01/01/25 11:30) Accucheck (01/01/25 17:00) Accucheck (01/01/25 22:00) Accucheck (01/02/25 07:00) Accucheck (01/02/2530) Accucheck (01/02/25 17:00) Accucheck (01/02/25 22:00) Accucheck (01/03/25 07:00) Accucheck (01/03/25:30) Accucheck (01/03/25 17:00) Accucheck (01/03/25 22:00) Accucheck (01/04/25 07:00) Accucheck (01/04/25 11:30) Accucheck (01/04/25 17:00) Accucheck (01/04/25 22:00) Accucheck (01/05/25 07:00) Accucheck (01/05/25 11:30) Accucheck (01/05/25 17:00) Accucheck (01/05/25 22:00) Accucheck (01/06/25 07:00) Accucheck (01/06/25 11:30) Accucheck (01/06/25 17:00) Accucheck (01/06/25 22:00) Insulin Lispro (Human) (Humalog) (12/30/24 11:30) Insulin Lispro (Human) (Humalog) (12/30/24 22:00) Hydromorphone Injection (Dilaudid Inject (12/30/24 07:45) Ceftriaxone 1gm/50ml (Rocephin) (12/30/24 10:00) Gabapentin Capsule (Neurontin Capsule) (12/30/24 22:00) Patients Own Medication (12/31/24 10:00) Citalopram Tablet (Celexa Tablet) (12/31/24 10:00) Clopidogrel Bisulfate (Plavix) (12/31/24 14:00) Enoxaparin Sodium (Lovenox) (12/30/24 22:00) Consistent Carb(Ccho)Diabetes (12/30/24 Dinner) Vital Signs Date Time Temp Pulse Resp B/P (MAP) Pulse Ox O2 Delivery O2 Flow Rate FiO2 12/31/24 21:01 98.0 59 18 155/87 (109) 96 98.0 12/31/24 20:00 58 12/31/24 19:17 95 Room Air 12/31/24 19:17 95 Room Air* 0 21 21 12/31/24 16:53 98.2 65 18 146/79 (101) 95 98.2 12/31/24 13:00 98.4 56 18 165/81 (109) 98 98.4 12/31/24 12:39 65 18 146/79 12/31/24 12:09 96 18 150/89 12/31/24 10:24 150/89 12/31/24 10:24 65 150/89 12/31/24 10:00 98 Room Air 12/31/24 10:00 98 Room Air* 0 21 12/31/24 09:30 97.7 65 18 150/89 (109) 96 97.7 12/31/24 09:25 98 Room Air 12/31/24 09:25 98 Room Air* 0 21 12/31/24 08:00 73 12/31/24 08:00 56 20 98 Room Air* 0 21 12/31/24 05:00 96.8 60 17 158/82 (107) 96 96.8 12/31/24 01:00 97.9 58 17 140/89 (106) 97 97.9 12/31/24 00:37 97 Room Air 12/31/24 00:37 97 Room Air* 0 21 12/30/24 22:40 Room Air* 0 21 12/30/24 22:24 98.1 58 19 170/84 (112) 97 98.1 12/30/24 12:56 97.6 72 14 139/72 (94) 94 97.6 12/30/24 11:21 94 14 139/72 12/30/24 10:41 75 14 149/81 12/30/24 10:39 149/81 12/30/24 10:38 69 149/81 12/30/24 10:30 67 18 149/81 (103) 96 12/30/24 10:00 70 12 153/79 (103) 95 12/30/24 09:25 65 12/30/24 09:00 85 14 165/86 (112) 97 12/30/24 08:38 86 11 98 Room Air* 0 21 12/30/24 08:00 98.0 70 22 151/80 (103) 96 98.0 12/30/24 07:50 100 Room Air 12/30/24 07:50 98.0 76 20 159/86 76 98.0 12/30/24 07:50 100 Room Air* 0 21 12/30/24 07:48 70 16 159/86 12/30/24 07:30 86 11 159/86 (110) 98 12/30/24 07:02 67 12/30/24 06:34 81 19 97 Room Air* 0 21 12/30/24 06:33 98.0 81 19 136/44 (74) 97 98.0 12/30/24 06:12 76 12/30/24 06:10 98.2 92 18 149/87 99 98.2 Laboratory Tests Test 12/30/24 06:35 12/31/24 05:22 White Blood Count 5.9 10^3/uL (4.4-10.8) 7.4 10^3/uL (4.4-10.8) # Medications Medications Dose Ordered Sig/Kitty Route Start Time Stop Time Status Last Admin Dose Admin Clopidogrel Bisulfate 75 mg DAILY PO 12/31/24 14:00 12/31/24 14:00 Results Labs Test 12/31/24 21:56 12/31/24 05:22 12/30/24 09:16 12/30/24 08:30 Range/Units POC Glucose 141 H 70-106 mg/dl White Blood Count 7.4 # 4.4-10.8 10^3/uL Red Blood Count 4.80 4.0-5.20 10^6/uL Hemoglobin 11.9 L 12.2-16.2 g/dL Hematocrit 37.3 36.0-46.0 % Mean Corpuscular Volume 77.6 L 80.0-100.0 fL Mean Corpuscular Hemoglobin 24.7 L 28.0-32.0 pg Mean Corpuscular Hemoglobin Concent 31.8 L 32.0-36.0 g/dL Red Cell Distribution Width 16.4 H 11.8-14.3 % Platelet Count 286 140-450 10^3/uL Mean Platelet Volume 8.2 6.9-10.8 fL Neutrophils (%) (Auto) 77.7 37.0-80.0 % Lymphocytes (%) (Auto) 17.5 10.0-50.0 % Monocytes (%) (Auto) 4.1 0.0-12.0 % Eosinophils (%) (Auto) 0.1 0.0-7.0 % Basophils (%) (Auto) 0.6 0.0-2.0 % Neutrophils # (Auto) 5.7 1.6-8.6 10 ^3/uL Lymphocytes # (Auto) 1.3 0.4-5.4 10 ^3/uL Monocytes # (Auto) 0.3 0-1.3 10 ^3/uL Eosinophils # (Auto) 0 0-0.8 10 ^3/uL Basophils # (Auto) 0 0-0.2 10 ^3/uL Nucleated Red Blood Cells 0.1 % Sodium Level 141 136-145 mmol/L Potassium Level 4.8 3.5-5.1 mmol/L Chloride Level 107 98-107 mmol/L Carbon Dioxide Level 23 20-31 mmol/L Anion Gap 11 5-15 Blood Urea Nitrogen 17 9-23 mg/dL Creatinine 0.63 0.550-1.02 mg/dL Glomerular Filtration Rate Calc 98 >90 mL/min BUN/Creatinine Ratio 27.0 H 10.0-20.0 Serum Glucose 116 H 74-106 mg/dL Hemoglobin A1c 6.6 H <5.7 % A1C Calcium Level 9.0 8.7-10.4 mg/dL Total Bilirubin 0.2 0.2-1.0 mg/dL Aspartate Amino Transferase (AST) 26 13-40 U/L Alanine Aminotransferase (ALT) 16 7-40 U/L Alkaline Phosphatase 107 46-116 U/L Total Protein 6.6 5.7-8.2 g/dL Albumin 3.9 3.2-4.8 g/dL Triglycerides Level 88 < 150 mg/dL Cholesterol Level 156 < 200 mg/dL LDL Cholesterol 87 < 100 mg/dL HDL Cholesterol 58 40-59 mg/dL Urine Color Light-yellow Yellow Urine Clarity Clear Clear Urine pH 6.0 5.0-9.0 Urine Specific [place] 1.013 1.001-1.035 Urine Protein Negative Negative Urine Ketones Negative Negative Urine Blood Negative Negative /uL Urine Nitrite Negative Negative Urine Bilirubin Negative Negative Urine Urobilinogen Normal Negative mg/dL Urine Leukocyte Esterase Trace Negative /uL Urine RBC 1 0 - 4 /hpf Urine Microscopic WBC 7 H 0-5 /HPF Urine Squamous Epithelial Cells Few <5 /hpf Urine Bacteria None seen None Seen /hpf Urine Glucose Normal Normal mg/dL Troponin I High Sensitivity 35 *H </=34 ng/L Admitting Diagnosis: 1. Acute chest pain-rule out acute NE Vs pulmonary embolism 2. acute exacerabation of COPD from Acute asthmatic bronchitis 3. Pleurisy 2. Uncontrolled hypertension 3. Fairly well-controlled NIDDM 5. Hypercholesterolemia 2' Diagnosis/Comorbidities Primary Diagnosis Acute chest pain-rule out acute NE Vs pulmonary embolism Admitting Diagnosis: 2' Diagnosis/Comorbidities Morbid obesity in adult with current BMI Obesity hypoventilation Chronic osteoarthritis and back pains Chronic narcotic dependence Medical decision making Overall patient's hemodynamic condition appears to be clinically ill from development of acute chest pains * Pleuritic nature of the pain suggest possibility of lower respiratory tract infection with pleurisy * Given cardiac risk factors, recommended serial EKGs and enzymes Initial EKGs , troponins cardiac enzymes are unremarkable for acute NE She has received multiple cardiac workup including coronary angiogram The last coronary angiogram was in late summer of 2022. There was no in stent coronary artery stenosis. * For given symptoms of chest congestion, wheezing shortness of breath Will order chest x-ray to rule out pneumonia while starting patient on IV antibiotics, bronchodilator med neb Rx * The patient is considered immunocompromised host for given history of NIDDM, morbid obesity and COPD * Initial lab work next CBC CMP are pending * Chest x-ray shows * Also noticed uncontrolled hypertension-continue patient on valsartan, metoprolol * Reconciled patient's home medications * Education on long-term management of diabetes hypertension and obesity was given Diabetic education Recommended to comply with ADA 1800 calorie diet and exercise Recommended intentional weight loss of 100 lbs Rec. Monitoring of hemoglobin A1c, renal functions every 3-4 months Rec, biannual physical exam, annual dental eye and peripheral artery ultrasound Annual 24 hour microalbuminuria Obesity education Current BMI> 40 kg per m2 Recommended intentional weight loss of 100 diet and exercise Informed patient about morbid obesity related health problems such as Obesity hypoventilation, hypoxia, cardiac arrhythmias, embolic events l eading to CVA Lifelong disability, diabetes, arthritis requiring arthroplasties and high vulnerability for COVID infections. Patient agrees to follow my recommendations Chronic narcotic dependence Discussed in length about narcotic dependence and health problems including Acute hypoxic respiratory failure, and fatal cardiac arrhythmias from hypoxia Encourage patient for alternative pain management Measures as tolerated The patient agrees to follow my recommendations to be some Plan Treatment plans as of today Admit to telemetry floor Obtain serial EKGs and enzymes Place patient on NTG, morphine Place patient on metoprolol XL, and Lipitor continue Ecotrin 81 mg by mouth daily Continue metoprolol 50 mg PO twice daily Recommend antiplatelet agent like Plavix and Lovenox Reconcile home medications Obtain sputum and blood cultures PRN temp >101.5 Place patient on broad-spectrum IV antibiotics and bronchodilator Med-Neb treatment Careful IV hydration VTE the precautions Local application of Bactroban over bilateral upper extremity patient and her have been well informed by me about 1. Admission diagnosis, treatment plans, side effects of medications, course of the disease and fair to guarded prognosis 2. Modification of risk factors including intentional weight loss for obesity, tight control of diabetes and hypertension 3. All patient's and concerns raised by patient or family are satisfactorily addressed by me SULY CARDOZO MD Dec 30, 2024 07:56
[2024-12-30 08:38] VITALS: PULSE 86; RESP 11; O2SAT 98
--- NOTE | 2024-12-30 09:19 | ECG ---
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
--- NOTE | 2024-12-30 09:27 | ECG ---
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
[2024-12-30] MEDS: SOD CHL 0.45% 1,000 ML IV ONE (09:52)
[2024-12-30] MEDS: CLOPIDOGREL BISULFATE 75 MG TAB PO SCH (10:37)
[2024-12-30] MEDS: OXYBUTYNIN CHL 5 MG TAB PO SCH (10:37)
[2024-12-30] MEDS: METOPROLOL SUCCINATE XL 50 MG TAB PO SCH (10:38)
[2024-12-30] MEDS: EMPAGLIFLOZIN 10 MG TAB PO SCH (10:39)
[2024-12-30] MEDS: MULTIPLE VITAMIN TAB PO SCH (10:39)
[2024-12-30] MEDS: VALSARTAN 80 MG TAB PO SCH (10:39)
[2024-12-30] MEDS: BETAMETHASONE DIPROP0.05% TOPICAL CREAM 15GM TOP SCH (10:39)
[2024-12-30] MEDS: HYDROmorphone HCL 2 MG/ML VL/or syr IV PRN (10:41)
[2024-12-30] MEDS: INSULIN LISPRO (HUMAN) 100 UNITS/ML ML SC SCH ×2 (11:30→23:02)
[2024-12-30] MEDS: HYDROCORTISONE SOD SUCC 100 MG/2ML INJ VIAL IV SCH (12:37)
[2024-12-30 12:56] VITALS: BP 139/72; PULSE 72; RESP 14; TEMP 97.6; O2SAT 94
[2024-12-30 14:18] LABS: Urine Protein, UAD Negative (Negative)
[2024-12-30] MEDS: KETOROLAC TROMETH 30 MG/ML 1ML VIAL IV SCH (14:51)
[2024-12-30 22:24] VITALS: BP 170/84; PULSE 58; RESP 19; TEMP 98.1; O2SAT 97
[2024-12-30] MEDS: GABAPENTIN 100 MG CAP PO SCH (22:53)
[2024-12-30] MEDS: ENOXAPARIN SOD 60 MG/0.6 ML SYRINGE SC SCH (22:54)
[2024-12-31] VITALS (12 sets, daily range): BP systolic 140–165; BP diastolic 79–89; PULSE 56–73; RESP 17–20; TEMP 96.8–98.4; O2SAT 95–98
[2024-12-31] MEDS: PANTOPRAZOLE 40 MG TAB PO SCH (05:44)
[2024-12-31 06:42] LABS: Hematocrit 37.3 % (36.0-46.0); Nucleated Red Blood Cells % 0.1 %
[2024-12-31 06:44] LABS: Hemoglobin 11.9 g/dL (12.2-16.2); Mean Corpuscular Hemoglobin 24.7 pg (28.0-32.0); Mean Corpuscular Volume 77.6 fL (80.0-100.0)
[2024-12-31 07:17] LABS: Alanine Aminotransferase 16 U/L (7-40); Alkaline Phosphatase 107 U/L (46-116); Anion Gap 11 (5-15); BUN/Creatinine Ratio 27.0 (10.0-20.0); Blood Urea Nitrogen 17 mg/dL (9-23); Calcium 9.0 mg/dL (8.7-10.4); Carbon Dioxide 23 mmol/L (20-31); Potassium 4.8 mmol/L (3.5-5.1); Sodium 141 mmol/L (136-145); Total Protein 6.6 g/dL (5.7-8.2); Triglycerides 88 mg/dL (< 150)
[2024-12-31 07:18] LABS: Albumin 3.9 g/dL (3.2-4.8); Cholesterol 156 mg/dL (< 200); HDL Cholesterol 58 mg/dL (40-59)
[2024-12-31 07:20] LABS: Bilirubin, Total 0.2 mg/dL (0.2-1.0); Chloride 107 mmol/L (98-107); Glucose 116 mg/dL (74-106)
[2024-12-31] MEDS ORDERED: CITALOPRAM HYDROBR 20 MG TAB PO SCH (10:00)
[2024-12-31] MEDS ORDERED: ARIPIPRAZOLE 10 MG PO SCH (10:00)
[2024-12-31] MEDS: ABILIFY 10 MG PO SCH (10:29)
[2024-12-31] MEDS: CLOPIDOGREL BISULFATE 75 MG TAB PO SCH (14:00)
--- NOTE | 2024-12-31 23:00 | DVHPN2 ---
Progress Note - Dictate Date Seen: Dec 31, 2024 vital signs Vital Sign Date Time Temp Pulse Resp B/P (MAP) Pulse Ox O2 Delivery O2 Flow Rate FiO2 12/31/24 21:01 98.0 59 18 155/87 (109) 96 98.0 12/31/24 19:17 Room Air 12/31/24 19:17 0 21 21 Total Intake and Output 12/30/24 12/30/24 12/31/24 15:00 23:00 07:00 Intake Total 240 ml Balance 240 ml medications Current Medications Medications Dose Ordered Sig/Kitty Route Start Time Stop Time Status Last Admin Dose Admin Nitroglycerin 0.4 mg Q5MINP PRN SL 12/30/24 07:30 Morphine Sulfate 2 mg Q30M PRN IV 12/30/24 07:30 Albuterol 2.5 mg Q4HPRN PRN NEB 12/30/24 07:30 Betamethasone Dipropion Augmented 1 applic DAILY TOP 12/30/24 10:00 Docusate Sodium 100 mg DAILY PRN PO 12/30/24 07:30 Duloxetine HCl 30 mg DAILY PO 12/30/24 10:00 12/31/24 10:23 30 MG Empaglifozin 10 mg DAILY PO 12/30/24 10:00 12/31/24 10:23 10 MG Metoprolol Succinate 50 mg DAILY PO 12/30/24 10:00 12/31/24 10:24 50 MG Multivitamins 1 tab DAILY PO 12/30/24 10:00 12/31/24 10:25 1 TAB Oxybutynin Chloride 10 mg DAILY PO 12/30/24 10:00 12/31/24 10:00 10 MG Pantoprazole Sodium 40 mg QAM PO 12/31/24 07:00 12/31/24 05:44 40 MG Valsartan 160 mg DAILY PO 12/30/24 10:00 12/31/24 10:24 160 MG Hydrocortisone Sodium Succinate 50 mg Q6HR IV 12/30/24 12:00 12/31/24 18:00 50 MG Ketorolac Tromethamine 30 mg Q8HR IV 12/30/24 14:00 01/04/25 13:59 12/31/24 21:49 30 MG Insulin Human Lispro AC SC 12/30/24 11:30 12/31/24 17:00 5 UNITS Insulin Human Lispro HS SC 12/30/24 22:00 Hydromorphone HCl 0.8 mg Q4HP PRN IV 12/30/24 07:45 12/31/24 12:09 0.8 MG Ceftriaxone Sodium 50 ml @ 100 mls/hr DAILY IV 12/30/24 10:00 12/31/24 10:22 100 MLS/HR Gabapentin 200 mg TID PO 12/30/24 22:00 12/31/24 21:49 200 MG Citalopram Hydrobromide 20 mg DAILY PO 12/31/24 10:00 Patient Own Medication 10 DAILY PO 12/31/24 10:00 12/31/24 10:29 10 Clopidogrel Bisulfate 75 mg DAILY PO 12/31/24 14:00 12/31/24 14:00 75 MG Enoxaparin Sodium 50 mg Q12HR SC 12/30/24 22:00 12/31/24 21:51 50 MG objective Physical Exam General appearance: Well-developed, morbidly obese middle-aged AA female Appears in discomfort due to chest pains, SOB Head: Normocephalic nontraumatic Eyes: EOMI, AMBAR, sclera nonicteric, conjunctive- pale ENT: Mild bilateral nasal congestion, bilateral TM mildly hyperemic NSL bilateral symmetrical, oral mucosa dry +2 Neck: Supple, carotid upstroke +2, trachea R off midline, JVD 1 cm No stridor, no goiter, no thyroid or lymph node enlargement No use of accessory muscles Chest: Emphysema, Bilateral symmetrical expansions of anterior wall, Costochondral tenderness at 6, 7, 8 ICS Breasts: I exam - Bilateral symmetrical, Lungs: clear breath sounds all over except reduced at bases A few late inspiratory rales at L lower base present CVS: PMI- 1 cm lateral to L MCL in fifth ICS , S1- S2 NSR no S3 GI: Abdomen soft, obese, bowel sounds normoactive No focal tenderness, no rebound tenderness No hepatosplenomegaly, no mass no hernia , : No CVA tenderness, no bladder mass palpable, genitalia-NE SKIN: Turgor -dry, color pale, no rash, no icterus, Multiple scar of scabbed lesions No varicosity EXTs: No edema, color pink, no rash, no ecchymosis distal pulses +2 capillary refill <2 seconds, Scars of well healed scabbed lesions JOINTS; reduced range of motion BACK: No apparent lumbosacral spinal muscle tenderness, LYMPH NODES: No cervical, axillary or inguinal lymph nodes Neuro: Awake alert oriented 4, coherent, all cognitives- intact No pronator drift, no focal motor deficit, Changes of DPN, DTR +2, gait steady PSYCH: Affect mildly depressed-denies suicidal ideation laboratory and microbiology Laboratory Tests 12/31/24 05:22 Test 12/31/24 05:22 Range/Units Serum Glucose 116 H 74-106 mg/dL SULY CARDOZO MD Dec 31, 2024 23:00
[2025-01-01] VITALS (11 sets, daily range): BP systolic 151–162; BP diastolic 72–84; PULSE 18–74; RESP 16–20; TEMP 97.4–98.9; O2SAT 95–99
[2025-01-01] MEDS: DOCUSATE SOD 100 MG CAP PO PRN (06:39)
--- NOTE | 2025-01-01 23:07 | DVHPN2 ---
Progress Note - Dictate Subjective Pt is seen 2D echo done Report pending vital signs Vital Sign Date Time Temp Pulse Resp B/P (MAP) Pulse Ox O2 Delivery O2 Flow Rate FiO2 01/01/25 22:25 97 Room Air* 0 21 01/01/25 21:00 98.1 74 17 154/79 (104) 98.1 Total Intake and Output 12/31/24 12/31/24 01/01/25 15:00 23:00 07:00 Intake Total 50 ml 425 ml 240 ml Balance 50 ml 425 ml 240 ml medications Current Medications Medications Dose Ordered Sig/Kitty Route Start Time Stop Time Status Last Admin Dose Admin Nitroglycerin 0.4 mg Q5MINP PRN SL 12/30/24 07:30 Morphine Sulfate 2 mg Q30M PRN IV 12/30/24 07:30 Albuterol 2.5 mg Q4HPRN PRN NEB 12/30/24 07:30 Betamethasone Dipropion Augmented 1 applic DAILY TOP 12/30/24 10:00 01/01/25 10:16 1 APPLIC Docusate Sodium 100 mg DAILY PRN PO 12/30/24 07:30 01/01/25 06:39 100 MG Duloxetine HCl 30 mg DAILY PO 12/30/24 10:00 01/01/25 10:07 30 MG Empaglifozin 10 mg DAILY PO 12/30/24 10:00 01/01/25 10:10 10 MG Metoprolol Succinate 50 mg DAILY PO 12/30/24 10:00 01/01/25 10:08 50 MG Multivitamins 1 tab DAILY PO 12/30/24 10:00 01/01/25 10:11 1 TAB Oxybutynin Chloride 10 mg DAILY PO 12/30/24 10:00 01/01/25 10:16 10 MG Pantoprazole Sodium 40 mg QAM PO 12/31/24 07:00 01/01/25 06:15 40 MG Valsartan 160 mg DAILY PO 12/30/24 10:00 01/01/25 10:10 160 MG Hydrocortisone Sodium Succinate 50 mg Q6HR IV 12/30/24 12:00 01/01/25 06:09 50 MG Ketorolac Tromethamine 30 mg Q8HR IV 12/30/24 14:00 01/04/25 13:59 01/01/25 21:38 30 MG Insulin Human Lispro AC SC 12/30/24 11:30 12/31/24 17:00 5 UNITS Insulin Human Lispro HS SC 12/30/24 22:00 01/01/25 22:45 4 UNITS Hydromorphone HCl 0.8 mg Q4HP PRN IV 12/30/24 07:45 01/01/25 10:11 0.8 MG Ceftriaxone Sodium 50 ml @ 100 mls/hr DAILY IV 12/30/24 10:00 01/01/25 10:07 100 MLS/HR Gabapentin 200 mg TID PO 12/30/24 22:00 01/01/25 21:38 200 MG Citalopram Hydrobromide 20 mg DAILY PO 12/31/24 10:00 Patient Own Medication 10 DAILY PO 12/31/24 10:00 12/31/24 10:29 10 Clopidogrel Bisulfate 75 mg DAILY PO 12/31/24 14:00 01/01/25 10:08 75 MG Enoxaparin Sodium 50 mg Q12HR SC 12/30/24 22:00 01/01/25 21:35 50 MG objective Physical Exam General appearance: Well-developed, morbidly obese middle-aged AA female Appears in discomfort due to chest pains, SOB Head: Normocephalic nontraumatic Eyes: EOMI, AMBAR, sclera nonicteric, conjunctive- pale ENT: Mild bilateral nasal congestion, bilateral TM mildly hyperemic NSL bilateral symmetrical, oral mucosa dry +2 Neck: Supple, carotid upstroke +2, trachea R off midline, JVD 1 cm No stridor, no goiter, no thyroid or lymph node enlargement No use of accessory muscles Chest: Emphysema, Bilateral symmetrical expansions of anterior wall, Costochondral tenderness at 6, 7, 8 ICS Breasts: I exam - Bilateral symmetrical, Lungs: clear breath sounds all over except reduced at bases A few late inspiratory rales at L lower base present CVS: PMI- 1 cm lateral to L MCL in fifth ICS , S1- S2 NSR no S3 GI: Abdomen soft, obese, bowel sounds normoactive No focal tenderness, no rebound tenderness No hepatosplenomegaly, no mass no hernia , : No CVA tenderness, no bladder mass palpable, genitalia-NE SKIN: Turgor -dry, color pale, no rash, no icterus, Multiple scar of scabbed lesions No varicosity EXTs: No edema, color pink, no rash, no ecchymosis distal pulses +2 capillary refill <2 seconds, Scars of well healed scabbed lesions JOINTS; reduced range of motion BACK: No apparent lumbosacral spinal muscle tenderness, LYMPH NODES: No cervical, axillary or inguinal lymph nodes Neuro: Awake alert oriented 4, coherent, all cognitives- intact No pronator drift, no focal motor deficit, Changes of DPN, DTR +2, gait steady PSYCH: Affect mildly depressed-denies suicidal ideation laboratory and microbiology Laboratory Tests 12/31/24 05:22 Test 12/31/24 05:22 Range/Units Serum Glucose 116 H 74-106 mg/dL SULY CARDOZO MD Jan 01, 2025 23:07
[2025-01-02] VITALS (13 sets, daily range): BP systolic 143–187; BP diastolic 49–87; PULSE 18–63; RESP 17–20; TEMP 97.6–98.2; O2SAT 94–99
--- NOTE | 2025-01-02 00:22 | DVHSR ---
APPROVED REPORT EXAM: LIMITED Two-dimensional and M-mode echocardiogram with Doppler and color Doppler. Blood Pressure: 147/74 mmHg INDICATION elevated trops acute mi RISK FACTORS Obesity: Height: 5'5, Weight: 259 DIMENSIONS LVDd3.7 (3.8-5.7cm)LA (2D)4.4 (1.9-4.0cm)Aortic Root2.9 (2.0-3.7cm) LVDs2.2 (2.5-4.0cm)LA (MM) (1.9-4.0cm)Aortic Cusp Exc1.5 (1.5-2.0cm) EF (%) 70.0 (55-70%)Rt. Atrium (1.9-4.0cm)Asc. Aorta cm IVSd1.4 (0.7-1.1cm)RV (D) (1.8-2.4cm) PWd1.3 (0.7-1.1cm) Mitral Valve MitralMitral Stenosis E wave1.17m/sMV Mean GR.mmHg A wave1.00m/sMV Peak GR.39mmHg E/A ratio1.22D MVAcm2 DECEL [id number] 1/2 Timems Aortic Valve Aortic ValveAortic Stenosis V11.23m/Pascale Mean GR.5mmHg V21.46m/Pascale Peak GR.8mmHg LVOT Diameter2.1 (1.8-2.4cm)Doppler AVA2.92cm2 Pulmonic Valve V20.99m/s Tricuspid Valve TR Velocity2.37m/s [id number] Other Information Quality : Technically LimitedRhythm : Technically limited study due to pt c/o pressure from probe and pain, unable to turn. Conclusion SLIGHTLY DILATED RV , RA AND LA MILD DYSKINESIS OF IVS RVSP IS 38 MM OF HG AND IS BORDERLINE ELEVATED MILD PULMONARY HYPERTENSION LV EF IS 60% AND IS NORMAL NORMAL VALVES NO EFFUSION
--- NOTE | 2025-01-02 15:23 | DVHPN2 ---
Objective Vitals Vital Signs Date Time Temp Pulse Resp B/P (MAP) Pulse Ox O2 Delivery O2 Flow Rate FiO2 01/02/25 12:42 98.2 52 20 187/76 (113) 95 98.2 01/02/25 07:50 0.0 21 01/02/25 05:29 Room Air Intake/Output Intake and Output 01/02/25 07:00 Intake Total 1070 ml Balance 1070 ml Intake Oral 1020 ml IV Total 50 ml # Voids 6 Medications Current Medications Medications Dose Ordered Sig/Kitty Route Start Time Stop Time Status Last Admin Dose Admin Nitroglycerin 0.4 mg Q5MINP PRN SL 12/30/24 07:30 Morphine Sulfate 2 mg Q30M PRN IV 12/30/24 07:30 Albuterol 2.5 mg Q4HPRN PRN NEB 12/30/24 07:30 Betamethasone Dipropion Augmented 1 applic DAILY TOP 12/30/24 10:00 01/02/25 10:00 1 APPLIC Docusate Sodium 100 mg DAILY PRN PO 12/30/24 07:30 01/01/25 06:39 100 MG Duloxetine HCl 30 mg DAILY PO 12/30/24 10:00 01/02/25 10:25 30 MG Empaglifozin 10 mg DAILY PO 12/30/24 10:00 01/02/25 10:24 10 MG Metoprolol Succinate 50 mg DAILY PO 12/30/24 10:00 01/02/25 10:25 50 MG Multivitamins 1 tab DAILY PO 12/30/24 10:00 01/02/25 10:24 1 TAB Oxybutynin Chloride 10 mg DAILY PO 12/30/24 10:00 01/02/25 10:29 10 MG Pantoprazole Sodium 40 mg QAM PO 12/31/24 07:00 01/02/25 06:14 40 MG Valsartan 160 mg DAILY PO 12/30/24 10:00 01/02/25 10:24 160 MG Hydrocortisone Sodium Succinate 50 mg Q6HR IV 12/30/24 12:00 01/02/25 12:11 50 MG Ketorolac Tromethamine 30 mg Q8HR IV 12/30/24 14:00 01/04/25 13:59 01/01/25 14:00 30 MG Insulin Human Lispro AC SC 12/30/24 11:30 12/31/24 17:00 5 UNITS Insulin Human Lispro HS SC 12/30/24 22:00 01/01/25 22:45 4 UNITS Hydromorphone HCl 0.8 mg Q4HP PRN IV 12/30/24 07:45 01/01/25 23:53 0.8 MG Ceftriaxone Sodium 50 ml @ 100 mls/hr DAILY IV 12/30/24 10:00 01/02/25 10:24 100 MLS/HR Gabapentin 200 mg TID PO 12/30/24 22:00 01/02/25 06:14 200 MG Citalopram Hydrobromide 20 mg DAILY PO 12/31/24 10:00 Patient Own Medication 10 DAILY PO 12/31/24 10:00 01/02/25 10:00 10 Clopidogrel Bisulfate 75 mg DAILY PO 12/31/24 14:00 01/02/25 10:24 75 MG Enoxaparin Sodium 50 mg Q12HR SC 12/30/24 22:00 01/02/25 10:28 50 MG Laboratory Results Laboratory Tests 12/31/24 05:22 Urinalysis Test 12/30/24 09:16 Urine Color Light-yellow (Yellow) Urine Clarity Clear (Clear) Urine pH 6.0 (5.0-9.0) Urine Specific [place] 1.013 (1.001-1.035) Urine Protein Negative (Negative) Urine Ketones Negative (Negative) Urine Blood Negative /uL (Negative) Urine Nitrite Negative (Negative) Urine Bilirubin Negative (Negative) Urine Urobilinogen Normal mg/dL (Negative) Urine Leukocyte Esterase Trace /uL (Negative) Urine RBC 1 /hpf (0 - 4) Urine Microscopic WBC 7 /HPF (0-5) H Urine Squamous Epithelial Cells Few /hpf (<5) Urine Bacteria None seen /hpf (None Seen) Urine Glucose Normal mg/dL (Normal) BIJAN GALAZRA MD Jan 02, 2025 15:23
--- NOTE | 2025-01-02 23:16 | DVHPN2 ---
Progress Note - Dictate Subjective Pt is seen 2D echo EF 60% Pt states she is doing well vital signs Vital Sign Date Time Temp Pulse Resp B/P (MAP) Pulse Ox O2 Delivery O2 Flow Rate FiO2 01/02/25 21:00 97.6 52 17 146/79 (101) 96 97.6 01/02/25 20:07 Room Air 01/02/25 20:07 0 21 Total Intake and Output 01/01/25 01/01/25 01/02/25 15:00 23:00 07:00 Intake Total 50 ml 720 ml 300 ml Balance 50 ml 720 ml 300 ml medications Current Medications Medications Dose Ordered Sig/Kitty Route Start Time Stop Time Status Last Admin Dose Admin Nitroglycerin 0.4 mg Q5MINP PRN SL 12/30/24 07:30 Morphine Sulfate 2 mg Q30M PRN IV 12/30/24 07:30 Albuterol 2.5 mg Q4HPRN PRN NEB 12/30/24 07:30 Betamethasone Dipropion Augmented 1 applic DAILY TOP 12/30/24 10:00 01/02/25 10:00 1 APPLIC Docusate Sodium 100 mg DAILY PRN PO 12/30/24 07:30 01/01/25 06:39 100 MG Duloxetine HCl 30 mg DAILY PO 12/30/24 10:00 01/02/25 10:25 30 MG Empaglifozin 10 mg DAILY PO 12/30/24 10:00 01/02/25 10:24 10 MG Metoprolol Succinate 50 mg DAILY PO 12/30/24 10:00 01/02/25 10:25 50 MG Multivitamins 1 tab DAILY PO 12/30/24 10:00 01/02/25 10:24 1 TAB Oxybutynin Chloride 10 mg DAILY PO 12/30/24 10:00 01/02/25 10:29 10 MG Pantoprazole Sodium 40 mg QAM PO 12/31/24 07:00 01/02/25 06:14 40 MG Valsartan 160 mg DAILY PO 12/30/24 10:00 01/02/25 10:24 160 MG Hydrocortisone Sodium Succinate 50 mg Q6HR IV 12/30/24 12:00 01/02/25 18:00 50 MG Ketorolac Tromethamine 30 mg Q8HR IV 12/30/24 14:00 01/04/25 13:59 01/02/25 22:02 30 MG Insulin Human Lispro AC SC 12/30/24 11:30 12/31/24 17:00 5 UNITS Insulin Human Lispro HS SC 12/30/24 22:00 01/02/25 22:54 2 UNITS Hydromorphone HCl 0.8 mg Q4HP PRN IV 12/30/24 07:45 01/01/25 23:53 0.8 MG Ceftriaxone Sodium 50 ml @ 100 mls/hr DAILY IV 12/30/24 10:00 01/02/25 10:24 100 MLS/HR Gabapentin 200 mg TID PO 12/30/24 22:00 01/02/25 22:02 200 MG Citalopram Hydrobromide 20 mg DAILY PO 12/31/24 10:00 Patient Own Medication 10 DAILY PO 12/31/24 10:00 01/02/25 10:00 10 Clopidogrel Bisulfate 75 mg DAILY PO 12/31/24 14:00 01/02/25 10:24 75 MG Enoxaparin Sodium 50 mg Q12HR SC 12/30/24 22:00 01/02/25 22:02 50 MG objective Physical Exam General appearance: Well-developed, morbidly obese middle-aged AA female Appears in discomfort due to chest pains, SOB Head: Normocephalic nontraumatic Eyes: EOMI, AMBAR, sclera nonicteric, conjunctive- pale ENT: Mild bilateral nasal congestion, bilateral TM mildly hyperemic NSL bilateral symmetrical, oral mucosa dry +2 Neck: Supple, carotid upstroke +2, trachea R off midline, JVD 1 cm No stridor, no goiter, no thyroid or lymph node enlargement No use of accessory muscles Chest: Emphysema, Bilateral symmetrical expansions of anterior wall, Costochondral tenderness at 6, 7, 8 ICS Breasts: I exam - Bilateral symmetrical, Lungs: clear breath sounds all over except reduced at bases A few late inspiratory rales at L lower base present CVS: PMI- 1 cm lateral to L MCL in fifth ICS , S1- S2 NSR no S3 GI: Abdomen soft, obese, bowel sounds normoactive No focal tenderness, no rebound tenderness No hepatosplenomegaly, no mass no hernia , : No CVA tenderness, no bladder mass palpable, genitalia-NE SKIN: Turgor -dry, color pale, no rash, no icterus, Multiple scar of scabbed lesions No varicosity EXTs: No edema, color pink, no rash, no ecchymosis distal pulses +2 capillary refill <2 seconds, Scars of well healed scabbed lesions JOINTS; reduced range of motion BACK: No apparent lumbosacral spinal muscle tenderness, LYMPH NODES: No cervical, axillary or inguinal lymph nodes Neuro: Awake alert oriented 4, coherent, all cognitives- intact No pronator drift, no focal motor deficit, Changes of DPN, DTR +2, gait steady PSYCH: Affect mildly depressed-denies suicidal ideation laboratory and microbiology Laboratory Tests 12/31/24 05:22 Test 12/31/24 05:22 Range/Units Serum Glucose 116 H 74-106 mg/dL SULY CARDOZO MD Jan 02, 2025 23:16
[2025-01-03] VITALS (14 sets, daily range): BP systolic 157–183; BP diastolic 72–99; PULSE 47–98; RESP 16–20; TEMP 97–98.9; O2SAT 91–100
[2025-01-03 06:26] LABS: Hemoglobin 12.2 g/dL (12.2-16.2)
[2025-01-03 06:29] LABS: Hematocrit 38.1 % (36.0-46.0); Mean Corpuscular Hemoglobin 24.6 pg (28.0-32.0); Mean Corpuscular Volume 76.6 fL (80.0-100.0); Nucleated Red Blood Cells % 0.2 %
[2025-01-03 07:39] LABS: Albumin 3.8 g/dL (3.2-4.8); Alkaline Phosphatase 91 U/L (46-116); Anion Gap 9 (5-15); BUN/Creatinine Ratio 23.5 (10.0-20.0); Blood Urea Nitrogen 16 mg/dL (9-23); Calcium 9.0 mg/dL (8.7-10.4); Carbon Dioxide 28 mmol/L (20-31); Chloride 104 mmol/L (98-107); Potassium 3.6 mmol/L (3.5-5.1); Sodium 141 mmol/L (136-145); Total Protein 6.5 g/dL (5.7-8.2)
[2025-01-03] MEDS: ALBUTEROL SULF 2.5 MG/0.5ML(0.5%) NEB SOLN NEB PRN (07:41)
[2025-01-03 07:47] LABS: Bilirubin, Total 0.3 mg/dL (0.2-1.0); Glucose 124 mg/dL (74-106)
[2025-01-03 07:48] LABS: Alanine Aminotransferase 14 U/L (7-40)
[2025-01-03] MEDS: SILDENAFIL CITRATE 20 MG TAB PO SCH (08:23)
--- NOTE | 2025-01-03 10:43 | DVH ---
XY CHEST TWO VIEWS ROUTINE CLINICAL HISTORY: Cardiomegaly/CHF COMPARISON: XY CHEST TWO VIEWS ROUTINE on DOS: 07/30/24, XY CHEST TWO VIEWS ROUTINE on DOS: 05/30/24, XR CHEST 2 VIEW on DOS: 05/18/24 TECHNIQUE: Frontal and lateral view of the chest was obtained FINDINGS: Lines and Tubes: None Lungs: No focal consolidation. Pleura: No effusion. No pneumothorax. Cardiomediastinal contours:Decreased cardiac size compared to 12/30/2024. This most likely represents a difference in magnification. Bones: No acute osseous abnormality. IMPRESSION: 1. No acute cardiopulmonary disease. 2. Decreased pulmonary vascular prominence.
[2025-01-03] MEDS: VALSARTAN 80 MG TAB PO SCH (22:00)
--- NOTE | 2025-01-03 23:49 | DVHPN2 ---
Progress Note - Dictate Date Seen: Jan 03, 2025 Subjective Pt is seen Noted uncontrolled hypertension Recommended higher dose of valsartan 160 mg p.o. b.i.d. Recommended clonidine as of capital p.r.n. antihypertensive Reviewed 2D echo report Place patient on Viagra which she is tolerating well Overnight events are reviewed through medical chart and case discussion with patient's assigned RN while making rounds on patient on the day of service low-salt vital signs Vital Sign Date Time Temp Pulse Resp B/P (MAP) Pulse Ox O2 Delivery O2 Flow Rate FiO2 01/03/25 23:15 61 18 100 01/03/25 23:09 Room Air 01/03/25 23:09 0 21 01/03/25 22:39 155/84 01/03/25 21:00 98.9 98.9 Total Intake and Output 01/02/25 01/02/25 01/03/25 15:00 23:00 07:00 Intake Total 400 ml 840 ml Balance 400 ml 840 ml medications Current Medications Medications Dose Ordered Sig/Kitty Route Start Time Stop Time Status Last Admin Dose Admin Nitroglycerin 0.4 mg Q5MINP PRN SL 12/30/24 07:30 Morphine Sulfate 2 mg Q30M PRN IV 12/30/24 07:30 Albuterol 2.5 mg Q4HPRN PRN NEB 12/30/24 07:30 01/03/25 23:09 2.5 MG Betamethasone Dipropion Augmented 1 applic DAILY TOP 12/30/24 10:00 01/03/25 08:29 1 APPLIC Docusate Sodium 100 mg DAILY PRN PO 12/30/24 07:30 01/01/25 06:39 100 MG Duloxetine HCl 30 mg DAILY PO 12/30/24 10:00 01/03/25 08:20 30 MG Empaglifozin 10 mg DAILY PO 12/30/24 10:00 01/03/25 08:22 10 MG Metoprolol Succinate 50 mg DAILY PO 12/30/24 10:00 01/02/25 10:25 50 MG Multivitamins 1 tab DAILY PO 12/30/24 10:00 01/03/25 08:21 1 TAB Oxybutynin Chloride 10 mg DAILY PO 12/30/24 10:00 01/03/25 08:21 10 MG Pantoprazole Sodium 40 mg QAM PO 12/31/24 07:00 01/03/25 07:06 40 MG Hydrocortisone Sodium Succinate 50 mg Q6HR IV 12/30/24 12:00 01/03/25 17:39 50 MG Ketorolac Tromethamine 30 mg Q8HR IV 12/30/24 14:00 01/04/25 13:59 01/03/25 21:36 30 MG Insulin Human Lispro AC SC 12/30/24 11:30 01/03/25 16:58 5 UNITS Insulin Human Lispro HS SC 12/30/24 22:00 01/03/25 22:15 4 UNITS Hydromorphone HCl 0.8 mg Q4HP PRN IV 12/30/24 07:45 01/03/25 22:38 0.8 MG Ceftriaxone Sodium 50 ml @ 100 mls/hr DAILY IV 12/30/24 10:00 01/03/25 08:20 100 MLS/HR Gabapentin 200 mg TID PO 12/30/24 22:00 01/03/25 21:35 200 MG Patient Own Medication 10 DAILY PO 12/31/24 10:00 01/03/25 10:26 10 Clopidogrel Bisulfate 75 mg DAILY PO 12/31/24 14:00 01/03/25 08:23 75 MG Enoxaparin Sodium 50 mg Q12HR SC 12/30/24 22:00 01/03/25 21:38 50 MG Sildenafil Citrate 20 mg TID@08,14,20 PO 01/03/25 08:00 01/03/25 21:38 20 MG Valsartan 160 mg BID PO 01/03/25 22:00 Clonidine HCl 0.2 mg Q4HP PRN PO 01/03/25 20:30 01/03/25 21:36 0.2 MG objective Physical Exam General appearance: Well-developed, morbidly obese middle-aged AA female Appears in discomfort due to chest pains, SOB Head: Normocephalic nontraumatic Eyes: EOMI, AMBAR, sclera nonicteric, conjunctive- pale ENT: Mild bilateral nasal congestion, bilateral TM mildly hyperemic NSL bilateral symmetrical, oral mucosa dry +2 Neck: Supple, carotid upstroke +2, trachea R off midline, JVD 1 cm No stridor, no goiter, no thyroid or lymph node enlargement No use of accessory muscles Chest: Emphysema, Bilateral symmetrical expansions of anterior wall, Costochondral tenderness at 6, 7, 8 ICS Breasts: I exam - Bilateral symmetrical, Lungs: clear breath sounds all over except reduced at bases A few late inspiratory rales at L lower base present CVS: PMI- 1 cm lateral to L MCL in fifth ICS , S1- S2 NSR no S3 GI: Abdomen soft, obese, bowel sounds normoactive No focal tenderness, no rebound tenderness No hepatosplenomegaly, no mass no hernia , : No CVA tenderness, no bladder mass palpable, genitalia-NE SKIN: Turgor -dry, color pale, no rash, no icterus, Multiple scar of scabbed lesions No varicosity EXTs: No edema, color pink, no rash, no ecchymosis distal pulses +2 capillary refill <2 seconds, Scars of well healed scabbed lesions JOINTS; reduced range of motion BACK: No apparent lumbosacral spinal muscle tenderness, LYMPH NODES: No cervical, axillary or inguinal lymph nodes Neuro: Awake alert oriented 4, coherent, all cognitives- intact No pronator drift, no focal motor deficit, Changes of DPN, DTR +2, gait steady PSYCH: Affect mildly depressed-denies suicidal ideation laboratory and microbiology Laboratory Tests 01/03/25 05:44 Test 01/03/25 05:44 Range/Units Serum Glucose 124 H 74-106 mg/dL PATIENT: CANDELARIA HOOVER ACCT: [id number] UNIT: [id number] : 1960 [facility]GE / SEX: 64 / F ADM STATUS: ADM IN SERVICE 0800 ORDERING PHYSICIAN: SULY CARDOZO MD PROCEDURE(s): CXR2 - CHEST TWO VIEWS ROUTINE REASON: Cardiomegaly/CHF ORDER NUMBER(s): [id number], ACCESSION NUMBER(s): [id number] XY CHEST TWO VIEWS ROUTINE CLINICAL HISTORY: Cardiomegaly/CHF COMPARISON: XY CHEST TWO VIEWS ROUTINE on DOS: 07/30/24, XY CHEST TWO VIEWS ROUTINE on DOS: 05/30/24, XR CHEST 2 VIEW on DOS: 05/18/24 TECHNIQUE: Frontal and lateral view of the chest was obtained FINDINGS: Lines and Tubes: None Lungs: No focal consolidation. Pleura: No effusion. No pneumothorax. Cardiomediastinal contours:Decreased cardiac size compared to 12/30/2024. This most likely represents a difference in magnification. Bones: No acute osseous abnormality. IMPRESSION: 1. No acute cardiopulmonary disease. 2. Decreased pulmonary vascular prominence. ATED BY: SIS MAHER Jr. DO Assessment/Plan Uncontrolled hypertension Acute chest pains Treatment plans Increase dose of valsartan 160 mg p.o. b.i.d. Add clonidine Continue metoprolol Dietary Evaluation Review Recommendations by RD: Dietary education by RD Comments: 1) Add cardiac restriction to 60g CCHO diet 2) Refer to outpatient RD for weight management 3) Follow-up with cardiology and pulmonology 4) Continue to monitor I&O, labs, and skin integrity Expected Outcomes/Goals: 1) appetite and labs to improve 2) gradual wt loss 3) f/u in 3-5 days SULY CARDOZO MD Jan 03, 2025 23:49
[2025-01-04] VITALS (9 sets, daily range): BP systolic 133–168; BP diastolic 70–97; PULSE 52–60; RESP 15–20; TEMP 97.4–98.6; O2SAT 95–98
[2025-01-04] MEDS ORDERED: SILD20TA PO (12:21)
--- NOTE | 2025-01-04 12:31 | DVHDS2 ---
Discharge Summary Date of Admission Dec 30, 2024 at 07:20 Date of Discharge: Jan 04, 2025 Labs/Diagnostic Data: Laboratory Results Test 01/04/25 06:16 01/03/25 05:44 01/01/25 06:50 12/31/24 05:22 POC Glucose 153 mg/dl (70-106) White Blood Count 6.3 10^3/uL (4.4-10.8) Red Blood Count 4.97 10^6/uL (4.0-5.20) Hemoglobin 12.2 g/dL (12.2-16.2) Hematocrit 38.1 % (36.0-46.0) Mean Corpuscular Volume 76.6 fL (80.0-100.0) Mean Corpuscular Hemoglobin 24.6 pg (28.0-32.0) Mean Corpuscular Hemoglobin Concent 32.1 g/dL (32.0-36.0) Red Cell Distribution Width 16.5 % (11.8-14.3) Platelet Count 258 10^3/uL (140-450) Mean Platelet Volume 8.3 fL (6.9-10.8) Neutrophils (%) (Auto) 69.7 % (37.0-80.0) Lymphocytes (%) (Auto) 22.8 % (10.0-50.0) Monocytes (%) (Auto) 6.4 % (0.0-12.0) Eosinophils (%) (Auto) 0.5 % (0.0-7.0) Basophils (%) (Auto) 0.6 % (0.0-2.0) Neutrophils # (Auto) 4.4 10 ^3/uL (1.6-8.6) Lymphocytes # (Auto) 1.4 10 ^3/uL (0.4-5.4) Monocytes # (Auto) 0.4 10 ^3/uL (0-1.3) Eosinophils # (Auto) 0 10 ^3/uL (0-0.8) Basophils # (Auto) 0 10 ^3/uL (0-0.2) Nucleated Red Blood Cells 0.2 % Sodium Level 141 mmol/L (136-145) Potassium Level 3.6 mmol/L (3.5-5.1) Chloride Level 104 mmol/L (98-107) Carbon Dioxide Level 28 mmol/L (20-31) Anion Gap 9 (5-15) Blood Urea Nitrogen 16 mg/dL (9-23) Creatinine 0.68 mg/dL (0.550-1.02) Glomerular Filtration Rate Calc 96 mL/min (>90) BUN/Creatinine Ratio 23.5 (10.0-20.0) Serum Glucose 124 mg/dL (74-106) Calcium Level 9.0 mg/dL (8.7-10.4) Total Bilirubin 0.3 mg/dL (0.2-1.0) Aspartate Amino Transferase (AST) 14 U/L (13-40) Alanine Aminotransferase (ALT) 14 U/L (7-40) Alkaline Phosphatase 91 U/L (46-116) Total Protein 6.5 g/dL (5.7-8.2) Albumin 3.8 g/dL (3.2-4.8) D-Dimer, Quantitative 0.34 mg/L FEU (0.0-0.49) Hemoglobin A1c 6.6 % A1C (<5.7) Triglycerides Level 88 mg/dL (< 150) Cholesterol Level 156 mg/dL (< 200) LDL Cholesterol 87 mg/dL (< 100) HDL Cholesterol 58 mg/dL (40-59) Test 12/30/24 09:16 12/30/24 08:30 Urine Color Light-yellow (Yellow) Urine Clarity Clear (Clear) Urine pH 6.0 (5.0-9.0) Urine Specific [place] 1.013 (1.001-1.035) Urine Protein Negative (Negative) Urine Ketones Negative (Negative) Urine Blood Negative /uL (Negative) Urine Nitrite Negative (Negative) Urine Bilirubin Negative (Negative) Urine Urobilinogen Normal mg/dL (Negative) Urine Leukocyte Esterase Trace /uL (Negative) Urine RBC 1 /hpf (0 - 4) Urine Microscopic WBC 7 /HPF (0-5) Urine Squamous Epithelial Cells Few /hpf (<5) Urine Bacteria None seen /hpf (None Seen) Urine Glucose Normal mg/dL (Normal) Troponin I High Sensitivity 35 ng/L (</=34) Other Laboratory Tests 01/03/25 05:44 Final Diagnosis/Problems List Acute chest pains Elevated troponins a. myocardial strain Uncontrolled Hypertension Fairly well controlled NIDDM Pulmonary Hypertension Discharge Disposition: Home Discharge Instruct/Medications Diet: Consistent carbohydrate, Cardiac 2g Na,low cholest Diet comment: 1800 richie ADA low Na 2 g Activity: Light activity Follow Up/Referral: Dr. Charles in 5 dqys Medications: refer Disc. reconcillation Scheduled Aripiprazole (Aripiprazole), 1 TAB PO DAILY, (Reported) Betamethasone Dipropionate (Betamethasone Dipropionat), 1 APPLIC TD BID, (Reported) Betamethasone Dipropionate (Betamethasone Dipropionat), 1 APPLIC TOP DAILY Cefuroxime Axetil (Cefuroxime Axetil), 1 TAB PO BID Celecoxib (Celebrex), 200 MG PO HS, (Reported) Clopidogrel Bisulfate (Clopidogrel), 75 MG PO DAILY, (Reported) Duloxetine HCl (Duloxetine HCl), 30 MG PO DAILY, (Reported) Empagliflozin (Jardiance), 10 MG PO DAILY, (Reported) Escitalopram Oxalate (Escitalopram Oxalate), 1 TAB PO DAILY, (Reported) Metformin Hydrochloride (Metformin Hcl Er), 1 TAB PO DAILY, (Reported) Metoprolol Succinate (Metoprolol Succinate Er), 50 MG PO DAILY, (Reported) Multiple Vitamin (Multivitamins), 1 TAB PO DAILY, (Reported) Mupirocin Calcium (Topical) (Mupirocin), 1 APPLIC TOP BID, (Reported) Oxybutynin Chloride (Oxybutynin Chloride), 10 MG PO DAILY, (Reported) Pantoprazole Sodium Sesquihydr (Pantoprazole Sodium), 40 MG PO QAM, (Reported) Prednisone (Prednisone), 10 MG PO BID Rosuvastatin Calcium (Crestor), 1 TAB PO DAILY, (Reported) Sildenafil Citrate (Revatio), 20 MG PO TID@08,14,20 Tizanidine Hydrochloride (Tizanidine Hcl), 4 MG PO BID, (Reported) Valsartan (Valsartan), 160 MG PO DAILY Valsartan-Hydrochlorothiazide (Diovan Hct), 1 TAB PO DAILY, (Reported) Scheduled PRN Albuterol Sulfate (Ventolin Mdi), 2 PUFF IN Q6HPRN PRN for SHORTNESS OF BREATH, (Reported) Albuterol Sulfate (Ventolin), 2.5 MG NEB Q4HPRN PRN Docusate Sodium (Docqlace), 100 MG PO DAILY PRN for FOR CONSTIPATION, (Reported) Oxycodone HCl (Oxycodone Hydrochloride), 20 MG PO Q8HPRN PRN for PAIN SCALE 7 THRU 10, (Reported) Discharge Statement: "Patient was advised to return to the ER or call 911 if any headaches, dizziness, shortness of breath, chest pain, abdominal pain, bleeding, fevers, or worsening of medical condition. Patient was counseled about treatment plan, medications, possible side effects, patientverbalized understanding. All questions were answered to the best of my ability. This discharge took greater then 30 minutes in planning, reviewing documentation, counseling the patient, and discussing with other team members." ASSESSMENT ASSESSMENT Assessment Acute chest pains Elevated troponins a. myocardial strain Uncontrolled Hypertension Fairly well controlled NIDDM Pulmonary Hypertension SULY CHARLES MD Jan 04, 2025 12:31
--- NOTE | 2025-01-04 12:31 | DVHPN2 ---
Progress Note - Dictate Subjective Pt is seen Noted uncontrolled hypertension Recommended higher dose of valsartan 160 mg p.o. b.i.d. Recommended clonidine as of capital p.r.n. antihypertensive Reviewed 2D echo report Place patient on Viagra which she is tolerating well Overnight events are reviewed through medical chart and case discussion with patient's assigned RN while making rounds on patient on the day of service low-salt vital signs Vital Sign Date Time Temp Pulse Resp B/P (MAP) Pulse Ox O2 Delivery O2 Flow Rate FiO2 01/04/25 12:04 66 20 168/85 01/04/25 09:00 98.0 98 98.0 01/04/25 08:00 Room Air* 0 21 Total Intake and Output 01/03/25 01/03/25 01/04/25 15:00 23:00 07:00 Intake Total 600 ml 480 ml Balance 600 ml 480 ml medications Current Medications Medications Dose Ordered Sig/Kitty Route Start Time Stop Time Status Last Admin Dose Admin Nitroglycerin 0.4 mg Q5MINP PRN SL 12/30/24 07:30 Morphine Sulfate 2 mg Q30M PRN IV 12/30/24 07:30 Albuterol 2.5 mg Q4HPRN PRN NEB 12/30/24 07:30 01/03/25 23:09 2.5 MG Betamethasone Dipropion Augmented 1 applic DAILY TOP 12/30/24 10:01/04/25 10:00 1 APPLIC Docusate Sodium 100 mg DAILY PRN PO 12/30/24 07:30 01/04/25 10:27 100 MG Duloxetine HCl 30 mg DAILY PO 12/30/24 10:00 01/04/25 10:27 30 MG Empaglifozin 10 mg DAILY PO 12/30/24 10:00 01/04/25 10:28 10 MG Metoprolol Succinate 50 mg DAILY PO 12/30/24 10:00 01/04/25 10:00 50 MG Multivitamins 1 tab DAILY PO 12/30/24 10:00 01/04/25 10:29 1 TAB Oxybutynin Chloride 10 mg DAILY PO 12/30/24 10:00 01/04/25 10:00 10 MG Pantoprazole Sodium 40 mg QAM PO 12/31/24 07:00 01/04/25 06:24 40 MG Hydrocortisone Sodium Succinate 50 mg Q6HR IV 12/30/24 12:00 01/04/25 06:24 50 MG Ketorolac Tromethamine 30 mg Q8HR IV 12/30/24 14:00 01/04/25 13:59 01/04/25 06:22 30 MG Insulin Human Lispro AC SC 12/30/24 11:30 01/04/25 06:23 2 UNITS Insulin Human Lispro HS SC 12/30/24 22:00 01/03/25 22:15 4 UNITS Hydromorphone HCl 0.8 mg Q4HP PRN IV 12/30/24 07:45 01/04/25 12:04 0.8 MG Ceftriaxone Sodium 50 ml @ 100 mls/hr DAILY IV 12/30/24 10:00 01/04/25 10:00 100 MLS/HR Gabapentin 200 mg TID PO 12/30/24 22:00 01/04/25 06:24 200 MG Patient Own Medication 10 DAILY PO 12/31/24 10:00 01/04/25 10:00 10 Clopidogrel Bisulfate 75 mg DAILY PO 12/31/24 14:00 01/04/25 10:27 75 MG Enoxaparin Sodium 50 mg Q12HR SC 12/30/24 22:00 01/04/25 10:00 50 MG Sildenafil Citrate 20 mg TID@08,14,20 PO 01/03/25 08:00 01/04/25 08:00 20 MG Valsartan 160 mg BID PO 01/03/25 22:00 01/04/25 10:30 160 MG Clonidine HCl 0.2 mg Q4HP PRN PO 01/03/25 20:30 01/03/25 21:36 0.2 MG Clonidine HCl 0.1 mg UD PRN PO 01/04/25 00:00 objective Physical Exam General appearance: Well-developed, morbidly obese middle-aged AA female Appears in discomfort due to chest pains, SOB Head: Normocephalic nontraumatic Eyes: EOMI, AMBAR, sclera nonicteric, conjunctive- pale ENT: Mild bilateral nasal congestion, bilateral TM mildly hyperemic NSL bilateral symmetrical, oral mucosa dry +2 Neck: Supple, carotid upstroke +2, trachea R off midline, JVD 1 cm No stridor, no goiter, no thyroid or lymph node enlargement No use of accessory muscles Chest: Emphysema, Bilateral symmetrical expansions of anterior wall, Costochondral tenderness at 6, 7, 8 ICS Breasts: I exam - Bilateral symmetrical, Lungs: clear breath sounds all over except reduced at bases A few late inspiratory rales at L lower base present CVS: PMI- 1 cm lateral to L MCL in fifth ICS , S1- S2 NSR no S3 GI: Abdomen soft, obese, bowel sounds normoactive No focal tenderness, no rebound tenderness No hepatosplenomegaly, no mass no hernia , : No CVA tenderness, no bladder mass palpable, genitalia-NE SKIN: Turgor -dry, color pale, no rash, no icterus, Multiple scar of scabbed lesions No varicosity EXTs: No edema, color pink, no rash, no ecchymosis distal pulses +2 capillary refill <2 seconds, Scars of well healed scabbed lesions JOINTS; reduced range of motion BACK: No apparent lumbosacral spinal muscle tenderness, LYMPH NODES: No cervical, axillary or inguinal lymph nodes Neuro: Awake alert oriented 4, coherent, all cognitives- intact No pronator drift, no focal motor deficit, Changes of DPN, DTR +2, gait steady PSYCH: Affect mildly depressed-denies suicidal ideation laboratory and microbiology Laboratory Tests 01/03/25 05:44 Test 01/03/25 05:44 Range/Units Serum Glucose 124 H 74-106 mg/dL Assessment/Plan Uncontrolled hypertension Acute chest pains Treatment plans Increase dose of valsartan 160 mg p.o. b.i.d. Add clonidine Continue metoprolol Dietary Evaluation Review Recommendations by RD: Dietary education by RD Comments: 1) Add cardiac restriction to 60g CCHO diet 2) Refer to outpatient RD for weight management 3) Follow-up with cardiology and pulmonology 4) Continue to monitor I&O, labs, and skin integrity Expected Outcomes/Goals: 1) appetite and labs to improve 2) gradual wt loss 3) f/u in 3-5 days SULY CARDOZO MD Jan 04, 2025 12:31
--- NOTE | 2025-01-06 08:54 | ECG ---
[facility] Test Date: 2024-12-30 Test Time: 07:02:26 Pat Name: CANDELARIA HOOVER Department: [facility] ED Patient ID: [facility]-[id number] Room: [facility]7T B Gender: F Cryptologist: BUFFY : 1960 Requested By: EMERGENCY EMERGENCY Order Number: [id number] Reading MD: Ruslan Mayo Measurements Intervals [place] Rate: 67 P: 0 RI: 0 QRS: 48 QRSD: 96 T: 107 QT: 476 QTc: 503 Interpretive Statements Atrial fibrillation Probable anteroseptal infarct, recent Lateral leads are also involved Prolonged QT interval Electronically Signed On 01-06-2025 9:03:53 PDT by Ruslan Mayo Please click the below link to view image of tracing.
--- NOTE | 2025-01-06 12:12 | ECG ---
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
== END 2025-01-04 17:10 | disposition home or self-care (01) | DRG 303 ==
LOC: ER 06:06 → EDBD 06:06 → OVERFLOW 07:20 → TELE-WESTW 22:24
PROVIDERS: ADMIT Specialist; ATTEND Specialist
DX: I25.118 Atherosclerotic heart disease of native coronary artery with other forms of angina pectoris (principal); E66.2 Morbid (severe) obesity with alveolar hypoventilation; E11.9 Type 2 diabetes mellitus without complications; F31.9 Bipolar disorder, unspecified; I11.9 Hypertensive heart disease without heart failure; I27.20 Pulmonary hypertension, unspecified; Z96.642 Presence of left artificial hip joint; J44.9 Chronic obstructive pulmonary disease, unspecified; E78.00 Pure hypercholesterolemia, unspecified; K21.9 Gastro-esophageal reflux disease without esophagitis; M79.7 Fibromyalgia; Z95.5 Presence of coronary angioplasty implant and graft; Z83.3 Family history of diabetes mellitus; Z82.49 Family history of ischemic heart disease and other diseases of the circulatory system; I25.2 Old myocardial infarction; Z88.3 Allergy status to other anti-infective agents; Z88.8 Allergy status to other drugs, medicaments and biological substances; Z90.710 Acquired absence of both cervix and uterus; Z86.73 Personal history of transient ischemic attack (TIA), and cerebral infarction without residual deficits; Z79.899 Other long term (current) drug therapy; Z79.84 Long term (current) use of oral hypoglycemic drugs; Z79.82 Long term (current) use of aspirin; Z68.37 Body mass index [BMI] 37.0-37.9, adult; Z87.891 Personal history of nicotine dependence; Z87.440 Personal history of urinary (tract) infections
CPT/HCPCS: 36415; 71045; 71046; 80053; 80061; 81001; 82962; 83036; 84484; 85025; 85379; 93005; 93306; 94640; 97110; 97116; 97163; G0378; J1815; J1885; J2405

== ENCOUNTER 2025-01-15 21:38 | Inpatient (IN) | payer MEDICARE, MEDICAID ==
[~2025-01-15] VITALS: Ht 165.1 cm; Wt 104.7 kg
[~2025-01-15 21:38] MED LIST changes: -CEFU500T43 PO; +SILD20TA PO
[2025-01-15 22:00] VITALS: BP 138/62; PULSE 86; RESP 17; TEMP 97.6; O2SAT 95
[2025-01-15] MEDS ORDERED: MORPHINE SULFATE INJ 2 MG/ml SYRG IV PRN (22:00)
[2025-01-15] MEDS ORDERED: CELECOXIB 200 MG PO SCH (22:00)
[2025-01-15] MEDS ORDERED: NITROGLYCERIN 0.4 MG SL TAB SL PRN (22:00)
[2025-01-15] MEDS ORDERED: ALBUTEROL SULF 2.5 MG/0.5ML(0.5%) NEB SOLN NEB PRN (22:00)
[2025-01-15] MEDS ORDERED: BETAMETHASONE DIPROPIONATE TD SCH (22:00)
--- NOTE | 2025-01-15 22:29 | DVHHP2 ---
Admitting Diagnosis: History of Present Illness History of Present Illness Vital Signs Vital Sign Date Time Temp Pulse Resp B/P (MAP) Pulse Ox O2 Delivery O2 Flow Rate FiO2 09/13/23 21:00 98.8 71 18 106/41 (62) 97 09/13/23 18:51 99.4 80 20 122/57 (78) 92 Labs Test 09/12/2023 21:58 09/13/2023 01:00 09/13/2023 03:00 Range/Units Troponin I High Sensitivity 127 *H 129 H 128 H </=34 ng/L Complete blood count 09/12/20232157 White Blood Count 7.6 4.4-10.8 10^3/uL Red Blood Count 4.26 4.0-5.20 10^6/uL Hemoglobin 10.2 12.2-16.2 g/dL Hematocrit 33 36.0-46.0 % Mean Corpuscular Volume 77.5 80.0-100.0 fL Mean Corpuscular Hemoglobin 23.9 28.0-32.0 pg Mean Corpuscular Hemoglobin Concent 30-8 32.0-36.0 g/dL Red Cell Distribution Width 15.9 H 11.8-14.3 % Platelet Count 305 140-450 10^3/uL Mean Platelet Volume 7.4 6.9-10.8 fL Neutrophils (%) (Auto) 57 37.0-80.0 % Lymphocytes (%) (Auto) 25 10.0-50.0 % Monocytes (%) (Auto) 13 H 0.0-12.0 % Eosinophils (%) (Auto) 3.2 H 0.0-7.0 % Basophils (%) (Auto) 0.9 0.0-2.0 % Neutrophils # (Auto) 4.4 1.6-8.6 10 ^3/uL Lymphocytes # (Auto) 1.9 0.4-5.4 10 ^3/uL Monocytes # (Auto) 1.1 0-1.3 10 ^3/uL Eosinophils # (Auto) 0.2 0-0.8 10 ^3/uL Basophils # (Auto) 0.1 0-0.2 10 ^3/uL Nucleated Red Blood Cells 0.1 % Comprehensive metabolic panel 09/12/20232157 Sodium Level 134 136-145 mmol/L Potassium Level 3.5 3.5-5.1 mmol/L Chloride Level 103 98-107 mmol/L Carbon Dioxide Level 28 20-30 mmol/L Anion Gap 3 5-15 Blood Urea Nitrogen 14 9-23 mg/dL Creatinine 0.78 0.550-1.02mg/dL Glomerular Filtration Rate Calc 87 >90 mL/min BUN/Creatinine Ratio 18.4 10.0-20.0 Serum Glucose 97 74-106 mg/dL Calcium Level 9.3 8.7-10.4 mg/dL Phosphorus Level 3.1 2.4-5.1 mg/dL Magnesium Level 1.9 1.6-2.6 mg/dL Total Bilirubin 0.3 0.2-1.0 mg/dL Aspartate Amino Transferase (AST) 9 13-40 U/L Alanine Aminotransferase (ALT) <9 7-40 U/L Alkaline Phosphatase 77 46-116 U/L Total Protein 7 5.7-8.2 g/dL Albumin 3.8 3.2-4.8 g/dL Results Labs Test 09/16/23 05:44 09/15/23 18:10 09/15/23 13:49 09/13/23 05:41 Range/Units White Blood Count 6.7 4.4-10.8 10^3/uL Red Blood Count 4.38 4.0-5.20 10^6/uL Hemoglobin 10.4 L 12.2-16.2 g/dL Hematocrit 33.2 L 36.0-46.0 % Mean Corpuscular Volume 75.9 L 80.0-100.0 fL Mean Corpuscular Hemoglobin 23.7 L 28.0-32.0 pg Mean Corpuscular Hemoglobin Concent 31.3 L 32.0-36.0 g/dL Red Cell Distribution Width 16.1 H 11.8-14.3 % Platelet Count 322 140-450 10^3/uL Mean Platelet Volume 7.5 6.9-10.8 fL Neutrophils (%) (Auto) 58.3 37.0-80.0 % Lymphocytes (%) (Auto) 21.3 10.0-50.0 % Monocytes (%) (Auto) 14.9 H 0.0-12.0 % Eosinophils (%) (Auto) 4.6 0.0-7.0 % Basophils (%) (Auto) 0.9 0.0-2.0 % Neutrophils # (Auto) 3.9 1.6-8.6 10 ^3/uL Lymphocytes # (Auto) 1.4 0.4-5.4 10 ^3/uL Monocytes # (Auto) 1.0 0-1.3 10 ^3/uL Eosinophils # (Auto) 0.3 0-0.8 10 ^3/uL Basophils # (Auto) 0.1 0-0.2 10 ^3/uL Nucleated Red Blood Cells 0.0 % Sodium Level 139 136-145 mmol/L Potassium Level 4.0 3.5-5.1 mmol/L Chloride Level 107 98-107 mmol/L Carbon Dioxide Level 26 20-30 mmol/L Anion Gap 6 5-15 Blood Urea Nitrogen 16 9-23 mg/dL Creatinine 0.59 0.550-1.02 mg/dL Glomerular Filtration Rate Calc 100 >90 mL/min BUN/Creatinine Ratio 27.1 H 10.0-20.0 Serum Glucose 85 74-106 mg/dL Calcium Level 9.0 8.7-10.4 mg/dL Total Bilirubin 0.4 0.2-1.0 mg/dL Aspartate Amino Transferase (AST) 34 13-40 U/L Alanine Aminotransferase (ALT) 23 7-40 U/L Alkaline Phosphatase 85 46-116 U/L Total Protein 6.1 5.7-8.2 g/dL Albumin 3.0 L 3.2-4.8 g/dL Urine Color Yellow Yellow Urine Clarity Turbid H Clear Urine pH 6.0 5.0-9.0 Urine Specific [place] 1.024 1.001-1.035 Urine Protein Trace H Negative Urine Ketones Negative Negative Urine Blood 2+ H Negative /uL Urine Nitrite Negative Negative Urine Bilirubin Negative Negative Urine Urobilinogen 2 H Negative mg/dL Urine Leukocyte Esterase 2+ Negative /uL Urine RBC 21 0 - 4 /hpf Urine WBC 65 0 - 5 /hpf Urine Squamous Epithelial Cells Few <5 /hpf Urine Bacteria None seen None Seen /hpf Urine Mucus Few None Seen Urine Yeast (Budding) Occasional None Seen /hpf Urine Glucose 4+ H Normal mg/dL POC Glucose 94 70-106 mg/dl Hemoglobin A1c 6.5 H <5.7 % A1C Triglycerides Level 93 < 150 mg/dL Cholesterol Level 147 < 200 mg/dL LDL Cholesterol 105 H < 100 mg/dL HDL Cholesterol 32 L 40-59 mg/dL Test 6/21/24 03:01 09/12/23 21:58 Range/Units Troponin I High Sensitivity 128 *H </=34 ng/L D-Dimer, Quantitative 1.36 H 0.0-0.49 mg/L FEU Phosphorus Level 3.1 2.4-5.1 mg/dL Magnesium Level 1.9 1.6-2.6 mg/dL C-Reactive Protein High Sensitivity 3.80 H <1.0 mg/dL Thyroid Stimulating Hormone (TSH) 0.93 0.55-4.78 uIU/mL Microbiology Date/Time Source Procedure Growth Status 09/15/23 18:10 Voided Urine Urine Culture - Final Complete Primary Diagnosis Acute subclinical pyelonephritis Acute asthmatic bronchitis Acute exacerbation of COPD Acute chest pain-rule out NM Admitting Diagnosis: Acute subclinical pyelonephritis Acute asthmatic bronchitis Acute exacerbation of COPD Acute chest pain-rule out NM Moderately severe hypovolemia Acute flare-up of fibromyalgia Admitting Diagnosis: Acute subclinical pyelonephritis Acute asthmatic bronchitis Acute exacerbation of COPD Acute chest pains-rule out NM Moderately severe hypovolemia Acute flareup of fibromyalgia 2' Diagnosis/Comorbidities Morbid obesity in adult with current BMI >40 to 45 kg/m Osteoarthritis of bilateral hips and knees 2' Diagnosis/Comorbidities Hypercholesterolemia Well-controlled NIDDM Morbid obesity in adult with current BMI of 35-40 kg per m2 Osteoarthritis of bilateral hip Chronic narcotic dependence Comprehensive clinical assessment Ratna Otero 62-year-old middle-aged -[place] female is admitted with History of Present Illness 62 year-old middle-aged -[place] female with a known history of hypertension, NIDDM, hypercholesterolemia, obesity, CAD s/p NM and PTCA to RCA since 2007, and known history of fibromyalgia is directly admitted for Further eval and management of symptom complex of Flank pains, dysuria frequency of urination and low-grade fever with chills as well as symptoms of progressive worsening of upper and lower respiratory tract infection, nonproductive cough, wheezing and nonexertional L parasternal Pleuritic to pressure-like chest pains at level of 4-5 out of 10 x 3 days-worse with deep inspiration. She also reports to have generalized aches and pains for past 3 days. As per patient her symptoms have been worse despite her receiving oral antibiotics and Med-Neb treatments Onset/duration: x 3 days-worse 24 hour PROCESS CHEMIST Severity: Anterior chest pains Location: L parasternal Characteristic: Chest tightness, wheezing Referral:? To left shoulder Associated symptoms: Chest congestion shortness of breath wheezing Aggravated by: Deep inspiration, cough Alleviated by: Bronchodilator Med-Neb treatment Risk factors: COPD, obesity The patient was attended at my office on afternoon of day of admission She was noted to be generally weak, hypovolemic and symptomatic for Possible acute subclinical pyelonephritis, acute sinusitis, acute asthmatic bronchitis complicating into acute exacerbation of COPD and costochondral tenderness. Considering cardiac history and risk factors, I recommended patient to receive hospitalization on telemetry bed for further eval of her chest pains-rule out NM, IV antibiotics for UTI, upper and lower respiratory infections with bronchodilator Med-Neb treatment as well as pain management for acute flareup of fibromyalgia Past Medical History Past medical history records: Reviewed Cardiovascular history: Long history of hypertension complicated by hypertensive CAD Suffered acute NM and noted to have occlusive disease of RCA requiring PTCA followed by stent placement in the year 2007 Patient suffers chronic stable angina requiring multiple hospitalization She received multiple stress EKG test and angiographic study including last one in November 2021 Respiratory history: COPD, obesity hypoventilation syndrome Gastrointestinal history: GE reflux Genitourinary history: Recurrent UTI over the past 12 months Endocrine history: Fairly well-controlled NIDDM-hemoglobin A1c stays under 6.5% to 7% Currently on metformin Exogenous obesity-BMI 41 kg/m, verbally counseled to lose weight of 100 pounds through diet and exercise Hypercholesterolemia currently on Lipitor-and Ecotrin Neurology history: History of CVA with no residual focal deficit Musculoskeletal history: Severe osteoarthritis affecting hip and knees-followed by Dr. 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 History of smoking: Cigarettes: Never-admits to have exposure to the passive smoking History of smoking E cigarettes: Denies History of smoking marijuana: Denies History of drinking alcohol: Denies History of substance abuse: Denies Patient Family History: Cardiovascular disease G8 FATHER, Onset:25's - 30 Diabetes mellitus FHx: cancer G8 MOTHER, Onset:s - 40 Hypertension G8 MOTHER, Onset:30s - 40 G8 FATHER, Onset:30's - 40 Allergies: Coded Allergies: Benzalkonium Chloride (Verified Allergy, Unknown, 07/08/18) Dupilumab (Verified Allergy, Unknown, 05/30/24) Lisinopril (Verified Allergy, Unknown, 07/08/18) Sorbitan (Verified Allergy, Unknown, 05/30/24) Dexamethasone (Verified Adverse Reaction, Intermediate, burning feeling in veins, 10/15/24) Home Meds Active Scripts Sildenafil Citrate (Revatio) 20 Mg Tab, 20 MG PO TID@08,14,20 for 30 Days, #90 TAB Prov:SULY CARDOZO MD 01/04/25 Prednisone (Prednisone) 20 Mg Tab, 10 MG PO BID for 10 Days, MG Prov:SULY CARDOZO MD 10/19/24 Valsartan (Valsartan) 80 Mg Tab, 160 MG PO DAILY for 90 Days, #180 TAB Prov:SULY CARDOZO MD 07/14/24 Betamethasone Dipropionate (Betamethasone Dipropionat) 0.05 % Cre, 1 APPLIC TOP DAILY for 30 Days, #60 GM Prov:SULY CARDOZO MD 07/13/24 Albuterol Sulfate (Ventolin) 2.5 Mg/0.5 Ml Nb, 2.5 MG NEB Q4HPRN PRN for 50 Days, #100 ML 1 Refill Prov:SULY CARDOZO MD 01/20/22 Reported Medications Multiple Vitamin (Multivitamins) Tab, 1 TAB PO DAILY, #90 TAB 3 Refills 05/29/24 Celecoxib (Celebrex) 200 Mg Cap, 200 MG PO HS, CAP 05/29/24 Betamethasone Dipropionate (Betamethasone Dipropionat) 0.05 % Oin, 1 APPLIC TD BID 05/29/24 Duloxetine HCl (Duloxetine HCl) 30 Mg Cap, 30 MG PO DAILY 05/29/24 Tizanidine Hydrochloride (Tizanidine Hcl) 4 Mg Tab, 4 MG PO BID 05/29/24 Oxybutynin Chloride (Oxybutynin Chloride) 5 Mg Tab, 10 MG PO DAILY 05/29/24 Oxycodone HCl (Oxycodone Hydrochloride) 20 Mg Tab, 20 MG PO Q8HPRN PRN for PAIN SCALE 7 THRU 10 05/29/24 Valsartan-Hydrochlorothiazide (Diovan Hct) 160 /12.5 Tab, 1 TAB PO DAILY 05/15/23 Aripiprazole (Aripiprazole) 10 Mg Tab, 1 TAB PO DAILY 05/15/23 Metformin Hydrochloride (Metformin Hcl Er) 750 Mg Tab, 1 TAB PO DAILY, #90 TAB 3 Refills 05/12/23 Rosuvastatin Calcium (Crestor) 20 Mg Tab, 1 TAB PO DAILY for LOWER BAD CHOLESTEROL, #30 TAB 5 Refills 04/03/22 Pantoprazole Sodium Sesquihydr (Pantoprazole Sodium) 40 Mg Tab, 40 MG PO QAM for GERD, TAB PRIOR TO BREAKFAST PER PT SHOULD STILL BE ON THIS MEDICATION EVEN THOUGH NO P/UP HISTORY IN EXTERNAL MED 11/21/21 Empagliflozin (Jardiance) 10 Mg Tab, 10 MG PO DAILY for DIABETES, TAB 11/21/21 Escitalopram Oxalate (ESCITALOPRAM OXALATE) 20 Mg Tab, 1 TAB PO DAILY for DEPRESSION, #30 TAB 5 Refills 11/21/21 Metoprolol Succinate (Metoprolol Succinate Er) 50 Mg Tab, 50 MG PO DAILY for BLOOD PRESSURE NEW DISCHARGE MED IS METOPROLOL SUCC ER 25 MG BID, BUT PATIENT HAS NOT STARTED TAKING YET AND WOULD LIKE TO BE KEPT ON 50 MG DAILY 07/12/20 Mupirocin Calcium (Topical) (MUPIROCIN) 2 % Cre, 1 APPLIC TOP BID for Skin infection PER PATIENT'S HOME MED LIST: APPLY TOPICALLY TO OPEN WOUNDS BID PT USES 2 GRAMS BID 01/18/20 Docusate Sodium (DOCQLACE) 100 Mg Cap, 100 MG PO DAILY PRN for FOR CONSTIPATION, CAP 06/04/18 Albuterol Sulfate (VENTOLIN MDI) 90 Mcg Ih, 2 PUFF IN Q6HPRN PRN for SHORTNESS OF BREATH EXTERNAL MED HX SAYS Q4HR. PATIENT USES Q6HR PRN 06/04/18 Clopidogrel Bisulfate (CLOPIDOGREL) 75 Mg Tab, 75 MG PO DAILY 06/04/18 Current Medications Current Medications Medications (Trade) Dose Ordered Sig/Kitty Route PRN Reason Start Time Stop Time Status Last Admin Nitroglycerin (Ntrostat Sublingual) 0.4 mg Q5MINP PRN SL FOR CHEST PAIN 01/15/25 22:00 UNV Morphine Sulfate 2 mg Q30M PRN IV FOR CHEST PAIN 01/15/25 22:00 UNV Albuterol (Ventolin Hfa) 180 mcg Q6HPRN PRN IN SHORTNESS OF BREATH 01/15/25 22:00 UNV Albuterol (Ventolin Medneb) 2.5 mg Q4HPRN PRN NEB Severe WSOB 01/15/25 22:00 UNV Betamethasone Dipropion Augmented (Diprosone 0.05% Cream) 1 applic DAILY TOP 01/16/25 10:00 UNV Docusate Sodium (Colace Capsule) 100 mg DAILY PRN PO FOR CONSTIPATION 01/15/25 22:00 UNV Duloxetine HCl (Cymbalta Capsule) 30 mg DAILY PO 01/16/25 10:00 UNV Empaglifozin (Jardiance) 10 mg DAILY PO 01/16/25 10:00 UNV Metoprolol Succinate (Toprol Xl) 50 mg DAILY PO 01/16/25 10:00 UNV Multivitamins (Mvi Tab) 1 tab DAILY PO 01/16/25 10:00 UNV Oxybutynin Chloride (Ditropan Tablet) 10 mg DAILY PO 01/16/25 10:00 UNV Pantoprazole Sodium (Protonix Tablet) 40 mg QAM PO 01/16/25 07:00 UNV Sildenafil Citrate (Revatio) 20 mg TID@08,14,20 PO 01/16/25 08:00 UNV Patient Own Medication 1 tab DAILY PO 01/16/25 10:00 UNV Patient Own Medication 1 applic BID TD 01/15/25 22:00 UNV Patient Own Medication 200 mg HS PO 01/15/25 22:00 UNV Patient Own Medication 1 tab DAILY PO 01/16/25 10:00 UNV Patient Own Medication 1 tab DAILY PO 01/16/25 10:00 UNV Patient Own Medication 1 applic BID TOP 01/15/25 22:00 UNV Patient Own Medication 20 mg Q8HPRN PRN PO PAIN SCALE 7 THRU 10 01/15/25 22:00 UNV Patient Own Medication 10 mg BID PO 01/15/25 22:00 UNV Patient Own Medication 1 tab DAILY PO 01/16/25 10:00 UNV Patient Own Medication 4 mg BID PO 01/15/25 22:00 UNV Patient Own Medication 1 tab DAILY PO 01/16/25 10:00 UNV Valsartan (Diovan) 160 mg DAILY PO 01/16/25 10:00 UNV Review of Systems Constitutional: Reports generalized aches and pains low-grade fever, chills, denies weight loss HEENT: Reports symptoms of headache, nasal/maxillary sinus congestion, rhinorrhea, lacrimation Denies conjunctival pains, denies hearing or visual deficits NECK: No symptoms of neck pains or stiffness CHEST: Pleuritic chest pain, shortness of breath costochondral tenderness, hyperventilation RS: Reports symptoms of cough, chest congestion, wheezing, shortness of breath, pleurisy CVS: Reports symptoms of angina, shortness of breath, denies palpitation, : Reports heartburn, GE reflux no symptoms of abdominal pains, N/ V/D, melena : Reports symptoms of frequency, urgency, dysuria, hematuria BACK: Reports chronic back pains, radicular pains MS: Reports generalized aches and pains from fibromyalgia SKIN: Multiple scabbed wounds of upper and lower extremities EXTs: Multiple scabbed wounds no edema, no rash, no open wounds 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 appearance: Well-developed obese built middle-aged -[place] female appears to be hypovolemic, generally weak short of breath w/o NAD HEENT Head normocephalic nontraumatic, Eyes-EOMI, PERRLA, conjunctiva -pale, sclera nonicteric ENT-bilateral nasal congestion, hyperemia of TM, Rinnie's test positive, Tongue/mucous membranes dry NECK: Supple, trachea R off midline , carotid upstroke +2, JVD 1 cm, No thyroid or lymph node enlargement, no use of accessory muscles G-mmopb-ctgrpizcil muscle tenderness present, ROM at C-spine full CHEST: Emphysematous, costochondral tenderness Hypoventilation at bilateral bases RS: Clear breath sounds at anterior lung [place] A few late inspiratory rales and rhonchi present at posterior lung [place] Reduced breath sounds at bilateral bases CVS: PMI-2.5 cm lateral to L MCL line in the sixth ICS, S1-S2/A1-A2 normal sinus accentuated no gallop no murmur GI: Abdomen soft, obese +3, nontender, bowel sounds normoactive, no mass or hernia, no hepatosplenomegaly Rectal: Stool OB negative no mass normal sphincter tone Genitourinary: Normal genitalia, no discharge, no focal lesions Back: R CVA tenderness present, bilateral lumbosacral spinal muscle tenderness present Bilateral suprascapular point tenderness present Straight leg raising test negative EXTs: Wounds Bilateral upper extremities-multiple pigmented spots of varying geographic shapes due to dermatitis Pulses:Distal pulses +2, no rash, no edema, capillary refill instant, Feels peripherally warm Joints: Reduced ROM at bilateral hips and knee Neuro: Patient is awake alert oriented 3, affect depressed cognitive intact DTR +2, No focal motor deficit, changes of diabetic peripheral neuropathy, gait steady SEPSIS Sepsis Screen Physician Orders Admit (01/15/25 21:59) Nitroglycerin Sublingual (Ntrostat Subli (01/15/25 22:00) Morphine Sulfate Injection (01/15/25 22:00) Stat Ekg For Chest Pain (01/15/25:59) Notify Md Of Changes From Base (01/15/25 21:59) Business Operations Analyst For 24 Hours (01/15/25 21:59) Emergency Dysrhythmia Protocol (01/15/25:59) Rhythm Strips Once Every Shift (01/15/25 21:59) Oxygen By Nasal Cannula (01/15/25 21:59) Complete Blood Count (01/15/25 21:59) Complete Blood Count (01/16/25 07:00) Comprehensive Metabolic Panel (01/15/25 21:59) Comprehensive Metabolic Panel (01/16/25 07:00) D-Dimer (01/15/25 21:59) Hemoglobin A1c (01/16/25 07:00) Lipid Panel (01/16/25 07:00) Magnesium (01/15/25 21:59) Phosphorus (01/15/25 21:59) Urinalysis (01/15/25 21:59) Urine Bacterial Culture (01/15/25 21:59) Blood Culture (01/15/25 21:59) Chest Two Views Routine (01/15/25 21:59) C-Reactive Protein (01/15/25 21:59) Cardiac Diet-2gna,Lofat,Lochol (01/15/25 Lunch) Call Md With Any Problems (01/15/25 21:59) Cspine Comp 5 View (01/15/25 21:59) Lumbar Spine 4+ View (01/15/25 21:59) R Hip Complete Xray (01/15/25 21:59) Albuterol Inhaler (Ventolin Hfa) (01/15/25 22:00) Albuterol Medneb (Ventolin Medneb) (01/15/25 22:00) Betamethasone 0.05% Topical Cr (Diproson (01/16/25 10:00) Docusate Sodium Capsule (Colace Capsule) (01/15/25 22:00) Duloxetine Hcl Capsule (Cymbalta Capsule (01/16/25 10:00) Empagliflozin (Jardiance) (01/16/25 10:00) Metoprolol Xl Succinate (Toprol Xl) (01/16/25 10:00) Multiple Vitamin Tablet (Mvi Tab) (01/16/25 10:00) Oxybutynin Chloride Tablet (Ditropan Tab (01/16/25 10:00) Pantoprazole Tablet (Protonix Tablet) (01/16/25 07:00) Sildenafil Citrate (Revatio) (01/16/25 08:00) (Nf) Aripiprazole (01/16/25 10:00) (Nf) Betamethasone Dipropionate (Betamet (01/15/25 22:00) (Nf) Celecoxib (Celebrex) (01/15/25 22:00) (Nf) Escitalopram Oxalate (01/16/25 10:00) (Nf) Metformin Hydrochloride (Metformin (01/16/25 10:00) (Nf) Mupirocin Calcium (Topical) (Mupiro (01/15/25 22:00) (Nf) Oxycodone Hcl (Oxycodone Hydrochlor (01/15/25 22:00) (Nf) Prednisone (01/15/25 22:00) (Nf) Rosuvastatin Calcium (Crestor) (01/16/25 10:00) (Nf) Tizanidine Hydrochloride (Tizanidin (01/15/25 22:00) (Nf) Valsartan-Hydrochlorothiazide (Diov (01/16/25 10:00) Valsartan (Diovan) (01/16/25 10:00) Glucose Blood (Accu-Chek Comfort Curve T (01/16/25 07:00) Insulin Lispro (Human) (Humalog) (01/16/25 07:00) Insulin Lispro (Human) (Humalog) (01/16/25 22:00) Clonidine Hcl Tablet (Catapres Tablet) (01/15/25 22:15) Ketorolac Injection (Toradol Injection) (01/15/25 22:15) Ketorolac Injection (Toradol Injection) (01/15/25 22:15) Hydromorphone Injection (Dilaudid Inject (01/15/25 22:15) 2' Diagnosis/Comorbidities (1) Acute subclinical pyelonephritis (2) Acute sinusitis (3) Acute asthmatic bronchitis complicated by Acute flare up of COPD Failure to oral antibiotics (4) Acute chest pain rule out NM a. Chronic stable angina Cardiac risk factors-diabetes hypertension hypercholesterolemia, obesity and s/p PTCA Status: Acute Present at the time of admission: Yes Problem specific AP * Clinical presentation suggestive of acute subclinical pyelonephritis * Recommended patient to receive urine/blood cultures and IV antibiotics * Clinical presentation is also supportive of acute sinusitis, early otitis Media/acute asthmatic bronchitis/flareup of COPD * She failed to respond to outpatient measures-oral and IV antibiotics * Recommended sputum and blood cultures, IV Rocephin as a broad-spectrum and beta agonist bronchodilator med-Neb treatments and IV Solu-Medrol * Will monitor her chest pains from chest wall since she has costochondral tenderness * For her given extensive cardiac history and risk factors, will monitor her for chest pain Rule out NM. Note worthy that the patient has received multiple cardiac evaluations Including last coronary angiogram in late summer 2021 at [facility] She was noted to have open stent in RCA and nonocclusive CAD in the res t of the coronaries * Recommended her to receive serial EKGs and enzymes * Recommended sublingual nitroglycerin, morphine, Ecotrin cholesterol-lowering agents and beta-blockers (5) Acute flare-up of fibromyalgia affecting multiple sites Status: Acute on chronic Assessment & Plan: Noted acute flareup of fibromyalgia possibly triggered by concurrent Lower respiratory infection * Symptomatic for generalized aches and pains including chest pains, back pains Recommended patient to receive nonsteroidals and narcotic analgesics (4) Hypovolemia Status: Acute Assessment & Plan: The patient is noted to have hypovolemia on physical and Hypovolemic hyperchloremia, high BUN/creatinine ratio near 20: 1 on lab exam Recommended patient IV hydration with hypotonic saline (5) Hypercholesterolemia Status: Chronic Assessment & Plan: * Known history of hypercholesterolemia . * Risk factor for coronary artery disease * Recommended patient to receive low-cholesterol diet and Lipitor Plavix Side effects of medications are discussed with the patient (6) Well-controlled hypertension Status: Chronic Assessment & Plan: * Known history of hypertension for many years * Risk factors for coronary artery disease * Her hypertension remains under good control with help of ARBS, Metoprolol (7) Well controlled diabetes mellitus Status: Chronic Assessment & Plan: Her diabetes remains under fair control. Her hemoglobin A1c Runs between 6.5 to 7% Etiologic causes for uncontrolled NIDDM a. Obesity and insulin resistance b. Noncompliance with diet and medications c stress from acute NM, URI Recommended patient a, 1800-calorie ADA diet b. Combination of basal and short acting insulin therapy c. Intentional weight loss of 100 lbs is through diet and exercise d. Monitoring hemoglobin A1c, CMP every 3 months lipid panel every 6 months 24-hour urine check for microalbuminuria on annual basis e. Recommended annual physical exam by dentist, river rafting guide and eye doctor f. Report to podiatry for any sign of inflammation or injury to foot (7) Morbid obesity in adult with current BMI >40 to 45 kg/m Status: Chronic Assessment & Plan: According to patient's current height weight and height, Her current BMI is high at 41.5 kg/m reflecting Her current body weight exceeds by 85 LBS to ideal body weight Informed patient about complications of obesity which includes but not limited to a. Hypoxia, cardiac arrhythmias, pulmonary embolism, embolic CVA, sudden cardiac The patient is recommended weight loss of 80 pounds through Low-carb low calorie 1800-calorie diet and aerobic exercises as tolerated Recommended patient to follow a. daily weight, b. ADA 1800-calorie diet-40% calories from breakfast 30% calories from lunch and dinner each, avoid carbonated soda c. Recommended aerobic exercises like walking 1-5 miles per day, riding on a stationary bike for 1-2 hours (8) Exogenous dermatitis Status: Chronic Assessment & Plan: Status: Preexistent The patient will be treated with help of local application of betamethasone over dermatitis area, and Bactroban application or open wounds female to Plan T Plan Treatment plans as of today Admit to telemetry floor obtain CBC CMP, chest x-ray EKG Obtain sputum, urine and blood cultures PRN temp >101.5 Place patient on broad-spectrum IV antibiotics and bronchodilator Med-Neb treatment Careful IV hydration Obtain serial EKGs and enzymes Place patient on NTG, morphine Place patient on metoprolol XL, Procardia, and Lipitor Place patient on Plavix subcutaneous Lovenox Continue metoprolol 50 mg p.o. twice daily Consider cardiology evaluation if required Reconcile home medications VTE the precautions Local application of betamethasone and Bactroban over bilateral upper extremity Reconcile home medication Referred to physical therapy The patient and her spouse have been well informed by me about 1. Admission diagnosis, treatment plans, side effects of medications, course of the disease and fair prognosis 2. All patient's and concerns raised by patient /her spouse are satisfactorily addressed by me SULY CARDOZO MD Jan 15, 2025 22:28
[2025-01-15 22:45] LABS: Nucleated Red Blood Cells % 0.0 %
[2025-01-15 22:47] LABS: Hematocrit 36.9 % (36.0-46.0); Hemoglobin 11.9 g/dL (12.2-16.2); Mean Corpuscular Hemoglobin 24.8 pg (28.0-32.0); Mean Corpuscular Volume 77.1 fL (80.0-100.0)
[2025-01-15 22:48] VITALS: O2SAT 97
[2025-01-15 22:58] LABS: Alanine Aminotransferase 17 U/L (7-40); Anion Gap 11 (5-15); BUN/Creatinine Ratio 15.6 (10.0-20.0); Blood Urea Nitrogen 12 mg/dL (9-23); Calcium 9.3 mg/dL (8.7-10.4); Carbon Dioxide 24 mmol/L (20-31); Magnesium 1.6 mg/dL (1.6-2.6); Potassium 3.8 mmol/L (3.5-5.1); Sodium 143 mmol/L (136-145); Total Protein 7.6 g/dL (5.7-8.2)
[2025-01-15 22:59] LABS: Albumin 4.4 g/dL (3.2-4.8); Bilirubin, Total 0.4 mg/dL (0.2-1.0)
[2025-01-15 23:10] LABS: Alkaline Phosphatase 125 U/L (46-116); Chloride 108 mmol/L (98-107); Glucose 119 mg/dL (74-106)
[2025-01-16] VITALS (13 sets, daily range): BP systolic 122–146; BP diastolic 66–73; PULSE 62–86; RESP 12–19; TEMP 97.2–98.3; O2SAT 94–100
[2025-01-16] MEDS: KETOROLAC TROMETH 30 MG/ML 1ML VIAL IV ONE (00:16)
[2025-01-16] MEDS: HYDROmorphone HCL 2 MG/ML VL/or syr IV PRN (00:18)
[2025-01-16] MEDS: HYDROCORTISONE SOD SUCC 100 MG/2ML INJ VIAL IV SCH (06:00)
[2025-01-16] MEDS: KETOROLAC TROMETH 30 MG/ML 1ML VIAL IV PRN (06:25)
[2025-01-16] MEDS: INSULIN LISPRO (HUMAN) 100 UNITS/ML ML SC SCH ×2 (06:33→20:41)
[2025-01-16] MEDS: PANTOPRAZOLE 40 MG TAB PO SCH (06:33)
[2025-01-16] MEDS: ACCU-CHEK COMFORT CURVE STRIP VI SCH (06:34)
[2025-01-16 07:22] LABS: Hematocrit 36.9 % (36.0-46.0); Hemoglobin 11.6 g/dL (12.2-16.2); Mean Corpuscular Hemoglobin 24.6 pg (28.0-32.0); Mean Corpuscular Volume 78.1 fL (80.0-100.0); Nucleated Red Blood Cells % 0.1 %
[2025-01-16 07:45] LABS: Alanine Aminotransferase 16 U/L (7-40); Albumin 4.0 g/dL (3.2-4.8); Anion Gap 9 (5-15); BUN/Creatinine Ratio 13.2 (10.0-20.0); Calcium 8.8 mg/dL (8.7-10.4); Carbon Dioxide 26 mmol/L (20-31); Potassium 3.8 mmol/L (3.5-5.1); Sodium 142 mmol/L (136-145); Total Protein 7.0 g/dL (5.7-8.2); Triglycerides 85 mg/dL (< 150)
[2025-01-16 07:46] LABS: Bilirubin, Total 0.4 mg/dL (0.2-1.0); Cholesterol 169 mg/dL (< 200); HDL Cholesterol 51 mg/dL (40-59)
[2025-01-16 07:47] LABS: Alkaline Phosphatase 117 U/L (46-116); Blood Urea Nitrogen 9 mg/dL (9-23); Chloride 107 mmol/L (98-107); Glucose 141 mg/dL (74-106)
[2025-01-16] MEDS: ARIPIPRAZOLE 10 MG PO SCH (10:00)
[2025-01-16] MEDS: MUPIROCIN 2% OINT 15gm or 22gm TOP SCH (10:00)
[2025-01-16] MEDS ORDERED: METFORMIN HYDROCHLORIDE PO SCH (10:00)
[2025-01-16] MEDS ORDERED: VALSARTAN HYDROCHLOROTHIAZIDE PO SCH (10:00)
[2025-01-16] MEDS: VALSARTAN 80 MG TAB PO SCH (10:06)
[2025-01-16] MEDS: MULTIPLE VITAMIN TAB PO SCH (10:06)
--- NOTE | 2025-01-16 10:06 | DVH ---
EXAM: XY CSPINE COMP 5 VIEW HISTORY: DJD COMPARISON: None TECHNIQUE: AP, lateral, and odontoid views of the cervical spine were performed. FINDINGS: Prevertebral soft tissues are within normal limits No acute fracture or subluxation. Alignment is preserved with extension images. The neural foramina a re widely patent. There is mild disc height loss from C2-C5 with fragmented nearly bridged osteophyte s at C2-C3 and C3-C4. There is osseous fusion with bridging anteriorly at C4-C5. IMPRESSION: No acute osseous abnormality Bridging anterior osteophyte from C2-C5, fused at C4-C5.
[2025-01-16] MEDS: CITALOPRAM HYDROBR 20 MG TAB PO SCH (10:09)
[2025-01-16] MEDS: EMPAGLIFLOZIN 10 MG TAB PO SCH (10:09)
[2025-01-16] MEDS: ATORVASTATIN 20 MG TAB PO SCH (10:09)
[2025-01-16] MEDS: METOPROLOL SUCCINATE XL 50 MG TAB PO SCH (10:10)
[2025-01-16] MEDS: OXYBUTYNIN CHL 5 MG TAB PO SCH (10:11)
[2025-01-16] MEDS: SILDENAFIL CITRATE 20 MG TAB PO SCH (10:27)
[2025-01-16] MEDS: BETAMETHASONE DIPROP0.05% TOPICAL CREAM 15GM TOP SCH (10:27)
--- NOTE | 2025-01-16 10:28 | DVH ---
CLINICAL HISTORY: R/O PNEUMONIA TECHNIQUE: 2 view of the chest was obtained. WID: COMPARISON: XY CHEST TWO VIEWS ROUTINE on DOS: 01/03/25, XY CHEST PORTABLE on DOS: 12/30/24, XY CHEST XRAY 1 VIEW on DOS: 10/15/24, XY CHEST PORTABLE on DOS: 10/14/24, XY CHEST TWO VIEWS ROUTINE on DOS: 07/30/24 FINDINGS: Lungs: Bronchial wall thickening with streaky opacities Cardiomediastinal silhouette: Enlarged Bones: No acute osseous abnormality. Imaged Upper Abdomen: unremarkable. IMPRESSION: Bronchitis with mild interstitial edema. Developing multifocal bronchopneumonia is not excluded. Cardiomegaly
--- NOTE | 2025-01-16 10:30 | DVH ---
EXAM: XY LUMBAR SPINE 4+ VIEW HISTORY: DJD COMPARISON: XR LUMBAR SPINE 2-3 VIEW on DOS: 12/28/24 TECHNIQUE: AP and lateral views of the lumbar spine and spot lateral of the lumbosacral junction were performed. FINDINGS: There is no fracture or dislocation. There is mild -moderate multilevel disc height loss with margin al osteophytes. There is severe facet arthrosis from L2-S1, most notable from L4-L5. IMPRESSION: No acute osseous abnormality Severe multilevel facet arthrosis, worst from L4-S1
--- NOTE | 2025-01-16 10:31 | DVH ---
XY R HIP COMPLETE XRAY, INDICATION: OA of R hip TECHNICAL DATA: Frontal and frog lateral views were obtained of the right hip.] COMPARISON: XY L HIP COMPLETE XRAY on DOS: 05/15/23 FINDINGS: Coxa profunda bilaterally. Status post right hip total arthroplasty. No evidence of hardware complica tion. Mild degenerative changes of the left hip. IMPRESSION: Status post right hip arthroplasty without evidence of hardware complication. No fracture.
[2025-01-16] MEDS: ALBUTEROL MEDNEB 2.5 mg/3ml NEB NEB PRN (10:40)
--- NOTE | 2025-01-16 15:40 | DVHPN2 ---
Progress Note - Dictate Date Seen: Jan 16, 2025 vital signs Vital Sign Date Time Temp Pulse Resp B/P (MAP) Pulse Ox O2 Delivery O2 Flow Rate FiO2 01/16/25 13:00 97.4 73 18 122/71 (88) 95 97.4 01/16/25 10:40 Room Air 0.0 01/16/25 10:40 21 Total Intake and Output 01/15/25 01/15/25 01/16/25 15:00 23:00 07:00 Intake Total 240 ml Output Total 200 ml Balance 40 ml medications Current Medications Medications Dose Ordered Sig/Kitty Route Start Time Stop Time Status Last Admin Dose Admin Nitroglycerin 0.4 mg Q5MINP PRN SL 01/15/25 22:00 Morphine Sulfate 2 mg Q30M PRN IV 01/15/25 22:00 Albuterol 2.5 mg Q6HPRN PRN NEB 01/15/25 23:00 01/16/25 10:40 2.5 MG Betamethasone Dipropion Augmented 1 applic DAILY TOP 01/16/25 10:00 01/16/25 10:27 1 APPLIC Docusate Sodium 100 mg DAILY PRN PO 01/15/25 22:00 Duloxetine HCl 30 mg DAILY PO 01/16/25 10:00 01/16/25 10:05 30 MG Empaglifozin 10 mg DAILY PO 01/16/25 10:00 01/16/25 10:09 10 MG Metoprolol Succinate 50 mg DAILY PO 01/16/25 10:00 01/16/25 10:10 50 MG Multivitamins 1 tab DAILY PO 01/16/25 10:00 01/16/25 10:06 1 TAB Oxybutynin Chloride 10 mg DAILY PO 01/16/25 10:00 01/16/25 10:11 10 MG Pantoprazole Sodium 40 mg QAM PO 01/16/25 07:00 01/16/25 06:33 40 MG Sildenafil Citrate 20 mg TID@08,14,20 PO 01/16/25 08:00 01/16/25 14:10 20 MG Patient Own Medication 1 DAILY PO 01/16/25 10:00 Citalopram Hydrobromide 40 mg DAILY PO 01/16/25 10:00 01/16/25 10:09 40 MG Mupirocin 1 applic BID TOP 01/16/25 10:00 Oxycodone HCl 20 mg Q8HPRN PRN PO 01/15/25 22:45 01/16/25 14:19 20 MG Prednisone 10 mg BID PO 01/16/25 10:00 Hold Atorvastatin Calcium 40 mg DAILY PO 01/16/25 10:00 01/16/25 10:09 40 MG Patient Own Medication 4 mg BID PO 01/15/25 22:00 Valsartan 160 mg DAILY PO 01/16/25 10:00 01/16/25 10:06 160 MG Diagnostic Test (Pha) 1 strip ACHS 01/16/25 07:00 01/16/25 10:33 1 STRIP Insulin Human Lispro AC SC 01/16/25 07:00 01/16/25 06:33 2 UNITS Insulin Human Lispro HS SC 01/16/25 22:00 Ketorolac Tromethamine 30 mg Q6HPRN PRN IV 01/15/25 22:15 01/20/25 22:14 01/16/25 06:25 30 MG Hydromorphone HCl 1 mg Q4HP PRN IV 01/15/25 22:15 01/16/25 07:57 1 MG Hydrocortisone Sodium Succinate 50 mg Q6HR IV 01/16/25 00:00 01/16/25 10:28 50 MG Clonidine HCl 0.1 mg Q6H PRN PO 01/16/25 08:45 laboratory and microbiology Laboratory Tests 01/16/25 06:51 Test 01/16/25 06:51 Range/Units Serum Glucose 141 H 74-106 mg/dL SULY CARDOZO MD Jan 16, 2025 15:40
--- NOTE | 2025-01-16 17:11 | DVH ---
CLINICAL INDICATION: Osteoarthritis TECHNIQUE: XY L HIP COMPLETE XRAY Comparison: None FINDINGS/IMPRESSION: : No acute fracture or malalignment. Right hip arthroplasty in place. Visualized components of the hardware are intact. Osteoarthritis of the left hip with [id number] joint space narrowing and mild osteophyte format ion. Degenerative change of the lumbar spine. Overlying soft tissues are intact.
--- NOTE | 2025-01-16 17:49 | DVH ---
CLINICAL HISTORY: LS SPINE STENOSIS TECHNIQUE: CT of the lumbar spine was performed without intravenous contrast. This exam was performed according to our departmental dose optimization program. Up-to-date CT equipment and radiation dose reduction techniques are utilized as appropriate. 38.94 CTDI: 38.94 DLP: 1233.48 WID: COMPARISON: XY LUMBAR SPINE 4+ VIEW on DOS: 01/16/25, FINDINGS: There are 5 [id number] lumbar type vertebral bodies. The vertebral body heights are maintained. Minimal anterolisthesis L4-L5 and minimal retrolisthesis at L5-S1. There is no acute fracture. There is multilevel degenerative change of the lower thoracic and lumbar spine with multilevel osteop hyte formation and facet hypertrophy. At T11-T12, there is a disc osteophyte complex resulting in mild right neural foraminal stenosis. At T12-L1 there is no significant stenosis. At L1-L2 there is a mild diffuse disc bulge and mild facet hypertrophy without high-grade stenosis. At L2-L3, there is a diffuse disc bulge, mild ligamentum flavum thickening, and facet hypertrophy wit h minimal bilateral neural foraminal stenosis. At L3-L4, there is a diffuse disc bulge, facet hypertrophy, and ligamentum flavum thickening resultin g in mild spinal stenosis and minor bilateral neural foraminal stenosis. At L4-L5, there is a diffuse disc bulge, facet hypertrophy, and ligamentum flavum thickening with mil d bilateral neural foraminal stenosis and minor spinal stenosis. At L5-S1, there is a disc osteophyte complex and facet hypertrophy resulting in mild 2 moderate bilat eral neural foraminal stenosis Mild calcified plaque in the visualized aortoiliac vessels. There is mild distal colonic diverticulo sis. No acute abnormality in the visualized abdomen. IMPRESSION: 1. No acute fracture or traumatic malalignment. 2. Multilevel degenerative neural foraminal stenosis up to [id number] bilaterally at L5-S1. No high-grade neural foraminal stenosis. 3. Mild degenerative spinal stenosis at L3-L4 and L4-L5. 4. Mild distal colonic diverticulosis.
[2025-01-17] VITALS (9 sets, daily range): BP systolic 137–155; BP diastolic 75–84; PULSE 60–81; RESP 17–20; TEMP 97.7–98.4; O2SAT 95–100
[2025-01-17 02:32] LABS: Urine Protein, UAD Negative (Negative)
[2025-01-17] MEDS ORDERED: BACTRIM 5MG/KG Q8HR PER RX 10 ML IV SCH (21:45)
[2025-01-17] MEDS ORDERED: SULFAMETH-TRIMETH 80/16MG-ML 15 ML in D5W 5% 500 ML IV SCH (22:09)
[2025-01-17] MEDS: SOD CHL 0.45% 1,000 ML IV SCH (22:20)
[2025-01-17] MEDS: SULFAMETH-TRIMETH 80/16MG-ML 15 ML in D5W 5% 500 ML IV SCH (22:30)
--- NOTE | 2025-01-17 23:07 | DVHPN2 ---
Progress Note - Dictate Date Seen: Jan 17, 2025 Subjective currently being treated for urinary tract infection, lower back pains and lumbar spinal canal stenosis vital signs Vital Sign Date Time Temp Pulse Resp B/P (MAP) Pulse Ox O2 Delivery O2 Flow Rate FiO2 01/17/25 22:20 68 16 128/72 01/17/25 21:00 97.7 97 97.7 01/17/25 20:00 Room Air* 0 21 Total Intake and Output 01/16/25 01/16/25 01/17/25 15:00 23:00 07:00 Intake Total 690 ml 700 ml Balance 690 ml 700 ml medications Current Medications Medications Dose Ordered Sig/Kitty Route Start Time Stop Time Status Last Admin Dose Admin Nitroglycerin 0.4 mg Q5MINP PRN SL 01/15/25 22:00 Morphine Sulfate 2 mg Q30M PRN IV 01/15/25 22:00 Albuterol 2.5 mg Q6HPRN PRN NEB 01/15/25 23:00 01/16/25 10:40 2.5 MG Betamethasone Dipropion Augmented 1 applic DAILY TOP 01/16/25 10:00 01/17/25 09:54 1 APPLIC Docusate Sodium 100 mg DAILY PRN PO 01/15/25 22:00 Duloxetine HCl 30 mg DAILY PO 01/16/25 10:00 01/17/25 09:52 30 MG Empaglifozin 10 mg DAILY PO 01/16/25 10:00 01/17/25 09:54 10 MG Metoprolol Succinate 50 mg DAILY PO 01/16/25 10:00 01/17/25 09:53 50 MG Multivitamins 1 tab DAILY PO 01/16/25 10:00 01/17/25 09:54 1 TAB Oxybutynin Chloride 10 mg DAILY PO 01/16/25 10:00 01/17/25 09:53 10 MG Pantoprazole Sodium 40 mg QAM PO 01/16/25 07:00 01/17/25 05:53 40 MG Sildenafil Citrate 20 mg TID@08,14,20 PO 01/16/25 08:00 01/17/25 21:00 20 MG Patient Own Medication 1 DAILY PO 01/16/25 10:00 Citalopram Hydrobromide 40 mg DAILY PO 01/16/25 10:00 01/17/25 09:53 40 MG Mupirocin 1 applic BID TOP 01/16/25 10:00 01/17/25 21:11 1 APPLIC Oxycodone HCl 20 mg Q8HPRN PRN PO 01/15/25 22:45 01/16/25 14:19 20 MG Prednisone 10 mg BID PO 01/16/25 10:00 Hold Atorvastatin Calcium 40 mg DAILY PO 01/16/25 10:00 01/17/25 09:53 40 MG Patient Own Medication 4 mg BID PO 01/15/25 22:00 Valsartan 160 mg DAILY PO 01/16/25 10:00 01/17/25 09:57 160 MG Diagnostic Test (Pha) 1 strip ACHS 01/16/25 07:00 01/17/25 21:11 1 STRIP Insulin Human Lispro AC SC 01/16/25 07:00 01/17/25 11:30 2 UNITS Insulin Human Lispro HS SC 01/16/25 22:00 01/17/25 21:14 2 UNITS Ketorolac Tromethamine 30 mg Q6HPRN PRN IV 01/15/25 22:15 01/20/25 22:14 01/17/25 15:41 30 MG Hydromorphone HCl 1 mg Q4HP PRN IV 01/15/25 22:15 01/17/25 21:21 1 MG Hydrocortisone Sodium Succinate 50 mg Q6HR IV 01/16/25 00:00 01/17/25 18:46 50 MG Clonidine HCl 0.1 mg Q6H PRN PO 01/16/25 08:45 Sodium Chloride 1,000 ml @ 50 mls/hr Q20H IV 01/17/25 21:45 01/17/25 22:20 50 MLS/HR Trimethoprim/ Sulfamethoxazole 10 ml @ 0 mls/hr PER PHARMACY IV 01/17/25 21:45 UNV Trimethoprim/ Sulfamethoxazole 15 ml/Dextrose 515 ml @ 343.333 mls/hr Q12HR IV 01/17/25 22:30 laboratory and microbiology Laboratory Tests 01/16/25 06:51 Test 01/16/25 06:51 Range/Units Serum Glucose 141 H 74-106 mg/dL Assessment/Plan Recommend IV hydration Recommend IV Bactrim Continue IV Toradol, Solu-Cortef and IV Dilaudid Recommend physical therapy SULY CARDOZO MD Jan 17, 2025 23:07
[2025-01-18] VITALS (11 sets, daily range): BP systolic 102–160; BP diastolic 67–82; PULSE 60–71; RESP 16–19; TEMP 96.6–98.2; O2SAT 90–100
[2025-01-18] MEDS ORDERED: ALBUTEROL SULF 2.5 MG/0.5ML(0.5%) NEB SOLN ONE (04:33)
[2025-01-18] MEDS ORDERED: SULFAMETH-TRIMETH 80/16MG-ML 15 ML in D5W 5% 500 ML IV SCH (06:00)
--- NOTE | 2025-01-18 07:49 | DVHPN2 ---
Progress Note - Dictate Date Seen: Jan 18, 2025 Subjective currently being treated for urinary tract infection, lower back pains and lumbar spinal canal stenosis taper off steroids and IV dilaudid vital signs Vital Sign Date Time Temp Pulse Resp B/P (MAP) Pulse Ox O2 Delivery O2 Flow Rate FiO2 01/18/25 05:20 71 19 160/82 01/18/25 05:00 97.7 99 97.7 01/18/25 04:31 Room Air 0.0 01/18/25 04:31 21 Total Intake and Output 01/17/25 01/17/25 01/18/25 15:00 23:00 07:00 Intake Total 860 ml 400 ml Output Total 525 ml Balance 860 ml -125 ml medications Current Medications Medications Dose Ordered Sig/Kitty Route Start Time Stop Time Status Last Admin Dose Admin Nitroglycerin 0.4 mg Q5MINP PRN SL 01/15/25 22:00 Albuterol 2.5 mg Q6HPRN PRN NEB 01/15/25 23:00 01/18/25 04:31 2.5 MG Betamethasone Dipropion Augmented 1 applic DAILY TOP 01/16/25 10:00 01/17/25 09:54 1 APPLIC Docusate Sodium 100 mg DAILY PRN PO 01/15/25 22:00 Duloxetine HCl 30 mg DAILY PO 01/16/25 10:00 01/17/25 09:52 30 MG Empaglifozin 10 mg DAILY PO 01/16/25 10:00 01/17/25 09:54 10 MG Metoprolol Succinate 50 mg DAILY PO 01/16/25 10:00 01/17/25 09:53 50 MG Multivitamins 1 tab DAILY PO 01/16/25 10:00 01/17/25 09:54 1 TAB Oxybutynin Chloride 10 mg DAILY PO 01/16/25 10:00 01/17/25 09:53 10 MG Pantoprazole Sodium 40 mg QAM PO 01/16/25 07:00 01/18/25 06:17 40 MG Sildenafil Citrate 20 mg TID@08,14,20 PO 01/16/25 08:00 01/17/25 21:00 20 MG Patient Own Medication 1 DAILY PO 01/16/25 10:00 Citalopram Hydrobromide 40 mg DAILY PO 01/16/25 10:00 01/17/25 09:53 40 MG Mupirocin 1 applic BID TOP 01/16/25 10:00 01/17/25 21:11 1 APPLIC Oxycodone HCl 20 mg Q8HPRN PRN PO 01/15/25 22:45 01/16/25 14:19 20 MG Prednisone 10 mg BID PO 01/16/25 10:00 Hold Atorvastatin Calcium 40 mg DAILY PO 01/16/25 10:00 01/17/25 09:53 40 MG Patient Own Medication 4 mg BID PO 01/15/25 22:00 Valsartan 160 mg DAILY PO 01/16/25 10:00 01/17/25 09:57 160 MG Diagnostic Test (Pha) 1 strip ACHS 01/16/25 07:00 01/17/25 21:11 1 STRIP Insulin Human Lispro AC SC 01/16/25 07:00 01/17/25 11:30 2 UNITS Insulin Human Lispro HS SC 01/16/25 22:00 01/17/25 21:14 2 UNITS Ketorolac Tromethamine 30 mg Q6HPRN PRN IV 01/15/25 22:15 01/20/25 22:14 01/18/25 06:18 30 MG Clonidine HCl 0.1 mg Q6H PRN PO 01/16/25 08:45 Sodium Chloride 1,000 ml @ 50 mls/hr Q20H IV 01/17/25 21:45 01/17/25 22:20 50 MLS/HR Trimethoprim/ Sulfamethoxazole 10 ml @ 0 mls/hr PER PHARMACY IV 01/17/25 21:45 UNV Trimethoprim/ Sulfamethoxazole 15 ml/Dextrose 515 ml @ 343.333 mls/hr Q12HR IV 01/17/25 22:30 Hydrocortisone Sodium Succinate 50 mg Q8HR IV 01/18/25 14:00 UNV Hydromorphone HCl 0.6 mg Q4HP PRN IV 01/18/25 07:45 UNV laboratory and microbiology Laboratory Tests 01/16/25 06:51 Test 01/16/25 06:51 Range/Units Serum Glucose 141 H 74-106 mg/dL Assessment/Plan Recommend IV hydration Recommend IV Bactrim Continue IV Toradol, Solu-Cortef and IV Dilaudid Recommend physical therapy SULY CARDOZO MD Jan 18, 2025 07:49
[2025-01-18] MEDS: DOCUSATE SOD 100 MG CAP PO PRN (08:50)
[2025-01-18] MEDS: SULFAMETH-TRIMETH 80/16MG-ML 20 ML in D5W 5% 500 ML IV SCH (10:44)
[2025-01-18] MEDS: HYDROCORTISONE SOD SUCC 100 MG/2ML INJ VIAL IV SCH (14:33)
[2025-01-18] MEDS: HYDROmorphone HCL 2 MG/ML VL/or syr IV PRN (14:40)
--- NOTE | 2025-01-18 22:41 | DVHPN2 ---
Progress Note - Dictate Date Seen: Jan 19, 2025 Subjective currently being treated for urinary tract infection, lower back pains and lumbar spinal canal stenosis taper off steroids and IV dilaudid vital signs Vital Sign Vital Sign Date Time Temp Pulse Resp B/P (MAP) Pulse Ox O2 Delivery O2 Flow Rate FiO2 01/18/25 05:20 71 19 160/82 01/18/25 05:00 97.7 99 97.7 01/18/25 04:31 Room Air 0.0 01/18/25 04:31 21 Date Time Temp Pulse Resp B/P (MAP) Pulse Ox O2 Delivery O2 Flow Rate FiO2 01/19/25 5:00 97.9 54 20 154/80 (104) 95 01/19/25 9:00 69 20 157/89 Room Air* 0 21 Total Intake and Output 01/17/25 01/17/25 01/18/25 15:00 23:00 07:00 Intake Total 860 ml 400 ml Output Total 525 ml Balance 860 ml -125 ml medications Current Medications Medications Dose Ordered Sig/Kitty Route Start Time Stop Time Status Last Admin Dose Admin Nitroglycerin 0.4 mg Q5MINP PRN SL 01/15/25 22:00 Cancel Albuterol 2.5 mg Q6HPRN PRN NEB 01/15/25 23:00 01/18/25 04:31 2.5 MG Betamethasone Dipropion Augmented 1 applic DAILY TOP 01/16/25 10:00 01/18/25 10:54 1 APPLIC Docusate Sodium 100 mg DAILY PRN PO 01/15/25 22:00 01/18/25 08:50 100 MG Duloxetine HCl 30 mg DAILY PO 01/16/25 10:00 01/18/25 08:49 30 MG Empaglifozin 10 mg DAILY PO 01/16/25 10:00 01/18/25 08:49 10 MG Metoprolol Succinate 50 mg DAILY PO 01/16/25 10:00 01/18/25 08:49 50 MG Multivitamins 1 tab DAILY PO 01/16/25 10:00 01/18/25 08:49 1 TAB Oxybutynin Chloride 10 mg DAILY PO 01/16/25 10:00 01/18/25 08:49 10 MG Pantoprazole Sodium 40 mg QAM PO 01/16/25 07:00 01/18/25 06:17 40 MG Sildenafil Citrate 20 mg TID@08,14,20 PO 01/16/25 08:00 01/18/25 21:06 20 MG Patient Own Medication 1 DAILY PO 01/16/25 10:00 01/18/25 12:43 1 Citalopram Hydrobromide 40 mg DAILY PO 01/16/25 10:00 01/18/25 08:49 40 MG Mupirocin 1 applic BID TOP 01/16/25 10:00 01/18/25 21:21 1 APPLIC Oxycodone HCl 20 mg Q8HPRN PRN PO 01/15/25 22:45 01/16/25 14:19 20 MG Prednisone 10 mg BID PO 01/16/25 10:00 Hold Atorvastatin Calcium 40 mg DAILY PO 01/16/25 10:00 01/18/25 08:49 40 MG Patient Own Medication 4 mg BID PO 01/15/25 22:00 Valsartan 160 mg DAILY PO 01/16/25 10:00 01/18/25 08:50 160 MG Diagnostic Test (Pha) 1 strip ACHS 01/16/25 07:00 01/18/25 21:21 1 STRIP Insulin Human Lispro AC SC 01/16/25 07:00 01/17/25 11:30 2 UNITS Insulin Human Lispro HS SC 01/16/25 22:00 01/18/25 21:21 2 UNITS Ketorolac Tromethamine 30 mg Q6HPRN PRN IV 01/15/25 22:15 01/20/25 22:14 01/18/25 21:22 30 MG Clonidine HCl 0.1 mg Q6H PRN PO 01/16/25 08:45 Sodium Chloride 1,000 ml @ 50 mls/hr Q20H IV 01/17/25 21:45 01/18/25 21:22 50 MLS/HR Trimethoprim/ Sulfamethoxazole 10 ml @ 0 mls/hr PER PHARMACY IV 01/17/25 21:45 Hydrocortisone Sodium Succinate 50 mg Q8HR IV 01/18/25 14:00 01/18/25 21:06 50 MG Hydromorphone HCl 0.6 mg Q4HP PRN IV 01/18/25 07:45 01/18/25 14:40 0.6 MG Trimethoprim/ Sulfamethoxazole 20 ml/Dextrose 520 ml @ 346.667 mls/hr Q8H IV 01/18/25 09:30 01/18/25 17:47 346.667 MLS/HR laboratory and microbiology Laboratory Tests 01/16/25 06:51 Test 01/16/25 06:51 Range/Units Serum Glucose 141 H 74-106 mg/dL Assessment/Plan Recommend IV hydration Recommend IV Bactrim Continue IV Toradol, Solu-Cortef and IV Dilaudid Recommend physical therapy SULY CARDOZO MD Jan 18, 2025 22:41
[2025-01-19] VITALS (10 sets, daily range): BP systolic 132–157; BP diastolic 65–89; PULSE 47–82; RESP 17–20; TEMP 97.8–98.3; O2SAT 94–98
[2025-01-19 07:17] LABS: Hematocrit 34.2 % (36.0-46.0); Hemoglobin 11.1 g/dL (12.2-16.2); Mean Corpuscular Hemoglobin 24.9 pg (28.0-32.0); Mean Corpuscular Volume 76.8 fL (80.0-100.0); Nucleated Red Blood Cells % 0.2 %
[2025-01-19 07:26] LABS: Alanine Aminotransferase 11 U/L (7-40); Albumin 3.8 g/dL (3.2-4.8); Alkaline Phosphatase 101 U/L (46-116); Anion Gap 8 (5-15); BUN/Creatinine Ratio 16.0 (10.0-20.0); Blood Urea Nitrogen 13 mg/dL (9-23); Calcium 8.9 mg/dL (8.7-10.4); Carbon Dioxide 26 mmol/L (20-31); Chloride 108 mmol/L (98-107); Glucose 111 mg/dL (74-106); Potassium 4.0 mmol/L (3.5-5.1); Sodium 142 mmol/L (136-145); Total Protein 6.5 g/dL (5.7-8.2)
[2025-01-19 07:32] LABS: Bilirubin, Total 0.2 mg/dL (0.2-1.0)
[2025-01-19] MEDS: SULFAMETH-TRIMETH 80/16MG-ML 20 ML in D5W 5% 500 ML IV SCH (08:40)
--- NOTE | 2025-01-19 09:28 | DVHPN2 ---
Progress Note - Dictate Subjective currently being treated for urinary tract infection, lower back pains and lumbar spinal canal stenosis taper off steroids and IV dilaudid vital signs Vital Sign Date Time Temp Pulse Resp B/P (MAP) Pulse Ox O2 Delivery O2 Flow Rate FiO2 01/19/25 09:06 47 17 153/90 01/19/25 08:00 95 21 01/19/25 06:42 Room Air* 0 01/19/25 05:00 97.9 97.9 Total Intake and Output 01/18/25 01/18/25 01/19/25 15:00 23:00 07:00 Intake Total 500 ml 100 ml 240 ml Output Total 680 ml Balance 500 ml 100 ml -440 ml medications Current Medications Medications Dose Ordered Sig/Kitty Route Start Time Stop Time Status Last Admin Dose Admin Nitroglycerin 0.4 mg Q5MINP PRN SL 01/15/25 22:00 Cancel Albuterol 2.5 mg Q6HPRN PRN NEB 01/15/25 23:00 01/18/25 04:31 2.5 MG Betamethasone Dipropion Augmented 1 applic DAILY TOP 01/16/25 10:00 01/18/25 10:54 1 APPLIC Docusate Sodium 100 mg DAILY PRN PO 01/15/25 22:00 01/18/25 08:50 100 MG Duloxetine HCl 30 mg DAILY PO 01/16/25 10:00 01/18/25 08:49 30 MG Empaglifozin 10 mg DAILY PO 01/16/25 10:00 01/18/25 08:49 10 MG Metoprolol Succinate 50 mg DAILY PO 01/16/25 10:00 01/18/25 08:49 50 MG Multivitamins 1 tab DAILY PO 01/16/25 10:00 01/18/25 08:49 1 TAB Oxybutynin Chloride 10 mg DAILY PO 01/16/25 10:00 01/18/25 08:49 10 MG Pantoprazole Sodium 40 mg QAM PO 01/16/25 07:00 01/19/25 06:05 40 MG Sildenafil Citrate 20 mg TID@08,14,20 PO 01/16/25 08:00 01/19/25 08:41 20 MG Patient Own Medication 1 DAILY PO 01/16/25 10:00 01/18/25 12:43 1 Citalopram Hydrobromide 40 mg DAILY PO 01/16/25 10:00 01/18/25 08:49 40 MG Mupirocin 1 applic BID TOP 01/16/25 10:00 01/18/25 21:21 1 APPLIC Oxycodone HCl 20 mg Q8HPRN PRN PO 01/15/25 22:45 01/16/25 14:19 20 MG Prednisone 10 mg BID PO 01/16/25 10:00 Hold Atorvastatin Calcium 40 mg DAILY PO 01/16/25 10:00 01/18/25 08:49 40 MG Patient Own Medication 4 mg BID PO 01/15/25 22:00 Valsartan 160 mg DAILY PO 01/16/25 10:00 01/18/25 08:50 160 MG Diagnostic Test (Pha) 1 strip ACHS 01/16/25 07:00 01/19/25 06:07 1 STRIP Insulin Human Lispro AC SC 01/16/25 07:00 01/17/25 11:30 2 UNITS Insulin Human Lispro HS SC 01/16/25 22:00 01/18/25 21:21 2 UNITS Ketorolac Tromethamine 30 mg Q6HPRN PRN IV 01/15/25 22:15 01/20/25 22:14 01/18/25 21:22 30 MG Clonidine HCl 0.1 mg Q6H PRN PO 01/16/25 08:45 Sodium Chloride 1,000 ml @ 50 mls/hr Q20H IV 01/17/25 21:45 01/18/25 21:22 50 MLS/HR Trimethoprim/ Sulfamethoxazole 10 ml @ 0 mls/hr PER PHARMACY IV 01/17/25 21:45 Hydrocortisone Sodium Succinate 50 mg Q8HR IV 01/18/25 14:00 01/19/25 05:11 50 MG Hydromorphone HCl 0.6 mg Q4HP PRN IV 01/18/25 07:45 01/19/25 09:06 0.6 MG Trimethoprim/ Sulfamethoxazole 20 ml/Dextrose 520 ml @ 346.667 mls/hr Q8H IV 01/19/25 08:00 01/19/25 08:40 346.667 MLS/HR laboratory and microbiology Laboratory Tests 01/19/25 05:01 Test 01/19/25 05:01 Range/Units Serum Glucose 111 H 74-106 mg/dL Assessment/Plan Recommend IV hydration Recommend IV Bactrim Continue IV Toradol, Solu-Cortef and IV Dilaudid Recommend physical therapy SULY CARDOZO MD Jan 19, 2025 09:27
[2025-01-20] VITALS (11 sets, daily range): BP systolic 126–174; BP diastolic 68–91; PULSE 54–79; RESP 16–20; TEMP 97.1–98; O2SAT 94–100
[2025-01-20] MEDS ORDERED: ALBUTEROL SULF 2.5 MG/0.5ML(0.5%) NEB SOLN NEB PRN (15:00)
--- NOTE | 2025-01-20 21:44 | DVHPN2 ---
Progress Note - Dictate Date Seen: Jan 20, 2025 Subjective currently being treated for urinary tract infection, lower back pains and lumbar spinal canal stenosis taper off steroids and IV dilaudid vital signs Vital Sign Date Time Temp Pulse Resp B/P (MAP) Pulse Ox O2 Delivery O2 Flow Rate FiO2 01/20/25 17:00 97.8 79 16 140/78 (98) 99 97.8 01/20/25 08:12 Nasal Cannula* 3 32 Total Intake and Output 01/19/25 01/19/25 01/20/25 15:00 23:00 07:00 Intake Total 438 ml 1970 ml Balance 438 ml 1970 ml medications Current Medications Medications Dose Ordered Sig/Kitty Route Start Time Stop Time Status Last Admin Dose Admin Nitroglycerin 0.4 mg Q5MINP PRN SL 01/15/25 22:00 Cancel Betamethasone Dipropion Augmented 1 applic DAILY TOP 01/16/25 10:00 01/20/25 10:20 1 APPLIC Docusate Sodium 100 mg DAILY PRN PO 01/15/25 22:00 01/19/25 12:33 100 MG Duloxetine HCl 30 mg DAILY PO 01/16/25 10:00 01/20/25 10:16 30 MG Empaglifozin 10 mg DAILY PO 01/16/25 10:00 01/20/25 10:16 10 MG Metoprolol Succinate 50 mg DAILY PO 01/16/25 10:00 01/20/25 10:17 50 MG Multivitamins 1 tab DAILY PO 01/16/25 10:00 01/20/25 10:17 1 TAB Oxybutynin Chloride 10 mg DAILY PO 01/16/25 10:00 01/20/25 10:16 10 MG Pantoprazole Sodium 40 mg QAM PO 01/16/25 07:00 01/20/25 06:25 40 MG Sildenafil Citrate 20 mg TID@08,14,20 PO 01/16/25 08:00 01/20/25 21:02 20 MG Patient Own Medication 1 DAILY PO 01/16/25 10:00 01/20/25 10:16 1 Citalopram Hydrobromide 40 mg DAILY PO 01/16/25 10:00 01/20/25 10:16 40 MG Mupirocin 1 applic BID TOP 01/16/25 10:00 01/20/25 21:03 1 APPLIC Oxycodone HCl 20 mg Q8HPRN PRN PO 01/15/25 22:45 01/16/25 14:19 20 MG Prednisone 10 mg BID PO 01/16/25 10:00 Hold Atorvastatin Calcium 40 mg DAILY PO 01/16/25 10:00 01/20/25 10:17 40 MG Patient Own Medication 4 mg BID PO 01/15/25 22:00 Valsartan 160 mg DAILY PO 01/16/25 10:00 01/20/25 10:16 160 MG Diagnostic Test (Pha) 1 strip ACHS 01/16/25 07:00 01/20/25 11:30 1 STRIP Insulin Human Lispro AC SC 01/16/25 07:00 01/17/25 11:30 2 UNITS Insulin Human Lispro HS SC 01/16/25 22:00 01/19/25 21:12 2 UNITS Ketorolac Tromethamine 30 mg Q6HPRN PRN IV 01/15/25 22:15 01/20/25 22:14 01/20/25 13:17 30 MG Clonidine HCl 0.1 mg Q6H PRN PO 01/16/25 08:45 01/20/25 15:16 0.1 MG Sodium Chloride 1,000 ml @ 50 mls/hr Q20H IV 01/17/25 21:45 01/20/25 06:40 50 MLS/HR Trimethoprim/ Sulfamethoxazole 10 ml @ 0 mls/hr PER PHARMACY IV 01/17/25 21:45 Hydrocortisone Sodium Succinate 50 mg Q8HR IV 01/18/25 14:00 01/20/25 21:02 50 MG Hydromorphone HCl 0.6 mg Q4HP PRN IV 01/18/25 07:45 01/20/25 06:31 0.6 MG Trimethoprim/ Sulfamethoxazole 20 ml/Dextrose 520 ml @ 346.667 mls/hr Q8H IV 01/19/25 08:00 01/20/25 16:43 346.667 MLS/HR Albuterol 2.5 mg Q6HPRN PRN NEB 01/20/25 15:00 Trimethoprim/ Sulfamethoxazole 1 tab Q12HR PO 01/20/25 22:00 laboratory and microbiology Laboratory Tests 01/19/25 05:01 Test 01/19/25 05:01 Range/Units Serum Glucose 111 H 74-106 mg/dL Assessment/Plan Recommend IV hydration Recommend IV Bactrim Continue IV Toradol, Solu-Cortef and IV Dilaudid Recommend physical therapy [facility]ary Evaluation [facility] W[facility] management Monitor updated lab values and kidney function Expected Outcomes/Goals: gradual wt loss SULY CARDOZO MD Jan 20, 2025 21:44
--- NOTE | 2025-01-20 21:45 | DVHDS2 ---
Discharge Summary Date of Admission Jan 15, 2025 at 21:48 Date of Discharge: Jan 20, 2025 Labs/Diagnostic Data: Laboratory Results Test 01/20/25 12:18 01/19/25 05:01 01/17/25 02:10 01/16/25 06:51 POC Glucose 105 mg/dl (70-106) White Blood Count 6.6 10^3/uL (4.4-10.8) Red Blood Count 4.45 10^6/uL (4.0-5.20) Hemoglobin 11.1 g/dL (12.2-16.2) Hematocrit 34.2 % (36.0-46.0) Mean Corpuscular Volume 76.8 fL (80.0-100.0) Mean Corpuscular Hemoglobin 24.9 pg (28.0-32.0) Mean Corpuscular Hemoglobin Concent 32.4 g/dL (32.0-36.0) Red Cell Distribution Width 16.4 % (11.8-14.3) Platelet Count 266 10^3/uL (140-450) Mean Platelet Volume 8.4 fL (6.9-10.8) Neutrophils (%) (Auto) 65.5 % (37.0-80.0) Lymphocytes (%) (Auto) 26.4 % (10.0-50.0) Monocytes (%) (Auto) 7.1 % (0.0-12.0) Eosinophils (%) (Auto) 0.3 % (0.0-7.0) Basophils (%) (Auto) 0.7 % (0.0-2.0) Neutrophils # (Auto) 4.3 10 ^3/uL (1.6-8.6) Lymphocytes # (Auto) 1.7 10 ^3/uL (0.4-5.4) Monocytes # (Auto) 0.5 10 ^3/uL (0-1.3) Eosinophils # (Auto) 0 10 ^3/uL (0-0.8) Basophils # (Auto) 0 10 ^3/uL (0-0.2) Nucleated Red Blood Cells 0.2 % Sodium Level 142 mmol/L (136-145) Potassium Level 4.0 mmol/L (3.5-5.1) Chloride Level 108 mmol/L (98-107) Carbon Dioxide Level 26 mmol/L (20-31) Anion Gap 8 (5-15) Blood Urea Nitrogen 13 mg/dL (9-23) Creatinine 0.81 mg/dL (0.550-1.02) Glomerular Filtration Rate Calc 80 mL/min (>90) BUN/Creatinine Ratio 16.0 (10.0-20.0) Serum Glucose 111 mg/dL (74-106) Calcium Level 8.9 mg/dL (8.7-10.4) Total Bilirubin 0.2 mg/dL (0.2-1.0) Aspartate Amino Transferase (AST) 14 U/L (13-40) Alanine Aminotransferase (ALT) 11 U/L (7-40) Alkaline Phosphatase 101 U/L (46-116) Total Protein 6.5 g/dL (5.7-8.2) Albumin 3.8 g/dL (3.2-4.8) Urine Color Light-yellow (Yellow) Urine Clarity Clear (Clear) Urine pH 5.5 (5.0-9.0) Urine Specific [place] 1.031 (1.001-1.035) Urine Protein Negative (Negative) Urine Ketones Negative (Negative) Urine Blood Trace /uL (Negative) Urine Nitrite Negative (Negative) Urine Bilirubin Negative (Negative) Urine Urobilinogen Normal mg/dL (Negative) Urine Leukocyte Esterase Negative /uL (Negative) Urine RBC 4 /hpf (0 - 4) Urine Microscopic WBC 9 /HPF (0-5) Urine Squamous Epithelial Cells Few /hpf (<5) Urine Bacteria None seen /hpf (None Seen) Urine Glucose 4+ mg/dL (Normal) Triglycerides Level 85 mg/dL (< 150) Cholesterol Level 169 mg/dL (< 200) LDL Cholesterol 108 mg/dL (< 100) HDL Cholesterol 51 mg/dL (40-59) Test 01/15/25 22:25 D-Dimer, Quantitative 0.38 mg/L FEU (0.0-0.49) Phosphorus Level 2.8 mg/dL (2.4-5.1) Magnesium Level 1.6 mg/dL (1.6-2.6) C-Reactive Protein High Sensitivity 0.62 mg/dL (<1.0) Other Laboratory Tests 01/19/25 05:01 Final Diagnosis/Problems List 1. Recurrence of UTI 2. subclinical pyelonephritis 3. Hypovolemia 4. Severe back pains L/S spine stenosis 5. Near Morbid obesity Discharge Disposition: Home Discharge Instruct/Medications Diet: Cardiac 2g Na,low cholest Diet comment: ada 1800 KATHIE Activity: Light activity Activity comment: bACK EXERCISES Follow Up/Referral: Nely Charles MD Medications: refer to D/C meds Scheduled Aripiprazole (Aripiprazole), 1 TAB PO DAILY, (Reported) Betamethasone Dipropionate (Betamethasone Dipropionat), 1 APPLIC TD BID, (Reported) Betamethasone Dipropionate (Betamethasone Dipropionat), 1 APPLIC TOP DAILY Celecoxib (Celebrex), 200 MG PO HS, (Reported) Clopidogrel Bisulfate (Clopidogrel), 75 MG PO DAILY, (Reported) Duloxetine HCl (Duloxetine HCl), 30 MG PO DAILY, (Reported) Empagliflozin (Jardiance), 10 MG PO DAILY, (Reported) Escitalopram Oxalate (Escitalopram Oxalate), 1 TAB PO DAILY, (Reported) Metformin Hydrochloride (Metformin Hcl Er), 1 TAB PO DAILY, (Reported) Metoprolol Succinate (Metoprolol Succinate Er), 50 MG PO DAILY, (Reported) Multiple Vitamin (Multivitamins), 1 TAB PO DAILY, (Reported) Mupirocin Calcium (Topical) (Mupirocin), 1 APPLIC TOP BID, (Reported) Oxybutynin Chloride (Oxybutynin Chloride), 10 MG PO DAILY, (Reported) Pantoprazole Sodium Sesquihydr (Pantoprazole Sodium), 40 MG PO QAM, (Reported) Prednisone (Prednisone), 10 MG PO BID Rosuvastatin Calcium (Crestor), 1 TAB PO DAILY, (Reported) Sildenafil Citrate (Revatio), 20 MG PO TID@08,14,20 Tizanidine Hydrochloride (Tizanidine Hcl), 4 MG PO BID, (Reported) Valsartan (Valsartan), 160 MG PO DAILY Valsartan-Hydrochlorothiazide (Diovan Hct), 1 TAB PO DAILY, (Reported) Scheduled PRN Albuterol Sulfate (Ventolin Mdi), 2 PUFF IN Q6HPRN PRN for SHORTNESS OF BREATH, (Reported) Albuterol Sulfate (Ventolin), 2.5 MG NEB Q4HPRN PRN Docusate Sodium (Docqlace), 100 MG PO DAILY PRN for FOR CONSTIPATION, (Reported) Oxycodone HCl (Oxycodone Hydrochloride), 20 MG PO Q8HPRN PRN for PAIN SCALE 7 THRU 10, (Reported) Discharge Statement: "Patient was advised to return to the ER or call 911 if any headaches, dizziness, shortness of breath, chest pain, abdominal pain, bleeding, fevers, or worsening of medical condition. Patient was counseled about treatment plan, medications, possible side effects, patientverbalized understanding. All questions were answered to the best of my ability. This discharge took greater then 30 minutes in planning, reviewing documentation, counseling the patient, and discussing with other team members." ASSESSMENT ASSESSMENT Assessment 1. Recurrence of UTI 2. subclinical pyelonephritis 3. Hypovolemia 4. Severe back pains L/S spine stenosis 5. Near Morbid obesity SULY CHARLES MD Jan 20, 2025 21:45
[2025-01-20] MEDS: SULFAMETHOX W/TRIMETH(800/160MG) DS TAB PO SCH (22:00)
[2025-01-20] MEDS: SULFAMETHOX W/TRIMETH(800/160MG) DS TAB PO ONE (22:38)
== END 2025-01-20 22:48 | disposition home or self-care (01) | DRG 552 ==
LOC: TELE-WESTW 21:48
PROVIDERS: ADMIT Specialist; ATTEND Specialist
DX: M48.061 Spinal stenosis, lumbar region without neurogenic claudication (principal); N12 Tubulo-interstitial nephritis, not specified as acute or chronic; J44.1 Chronic obstructive pulmonary disease with (acute) exacerbation; J44.0 Chronic obstructive pulmonary disease with (acute) lower respiratory infection; Z68.41 Body mass index [BMI] 40.0-44.9, adult; F11.20 Opioid dependence, uncomplicated; E88.819 Insulin resistance, unspecified; I10 Essential (primary) hypertension; E66.01 Morbid (severe) obesity due to excess calories; F31.9 Bipolar disorder, unspecified; E11.620 Type 2 diabetes mellitus with diabetic dermatitis; Z68.36 Body mass index [BMI] 36.0-36.9, adult; M17.0 Bilateral primary osteoarthritis of knee; J20.9 Acute bronchitis, unspecified; M79.7 Fibromyalgia; E78.00 Pure hypercholesterolemia, unspecified; E86.1 Hypovolemia; I25.10 Atherosclerotic heart disease of native coronary artery without angina pectoris; K21.9 Gastro-esophageal reflux disease without esophagitis; M16.0 Bilateral primary osteoarthritis of hip; L30.9 Dermatitis, unspecified; Z77.22 Contact with and (suspected) exposure to environmental tobacco smoke (acute) (chronic); Z91.148 Patient's other noncompliance with medication regimen for other reason; Z96.642 Presence of left artificial hip joint; I25.2 Old myocardial infarction; Z79.899 Other long term (current) drug therapy; Z79.84 Long term (current) use of oral hypoglycemic drugs; Z86.73 Personal history of transient ischemic attack (TIA), and cerebral infarction without residual deficits; Z90.710 Acquired absence of both cervix and uterus; Z87.440 Personal history of urinary (tract) infections; Z91.119 Patient's noncompliance with dietary regimen due to unspecified reason; J98.4 Other disorders of lung
CPT/HCPCS: 36415; 71046; 72050; 72110; 72131; 73502; 80053; 80061; 81001; 82962; 83735; 84100; 85025; 85379; 86141; 87040; 87081; 87086; 94640; G0378; J1815; J1885; J3490

== ENCOUNTER 2025-02-16 18:58 | Inpatient (IN) | payer MEDICARE, MEDICAID ==
[~2025-02-16] VITALS: Ht 165.1 cm; Wt 106.8 kg
[2025-02-16] MEDS ORDERED: ALBUTEROL SULF HFA 90MCG INH 200DOSE IN PRN (21:30)
[2025-02-16] MEDS ORDERED: MORPHINE SULFATE INJ 2 MG/ml SYRG IV PRN (21:30)
[2025-02-16] MEDS ORDERED: NITROGLYCERIN 0.4 MG SL TAB SL PRN (21:30)
[2025-02-16] MEDS ORDERED: HYDROmorphone HCL 2 MG/ML VL/or syr IV PRN ×2 (21:45)
[2025-02-16] MEDS: SOD CHL 0.45% 1,000 ML IV SCH (21:45)
[2025-02-16] MEDS: INSULIN LISPRO (HUMAN) 100 UNITS/ML ML SC SCH (22:00)
[2025-02-16 22:22] VITALS: BP 130/74; PULSE 81; RESP 19; TEMP 98.7; O2SAT 99
[2025-02-16 22:26] VITALS: PULSE 80; RESP 18; O2SAT 98
[2025-02-16 22:28] VITALS: BP 130/74; PULSE 81; RESP 19; TEMP 98.7; O2SAT 99
[2025-02-16] MEDS: HYDROCORTISONE SOD SUCC 100 MG/2ML INJ VIAL IV SCH (22:30)
--- NOTE | 2025-02-16 22:31 | DVHHP2 ---
Admitting Diagnosis: Acute exacerbation of COPD - triggered by acute asthmatic bronchitis Acute Chest pains-rule out DC Urinary tract infection History of Present Illness 64 year-old middle-aged -[place] female with a known history of COPD, hypertension, NIDDM, hypercholesterolemia, morbid obesity and status post acute DC, occlusive CAD affecting RCA-status post PTCA since 2007 as well as known history of myalgia is directly admitted for further eval and management of progressive worsening of chest congestion, productive cough, issue breath wheezing for past 3-4 days despite her receiving oral/IV antibiotics and bronchodilator Med neb treatments at my office 24 hours ago. She also reported symptoms of chest tightness and exertional shortness of breath. Oral analgesics were not helping her generalized body aches. Onset/duration: 3-4 days Severity: severe five to 7/10 Location: All over chest, upper and lower back Characteristic: Achy pains Referral: Localized Associated symptoms: Chest congestion shortness of breath wheezing Aggravated by: Deep inspiration, cough #1 Alleviated by: Bronchodilator Med-Neb yet dialysis calvarial MRI is treatment Risk factors: COPD, obesity The patient also reports concurrent signs symptoms of flank pains, frequency Dysuria highly suggestive of UTI. Patient has a known history of stricture of urethra and recurrent UTI. Following to my case discussion with terrie garrett, I admitted patient to medical floor with telemetry. She has a cardiac history and risk factors. She will be given IV antibiotics, bronchodilators med neb treatment and further eval and management of acute exacerbation of asthmatic bronchitis/COPD, chest pain and UTI. The case is discussed with patient's assigned RN Past Medical History Past medical history records: Reviewed Cardiovascular history: Long history of hypertension complicated by hypertensive CAD Suffered acute DC and noted to have occlusive disease of RCA requiring PTCA followed by stent placement in the year 2007 She suffers from chronic stable angina requiring multiple hospitalization -has received multiple stress EKG test and angiographic study including last one in November 2021-noted patent stent in RCA Respiratory history: COPD, obesity hypoventilation syndrome Gets multiple acute exacerbation of COPD from lower respiratory infection requiring hospitalization for IV antibiotics, IV steroids and bronchodilators med neb treatments Gastrointestinal history: GE reflux Genitourinary history: Recurrent UTI over the past 12 months Endocrine history: Fairly well-controlled NIDDM-Currently on metformin Her hemoglobin A1c hemoglobin A1c stays under 6.5% to 7% Morbid obesity-her BMI runs> 40 kg per [id number] counseled to lose weight of 100 pounds through diet and exercise Hypercholesterolemia currently on Lipitor-and Ecotrin Neurology history: History of CVA with no residual focal deficit Musculoskeletal history: Severe osteoarthritis affecting hip and knees-followed by Dr. Chandler Dermatitis affecting bilateral lower extremities Psychiatric history: Bipolar disorder-currently on Lamictal, Abilify Past Surgical History Total R hip replacement by Dr. Chandler Social History , lives with her spouse History of smoking: Cigarettes: Exposure to passive smoking for many years- father and spouse History of smoking E cigarettes: Never History of smoking marijuana: Never History of drinking alcohol: sober drinking on social occasions History of substance abuse: Never Patient Family History: Cardiovascular disease G8 FATHER, Onset: - Diabetes mellitus FHx: cancer G8 MOTHER, Onset: - Hypertension G8 MOTHER, Onset: G8 FATHER, Onset: Allergies: Coded Allergies: Benzalkonium Chloride (Verified Allergy, Unknown, 07/08/18) Dupilumab (Verified Allergy, Unknown, 05/30/24) Lisinopril (Verified Allergy, Unknown, 07/08/18) Sorbitan (Verified Allergy, Unknown, 05/30/24) Dexamethasone (Verified Adverse Reaction, Intermediate, burning feeling in veins, 10/15/24) Home Meds Active Scripts Sildenafil Citrate (Revatio) 20 Mg Tab, 20 MG PO TID@08,14,20 for 30 Days, #90 TAB Prov:SULY CARDOZO MD 01/04/25 Prednisone (Prednisone) 20 Mg Tab, 10 MG PO BID for 10 Days, MG Prov:SULY CARDOZO MD 10/19/24 Valsartan (Valsartan) 80 Mg Tab, 160 MG PO DAILY for 90 Days, #180 TAB Prov:SULY CARDOZO MD 07/14/24 Betamethasone Dipropionate (Betamethasone Dipropionat) 0.05 % Cre, 1 APPLIC TOP DAILY for 30 Days, #60 GM Prov:SULY CARDOZO MD 07/13/24 Albuterol Sulfate (Ventolin) 2.5 Mg/0.5 Ml Nb, 2.5 MG NEB Q4HPRN PRN for 50 Days, #100 ML 1 Refill Prov:SULY CARDOZO MD 01/20/22 Reported Medications Baclofen (Baclofen) 10 Mg Tab, 10 MG PO Q8HP PRN for spasms for 30 Days, MG 02/17/25 Nifedipine (Nifedipine ER) 30 Mg Tab, 60 MG PO, TAB 02/17/25 Multiple Vitamin (Multivitamins) Tab, 1 TAB PO DAILY, #90 TAB 3 Refills 05/29/24 Celecoxib (Celebrex) 200 Mg Cap, 200 MG PO HS, CAP 05/29/24 Betamethasone Dipropionate (Betamethasone Dipropionat) 0.05 % Oin, 1 APPLIC TD BID 05/29/24 Duloxetine HCl (Duloxetine HCl) 30 Mg Cap, 30 MG PO DAILY 05/29/24 Oxybutynin Chloride (Oxybutynin Chloride) 5 Mg Tab, 10 MG PO DAILY 05/29/24 Oxycodone HCl (Oxycodone Hydrochloride) 20 Mg Tab, 20 MG PO Q8HPRN PRN for PAIN SCALE 7 THRU 10 05/29/24 Valsartan-Hydrochlorothiazide (Diovan Hct) 160 /12.5 Tab, 1 TAB PO DAILY 05/15/23 Aripiprazole (Aripiprazole) 10 Mg Tab, 1 TAB PO DAILY 05/15/23 Metformin Hydrochloride (Metformin Hcl Er) 750 Mg Tab, 1 TAB PO DAILY, #90 TAB 3 Refills 05/12/23 Rosuvastatin Calcium (Crestor) 20 Mg Tab, 1 TAB PO DAILY for LOWER BAD CHOLESTEROL, #30 TAB 5 Refills 04/03/22 Pantoprazole Sodium Sesquihydr (Pantoprazole Sodium) 40 Mg Tab, 40 MG PO QAM for GERD, TAB PRIOR TO BREAKFAST PER PT SHOULD STILL BE ON THIS MEDICATION EVEN THOUGH NO P/UP HISTORY IN EXTERNAL MED 11/21/21 Empagliflozin (Jardiance) 10 Mg Tab, 10 MG PO DAILY for DIABETES, TAB 11/21/21 Escitalopram Oxalate (ESCITALOPRAM OXALATE) 20 Mg Tab, 1 TAB PO DAILY for DEPRESSION, #30 TAB 5 Refills 11/21/21 Metoprolol Succinate (Metoprolol Succinate Er) 50 Mg Tab, 50 MG PO DAILY for BLOOD PRESSURE NEW DISCHARGE MED IS METOPROLOL SUCC ER 25 MG BID, BUT PATIENT HAS NOT STARTED TAKING YET AND WOULD LIKE TO BE KEPT ON 50 MG DAILY 07/12/20 Mupirocin Calcium (Topical) (MUPIROCIN) 2 % Cre, 1 APPLIC TOP BID for Skin infection PER PATIENT'S HOME MED LIST: APPLY TOPICALLY TO OPEN WOUNDS BID PT USES 2 GRAMS BID 01/18/20 Docusate Sodium (DOCQLACE) 100 Mg Cap, 100 MG PO DAILY PRN for FOR CONSTIPATION, CAP 06/04/18 Albuterol Sulfate (VENTOLIN MDI) 90 Mcg Ih, 2 PUFF IN Q6HPRN PRN for SHORTNESS OF BREATH EXTERNAL MED HX SAYS Q4HR. PATIENT USES Q6HR PRN 06/04/18 Clopidogrel Bisulfate (CLOPIDOGREL) 75 Mg Tab, 75 MG PO DAILY 06/04/18 Discontinued Reported Medications Tizanidine Hydrochloride (Tizanidine Hcl) 4 Mg Tab, 4 MG PO BID 05/29/24 Current Medications Current Medications Medications (Trade) Dose Ordered Sig/Kitty Route PRN Reason Start Time Stop Time Status Last Admin Atorvastatin Calcium (Lipitor) 40 mg HS PO 02/18/25 22:00 02/18/25 21:45 Enoxaparin Sodium (Lovenox) 40 mg BID SC 02/19/25 10:00 02/19/25 10:29 Clonidine HCl (Catapres Tablet) 0.1 mg Q6HPRN PRN PO SBP>171-185 02/19/25 08:30 Clonidine HCl (Catapres Tablet) 0.3 mg Q6HPRN PRN PO EMERGENCY HTN SBP>201 02/19/25 09:00 Clonidine HCl (Catapres Tablet) 0.2 mg Q6HPRN PRN PO URGENT HTN SBP>186-200 02/19/25 09:00 Review of Systems Constitutional: Reports low-grade fever, chills, denies weight loss HEENT: Reports headache, nasal/maxillary sinus congestion, rhinorrhea, lacrimation Denies conjunctival pains, denies hearing or visual deficits NECK: Reports symptoms of neck pains or stiffness CHEST: Reports cough congestion, shortness of breath costochondral tenderness, RS: Reports cough, chest congestion, wheezing, shortness of breath, pleurisy CVS: Denies angina, shortness of breath, denies palpitation, : Denies heartburn, GE reflux, abdominal pains, N/V/D, melena : Reports symptoms of frequency, urgency, dysuria, denies hematuria BACK: Reports chronic back pains, radicular pains MS: Reports upper and lower back pains, generalized aches and pains from fibromyalgia SKIN: Multiple scabbed wounds of upper and lower extremities EXTs: Multiple scabbed lesions no edema, no rash, no open wounds EDI CONSULTANT: No altered mental status, fo richie deficits, no GTC seizures, weakness PSYCH: bipolar disorder -denies suicidal thoughts ENDO: Denies excessive thirst or urination, denies intolerance to cold or heat HEM/ONC: No symptoms of anemia, leukemia or multiple myeloma ALLERGY no symptoms of allergy Vital Signs Vital Signs Date Time Temp Pulse Resp B/P (MAP) Pulse Ox O2 Delivery O2 Flow Rate FiO2 02/19/25 18:28 70 18 145/86 02/19/25 17:00 98.6 95 98.6 02/19/25 08:00 Nasal Cannula* 2 28 Physical Exam Vitals Date Time Temp Pulse Resp B/P (MAP) Pulse Ox O2 Delivery O2 Flow Rate FiO2 02/16/25 22:28 97.9 80 19 130/74 (94) 99 Gen. appearance: Well-developed obese built middle-aged -[place] female appears generally weak, hypovolemic, tachypnea, short of breath, RR 19-22/per min HEENT Head normocephalic nontraumatic, Eyes-eyeball shrunken +2 Eyes EOMI, PERRLA, conjunctiva -pale, sclera nonicteric ENT-bilateral nasal congestion, no hyperemia of TM, Tongue/mucous membranes dry+2 NECK: Supple, trachea R off midline , carotid upstroke +2, JVD 1 cm, No thyroid or lymph node enlargement, no use of accessory muscles [id number] muscle tenderness present, ROM at C-spine full CHEST: Emphysematous, costochondral tenderness-present, Hypoventilation at bilateral bases RS: Clear breath sounds at anterior lung [place],Reduced breath sounds at bilateral bases Diffusely Scattered late inspiratory wheezes and rales at bilateral posterior lung [place] CVS: PMI-2 cm lateral to L MCL line in the sixth ICS, S1-S2/A1-A2 normal sinus, accentuated no gallop no murmur GI: Abdomen soft, obese +3, bowel sounds normoactive, no focal tenderness no mass or hernia, no hepatosplenomegaly Rectal: Stool OB negative no mass normal sphincter tone Genitourinary: Normal genitalia, no discharge, no focal lesions Back: CVA tenderness minimal, bilateral lumbosacral spinal muscle tenderness present Bilateral suprascapular point tenderness present, Straight leg raising test negative EXTs: Wounds Bilateral upper/lower extremities-multiple pigmented scabs of varying size Pulses:Distal pulses +2, no rash, no edema, capillary refill instant, Feels peripherally warm Joints: Reduced ROM at bilateral hips and knee Neuro: Patient is awake alert oriented 3, affect depressed cognitive intact DTR +2, No focal motor deficit, changes of diabetic peripheral neuropathy, Gait steady Diagnostic labs Test 02/16/2025 23:20 Range/Units Complete blood count White Blood Count 10.4 4.4-10.8 10^3/uL Red Blood Count 4.69 4.0-5.20 10^6/uL Hemoglobin 12.0 12.2-16.2 g/dL Hematocrit 36.7 36.0-46.0 % Mean Corpuscular Volume 78.3 80.0-100.0 fL Mean Corpuscular Hemoglobin 25.6 28.0-32.0 pg Mean Corpuscular Hemoglobin Concent 32.6 32.0-36.0 g/dL Red Cell Distribution Width 16.6 H 11.8-14.3 % Platelet Count 298 140-450 10^3/uL Mean Platelet Volume 8.2 6.9-10.8 fL Neutrophils (%) (Auto) 59.3 37.0-80.0 % Lymphocytes (%) (Auto) 25.7 10.0-50.0 % Monocytes (%) (Auto) 9.4 0.0-12.0 % Eosinophils (%) (Auto) 5.1 0.0-7.0 % Basophils (%) (Auto) 0.5 0.0-2.0 % Neutrophils # (Auto) 6.1 1.6-8.6 10 ^3/uL Lymphocytes # (Auto) 2.7 0.4-5.4 10 ^3/uL Monocytes # (Auto) 1.0 0-1.3 10 ^3/uL Eosinophils # (Auto) 0.5 0-0.8 10 ^3/uL Basophils # (Auto) 0.0 0-0.2 10 ^3/uL Nucleated Red Blood Cells 0.0 % Comprehensive metabolic panel 02/16/2025 23:20 Sodium Level 145 136-145 mmol/L Potassium Level 3.7 3.5-5.1 mmol/L Chloride Level 109 98-107 mmol/L Carbon Dioxide Level 27 20-30 mmol/L Anion Gap 9 5-15 Blood Urea Nitrogen 14 9-23 mg/dL Creatinine 0.84 0.550-1.02mg/dL Glomerular Filtration Rate Calc 77 >90 mL/min BUN/Creatinine Ratio 16.7 10.0-20.0 Serum Glucose 116 74-106 mg/dL Calcium Level 9.5 8.7-10.4 mg/dL Phosphorus Level 3.1 2.4-5.1 mg/dL Magnesium Level 1.6 1.6-2.6 mg/dL Total Bilirubin 0.2 0.2-1.0 mg/dL Aspartate Amino Transferase (AST) 15 13-40 U/L Alanine Aminotransferase (ALT) 15 7-40 U/L Alkaline Phosphatase 141 46-116 U/L Total Protein 7.5 5.7-8.2 g/dL Albumin 4.4 3.2-4.8 g/dL SEPSIS Sepsis Screen Physician Orders Admit (02/16/25 21:20) Nitroglycerin Sublingual (Ntrostat Subli (02/16/25 21:30) Morphine Sulfate Injection (02/16/25 21:30) Stat Ekg For Chest Pain (02/16/25 21:20) Notify Md Of Changes From Base (02/16/25 21:20) Nurse Extern For 24 Hours (02/16/25 21:20) Emergency Dysrhythmia Protocol (02/16/25 21:20) Rhythm Strips Once Every Shift (02/16/25 21:20) Oxygen By Nasal Cannula (02/16/25 21:20) Albuterol Inhaler (Ventolin Hfa) (02/16/25 21:30) Albuterol Medneb (Ventolin Medneb) (02/16/25 21:30) Clopidogrel Bisulfate (Plavix) (02/17/25 10:00) Docusate Sodium Capsule (Colace Capsule) (02/16/25 21:30) Duloxetine Hcl Capsule (Cymbalta Capsule (02/17/25 10:00) Empagliflozin (Jardiance) (02/17/25 10:00) Multiple Vitamin Tablet (Mvi Tab) (02/17/25 10:00) Oxybutynin Chloride Tablet (Ditropan Tab (02/17/25 10:00) Pantoprazole Tablet (Protonix Tablet) (02/17/25 07:00) Sildenafil Citrate (Revatio) (02/17/25 08:00) Valsartan (Diovan) (02/17/25 10:00) (Nf) Aripiprazole (02/17/25 10:00) Citalopram Tablet (Celexa Tablet) (02/17/25 10:00) Hydrochlorothiazide Tablet (Hydrochlorot (02/17/25 10:00) Blood Culture (02/16/25 21:29) Chest Two Views Routine (02/16/25 21:29) Insulin Lispro (Human) (Humalog) (02/17/25 07:00) Insulin Lispro (Human) (Humalog) (02/16/25 22:00) Hydrocortisone Succinate Inj (Solu-Caleb (02/16/25 22:30) Sod Chl 0.45% (Sodium Chloride 0.45% Via (02/16/25 21:45) Accucheck (02/16/25 22:00) Accucheck (02/17/25 07:00) Accucheck (02/17/25 11:30) Accucheck (02/17/25 17:00) Accucheck (02/17/25 22:00) Accucheck (02/18/25 07:00) Accucheck (02/18/25 11:30) Accucheck (02/18/25 17:00) Accucheck (02/18/25 22:00) Accucheck (02/19/25 07:00) Accucheck (02/19/25 11:30) Accucheck (02/19/25 17:00) Accucheck (02/19/25 22:00) Accucheck (02/20/25 07:00) Accucheck (02/20/25 11:30) Accucheck (02/20/25 17:00) Accucheck (02/20/25 22:00) Accucheck (02/21/25 07:00) Accucheck (02/21/25 11:30) Accucheck (02/21/25 17:00) Accucheck (02/21/25 22:00) Insulin Lantus (Glargine) (Lantus) (02/17/25 07:00) Electrocardigram (02/17/25 05:00) Electrocardigram (02/18/25 05:00) Electrocardigram (02/19/25 05:00) Electrocardigram (02/16/25 22:37) Electrocardigram (02/18/25 05:00) Electrocardigram (02/19/25 05:00) Hydromorphone Injection (Dilaudid Inject (02/16/25 22:15) Hydromorphone Injection (Dilaudid Inject (02/16/25 22:15) Ketorolac Injection (Toradol Injection) (02/16/25 22:15) Ceftriaxone 1gm/50ml (Rocephin) (02/16/25 23:00) Celecoxib Capsule (Celebrex Capsule) (02/17/25 22:00) Cardiac Diet-2gna,Lofat,Lochol (02/17/25 Breakfast) Betamethasone 0.05% Topical Cr (Diproson (02/17/25 10:00) Atorvastatin (Lipitor) (02/18/25 22:00) Enoxaparin Sodium (Lovenox) (02/19/25 10:00) Pharmacy Clarification: (02/18/25 12:53) Metoprolol Xl Succinate (Toprol Xl) (02/18/25 16:15) Clonidine Hcl Tablet (Catapres Tablet) (02/19/25 08:30) Clonidine Hcl Tablet (Catapres Tablet) (02/19/25 09:00) Clonidine Hcl Tablet (Catapres Tablet) (02/19/25 09:00) Vital Signs Date Time Temp Pulse Resp B/P (MAP) Pulse Ox O2 Delivery O2 Flow Rate FiO2 02/19/25 18:28 70 18 145/86 02/19/25 17:58 66 18 149/88 02/19/25 17:00 98.6 66 18 149/88 (108) 95 98.6 02/19/25 13:00 98.0 59 18 154/76 (102) 97 98.0 02/19/25 11:01 59 18 154/76 02/19/25 10:31 56 18 159/80 02/19/25 10:29 56 159/80 02/19/25 10:29 159/80 02/19/25 10:28 159/80 02/19/25 09:00 97.8 56 18 159/80 (106) 98 97.8 02/19/25 08:00 Nasal Cannula* 2 28 02/19/25 08:00 51 02/19/25 05:00 97.9 61 19 148/75 (99) 98 97.9 02/19/25 01:00 97.9 59 19 151/80 (103) 96 97.9 02/18/25 21:00 98.8 59 18 136/63 (87) 98 98.8 02/18/25 20:00 62 17 96 Room Air* 0 02/18/25 20:00 62 02/18/25 20:00 Nasal Cannula* 2 28 02/18/25 18:47 58 16 100 02/18/25 18:41 99 Room Air* 0 21 02/18/25 18:41 54 18 99 02/18/25 18:41 99 Room Air 0.0 02/18/25 17:14 63 128/75 02/18/25 16:50 98.0 63 17 128/78 (95) 96 98.0 02/18/25 13:00 98.3 54 16 131/67 (88) 97 98.3 02/18/25 10:53 97 Room Air 0.0 02/18/25 10:53 97 Room Air* 0 02/18/25 10:07 122/68 02/18/25 10:00 57 122/68 02/18/25 09:00 98.6 57 16 122/68 (86) 96 98.6 02/18/25 08:30 Nasal Cannula* 2 28 02/18/25 08:00 54 02/18/25 07:00 63 17 129/65 02/18/25 06:26 64 18 128/63 02/18/25 05:00 98.3 64 19 128/63 (84) 95 98.3 02/18/25 01:00 98.2 75 17 125/64 (84) 98 98.2 02/18/25 00:49 75 18 125/64 02/18/25 00:19 66 17 125/60 02/17/25 21:00 97.9 60 19 122/62 (82) 100 97.9 02/17/25 20:02 64 16 100 02/17/25 20:00 60 18 98 Nasal Cannula* 2 28 02/17/25 20:00 60 02/17/25 19:56 97 Room Air* 0 21 02/17/25 19:56 97 Room Air 0.0 02/17/25 19:56 64 16 97 02/17/25 16:41 97.3 71 18 132/68 (89) 96 97.3 02/17/25 12:30 98.2 68 16 142/74 (96) 98 98.2 02/17/25 08:42 146/67 02/17/25 08:40 67 146/67 02/17/25 08:38 98.0 67 14 146/69 (94) 98 98.0 02/17/25 08:34 146/69 02/17/25 08:00 67 Laboratory Tests Test 02/16/25 23:20 02/17/25 07:05 02/18/25 05:33 White Blood Count 10.4 10^3/uL (4.4-10.8) 8.9 10^3/uL (4.4-10.8) 6.8 10^3/uL (4.4-10.8) Medications Medications Dose Ordered Sig/Kitty Route Start Time Stop Time Status Last Admin Dose Admin Enoxaparin Sodium 40 mg BID SC 02/19/25 10:00 02/19/25 10:29 Results Labs Test 02/19/25 16:50 02/18/25 05:33 02/18/25 01:55 02/17/25 22:49 Range/Units POC Glucose 127 H 70-106 mg/dl White Blood Count 6.8 4.4-10.8 10^3/uL Red Blood Count 4.42 4.0-5.20 10^6/uL Hemoglobin 11.3 L 12.2-16.2 g/dL Hematocrit 34.9 L 36.0-46.0 % Mean Corpuscular Volume 79.0 L 80.0-100.0 fL Mean Corpuscular Hemoglobin 25.6 L 28.0-32.0 pg Mean Corpuscular Hemoglobin Concent 32.4 32.0-36.0 g/dL Red Cell Distribution Width 16.2 H 11.8-14.3 % Platelet Count 290 140-450 10^3/uL Mean Platelet Volume 8.2 6.9-10.8 fL Neutrophils (%) (Auto) 75.1 37.0-80.0 % Lymphocytes (%) (Auto) 19.3 10.0-50.0 % Monocytes (%) (Auto) 4.7 0.0-12.0 % Eosinophils (%) (Auto) 0.2 0.0-7.0 % Basophils (%) (Auto) 0.7 0.0-2.0 % Neutrophils # (Auto) 5.1 1.6-8.6 10 ^3/uL Lymphocytes # (Auto) 1.3 0.4-5.4 10 ^3/uL Monocytes # (Auto) 0.3 0-1.3 10 ^3/uL Eosinophils # (Auto) 0 0-0.8 10 ^3/uL Basophils # (Auto) 0 0-0.2 10 ^3/uL Nucleated Red Blood Cells 0.0 % Troponin I High Sensitivity 66 *H </=34 ng/L C-Reactive Protein High Sensitivity 1.04 H <1.0 mg/dL Test 02/17/25 07:05 02/16/25 23:20 02/16/25 23:00 Range/Units Sodium Level 142 136-145 mmol/L Potassium Level 4.1 3.5-5.1 mmol/L Chloride Level 107 98-107 mmol/L Carbon Dioxide Level 26 20-31 mmol/L Anion Gap 9 5-15 Blood Urea Nitrogen 13 9-23 mg/dL Creatinine 0.70 0.550-1.02 mg/dL Glomerular Filtration Rate Calc 95 >90 mL/min BUN/Creatinine Ratio 18.6 10.0-20.0 Serum Glucose 144 H 74-106 mg/dL Hemoglobin A1c 6.6 H <5.7 % A1C Calcium Level 9.1 8.7-10.4 mg/dL Total Bilirubin 0.3 0.2-1.0 mg/dL Aspartate Amino Transferase (AST) 11 L 13-40 U/L Alanine Aminotransferase (ALT) 14 7-40 U/L Alkaline Phosphatase 129 H 46-116 U/L Total Protein 7.2 5.7-8.2 g/dL Albumin 4.1 3.2-4.8 g/dL D-Dimer, Quantitative 0.43 0.0-0.49 mg/L FEU Phosphorus Level 2.7 2.4-5.1 mg/dL Magnesium Level 1.6 1.6-2.6 mg/dL Triglycerides Level 134 < 150 mg/dL Cholesterol Level 158 < 200 mg/dL LDL Cholesterol 86 < 100 mg/dL HDL Cholesterol 57 40-59 mg/dL Lipase 31 12-53 U/L Urine Color Colorless Yellow Urine Clarity Turbid H Clear Urine pH 6.5 5.0-9.0 Urine Specific [place] 1.008 1.001-1.035 Urine Protein Trace H Negative Urine Ketones Negative Negative Urine Blood Trace H Negative /uL Urine Nitrite Negative Negative Urine Bilirubin Negative Negative Urine Urobilinogen Normal Negative mg/dL Urine Leukocyte Esterase 3+ Negative /uL Urine RBC 6 0 - 4 /hpf Urine WBC Clumps Present None Seen /hpf Urine Microscopic WBC 248 H 0-5 /HPF Urine Squamous Epithelial Cells None seen <5 /hpf Urine Bacteria None seen None Seen /hpf Urine Glucose Normal Normal mg/dL Microbiology Date/Time Source Procedure Growth Status 02/16/25 23:30 Blood Blood Culture - Preliminary NO GROWTH AFTER 48 HOURS OF INCUBATION. Resulted 02/16/25 23:00 Urine - Catheterized Urine Culture - Final Escherichia coli Complete Primary Diagnosis Acute exacerbation of COPD Failed to Out patient oral antibiotics Hypovolemic hyperchloremia Admitting Diagnosis: 1. Acute asthmatic bronchitis complicated by Acute exacerbation of COPD 2. Hypovolemic hyperchloremia 3. Acute chest pain 4. Urinary tract infection 5. Acute flare-up of fibromyalgia Fairly well-controlled NIDDM 2' Diagnosis/Comorbidities Hypertensive CAD Hypercholesterolemia Morbid obesity in adult with current BMI 35-40 kg per m2 Comprehensive Clinical Assessment 1) Acute asthmatic bronchitis complicated by Acute exacerbation of COPD -failed to oral and IV antibiotics as outpatient Status: Acute Present at the time of admission: Yes Problem specific AP: - Based on history and physical exam-late inspiratory wheezes at bilateral bases Known history of COPD from passive exposure to smoking -failed to oral and IV antibiotics as outpatient * Recommended sputum and blood cultures, * Recommended patient to receive IV antibiotics and bronchodilator Med-Neb treatments, IV steroids as tolerated (2) Acute chest pain -rule out DC - costochondritis/musculoskeletal Status: Acute Present at the time of admission: Yes Problem specific AP: * Reports to have mid substernal chest tightness with local costochondral tenderness * With pleuritic nature of chest pain, and inducible chest pain tenderness, Etiologic cause sounds more in favor of chest pain off musculoskeletal origin * On other hand patient has significant cardiac risk factors such as Known history of NIDDM, hypertension, hypercholesterolemia, obesity Passive exposure to smoking and known history of CAD status post PCI to RCA 2007, her chest pain could be possibly from cardiac origin * Recommended serial EKGs/enzymes and telemetry observation * Recommended SL NTG and morphine for anginal pains * We will resume antihypertensives, statins and beta sandy as tolerated * Consider 2D echo (3) Urinary tract infection Status: Acute Present at the time of admission: Yes Problem specific AP: * Her symptoms are suggestive of recurrence of UTI from history of stricture of urethra * Recommended patient urine and blood cultures * Recommended IV antibiotics * (4) Acute flare-up of fibromyalgia Triggered by lower respiratory infection Status: Acute on chronic Assessment & Plan: Known history of fibromyalgia * Acute flare up triggered by viral upper respiratory infection * Reports severe generalized aches and pains including chest upper and Lower back * Recommended IV steroids, non-steroidals, pain management (3) Hypovolemia Status: Acute Assessment & Plan: The patient is noted to have hypovolemia on physical exam * Recommended IV hypotonic saline (4) Hypercholesterolemia Status: Chronic Assessment & Plan: Known history of hypercholesterolemia Recommended patient to receive low-cholesterol diet and Lipitor Ecotrin. Side effects of medications are discussed with the patient (5) Well controlled hypertension Status: Chronic Assessment & Plan: Known history of hypertension for long time Complicated by severe concentric LVH on 2D echo-09/11/2020 Currently on beta-blockers Recommend ARBs since patient had allergic reactions to Canelo I We will continue patient on Diovan 160 mg p.o. b.i.d. (7) Well controlled diabetes mellitus Status: Chronic Assessment & Plan: Her diabetes remains under fair control. Her hemoglobin A1c runs between 6.6% a. Obesity and insulin resistance b. Noncompliance with diet and medications c stress from acute DC, UTI Discussed with patient about all pertinent etiologic causes of uncontrolled NIDDM Full diabetic education is given to patient a, 1800-calorie ADA diet b. Combination of basal and short acting insulin therapy c. Intentional weight loss of 75 lbs is through diet and exercise d. Monitoring hemoglobin A1c,, CMP every 3 months lipid panel every 6 months 24-hour urine check for microalbuminuria on annual basis e. 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 Report to podiatry for any sign of inflammation or injury to foot (8) Morbid obesity in adult with current BMI >35-40 Kg/m Status: Chronic Assessment & Plan Her current BMI is high at 39.7 kg/m reflecting Her current body weight exceeds by 80-90 LBS to ideal body weight Informed patient about complications of obesity which includes but not limited to a. Hypoxia, cardiac arrhythmias, pulmonary embolism, embolic CVA, sudden cardiac The patient is recommended weight loss of 80 pounds through Low-carb low calorie 1800-calorie diet and aerobic exercises as tolerated Recommended patient to follow a. daily weight, b. ADA 1800-calorie diet-40% calories from breakfast 30% calories from lunch and dinner each, avoid carbonated soda c. Recommended aerobic exercises like walking 1-5 miles per day, riding on a stationary bike for 1-2 hours Plan Admit to telemetry floor Obtain sputum, urine and blood cultures PRN temp >101.5 Place patient on IV ceftriaxone- broad-spectrum IV antibiotics and bronchodilator Med-Neb treatment Obtain EKGs p.r.n. chest pain Place patient on NTG, morphine Place patient on Lipitor and Plavix Continue metoprolol 50 mg PO twice daily Recommend antiplatelet agent like Lovenox Recommended IV ketorolac, IV hydromorphone for pain management Consider 2D echo exam Careful IV hydration Accu-Chek q.a.c. and HS Recommend injection Lantus 10 units subQ daily Recommend Humalog moderate dose sliding scale VTE the precautions Local application of Bactroban over bilateral upper extremity The patient and/or family is well informed by me about 1. Clinical impression, treatment plans, side effects of medications, course of the disease And prognosis 2. All patient's and concerns raised by patient or family are satisfactorily addressed by me Plan discussed with: Patient Code Visit Code Visit Total Time (mins): 120 SULY CARDOZO MD Feb 16, 2025 22:31
[2025-02-17] VITALS (12 sets, daily range): BP systolic 122–146; BP diastolic 62–75; PULSE 60–77; RESP 14–19; TEMP 97.3–98.2; O2SAT 96–100
[2025-02-17 00:10] LABS: Nucleated Red Blood Cells % 0.0 %
[2025-02-17 00:11] LABS: Hematocrit 36.7 % (36.0-46.0); Hemoglobin 12.0 g/dL (12.2-16.2); Mean Corpuscular Hemoglobin 25.6 pg (28.0-32.0); Mean Corpuscular Volume 78.3 fL (80.0-100.0)
[2025-02-17 00:18] LABS: Alanine Aminotransferase 15 U/L (7-40); Albumin 4.4 g/dL (3.2-4.8); Anion Gap 9 (5-15); BUN/Creatinine Ratio 16.7 (10.0-20.0); Blood Urea Nitrogen 14 mg/dL (9-23); Calcium 9.5 mg/dL (8.7-10.4); Carbon Dioxide 27 mmol/L (20-31); Cholesterol 158 mg/dL (< 200); HDL Cholesterol 57 mg/dL (40-59); Potassium 3.7 mmol/L (3.5-5.1); Sodium 145 mmol/L (136-145); Total Protein 7.5 g/dL (5.7-8.2); Triglycerides 134 mg/dL (< 150)
[2025-02-17 00:26] LABS: Alkaline Phosphatase 141 U/L (46-116); Bilirubin, Total 0.2 mg/dL (0.2-1.0); Chloride 109 mmol/L (98-107); Glucose 116 mg/dL (74-106); Magnesium 1.6 mg/dL (1.6-2.6)
[2025-02-17 00:39] LABS: Lipase 31 U/L (12-53)
[2025-02-17 01:47] LABS: Urine Protein, UAD TRACE (Negative); Urine WBC Clumps PRESENT /hpf (None Seen)
[2025-02-17] MEDS ORDERED: NIFE1TAB36 PO (03:19)
[2025-02-17] MEDS ORDERED: BACL10TA PO (03:20)
--- NOTE | 2025-02-17 04:01 | ECG ---
[facility] Test Date: 2025-02-16 Test Time: 23:03:39 Pat Name: CANDELARIA HOOVER Department: Respiratoy Room: 0246T B Gender: F [employer] Founder: NIOCLE : 1960 Requested By: SULY CARDOZO Order Number: [id number] Reading MD: Ruslan Mayo Measurements Intervals [place] Rate: 72 P: 60 CO: 148 QRS: 40 QRSD: 83 T: 156 QT: 414 QTc: 454 Interpretive Statements Sinus rhythm Left atrial enlargement Probable anteroseptal infarct, recent Lateral leads are also involved Electronically Signed On 02-17-2025 17:38:09 PST by Ruslan Mayo Please click the below link to view image of tracing.
[2025-02-17] MEDS: PANTOPRAZOLE 40 MG TAB PO SCH (05:35)
[2025-02-17] MEDS: ALBUTEROL SULF 2.5 MG/0.5ML(0.5%) NEB SOLN NEB PRN (06:08)
[2025-02-17] MEDS: INSULIN LANTUS (GLARGINE) 1 /0.01ml (100units/ml) SC SCH (06:25)
[2025-02-17] MEDS: INSULIN LISPRO (HUMAN) 100 UNITS/ML ML SC SCH (06:26)
[2025-02-17 07:53] LABS: Hemoglobin 11.5 g/dL (12.2-16.2); Mean Corpuscular Volume 78.6 fL (80.0-100.0); Nucleated Red Blood Cells % 0.0 %
[2025-02-17 07:55] LABS: Hematocrit 36.0 % (36.0-46.0); Mean Corpuscular Hemoglobin 25.0 pg (28.0-32.0)
--- NOTE | 2025-02-17 08:10 | DVH ---
CHEST RADIOGRAPH Indication: Pneumonia Technique: Frontal and lateral view of the chest was obtained Comparison: XY CHEST TWO VIEWS ROUTINE on DOS: 01/16/25, XY CHEST TWO VIEWS ROUTINE on DOS: 01/03/25, XY CHEST TWO VIEWS ROUTINE on DOS: 07/30/24, XY CHEST TWO VIEWS ROUTINE on DOS: 05/30/24, XR CHEST 2 VIEW on DOS: 05/18/24 FINDINGS: Lines and Tubes: None Lungs: Increased interstitial prominence. This may represent pulmonary vascular congestion and/or viral pneumonia. Pleura: No effusion.No pneumothorax. Cardiomediastinal contours: Cardiomegaly. Bones: Unremarkable IMPRESSION: Increased interstitial prominence. This may represent pulmonary vascular congestion and/or viral pneumonia.
[2025-02-17 08:31] LABS: Alanine Aminotransferase 14 U/L (7-40); Albumin 4.1 g/dL (3.2-4.8); Anion Gap 9 (5-15); BUN/Creatinine Ratio 18.6 (10.0-20.0); Blood Urea Nitrogen 13 mg/dL (9-23); Calcium 9.1 mg/dL (8.7-10.4); Carbon Dioxide 26 mmol/L (20-31); Potassium 4.1 mmol/L (3.5-5.1); Sodium 142 mmol/L (136-145); Total Protein 7.2 g/dL (5.7-8.2)
[2025-02-17 08:33] LABS: Alkaline Phosphatase 129 U/L (46-116); Bilirubin, Total 0.3 mg/dL (0.2-1.0); Chloride 107 mmol/L (98-107); Glucose 144 mg/dL (74-106)
[2025-02-17] MEDS: hydroCHLOROthiazide 25 MG TAB PO SCH (08:34)
[2025-02-17] MEDS: CLOPIDOGREL BISULFATE 75 MG TAB PO SCH (08:37)
[2025-02-17] MEDS: EMPAGLIFLOZIN 10 MG TAB PO SCH (08:37)
[2025-02-17] MEDS: ATORVASTATIN 20 MG TAB PO SCH (08:38)
[2025-02-17] MEDS: CITALOPRAM HYDROBR 20 MG TAB PO SCH (08:39)
[2025-02-17] MEDS: METOPROLOL SUCCINATE XL 50 MG TAB PO SCH (08:40)
[2025-02-17] MEDS: OXYBUTYNIN CHL 5 MG TAB PO SCH (08:41)
[2025-02-17] MEDS: VALSARTAN 80 MG TAB PO SCH (08:42)
[2025-02-17] MEDS: MULTIPLE VITAMIN TAB PO SCH (08:43)
[2025-02-17] MEDS: SILDENAFIL CITRATE 20 MG TAB PO SCH (08:45)
[2025-02-17] MEDS: KETOROLAC TROMETH 30 MG/ML 1ML VIAL IV PRN (08:52)
[2025-02-17] MEDS ORDERED: BETAMETHASONE DIPROP0.05% TOPICAL CREAM 15GM TOP SCH (10:00)
[2025-02-17] MEDS: BETAMETHASONE DIPROP0.05% TOPICAL CREAM 15GM TOP SCH (10:00)
--- NOTE | 2025-02-17 22:35 | DVHPN2 ---
Progress Note - Dictate Date Seen: Feb 17, 2025 Has the PT tested + for MRSA If YES, has PT been informed?: No Medical Necessity Reason Pt with a Central, PICC or Fol: No Medical Necessity Reason Management of COPD IV antibiotics, IV steroids Bronchodilators med neb treatments IV hydration Subjective The Patient is currently being treated for symptoms of chest congestion cough Chest tightness and wheezing from acute exacerbation of COPD * She seems to be responding to current measures like IV antibiotics, steroids and bronchodilators med neb treatments * Her 12 lead EKG- raised concern about possible anteroseptal OR but indeterminate * Patient had coronary angiogram unremarkable for occlusive CAD except PCI to RCA since 2007-patent stent Overnight events are reviewed through medical chart and case discussion with patient's assigned RN while making rounds on patient on the day of service vital signs Vital Sign Date Time Temp Pulse Resp B/P (MAP) Pulse Ox O2 Delivery O2 Flow Rate FiO2 02/17/25 21:00 97.9 60 19 122/62 (82) 100 97.9 02/17/25 19:56 Room Air* 0 21 Total Intake and Output 02/16/25 02/16/25 02/17/25 15:00 23:00 07:00 Intake Total 440 ml Balance 440 ml medications Current Medications Medications Dose Ordered Sig/Kitty Route Start Time Stop Time Status Last Admin Dose Admin Nitroglycerin 0.4 mg Q5MINP PRN SL 02/16/25 21:30 Hold Morphine Sulfate 2 mg Q30M PRN IV 02/16/25 21:30 Albuterol 90 mcg Q6HPRN PRN IN 02/16/25 21:30 Albuterol 2.5 mg Q4HPRN PRN NEB 02/16/25 21:30 02/17/25 19:56 2.5 MG Clopidogrel Bisulfate 75 mg DAILY PO 02/17/25 10:00 02/17/25 08:37 75 MG Docusate Sodium 100 mg DAILYP PRN PO 02/16/25 21:30 Duloxetine HCl 30 mg DAILY PO 02/17/25 10:00 02/17/25 08:37 30 MG Empaglifozin 10 mg DAILY PO 02/17/25 10:00 02/17/25 08:37 10 MG Metoprolol Succinate 50 mg DAILY PO 02/17/25 10:00 02/17/25 08:40 50 MG Multivitamins 1 tab DAILY PO 02/17/25 10:00 02/17/25 08:43 1 TAB Oxybutynin Chloride 10 mg DAILY PO 02/17/25 10:00 02/17/25 08:41 10 MG Pantoprazole Sodium 40 mg QAM PO 02/17/25 07:00 02/17/25 05:35 40 MG Sildenafil Citrate 20 mg TID@08,14,20 PO 02/17/25 08:00 02/17/25 21:28 20 MG Valsartan 160 mg DAILY PO 02/17/25 10:00 02/17/25 08:42 160 MG Patient Own Medication 1 tab DAILY PO 02/17/25 10:00 Betamethasone Dipropion Augmented 1 applic BID TOP 02/17/25 10:00 02/17/25 10:00 1 APPLIC Celecoxib 200 mg HS PO 02/17/25 22:00 Citalopram Hydrobromide 40 mg DAILY PO 02/17/25 10:00 02/17/25 08:39 40 MG Atorvastatin Calcium 40 mg DAILY PO 02/17/25 10:00 02/17/25 08:38 40 MG Hydrochlorothiazide 12.5 mg DAILY PO 02/17/25 10:00 02/17/25 08:34 12.5 MG Insulin Human Lispro AC SC 02/17/25 07:00 02/17/25 17:00 3 UNITS Insulin Human Lispro HS SC 02/16/25 22:00 Hydrocortisone Sodium Succinate 50 mg Q12HR IV 02/16/25 22:30 02/17/25 08:43 50 MG Sodium Chloride 1,000 ml @ 50 mls/hr Q20H IV 02/16/25 21:45 02/17/25 17:50 50 MLS/HR Clonidine HCl UD PRN PO 02/16/25 21:45 Insulin Glargine 10 units QAM SC 02/17/25 07:00 02/17/25 06:25 10 UNITS Ceftriaxone Sodium 100 ml @ 100 mls/hr DAILY@2100 IV 02/16/25 23:00 02/17/25 21:28 100 MLS/HR Hydromorphone HCl 0.6 mg Q4HP PRN IV 02/16/25 22:15 Hydromorphone HCl 1 mg Q4HP PRN IV 02/16/25 22:15 Ketorolac Tromethamine 15 mg Q6HPRN PRN IV 02/16/25 22:15 02/21/25 22:14 02/17/25 14:32 15 MG objective Gen. appearance: Well-developed, morbidly obese middle-aged -[place] female appears generally weak, hypovolemic, tachypnea, short of breath, RR 16-20 per min HEENT Head normocephalic nontraumatic, Eyes-eyeball shrunken +1 Eyes EOMI, PERRLA, conjunctiva -pale, sclera nonicteric ENT-bilateral nasal congestion, no hyperemia of TM, Tongue/mucous membranes dry NECK: Supple, trachea R off midline , carotid upstroke +2, JVD 1 cm, No thyroid or lymph node enlargement, no use of accessory muscles U-gddfp-orsqfdmcek muscle tenderness present, ROM at C-spine full CHEST: Emphysematous, costochondral tenderness, Hypoventilation at bilateral bases RS: Clear breath sounds at anterior lung [place],Reduced breath sounds at bilateral bases Diffusely Scattered late inspiratory wheezes and rales at bilateral posterior lung cal[place]u and bases CVS: PMI-2 cm lateral to L MCL line in the sixth ICS, S1-S2/A1-A2 normal sinus, accentuated no gallop no murmur GI: Abdomen soft, obese +4, bowel sounds normoactive, no focal tenderness no mass or hernia, no hepatosplenomegaly Rectal: Deferred Genitourinary: Normal genitalia, no discharge, no focal lesions Back: CVA tenderness minimal, bilateral lumbosacral spinal muscle tenderness present Bilateral suprascapular point tenderness present, Straight leg raising test negative EXTs: Wounds Bilateral upper/lower extremities-multiple pigmented scabs of varying size Pulses:Distal pulses +2, no rash, no edema, capillary refill instant, Feels peripherally warm Joints: Reduced ROM at bilateral hips and knee Neuro: Patient is awake alert oriented 3, affect depressed cognitive intact DTR +2, No focal motor deficit, changes of diabetic peripheral neuropathy, gait NE laboratory and microbiology Laboratory Tests 02/17/25 07:05 Test 02/17/25 07:05 Range/Units Serum Glucose 144 H 74-106 mg/dL Problem List Primary Diagnosis 1. Acute exacerbation of COPD Triggered by acute asthmatic bronchitis Failed to Out patient oral antibiotics 2. Acute chest pain Rule out OR Known history of CAD, hypertension hypercholesterolemia NIDDM 3. Urinary tract infection 4. Acute flare-up of fibromyalgia 2' Diagnosis/Comorbidities Hypertensive CAD Hypercholesterolemia Morbid obesity in adult with current BMI 35-40 kg / m2 Assessment/Plan Comprehensive Clinical Assessment 1) Acute exacerbation of COPD Triggered by Acute asthmatic bronchitis Failed outpatient measures Status: Acute Present at the time of admission: Yes Problem specific AP: - Based on history and physical exam-late inspiratory wheezes at bilateral bases Known history of COPD from passive exposure to smoking * Waiting sputum and blood cultures, * Continued patient to receive IV antibiotics and bronchodilator Med-Neb treatments, IV steroids as tolerated (2) Acute chest pain Ruled out OR Status: Acute Present at the time of admission: Yes Problem specific AP: * Known significant cardiac history and risk factors * History of CAD, status post PCI to RCA * Multiple angiogram including recent most 11/2022- No new occlusive lesions * Recommended to continue Plavix, Lovenox (3) Hypovolemia Status: Acute Assessment & Plan: The patient is noted to have hypovolemia on physical exam * Recommended IV hypotonic saline (4) Acute urinary tract infection Status: Acute Assessment & Plan: * known history of stricture of urethra and recurrent UTI * Urine cultures have been sent to microbiology * currently on IV antibiotics * Consider modifying IV antibiotics once culture results are out (5) Acute flare-up of fibromyalgia Triggered by lower respiratory infection Status: Acute on chronic Assessment & Plan: Known history of fibromyalgia * Acute flare up triggered by viral upper respiratory infection * Reports severe generalized aches and pains including chest upper and Lower back * Recommended IV steroids, non-steroidals, pain management (6) Hypercholesterolemia Status: Chronic Assessment & Plan: Known history of hypercholesterolemia Recommended patient to receive low-cholesterol diet and Lipitor Ecotrin. Side effects of medications are discussed with the patient (5) Well controlled hypertension Status: Chronic Assessment & Plan: Known history of hypertension for long time Complicated by severe concentric LVH on 2D echo Currently on beta-blockers and Diovan (7) Well controlled diabetes mellitus Status: Chronic Assessment & Plan: Her diabetes remains under fair control. Her hemoglobin A1c runs between 6.6% a. Obesity and insulin resistance b. Noncompliance with diet and medications c stress from acute OR, UTI Discussed with patient about all pertinent etiologic causes of uncontrolled NIDDM Full diabetic education is given to patient a, 1800-calorie ADA diet b. Combination of basal and short acting insulin therapy c. Intentional weight loss of 75 lbs is through diet and exercise d. Monitoring hemoglobin A1c,, CMP every 3 months lipid panel every 6 months 24-hour urine check for microalbuminuria on annual basis e. 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 Report to podiatry for any sign of inflammation or injury to foot (8) Morbid obesity in adult with current BMI >35-40 Kg/m Status: Chronic Assessment & Plan Her current BMI is high at 38 kg/m reflecting Her current body weight exceeds by 75 LBS to ideal body weight Informed patient about complications of obesity which includes but not limited to a. Hypoxia, cardiac arrhythmias, pulmonary embolism, embolic CVA, sudden cardiac The patient is recommended weight loss of 80 pounds through Low-carb low calorie 1800-calorie diet and aerobic exercises as tolerated Recommended patient to follow a. daily weight, b. ADA 1800-calorie diet-40% calories from breakfast 30% calories from lunch and dinner each, avoid carbonated soda c. Recommended aerobic exercises like walking 1-5 miles per day, riding on a stationary bike for 1-2 hours Treatment plans as of today Continue hospitalization at telemetry floor Obtain sputum and blood cultures PRN temp >101.5 Obtain urine culture results Continue patient on broad-spectrum IV antibiotics and bronchodilator Med-Neb treatment Obtain EKGs p.r.n. chest pain Place patient on NTG, morphine Place patient on Lipitor and Plavix Continue metoprolol 50 mg PO twice daily Recommend antiplatelet agent like Plavix and Lovenox Reconciled home medication Careful IV hydration Accu-Chek q.a.c. and HS Humalog sliding scale VTE the precautions The patient and/spouse is well informed by me about 1. Clinical impression, treatment plans, side effects of medications, course of the disease And fair to guarded prognosis 2. All patient's and concerns raised by patient or family are satisfactorily addressed by me Prognosis fair Dietary Evaluation Review Recommendations by RD: Dietary education by SHELLIE, Decrease Calorie Intake Expected Outcomes/Goals: Recommended patient to intentionally lose 75 lbs from CBW through ADA 1800 calorie diet and exercise as tolerated Goal is to avert obesity related comorbidities such as obesity hypoventilation, tachycardia, embolic events, CVA, PE and sudden deaths Plan discussed with: Patient, Spouse Total Time (mins): 45 SULY CARDOZO MD Feb 17, 2025 22:35
[2025-02-17] MEDS: CELECOXIB 100 MG CAP PO SCH (22:53)
[2025-02-18] VITALS (11 sets, daily range): BP systolic 122–136; BP diastolic 63–78; PULSE 54–75; RESP 16–19; TEMP 98–98.8; O2SAT 95–100
[2025-02-18] MEDS: HYDROmorphone HCL 2 MG/ML VL/or syr IV PRN (00:19)
[2025-02-18 06:01] LABS: Hemoglobin 11.3 g/dL (12.2-16.2); Mean Corpuscular Volume 79.0 fL (80.0-100.0); Nucleated Red Blood Cells % 0.0 %
[2025-02-18 06:02] LABS: Hematocrit 34.9 % (36.0-46.0); Mean Corpuscular Hemoglobin 25.6 pg (28.0-32.0)
[2025-02-18] MEDS: ENOXAPARIN SOD 60 MG/0.6 ML SYRINGE SC SCH (12:50)
[2025-02-18] MEDS: METOPROLOL SUCCINATE XL 50 MG TAB PO SCH (17:14)
[2025-02-18] MEDS: ATORVASTATIN 20 MG TAB PO SCH (21:45)
--- NOTE | 2025-02-18 22:16 | DVHPN2 ---
Progress Note - Dictate Date Seen: Feb 18, 2025 Has the PT tested + for MRSA If YES, has PT been informed?: No Medical Necessity Reason Pt with a Central, PICC or Fol: No Medical Necessity Reason Management of COPD exacerbation IV antibiotics SubQ Lovenox for possible CT Subjective Patient is currently being treated for symptoms of chest congestion cough Chest tightness and wheezing * She is responding to current measures like IV antibiotics, steroids and Bronchodilators med neb treatments * 12 lead EKG- raised concern about possible anteroseptal CT * Overnight events are reviewed through medical chart and case discussion with patient's assigned RN while making rounds on patient on the day of service vital signs Vital Sign Date Time Temp Pulse Resp B/P (MAP) Pulse Ox O2 Delivery O2 Flow Rate FiO2 02/18/25 21:00 98.8 59 18 136/63 (87) 98 98.8 02/18/25 18:41 Room Air* 0 21 Total Intake and Output 02/17/25 02/17/25 02/18/25 15:00 23:00 07:00 Intake Total 1100 ml 950 ml Balance 1100 ml 950 ml medications Current Medications Medications Dose Ordered Sig/Kitty Route Start Time Stop Time Status Last Admin Dose Admin Nitroglycerin 0.4 mg Q5MINP PRN SL 02/16/25 21:30 Hold Morphine Sulfate 2 mg Q30M PRN IV 02/16/25 21:30 Albuterol 90 mcg Q6HPRN PRN IN 02/16/25 21:30 Albuterol 2.5 mg Q4HPRN PRN NEB 02/16/25 21:30 02/18/25 18:41 2.5 MG Clopidogrel Bisulfate 75 mg DAILY PO 02/17/25 10:00 02/18/25 10:07 75 MG Docusate Sodium 100 mg DAILYP PRN PO 02/16/25 21:30 Duloxetine HCl 30 mg DAILY PO 02/17/25 10:00 02/18/25 10:06 30 MG Empaglifozin 10 mg DAILY PO 02/17/25 10:00 02/18/25 10:08 10 MG Multivitamins 1 tab DAILY PO 02/17/25 10:00 02/18/25 10:09 1 TAB Oxybutynin Chloride 10 mg DAILY PO 02/17/25 10:00 02/18/25 10:08 10 MG Pantoprazole Sodium 40 mg QAM PO 02/17/25 07:00 02/18/25 06:25 40 MG Sildenafil Citrate 20 mg TID@08,14,20 PO 02/17/25 08:00 02/18/25 20:13 20 MG Valsartan 160 mg DAILY PO 02/17/25 10:00 02/18/25 10:07 160 MG Patient Own Medication 1 tab DAILY PO 02/17/25 10:00 Betamethasone Dipropion Augmented 1 applic BID TOP 02/17/25 10:00 02/17/25 10:00 1 APPLIC Celecoxib 200 mg HS PO 02/17/25 22:00 02/18/25 21:45 200 MG Citalopram Hydrobromide 40 mg DAILY PO 02/17/25 10:00 02/18/25 10:07 40 MG Hydrochlorothiazide 12.5 mg DAILY PO 02/17/25 10:00 02/17/25 08:34 12.5 MG Insulin Human Lispro AC SC 02/17/25 07:00 02/18/25 06:33 3 UNITS Insulin Human Lispro HS SC 02/16/25 22:00 02/17/25 22:55 4 UNITS Hydrocortisone Sodium Succinate 50 mg Q12HR IV 02/16/25 22:30 02/18/25 21:45 50 MG Sodium Chloride 1,000 ml @ 50 mls/hr Q20H IV 02/16/25 21:45 02/17/25 17:50 50 MLS/HR Clonidine HCl UD PRN PO 02/16/25 21:45 Insulin Glargine 10 units QAM SC 02/17/25 07:00 02/18/25 06:32 10 UNITS Ceftriaxone Sodium 100 ml @ 100 mls/hr DAILY@2100 IV 02/16/25 23:00 02/18/25 21:21 100 MLS/HR Hydromorphone HCl 0.6 mg Q4HP PRN IV 02/16/25 22:15 Hydromorphone HCl 1 mg Q4HP PRN IV 02/16/25 22:15 02/18/25 06:26 1 MG Ketorolac Tromethamine 15 mg Q6HPRN PRN IV 02/16/25 22:15 02/21/25 22:14 02/18/25 21:59 15 MG Atorvastatin Calcium 40 mg HS PO 02/18/25 22:00 02/18/25 21:45 40 MG Enoxaparin Sodium 40 mg BID SC 02/19/25 10:00 Metoprolol Succinate 25 mg DAILY PO 02/18/25 16:15 02/18/25 17:14 25 MG objective Gen. appearance: Well-developed, morbidly obese built middle-aged -[place]enian female Noted to be generally weak, recovering from COPD with exacerbation HEENT Head normocephalic nontraumatic, Eyes-eyeball shrunken +0.5 Eyes EOMI, PERRLA, conjunctiva -pale, sclera nonicteric ENT-bilateral nasal congestion, no hyperemia of TM, Tongue/mucous membranes dry <1 NECK: Supple, trachea R off midline , carotid upstroke +2, JVD 3 cm, No thyroid or lymph node enlargement, no use of accessory muscles K-avzem-zgiaxboaez muscle tenderness present, ROM at C-spine full CHEST: Emphysematous, costochondral tenderness-present, Hypoventilation at bilateral bases Breast exam Deferred RS: Clear breath sounds at anterior lung calhoun,Reduced breath sounds at bilateral bases Scattered late inspiratory wheezes and rales at bilateral posterior lung calhoun CVS: PMI-2 cm lateral to L MCL line in the sixth ICS, S1-S2/A1-A2 normal sinus, accentuated no gallop no murmur GI: Abdomen soft, obese +3, bowel sounds normoactive, no focal tenderness no mass or hernia, no hepatosplenomegaly Rectal: Deferred Genitourinary: Deferred Back: CVA tenderness minimal, bilateral lumbosacral spinal muscle tenderness present Bilateral suprascapular point tenderness present, Straight leg raising test negative EXTs: Wounds Bilateral upper/lower extremities-multiple pigmented scabs of varying size Pulses:Distal pulses +2, no rash, no edema, capillary refill instant, Feels peripherally warm Joints: Reduced ROM at bilateral hips and knee Neuro: Patient is awake alert oriented 3, affect depressed cognitive intact DTR +2, No focal motor deficit, changes of diabetic peripheral neuropathy, Gait NE laboratory and microbiology Laboratory Tests 02/18/25 05:33 02/17/25 07:05 Test 02/17/25 07:05 Range/Units Serum Glucose 144 H 74-106 mg/dL Problem List Primary Diagnosis 1. Acute exacerbation of COPD Triggered by acute asthmatic bronchitis Failed to Out patient oral antibiotics 2. Acute chest pain Rule out CT Known history of CAD, hypertension hypercholesterolemia NIDDM 3. Urinary tract infection 4. Acute flare-up of fibromyalgia 2' Diagnosis/Comorbidities Hypertensive CAD Hypercholesterolemia Morbid obesity in adult with current BMI 35-40 kg / m2 Assessment/Plan Comprehensive Clinical Assessment 1) Acute exacerbation of COPD Triggered by Acute asthmatic bronchitis .......................... Improving Failed outpatient measures Status: Acute Present at the time of admission: Yes Problem specific AP: - Based on history and physical exam-late inspiratory wheezes at bilateral bases Known history of COPD from passive exposure to smoking * Waiting sputum and blood cultures, * Continued patient to receive IV antibiotics and bronchodilator Med-Neb treatments, IV steroids as tolerated (2) Acute chest pain Elevated troponins Possible acute non STEMI vs myocardial strain Status: Acute Present at the time of admission: Yes Problem specific AP: * Patient is symptomatic for chest pains which are inducible on palpation * 12 lead EKG-unremarkable for acute ST-elevation * Known significant cardiac history and risk factors * History of CAD, status post PCI to RCA * Multiple angiogram including recent most 11/2022- No new occlusive lesions * Recommended to continue Plavix, Lovenox and telemetry observation (3) Hypovolemia ............................................................. Being corrected Status: Acute Assessment & Plan: The patient is noted to have hypovolemia on physical exam * Recommended IV hypotonic saline (4) Acute urinary tract infection Status: Acute Assessment & Plan: * known history of stricture of urethra and recurrent UTI * Urine cultures remarkably positive for Gram-negative bacteria Identification and sensitivity report pending * currently on IV antibiotics * Consider modifying IV antibiotics once culture results are out (5) Acute flare-up of fibromyalgia Triggered by lower respiratory infection Status: Acute on chronic Assessment & Plan: Known history of fibromyalgia * Acute flare up triggered by viral upper respiratory infection * Reports severe generalized aches and pains including chest upper and Lower back * Recommended IV steroids, non-steroidals, pain management (6) Hypercholesterolemia Status: Chronic Assessment & Plan: Known history of hypercholesterolemia Recommended patient to receive low-cholesterol diet and Lipitor Ecotrin. Side effects of medications are discussed with the patient (5) Well controlled hypertension Status: Chronic Assessment & Plan: Known history of hypertension for long time Complicated by severe concentric LVH on 2D echo Currently on beta-blockers and Diovan (7) Well controlled diabetes mellitus Status: Chronic Assessment & Plan: Her diabetes remains under fair control. Her hemoglobin A1c runs between 6.6% a. Obesity and insulin resistance b. Noncompliance with diet and medications c stress from acute CT, UTI Discussed with patient about all pertinent etiologic causes of uncontrolled NIDDM Full diabetic education is given to patient a, 1800-calorie ADA diet b. Combination of basal and short acting insulin therapy c. Intentional weight loss of 75 lbs is through diet and exercise d. Monitoring hemoglobin A1c,, CMP every 3 months lipid panel every 6 months 24-hour urine check for microalbuminuria on annual basis e. Recommended annual physical exam by dentist, high school band teacher and eye doctor f. Report to podiatry for any sign of inflammation or injury to foot (8) Morbid obesity in adult with current BMI >35-40 Kg/m Status: Chronic Assessment & Plan Her current BMI is high at 38 kg/m reflecting Her current body weight exceeds by 75 LBS to ideal body weight Informed patient about complications of obesity which includes but not limited to a. Hypoxia, cardiac arrhythmias, pulmonary embolism, embolic CVA, sudden cardiac The patient is recommended weight loss of 80 pounds through Low-carb low calorie 1800-calorie diet and aerobic exercises as tolerated Recommended patient to follow a. daily weight, b. ADA 1800-calorie diet-40% calories from breakfast 30% calories from lunch and dinner each, avoid carbonated soda c. Recommended aerobic exercises like walking 1-5 miles per day, riding on a stationary bike for 1-2 hours Treatment plans as of today Continue hospitalization at telemetry floor Obtain sputum and blood cultures PRN temp >101.5 Await for urine culture results Continue patient on IV Rocephin broad-spectrum IV antibiotics and bronchodilator Med-Neb treatment Obtain EKGs p.r.n. chest pain Place patient on NTG, morphine Place patient on Lipitor and Plavix Continue metoprolol 25 mg PO twice daily Recommend antiplatelet agent like Plavix and Lovenox Reconciled home medication Careful IV hydration Accu-Chek q.a.c. and HS Humalog sliding scale VTE the precautions The patient and/spouse is well informed by me about 1. Clinical impression, treatment plans, side effects of medications, course of the disease And fair to guarded prognosis 2. All patient's and concerns raised by patient or family are satisfactorily addressed by me Prognosis Guarded to fair Dietary Evaluation Review Recommendations by RD: Dietary education by RD, Decrease Calorie Intake Expected Outcomes/Goals: Recommended patient to intentionally lose 75 lbs from CBW through ADA 1800 calorie diet and exercise as tolerated Goal is to avert obesity related comorbidities such as obesity hypoventilation, tachycardia, embolic events, CVA, PE and sudden deaths Plan discussed with: Patient, Spouse Total Time (mins): 45 SULY CARDOZO MD Feb 18, 2025 22:16
[2025-02-19] VITALS (11 sets, daily range): BP systolic 133–159; BP diastolic 68–88; PULSE 51–73; RESP 17–19; TEMP 97.8–98.6; O2SAT 95–98
[2025-02-19] MEDS: ENOXAPARIN SOD 40 MG/0.4 ML SYRINGE SC SCH (10:29)
[2025-02-19] MEDS: HYDROmorphone HCL 2 MG/ML VL/or syr IV PRN (10:31)
--- NOTE | 2025-02-19 17:48 | DVHPN2 ---
Progress Note - Dictate Date Seen: Feb 19, 2025 Has the PT tested + for MRSA If YES, has PT been informed?: No Medical Necessity Reason Pt with a Central, PICC or Fol: No Medical Necessity Reason Management of COPD, UTI IV antibiotics,Bronchodilators med neb treatments SubQ Lovenox Subjective Patient is currently being treated for symptoms of chest congestion cough Chest tightness and wheezing * She is responding to current measures like IV antibiotics, steroids and Bronchodilators med neb treatments * 12 lead EKG- raised concern about possible anteroseptal RI * Urine Culture pos for [place] Overnight events are reviewed through medical chart and case discussion with patient's assigned RN while making rounds on patient on the day of service vital signs Vital Sign Date Time Temp Pulse Resp B/P (MAP) Pulse Ox O2 Delivery O2 Flow Rate FiO2 02/19/25 17:00 98.6 66 18 149/88 (108) 95 98.6 02/19/25 08:00 Nasal Cannula* 2 28 Total Intake and Output 02/18/25 02/18/25 02/19/25 15:00 23:00 07:00 Intake Total 720 ml 550 ml Balance 720 ml 550 ml medications Current Medications Medications Dose Ordered Sig/Kitty Route Start Time Stop Time Status Last Admin Dose Admin Nitroglycerin 0.4 mg Q5MINP PRN SL 02/16/25 21:30 Hold Morphine Sulfate 2 mg Q30M PRN IV 02/16/25 21:30 Albuterol 90 mcg Q6HPRN PRN IN 02/16/25 21:30 Albuterol 2.5 mg Q4HPRN PRN NEB 02/16/25 21:30 02/18/25 18:41 2.5 MG Clopidogrel Bisulfate 75 mg DAILY PO 02/17/25 10:00 02/19/25 10:29 75 MG Docusate Sodium 100 mg DAILYP PRN PO 02/16/25 21:30 Duloxetine HCl 30 mg DAILY PO 02/17/25 10:00 02/19/25 10:27 30 MG Empaglifozin 10 mg DAILY PO 02/17/25 10:00 02/19/25 10:29 10 MG Multivitamins 1 tab DAILY PO 02/17/25 10:00 02/19/25 10:29 1 TAB Oxybutynin Chloride 10 mg DAILY PO 02/17/25 10:00 02/19/25 10:29 10 MG Pantoprazole Sodium 40 mg QAM PO 02/17/25 07:00 02/19/25 06:45 40 MG Sildenafil Citrate 20 mg TID@08,14,20 PO 02/17/25 08:00 02/19/25 08:00 20 MG Valsartan 160 mg DAILY PO 02/17/25 10:00 02/19/25 10:28 160 MG Patient Own Medication 1 tab DAILY PO 02/17/25 10:00 Betamethasone Dipropion Augmented 1 applic BID TOP 02/17/25 10:00 02/17/25 10:00 1 APPLIC Celecoxib 200 mg HS PO 02/17/25 22:00 02/18/25 21:45 200 MG Citalopram Hydrobromide 40 mg DAILY PO 02/17/25 10:00 02/19/25 10:27 40 MG Hydrochlorothiazide 12.5 mg DAILY PO 02/17/25 10:00 02/19/25 10:29 12.5 MG Insulin Human Lispro AC SC 02/17/25 07:00 02/19/25 06:44 3 UNITS Insulin Human Lispro HS SC 02/16/25 22:00 02/17/25 22:55 4 UNITS Hydrocortisone Sodium Succinate 50 mg Q12HR IV 02/16/25 22:30 02/19/25 10:27 50 MG Sodium Chloride 1,000 ml @ 50 mls/hr Q20H IV 02/16/25 21:45 02/19/25 09:45 50 MLS/HR Insulin Glargine 10 units QAM SC 02/17/25 07:00 02/19/25 06:47 10 UNITS Ceftriaxone Sodium 100 ml @ 100 mls/hr DAILY@2100 IV 02/16/25 23:00 02/18/25 21:21 100 MLS/HR Hydromorphone HCl 0.6 mg Q4HP PRN IV 02/16/25 22:15 02/19/25 10:31 0.6 MG Hydromorphone HCl 1 mg Q4HP PRN IV 02/16/25 22:15 02/18/25 06:26 1 MG Ketorolac Tromethamine 15 mg Q6HPRN PRN IV 02/16/25 22:15 02/21/25 22:14 02/19/25 03:55 15 MG Atorvastatin Calcium 40 mg HS PO 02/18/25 22:00 02/18/25 21:45 40 MG Enoxaparin Sodium 40 mg BID SC 02/19/25 10:00 02/19/25 10:29 40 MG Metoprolol Succinate 25 mg DAILY PO 02/18/25 16:15 02/19/25 10:29 25 MG Clonidine HCl 0.1 mg Q6HPRN PRN PO 02/19/25 08:30 Clonidine HCl 0.3 mg Q6HPRN PRN PO 02/19/25 09:00 Clonidine HCl 0.2 mg Q6HPRN PRN PO 02/19/25 09:00 objective Gen. appearance: Well-developed, morbidly obese middle-aged -[place] female appears generally weak, hypovolemic, tachypnea, short of breath, RR 18 per min HEENT Head normocephalic nontraumatic, Eyes-eyeball shrunken 0 Eyes EOMI, PERRLA, conjunctiva -pale, sclera nonicteric ENT-bilateral nasal congestion, no hyperemia of TM, Tongue/mucous membranes wet NECK: Supple, trachea R off midline , carotid upstroke +2, JVD 3 cm, No thyroid or lymph node enlargement, no use of accessory muscles H-jyrid-vvplnmwlzi muscle tenderness present, ROM at C-spine full CHEST: Emphysematous, costochondral tenderness, Hypoventilation at bilateral bases Breast Deferred RS: Clear breath sounds at anterior lung [place],Reduced breath sounds at bilateral bases A few late inspiratory wheezes and rales at bilateral posterior lung [place] and bases CVS: PMI-2 cm lateral to L MCL line in the sixth ICS, S1-S2/A1-A2 normal sinus, accentuated no gallop no murmur GI: Abdomen soft, obese +4, bowel sounds normoactive, no focal tenderness no mass or hernia, no hepatosplenomegaly Rectal: Deferred Genitourinary: Deferred Back: CVA tenderness minimal, bilateral lumbosacral spinal muscle tenderness present Bilateral suprascapular point tenderness present, Straight leg raising test negative EXTs: Wounds Bilateral upper/lower extremities-multiple pigmented scabs of varying size Pulses:Distal pulses +2, no rash, no edema, capillary refill instant, Feels peripherally warm Joints: Reduced ROM at bilateral hips and knee Neuro: Patient is awake alert oriented 3, affect depressed cognitive intact DTR +2, No focal motor deficit, changes of diabetic peripheral neuropathy, gait NE laboratory and microbiology Laboratory Tests 02/18/25 05:33 02/17/25 07:05 Test 02/17/25 07:05 Range/Units Serum Glucose 144 H 74-106 mg/dL - --------- PATIENT: CANDELARIA HOOVER ACCT: [id number] LOC: [facility] U: [id number] AGE/SX: 64/F ROOM: [facility] RE02/16/[address]: SULY CARDOZO MD : 1960 BED: B DIS: STATUS: ADM IN TLOC: - SPEC #: [id number] ROMA: 02/16/25 STATUS: COMP REQ #: [id number] RECD: 02/17/25 [facility] DR: SULY CARDOZO MD SOURCE: URINE CATH ENTR: 02/16/25 [facility] DR: SPDESC: ORDERED: [facility] - Procedure Result - Urine Bacterial Culture Final Report <10,000 CFU/mL Gram Positive Chloe Organism 1 Escherichia coli QUANTITATION >100,000 CFU/ML E COLI M.I.C. RX --------- --- Ampicillin <=8 S Ampicillin/Sulbactam <=8/4 S Aztreonam <=4 S Cefepime <=2 S Ceftazidime <=1 S Ceftriaxone <=1 S Ciprofloxacin <=0.25 S Ertapenem <=0.5 S Gentamicin <=2 S Levofloxacin <=0.5 S Meropenem <=1 S Nitrofurantoin <=32 S Trimethoprim/Sulfamethoxazole <=2/38 S Piperacillin/Tazobactam <=8 S *PAUL value in ug/ml Problem List Primary Diagnosis 1. Acute exacerbation of COPD................................................ Improving Triggered by acute asthmatic bronchitis Failed to Out patient oral antibiotics 2. Acute chest pain............................................................... Stable Elevated troponins Acute non STEMI VS myocardial strain Known history of CAD, hypertension hypercholesterolemia NIDDM 3. Urinary tract infection 4. Acute flare-up of fibromyalgia 2' Diagnosis/Comorbidities Hypertensive CAD Hypercholesterolemia Morbid obesity in adult with current BMI 35-40 kg / m2 Assessment/Plan Comprehensive Clinical Assessment 1) Acute exacerbation of COPD................................................ Improving Triggered by Acute asthmatic bronchitis Failed outpatient measures Status: Acute Present at the time of admission: Yes Problem specific AP: - Patient seems to be recovering from acute exacerbation of COPD - We will continue patient on IV antibiotics and bronchodilator Med-Neb treatments, IV steroids as tolerated (2) Acute chest pain............................................................ Clinically stable Elevated troponins Acute non STEMI VS myocardial strain Status: Acute Present at the time of admission: Yes Problem specific AP: * Patient is symptomatic for pleuritic chest pain on the left parasternal border Her chest pains are inducible through palpation 12 lead EKG unremarkable for acute ST-elevation * Known significant cardiac history and risk factors * History of CAD, status post PCI to RCA * Multiple angiogram including recent most 11/2022- No new occlusive lesions * Recommended to continue Plavix, Lovenox and telemetry observation * Recommended 2D echo exam (3) Hypovolemia ......................................................................... Corrected Status: Acute Assessment & Plan: The patient is noted to have hypovolemia on physical exam * Recommended IV hypotonic saline (4) Acute urinary tract infection secondary to E coli Status: Acute Assessment & Plan: * known history of stricture of urethra and recurrent UTI * Urine cultures remarkable for E coli-sensitive to ceftriaxone * We will continue patient on IV ceftriaxone (5) Acute flare-up of fibromyalgia Triggered by lower respiratory infection Status: Acute on chronic Assessment & Plan: Known history of fibromyalgia * Acute flare up triggered by viral upper respiratory infection * Reports severe generalized aches and pains including chest upper and Lower back * Recommended IV steroids, non-steroidals, pain management (6) Hypercholesterolemia Status: Chronic Assessment & Plan: Known history of hypercholesterolemia Recommended patient to receive low-cholesterol diet and Lipitor Ecotrin. Side effects of medications are discussed with the patient (5) fairly well controlled hypertension Status: Chronic Assessment & Plan: Known history of hypertension for long time Complicated by severe concentric LVH on 2D echo Currently on beta-blockers and Diovan (7) Well controlled diabetes mellitus Status: Chronic Assessment & Plan: Her diabetes remains under fair control. Her hemoglobin A1c runs between 6.6% a. Obesity and insulin resistance b. Noncompliance with diet and medications c stress from acute RI, UTI Discussed with patient about all pertinent etiologic causes of uncontrolled NIDDM Full diabetic education is given to patient a, 1800-calorie ADA diet b. Combination of basal and short acting insulin therapy c. Intentional weight loss of 75 lbs is through diet and exercise d. Monitoring hemoglobin A1c,, CMP every 3 months lipid panel every 6 months 24-hour urine check for microalbuminuria on annual basis e. Recommended annual physical exam by dentist, drum puller and eye doctor f. Report to podiatry for any sign of inflammation or injury to foot (8) Morbid obesity in adult with current BMI >35-40 Kg/m Status: Chronic Assessment & Plan Her current BMI is high at 38 kg/m reflecting Her current body weight exceeds by 75 LBS to ideal body weight Informed patient about complications of obesity which includes but not limited to a. Hypoxia, cardiac arrhythmias, pulmonary embolism, embolic CVA, sudden cardiac The patient is recommended weight loss of 80 pounds through Low-carb low calorie 1800-calorie diet and aerobic exercises as tolerated Recommended patient to follow a. daily weight, b. ADA 1800-calorie diet-40% calories from breakfast 30% calories from lunch and dinner each, avoid carbonated soda c. Recommended aerobic exercises like walking 1-5 miles per day, riding on a stationary bike for 1-2 hours Treatment plans as of today Continue hospitalization at telemetry floor Reviewed results of urine culture We will continue patient on IV ceftriaxone Continue patient on bronchodilator Med-Neb treatment Continue patient on NTG, morphine Recommended 2D echo exam Place patient on Lipitor and Plavix Continue metoprolol 25 mg PO twice daily Recommend antiplatelet agent like Plavix and Lovenox Reconciled home medication Careful IV hydration Accu-Chek q.a.c. and HS Humalog sliding scale VTE the precautions The patient and/spouse is well informed by me about 1. Clinical impression, treatment plans, side effects of medications, course of the disease And fair to guarded prognosis 2. All patient's and concerns raised by patient or family are satisfactorily addressed by me Prognosis Fair to guarded Dietary Evaluation Review Recommendations by RD: Dietary education by RD, Decrease Calorie Intake Expected Outcomes/Goals: Recommended patient to intentionally lose 75 lbs from CBW through ADA 1800 calorie diet and exercise as tolerated Goal is to avert obesity related comorbidities such as obesity hypoventilation, tachycardia, embolic events, CVA, PE and sudden deaths Plan discussed with: Patient, Spouse Total Time (mins): 45 SULY CARDOZO MD Feb 19, 2025 17:48
[2025-02-20] VITALS (8 sets, daily range): BP systolic 139–169; BP diastolic 62–101; PULSE 51–67; RESP 16–20; TEMP 97.6–98.3; O2SAT 97–98
[2025-02-20 06:13] LABS: Hemoglobin 10.9 g/dL (12.2-16.2); Nucleated Red Blood Cells % 0.0 %
[2025-02-20 06:17] LABS: Hematocrit 33.8 % (36.0-46.0); Mean Corpuscular Hemoglobin 25.6 pg (28.0-32.0); Mean Corpuscular Volume 79.1 fL (80.0-100.0)
[2025-02-20 06:44] LABS: Alanine Aminotransferase 12 U/L (7-40); Albumin 3.6 g/dL (3.2-4.8); Anion Gap 8 (5-15); BUN/Creatinine Ratio 25.7 (10.0-20.0); Blood Urea Nitrogen 19 mg/dL (9-23); Calcium 8.8 mg/dL (8.7-10.4); Carbon Dioxide 25 mmol/L (20-31); Magnesium 1.9 mg/dL (1.6-2.6); Potassium 3.7 mmol/L (3.5-5.1); Sodium 141 mmol/L (136-145); Total Protein 6.4 g/dL (5.7-8.2)
[2025-02-20 06:47] LABS: Bilirubin, Total 0.3 mg/dL (0.2-1.0); Chloride 108 mmol/L (98-107); Glucose 123 mg/dL (74-106)
[2025-02-20 07:34] LABS: Alkaline Phosphatase 103 U/L (46-116)
--- NOTE | 2025-02-20 08:51 | DVHPN2 ---
Progress Note - Dictate Date Seen: Feb 20, 2025 Has the PT tested + for MRSA If YES, has PT been informed?: No Medical Necessity Reason Pt with a Central, PICC or Fol: No Medical Necessity Reason IV antibiotics for UTI and COPD Bronchodilators med neb treatments Parenteral analgesics for fibromyalgia Subjective Patient is currently being treated for symptoms of chest congestion cough Chest tightness and wheezing * She is responding to current measures like IV antibiotics, steroids and Bronchodilators med neb treatments * 12 lead EKG- raised concern about possible anteroseptal PR * Urine Culture pos for [place] Overnight events are reviewed through medical chart and case discussion with patient's assigned RN while making rounds on patient on the day of service vital signs Vital Sign Date Time Temp Pulse Resp B/P (MAP) Pulse Ox O2 Delivery O2 Flow Rate FiO2 02/20/25 05:00 98.0 60 17 142/82 (102) 98 98.0 02/19/25 22:26 21 02/19/25 20:00 Nasal Cannula* 2 Total Intake and Output 02/19/25 02/19/25 02/20/25 15:00 23:00 07:00 Intake Total 600 ml 250 ml Output Total 400 ml Balance 600 ml -150 ml medications Current Medications Medications Dose Ordered Sig/Kitty Route Start Time Stop Time Status Last Admin Dose Admin Nitroglycerin 0.4 mg Q5MINP PRN SL 02/16/25 21:30 Hold Morphine Sulfate 2 mg Q30M PRN IV 02/16/25 21:30 Albuterol 90 mcg Q6HPRN PRN IN 02/16/25 21:30 Cancel Clopidogrel Bisulfate 75 mg DAILY PO 02/17/25 10:00 02/19/25 10:29 75 MG Docusate Sodium 100 mg DAILYP PRN PO 02/16/25 21:30 Duloxetine HCl 30 mg DAILY PO 02/17/25 10:00 02/19/25 10:27 30 MG Empaglifozin 10 mg DAILY PO 02/17/25 10:00 02/19/25 10:29 10 MG Multivitamins 1 tab DAILY PO 02/17/25 10:00 02/19/25 10:29 1 TAB Oxybutynin Chloride 10 mg DAILY PO 02/17/25 10:00 02/19/25 10:29 10 MG Pantoprazole Sodium 40 mg QAM PO 02/17/25 07:00 02/20/25 06:19 40 MG Sildenafil Citrate 20 mg TID@08,14,20 PO 02/17/25 08:00 02/19/25 20:00 20 MG Valsartan 160 mg DAILY PO 02/17/25 10:00 02/19/25 10:28 160 MG Patient Own Medication 1 tab DAILY PO 02/17/25 10:00 Betamethasone Dipropion Augmented 1 applic BID TOP 02/17/25 10:00 02/17/25 10:00 1 APPLIC Celecoxib 200 mg HS PO 02/17/25 22:00 02/19/25 21:39 200 MG Citalopram Hydrobromide 40 mg DAILY PO 02/17/25 10:00 02/19/25 10:27 40 MG Hydrochlorothiazide 12.5 mg DAILY PO 02/17/25 10:00 02/19/25 10:29 12.5 MG Insulin Human Lispro AC SC 02/17/25 07:00 02/19/25 06:44 3 UNITS Insulin Human Lispro HS SC 02/16/25 22:00 02/17/25 22:55 4 UNITS Hydrocortisone Sodium Succinate 50 mg Q12HR IV 02/16/25 22:30 02/19/25 21:42 50 MG Sodium Chloride 1,000 ml @ 50 mls/hr Q20H IV 02/16/25 21:45 02/20/25 04:57 50 MLS/HR Insulin Glargine 10 units QAM SC 02/17/25 07:00 02/20/25 06:21 10 UNITS Ceftriaxone Sodium 100 ml @ 100 mls/hr DAILY@2100 IV 02/16/25 23:00 02/19/25 20:00 100 MLS/HR Hydromorphone HCl 0.6 mg Q4HP PRN IV 02/16/25 22:15 02/20/25 01:08 0.6 MG Hydromorphone HCl 1 mg Q4HP PRN IV 02/16/25 22:15 02/18/25 06:26 1 MG Ketorolac Tromethamine 15 mg Q6HPRN PRN IV 02/16/25 22:15 02/21/25 22:14 02/20/25 04:57 15 MG Atorvastatin Calcium 40 mg HS PO 02/18/25 22:00 02/19/25 21:39 40 MG Enoxaparin Sodium 40 mg BID SC 02/19/25 10:00 02/19/25 10:29 40 MG Metoprolol Succinate 25 mg DAILY PO 02/18/25 16:15 02/19/25 10:29 25 MG Clonidine HCl 0.1 mg Q6HPRN PRN PO 02/19/25 08:30 Clonidine HCl 0.3 mg Q6HPRN PRN PO 02/19/25 09:00 Clonidine HCl 0.2 mg Q6HPRN PRN PO 02/19/25 09:00 objective Gen. appearance: Well-developed, morbidly obese middle-aged -[place] female appears Clinically improving but symptomatic for mild congestion, generalized pains HEENT Head normocephalic nontraumatic, Eyes EOMI, PERRLA, conjunctiva -pale, sclera nonicteric ENT-bilateral nasal congestion, no hyperemia of TM, Tongue/mucous membranes wet NECK: Supple, trachea R off midline , carotid upstroke +2, JVD 3 cm, No thyroid or lymph node enlargement, no use of accessory muscles [id number] muscle tenderness present, ROM at C-spine full CHEST: Emphysematous, costochondral tenderness-improving, Hypoventilation at bilateral bases Breast Deferred RS: Clear breath sounds at anterior lung calhoun,Reduced breath sounds at bilateral bases A few late inspiratory wheezes and rales at bilateral posterior lung [place] and bases CVS: PMI-2 cm lateral to L MCL line in the sixth ICS, S1-S2/A1-A2 normal sinus, accentuated no gallop no murmur GI: Abdomen soft, obese +4, bowel sounds normoactive, no focal tenderness no mass or hernia, no hepatosplenomegaly Rectal: Deferred Genitourinary: Deferred Back: CVA tenderness minimal, bilateral lumbosacral spinal muscle tenderness present Bilateral suprascapular point tenderness present, Straight leg raising test negative EXTs: Wounds Bilateral upper/lower extremities-multiple pigmented scabs of varying size Pulses:Distal pulses +2, no rash, no edema, capillary refill instant, Feels peripherally warm Joints: Reduced ROM at bilateral hips and knee Neuro: Patient is awake alert oriented 3, affect depressed cognitive intact DTR +2, No focal motor deficit, changes of diabetic peripheral neuropathy, gait NE laboratory and microbiology Laboratory Tests 02/20/25 05:39 Test 02/20/25 05:39 Range/Units Serum Glucose 123 H 74-106 mg/dL Problem List 1. Acute exacerbation of COPD Triggered by acute asthmatic bronchitis Failed to Out patient oral antibiotics 2. Acute chest pain Rule out PR Known history of CAD, hypertension hypercholesterolemia NIDDM 3. Urinary tract infection 4. Acute flare-up of fibromyalgia 2' Diagnosis/Comorbidities Hypertensive CAD Hypercholesterolemia Morbid obesity in adult with current BMI 35-40 kg / m2 Assessment/Plan Comprehensive Clinical Assessment 1) Acute exacerbation of COPD Triggered by Acute asthmatic bronchitis .......................... Improving Failed outpatient measures Status: Acute Present at the time of admission: Yes Problem specific AP: - Based on history and physical exam-late inspiratory wheezes at bilateral bases Known history of COPD from passive exposure to smoking * Noted significant improvement in her current symptoms as she responded to IV antibiotics and bronchodilator Med-Neb treatments, IV steroids as tolerated (2) Acute chest pain............................................... Clinically stable Elevated troponins Possible acute non STEMI vs myocardial strain Status: Acute Present at the time of admission: Yes Problem specific AP: * Patient is symptomatic for chest pains which are inducible on palpation * 12 lead EKG-unremarkable for acute ST-elevation * Known significant cardiac history and risk factors * History of CAD, status post PCI to RCA * Multiple angiogram including recent most 11/2022- No new occlusive lesions * Awaiting 2D echo exam * Recommended to continue Plavix, Lovenox and telemetry observation (4) Acute urinary tract infection secondary to E coli.......... Improving Status: Acute Assessment & Plan: * known history of stricture of urethra and recurrent UTI * Urine cultures remarkably positive for E coli sensitive to cephalosporins * Continue IV ceftriaxone for 7 days for recurrent infections (5) Acute flare-up of fibromyalgia Triggered by lower respiratory infection Status: Acute on chronic Assessment & Plan: Known history of fibromyalgia * Acute flare up triggered by viral upper respiratory infection * Reports severe generalized aches and pains including chest upper and Lower back * Recommended IV steroids, non-steroidals, pain management (6) Hypercholesterolemia Status: Chronic Assessment & Plan: Known history of hypercholesterolemia Recommended patient to receive low-cholesterol diet and Lipitor Ecotrin. Side effects of medications are discussed with the patient (5) Well controlled hypertension Status: Chronic Assessment & Plan: Known history of hypertension for long time Complicated by severe concentric LVH on 2D echo Currently on beta-blockers and Diovan (7) Well controlled diabetes mellitus Status: Chronic Assessment & Plan: Her diabetes remains under fair control. Her hemoglobin A1c runs between 6.6% a. Obesity and insulin resistance b. Noncompliance with diet and medications c stress from acute PR, UTI Discussed with patient about all pertinent etiologic causes of uncontrolled NIDDM Full diabetic education is given to patient a, 1800-calorie ADA diet b. Combination of basal and short acting insulin therapy c. Intentional weight loss of 75 lbs is through diet and exercise d. Monitoring hemoglobin A1c,, CMP every 3 months lipid panel every 6 months 24-hour urine check for microalbuminuria on annual basis e. Recommended annual physical exam by dentist, television service engineer and eye doctor f. Report to podiatry for any sign of inflammation or injury to foot (8) Morbid obesity in adult with current BMI >35-40 Kg/m Status: Chronic Assessment & Plan Her current BMI is high at 38 kg/m reflecting Her current body weight exceeds by 75 LBS to ideal body weight Informed patient about complications of obesity which includes but not limited to a. Hypoxia, cardiac arrhythmias, pulmonary embolism, embolic CVA, sudden cardiac The patient is recommended weight loss of 80 pounds through Low-carb low calorie 1800-calorie diet and aerobic exercises as tolerated Recommended patient to follow a. daily weight, b. ADA 1800-calorie diet-40% calories from breakfast 30% calories from lunch and dinner each, avoid carbonated soda c. Recommended aerobic exercises like walking 1-5 miles per day, riding on a stationary bike for 1-2 hours Treatment plans as of today Continue hospitalization at telemetry floor Awaiting 2D echo exam Continue patient on IV Rocephin broad-spectrum IV antibiotics and bronchodilator Med-Neb treatment Obtain EKGs p.r.n. chest pain Place patient on NTG, morphine Place patient on Lipitor and Plavix Continue metoprolol 25 mg PO twice daily Recommend antiplatelet agent like Plavix and Lovenox Reconciled home medication Careful IV hydration Accu-Chek q.a.c. and HS Humalog sliding scale VTE the precautions The patient and/spouse is well informed by me about 1. Clinical impression, treatment plans, side effects of medications, course of the disease And fair to guarded prognosis 2. All patient's and concerns raised by patient or family are satisfactorily addressed by me Prognosis Fair Dietary Evaluation Review Recommendations by RD: Dietary education by RD, Decrease Calorie Intake Expected Outcomes/Goals: Recommended patient to intentionally lose 75 lbs from CBW through ADA 1800 calorie diet and exercise as tolerated Goal is to avert obesity related comorbidities such as obesity hypoventilation, tachycardia, embolic events, CVA, PE and sudden deaths Plan discussed with: Patient, Spouse Total Time (mins): 45 SULY CARDOZO MD Feb 20, 2025 08:51
[2025-02-20] MEDS: DOCUSATE SOD 100 MG CAP PO PRN (09:33)
[2025-02-21] VITALS (8 sets, daily range): BP systolic 149–171; BP diastolic 72–83; PULSE 49–70; RESP 7–18; TEMP 97.8–98.6; O2SAT 94–99
[2025-02-21] MEDS: SOD CHL 0.45% 1,000 ML IV SCH ×2 (02:01→21:53)
[2025-02-21] MEDS: KETOROLAC TROMETH 30 MG/ML 1ML VIAL IV PRN (09:26)
--- NOTE | 2025-02-21 19:28 | DVHPN2 ---
Progress Note - Dictate Date Seen: Feb 21, 2025 Has the PT tested + for MRSA If YES, has PT been informed?: No Medical Necessity Reason Pt with a Central, PICC or Fol: No Medical Necessity Reason IV antibiotics IV fluids Parenteral analgesics Subjective The Patient seems to be recovering from symptoms of chest congestion cough Chest tightness and wheezing from acute exacerbation of COPD as she responded to IV antibiotics, and bronchodilators med neb treatments * She receives parenteral analgesics for pain management Her lower back pains from DJD of LS spine as well as flare-up of fibromyalgia Related generalized body aches and pains improving * Her 12 lead EKG- raised concern about possible anteroseptal ME but indeterminate * Patient had coronary angiogram unremarkable for occlusive CAD except PCI to RCA since 2007-patent stent Overnight events are reviewed through medical chart and case discussion with patient's assigned RN while making rounds on patient on the day of service vital signs Vital Sign Date Time Temp Pulse Resp B/P (MAP) Pulse Ox O2 Delivery O2 Flow Rate FiO2 02/21/25 17:05 60 16 170/87 02/21/25 16:49 98.2 97 98.2 02/21/25 08:00 Room Air* 0 21 Total Intake and Output 02/20/25 02/20/25 02/21/25 15:00 23:00 07:00 Intake Total 820 ml 850 ml Output Total 800 ml 520 ml Balance 20 ml 330 ml medications Current Medications Medications Dose Ordered Sig/Kitty Route Start Time Stop Time Status Last Admin Dose Admin Nitroglycerin 0.4 mg Q5MINP PRN SL 02/16/25 21:30 Hold Morphine Sulfate 2 mg Q30M PRN IV 02/16/25 21:30 Albuterol 90 mcg Q6HPRN PRN IN 02/16/25 21:30 Cancel Clopidogrel Bisulfate 75 mg DAILY PO 02/17/25 10:00 02/21/25 09:23 75 MG Docusate Sodium 100 mg DAILYP PRN PO 02/16/25 21:30 02/20/25 09:33 100 MG Duloxetine HCl 30 mg DAILY PO 02/17/25 10:00 02/21/25 09:20 30 MG Empaglifozin 10 mg DAILY PO 02/17/25 10:00 02/21/25 09:21 10 MG Multivitamins 1 tab DAILY PO 02/17/25 10:00 02/21/25 09:23 1 TAB Oxybutynin Chloride 10 mg DAILY PO 02/17/25 10:00 02/21/25 09:21 10 MG Pantoprazole Sodium 40 mg QAM PO 02/17/25 07:00 02/21/25 06:40 40 MG Sildenafil Citrate 20 mg TID@08,14,20 PO 02/17/25 08:00 02/21/25 13:56 20 MG Valsartan 160 mg DAILY PO 02/17/25 10:00 02/21/25 09:25 160 MG Patient Own Medication 1 tab DAILY PO 02/17/25 10:00 Betamethasone Dipropion Augmented 1 applic BID TOP 02/17/25 10:00 02/17/25 10:00 1 APPLIC Celecoxib 200 mg HS PO 02/17/25 22:00 02/20/25 21:24 200 MG Citalopram Hydrobromide 40 mg DAILY PO 02/17/25 10:00 02/21/25 09:23 40 MG Hydrochlorothiazide 12.5 mg DAILY PO 02/17/25 10:00 02/19/25 10:29 12.5 MG Insulin Human Lispro AC SC 02/17/25 07:00 02/19/25 06:44 3 UNITS Insulin Human Lispro HS SC 02/16/25 22:00 02/17/25 22:55 4 UNITS Hydrocortisone Sodium Succinate 50 mg Q12HR IV 02/16/25 22:30 02/21/25 09:24 50 MG Insulin Glargine 10 units QAM SC 02/17/25 07:00 02/21/25 06:47 10 UNITS Ceftriaxone Sodium 100 ml @ 100 mls/hr DAILY@2100 IV 02/16/25 23:00 02/20/25 20:30 100 MLS/HR Hydromorphone HCl 0.6 mg Q4HP PRN IV 02/16/25 22:15 02/20/25 20:48 0.6 MG Hydromorphone HCl 1 mg Q4HP PRN IV 02/16/25 22:15 02/21/25 16:35 1 MG Atorvastatin Calcium 40 mg HS PO 02/18/25 22:00 02/20/25 21:25 40 MG Enoxaparin Sodium 40 mg BID SC 02/19/25 10:00 02/20/25 09:27 40 MG Metoprolol Succinate 25 mg DAILY PO 02/18/25 16:15 02/21/25 09:23 25 MG Clonidine HCl 0.1 mg Q6HPRN PRN PO 02/19/25 08:30 Clonidine HCl 0.3 mg Q6HPRN PRN PO 02/19/25 09:00 Clonidine HCl 0.2 mg Q6HPRN PRN PO 02/19/25 09:00 Sodium Chloride 1,000 ml @ 30 mls/hr Q24H IV 02/20/25 23:45 02/21/25 02:01 30 MLS/HR Ketorolac Tromethamine 30 mg Q8HPRN PRN IV 02/20/25 23:45 02/25/25 23:44 02/21/25 09:26 30 MG objective Gen. appearance: Well-developed, morbidly obese middle-aged -[place] female appears Clinically improving from chest congestion, pains and generalized pains HEENT Head normocephalic nontraumatic, Eyes EOMI, PERRLA, conjunctiva -pale, sclera nonicteric ENT-bilateral nasal congestion, no hyperemia of TM, Tongue/mucous membranes wet NECK: Supple, trachea R off midline , carotid upstroke +2, JVD 3 cm, No thyroid or lymph node enlargement, no use of accessory muscles [id number] muscle tenderness present, ROM at C-spine full CHEST: Emphysematous, costochondral tenderness-improving, Hypoventilation at bilateral bases Breast Deferred RS: Clear breath sounds at anterior lung [place],Reduced breath sounds at bilateral bases Few late inspiratory wheezes and rales at bilateral posterior lung [place] and bases CVS: PMI-2 cm lateral to L MCL line in the sixth ICS, S1-S2/A1-A2 normal sinus, accentuated no gallop no murmur GI: Abdomen soft, obese +4, bowel sounds normoactive, no focal tenderness no mass or hernia, no hepatosplenomegaly Rectal: Deferred Genitourinary: Deferred Back: CVA tenderness minimal, bilateral lumbosacral spinal muscle tenderness present Bilateral suprascapular point tenderness present, Straight leg raising test negative EXTs: Wounds Bilateral upper/lower extremities-multiple pigmented scabs of varying size Pulses:Distal pulses +2, no rash, no edema, capillary refill instant, Feels peripherally warm Joints: Reduced ROM at bilateral hips and knee Neuro: Patient is awake alert oriented 3, affect depressed cognitive intact DTR +2, No focal motor deficit, changes of diabetic peripheral neuropathy, gait NE laboratory and microbiology Laboratory Tests 02/20/25 05:39 Test 02/20/25 05:39 Range/Units Serum Glucose 123 H 74-106 mg/dL Problem List 1. Acute exacerbation of COPD Triggered by acute asthmatic bronchitis.......................... Significantly improving 2. Acute chest pain....................................................... Significantly improving Rule out ME Known history of CAD, hypertension hypercholesterolemia NIDDM 3. Urinary tract infection................................................. Significantly improving 4. Acute flare-up of fibromyalgia....................................... Significantly improving 2' Diagnosis/Comorbidities Hypertensive CAD Hypercholesterolemia Morbid obesity in adult with current BMI 35-40 kg / m2 Assessment/Plan Comprehensive Clinical Assessment 1) Acute exacerbation of COPD Triggered by Acute asthmatic bronchitis ......................... Significantly improving Failed outpatient measures Status: Acute Present at the time of admission: Yes Problem specific AP: * Noted significant improvement in her current symptoms as she responded to IV antibiotics and bronchodilator Med-Neb treatments, as tolerated (2) Acute chest pain............................................... Clinically stable and improved Elevated troponins Possible acute non STEMI vs myocardial strain Status: Acute Present at the time of admission: Yes Problem specific AP: * Patient was symptomatic for chest pains which are inducible on palpation * 12 lead EKG-unremarkable for acute ST-elevation * Elevated troponin seemed to be from myocardial strain pattern * Known significant cardiac history and risk factors * History of CAD, status post PCI to RCA * Multiple angiogram including recent most 11/2022- No new occlusive lesions * Awaiting 2D echo exam. Repeat request has been made * Recommended to continue Plavix, Lovenox and telemetry observation (4) Acute urinary tract infection secondary to E coli.......... Significantly Improving Status: Acute Assessment & Plan: * known history of stricture of urethra and recurrent UTI * Urine cultures remarkably positive for E coli sensitive to cephalosporins * Continue IV ceftriaxone for 7 days for recurrent infections (5) Acute flare-up of fibromyalgia Triggered by lower respiratory infection...................... Significantly improving Status: Acute on chronic Assessment & Plan: Known history of fibromyalgia * Acute flare up triggered by viral upper respiratory infection * Reports severe generalized aches and pains including chest upper and Lower back * Recommended IV steroids, non-steroidals, pain management (6) Acute on chronic iron-deficiency anemia Status: Acute on chronic Assessment & Plan: No sign of obvious bleeding We will refer to Dr. Nely Fink for outpatient GI evaluation (7) Hypercholesterolemia Status: Chronic Assessment & Plan: Known history of hypercholesterolemia Recommended patient to receive low-cholesterol diet and Lipitor Ecotrin. Side effects of medications are discussed with the patient (8) Uncontrolled hypertension Status: Chronic Assessment & Plan: Known history of hypertension for long time Complicated by severe concentric LVH on 2D echo Currently on beta-blockers and Diovan with addition of thiazide (9) Well controlled diabetes mellitus Status: Chronic Assessment & Plan: Her diabetes remains under fair control. Her hemoglobin A1c runs between 6.6% a. Obesity and insulin resistance b. Noncompliance with diet and medications c stress from acute ME, UTI Discussed with patient about all pertinent etiologic causes of uncontrolled NIDDM Full diabetic education is given to patient a, 1800-calorie ADA diet b. Combination of basal and short acting insulin therapy c. Intentional weight loss of 75 lbs is through diet and exercise d. Monitoring hemoglobin A1c,, CMP every 3 months lipid panel every 6 months 24-hour urine check for microalbuminuria on annual basis e. Recommended annual physical exam by dentist, team coordinator and eye doctor f. Report to podiatry for any sign of inflammation or injury to foot (10) Morbid obesity in adult with current BMI >35-40 Kg/m Status: Chronic Assessment & Plan Her current BMI is high at 38 kg/m reflecting Her current body weight exceeds by 75 LBS to ideal body weight Informed patient about complications of obesity which includes but not limited to a. Hypoxia, cardiac arrhythmias, pulmonary embolism, embolic CVA, sudden cardiac The patient is recommended weight loss of 80 pounds through Low-carb low calorie 1800-calorie diet and aerobic exercises as tolerated Recommended patient to follow a. daily weight, b. ADA 1800-calorie diet-40% calories from breakfast 30% calories from lunch and dinner each, avoid carbonated soda c. Recommended aerobic exercises like walking 1-5 miles per day, riding on a stationary bike for 1-2 hours Treatment plans as of today Continue hospitalization at telemetry floor Reorder 2D echo exam Request GI consult Continue patient on IV Rocephin broad-spectrum IV antibiotics and bronchodilator Med-Neb treatment Obtain EKGs p.r.n. chest pain Continue patient on NTG, morphine Continue patient on Lipitor and Plavix Continue metoprolol 25 mg PO twice daily Recommend antiplatelet agent like Plavix and Lovenox Reconciled home medication Careful IV hydration Accu-Chek q.a.c. and HS Humalog sliding scale VTE the precautions The patient and/spouse is well informed by me about 1. Clinical impression, treatment plans, side effects of medications, course of the disease And fair to guarded prognosis 2. All patient's and concerns raised by patient or family are satisfactorily addressed by me Prognosis Fair Dietary Evaluation Review Recommendations by RD: Dietary education by RD, Decrease Calorie Intake Expected Outcomes/Goals: Recommended patient to intentionally lose 75 lbs from CBW through ADA 1800 calorie diet and exercise as tolerated Goal is to avert obesity related comorbidities such as obesity hypoventilation, tachycardia, embolic events, CVA, PE and sudden deaths Plan discussed with: Patient, Spouse Total Time (mins): 45 SULY CARDOZO MD Feb 21, 2025 19:28
[2025-02-21] MEDS: VALSARTAN 80 MG TAB PO SCH (19:30)
[2025-02-21] MEDS: hydroCHLOROthiazide 25 MG TAB PO SCH (22:19)
[2025-02-22 01:00] VITALS: BP 147/73; PULSE 67; RESP 17; TEMP 97; O2SAT 95
[2025-02-22 05:00] VITALS: BP 167/93; PULSE 56; RESP 18; TEMP 97.6; O2SAT 96
[2025-02-22 06:19] LABS: Hemoglobin 11.3 g/dL (12.2-16.2); Mean Corpuscular Volume 78.2 fL (80.0-100.0)
[2025-02-22 06:20] LABS: Hematocrit 35.0 % (36.0-46.0); Mean Corpuscular Hemoglobin 25.2 pg (28.0-32.0); Nucleated Red Blood Cells % 0.1 %
[2025-02-22 06:37] LABS: Alanine Aminotransferase 17 U/L (7-40); Albumin 3.5 g/dL (3.2-4.8); Alkaline Phosphatase 107 U/L (46-116); Anion Gap 9 (5-15); BUN/Creatinine Ratio 29.3 (10.0-20.0); Blood Urea Nitrogen 17 mg/dL (9-23); Calcium 8.7 mg/dL (8.7-10.4); Carbon Dioxide 27 mmol/L (20-31); Potassium 3.7 mmol/L (3.5-5.1); Sodium 143 mmol/L (136-145); Total Protein 6.4 g/dL (5.7-8.2)
[2025-02-22 06:45] LABS: Bilirubin, Total 0.3 mg/dL (0.2-1.0); Chloride 107 mmol/L (98-107); Glucose 111 mg/dL (74-106)
[2025-02-22 08:00] VITALS: PULSE 53
[2025-02-22 09:00] VITALS: BP 163/81; PULSE 56; RESP 16; TEMP 98.1; O2SAT 95
--- NOTE | 2025-02-22 12:46 | DVHINCON2 ---
GI Consult Consult Note GI consult note Date of Consultation: 02/22/2025 Chief Complaint: Acute chronic iron deficiency anemia may need colonoscopy Referring Physician: Dr. Charles H&P: 64-year-old female admitted with complains of progressive worsening of chest congestion, cough, wheezing and chest pain. Patient still complaining of chest pain at this time. Denies abdominal pain. No nausea or vomiting. No melena or red blood in stool. Unsure about last colonoscopy possibly more than 10 years ago within normal limits per patient Patient is on Plavix and Lovenox. Also taking Celebrex and Jardiance Past Medical History: COPD, hypertension, and IDDM, hypercholesterolemia, morbid obesity, DC, occlusive CAD, myalgia, bipolar Past Surgical History: Total hip replacement Social History: NO smoking, drinking ETOH and use of illegal drugs. Family History: Noncontributory Review of Systems: Constitutional: no fever, chill, weight loss HEENT: no eye pain, no hearing loss, no oral lesion, no scleral icterus Heart:+chest pain, no chest pressure Lung: no cough, no dyspnea with exertion Abdomen: see HPI Physical exam: General: NAD, AAOX3 Chest: lung [place] clear to auscultation Heart: RRR, no murmur Abdomen: non-distended, no tenderness to palpation, +BS Labs: Labs Test 02/22/25 11:09 02/22/25 05:25 02/20/25 05:39 02/18/25 01:55 Range/Units POC Glucose 109 H 70-106 mg/dl White Blood Count 8.7 4.4-10.8 10^3/uL Red Blood Count 4.48 4.0-5.20 10^6/uL Hemoglobin 11.3 L 12.2-16.2 g/dL Hematocrit 35.0 L 36.0-46.0 % Mean Corpuscular Volume 78.2 L 80.0-100.0 fL Mean Corpuscular Hemoglobin 25.2 L 28.0-32.0 pg Mean Corpuscular Hemoglobin Concent 32.3 32.0-36.0 g/dL Red Cell Distribution Width 16.2 H 11.8-14.3 % Platelet Count 286 140-450 10^3/uL Mean Platelet Volume 8.5 6.9-10.8 fL Neutrophils (%) (Auto) 63.6 37.0-80.0 % Lymphocytes (%) (Auto) 27.3 10.0-50.0 % Monocytes (%) (Auto) 7.9 0.0-12.0 % Eosinophils (%) (Auto) 0.6 0.0-7.0 % Basophils (%) (Auto) 0.6 0.0-2.0 % Neutrophils # (Auto) 5.5 1.6-8.6 10 ^3/uL Lymphocytes # (Auto) 2.4 0.4-5.4 10 ^3/uL Monocytes # (Auto) 0.7 0-1.3 10 ^3/uL Eosinophils # (Auto) 0.1 0-0.8 10 ^3/uL Basophils # (Auto) 0.1 0-0.2 10 ^3/uL Nucleated Red Blood Cells 0.1 % Sodium Level 143 136-145 mmol/L Potassium Level 3.7 3.5-5.1 mmol/L Chloride Level 107 98-107 mmol/L Carbon Dioxide Level 27 20-31 mmol/L Anion Gap 9 5-15 Blood Urea Nitrogen 17 9-23 mg/dL Creatinine 0.58 0.550-1.02 mg/dL Glomerular Filtration Rate Calc 100 >90 mL/min BUN/Creatinine Ratio 29.3 H 10.0-20.0 Serum Glucose 111 H 74-106 mg/dL Calcium Level 8.7 8.7-10.4 mg/dL Total Bilirubin 0.3 0.2-1.0 mg/dL Aspartate Amino Transferase (AST) 13 13-40 U/L Alanine Aminotransferase (ALT) 17 7-40 U/L Alkaline Phosphatase 107 46-116 U/L Total Protein 6.4 5.7-8.2 g/dL Albumin 3.5 3.2-4.8 g/dL Phosphorus Level 2.8 2.4-5.1 mg/dL Magnesium Level 1.9 1.6-2.6 mg/dL Troponin I High Sensitivity 66 *H </=34 ng/L Test 02/17/25 22:49 02/17/25 07:05 02/16/25 23:20 02/16/25 23:00 Range/Units C-Reactive Protein High Sensitivity 1.04 H <1.0 mg/dL Hemoglobin A1c 6.6 H <5.7 % A1C D-Dimer, Quantitative 0.43 0.0-0.49 mg/L FEU Triglycerides Level 134 < 150 mg/dL Cholesterol Level 158 < 200 mg/dL LDL Cholesterol 86 < 100 mg/dL HDL Cholesterol 57 40-59 mg/dL Lipase 31 12-53 U/L Urine Color Colorless Yellow Urine Clarity Turbid H Clear Urine pH 6.5 5.0-9.0 Urine Specific [place] 1.008 1.001-1.035 Urine Protein Trace H Negative Urine Ketones Negative Negative Urine Blood Trace H Negative /uL Urine Nitrite Negative Negative Urine Bilirubin Negative Negative Urine Urobilinogen Normal Negative mg/dL Urine Leukocyte Esterase 3+ Negative /uL Urine RBC 6 0 - 4 /hpf Urine WBC Clumps Present None Seen /hpf Urine Microscopic WBC 248 H 0-5 /HPF Urine Squamous Epithelial Cells None seen <5 /hpf Urine Bacteria None seen None Seen /hpf Urine Glucose Normal Normal mg/dL Microbiology Date/Time Source Procedure Growth Status 02/16/25 23:30 Blood Blood Culture - Final NO GROWTH AFTER 5 DAYS OF INCUBATION. Complete 02/16/25 23:00 Urine - Catheterized Urine Culture - Final Escherichia coli Complete Imaging: Assessment: Chest pain COPD Anemia Plan: -discussed with Dr. Fink Discussed extensively possible colonoscopy with patient, including risks, benefits and alternatives of procedure. Also discussed sedation during procedure and risks of benefits of this also. Patient at this time is denying having this procedure. Risks and benefits again discussed with patient Protonix Monitor labs Stool for occult blood Please repeat GI services if patient wants to proceed with colonoscopy, at which time would request for cardiac clearance for this patient. And to hold Plavix Lovenox on Jardiance Discussed plan with patient and RN Thank you for this consult Date of Service: Feb 22, 2025 Billing Provider: SCARLET ANDERSEN Common Visit Codes: CONSULT ONLY Consultation Codes: [id number] CONSULT <60MIN SCARLET ANDERSEN Feb 22, 2025 12:46
[2025-02-22 13:00] VITALS: BP 174/98; PULSE 102; RESP 18; TEMP 98.2; O2SAT 97
[2025-02-22 17:00] VITALS: BP 152/83; PULSE 60; RESP 19; TEMP 98.2; O2SAT 97
--- NOTE | 2025-02-22 17:10 | DVHPN2 ---
Progress Note - Dictate Date Seen: Feb 22, 2025 Has the PT tested + for MRSA If YES, has PT been informed?: No Medical Necessity Reason Pt with a Central, PICC or Fol: No Subjective The Patient seems to be recovering from symptoms of chest congestion cough Chest tightness and wheezing from acute exacerbation of COPD as she responded to IV antibiotics, and bronchodilators med neb treatments * She receives parenteral analgesics for pain management Her lower back pains from DJD of LS spine as well as flare-up of fibromyalgia Related generalized body aches and pains improving * Her 12 lead EKG- raised concern about possible anteroseptal NH but indeterminate * Patient had coronary angiogram unremarkable for occlusive CAD except PCI to RCA since 2007-patent stent Overnight events are reviewed through medical chart and case discussion with patient's assigned RN while making rounds on patient on the day of service vital signs Vital Sign Date Time Temp Pulse Resp B/P (MAP) Pulse Ox O2 Delivery O2 Flow Rate FiO2 02/22/25 13:00 98.2 102 18 174/98 (123) 97 98.2 02/22/25 08:00 Room Air* 0 21 Total Intake and Output 02/21/25 02/21/25 02/22/25 15:00 23:00 07:00 Intake Total 700 ml 575 ml Balance 700 ml 575 ml medications Current Medications Medications Dose Ordered Sig/Kitty Route Start Time Stop Time Status Last Admin Dose Admin Nitroglycerin 0.4 mg Q5MINP PRN SL 02/16/25 21:30 Hold Morphine Sulfate 2 mg Q30M PRN IV 02/16/25 21:30 Albuterol 90 mcg Q6HPRN PRN IN 02/16/25 21:30 Cancel Clopidogrel Bisulfate 75 mg DAILY PO 02/17/25 10:00 02/21/25 09:23 75 MG Docusate Sodium 100 mg DAILYP PRN PO 02/16/25 21:30 02/20/25 09:33 100 MG Duloxetine HCl 30 mg DAILY PO 02/17/25 10:00 02/22/25 11:45 30 MG Empaglifozin 10 mg DAILY PO 02/17/25 10:00 02/22/25 10:41 10 MG Multivitamins 1 tab DAILY PO 02/17/25 10:00 02/22/25 10:41 1 TAB Oxybutynin Chloride 10 mg DAILY PO 02/17/25 10:00 02/22/25 10:40 10 MG Pantoprazole Sodium 40 mg QAM PO 02/17/25 07:00 02/22/25 05:44 40 MG Sildenafil Citrate 20 mg TID@08,14,20 PO 02/17/25 08:00 02/22/25 15:25 20 MG Patient Own Medication 1 tab DAILY PO 02/17/25 10:00 Betamethasone Dipropion Augmented 1 applic BID TOP 02/17/25 10:00 02/17/25 10:00 1 APPLIC Celecoxib 200 mg HS PO 02/17/25 22:00 02/21/25 21:54 200 MG Citalopram Hydrobromide 40 mg DAILY PO 02/17/25 10:00 02/22/25 10:40 40 MG Insulin Human Lispro AC SC 02/17/25 07:00 02/19/25 06:44 3 UNITS Insulin Human Lispro HS SC 02/16/25 22:00 02/17/25 22:55 4 UNITS Hydrocortisone Sodium Succinate 50 mg Q12HR IV 02/16/25 22:30 02/22/25 10:39 50 MG Insulin Glargine 10 units QAM SC 02/17/25 07:00 02/22/25 05:54 10 UNITS Ceftriaxone Sodium 100 ml @ 100 mls/hr DAILY@2100 IV 02/16/25 23:00 02/21/25 21:56 100 MLS/HR Hydromorphone HCl 0.6 mg Q4HP PRN IV 02/16/25 22:15 02/22/25 12:41 0.6 MG Hydromorphone HCl 1 mg Q4HP PRN IV 02/16/25 22:15 02/22/25 04:21 1 MG Atorvastatin Calcium 40 mg HS PO 02/18/25 22:00 02/21/25 21:54 40 MG Enoxaparin Sodium 40 mg BID SC 02/19/25 10:00 02/22/25 10:50 40 MG Metoprolol Succinate 25 mg DAILY PO 02/18/25 16:15 02/22/25 10:49 25 MG Clonidine HCl 0.1 mg Q6HPRN PRN PO 02/19/25 08:30 Clonidine HCl 0.3 mg Q6HPRN PRN PO 02/19/25 09:00 Clonidine HCl 0.2 mg Q6HPRN PRN PO 02/19/25 09:00 Ketorolac Tromethamine 30 mg Q8HPRN PRN IV 02/20/25 23:45 02/25/25 23:44 02/21/25 09:26 30 MG Sodium Chloride 1,000 ml @ 10 mls/hr Q24H IV 02/21/25 19:30 02/21/25 21:53 10 MLS/HR Hydrochlorothiazide 12.5 mg DAILY@BREAKFAST PO 02/21/25 19:30 02/22/25 08:25 12.5 MG Valsartan 160 mg DAILY@DINNER PO 02/21/25 19:30 02/21/25 19:30 160 MG objective Gen. appearance: Well-developed, morbidly obese middle-aged -[place] female appears Clinically improving from chest congestion, pains and generalized pains HEENT Head normocephalic nontraumatic, Eyes EOMI, PERRLA, conjunctiva -pale, sclera nonicteric ENT-bilateral nasal congestion, no hyperemia of TM, Tongue/mucous membranes wet NECK: Supple, trachea R off midline , carotid upstroke +2, JVD 3 cm, No thyroid or lymph node enlargement, no use of accessory muscles [id number] muscle tenderness present, ROM at C-spine full CHEST: Emphysematous, costochondral tenderness-improving, Hypoventilation at bilateral bases Breast Deferred RS: Clear breath sounds at anterior lung [place],Reduced breath sounds at bilateral bases Few late inspiratory wheezes and rales at bilateral posterior lung [place] and bases CVS: PMI-2 cm lateral to L MCL line in the sixth ICS, S1-S2/A1-A2 normal sinus, accentuated no gallop no murmur GI: Abdomen soft, obese +4, bowel sounds normoactive, no focal tenderness no mass or hernia, no hepatosplenomegaly Rectal: Deferred Genitourinary: Deferred Back: CVA tenderness minimal, bilateral lumbosacral spinal muscle tenderness present Bilateral suprascapular point tenderness present, Straight leg raising test negative EXTs: Wounds Bilateral upper/lower extremities-multiple pigmented scabs of varying size Pulses:Distal pulses +2, no rash, no edema, capillary refill instant, Feels peripherally warm Joints: Reduced ROM at bilateral hips and knee Neuro: Patient is awake alert oriented 3, affect depressed cognitive intact DTR +2, No focal motor deficit, changes of diabetic peripheral neuropathy, gait NE laboratory and microbiology Laboratory Tests 02/22/25 05:25 Test 02/22/25 05:25 Range/Units Serum Glucose 111 H 74-106 mg/dL Problem List 1. Acute exacerbation of COPD Triggered by acute asthmatic bronchitis.......................... Significantly improving 2. Acute chest pain....................................................... Significantly improving Rule out NH Known history of CAD, hypertension hypercholesterolemia NIDDM 3. Urinary tract infection................................................. Significantly improving 4. Acute flare-up of fibromyalgia....................................... Significantly improving 2' Diagnosis/Comorbidities Hypertensive CAD Hypercholesterolemia Morbid obesity in adult with current BMI 35-40 kg / m2 Assessment/Plan Comprehensive Clinical Assessment 1) Acute exacerbation of COPD Triggered by Acute asthmatic bronchitis ......................... Significantly improving Failed outpatient measures Status: Acute Present at the time of admission: Yes Problem specific AP: * Noted significant improvement in her current symptoms as she responded to IV antibiotics and bronchodilator Med-Neb treatments, as tolerated (2) Acute chest pain............................................... Clinically stable and improved Elevated troponins Possible acute non STEMI vs myocardial strain Status: Acute Present at the time of admission: Yes Problem specific AP: * Patient was symptomatic for chest pains which are inducible on palpation * 12 lead EKG-unremarkable for acute ST-elevation * Elevated troponin seemed to be from myocardial strain pattern * Known significant cardiac history and risk factors * History of CAD, status post PCI to RCA * Multiple angiogram including recent most 11/2022- No new occlusive lesions * Awaiting 2D echo exam. Repeat request has been made * Recommended to continue Plavix, Lovenox and telemetry observation (4) Acute urinary tract infection secondary to E coli.......... Significantly Improving Status: Acute Assessment & Plan: * known history of stricture of urethra and recurrent UTI * Urine cultures remarkably positive for E coli sensitive to cephalosporins * Continue IV ceftriaxone for 7 days for recurrent infections (5) Acute flare-up of fibromyalgia Triggered by lower respiratory infection...................... Significantly improving Status: Acute on chronic Assessment & Plan: Known history of fibromyalgia * Acute flare up triggered by viral upper respiratory infection * Reports severe generalized aches and pains including chest upper and Lower back * Recommended IV steroids, non-steroidals, pain management (6) Acute on chronic iron-deficiency anemia Status: Acute on chronic Assessment & Plan: No sign of obvious bleeding We will refer to Dr. Nely Fink for outpatient GI evaluation (7) Hypercholesterolemia Status: Chronic Assessment & Plan: Known history of hypercholesterolemia Recommended patient to receive low-cholesterol diet and Lipitor Ecotrin. Side effects of medications are discussed with the patient (8) Uncontrolled hypertension Status: Chronic Assessment & Plan: Known history of hypertension for long time Complicated by severe concentric LVH on 2D echo Currently on beta-blockers and Diovan with addition of thiazide (9) Well controlled diabetes mellitus Status: Chronic Assessment & Plan: Her diabetes remains under fair control. Her hemoglobin A1c runs between 6.6% a. Obesity and insulin resistance b. Noncompliance with diet and medications c stress from acute NH, UTI Discussed with patient about all pertinent etiologic causes of uncontrolled NIDDM Full diabetic education is given to patient a, 1800-calorie ADA diet b. Combination of basal and short acting insulin therapy c. Intentional weight loss of 75 lbs is through diet and exercise d. Monitoring hemoglobin A1c,, CMP every 3 months lipid panel every 6 months 24-hour urine check for microalbuminuria on annual basis e. Recommended annual physical exam by dentist, fruit bar maker and eye doctor f. Report to podiatry for any sign of inflammation or injury to foot (10) Morbid obesity in adult with current BMI >35-40 Kg/m Status: Chronic Assessment & Plan Her current BMI is high at 38 kg/m reflecting Her current body weight exceeds by 75 LBS to ideal body weight Informed patient about complications of obesity which includes but not limited to a. Hypoxia, cardiac arrhythmias, pulmonary embolism, embolic CVA, sudden cardiac The patient is recommended weight loss of 80 pounds through Low-carb low calorie 1800-calorie diet and aerobic exercises as tolerated Recommended patient to follow a. daily weight, b. ADA 1800-calorie diet-40% calories from breakfast 30% calories from lunch and dinner each, avoid carbonated soda c. Recommended aerobic exercises like walking 1-5 miles per day, riding on a stationary bike for 1-2 hours Treatment plans as of today Continue hospitalization at telemetry floor Reorder 2D echo exam Request GI consult Continue patient on IV Rocephin broad-spectrum IV antibiotics and bronchodilator Med-Neb treatment Obtain EKGs p.r.n. chest pain Continue patient on NTG, morphine Continue patient on Lipitor and Plavix Continue metoprolol 25 mg PO twice daily Recommend antiplatelet agent like Plavix and Lovenox Reconciled home medication Careful IV hydration Accu-Chek q.a.c. and HS Humalog sliding scale VTE the precautions The patient and/spouse is well informed by me about 1. Clinical impression, treatment plans, side effects of medications, course of the disease And fair to guarded prognosis 2. All patient's and concerns raised by patient or family are satisfactorily addressed by me Dietary Evaluation Review Recommendations by RD: Dietary education by RD, Decrease Calorie Intake Comments: Nutrition Recommendation: 1) CCHO 60gm + cardiac diet 2) Monitor PO intake, lab values, weight trend, and I/O Expected Outcomes/Goals: Intake to meet >75% estimated needs Lab values to improve FU 3-5 days SULY CARDOZO MD Feb 22, 2025 17:10
--- NOTE | 2025-02-22 17:11 | DVHDS2 ---
Discharge Summary Date of Admission Feb 16, 2025 at 21:20 Date of Discharge: Feb 22, 2025 Labs/Diagnostic Data: Laboratory Results Test 02/22/25 11:09 02/22/25 05:25 02/20/25 05:39 02/18/25 01:55 POC Glucose 109 mg/dl (70-106) White Blood Count 8.7 10^3/uL (4.4-10.8) Red Blood Count 4.48 10^6/uL (4.0-5.20) Hemoglobin 11.3 g/dL (12.2-16.2) Hematocrit 35.0 % (36.0-46.0) Mean Corpuscular Volume 78.2 fL (80.0-100.0) Mean Corpuscular Hemoglobin 25.2 pg (28.0-32.0) Mean Corpuscular Hemoglobin Concent 32.3 g/dL (32.0-36.0) Red Cell Distribution Width 16.2 % (11.8-14.3) Platelet Count 286 10^3/uL (140-450) Mean Platelet Volume 8.5 fL (6.9-10.8) Neutrophils (%) (Auto) 63.6 % (37.0-80.0) Lymphocytes (%) (Auto) 27.3 % (10.0-50.0) Monocytes (%) (Auto) 7.9 % (0.0-12.0) Eosinophils (%) (Auto) 0.6 % (0.0-7.0) Basophils (%) (Auto) 0.6 % (0.0-2.0) Neutrophils # (Auto) 5.5 10 ^3/uL (1.6-8.6) Lymphocytes # (Auto) 2.4 10 ^3/uL (0.4-5.4) Monocytes # (Auto) 0.7 10 ^3/uL (0-1.3) Eosinophils # (Auto) 0.1 10 ^3/uL (0-0.8) Basophils # (Auto) 0.1 10 ^3/uL (0-0.2) Nucleated Red Blood Cells 0.1 % Sodium Level 143 mmol/L (136-145) Potassium Level 3.7 mmol/L (3.5-5.1) Chloride Level 107 mmol/L (98-107) Carbon Dioxide Level 27 mmol/L (20-31) Anion Gap 9 (5-15) Blood Urea Nitrogen 17 mg/dL (9-23) Creatinine 0.58 mg/dL (0.550-1.02) Glomerular Filtration Rate Calc 100 mL/min (>90) BUN/Creatinine Ratio 29.3 (10.0-20.0) Serum Glucose 111 mg/dL (74-106) Calcium Level 8.7 mg/dL (8.7-10.4) Total Bilirubin 0.3 mg/dL (0.2-1.0) Aspartate Amino Transferase (AST) 13 U/L (13-40) Alanine Aminotransferase (ALT) 17 U/L (7-40) Alkaline Phosphatase 107 U/L (46-116) Total Protein 6.4 g/dL (5.7-8.2) Albumin 3.5 g/dL (3.2-4.8) Phosphorus Level 2.8 mg/dL (2.4-5.1) Magnesium Level 1.9 mg/dL (1.6-2.6) Troponin I High Sensitivity 66 ng/L (</=34) Test 02/17/25 22:49 02/17/25 07:05 02/16/25 23:20 02/16/25 23:00 C-Reactive Protein High Sensitivity 1.04 mg/dL (<1.0) Hemoglobin A1c 6.6 % A1C (<5.7) D-Dimer, Quantitative 0.43 mg/L FEU (0.0-0.49) Triglycerides Level 134 mg/dL (< 150) Cholesterol Level 158 mg/dL (< 200) LDL Cholesterol 86 mg/dL (< 100) HDL Cholesterol 57 mg/dL (40-59) Lipase 31 U/L (12-53) Urine Color Colorless (Yellow) Urine Clarity Turbid (Clear) Urine pH 6.5 (5.0-9.0) Urine Specific [place] 1.008 (1.001-1.035) Urine Protein Trace (Negative) Urine Ketones Negative (Negative) Urine Blood Trace /uL (Negative) Urine Nitrite Negative (Negative) Urine Bilirubin Negative (Negative) Urine Urobilinogen Normal mg/dL (Negative) Urine Leukocyte Esterase 3+ /uL (Negative) Urine RBC 6 /hpf (0 - 4) Urine WBC Clumps Present /hpf (None Seen) Urine Microscopic WBC 248 /HPF (0-5) Urine Squamous Epithelial Cells None seen /hpf (<5) Urine Bacteria None seen /hpf (None Seen) Urine Glucose Normal mg/dL (Normal) Other Laboratory Tests 02/22/25 05:25 Discharge Instruct/Medications Scheduled Aripiprazole (Aripiprazole), 1 TAB PO DAILY, (Reported) Betamethasone Dipropionate (Betamethasone Dipropionat), 1 APPLIC TD BID, (Reported) Betamethasone Dipropionate (Betamethasone Dipropionat), 1 APPLIC TOP DAILY Celecoxib (Celebrex), 200 MG PO HS, (Reported) Clopidogrel Bisulfate (Clopidogrel), 75 MG PO DAILY, (Reported) Duloxetine HCl (Duloxetine HCl), 30 MG PO DAILY, (Reported) Empagliflozin (Jardiance), 10 MG PO DAILY, (Reported) Escitalopram Oxalate (Escitalopram Oxalate), 1 TAB PO DAILY, (Reported) Metformin Hydrochloride (Metformin Hcl Er), 1 TAB PO DAILY, (Reported) Metoprolol Succinate (Metoprolol Succinate Er), 50 MG PO DAILY, (Reported) Multiple Vitamin (Multivitamins), 1 TAB PO DAILY, (Reported) Mupirocin Calcium (Topical) (Mupirocin), 1 APPLIC TOP BID, (Reported) Oxybutynin Chloride (Oxybutynin Chloride), 10 MG PO DAILY, (Reported) Pantoprazole Sodium Sesquihydr (Pantoprazole Sodium), 40 MG PO QAM, (Reported) Prednisone (Prednisone), 10 MG PO BID Rosuvastatin Calcium (Crestor), 1 TAB PO DAILY, (Reported) Sildenafil Citrate (Revatio), 20 MG PO TID@08,14,20 Valsartan (Valsartan), 160 MG PO DAILY Valsartan-Hydrochlorothiazide (Diovan Hct), 1 TAB PO DAILY, (Reported) Scheduled PRN Albuterol Sulfate (Ventolin Mdi), 2 PUFF IN Q6HPRN PRN for SHORTNESS OF BREATH, (Reported) Albuterol Sulfate (Ventolin), 2.5 MG NEB Q4HPRN PRN Baclofen (Baclofen), 10 MG PO Q8HP PRN for spasms , (Reported) Docusate Sodium (Docqlace), 100 MG PO DAILY PRN for FOR CONSTIPATION, (Reported) Oxycodone HCl (Oxycodone Hydrochloride), 20 MG PO Q8HPRN PRN for PAIN SCALE 7 THRU 10, (Reported) Miscellaneous Medications Nifedipine (Nifedipine ER), 60 MG PO, (Reported) Discontinued Medications Tizanidine Hydrochloride (Tizanidine Hcl), 4 MG PO BID, (Reported) Discharge Statement: "Patient was advised to return to the ER or call 911 if any headaches, dizziness, shortness of breath, chest pain, abdominal pain, bleeding, fevers, or worsening of medical condition. Patient was counseled about treatment plan, medications, possible side effects, patientverbalized understanding. All questions were answered to the best of my ability. This discharge took greater then 30 minutes in planning, reviewing documentation, counseling the patient, and discussing with other team members." ASSESSMENT ASSESSMENT Assessment SULY CARDOZO MD Feb 22, 2025 17:11
--- NOTE | 2025-02-22 17:15 | DVHSR ---
APPROVED REPORT EXAM: Two-dimensional and M-mode echocardiogram with Doppler and color Doppler. Blood Pressure: 167/93 mmHg INDICATION Rule out CHF RISK FACTORS Height: 5'5, Weight: 235 DIMENSIONS LVDd 4.4 (3.8-5.7cm) LA (2D) (1.9-4.0cm) Aortic Root 2.4 (2.0-3.7cm) LVDs 3.2 (2.5-4.0cm) LA (MM) (1.9-4.0cm) Aortic Cusp Exc 1.4 (1.5-2.0cm) EF (%) 55.0 (55-70%) Rt. Atrium (1.9-4.0cm) Asc. Aorta 2.7 cm IVSd 1.3 (0.7-1.1cm) RV (D) (1.8-2.4cm) PWd 1.3 (0.7-1.1cm) Mitral Valve Mitral Mitral Stenosis E wave 0.94m/s MV Mean GR. mmHg A wave 0.95m/s MV Peak GR. mmHg E/A ratio 1.0 2D MVA cm2 DECEL Time 319ms PRESS 1/2 Time ms Aortic Valve Aortic Valve Aortic Stenosis V1 1.39m/s AO Mean GR. 6mmHg V2 1.55m/s AO Peak GR. 10mmHg LVOT Diameter 2.0 (1.8-2.4cm) Doppler GUILLERMO 2.82cm2 Pulmonic Valve V2 1.27m/s Other Information Technically limited study due to body habitus and patient position. Conclusion lvef 65% moderate LVH normal rv function normal atria no severe valve abnormalities noted
[2025-02-22 18:16] LABS: Urine Protein, UAD Negative (Negative)
== END 2025-02-22 19:10 | disposition home or self-care (01) | DRG 202 ==
LOC: TELE-EAST 21:20
PROVIDERS: ADMIT Specialist; ATTEND Specialist
DX: J45.901 Unspecified asthma with (acute) exacerbation (principal); J44.1 Chronic obstructive pulmonary disease with (acute) exacerbation; E88.819 Insulin resistance, unspecified; E11.9 Type 2 diabetes mellitus without complications; B96.20 Unspecified Escherichia coli [E. coli] as the cause of diseases classified elsewhere; D50.9 Iron deficiency anemia, unspecified; N39.0 Urinary tract infection, site not specified; E66.01 Morbid (severe) obesity due to excess calories; I10 Essential (primary) hypertension; F31.9 Bipolar disorder, unspecified; M79.7 Fibromyalgia; E78.00 Pure hypercholesterolemia, unspecified; E86.1 Hypovolemia; E87.8 Other disorders of electrolyte and fluid balance, not elsewhere classified; Z77.22 Contact with and (suspected) exposure to environmental tobacco smoke (acute) (chronic); K21.9 Gastro-esophageal reflux disease without esophagitis; M47.817 Spondylosis without myelopathy or radiculopathy, lumbosacral region; I25.10 Atherosclerotic heart disease of native coronary artery without angina pectoris; Z96.641 Presence of right artificial hip joint; Z98.61 Coronary angioplasty status; Z91.148 Patient's other noncompliance with medication regimen for other reason; Z91.119 Patient's noncompliance with dietary regimen due to unspecified reason; Z87.891 Personal history of nicotine dependence; Z87.440 Personal history of urinary (tract) infections; Z86.73 Personal history of transient ischemic attack (TIA), and cerebral infarction without residual deficits; Z79.899 Other long term (current) drug therapy; Z79.84 Long term (current) use of oral hypoglycemic drugs; Z79.4 Long term (current) use of insulin; I25.2 Old myocardial infarction; Z88.8 Allergy status to other drugs, medicaments and biological substances; Z80.9 Family history of malignant neoplasm, unspecified; Z82.49 Family history of ischemic heart disease and other diseases of the circulatory system; Z68.39 Body mass index [BMI] 39.0-39.9, adult
CPT/HCPCS: 36415; 71046; 80053; 80061; 81001; 82962; 83036; 83690; 83735; 84100; 84484; 85025; 85379; 86141; 87040; 87086; 87088; 87186; 93005; 93306; 94640; G0378; J1815; J1885